=== PATIENT | female | born 1965 | race Caucasian/White ===

== ENCOUNTER → 2017-12-25 10:00 | Outpatient (CLI) | payer MEDICARE, MEDICAID, SELFPAY | PROVIDERS: PCP Nurse Practitioner Family; Visit Provider Urology | DX: N39.41 Urge incontinence (principal); N31.9 Neuromuscular dysfunction of bladder, unspecified | CPT/HCPCS: 99213 ==

== ENCOUNTER 2018-01-04 05:26 | Inpatient (IN) | payer MEDICARE, MEDICAID, SELFPAY ==
[2018-01-04] VITALS (146 sets, daily range): BP systolic 76–173; BP diastolic 44–130; PULSE 0–184; RESP 13–54; TEMP 36.8–41.4; O2SAT 84–100
[2018-01-04] MEDS: Lactated Ringers 1,000 ML 2000 ML IV (05:35)
--- NOTE | 2018-01-04 05:39 | ED.GENADUL_ITS ---
Disposition Clinical Impression: UTI (urinary tract infection), Sepsis, JOSEPH (acute kidney injury), Non-STEMI ( non-ST elevated myocardial infarction), Electrolyte abnormality Disposition: [facility] INPATIENT Condition: Critical Medical Decision Making - Lab Data Results reviewed for labs ordered during visit: Yes - EKG Data -: EKG Interpreted by Me - Radiology Data Radiology results: report reviewed, image reviewed - Medical Decision Making Patient found to be febrile and tachycardic with altered mental status. Baseline is tremor with difficulty swallowing and speaking but capable of same. Her legs are mottled. Will get 2 IVs established and give 2 L of LR. Will Place Mccall for urine output. Pursue septic workup including chest x-ray and urine as well as blood cultures. Abdomen appears to be soft and nontender. Patient's heart rate has remained around 100-110. Systolic pressure has been greater than 100. She is still slightly mottled. Mental status is unchanged. Laboratory miranda she is found to have a white count of 12. She has evidence of JOSEPH with a BUN of 36 and a creatinine of 2.2. Potassium is 5.2. Magnesium 3.2. Glucose was called as a critical value at 39. She was given an amp of D50. 2 L of LR has finished and she was switched over to D5 LR at 100 an hour. She does not have a history of diabetes and she is not on any insulin or oral hypoglycemics. Presumably hypoglycemia is related to sepsis. Lactic acid is 4.8. Troponin was also called as critical value at 3.72. EKG was attempted but because of her Parkinson's and her tremor there is a significant amount of artifact. It is sinus tach. At least in the precordial leads that does not appear to be any ST elevation suggesting STEMI. Her limb leads are almost impossible to read. Urinalysis is contaminated despite it being a Mccall catheter specimen. A repeat urine was obtained and continues to have squamous contamination but she has packed feels bacteria. We will go ahead and culture this. Suspect this is her source of infection. Her chest x-ray per my interpretation shows no airspace disease. Repeat blood glucose by fingerstick is 215. She still very tremulous. I am going to give her a small dose of Ativan 0.25 mg IV to see if this helps with her tremor so we can try to get a better EKG. I think her troponin is probably related to a non-STEMI due to sepsis. I have ordered 300 of aspirin rectally. I have also ordered a gram of ceftriaxone IV. Patient discussed with hospitalist, Dr. Fermin. Ativan did help with her tremor to enough degree that a reasonable EKG was obtained. It is sinus tachycardia at 111. There are no acute ST elevations noted. There may be mild ST depressions in the inferior lateral leads but these are inconsistent and may be related to artifact versus true ST depression. Her mental status has not really improved. Her heart rate and blood pressure have remained stable. Saturations are most likely low to mid 90s on oxygen but because of poor waveform is difficult to ascertain with certainty. She does not appear to be in respiratory distress. Her lungs continue to sound clear. Chest x-ray per my interpretation is clear. Hospitalist has agreed to keep the patient here in the ICU. Repeat urine continues to show some squamous epithelial contamination. However, she also continues to be packed with bacteria. Lab suggested just doing a culture but feel that the squamous contamination from a Mccall specimen is likely related to her just being so dehydrated. So presumably this is a uroseptic picture. Ceftriaxone is going in. She will be admitted to the ICU here to be stabilized. Diagnosis is sepsis from presumed UTI, acute kidney injury, non- STEMI, electrolyte abnormalities. History of Present Illness - General Stated complaint: CALEX Time Seen by Provider: 01/04/18 05:27 Source: EMS, old records reviewed Mode of arrival: EMS Limitations: altered mental status - History of Present Illness Initial comments: Patient sent over from [facility] for evaluation of fever, altered mental status, increased tremor and spasticity. Patient has a history of Parkinson's and has difficulty swallowing, tremor, spasticity at baseline. This morning noted to be mottled and altered. She typically is able to speak but is not currently doing so. Her tremor and spasticity seemed to be worse. She was sent here for evaluation. - Related Data Baclofen 10 mg PO HS prn #30 tab-cap 07/25/16 Amantadine [Symmetrel] 200 mg PO BID 08/15/16 Acetaminophen [Tylenol] 650 mg PO Q4H PRN PRN tab-cap 11/15/16 FLUoxetine [PROzac] 20 mg PO DAILY tab-cap 11/15/16 Polyethylene Glycol 3350 [Miralax] 17 gm PO DAILY PRN 08/15/17 Ropinirole HCl [Requip] 0.25 mg PO TID 7 Days #20 tablet 08/15/17 Carbidopa/Levodopa [Rytary Er 48.75 Mg-195 Mg Cap] 1 each PO TID 08/30/17 Naproxen Sodium [Aleve] 220 mg PO Q12H tab-cap 12/25/17 Omeprazole 20 mg PO DAILY tab-cap 12/25/17 Propranolol HCl 40 mg PO DAILY 12/25/17 Tolterodine [Detrol] 2 mg PO BID tab-cap 12/25/17 Bisacodyl [Dulcolax Suppository] 1 supp KS PRN PRN 01/04/18 Calcium Carb *Tums* [Tums] 1 tab PO Q6H PRN 01/04/18 Docusate Sodium 100 mg PO BID PRN 01/04/18 Melatonin 3 mg PO HS PRN 01/04/18 Milk of Magnesia [Milk Of Magnesia] 30 mg PO HS PRN 01/04/18 Na Phos,M-B/Na Phos,Di-Ba [Fleet Enema] 1 btl KS PRN PRN 01/04/18 Allergies Allergy/AdvReac Type Severity Reaction Status Date / Time environmental Allergy Uncoded 01/04/18 06:56 Review of Systems Limitations: ROS unobtainable due to patients medical condition Past Medical History - Past Medical History Medical history: arthritis, hyperlipidemia, hypertension Parkinson's disease Surgical history: hysterectomy - Social History Alcohol use: none Drug use: none Living Situation: lives in residential General Exam - General Limitations: altered mental status General appearance: other (Eyes are open but she is nonverbal and does not follow direction.) - Head Head exam: Present: atraumatic, normocephalic - Eye Eye exam: Present: normal apperance, PERRL - ENT ENT exam: Present: mucous membranes moist - Respiratory Respiratory exam: Present: normal lung sounds bilaterally (No wheezing or rhonchi appreciated anteriorly or laterally.). Absent: respiratory distress, accessory muscle use - Cardiovascular Cardiovascular Exam: Present: normal rhythm, tachycardia, normal heart sounds, other (Distal peripheral pulses intact) - GI/Abdominal GI/Abdominal exam: Present: soft. Absent: distended, tenderness - Extremities Exam Extremities exam: Present: other (Spasticity of extremities noted) - Neurological Exam Neurological exam: Present: altered, CN II-XII intact, other (Tremor present in upper extremities right greater than left. Spasticity noted in lower extremities. Nonverbal and altered but awake. No obvious cranial nerve deficit.) - Skin Skin exam: Present: warm, diaphoretic, mottled (Bilateral legs) Critical Care Time Critical Care Time: Yes Total Critical Care Time: 65
[2018-01-04 05:54] LABS: Abs Immature Grans 0.04 k/cumm (0.0-0.09); Absolute Basophil Count 0.01 k/cumm (0.0-0.2); Absolute Eosinophil Count 0.01 k/cumm (0.0-0.7); Absolute Lymphocyte Count 0.67 k/cumm (1.2-3.4); Absolute Monocyte Count 1.16 k/cumm (0.11-0.7); Basophils % 0.1; Eosinophils % 0.1; HCT 37.9 % (36.0-46.0); HGB 12.8 g/dL (12.0-15.5); Immature Grans % 0.3; Lymphocytes % 5.5; Mean Corp. HGB Concentration 33.8 g/dL (32.0-36.0); Mean Corpuscular Hemoglobin 30.5 pg (27.0-33.0); Mean Corpuscular Volume 90.5 fL (80-95); Mean Platelet Volume 9.9 fL (8.0-11.0); Monocytes % 9.5; Neutrophils % 84.5; Platelet Count 319 x1000/uL (130-400); RBC 4.19 m/cumm (4.00-5.20); RBC Distribution Width 13.2 % (11.7-14.6); White Blood Cell Count 12.19 k/cumm (4.4-10.8)
[2018-01-04 06:02] LABS: Bilirubin Negative (Negative); Blood Negative (Negative); Clarity Cloudy; Glucose Negative (Negative); Ketones 15 mg/dL (Negative); Leukocyte Esterase Trace (Negative); Nitrite Negative (Negative); Specific Gravity >= 1.030 (1.005-1.025); Urobilinogen 0.2 EU/dL (Up TO 0.2); pH 5.5 (5-8)
[2018-01-04] MEDS: Acetaminophen 650 MG SUPP PR ×3 (06:09→13:04)
[2018-01-04 06:15] LABS: Lactate-non-spesis 4.8 mmol/L (0.6-1.4)
[2018-01-04 06:17] LABS: Bacteria Packed HPF (Negative); C & S Indicated? No/Sq. Contamination; Casts Negative LPF (Negative); Crystals Moderate Amorphous HPF (Negative); Epithelial Cells Many HPF (Negative); Mucus Moderate (Negative); RBC Negative (0-2); WBC 0-2 HPF (0-5)
--- NOTE | 2018-01-04 06:20 | DI.REPORT_ITS ---
SYMPTOM/DIAGNOSIS: FEVER, ALTERED MENTAL STATUS PORTABLE AP CHEST: 01/04 Note is made of motion artifact. Heart is not enlarged. The lungs are grossly clear and well expanded. CONCLUSION: No evidence of acute disease.
[2018-01-04 06:24] LABS: ALT 39 U/L (12-78); AST 337 U/L (15-37); Albumin 4.8 g/dL (3.4-5.0); Alkaline Phosphatase 98 U/L (46-116); Anion Gap 16.1 mmol/L (3-11); BUN 36 mg/dL (7-18); Bilirubin, Total 1.6 mg/dL (0.2-1.0); CO2 26.9 mmol/L (21.0-32.0); Chloride 101 mmol/L (98-107); Estimated GFR 23.26 (mL/min/1.73m2); Magnesium 3.2 mg/dL (1.8-2.4); Potassium 5.2 mmol/L (3.5-5.1); Sodium 144 mmol/L (136-145); Total Protein 8.4 g/dL (6.4-8.2)
[2018-01-04 06:25] LABS: Glucose 39 mg/dL (70-100); Troponin I 3.72 ng/mL (0.00-0.06)
[2018-01-04] MEDS: Dextrose 50%-Water 25 GM/50 ML SYR IVP (06:27)
[2018-01-04] MEDS: Normal Saline Flush 10 ML SYR IVP ×5 (06:32→15:57)
[2018-01-04] MEDS: DEXTROSE 5%-LACTATED RINGERS 1,000 ML 100 ML IV (06:38)
[2018-01-04 06:42] LABS: Bilirubin Negative (Negative); Blood Negative (Negative); Clarity Cloudy; Glucose Negative (Negative); Ketones Trace mg/dL (Negative); Leukocyte Esterase Trace (Negative); Nitrite Negative (Negative); Specific Gravity >= 1.030 (1.005-1.025); Urobilinogen 0.2 EU/dL (Up TO 0.2); pH 5.5 (5-8)
[2018-01-04 06:56] LABS: Bacteria Packed HPF (Negative); C & S Indicated? No/Sq. Contamination; Crystals Moderate Amorphous HPF (Negative); Epithelial Cells Moderate HPF (Negative); Mucus Trace (Negative); RBC Negative (0-2); WBC 0-2 HPF (0-5)
[2018-01-04] MEDS: LORazepam 2 MG/ML VIAL 0.25 MG IVP (07:01)
[2018-01-04] MEDS: Aspirin 300 MG SUPP PR (07:01)
--- NOTE | 2018-01-04 07:16 | NUR.NOTE ---
Nursing Note: Pt has remained on continuous cardiac cath lab radiology technologist but due to tremors vital signs have not been accurate- only able to obtain manual BPs. MD arroyo
--- NOTE | 2018-01-04 08:51 | DI.VRAD_ITS ---
EXAM: XR Chest, 1 View EXAM DATE/TIME: 01/04/2018 5:43 AM CLINICAL HISTORY: 52 years old, female; Signs and symptoms; Fever and other: AMS; Patient HX: PT unable to stay still or follow breathing instructions, supine image TECHNIQUE: XR of the chest, 1 view. COMPARISON MORE: SC - PORTABLE AP CHEST, POST LINE 10/08/2017 1:24:23 PM COMPARISON: CR - CHEST 2 VIEWS PA,LAT 2017-08-15 18:01 FINDINGS: Tubes, lines and devices: Nasogastric and endotracheal tubes have been removed. Lungs: Unremarkable. No consolidation. Pleural space: Unremarkable. No pleural effusion. No pneumothorax. Heart/Mediastinum: The cardiomediastinal silhouette is stable in appearance allowing for differences in positioning. Bones/joints: A chronic right rib fracture is again present. IMPRESSION: No evidence for acute pulmonary disease. Dictated and Authenticated by: Brennon Cohen MD. Ordering:DARLEEN ALFRED MD
--- NOTE | 2018-01-04 09:19 | PDOC.CMIN ---
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 CURRENT FUNCTIONAL STATUS:: Jaylyn is unable to engage in CM interview; CM will continue to follow. ADVANCE DIRECTIVES:: COLST on file Has patient been provided with information about the portal?: No Did the patient sign up for the portal?: No CODE STATUS:: Full Code INSURANCE COVERAGE / FINANCIAL ISSUES:: Medicare, Medicaid CURRENT HOME/COMMUNITY SERVICES/EQUIPMENT:: Jaylyn is a resident at [facility], the facility manages all of her equipment and service needs. PRIMARY CARE PHYSICIAN:: Barbara Almaguer POTENTIAL DISCHARGE NEEDS:: Coordinated return to [facility]. PATIENT/FAMILY EDUCATION NEEDS:: Review of discharge instructions. ANTICIPATED BARRIERS TO DISCHARGE:: None identifed. TRANSPORTATION:: Via [employer]. [employer] [facility] W[employer]C Van PLAN:: Jaylyn will be treated for sepsis and monitored in the ICU, CM will continue to follow and coordinate her return to [facility] when appropriate.
[2018-01-04] MEDS: Heparin 5,000 UNITS/ML VIAL 5000 UNITS SC ×2 (09:28→21:58)
--- NOTE | 2018-01-04 09:37 | INITIAL_ITS ---
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 CURRENT FUNCTIONAL STATUS:: Jaylyn is unable to engage in CM interview; CM will continue to follow. ADVANCE DIRECTIVES:: COLST on file Has patient been provided with information about the portal?: No Did the patient sign up for the portal?: No CODE STATUS:: Full Code INSURANCE COVERAGE / FINANCIAL ISSUES:: Medicare, Medicaid CURRENT HOME/COMMUNITY SERVICES/EQUIPMENT:: Jaylyn is a resident at [facility], the facility manages all of her equipment and service needs. PRIMARY CARE PHYSICIAN:: Barbara Almaguer POTENTIAL DISCHARGE NEEDS:: Coordinated return to [facility]. PATIENT/FAMILY EDUCATION NEEDS:: Review of discharge instructions. ANTICIPATED BARRIERS TO DISCHARGE:: None identifed. TRANSPORTATION:: Via [employer]. [facility] Van PLAN:: Jaylyn will be treated for sepsis and monitored in the ICU, CM will continue to follow and coordinate her return to [facility] when appropriate.
--- NOTE | 2018-01-04 09:56 | NUR.NOTE ---
Nursing Note: Per H&R, unknown med on JUL is Frozen supplement. PC to ICU to report to TOM Reddy. JUL with name of supplement highlighted sent to ICU
[2018-01-04] MEDS: LORazepam 2 MG/ML VIAL 1 MG IVP ×4 (10:32→11:50)
[2018-01-04 11:49] LABS: Anion Gap 14.8 mmol/L (3-11); BUN 42 mg/dL (7-18); CO2 24.2 mmol/L (21.0-32.0); Calcium 9.3 mg/dL (8.5-10.1); Chloride 104 mmol/L (98-107); Estimated GFR 16.26 (mL/min/1.73m2); Glucose 134 mg/dL (70-100); Potassium 3.3 mmol/L (3.5-5.1); Sodium 143 mmol/L (136-145)
[2018-01-04 12:03] LABS: Troponin I 7.57 ng/mL (0.00-0.06)
[2018-01-04] MEDS: Carbidopa 25/Levodopa 100 TAB NG ×3 (12:29→21:58)
[2018-01-04] MEDS: Insulin Aspart 300 UNITS/3 ML PEN SC ×3 (12:46→22:51)
[2018-01-04] MEDS: POTASSIUM CHLORIDE/D5-0.45NACL 1,000 ML 125 MEQ IV (13:03)
[2018-01-04 13:44] LABS: Creatine Kinase 5697 U/L (26-192)
--- NOTE | 2018-01-04 14:48 | PDOC.HP ---
Date of Service: 01/04/18 Time of Service: 14:49 Assessment/Plan - Assessment/Plan (1) Sepsis syndrome Assessment: Etiology is unclear at this time. Urine does appear to be moderately infected. Does not appear to be a respiratory infection. CSF testing is pending. Empiric therapy with Zosyn 3.375 g IV every 6 hours. Urine culture and blood cultures are pending. Has not required pressor support as yet. (2) Secondary rhabdomyolysis Assessment: CPK level is over 5000. She had a prolonged tremulous episode/seizure that has caused significant muscle breakdown. Creatinine has bumped to 2.20. Will give IV fluids and monitor renal function. Follow CPK levels. (3) Non-ST elevation RI (NSTEMI) Assessment: Troponin bump in the absence of obvious chest pain or EKG changes suggestive of a type II acute coronary syndrome. Appears to be related to demand ischemia secondary to the severe tremulous episode, high fever. Will treat underlying cause. Monitor EKG. Echocardiogram in the a.m. Further workup for coronary disease as an outpatient or as warranted. (4) Parkinsons disease Assessment: Patient has a genetic form of Parkinson's disease not readily amenable to medical Rx. She saw Dr. Gifford 11/28/2017 at which time they were discussing a brain stimulator. She does not appear to have missed any significant Sinemet dosing. NG tube was placed and she will be on Sinemet 25/100 4 times daily. (5) Discharge planning issues Assessment: Patient is a full code per confirmation with family members. She is admitted to our ICU in acute care status. Will provide supportive care and stabilization in anticipation of possible transfer to a tertiary care center once stable. Total time arranging her inpatient admission 224 minutes. C C: Dr. Essence Flood, [facility] History of Present Illness - History of Present Illness Chief Complaint: Sepsis/febrile seizure/rhabdomyolysis/non-ST elevation RI History of Present Illness: This is a 52-year-old woman debilitated by severe Parkinson's disease that resides at [facility]. She apparently had a good day yesterday visited with family and was interactive. She did complain somewhat of a sore neck and felt warm. Family members did not notice any other systemic complaints such as cough or GI distress. Staff at [facility] noted she was alert and responsive through the evening but at 4:30 AM she was noted to be unresponsive and shaking. She was transferred to [facility]. In the emergency room she was extremely tremulous and unresponsive to commands. She had a fever of 41.4?C. She got 0.25 mg of IV lorazepam which suppressed some of the tremor. Initial urinalysis suggested infection and she was empirically started on ceftriaxone IV. Initial troponin was elevated at 3.72, lactate elevated at 4.8. She was transferred to the intensive care unit after discussion with family members. It was felt that she needed to be stabilized prior to transfer to tertiary care if that was indicated. Her initial course in the ICU remained unstable. She continued to have severe tremor and high fever. She was cooled with ice therapy, received per rectum acetaminophen, Lorazepam 1 mg IV was given in bolus form ?3. The tremulousness subsided but she remained unresponsive. Consultation with Dr. Gifford from neurology was obtained. There was initial concern that this could be neuroleptic malignant syndrome on the basis of Parkinson medication withdrawal. Cogentin 1 mg IV twice daily was ordered. EEG monitoring was applied. Keppra 2000 mg ?1. Seizure spikes were not seen on EEG testing. Nonetheless IV Keppra was recommended, 500 mg twice daily. An NG tube was placed and Sinemet 25/100 4 times daily was ordered. Her antibiotics were changed to Zosyn 3.375 g every 6 hours. A repeat EKG did not show significant ST to T changes. Her vital signs were reasonably stable and she did not need pressor support. She maintained her sats on room air. Given her earlier complaint of neck pain and LP is being obtained. Patient remains critical. A family meeting was held. We discussed transfer to a tertiary care center once stabilized. Review of Systems - Review of Systems Constitutional: Fever Respiratory: denies: Cough, Shortness of Breath Cardiovascular: denies: Chest Pain, Palpitations Gastrointestinal: denies: Nausea, Vomiting, Abdominal Pain Musculoskeletal: Neck Pain (Per family report) Other: As obtained from family members - Medications/Allergies Allergies/Adverse Reactions: Allergies Allergy/AdvReac Type Severity Reaction Status Date / Time environmental Allergy Uncoded 01/04/18 06:56 Medications: Current Medications Acetaminophen (Tylenol) 650 mg SC Q4H PRN PRN Last Admin: 01/04/18 13:04 Dose: 650 mg Albuterol Sulfate (Proventil Updraft) 2.5 mg UPD Q2H PRN PRN Carbidopa/Levodopa (Sinemet-25/100 Tablet) 1 tab NG QID [facility] Last Admin: 01/04/18 12:29 Dose: 1 tab Dextrose (Insta-Glucose) 0 gm PO DIRECTED PRN Dextrose/Water () 0 gm IVP DIRECTED PRN Dimethicone/Zinc Oxide (Charla Protect Cream) 0 gm TP PRN PRN Heparin Sodium (Porcine) () 5,000 units SC Q12H [facility] Last Admin: 01/04/18 09:28 Dose: 5,000 units Ceftriaxone Sodium/Dextrose (Rocephin) Confirm Administered Dose 1 gm in 50 mls @ as directed .ROUTE .DM PRN Piperacillin/Tazobactam/Dextrose (Zosyn) 3.375 gm in 50 mls @ 100 mls/hr IVPB Q6H [facility] Last Admin: 01/04/18 09:58 Dose: 100 mls/hr Potassium Chloride/Sodium Chloride (Kcl 20meq/D5-0.45% Nacl) 1,000 mls @ 150 mls/hr IV INFUSION [facility] Last Admin: 01/04/18 13:03 Dose: 125 mls/hr IV Miscellaneous Supplies () 1 each IV DIRECTED [facility] Insulin Aspart (Novolog Flexpen) 0 units SC 0800,1200,1700 [facility] PRN Reason: Protocol Last Admin: 01/04/18 12:46 Dose: 2 units Sodium Chloride (Saline Flush 10 Ml Syringe) 0 ml IVP PRN PRN Last Admin: 01/04/18 11:50 Dose: 40 ml Objective - Exam Vitals and I&O: Vital Signs Temp 38.5 C H 01/04/18 14:14 Pulse 84 01/04/18 13:07 Resp 22 01/04/18 13:40 BP 98/76 01/04/18 13:07 Pulse Ox 98 01/04/18 14:14 Intake & Output 01/03/18 01/04/18 01/04/18 23:59 11:59 23:59 Intake Total 1999 Output Total 100 Balance 1900 Weight 51.1 kg Intake: IV 1999 Output: Urine 100 Other: Urine Color Yellow Urine Appearance Sediment General: Other (Obtunded, unresponsive) HEENT: Other (Very mild bruise in the right adventism region, both pupils markedly dilated but responsive) Neck: Supple. denies: JVD Lungs: Clear to auscultation Cardiovascular: denies: Regular rate (Tachycardic), Murmurs Abdomen: Soft. denies: Tenderness, Hepatospenomegaly Extremities: Other (Mottled appearing but warm with good distal pulses) Skin: denies: Rashes Neurological: Other (Obtunded, during her tremulous episode she did crawl her hands inward and her toes pointed inward as in decorticate posturing, this subsided when the tremulous episode stopped.) - Procedures Procedures: LP pending Chest x-ray negative Serial EKGs show some subtle inferior lead ST depression that does not progress Troponins 3.72, 7.57 Results - Laboratory Data Result Diagrams: 01/04/18 05:40 01/04/18 11:35 Laboratory Results: Laboratory Tests 01/04/18 01/04/18 01/04/18 05:40 05:40 05:56 WBC 12.19 H RBC 4.19 Hgb 12.8 Hct 37.9 MCV 90.5 MCH 30.5 MCHC 33.8 RDW 13.2 Plt Count 319 MPV 9.9 Immature Gran % 0.3 Neutrophils % 84.5 Lymphocytes % 5.5 Monocytes % 9.5 Eosinophils % 0.1 Basophils % 0.1 Absolute Neutrophils 10.30 H Absolute Lymphocytes 0.67 L Absolute Monocytes 1.16 H Absolute Eosinophils 0.01 Absolute Basophils 0.01 Sodium 144 Potassium 5.2 H Chloride 101 Carbon Dioxide 26.9 Anion Gap 16.1 H BUN 36 H Creatinine 2.20 H Estimated GFR/1.73 m2 23.26 Glucose 39 L Lactate Calcium 10.0 Magnesium 3.2 H Total Bilirubin 1.6 H AST 337 H ALT 39 Alkaline Phosphatase 98 Troponin I 3.72 H Total Protein 8.4 H Albumin 4.8 Urine Color Yellow Urine Clarity Cloudy Urine pH 5.5 Ur Specific Ezel >= 1.030 H Urine Protein 30 H Urine Ketones 15 H Urine Blood Negative Urine Nitrite Negative Urine Bilirubin Negative Urine Urobilinogen 0.2 Ur Leukocyte Esterase Trace H Urine RBC Negative Urine WBC 0-2 Ur Epithelial Cells Many Urine Crystals Moderate amorphous Urine Bacteria Packed Urine Casts Negative Urine Mucus Moderate Ur Culture Indicated? No/sq. contamination Urine Glucose Negative 01/04/18 01/04/18 06:00 06:30 WBC RBC Hgb Hct MCV MCH MCHC RDW Plt Count MPV Immature Gran % Neutrophils % Lymphocytes % Monocytes % Eosinophils % Basophils % Absolute Neutrophils Absolute Lymphocytes Absolute Monocytes Absolute Eosinophils Absolute Basophils Sodium Potassium Chloride Carbon Dioxide Anion Gap BUN Creatinine Estimated GFR/1.73 m2 Glucose Lactate 4.8 H Calcium Magnesium Total Bilirubin AST ALT Alkaline Phosphatase Troponin I Total Protein Albumin Urine Color Yellow Urine Clarity Cloudy Urine pH 5.5 Ur Specific Ezel >= 1.030 H Urine Protein 30 H Urine Ketones Trace H Urine Blood Negative Urine Nitrite Negative Urine Bilirubin Negative Urine Urobilinogen 0.2 Ur Leukocyte Esterase Trace H Urine RBC Negative Urine WBC 0-2 Ur Epithelial Cells Moderate Urine Crystals Moderate amorphous Urine Bacteria Packed Urine Casts Urine Mucus Trace Ur Culture Indicated? No/sq. contamination Urine Glucose Negative - Imaging Studies Imaging Studies: Chest x-ray negative
--- NOTE | 2018-01-04 15:05 | PDOC.HP_ITS ---
Date of Service: 01/04/18 Time of Service: 14:49 Assessment/Plan - Assessment/Plan (1) Sepsis syndrome Assessment: Etiology is unclear at this time. Urine does appear to be moderately infected. Does not appear to be a respiratory infection. CSF testing is pending. Empiric therapy with Zosyn 3.375 g IV every 6 hours. Urine culture and blood cultures are pending. Has not required pressor support as yet. (2) Secondary rhabdomyolysis Assessment: CPK level is over 5000. She had a prolonged tremulous episode/seizure that has caused significant muscle breakdown. Creatinine has bumped to 2.20. Will give IV fluids and monitor renal function. Follow CPK levels. (3) Non-ST elevation DE (NSTEMI) Assessment: Troponin bump in the absence of obvious chest pain or EKG changes suggestive of a type II acute coronary syndrome. Appears to be related to demand ischemia secondary to the severe tremulous episode, high fever. Will treat underlying cause. Monitor EKG. Echocardiogram in the a.m. Further workup for coronary disease as an outpatient or as warranted. (4) Parkinsons disease Assessment: Patient has a genetic form of Parkinson's disease not readily amenable to medical Rx. She saw Dr. Gifford 11/28/2017 at which time they were discussing a brain stimulator. She does not appear to have missed any significant Sinemet dosing. NG tube was placed and she will be on Sinemet 25/ 100 4 times daily. (5) Discharge planning issues Assessment: Patient is a full code per confirmation with family members. She is admitted to our ICU in acute care status. Will provide supportive care and stabilization in anticipation of possible transfer to a tertiary care center once stable. Total time arranging her inpatient admission 224 minutes. C C: Dr. Essence Flood, [facility] History of Present Illness - History of Present Illness Chief Complaint: Sepsis/febrile seizure/rhabdomyolysis/non-ST elevation DE History of Present Illness: This is a 52-year-old woman debilitated by severe Parkinson's disease that resides at [facility] and [facility]. She apparently had a good day yesterday visited with family and was interactive. She did complain somewhat of a sore neck and felt warm. Family members did not notice any other systemic complaints such as cough or GI distress. Staff at [facility] noted she was alert and responsive through the evening but at 4:30 AM she was noted to be unresponsive and shaking. She was transferred to [facility]. In the emergency room she was extremely tremulous and unresponsive to commands. She had a fever of 41.4 C. She got 0.25 mg of IV lorazepam which suppressed some of the tremor. Initial urinalysis suggested infection and she was empirically started on ceftriaxone IV. Initial troponin was elevated at 3.72, lactate elevated at 4.8. She was transferred to the intensive care unit after discussion with family members. It was felt that she needed to be stabilized prior to transfer to tertiary care if that was indicated. Her initial course in the ICU remained unstable. She continued to have severe tremor and high fever. She was cooled with ice therapy, received per rectum acetaminophen, Lorazepam 1 mg IV was given in bolus form 3. The tremulousness subsided but she remained unresponsive. Consultation with Dr. Gifford from neurology was obtained. There was initial concern that this could be neuroleptic malignant syndrome on the basis of Parkinson medication withdrawal. Cogentin 1 mg IV twice daily was ordered. EEG monitoring was applied. Keppra 2000 mg 1. Seizure spikes were not seen on EEG testing. Nonetheless IV Keppra was recommended, 500 mg twice daily. An NG tube was placed and Sinemet 25/100 4 times daily was ordered. Her antibiotics were changed to Zosyn 3.375 g every 6 hours. A repeat EKG did not show significant ST to T changes. Her vital signs were reasonably stable and she did not need pressor support. She maintained her sats on room air. Given her earlier complaint of neck pain and LP is being obtained. Patient remains critical. A family meeting was held. We discussed transfer to a tertiary care center once stabilized. Review of Systems - Review of Systems Constitutional: Fever Respiratory: denies: Cough, Shortness of Breath Cardiovascular: denies: Chest Pain, Palpitations Gastrointestinal: denies: Nausea, Vomiting, Abdominal Pain Musculoskeletal: Neck Pain (Per family report) Other: As obtained from family members - Medications/Allergies Allergies/Adverse Reactions: Allergies Allergy/AdvReac Type Severity Reaction Status Date / Time environmental Allergy Uncoded 01/04/18 06:56 Medications: Current Medications Acetaminophen (Tylenol) 650 mg DE Q4H PRN PRN Last Admin: 01/04/18 13:04 Dose: 650 mg Albuterol Sulfate (Proventil Updraft) 2.5 mg UPD Q2H PRN PRN Carbidopa/Levodopa (Sinemet-25/100 Tablet) 1 tab NG QID [facility] Last Admin: 01/04/18 12:29 Dose: 1 tab Dextrose (Insta-Glucose) 0 gm PO DIRECTED PRN Dextrose/Water () 0 gm IVP DIRECTED PRN Dimethicone/Zinc Oxide (Charla Protect Cream) 0 gm TP PRN PRN Heparin Sodium (Porcine) () 5,000 units SC Q12H [facility] Last Admin: 01/04/18 09:28 Dose: 5,000 units Ceftriaxone Sodium/Dextrose (Rocephin) Confirm Administered Dose 1 gm in 50 mls @ as directed .ROUTE .DM PRN Piperacillin/Tazobactam/Dextrose (Zosyn) 3.375 gm in 50 mls @ 100 mls/hr IVPB Q6H [facility] Last Admin: 01/04/18 09:58 Dose: 100 mls/hr Potassium Chloride/Sodium Chloride (Kcl 20meq/D5-0.45% Nacl) 1,000 mls @ 150 mls/hr IV INFUSION [facility] Last Admin: 01/04/18 13:03 Dose: 125 mls/hr IV Miscellaneous Supplies () 1 each IV DIRECTED [facility] Insulin Aspart (Novolog Flexpen) 0 units SC 0800,1200,1700 [facility] PRN Reason: Protocol Last Admin: 01/04/18 12:46 Dose: 2 units Sodium Chloride (Saline Flush 10 Ml Syringe) 0 ml IVP PRN PRN Last Admin: 01/04/18 11:50 Dose: 40 ml Objective - Exam Vitals and I&O: Vital Signs Temp 38.5 C H 01/04/18 14:14 Pulse 84 01/04/18 13:07 Resp 22 01/04/18 13:40 BP 98/76 01/04/18 13:07 Pulse Ox 98 01/04/18 14:14 Intake & Output 01/03/18 01/04/18 01/04/18 23:59 11:59 23:59 Intake Total 1999 Output Total 100 Balance 1900 Weight 51.1 kg Intake: IV 1999 Output: Urine 100 Other: Urine Color Yellow Urine Appearance Sediment General: Other (Obtunded, unresponsive) HEENT: Other (Very mild bruise in the right muslim region, both pupils markedly dilated but responsive) Neck: Supple. denies: JVD Lungs: Clear to auscultation Cardiovascular: denies: Regular rate (Tachycardic), Murmurs Abdomen: Soft. denies: Tenderness, Hepatospenomegaly Extremities: Other (Mottled appearing but warm with good distal pulses) Skin: denies: Rashes Neurological: Other (Obtunded, during her tremulous episode she did crawl her hands inward and her toes pointed inward as in decorticate posturing, this subsided when the tremulous episode stopped.) - Procedures Procedures: LP pending Chest x-ray negative Serial EKGs show some subtle inferior lead ST depression that does not progress Troponins 3.72, 7.57 Results - Laboratory Data Result Diagrams: 01/04/18 05:40 01/04/18 11:35 Laboratory Results: Laboratory Tests 01/04/18 01/04/18 01/04/18 05:40 05:40 05:56 WBC 12.19 H RBC 4.19 Hgb 12.8 Hct 37.9 MCV 90.5 MCH 30.5 MCHC 33.8 RDW 13.2 Plt Count 319 MPV 9.9 Immature Gran % 0.3 Neutrophils % 84.5 Lymphocytes % 5.5 Monocytes % 9.5 Eosinophils % 0.1 Basophils % 0.1 Absolute Neutrophils 10.30 H Absolute Lymphocytes 0.67 L Absolute Monocytes 1.16 H Absolute Eosinophils 0.01 Absolute Basophils 0.01 Sodium 144 Potassium 5.2 H Chloride 101 Carbon Dioxide 26.9 Anion Gap 16.1 H BUN 36 H Creatinine 2.20 H Estimated GFR/1.73 m2 23.26 Glucose 39 L Lactate Calcium 10.0 Magnesium 3.2 H Total Bilirubin 1.6 H AST 337 H ALT 39 Alkaline Phosphatase 98 Troponin I 3.72 H Total Protein 8.4 H Albumin 4.8 Urine Color Yellow Urine Clarity Cloudy Urine pH 5.5 Ur Specific Crawford >= 1.030 H Urine Protein 30 H Urine Ketones 15 H Urine Blood Negative Urine Nitrite Negative Urine Bilirubin Negative Urine Urobilinogen 0.2 Ur Leukocyte Esterase Trace H Urine RBC Negative Urine WBC 0-2 Ur Epithelial Cells Many Urine Crystals Moderate amorphous Urine Bacteria Packed Urine Casts Negative Urine Mucus Moderate Ur Culture Indicated? No/sq. contamination Urine Glucose Negative 01/04/18 01/04/18 06:00 06:30 WBC RBC Hgb Hct MCV MCH MCHC RDW Plt Count MPV Immature Gran % Neutrophils % Lymphocytes % Monocytes % Eosinophils % Basophils % Absolute Neutrophils Absolute Lymphocytes Absolute Monocytes Absolute Eosinophils Absolute Basophils Sodium Potassium Chloride Carbon Dioxide Anion Gap BUN Creatinine Estimated GFR/1.73 m2 Glucose Lactate 4.8 H Calcium Magnesium Total Bilirubin AST ALT Alkaline Phosphatase Troponin I Total Protein Albumin Urine Color Yellow Urine Clarity Cloudy Urine pH 5.5 Ur Specific Crawford >= 1.030 H Urine Protein 30 H Urine Ketones Trace H Urine Blood Negative Urine Nitrite Negative Urine Bilirubin Negative Urine Urobilinogen 0.2 Ur Leukocyte Esterase Trace H Urine RBC Negative Urine WBC 0-2 Ur Epithelial Cells Moderate Urine Crystals Moderate amorphous Urine Bacteria Packed Urine Casts Urine Mucus Trace Ur Culture Indicated? No/sq. contamination Urine Glucose Negative - Imaging Studies Imaging Studies: Chest x-ray negative
--- NOTE | 2018-01-04 15:30 | PDOC.ANES ---
Anesthesia Note - Report Anesthesia Note: Requested by Dr. Powell to do diagnostic lumbar puncture on pt in ICU. Pt received dose heparin 5000 u SQ at 0930. Consent had been obtained from family by Dr. Powell. With nursing assist, placed pt on left side with knees bent. Skin prepped with chlorahexadine. Sterile technique, hat, mask, gloves. Lido 1% skin wheal at L4-5. Vibha 22 g spinal needle used for tap. Easy first pass for CSF. Openning pressures 13 cmH2O. csf from manometer specimen 1. Four specimen tubes collected. CSF clear to vision with no obvious blood. Specimens labeled and prepared to be sent to lab. Pt relatively non reactive for procedure. Slight moan with local infiltration.
[2018-01-04 16:24] LABS: Lactate-non-spesis 3.5 mmol/L (0.6-1.4)
--- NOTE | 2018-01-04 16:24 | PDOC.EEG ---
Date of Service: 01/04/18 EEG: [facility] INPATIENT EEG REPORT Date of Recordin01/04/18 Referring Physician: Dr. Vidya Mckoy Reason for study: Ms. So is a 52 year-old woman with Parkinsons disease admitted with sepsis with increased tremulousness concerning for seizure activity. Current Medications: See medication list. Keppra 500mg BID IV. METHODS: A 21 channel digitized electroencephalogram was performed in the [facility] ICU. The 10/20 international system of electrode placement was used and bipolar and referential electrode montages were recorded. In addition to EEG the patient was monitored for EKG and lateral/vertical eye movements. Activation procedures of photic stimulation and hyperventilation were performed if applicable. Video was used during activation procedures and during events where applicable. The duration of the recording was 3 hours 43 minutes and 59 seconds. DESCRIPTION OF EEG: The EEG was manifested by continuous, arrhythmic, moderate-amplitude activity of mixed voltage (alpha, theta, and delta). There was frequent muscle artifact but otherwise the EEG was unresponsive. The clinical state could not be determined. On video, the patient was unresponsive. There was no interictal epileptiform activity. At times, she was noted to have head, bilateral hand, and torso twitching and tremors (not at the same time), none of which was associated with any abnormal EEG activity. ACTIVATING PROCEDURES: Photic stimulation was not performed. Hyperventilation was not performed. EKG: EKG revealed normal sinus rhythm. INTERPRETATION: This EEG is abnormal due to generalized slowing and lack of reactivity. No focal or epileptiform abnormalities were seen. PRIOR EEG: none CLINICAL CORRELATION: The background slowing suggests a moderate to severe diffuse cerebral encephalopathy of broad differential including toxic-metabolic etiology. No focal regions of cerebral dysfunction or epileptiform activity was present. The plan is to continue EEG monitoring for the time being. Vidya Mckoy MD [facility] Neurology
[2018-01-04 16:25] LABS: Clarity Clear; RBC 1 /mm3 (0-5); Tube # 4; WBC 7 /mm3 (0-5); Xanthochromia Absent
--- NOTE | 2018-01-04 16:33 | PDOC.EEG_ITS ---
Date of Service: 01/04/18 EEG: [facility] INPATIENT EEG REPORT Date of Recordin01/04/18 Referring Physician: Dr. Vidya Mckoy Reason for study: Ms. So is a 52 year-old woman with Parkinsons disease admitted with sepsis with increased tremulousness concerning for seizure activity. Current Medications: See medication list. Keppra 500mg BID IV. METHODS: A 21 channel digitized electroencephalogram was performed in the [facility] ICU. The 10/20 international system of electrode placement was used and bipolar and referential electrode montages were recorded. In addition to EEG the patient was monitored for EKG and lateral/ vertical eye movements. Activation procedures of photic stimulation and hyperventilation were performed if applicable. Video was used during activation procedures and during events where applicable. The duration of the recording was 3 hours 43 minutes and 59 seconds. DESCRIPTION OF EEG: The EEG was manifested by continuous, arrhythmic, moderate-amplitude activity of mixed voltage (alpha, theta, and delta). There was frequent muscle artifact but otherwise the EEG was unresponsive. The clinical state could not be determined. On video, the patient was unresponsive. There was no interictal epileptiform activity. At times, she was noted to have head, bilateral hand, and torso twitching and tremors (not at the same time), none of which was associated with any abnormal EEG activity. ACTIVATING PROCEDURES: Photic stimulation was not performed. Hyperventilation was not performed. EKG: EKG revealed normal sinus rhythm. INTERPRETATION: This EEG is abnormal due to generalized slowing and lack of reactivity. No focal or epileptiform abnormalities were seen. PRIOR EEG: none CLINICAL CORRELATION: The background slowing suggests a moderate to severe diffuse cerebral encephalopathy of broad differential including toxic-metabolic etiology. No focal regions of cerebral dysfunction or epileptiform activity was present. The plan is to continue EEG monitoring for the time being. Vidya Mckoy MD [facility] Neurology
[2018-01-04 16:36] LABS: Lymphocytes CSF 64 % (63-99); Monocyte/Macrophage CSF 36 % (3-37); Neutrophils CSF 0 % (0-2)
[2018-01-04 16:37] LABS: Glucose (CSF) 90 mg/dL (40-70); Total Protein (CSF) 40 mg/dL (15-45)
[2018-01-04 16:47] LABS: Anion Gap 16.6 mmol/L (3-11); BUN 45 mg/dL (7-18); CO2 22.4 mmol/L (21.0-32.0); CREATININE 3.36 mg/dL (0.55-1.02); Calcium 9.1 mg/dL (8.5-10.1); Chloride 102 mmol/L (98-107); Estimated GFR 14.27 (mL/min/1.73m2); Glucose 142 mg/dL (70-100); Potassium 3.1 mmol/L (3.5-5.1); Sodium 141 mmol/L (136-145)
[2018-01-04 16:50] LABS: Troponin I 11.35 ng/mL (0.00-0.06)
[2018-01-04 16:56] LABS: Differential CSF: Performed
--- NOTE | 2018-01-04 18:30 | NCONE_ITS ---
DATE OF CONSULTATION: January 04, 2018 ASSESSMENT AND PLAN: Ms. So is a 52-year-old, right-handed woman with Parkinson's disease and dysphagia. She was admitted for sepsis with hyperthermia, hypoglycemia, NSTEMI, and acute renal failure, with questionable seizure activity manifested by tremors. The activity that was seen earlier has since resolved with the use of IV Ativan and Keppra. I recommend continuing Keppra 500 mg b.i.d. I also recommend continued EEG monitoring. I agree with LP for further evaluation to find source of sepsis especially considering neck rigidity, though this may be part of her Parkinson' s. She is at high risk of aspiration at baseline from her Parkinson's disease and thus I would consider intubation if she remains unresponsive. Continue Sinemet 25/100 q.i.d. to prevent dopamine withdrawal. Please call with any further questions or concerns. I will continue to follow along and be available for consultation. REFERRING PHYSICIAN: Brennon Fermin M.D. REASON FOR CONSULTATION: I was asked to see Ms. So in neurologic consultation by Dr. Fermin for Parkinson's. HISTORY OF PRESENT ILLNESS: Ms. 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 She lives at the [facility] and was reportedly normal at 1:00 a.m. on 01/04/18. However, on recheck at 5:00 a.m. she was noted to have altered mental status along with fever and increased tremor and spasticity for which she was brought urgently to the [facility] Emergency Room. In the Emergency Room, she was found to be septic with mottled lower extremities. She was tachycardic, hypotensive, and febrile with a T-max of 41.4. She was unresponsive to all modalities. Laboratory workup included acute renal injury, hypoglycemia with a glucose of 39, hyperkalemia of 5.2, lactic acidosis of 4.8, and elevated troponins consistent with likely NSTEMI. In the ER, she was noted to have tremors which seemed to resolve after low-dose lorazepam. After arriving in the ICU, she continued to have tremulous activity of the upper and lower extremities as well as some questionable face and mouth movements concerning for seizure activity. She was given intermittent IV Ativan and approximately 3 mg of IV Ativan was given in a 30-minute period just before the EEG was placed for apparent seizure activity, which seemed to resolve the symptoms. She still has some tremulousness now on continuous EEG monitoring, with no epileptiform activity seen. She otherwise remains unresponsive. She was loaded with 2 grams of Keppra and is on maintenance 500 mg b.i.d. IV. Her troponin continues to rise as well as her creatinine. Her CK was also elevated at >5000. She has not missed any of her Parkinson's medications. She now has an NG tube placed. I converted her Rytary dose which was 48/195 mg q.i.d. to 25/100 mg tablet of Sinemet q.i.d. The etiology of her sepsis is unclear at this point. She is currently on IV piperacillin/tazobactam. PAST MEDICAL HISTORY: 1. Parkinson's disease. 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 3. Dysphagia. 4. Hypertension. 5. Hyperlipidemia. 6. Osteoarthritis. 7. Urinary incontinence. 8. Carpal tunnel syndrome. 9. Depression. PAST SURGICAL HISTORY: 1. Tonsillectomy and adenoidectomy. 2. Hysterectomy. FAMILY HISTORY: No history of Parkinson's disease. Her youngest son has the chromosome 11 abnormality and was diagnosed with Thanh syndrome. Her older son has tremors. Her father had tremors and at age 79 with prostate and kidney cancer. Her mother had heart disease. Both of her sons have ADD/ADHD. SOCIAL HISTORY: She has two sons, ages 27 and 12. She currently resides at the [facility]. She does not smoke, drink alcohol, or use illicit drugs. She is on disability. REVIEW OF SYSTEMS: Unobtainable as the patient is unresponsive. PHYSICAL EXAM: VITAL SIGNS: T-max 41.4 degrees Celsius. Heart rate 85-102. Blood pressure 85 -155/47-92. Respiratory rate 20-30. Saturation 95-98% on room air. GENERAL: The patient is unresponsive. HEAD/FACE: No facial or cranial nerve abnormalities. NECK: Somewhat rigid and in an extended position. CARDIOVASCULAR: Regular rate and rhythm. RESPIRATORY: Clear to auscultation bilaterally. ABDOMEN: Soft, nontender, nondistended, positive bowel sounds. EXTREMITIES: Are in a decerebrate positioning with her wrists curled. No edema. No clubbing or cyanosis. No bony deformity. NEUROLOGIC EXAM: Language/Speech - patient is unresponsive. Mental status - unresponsive. GCS score is 3. Cranial nerves: She had no doll's eyes. Pupils were dilated at 6 mm, symmetric, and reactive. She had no blink reflex or gag reflex. Sensory and motor - no response to noxious stimuli in any of the extremities. She had intermittent upper extremity tremors and jerks rarely that appeared to be myoclonic in nature, and occasionally just tremors. I did not see any motor activity concerning for seizure. She had no spontaneous motor activity. Her arms and legs were in a mainly decerebrate posturing. Reflexes - hyporeflexic throughout. Toes were neutral bilaterally. Coordination - could not be tested. Gait - could not be tested.
[2018-01-04] MEDS: POTASSIUM CHLORIDE/D5-0.45NACL 1,000 ML 150 MEQ IV (18:42)
[2018-01-05] VITALS (34 sets, daily range): BP systolic 104–131; BP diastolic 49–65; PULSE 63–74; RESP 12–22; TEMP 34.9–36.8; O2SAT 98–100
[2018-01-05] MEDS: POTASSIUM CHLORIDE/D5-0.45NACL 1,000 ML 150 MEQ IV (00:48)
[2018-01-05] MEDS: Normal Saline 500 ML IV (02:24)
[2018-01-05] MEDS: VANCOMYCIN 750 MG in Normal Saline 250 ML 166.667 MG IVPB (02:24)
[2018-01-05] MEDS: Normal Saline Flush 10 ML SYR IVP (04:25)
[2018-01-05] MEDS: Insulin Aspart 300 UNITS/3 ML PEN SC (05:03)
[2018-01-05] MEDS: DEXTROSE 5%-0.45% SALINE 1,000 ML 150 ML IV ×2 (05:13→11:39)
[2018-01-05 06:57] LABS: Lactate-non-spesis 2.4 mmol/L (0.6-1.4)
[2018-01-05 07:13] LABS: Abs Immature Grans 0.09 k/cumm (0.0-0.09); Absolute Monocyte Count 0.41 k/cumm (0.11-0.7); Basophils % 0.1; Eosinophils % 0.1; HCT 33.6 % (36.0-46.0); Immature Grans % 0.5; Lymphocytes % 5.6; Mean Corp. HGB Concentration 32.7 g/dL (32.0-36.0); Mean Corpuscular Hemoglobin 30.3 pg (27.0-33.0); Mean Corpuscular Volume 92.6 fL (80-95); Mean Platelet Volume 10.5 fL (8.0-11.0); Monocytes % 2.4; Neutrophils % 91.3; Platelet Count 101 x1000/uL (130-400); RBC 3.63 m/cumm (4.00-5.20); RBC Distribution Width 14.3 % (11.7-14.6); White Blood Cell Count 17.09 k/cumm (4.4-10.8)
[2018-01-05 07:15] LABS: Absolute Basophil Count 0.02 k/cumm (0.0-0.2); Absolute Eosinophil Count 0.02 k/cumm (0.0-0.7); Absolute Lymphocyte Count 0.96 k/cumm (1.2-3.4)
[2018-01-05 07:24] LABS: PHOSPHORUS 2.6 mg/dL (2.6-4.7)
[2018-01-05 07:29] LABS: ALT 290 U/L (12-78); Alkaline Phosphatase 79 U/L (46-116); Anion Gap 12.1 mmol/L (3-11); BUN 50 mg/dL (7-18); Bilirubin, Total 1.4 mg/dL (0.2-1.0); CO2 22.9 mmol/L (21.0-32.0); Calcium 8.3 mg/dL (8.5-10.1); Chloride 103 mmol/L (98-107); Estimated GFR 12.16 (mL/min/1.73m2); Glucose 142 mg/dL (70-100); Potassium 4.2 mmol/L (3.5-5.1); Sodium 138 mmol/L (136-145); Total Protein 5.8 g/dL (6.4-8.2)
[2018-01-05 08:00] LABS: CREATININE 3.86 mg/dL (0.55-1.02)
[2018-01-05 08:01] LABS: AST 2536 U/L (15-37); Troponin I 11.03 ng/mL (0.00-0.06)
[2018-01-05 08:04] LABS: Creatine Kinase > 8000 U/L (26-192)
--- NOTE | 2018-01-05 08:21 | PDOC.EEG ---
Date of Service: 01/05/18 EEG: [facility] INPATIENT EEG REPORT Date of Recordin01/04/18 at 16:11:48 to 01/05/18 at 08:05:43 Referring Physician: Dr. Vidya Mckoy Reason for study: Ms. So is a 52 year-old woman with a history of Parkinsons disease admitted in sepsis with seizure-like activity. Current Medications: See medication list. Keppra 500mg BID. METHODS: A 21 channel digitized electroencephalogram was performed in the [facility] ICU. The 10/20 international system of electrode placement was used and bipolar and referential electrode montages were recorded. In addition to EEG the patient was monitored for EKG and lateral/vertical eye movements. Activation procedures of photic stimulation and hyperventilation were performed if applicable. Video was used throughout the recording. The duration of the recording was ~16 hours. DESCRIPTION OF EEG: There was no clear posterior dominant rhythm nor was there any clear sleep architecture. The EEG was predominated by low-moderate amplitude, polymorphic delta, theta, and alpha activity complicated by periods of muscle artifact. There was significant ICU artifact throughout. There was no obvious reactivity on the EEG. There was no epileptiform activity seen. No clinical events were reported by nursing staff. During times of high muscle artifact, the patient was noted to have posturing, grimacing, and some facial movements on video without any clear EEG correlation. ACTIVATING PROCEDURES: Photic stimulation and hyperventilation were not performed. EKG: EKG revealed normal sinus rhythm/bradycardia. INTERPRETATION: This EEG is abnormal due to lack of normal awake/asleep architecture, diffuse generalized slowing, and lack of reactivity. There were no clinical events captured and no epileptiform activity seen. PRIOR EEG: -01/04/18 (~4 hours): c/w moderate-severe generalized slowing. CLINICAL CORRELATION: The findings above are consistent with a moderate to severe diffuse cerebral encephalopathy of broad differential including toxic-metabolic etiology. No focal regions of cerebral dysfunction or epileptiform activity was present. The plan is to discontinue continuous monitoring. Vidya Mckoy MD [facility] Neurology
--- NOTE | 2018-01-05 08:29 | PDOC.EEG_ITS ---
Date of Service: 01/05/18 EEG: [facility] INPATIENT EEG REPORT Date of Recordin01/04/18 at 16:11:48 to 01/05/18 at 08:05:43 Referring Physician: Dr. Vidya Mckoy Reason for study: Ms. So is a 52 year-old woman with a history of Parkinsons disease admitted in sepsis with seizure-like activity. Current Medications: See medication list. Keppra 500mg BID. METHODS: A 21 channel digitized electroencephalogram was performed in the [facility] ICU. The 10/20 international system of electrode placement was used and bipolar and referential electrode montages were recorded. In addition to EEG the patient was monitored for EKG and lateral/ vertical eye movements. Activation procedures of photic stimulation and hyperventilation were performed if applicable. Video was used throughout the recording. The duration of the recording was ~16 hours. DESCRIPTION OF EEG: There was no clear posterior dominant rhythm nor was there any clear sleep architecture. The EEG was predominated by low-moderate amplitude, polymorphic delta, theta, and alpha activity complicated by periods of muscle artifact. There was significant ICU artifact throughout. There was no obvious reactivity on the EEG. There was no epileptiform activity seen. No clinical events were reported by nursing staff. During times of high muscle artifact, the patient was noted to have posturing, grimacing, and some facial movements on video without any clear EEG correlation. ACTIVATING PROCEDURES: Photic stimulation and hyperventilation were not performed. EKG: EKG revealed normal sinus rhythm/bradycardia. INTERPRETATION: This EEG is abnormal due to lack of normal awake/asleep architecture, diffuse generalized slowing, and lack of reactivity. There were no clinical events captured and no epileptiform activity seen. PRIOR EEG: -01/04/18 (~4 hours): c/w moderate-severe generalized slowing. CLINICAL CORRELATION: The findings above are consistent with a moderate to severe diffuse cerebral encephalopathy of broad differential including toxic-metabolic etiology. No focal regions of cerebral dysfunction or epileptiform activity was present. The plan is to discontinue continuous monitoring. Vdiya Mckoy MD [facility] Neurology
[2018-01-05] MEDS: Carbidopa 25/Levodopa 100 TAB NG ×2 (08:49→12:10)
--- NOTE | 2018-01-05 09:00 | MERGE_ITS ---
*[facility]* *[facility]* [address] [place] [address] Date of study: 01/05/2018 Transthoracic Echocardiography M-mode, complete 2D, complete spectral Doppler, and color Doppler *STUDY CONCLUSIONS* Summary: 1. Left ventricle: The cavity size was normal. There was mild focal basal hypertrophy of the septum. Systolic function was normal. The estimated ejection fraction was 55-60%. Possible mild hypokinesis of the anteroseptal myocardium. 2. Aortic valve: There was trivial regurgitation. 3. Mitral valve: Mild prolapse, involving the posterior leaflet. There was moderate regurgitation. 4. Right ventricle: The cavity size was normal. Wall thickness was normal. Systolic function was normal. 5. Tricuspid valve: Moderate prolapse, involving the anterior leaflet. There was moderate-severe regurgitation. 6. Pulmonary arteries: Pulmonary systolic pressure was mildly increased. PA peak pressure: 46mm Hg (S). *PATIENT PRESENTATION* Height: 162.6cm ((64in) ) S/D Pressure: 130 / 63 Weight: 53.1kg ((116.8lb) ) BSA: 1.56m^2 Test start time: 09:15 AM. Test stop time: 10:10 AM. Brennon Christopher Michael PERFORMING Unknown PERFORMING [facility] FILLING TECHNICIAN RT Sumeet HicksR)(PROMISE)ALEX *PROCEDURE DATA* Procedure information: The patient was identified by two identifiers. This study was interpreted by [facility]. Pertinent images and digital data are archived for permanent storage and are available for subsequent review. No prior study was available for comparison. Study status: Routine. Transthoracic echocardiography. M-mode, complete 2D, complete spectral Doppler, and color Doppler. A Transthoracic Echocardiogram was performed. Scanning was performed from the parasternal, apical, subcostal, and suprasternal notch acoustic windows. Images were obtained using an [id number] cardiac ultrasound machine. Image quality was suboptimal. The study was technically limited due to poor acoustic window availability, patient inability to follow directions, and restricted patient mobility. Study completion: The patient tolerated the procedure well. History: PMH: NSTEMI JOSEPH SEPSIS. *CARDIAC ANATOMY* Left ventricle: The cavity size was normal. There was mild focal basal hypertrophy of the septum. Systolic function was normal. The estimated ejection fraction was 55-60%. Regional wall motion abnormalities: Possible mild hypokinesis of the anteroseptal myocardium. Aortic valve: Probably trileaflet; mildly thickened leaflets. Mobility was not restricted. Doppler: Transvalvular velocity was within the normal range. There was no stenosis. There was trivial regurgitation. VTI ratio of LVOT to aortic valve: 0.62. Valve area (VTI): 2.2cm^2. Indexed valve area (VTI): 1.4cm^2/m^2. Peak velocity ratio of LVOT to aortic valve: 0.66. Valve area (Vmax): 2.3cm^2. Indexed valve area (Vmax): 1.5cm^2/m^2. Mean velocity ratio of LVOT to aortic valve: 0.58. Valve area (Vmean): 2cm^2. Indexed valve area (Vmean): 1.3cm^2/m^2. Mean gradient (S): 4.5mm Hg. Peak gradient (S): 8.6mm Hg. Aorta: Aortic root: The aortic root was normal in size. Ascending aorta: The ascending aorta was normal in size. Mitral valve: Mildly thickened leaflets. Mobility was not restricted. Mild prolapse, involving the posterior leaflet. Doppler: Transvalvular velocity was within the normal range. There was no evidence for stenosis. There was moderate regurgitation. Valve area by pressure half-time: 4.3cm^2. Indexed valve area by pressure half-time: 2.7cm^2/m^2. Left atrium: The atrium was normal in size. Right ventricle: The cavity size was normal. Wall thickness was normal. Systolic function was normal. Pulmonic valve: Poorly visualized. Tricuspid valve: Mildly thickened leaflets. Moderate prolapse, involving the anterior leaflet. Doppler: Transvalvular velocity was within the normal range. There was no evidence for stenosis. There was moderate-severe regurgitation. Pulmonary artery: Poorly visualized. Pulmonary systolic pressure was mildly increased. Right atrium: The atrium was normal in size. Pericardium: There was no pericardial effusion. Systemic veins: Inferior vena cava: The vessel was normal in size. The respirophasic diameter changes were in the normal range (greater than or equal to 50%), consistent with normal central venous pressure. Measurements Left ventricle Value Reference LV ID, ED, PLAX 5.3 cm 3.5 - 6.0 LV ID, ES, PLAX (H) 4.1 cm 2.1 - 4.0 LV PW thickness, ED, PLAX 0.8 cm LV end-diastolic volume, 1-p A2C 99 ml LV ejection fraction, 1-p A2C 58 % LV end-diastolic volume, 1-p A4C 109 ml LV ejection fraction, 1-p A4C 58 % LV e', lateral 0.122 m/sec LV E/e', lateral 5 LV e', medial 0.107 m/sec LV E/e', medial 6 LV e', average 0.114 m/sec LV E/e', average 6 Ventricular septum Value Reference IVS thickness, ED, PLAX 0.6 cm LVOT Value Reference LVOT ID, A-P 2.1 cm LVOT area 3.5 cm^2 LVOT peak velocity, S 0.97 m/sec LVOT mean velocity, S 0.59 m/sec LVOT VTI, S 19.8 cm LVOT peak gradient, S 3.8 mm Hg LVOT mean gradient, S 1.7 mm Hg Stroke volume (SV), LVOT DP 69 ml Stroke index (SV/bsa), LVOT DP 44 ml/m^2 Aortic valve Value Reference Aortic valve peak velocity, S 1.5 m/sec Aortic valve mean velocity, S 1.01 m/sec Aortic valve VTI, S 32.0 cm Aortic mean gradient, S 4.5 mm Hg Aortic peak gradient, S 8.6 mm Hg VTI ratio, LVOT/AV 0.62 Aortic valve area, VTI 2.2 cm^2 Velocity ratio, peak, LVOT/AV 0.66 Aortic valve area, peak velocity 2.3 cm^2 Velocity ratio, mean, LVOT/AV 0.58 Aortic valve area, mean velocity 2 cm^2 Aortic valve area/bsa, mean velocity 1.3 cm^2/m^2 Aorta Value Reference Aortic root ID, ED 2.8 cm Ascending aorta ID, A-P, S 3.0 cm Left atrium Value Reference LA ID, A-P, ES 2.8 cm LA ID/bsa, A-P 1.8 cm/m^2 <=2.2 LA area, ES, A4C 14.8 cm^2 8.8 - 23.4 LA area, ES, A2C 17 cm^2 LA volume, ES, 2-p 37 ml LA volume/bsa, ES, 2-p 24 ml/m^2 LA/aortic root ratio 1.01 Mitral valve Value Reference Mitral E-wave peak velocity 0.66 m/sec Mitral A-wave peak velocity 0.51 m/sec Mitral deceleration time 178 ms 150 - 230 Mitral pressure half-time 52 ms Mitral E/A ratio, peak 1.29 Mitral valve area, PHT, DP 4.3 cm^2 Pulmonary arteries Value Reference PA pressure, S, DP (H) 46 mm Hg <=30 Tricuspid valve Value Reference Tricuspid regurg peak velocity 3 m/sec Tricuspid peak RV-RA gradient 36.5 mm Hg Right atrium Value Reference RA area, ES, A4C 10.8 cm^2 8.3 - 19.5 Systemic veins Value Reference Estimated CVP 10 mm Hg Right ventricle Value Reference RV pressure, S, DP (H) 46 mm Hg <=30 Legend: (L) and (H) chris values outside specified reference range. I have personally reviewed the images and have reviewed and edited the reported findings. Electronically signed by Sydnie Fink 01/05/2018 11:04
--- NOTE | 2018-01-05 10:30 | DI.REPORT_ITS ---
SYMPTOM/DIAGNOSIS: OLIGURIC RENAL FAILURE RENAL ULTRASOUND: The right kidney measures 11.7 cm in length. The left kidney measures 10.4 cm in length. The renal echogenicity and parenchymal thickness appear normal. No hydronephrosis, calcifications or masses are seen. There are no perinephric collections. A catheter was present in the bladder. The bladder was not evaluated. IMPRESSION: Normal appearing kidneys
--- NOTE | 2018-01-05 11:22 | PDOC.CMPRO ---
Care Management Progress Note Per MD, Jaylyn will be transferred to [facility] when a bed becomes available. Jaylyn remains unconsious, is unable to communicate and has had very little output in the last twelve hours. She will transfer via EMS coordinated by Nursing [facility] [employer] [facility].
--- NOTE | 2018-01-05 12:38 | DISCHARGE ---
Discharge - Discharge Orders Referrals: Krystal Masters [ NON-[facility] STAFF PHYSICIAN] - - Discharge Plan Disposition: [facility] Condition: Critical Diet:: NPO Equipment/Supplies:: No Equipment Needed Activity:: bedrest - Instructions
--- NOTE | 2018-01-05 12:39 | PDOC.DISCH_ITS ---
Discharge - Discharge Orders Referrals: Krystal Masters [ NON-[facility] STAFF PHYSICIAN] - - Discharge Plan Disposition: [facility] Condition: Critical Diet:: NPO Equipment/Supplies:: No Equipment Needed Activity:: bedrest - Instructions
--- NOTE | 2018-01-05 12:42 | PDOC.DCSUM ---
Date of Service: 01/05/18 Time of Service: 12:42 This is a 52-year-old woman who resides at [facility] and rehab due to loss of ADLs secondary to advanced Parkinson's syndrome. 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 She was in her usual state of health on 01/03/2018. At 4:30 AM on 01/04/2018 nursing noted that she was unresponsive and shaking uncontrollably. She was transferred to the [facility] emergency room. On arrival in the emergency room her temp was elevated and later reached a max of 41.4?C. She continued to shake uncontrollably and was not conscious. She received serial doses of IV lorazepam which settled down her extreme shaking. There was concern this may be status epilepticus so she was loaded with Keppra 2000 mg IV ?1. Continuous EEG monitoring over the ensuing 24 hours did not show epileptiform activity. Her initial troponin was elevated at 3.7 and subsequently climbed to greater than 11. Serial EKG monitoring did not show significant ST to T changes and it was felt that this was a type II ACS. The patient remained encephalopathic and minimally responsive except to noxious stimuli. She was absent gag reflex but was not having any trouble with choking, she maintained O2 sats in the high 90s on room air. Her lung exam was clear. Her chest x-ray was negative. We had some thought of intubating her for protection but this never became necessary. Infectious disease: Her urine showed a few white cells but early urine culture shows mixed gram positive growth. She was initially given ceftriaxone in the emergency room and switched to Zosyn. Overnight 1 out of 2 blood cultures came back gram-positive cocci in clusters, vancomycin was added. An LP was performed that showed 7 white cells 64% lymphocytes. She was empirically started on acyclovir. Viral studies are pending. Her initial CPK was greater than 5000 and follow-up is greater than 8000. Her creatinine bumped from 2.2 to 3.86. Initially in the emergency room she produced about 200 cc of urine but overnight her urine output has dropped to 5 cc in the last 10 hours. Her lactate was 4.8 on admission and has come down to 2.4. A bedside echocardiogram showed a normal EF moderate to severe tricuspid regurg and moderate mitral regurgitation. There is a question of minimal hypokinesis of the anteroseptal wall. Images are transmitted to [facility]. Given the lack of urine output, worsening renal function, continued encephalopathy, and acute coronary syndrome she is being transferred to [facility] medicine service for further monitoring with or without inpatient hemodialysis. All Active Problems Encephalopathy acute (Acute) Pneumonia (Acute) Anemia (Acute) Acute kidney injury (Acute) Parkinsons disease (Acute) Sepsis syndrome (Acute) Secondary rhabdomyolysis (Acute) Non-ST elevation MS (NSTEMI) (Acute) Current Medications Acetaminophen (Tylenol) 650 mg MN Q4H PRN PRN Last Admin: 01/04/18 13:04 Dose: 650 mg Albuterol Sulfate (Proventil Updraft) 2.5 mg UPD Q2H PRN PRN Carbidopa/Levodopa (Sinemet-25/100 Tablet) 1 tab NG QID [facility] Last Admin: 01/05/18 12:10 Dose: 1 tab Dextrose (Insta-Glucose) 0 gm PO DIRECTED PRN Dextrose/Water () 0 gm IVP DIRECTED PRN Dimethicone/Zinc Oxide (Charla Protect Cream) 0 gm TP PRN PRN Last Admin: 01/04/18 16:17 Dose: 1 btl Heparin Sodium (Porcine) () 5,000 units SC Q12H [facility] Last Admin: 01/05/18 08:51 Dose: Not Given Acyclovir Sodium 500 mg/ (Sodium Chloride) 100 mls @ 100 mls/hr IVPB Q24H [facility] Last Admin: 01/04/18 18:41 Dose: 100 mls/hr Piperacillin/Tazobactam/Dextrose (Zosyn) 2.25 gm in 50 mls @ 100 mls/hr IV Q6H [facility] Last Admin: 01/05/18 11:39 Dose: 100 mls/hr Dextrose/Sodium Chloride (Dextrose 5%-0.45% Ns) 1,000 mls @ 150 mls/hr IV INFUSION [facility] Last Admin: 01/05/18 11:39 Dose: 150 mls/hr Vancomycin HCl 750 mg/ Sodium (Chloride) 250 mls @ 166.667 mls/hr IVPB Q36H [facility] IV Miscellaneous Supplies () 1 each IV DIRECTED [facility] Insulin Aspart (Novolog Flexpen) 0 units SC Q6H [facility] PRN Reason: Protocol Last Admin: 01/05/18 11:04 Dose: Not Given Sodium Chloride (Saline Flush 10 Ml Syringe) 0 ml IVP PRN PRN Last Admin: 01/05/18 04:25 Dose: 40 ml HOME MEDS Baclofen 10 mg PO HS prn #30 tab-cap 07/25/16 Amantadine [Symmetrel] 200 mg PO BID 08/15/16 Acetaminophen [Tylenol] 650 mg PO Q4H PRN PRN tab-cap 11/15/16 FLUoxetine [PROzac] 20 mg PO DAILY tab-cap 11/15/16 Polyethylene Glycol 3350 [Miralax] 17 gm PO DAILY PRN 08/15/17 Ropinirole HCl [Requip] 0.25 mg PO TID 7 Days #20 tablet 08/15/17 Carbidopa/Levodopa [Rytary Er 48.75 Mg-195 Mg Cap] 1 each PO TID 08/30/17 Naproxen Sodium [Aleve] 220 mg PO Q12H tab-cap 12/25/17 Omeprazole 20 mg PO DAILY tab-cap 12/25/17 Propranolol HCl 40 mg PO DAILY 12/25/17 Tolterodine [Detrol] 2 mg PO BID tab-cap 12/25/17 Bisacodyl [Dulcolax Suppository] 1 supp MN PRN PRN 01/04/18 Calcium Carb *Tums* [Tums] 1 tab PO Q6H PRN 01/04/18 Docusate Sodium 100 mg PO BID PRN 01/04/18 Melatonin 3 mg PO HS PRN 01/04/18 Milk of Magnesia [Milk Of Magnesia] 30 mg PO HS PRN 01/04/18 Na Phos,M-B/Na Phos,Di-Ba [Fleet Enema] 1 btl MN PRN PRN 01/04/18 Allergies Allergy/AdvReac Type Severity Reaction Status Date / Time environmental Allergy Uncoded 01/04/18 06:56 Laboratory Results WBC 17.09 k/cumm (4.4-10.8) H D 01/05/18 06:40 RBC 3.63 m/cumm (4.00-5.20) L 01/05/18 06:40 Hgb 11.0 g/dL (12.0-15.5) L 01/05/18 06:40 Hct 33.6 % (36.0-46.0) L 01/05/18 06:40 MCV 92.6 fL (80-95) 01/05/18 06:40 MCH 30.3 pg (27.0-33.0) 01/05/18 06:40 MCHC 32.7 g/dL (32.0-36.0) 01/05/18 06:40 RDW 14.3 % (11.7-14.6) 01/05/18 06:40 Plt Count 101 x1000/uL (130-400) L D 01/05/18 06:40 MPV 10.5 fL (8.0-11.0) 01/05/18 06:40 Immature Gran % 0.5 01/05/18 06:40 Neutrophils % 91.3 01/05/18 06:40 Lymphocytes % 5.6 01/05/18 06:40 Monocytes % 2.4 01/05/18 06:40 Eosinophils % 0.1 01/05/18 06:40 Basophils % 0.1 01/05/18 06:40 Absolute Neutrophils 15.60 k/cumm (1.2-6.7) H 01/05/18 06:40 Absolute Lymphocytes 0.96 k/cumm (1.2-3.4) L 01/05/18 06:40 Absolute Monocytes 0.41 k/cumm (0.11-0.7) 01/05/18 06:40 Absolute Eosinophils 0.02 k/cumm (0.0-0.7) 01/05/18 06:40 Absolute Basophils 0.02 k/cumm (0.0-0.2) 01/05/18 06:40 Xanthochromia Absent 01/04/18 15:45 Sodium 138 mmol/L (136-145) 01/05/18 06:40 Potassium 4.2 mmol/L (3.5-5.1) D 01/05/18 06:40 Chloride 103 mmol/L (98-107) 01/05/18 06:40 Carbon Dioxide 22.9 mmol/L (21.0-32.0) 01/05/18 06:40 Anion Gap 12.1 mmol/L (3-11) H 01/05/18 06:40 BUN 50 mg/dL (7-18) H 01/05/18 06:40 Creatinine 3.86 mg/dL (0.55-1.02) H* 01/05/18 06:40 Estimated GFR/1.73 m2 12.16 (mL/min/1.73m2) 01/05/18 06:40 Glucose 142 mg/dL (70-100) H 01/05/18 06:40 Lactate 2.4 mmol/L (0.6-1.4) H 01/05/18 06:40 Calcium 8.3 mg/dL (8.5-10.1) L 01/05/18 06:40 Phosphorus 2.6 mg/dL (2.6-4.7) 01/05/18 06:40 Magnesium 3.2 mg/dL (1.8-2.4) H 01/04/18 05:40 Total Bilirubin 1.4 mg/dL (0.2-1.0) H 01/05/18 06:40 AST 2536 U/L (15-37) H 01/05/18 06:40 ALT 290 U/L (12-78) H 01/05/18 06:40 Alkaline Phosphatase 79 U/L (46-116) 01/05/18 06:40 Creatine Kinase > 8000 U/L (26-192) H 01/05/18 06:40 Troponin I 11.03 ng/mL (0.00-0.06) H 01/05/18 06:40 Total Protein 5.8 g/dL (6.4-8.2) L 01/05/18 06:40 Albumin 3.0 g/dL (3.4-5.0) L 01/05/18 06:40 Urine Color Yellow (Yellow) 01/04/18 06:30 Urine Clarity Cloudy 01/04/18 06:30 Urine pH 5.5 (5-8) 01/04/18 06:30 Ur Specific [place] >= 1.030 (1.005-1.025) H 01/04/18 06:30 Urine Protein 30 mg/dL (Negative) H 01/04/18 06:30 Urine Ketones Trace mg/dL (Negative) H 01/04/18 06:30 Urine Blood Negative (Negative) 01/04/18 06:30 Urine Nitrite Negative (Negative) 01/04/18 06:30 Urine Bilirubin Negative (Negative) 01/04/18 06:30 Urine Urobilinogen 0.2 EU/dL (Up TO 0.2) 01/04/18 06:30 Ur Leukocyte Esterase Trace (Negative) H 01/04/18 06:30 Urine RBC Negative (0-2) 01/04/18 06:30 Urine WBC 0-2 HPF (0-5) 01/04/18 06:30 Ur Epithelial Cells Moderate HPF (Negative) 01/04/18 06:30 Urine Crystals Moderate amorphous HPF (Negative) 01/04/18 06:30 Urine Bacteria Packed HPF (Negative) 01/04/18 06:30 Urine Casts Negative LPF (Negative) 01/04/18 05:56 Urine Mucus Trace (Negative) 01/04/18 06:30 Ur Culture Indicated? No/sq. contamination 01/04/18 06:30 Urine Glucose Negative mg/dL (Negative) 01/04/18 06:30 CSF Tube Number 4 01/04/18 15:45 CSF Color Colorless 01/04/18 15:45 CSF Clarity Clear 01/04/18 15:45 CSF WBC 7 /mm3 (0-5) H 01/04/18 15:45 CSF RBC 1 /mm3 (0-5) 01/04/18 15:45 CSF Neutrophils 0 % (0-2) 01/04/18 15:45 CSF Lymphocytes 64 % (63-99) 01/04/18 15:45 CSF Monos/Macrophages 36 % (3-37) 01/04/18 15:45 CSF Other Cells % (0-0) 01/04/18 15:45 CSF Diff Comment Performed 01/04/18 15:45 CSF Glucose 90 mg/dL (40-70) H 01/04/18 15:45 CSF Total Protein 40 mg/dL (15-45) 01/04/18 15:45 CSF [place] RNA Cancelled 01/04/18 15:45 Adenovirus Source Cancelled 01/04/18 15:45 Adenovirus (PCR) Cancelled 01/04/18 15:45 [place] Virus Source Cancelled 01/04/18 15:45 Resp Virus Spec Desc (see note) 01/04/18 15:45 Resp Virus Reprt Status (see note) 01/04/18 15:45 Resp Viral Panel Intrp (see note) 01/04/18 15:45 Fungal Specimen Source Cancelled 01/04/18 15:45 Fungal Culture Status Cancelled 01/04/18 15:45 Fungal Culture Final Cancelled 01/04/18 15:45 Disposition: Transferred to [facility] emergency room. The medicine team is planning to reevaluate her in that setting to decide on the level of care. Total time arranging transfer 84 minutes. [facility] medicine
--- NOTE | 2018-01-05 12:55 | PDOC.DCSUM_ITS ---
Date of Service: 01/05/18 Time of Service: 12:42 This is a 52-year-old woman who resides at [facility] and rehab due to loss of ADLs secondary to advanced Parkinson's syndrome. 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 She was in her usual state of health on 01/03/2018. At 4:30 AM on 01/04/2018 nursing noted that she was unresponsive and shaking uncontrollably. She was transferred to the [facility] emergency room. On arrival in the emergency room her temp was elevated and later reached a max of 41.4 C. She continued to shake uncontrollably and was not conscious. She received serial doses of IV lorazepam which settled down her extreme shaking. There was concern this may be status epilepticus so she was loaded with Keppra 2000 mg IV 1. Continuous EEG monitoring over the ensuing 24 hours did not show epileptiform activity. Her initial troponin was elevated at 3.7 and subsequently climbed to greater than 11. Serial EKG monitoring did not show significant ST to T changes and it was felt that this was a type II ACS. The patient remained encephalopathic and minimally responsive except to noxious stimuli. She was absent gag reflex but was not having any trouble with choking , she maintained O2 sats in the high 90s on room air. Her lung exam was clear. Her chest x-ray was negative. We had some thought of intubating her for protection but this never became necessary. Infectious disease: Her urine showed a few white cells but early urine culture shows mixed gram positive growth. She was initially given ceftriaxone in the emergency room and switched to Zosyn. Overnight 1 out of 2 blood cultures came back gram-positive cocci in clusters, vancomycin was added. An LP was performed that showed 7 white cells 64% lymphocytes. She was empirically started on acyclovir. Viral studies are pending. Her initial CPK was greater than 5000 and follow-up is greater than 8000. Her creatinine bumped from 2.2 to 3.86. Initially in the emergency room she produced about 200 cc of urine but overnight her urine output has dropped to 5 cc in the last 10 hours. Her lactate was 4.8 on admission and has come down to 2.4. A bedside echocardiogram showed a normal EF moderate to severe tricuspid regurg and moderate mitral regurgitation. There is a question of minimal hypokinesis of the anteroseptal wall. Images are transmitted to [facility]. Given the lack of urine output, worsening renal function, continued encephalopathy, and acute coronary syndrome she is being transferred to [facility] medicine service for further monitoring with or without inpatient hemodialysis. All Active Problems Encephalopathy acute (Acute) Pneumonia (Acute) Anemia (Acute) Acute kidney injury (Acute) Parkinsons disease (Acute) Sepsis syndrome (Acute) Secondary rhabdomyolysis (Acute) Non-ST elevation ND (NSTEMI) (Acute) Current Medications Acetaminophen (Tylenol) 650 mg TN Q4H PRN PRN Last Admin: 01/04/18 13:04 Dose: 650 mg Albuterol Sulfate (Proventil Updraft) 2.5 mg UPD Q2H PRN PRN Carbidopa/Levodopa (Sinemet-25/100 Tablet) 1 tab NG QID [facility] Last Admin: 01/05/18 12:10 Dose: 1 tab Dextrose (Insta-Glucose) 0 gm PO DIRECTED PRN Dextrose/Water () 0 gm IVP DIRECTED PRN Dimethicone/Zinc Oxide (Charla Protect Cream) 0 gm TP PRN PRN Last Admin: 01/04/18 16:17 Dose: 1 btl Heparin Sodium (Porcine) () 5,000 units SC Q12H [facility] Last Admin: 01/05/18 08:51 Dose: Not Given Acyclovir Sodium 500 mg/ (Sodium Chloride) 100 mls @ 100 mls/hr IVPB Q24H [facility] Last Admin: 01/04/18 18:41 Dose: 100 mls/hr Piperacillin/Tazobactam/Dextrose (Zosyn) 2.25 gm in 50 mls @ 100 mls/hr IV Q6H [facility] Last Admin: 01/05/18 11:39 Dose: 100 mls/hr Dextrose/Sodium Chloride (Dextrose 5%-0.45% Ns) 1,000 mls @ 150 mls/hr IV INFUSION [facility] Last Admin: 01/05/18 11:39 Dose: 150 mls/hr Vancomycin HCl 750 mg/ Sodium (Chloride) 250 mls @ 166.667 mls/hr IVPB Q36H [facility] IV Miscellaneous Supplies () 1 each IV DIRECTED [facility] Insulin Aspart (Novolog Flexpen) 0 units SC Q6H TAE PRN Reason: Protocol Last Admin: 08/17/18 11:04 Dose: Not Given Sodium Chloride (Saline Flush 10 Ml Syringe) 0 ml IVP PRN PRN Last Admin: 01/05/18 04:25 Dose: 40 ml HOME MEDS Baclofen 10 mg PO HS prn #30 tab-cap 07/25/16 Amantadine [Symmetrel] 200 mg PO BID 08/15/16 Acetaminophen [Tylenol] 650 mg PO Q4H PRN PRN tab-cap 11/15/16 FLUoxetine [PROzac] 20 mg PO DAILY tab-cap 11/15/16 Polyethylene Glycol 3350 [Miralax] 17 gm PO DAILY PRN 08/15/17 Ropinirole HCl [Requip] 0.25 mg PO TID 7 Days #20 tablet 08/15/17 Carbidopa/Levodopa [Rytary Er 48.75 Mg-195 Mg Cap] 1 each PO TID 08/30/17 Naproxen Sodium [Aleve] 220 mg PO Q12H tab-cap 12/25/17 Omeprazole 20 mg PO DAILY tab-cap 12/25/17 Propranolol HCl 40 mg PO DAILY 12/25/17 Tolterodine [Detrol] 2 mg PO BID tab-cap 12/25/17 Bisacodyl [Dulcolax Suppository] 1 supp TN PRN PRN 01/04/18 Calcium Carb *Tums* [Tums] 1 tab PO Q6H PRN 01/04/18 Docusate Sodium 100 mg PO BID PRN 01/04/18 Melatonin 3 mg PO HS PRN 01/04/18 Milk of Magnesia [Milk Of Magnesia] 30 mg PO HS PRN 01/04/18 Na Phos,M-B/Na Phos,Di-Ba [Fleet Enema] 1 btl TN PRN PRN 01/04/18 Allergies Allergy/AdvReac Type Severity Reaction Status Date / Time environmental Allergy Uncoded 01/04/18 06:56 Laboratory Results WBC 17.09 k/cumm (4.4-10.8) H D 01/05/18 06:40 RBC 3.63 m/cumm (4.00-5.20) L 01/05/18 06:40 Hgb 11.0 g/dL (12.0-15.5) L 01/05/18 06:40 Hct 33.6 % (36.0-46.0) L 01/05/18 06:40 MCV 92.6 fL (80-95) 01/05/18 06:40 MCH 30.3 pg (27.0-33.0) 01/05/18 06:40 MCHC 32.7 g/dL (32.0-36.0) 01/05/18 06:40 RDW 14.3 % (11.7-14.6) 01/05/18 06:40 Plt Count 101 x1000/uL (130-400) L D 01/05/18 06:40 MPV 10.5 fL (8.0-11.0) 01/05/18 06:40 Immature Gran % 0.5 01/05/18 06:40 Neutrophils % 91.3 01/05/18 06:40 Lymphocytes % 5.6 01/05/18 06:40 Monocytes % 2.4 01/05/18 06:40 Eosinophils % 0.1 01/05/18 06:40 Basophils % 0.1 01/05/18 06:40 Absolute Neutrophils 15.60 k/cumm (1.2-6.7) H 01/05/18 06:40 Absolute Lymphocytes 0.96 k/cumm (1.2-3.4) L 01/05/18 06:40 Absolute Monocytes 0.41 k/cumm (0.11-0.7) 01/05/18 06:40 Absolute Eosinophils 0.02 k/cumm (0.0-0.7) 01/05/18 06:40 Absolute Basophils 0.02 k/cumm (0.0-0.2) 01/05/18 06:40 Xanthochromia Absent 01/04/18 15:45 Sodium 138 mmol/L (136-145) 01/05/18 06:40 Potassium 4.2 mmol/L (3.5-5.1) D 01/05/18 06:40 Chloride 103 mmol/L (98-107) 01/05/18 06:40 Carbon Dioxide 22.9 mmol/L (21.0-32.0) 01/05/18 06:40 Anion Gap 12.1 mmol/L (3-11) H 01/05/18 06:40 BUN 50 mg/dL (7-18) H 01/05/18 06:40 Creatinine 3.86 mg/dL (0.55-1.02) H* 01/05/18 06:40 Estimated GFR/1.73 m2 12.16 (mL/min/1.73m2) 01/05/18 06:40 Glucose 142 mg/dL (70-100) H 01/05/18 06:40 Lactate 2.4 mmol/L (0.6-1.4) H 01/05/18 06:40 Calcium 8.3 mg/dL (8.5-10.1) L 01/05/18 06:40 Phosphorus 2.6 mg/dL (2.6-4.7) 01/05/18 06:40 Magnesium 3.2 mg/dL (1.8-2.4) H 01/04/18 05:40 Total Bilirubin 1.4 mg/dL (0.2-1.0) H 01/05/18 06:40 AST 2536 U/L (15-37) H 01/05/18 06:40 ALT 290 U/L (12-78) H 01/05/18 06:40 Alkaline Phosphatase 79 U/L (46-116) 01/05/18 06:40 Creatine Kinase > 8000 U/L (26-192) H 01/05/18 06:40 Troponin I 11.03 ng/mL (0.00-0.06) H 01/05/18 06:40 Total Protein 5.8 g/dL (6.4-8.2) L 01/05/18 06:40 Albumin 3.0 g/dL (3.4-5.0) L 01/05/18 06:40 Urine Color Yellow (Yellow) 01/04/18 06:30 Urine Clarity Cloudy 01/04/18 06:30 Urine pH 5.5 (5-8) 01/04/18 06:30 Ur Specific [place] >= 1.030 (1.005-1.025) H 01/04/18 06:30 Urine Protein 30 mg/dL (Negative) H 01/04/18 06:30 Urine Ketones Trace mg/dL (Negative) H 01/04/18 06:30 Urine Blood Negative (Negative) 01/04/18 06:30 Urine Nitrite Negative (Negative) 01/04/18 06:30 Urine Bilirubin Negative (Negative) 01/04/18 06:30 Urine Urobilinogen 0.2 EU/dL (Up TO 0.2) 01/04/18 06:30 Ur Leukocyte Esterase Trace (Negative) H 01/04/18 06:30 Urine RBC Negative (0-2) 01/04/18 06:30 Urine WBC 0-2 HPF (0-5) 01/04/18 06:30 Ur Epithelial Cells Moderate HPF (Negative) 01/04/18 06:30 Urine Crystals Moderate amorphous HPF (Negative) 01/04/18 06:30 Urine Bacteria Packed HPF (Negative) 01/04/18 06:30 Urine Casts Negative LPF (Negative) 01/04/18 05:56 Urine Mucus Trace (Negative) 01/04/18 06:30 Ur Culture Indicated? No/sq. contamination 01/04/18 06:30 Urine Glucose Negative mg/dL (Negative) 01/04/18 06:30 CSF Tube Number 4 01/04/18 15:45 CSF Color Colorless 01/04/18 15:45 CSF Clarity Clear 01/04/18 15:45 CSF WBC 7 /mm3 (0-5) H 01/04/18 15:45 CSF RBC 1 /mm3 (0-5) 01/04/18 15:45 CSF Neutrophils 0 % (0-2) 01/04/18 15:45 CSF Lymphocytes 64 % (63-99) 01/04/18 15:45 CSF Monos/Macrophages 36 % (3-37) 01/04/18 15:45 CSF Other Cells % (0-0) 01/04/18 15:45 CSF Diff Comment Performed 01/04/18 15:45 CSF Glucose 90 mg/dL (40-70) H 01/04/18 15:45 CSF Total Protein 40 mg/dL (15-45) 01/04/18 15:45 CSF [place] RNA Cancelled 01/04/18 15:45 Adenovirus Source Cancelled 01/04/18 15:45 Adenovirus (PCR) Cancelled 01/04/18 15:45 [place] Nile Virus Source Cancelled 01/04/18 15:45 Resp Virus Spec Desc (see note) 01/04/18 15:45 Resp Virus Reprt Status (see note) 01/04/18 15:45 Resp Viral Panel Intrp (see note) 01/04/18 15:45 Fungal Specimen Source Cancelled 08/16/18 15:45 Fungal Culture Status Cancelled 01/04/18 15:45 Fungal Culture Final Cancelled 01/04/18 15:45 Disposition: Transferred to [facility] emergency room. The medicine team is planning to reevaluate her in that setting to decide on the level of care. Total time arranging transfer 84 minutes. C[facility]
--- NOTE | 2018-01-05 13:43 | CHAPLAIN ---
I brought a prayer pachecowl to [facility]. She was not awake or alert at the time and there were no family members in the room. I will try to visit with family before Jaylyn is transferred to [facility].
== END 2018-01-05 14:33 | disposition short-term general hospital (02) | DRG 951 ==
LOC: ER 06-20 14:20 → ICU 06-20 14:20
PROVIDERS: Internal Medicine; Admitting Provider Family Medicine; Emergency Provider Emergency Medicine; PCP Nurse Practitioner Family; Visit Provider Family Medicine
DX: I21.4 Non-ST elevation (NSTEMI) myocardial infarction (principal); A41.1 Sepsis due to other specified staphylococcus; R65.21 Severe sepsis with septic shock; G93.41 Metabolic encephalopathy; N17.9 Acute kidney failure, unspecified; M62.82 Rhabdomyolysis; E16.2 Hypoglycemia, unspecified; G40.901 Epilepsy, unspecified, not intractable, with status epilepticus; I08.1 Rheumatic disorders of both mitral and tricuspid valves; G20 Parkinson's disease; M54.2 Cervicalgia; Q99.8 Other specified chromosome abnormalities; R13.10 Dysphagia, unspecified; I10 Essential (primary) hypertension; R40.2433 Glasgow coma scale score 3-8, at hospital admission; R69 Illness, unspecified
CPT/HCPCS: 36415; 84100; 80048 ×2; 82550 ×2; 80053; 83605 ×3; 84484 ×4; 85025; 89050; 89051; 84157; 82945; 87081; 87070; 87205; 87529; 93306 ×2; 76770; 93010 ×4; 95819; 99223; 99239; J0133; J0515; J1644 ×2; J2060 ×4; J1953 ×3; 36416; 51702; 82962; 87040; 87077; 87102; 87798; 93005; 95813; 95951; 96361; 96365; 96366; 96375; 99291; 71045; 81003; 81015; 82565; 83735; 83874; 84300; 87086; J0696; J3490

== ENCOUNTER 2018-01-30 14:32 | Outpatient (REF) | payer MEDICARE, MEDICAID, SELFPAY ==
[2018-01-30 16:35] LABS: Total Iron Binding Capacity 319 ug/dL (250-450)
[2018-01-30 16:40] LABS: Abs Immature Grans 0.02 k/cumm (0.0-0.09); Absolute Basophil Count 0.07 k/cumm (0.0-0.2); Absolute Eosinophil Count 0.24 k/cumm (0.0-0.7); Absolute Lymphocyte Count 1.52 k/cumm (1.2-3.4); Absolute Monocyte Count 0.75 k/cumm (0.11-0.7); Absolute Neutrophil Count 2.71 k/cumm (1.2-6.7); Basophils % 1.3; Eosinophils % 4.5; HCT 35.6 % (36.0-46.0); Immature Grans % 0.4; Lymphocytes % 28.6; Mean Corp. HGB Concentration 30.9 g/dL (32.0-36.0); Mean Corpuscular Hemoglobin 31.1 pg (27.0-33.0); Mean Corpuscular Volume 100.6 fL (80-95); Mean Platelet Volume 10.7 fL (8.0-11.0); Monocytes % 14.1; Neutrophils % 51.1; Platelet Count 379 x1000/uL (130-400); RBC 3.54 m/cumm (4.00-5.20); RBC Distribution Width 16.3 % (11.7-14.6); White Blood Cell Count 5.31 k/cumm (4.4-10.8)
[2018-01-30 17:19] LABS: ALT 27 U/L (12-78); AST 38 U/L (15-37); Albumin 3.5 g/dL (3.4-5.0); Alkaline Phosphatase 154 U/L (46-116); Anion Gap 3.5 mmol/L (3-11); BUN 18 mg/dL (7-18); Bilirubin, Total 0.7 mg/dL (0.2-1.0); CO2 30.5 mmol/L (21.0-32.0); CREATININE 1.51 mg/dL (0.55-1.02); Calcium 9.1 mg/dL (8.5-10.1); Chloride 99 mmol/L (98-107); Estimated GFR 35.91 (mL/min/1.73m2); Ferritin 630 ng/mL (8-388); Glucose 93 mg/dL (70-100); Potassium 5.4 mmol/L (3.5-5.1); Sodium 133 mmol/L (136-145); Total Protein 7.5 g/dL (6.4-8.2)
== END 2018-01-30 14:52 ==
LOC: LBN 14:32
PROVIDERS: Family Medicine; PCP Nurse Practitioner Family; Visit Provider Internal Medicine
DX: N17.9 Acute kidney failure, unspecified (principal); I10 Essential (primary) hypertension; K72.90 Hepatic failure, unspecified without coma; D64.9 Anemia, unspecified
CPT/HCPCS: 80053; 82728; 83550; 85025

== ENCOUNTER 2018-02-01 08:50 | Outpatient (REF) | payer MEDICARE, MEDICAID, SELFPAY ==
[2018-02-01 09:05] LABS: Anion Gap 7.2 mmol/L (3-11); BUN 15 mg/dL (7-18); CO2 31.8 mmol/L (21.0-32.0); CREATININE 1.23 mg/dL (0.55-1.02); Calcium 9.1 mg/dL (8.5-10.1); Chloride 99 mmol/L (98-107); Glucose 92 mg/dL (70-100); Potassium 4.2 mmol/L (3.5-5.1); Sodium 138 mmol/L (136-145)
== END 2018-02-01 09:10 ==
LOC: LBN 08:50
PROVIDERS: PCP Nurse Practitioner Family; Visit Provider Internal Medicine Infectious Disease
DX: D64.9 Anemia, unspecified (principal); N17.9 Acute kidney failure, unspecified; E78.5 Hyperlipidemia, unspecified; F32.9 Major depressive disorder, single episode, unspecified; I10 Essential (primary) hypertension
CPT/HCPCS: 80048

== ENCOUNTER 2018-02-05 20:28 | Outpatient (REF) | payer MEDICARE, MEDICAID, SELFPAY ==
[2018-02-05 21:32] LABS: Abs Immature Grans 0.01 k/cumm (0.0-0.09); Absolute Basophil Count 0.08 k/cumm (0.0-0.2); Absolute Eosinophil Count 0.09 k/cumm (0.0-0.7); Absolute Lymphocyte Count 1.36 k/cumm (1.2-3.4); Absolute Monocyte Count 0.61 k/cumm (0.11-0.7); Absolute Neutrophil Count 3.62 k/cumm (1.2-6.7); Basophils % 1.4; Eosinophils % 1.6; HCT 33.3 % (36.0-46.0); HGB 10.2 g/dL (12.0-15.5); Immature Grans % 0.2; Lymphocytes % 23.6; Mean Corp. HGB Concentration 30.6 g/dL (32.0-36.0); Mean Corpuscular Hemoglobin 30.4 pg (27.0-33.0); Mean Corpuscular Volume 99.1 fL (80-95); Mean Platelet Volume 10.8 fL (8.0-11.0); Monocytes % 10.6; Neutrophils % 62.6; Platelet Count 297 x1000/uL (130-400); RBC 3.36 m/cumm (4.00-5.20); RBC Distribution Width 15.2 % (11.7-14.6); White Blood Cell Count 5.77 k/cumm (4.4-10.8)
[2018-02-05 21:41] LABS: Iron 53 ug/dL (50-175); Total Iron Binding Capacity 322 ug/dL (250-450); Transferrin Sat 16 % (15-50)
[2018-02-05 21:55] LABS: ALT 19 U/L (12-78); AST 21 U/L (15-37); Albumin 3.3 g/dL (3.4-5.0); Alkaline Phosphatase 114 U/L (46-116); BUN 13 mg/dL (7-18); Bilirubin, Total 0.5 mg/dL (0.2-1.0); CREATININE 1.13 mg/dL (0.55-1.02); Calcium 8.8 mg/dL (8.5-10.1); Chloride 102 mmol/L (98-107); Estimated GFR 50.18 (mL/min/1.73m2); Ferritin 701 ng/mL (8-388); Glucose 96 mg/dL (70-100); Sodium 139 mmol/L (136-145)
[2018-02-07 09:28] LABS: Prealbumin 13 mg/dL (20-40)
== END 2018-02-05 20:48 ==
LOC: LBN 20:28
PROVIDERS: PCP Nurse Practitioner Family; Visit Provider Family Medicine
DX: D64.9 Anemia, unspecified (principal); N17.9 Acute kidney failure, unspecified; E78.5 Hyperlipidemia, unspecified; F32.9 Major depressive disorder, single episode, unspecified; I10 Essential (primary) hypertension; K72.90 Hepatic failure, unspecified without coma; R13.10 Dysphagia, unspecified; G20 Parkinson's disease; R63.4 Abnormal weight loss
CPT/HCPCS: 80053; 99202; 99308; 82728; 83540; 83550; 84134; 85025

== ENCOUNTER 2018-02-06 11:48 | Inpatient (IN) | payer MEDICARE, MEDICAID, SELFPAY ==
[2018-02-06] VITALS (72 sets, daily range): BP systolic 124–157; BP diastolic 55–96; PULSE 78–118; RESP 9–24; TEMP 37.4–39.2; O2SAT 95–99
[2018-02-06 12:43] LABS: Absolute Basophil Count 0.02 k/cumm (0.0-0.2); Absolute Lymphocyte Count 0.56 k/cumm (1.2-3.4); Absolute Monocyte Count 0.09 k/cumm (0.11-0.7); Absolute Neutrophil Count 3.56 k/cumm (1.2-6.7); Basophils % 0.5; HCT 31.1 % (36.0-46.0); HGB 9.9 g/dL (12.0-15.5); Lymphocytes % 13.2; Mean Corp. HGB Concentration 31.8 g/dL (32.0-36.0); Mean Corpuscular Volume 97.5 fL (80-95); Mean Platelet Volume 10.1 fL (8.0-11.0); Monocytes % 2.1; Neutrophils % 84.2; Platelet Count 255 x1000/uL (130-400); RBC 3.19 m/cumm (4.00-5.20); RBC Distribution Width 15.5 % (11.7-14.6); White Blood Cell Count 4.23 k/cumm (4.4-10.8)
[2018-02-06 12:55] LABS: Magnesium 1.8 mg/dL (1.8-2.4)
[2018-02-06 13:09] LABS: ALT 12 U/L (12-78); AST 17 U/L (15-37); Albumin 3.4 g/dL (3.4-5.0); Alkaline Phosphatase 111 U/L (46-116); Anion Gap 10.8 mmol/L (3-11); BUN 15 mg/dL (7-18); Bilirubin, Total 0.7 mg/dL (0.2-1.0); CO2 28.2 mmol/L (21.0-32.0); CREATININE 1.03 mg/dL (0.55-1.02); Calcium 9.1 mg/dL (8.5-10.1); Chloride 103 mmol/L (98-107); Estimated GFR 55.84 (mL/min/1.73m2); Glucose 120 mg/dL (70-100); Potassium 3.7 mmol/L (3.5-5.1); Sodium 142 mmol/L (136-145); TSH 0.11 uIU/mL (0.358-3.74); Total Protein 7.2 g/dL (6.4-8.2)
--- NOTE | 2018-02-06 13:53 | DSU.FORM ---
1155: report from Brissa Patiño RN
--- NOTE | 2018-02-06 14:00 | NUR.NOTE ---
1155: report from Brissa Patiño, RN 1210: mouth care given with suction swab, lip balm applied. Dr. Banegas aware. 1215: Labs drawn 124o: All from ICU spoken to on phone, report given and pt. to go to rm 220. Vitals: 38.7, 102, 18, 157/70, 93%. Pt. report neck pain, states she thinks it is positional. Pt. turned on R side with pillows. Pt. reports being more comfortable. Mouth care given. Pt. checked for incontinence. 1255: Pt. taken via stretcher to room 220. ICU nurses, All and Martine helped transfer pt. to bed. Pt. belongings, IV solution and chart given to nursing staff. BrotherCarlos Alberto, cruz pt in now in room 220.
[2018-02-06] MEDS: MAGNESIUM SULFATE 8.12 MEQ, MULTIVITAMIN 10 ML, THIAMINE 100 MG, FOLIC ACID 1 MG in Nor... 50 MG IV (14:35)
[2018-02-06] MEDS: Normal Saline Flush 10 ML SYR IV (14:35)
[2018-02-06] MEDS: Enoxaparin 30 MG/0.3 ML SYR SC (14:35)
[2018-02-06] MEDS: ACETAMINOPHEN 1,000 MG/100 ML BTL 400 MG IVPB ×2 (14:56→21:43)
[2018-02-06 14:57] LABS: Bilirubin Negative (Negative); Blood Trace-intact (Negative); Clarity Cloudy; Glucose Negative (Negative); Ketones 15 mg/dL (Negative); Leukocyte Esterase Large (Negative); Nitrite Negative (Negative); Specific Gravity >= 1.030 (1.005-1.025); Urobilinogen 0.2 EU/dL (Up TO 0.2); pH 5.5 (5-8)
[2018-02-06 15:06] LABS: Bacteria Many HPF (Negative); C & S Indicated? Yes; Casts Negative LPF (Negative); Crystals Negative HPF (Negative); Epithelial Cells Few HPF (Negative); Mucus Negative (Negative); RBC 0-2 (0-2); WBC >50 HPF (0-5)
--- NOTE | 2018-02-06 15:13 | W.PM.HP.N ---
Date of service: 02/06/18 Time of Service: 12:30 Assessment and Plan (1) Fever, unknown origin: Start date: 02/06/18 Start time: 10:30 Current visit: Yes Status: Acute Patient will be admitted for workup of fever of unknown origin. Preliminary studies suggest a urinary tract infection. Review of her medications for agents that may cause neuroleptic malignant syndrome has been performed and the causative agents have been held as needed. Several of her her medications can cause a neuroleptic malignant like syndrome if suddenly withdrawn; therefore, these agents have been restarted include her Sinemet, roperigoel,and amantadine, she has been started on Cipro for suspected urinary tract infection while culture is pending. Chest x-ray is clear. Blood cultures are pending. If further fever curve is trending down by tomorrow, cultures show UTI. We will plan to reschedule PEG tube placement. Further recommendations will be pending clinical diagnostic findings. History of Present Illness Chief Complaint: Fever of unknown origin Narrative: 52-year-old woman presenting to day surgery for outpatient procedure. She was scheduled to have percutaneous endoscopic gastrostomy tube placed due to dysphasia. On presentation to day surgery she was found to have an elevated temperature to 102.4. She has had in the recent past an episode of hyperpyrexia for which she was treated at [facility]. The exact etiology of the hyperpyrexia at that time was uncertain, but there was concern that this may have been from neuroleptic malignant syndrome or serotonin syndrome. Her gastrostomy tube placement has been canceled and she will be admitted for workup of their fever of unknown origin. Review of Systems Constitutional Denies chills, Reports excessive sweating, Reports fever(s), Denies headache(s), Reports malaise, Reports weakness and Reports weight loss Eyes Patient Denies blurry vision, Denies diplopia, Reports itchy eyes and Denies loss of vision ENT Reports dysphagia, Denies vertigo, Denies dizziness, Reports dry mouth, Denies headache(s), Denies hearing loss, Denies hoarseness, Denies epistaxis, Denies tinnitus and Denies sore throat Cardiovascular Denies chest pain, Denies rapid heart rate, Denies edema, Denies lightheadedness, Denies radiating jaw, neck or arm pain and Denies dyspnea Respiratory Denies chest congestion, Denies cough, Denies dyspnea and Denies wheezing Gastrointestinal Denies abdominal pain, Reports dysphagia, Denies heartburn, Denies nausea and Denies vomiting Genitourinary Denies abnormal vaginal bleeding, Denies urinary frequency, Denies pelvic pain, Reports urinary incontinence, Denies urinary hesitancy and Denies urinary urgency Musculoskeletal Denies myalgias, Denies arthralgias, Denies joint swelling and Denies limited range of motion Neurologic Denies behavioral changes, Denies confusion, Denies vertigo, Denies dizziness, Denies headache(s), Denies loss of vision, Denies convulsions, Denies seizure-like activity, Reports tremor(s) and Reports weakness Psychiatric Denies abnormal sleep pattern, Reports anxiety, Denies behavioral changes, Denies confusion, Reports depression, Denies irritability and Denies mood swings Endocrine Reports excessive sweating and Denies flushing Hematologic/Lymphatic Denies easy bleeding, Denies easy bruising and Denies lymphadenopathy Allergic/Immunologic Reports urticaria, Reports itchy eyes and Denies wheezing PFSH Family History Mother AMI (acute myocardial infarction) Father AMI (acute myocardial infarction) Medical History Dysphagia (Acute) Essential hypertension (Chronic) Hyperlipidemia (Chronic) Obesity (Chronic) Osteoarthritis (Chronic) Parkinson's disease (Chronic) Social History lives independently: No number of children: 2 number of grandchildren: 1 Smoking/Tobacco Use Status: Never alcohol intake: never substance use type: does not use Surgical History History of vaginal hysterectomy (Resolved) Meds Home Medications Medication Instructions Recorded Confirmed Type baclofen 10 mg PO HS prn #30 tab-cap 07/25/16 02/06/18 History amantadine HCl 200 mg PO BID 08/15/16 02/06/18 History acetaminophen [Tylenol] 650 mg PO Q4H PRN PRN tab-cap 11/15/16 02/06/18 History fluoxetine 20 mg PO DAILY tab-cap 11/15/16 02/06/18 History polyethylene glycol 3350 17 gm PO DAILY PRN 08/15/17 01/04/18 History carbidopa-levodopa [Rytary Er 1 ea PO TID 08/30/17 02/06/18 History 48.75 Mg-195 Mg Cap] naproxen sodium [Aleve] 220 mg PO Q12H tab-cap 12/25/17 History omeprazole 20 mg PO DAILY tab-cap 12/25/17 02/06/18 History propranolol 40 mg PO DAILY 12/25/17 01/04/18 History tolterodine [Detrol] 2 mg PO BID tab-cap 12/25/17 01/04/18 History bisacodyl 1 supp [place] PRN PRN 01/04/18 01/04/18 History calcium carbonate 1 tab PO Q6H PRN 01/04/18 01/04/18 History docusate sodium 100 mg PO BID PRN 01/04/18 02/06/18 History magnesium hydroxide [Milk Of 30 mg PO HS PRN 01/04/18 01/04/18 History Magnesia] melatonin 3 mg PO HS PRN 01/04/18 02/06/18 History sodium phosphates [Fleet Enema] 1 btl [place] PRN PRN 01/04/18 01/04/18 History ondansetron HCl [Zofran] 4 mg PO Q6H PRN PRN 02/06/18 02/06/18 History Allergies Allergy/AdvReac Type Severity Reaction Status Date / Time environmental Allergy Uncoded 02/06/18 10:04 Exam Const General: cooperative, no acute distress and anxious Nutritional Appearance: cachectic, malnourished and thin Orientation: alert, awake and oriented x3 HENMT Head: normocephalic and atraumatic Ears: hearing grossly normal bilaterally Face and sinus: normal facial exam Mouth: oral mucosa abnormal (dry, hernandez) Eyes General: appearance normal, both eyes and all related structures Sclera: sclerae normal Cornea: corneas normal Pupils: PERRL Neck Neck: normal visual inspection, trachea midline and supple Chest Chest: normal inspection of the chest Resp Effort & Inspection: normal respiratory effort, no audible wheezes and not labored Cardio Jugular venous pressure: no JVD Rate: regular rate Rhythm: regular rhythm Pulses: normal peripheral pulses GI Inspection: normal to inspection and non-distended Palpation: soft, no guarding and nontender Skin General skin exam: no rashes or lesions noted and erythema Lesions: no lesions Rashes: no rashes Hair: normal Neuro General: alert, awake and oriented x3 Cranial Nerves: CN's II-XI intact bilaterally Cognition: normal cognition Motor: tremor Extrem General: normal capillary refill and no clubbing, cyanosis or edema Results Imaging Chest x-ray: image reviewed (My preliminary evaluation shows no acute process) EKG: report reviewed (Sinus Rhythm) Labs : 02/06/18 12:20 02/06/18 12:20 Laboratory Results - last 24 hr 02/06/18 02/06/18 02/06/18 12:20 12:20 12:20 WBC 4.23 L RBC 3.19 L Hgb 9.9 L Hct 31.1 L MCV 97.5 H MCH 31.0 MCHC 31.8 L RDW 15.5 H Plt Count 255 MPV 10.1 Immature Gran % 0.0 Neutrophils % 84.2 Lymphocytes % 13.2 Monocytes % 2.1 Eosinophils % 0.0 Basophils % 0.5 Absolute Neutrophils 3.56 Absolute Lymphocytes 0.56 L Absolute Monocytes 0.09 L Absolute Eosinophils 0.00 Absolute Basophils 0.02 Sodium 142 Potassium 3.7 Chloride 103 Carbon Dioxide 28.2 Anion Gap 10.8 BUN 15 Creatinine 1.03 H Estimated GFR/1.73 m2 55.84 Glucose 120 H Calcium 9.1 Magnesium 1.8 Total Bilirubin 0.7 AST 17 ALT 12 Alkaline Phosphatase 111 Total Protein 7.2 Albumin 3.4 TSH 0.11 L Urine Color Urine Clarity Urine pH Ur Specific [place] Urine Protein Urine Ketones Urine Blood Urine Nitrite Urine Bilirubin Urine Urobilinogen Ur Leukocyte Esterase Urine RBC Urine WBC Ur Epithelial Cells Urine Crystals Urine Bacteria Urine Casts Urine Mucus Ur Culture Indicated? Urine Glucose 02/06/18 13:15 WBC RBC Hgb Hct MCV MCH MCHC RDW Plt Count MPV Immature Gran % Neutrophils % Lymphocytes % Monocytes % Eosinophils % Basophils % Absolute Neutrophils Absolute Lymphocytes Absolute Monocytes Absolute Eosinophils Absolute Basophils Sodium Potassium Chloride Carbon Dioxide Anion Gap BUN Creatinine Estimated GFR/1.73 m2 Glucose Calcium Magnesium Total Bilirubin AST ALT Alkaline Phosphatase Total Protein Albumin TSH Urine Color Yellow Urine Clarity Cloudy Urine pH 5.5 Ur Specific [place] >= 1.030 H Urine Protein 30 H Urine Ketones 15 H Urine Blood Trace-intact H Urine Nitrite Negative Urine Bilirubin Negative Urine Urobilinogen 0.2 Ur Leukocyte Esterase Large H Urine RBC 0-2 Urine WBC >50 Ur Epithelial Cells Few Urine Crystals Negative Urine Bacteria Many Urine Casts Negative Urine Mucus Negative Ur Culture Indicated? Yes Urine Glucose Negative
--- NOTE | 2018-02-06 15:30 | DI.RAD_ITS ---
SYMPTOMS/DIAGNOSIS: FEVER SEMI-ERECT PORTAL AP CHEST: The lungs are free of infiltrate. There is no pleural effusion. The cardiovascular structures are intact. SUMMARY: No evidence of acute cardiopulmonary disease.
[2018-02-06 16:28] LABS: Creatine Kinase 26 U/L (26-192); FREE T4 1.28 ng/dL (0.76-1.46)
--- NOTE | 2018-02-06 17:34 | MCONE_ITS ---
Date of service: 02/06/18 Time of Service: 17:33 Assessment and Plan (1) UTI (urinary tract infection): Current visit: Yes Status: Acute Patient has no evidence for acute renal insufficiency nor any hepatic insufficiency nor any rhabdomyolysis. Furthermore she demonstrates no acute mental status change and no rigidity. She has her usual parkinsonian tremors. She does however have evidence for an acute UTI but without evidence for sepsis. Her quick sofa score is 0. Given that her previous urinary cultures obtained from [facility] demonstrated Enterobacter cloaca UTI and Proteus mirabilis both which were sensitive to ciprofloxacin I think it is appropriate that she continue on IV ciprofloxacin for now pending the results of her urine and blood cultures. I will be glad to follow the patient along with you however I think if her blood cultures come back no growth and she has a simple uncomplicated UTI and she responds well to the ciprofloxacin then she could complete her antibiotic treatment back at the nursing facility where she resides. Once her infections cleared up and she could proceed with her PEG tube placement. (2) Parkinsons disease: Current visit: No Status: Chronic I would continue on all of her home parkinsonian medications including amantadine, carbidopa levodopa and ropinirole. Apparently our pharmacy does not carry her strength of carbidopa/levodopa but the nursing staff in the intensive care unit have called over to [facility] and requested that her medications be delivered to the hospital. 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 She was treated with broad-spectrum antibiotics including Zosyn and vancomycin after urine and blood cultures and LP were performed. These were all done at [facility] before transfer to [facility]. While at [facility] antibiotics were discontinued as a felt that there was no evidence for infection. Her chest x- ray showed no infiltrates and blood cultures from [facility] grown 1 out of 4 bottles showing staph hominis felt to be a contaminant although she had bacteriuria is felt to be asymptomatic and ultimately her fevers were attributed to either neuroleptic malignant syndrome from possible abrupt withdrawal one of her parkinsonism medicines or possibly serotonin syndrome. Both syndromes are characterized by altered mental status fevers, muscle rigidity. Initially they thought the offending agents could be the baclofen or due to fluoxetine were due to interruption of her carbidopa/levodopa. In either case of her blood cultures at [facility] came back negative and her CSF fluid showed no signs of meningitis. Ultimately her urine culture came back positive for greater than 50,000 colonies of Enterobacter cloaca GI and 1,000-9, 000 colonies of Proteus mirabilis but they elected not to treat this as her fevers resolved despite her antibiotics be withdrawn. Patient now presents to same day surgery for elective PEG tube to treat her for her dysphagia from her parkinsonism. However her procedure was canceled because of a fever of 39.2. She was admitted to the intensive care unit for further evaluation of a possible FUO. As part of of her workup she has had a chest x-ray that showed no pulmonary infiltrates. Labs today shows a normal white cell count of 4200 and a moderate anemia with a hemoglobin 9.9 g hematocrit 31%. Normal platelet count 2 55,000. Chemistries are fairly unremarkable she has normal LFTs and her BUN and creatinine are normal at 15 and 1.0. Her urinalysis is remarkable for elevated specific gravity greater than 1.030 with 30 mg/dL protein, 15 mg/dL ketones, trace of blood and large leukocyte esterase with greater than 50 white cells per high-powered field and many bacteria. Mccall catheter was placed is draining cloudy yellow urine. Urine and blood cultures have been sent and the patient has been started on ciprofloxacin empirically for UTI with possible sepsis. She has been kept on her usual dose of carbidopa/levodopa as well as her fluoxetine but her baclofen is been withheld and her ondansetron is also been withheld out of concerns for possible neuroleptic malignant syndrome. Of note her Prozac and baclofen were restarted at [facility] with no recurrent fevers. Review of Systems Constitutional Reports as per HPI and Denies headache(s) Eyes Patient Reports as per HPI ENT Reports dysphagia, Reports dry mouth, Denies headache(s), Denies nasal congestion, Denies odynophagia and Denies sinus pain Cardiovascular Reports system reviewed and no additional complaints, except as docu and Denies dyspnea Respiratory Denies change in phlegm color, Denies chest congestion, Denies cough, Denies excessive phlegm production and Denies dyspnea Gastrointestinal Denies abdominal pain, Reports dysphagia, Reports nausea, Denies odynophagia and Denies vomiting Genitourinary Denies hematuria, Reports nocturia, Reports urinary incontinence, Reports urinary hesitancy and Reports urinary urgency Musculoskeletal Reports muscle weakness Neurologic Denies headache(s) and Reports tremor(s) Endocrine Reports system reviewed and no additional complaints, except as docu Hematologic/Lymphatic Reports system reviewed and no additional complaints, except as docu Allergic/Immunologic Reports system reviewed and no additional complaints, except as docu PFSH Family History Mother AMI (acute myocardial infarction) Father AMI (acute myocardial infarction) Medical History Dysphagia (Acute) Essential hypertension (Chronic) Hyperlipidemia (Chronic) Obesity (Chronic) Osteoarthritis (Chronic) Parkinson's disease (Chronic) Social History lives independently: No number of children: 2 number of grandchildren: 1 Smoking/Tobacco Use Status: Never alcohol intake: never substance use type: does not use Surgical History History of vaginal hysterectomy (Resolved) Exam Const General: cooperative, frail appearing and ill appearing chronically Nutritional Appearance: cachectic and thin Orientation: alert, awake and oriented x3 HENMT Head: normal to inspection Mouth: oral mucosa abnormal other (dry) Teeth and gingiva: edentulous Neck Neck: normal visual inspection, full ROM, no lymphadenopathy and no meningeal signs Thyroid: thyroid normal Lymphatic: no lymphadenopathy noted Resp Effort & Inspection: normal respiratory effort and able to speak in complete sentences Auscultation: clear to auscultation bilaterally Percussion: percussion normal Cardio Jugular venous pressure: no JVD Palpation: normal PMI Rate: regular rate Rhythm: regular rhythm Heart Sounds: S1 normal, S2 normal and normal, physiologic split S2 Bruits: no abdominal aortic bruits and no carotid bruits Pulses: radial pulses present bilaterally, posterior tibial pulses present bilaterally and dorsalis pedis pulses present bilaterally GI Inspection: scaphoid Palpation: soft and no hepatosplenomegaly Percussion: normal to percussion Skin General skin exam: no rashes or lesions noted Neuro General: alert, awake, oriented x3 and moves all extremities Cranial Nerves: PERRL, EOM intact bilaterally and no nystagmus Cognition: normal cognition Speech: other (Dysphonia) Motor: tremor and No asterixis Sensory Exam: no sensory deficits noted Extrem General: normal to inspection, full ROM and no clubbing, cyanosis or edema Psych Mental Status: mental status grossly normal Speech and Movement: restless and slowed movement Mood: congruent mood Affect: normal affect Attitude: cooperative Thought Process: normal Thought Content: normal Results Labs : 02/06/18 12:20 02/06/18 12:20 Laboratory Results - last 24 hr 02/06/18 02/06/18 02/06/18 12:20 12:20 12:20 WBC 4.23 L RBC 3.19 L Hgb 9.9 L Hct 31.1 L MCV 97.5 H MCH 31.0 MCHC 31.8 L RDW 15.5 H Plt Count 255 MPV 10.1 Immature Gran % 0.0 Neutrophils % 84.2 Lymphocytes % 13.2 Monocytes % 2.1 Eosinophils % 0.0 Basophils % 0.5 Absolute Neutrophils 3.56 Absolute Lymphocytes 0.56 L Absolute Monocytes 0.09 L Absolute Eosinophils 0.00 Absolute Basophils 0.02 Sodium 142 Potassium 3.7 Chloride 103 Carbon Dioxide 28.2 Anion Gap 10.8 BUN 15 Creatinine 1.03 H Estimated GFR/1.73 m2 55.84 Glucose 120 H Calcium 9.1 Magnesium 1.8 Total Bilirubin 0.7 AST 17 ALT 12 Alkaline Phosphatase 111 Creatine Kinase Total Protein 7.2 Albumin 3.4 TSH 0.11 L Free T4 Urine Color Urine Clarity Urine pH Ur Specific [place] Urine Protein Urine Ketones Urine Blood Urine Nitrite Urine Bilirubin Urine Urobilinogen Ur Leukocyte Esterase Urine RBC Urine WBC Ur Epithelial Cells Urine Crystals Urine Bacteria Urine Casts Urine Mucus Ur Culture Indicated? Urine Glucose 02/06/18 02/06/18 12:20 13:15 WBC RBC Hgb Hct MCV MCH MCHC RDW Plt Count MPV Immature Gran % Neutrophils % Lymphocytes % Monocytes % Eosinophils % Basophils % Absolute Neutrophils Absolute Lymphocytes Absolute Monocytes Absolute Eosinophils Absolute Basophils Sodium Potassium Chloride Carbon Dioxide Anion Gap BUN Creatinine Estimated GFR/1.73 m2 Glucose Calcium Magnesium Total Bilirubin AST ALT Alkaline Phosphatase Creatine Kinase 26 Total Protein Albumin TSH Free T4 1.28 Urine Color Yellow Urine Clarity Cloudy Urine pH 5.5 Ur Specific [place] >= 1.030 H Urine Protein 30 H Urine Ketones 15 H Urine Blood Trace-intact H Urine Nitrite Negative Urine Bilirubin Negative Urine Urobilinogen 0.2 Ur Leukocyte Esterase Large H Urine RBC 0-2 Urine WBC >50 Ur Epithelial Cells Few Urine Crystals Negative Urine Bacteria Many Urine Casts Negative Urine Mucus Negative Ur Culture Indicated? Yes Urine Glucose Negative Imaging Chest x-ray: report reviewed Imaging Studies: Patient Name: FREDDY NICHOLS SUnit #: [id number]: ICU Ordering Provider: Tony Banegas DOAccount #: [id number]: ADM IN Primary Care Provider: Barbara Almaguer NPDate of Exam: 02/06/18ex: F Admission Date: 02/06/18 : 1965 Age: 52 Exam(s) a RAD:XR portable chest AP SYMPTOMS/DIAGNOSIS: FEVER SEMI-ERECT PORTAL AP CHEST: The lungs are free of infiltrate. There is no pleural effusion. The cardiovascular structures are intact. SUMMARY: No evidence of acute cardiopulmonary disease. Ordered By: Tony Banegas DO CC: Dictated By: Sarah Small M.D. 02/06/18 1534 Transcribed By: Esa Pennington 02/06/18 [id number]
[2018-02-06] MEDS: CIPROFLOXACIN 400 MG/200 ML BAG 200 MG IVPB (19:35)
[2018-02-06] MEDS: rOPINIRole 0.5 MG TAB 0.25 MG PO (19:37)
[2018-02-06] MEDS: POTASSIUM CHLORIDE/D5-0.45NACL 1,000 ML 50 MEQ IV (21:40)
[2018-02-07] VITALS (21 sets, daily range): BP systolic 105–152; BP diastolic 68–95; PULSE 72–99; RESP 13–20; TEMP 37.2–38; O2SAT 96–99
[2018-02-07] MEDS: ACETAMINOPHEN 1,000 MG/100 ML BTL 400 MG IVPB ×3 (06:50→22:10)
[2018-02-07 07:11] LABS: Absolute Basophil Count 0.03 k/cumm (0.0-0.2); Absolute Lymphocyte Count 0.86 k/cumm (1.2-3.4); Absolute Monocyte Count 0.43 k/cumm (0.11-0.7); Absolute Neutrophil Count 5.23 k/cumm (1.2-6.7); Basophils % 0.5; HCT 28.1 % (36.0-46.0); HGB 8.9 g/dL (12.0-15.5); Lymphocytes % 13.1; Mean Corp. HGB Concentration 31.7 g/dL (32.0-36.0); Mean Corpuscular Hemoglobin 31.1 pg (27.0-33.0); Mean Corpuscular Volume 98.3 fL (80-95); Mean Platelet Volume 9.6 fL (8.0-11.0); Monocytes % 6.6; Neutrophils % 79.8; Platelet Count 229 x1000/uL (130-400); RBC 2.86 m/cumm (4.00-5.20); RBC Distribution Width 15.9 % (11.7-14.6); White Blood Cell Count 6.55 k/cumm (4.4-10.8)
[2018-02-07 07:29] LABS: Magnesium 1.9 mg/dL (1.8-2.4)
[2018-02-07 07:33] LABS: ALT 15 U/L (12-78); AST 17 U/L (15-37); Albumin 3.1 g/dL (3.4-5.0); Alkaline Phosphatase 94 U/L (46-116); Anion Gap 9.6 mmol/L (3-11); BUN 16 mg/dL (7-18); Bilirubin, Total 0.6 mg/dL (0.2-1.0); CO2 26.4 mmol/L (21.0-32.0); CREATININE 1.01 mg/dL (0.55-1.02); Calcium 8.2 mg/dL (8.5-10.1); Chloride 107 mmol/L (98-107); Estimated GFR 57.12 (mL/min/1.73m2); Glucose 124 mg/dL (70-100); Potassium 3.2 mmol/L (3.5-5.1); Sodium 143 mmol/L (136-145); Total Protein 6.5 g/dL (6.4-8.2)
[2018-02-07] MEDS: CIPROFLOXACIN 400 MG/200 ML BAG 200 MG IVPB ×2 (08:30→19:40)
[2018-02-07] MEDS: rOPINIRole 0.5 MG TAB 0.25 MG PO ×3 (08:33→19:41)
--- NOTE | 2018-02-07 09:06 | W.PM.PROGNOT ---
Date of service: 02/07/18 Time of Service: 09:07 Assessment and Plan (1) UTI (urinary tract infection): Start date: 02/06/18 Current visit: Yes Status: Acute Neurologic?continue carbidopa/levodopa, amantadine, Requip. Will restart fluoxetine once Cipro has completed. Cardiac?will discontinue telemetry monitoring and she has been stable for 24 hours Respiratory?no evidence for pulmonary infection seen on x-ray no breathing issues. Gastrointestinal?awaiting G-tube placement, has restarted bowel regimen, PEG tube placement tentative Monday, 02/09 Genitourinary?evidence of urinary tract infection started on Cipro Renal?creatinine normal no evidence of renal insufficiency or acute kidney injury Hematology?DVT prophylaxis started Nutrition/lines/tubes?we will start TPN today, while awaiting G-tube placement, midline placed if blood cultures negative, will change to PICC line Infectious disease?fever curve trending down, started on Cipro for urinary tract infection awaiting preliminary blood cultures Disposition?will transfer to [facility] status Subjective Patient reports: flatus and fever (Low grade 38 over all temperature curve trending down); denies bowel movement, nausea and vomiting Interval history since last seen: Ms. So was stable overnight, no nausea or vomiting. Complains of being thirsty she was n.p.o. overnight. Exam Const General: cooperative, no acute distress and anxious Nutritional Appearance: malnourished Orientation: alert, awake and oriented x3 Limitations: physical limitations Resp Effort & Inspection: normal respiratory effort and not labored Cardio Jugular venous pressure: no JVD Rate: regular rate Rhythm: regular rhythm GI Inspection: normal to inspection and non-distended Palpation: soft and tender suprapubicly; with no rebound tenderness Skin General skin exam: no rashes or lesions noted and turgor normal Extrem General: normal capillary refill and no clubbing, cyanosis or edema Psych Mental Status: mental status grossly normal Attitude: cooperative Thought Process: normal Thought Content: normal Judgment: judgment good Objective Objective Clinical Data: Vital Signs - 24 hr 02/06/18 10:23 02/06/18 13:16 02/06/18 13:17 Temperature 39.2 C H 38.4 C H Pulse 86 118 H Pulse [Monitor] 103 H Respiratory Rate 18 15 24 Blood Pressure 148/83 H 150/94 H Blood Pressure [Left Arm] 140/71 Pulse Oximetry 95 98 02/06/18 13:40 02/06/18 13:50 02/06/18 14:00 Temperature Pulse Pulse [Monitor] Respiratory Rate 19 21 21 Blood Pressure Blood Pressure [Left Arm] Pulse Oximetry 98 98 98 02/06/18 14:10 02/06/18 14:16 02/06/18 14:20 Temperature Pulse 79 Pulse [Monitor] Respiratory Rate 17 17 15 Blood Pressure 135/71 Blood Pressure [Left Arm] Pulse Oximetry 02/06/18 14:30 02/06/18 14:31 02/06/18 14:40 Temperature Pulse 89 Pulse [Monitor] Respiratory Rate 15 13 13 Blood Pressure 124/87 Blood Pressure [Left Arm] Pulse Oximetry 96 02/06/18 14:46 02/06/18 14:50 02/06/18 15:00 Temperature Pulse 83 Pulse [Monitor] Respiratory Rate 16 14 15 Blood Pressure 132/94 H Blood Pressure [Left Arm] Pulse Oximetry 99 98 97 02/06/18 15:01 02/06/18 15:10 02/06/18 15:16 Temperature Pulse 89 89 Pulse [Monitor] Respiratory Rate 14 12 22 Blood Pressure 152/75 H 125/96 H Blood Pressure [Left Arm] Pulse Oximetry 97 98 97 02/06/18 15:20 02/06/18 15:30 02/06/18 15:31 Temperature Pulse 80 Pulse [Monitor] Respiratory Rate 12 14 13 Blood Pressure 152/77 H Blood Pressure [Left Arm] Pulse Oximetry 97 98 98 02/06/18 15:40 02/06/18 15:46 02/06/18 15:50 Temperature Pulse 85 Pulse [Monitor] Respiratory Rate 18 13 16 Blood Pressure 144/73 H Blood Pressure [Left Arm] Pulse Oximetry 97 99 99 02/06/18 16:00 02/06/18 16:01 02/06/18 16:05 Temperature 37.8 C H Pulse Pulse [Monitor] 80 Respiratory Rate 14 24 14 Blood Pressure 157/88 H Blood Pressure [Left Arm] Pulse Oximetry 98 98 99 02/06/18 16:10 02/06/18 16:20 02/06/18 16:30 Temperature Pulse Pulse [Monitor] Respiratory Rate 20 20 18 Blood Pressure Blood Pressure [Left Arm] Pulse Oximetry 98 96 02/06/18 16:40 02/06/18 16:50 02/06/18 17:00 Temperature Pulse Pulse [Monitor] Respiratory Rate 15 16 13 Blood Pressure Blood Pressure [Left Arm] Pulse Oximetry 98 99 02/06/18 17:10 02/06/18 17:20 02/06/18 17:30 Temperature Pulse Pulse [Monitor] Respiratory Rate 16 17 15 Blood Pressure Blood Pressure [Left Arm] Pulse Oximetry 98 97 02/06/18 17:40 02/06/18 17:50 02/06/18 18:00 Temperature Pulse Pulse [Monitor] Respiratory Rate 15 19 9 L Blood Pressure Blood Pressure [Left Arm] Pulse Oximetry 99 97 98 02/06/18 18:01 02/06/18 18:10 02/06/18 18:20 Temperature Pulse 84 Pulse [Monitor] Respiratory Rate 18 11 L 21 Blood Pressure 144/75 H Blood Pressure [Left Arm] Pulse Oximetry 99 98 97 02/06/18 18:30 02/06/18 18:40 02/06/18 18:50 Temperature Pulse Pulse [Monitor] Respiratory Rate 18 18 22 Blood Pressure Blood Pressure [Left Arm] Pulse Oximetry 99 02/06/18 19:00 02/06/18 19:10 02/06/18 19:20 Temperature Pulse Pulse [Monitor] Respiratory Rate 20 15 12 Blood Pressure Blood Pressure [Left Arm] Pulse Oximetry 98 99 99 02/06/18 19:30 02/06/18 19:40 02/06/18 19:50 Temperature Pulse Pulse [Monitor] Respiratory Rate 17 14 19 Blood Pressure Blood Pressure [Left Arm] Pulse Oximetry 99 99 02/06/18 20:00 02/06/18 20:01 02/06/18 20:10 Temperature Pulse 86 Pulse [Monitor] Respiratory Rate 17 19 12 Blood Pressure 139/85 Blood Pressure [Left Arm] Pulse Oximetry 02/06/18 20:20 02/06/18 20:30 02/06/18 20:40 Temperature Pulse Pulse [Monitor] Respiratory Rate 14 19 13 Blood Pressure Blood Pressure [Left Arm] Pulse Oximetry 98 98 98 02/06/18 20:41 02/06/18 20:50 02/06/18 21:00 Temperature 37.4 C 37.8 C H Pulse Pulse [Monitor] Respiratory Rate 15 17 Blood Pressure Blood Pressure [Left Arm] Pulse Oximetry 98 95 02/06/18 21:10 02/06/18 21:20 02/06/18 21:30 Temperature Pulse Pulse [Monitor] Respiratory Rate 17 18 19 Blood Pressure Blood Pressure [Left Arm] Pulse Oximetry 99 98 02/06/18 21:40 02/06/18 21:50 02/06/18 22:00 Temperature Pulse 82 Pulse [Monitor] Respiratory Rate 17 19 18 Blood Pressure 138/55 L Blood Pressure [Left Arm] Pulse Oximetry 99 98 97 02/06/18 22:01 02/06/18 22:10 02/06/18 22:20 Temperature Pulse Pulse [Monitor] Respiratory Rate 17 15 21 Blood Pressure Blood Pressure [Left Arm] Pulse Oximetry 97 98 97 02/06/18 22:30 02/06/18 22:40 02/06/18 23:05 Temperature 38 C H Pulse Pulse [Monitor] 87 Respiratory Rate 19 20 20 Blood Pressure Blood Pressure [Left Arm] Pulse Oximetry 96 97 97 02/07/18 00:00 02/07/18 02:01 02/07/18 03:38 Temperature Pulse 91 H 88 86 Pulse [Monitor] Respiratory Rate 20 17 17 Blood Pressure 150/72 H 128/95 H 145/73 H Blood Pressure [Left Arm] Pulse Oximetry 99 02/07/18 03:50 02/07/18 04:01 02/07/18 07:10 Temperature 38.0 C H Pulse 83 99 H Pulse [Monitor] Respiratory Rate 14 16 Blood Pressure 149/78 H 152/94 H Blood Pressure [Left Arm] Pulse Oximetry 96 02/07/18 07:12 02/07/18 08:00 02/07/18 08:30 Temperature 37.8 C H 37.8 C H Pulse 83 Pulse [Monitor] Respiratory Rate 13 Blood Pressure 144/84 H Blood Pressure [Left Arm] Pulse Oximetry 97 02/07/18 08:57 02/07/18 08:58 Temperature 38.0 C H 38.0 C H Pulse Pulse [Monitor] Respiratory Rate Blood Pressure Blood Pressure [Left Arm] Pulse Oximetry Intake & Output 02/05/18 02/06/18 02/07/18 02/08/18 06:59 06:59 06:59 06:59 Intake Total 683.333 / 683.333 601.667 / 601.667 Output Total 485 / 485 Balance 198.333 / 198.333 601.667 / 601.667 Weight 46.5 kg Laboratory Results - last 24 hr 02/06/18 02/06/18 02/06/18 12:20 12:20 12:20 WBC 4.23 L RBC 3.19 L Hgb 9.9 L Hct 31.1 L MCV 97.5 H MCH 31.0 MCHC 31.8 L RDW 15.5 H Plt Count 255 MPV 10.1 Immature Gran % 0.0 Neutrophils % 84.2 Lymphocytes % 13.2 Monocytes % 2.1 Eosinophils % 0.0 Basophils % 0.5 Absolute Neutrophils 3.56 Absolute Lymphocytes 0.56 L Absolute Monocytes 0.09 L Absolute Eosinophils 0.00 Absolute Basophils 0.02 Sodium 142 Potassium 3.7 Chloride 103 Carbon Dioxide 28.2 Anion Gap 10.8 BUN 15 Creatinine 1.03 H Estimated GFR/1.73 m2 55.84 Glucose 120 H Calcium 9.1 Magnesium 1.8 Total Bilirubin 0.7 AST 17 ALT 12 Alkaline Phosphatase 111 Creatine Kinase Total Protein 7.2 Albumin 3.4 TSH 0.11 L Free T4 Urine Color Urine Clarity Urine pH Ur Specific [place] Urine Protein Urine Ketones Urine Blood Urine Nitrite Urine Bilirubin Urine Urobilinogen Ur Leukocyte Esterase Urine RBC Urine WBC Ur Epithelial Cells Urine Crystals Urine Bacteria Urine Casts Urine Mucus Ur Culture Indicated? Urine Glucose 02/06/18 02/06/18 02/07/18 12:20 13:15 07:00 WBC RBC Hgb Hct MCV MCH MCHC RDW Plt Count MPV Immature Gran % Neutrophils % Lymphocytes % Monocytes % Eosinophils % Basophils % Absolute Neutrophils Absolute Lymphocytes Absolute Monocytes Absolute Eosinophils Absolute Basophils Sodium Cancelled Potassium Cancelled Chloride Cancelled Carbon Dioxide Cancelled Anion Gap Cancelled BUN Cancelled Creatinine Cancelled Estimated GFR/1.73 m2 Cancelled Glucose Cancelled Calcium Cancelled Magnesium 1.9 Total Bilirubin AST ALT Alkaline Phosphatase Creatine Kinase 26 Total Protein Albumin TSH Free T4 1.28 Urine Color Yellow Urine Clarity Cloudy Urine pH 5.5 Ur Specific [place] >= 1.030 H Urine Protein 30 H Urine Ketones 15 H Urine Blood Trace-intact H Urine Nitrite Negative Urine Bilirubin Negative Urine Urobilinogen 0.2 Ur Leukocyte Esterase Large H Urine RBC 0-2 Urine WBC >50 Ur Epithelial Cells Few Urine Crystals Negative Urine Bacteria Many Urine Casts Negative Urine Mucus Negative Ur Culture Indicated? Yes Urine Glucose Negative 02/07/18 02/07/18 07:00 07:00 WBC 6.55 D RBC 2.86 L Hgb 8.9 L Hct 28.1 L MCV 98.3 H MCH 31.1 MCHC 31.7 L RDW 15.9 H Plt Count 229 MPV 9.6 Immature Gran % 0.0 Neutrophils % 79.8 Lymphocytes % 13.1 Monocytes % 6.6 Eosinophils % 0.0 Basophils % 0.5 Absolute Neutrophils 5.23 Absolute Lymphocytes 0.86 L Absolute Monocytes 0.43 Absolute Eosinophils 0.00 Absolute Basophils 0.03 Sodium 143 Potassium 3.2 L Chloride 107 Carbon Dioxide 26.4 Anion Gap 9.6 BUN 16 Creatinine 1.01 Estimated GFR/1.73 m2 57.12 Glucose 124 H Calcium 8.2 L Magnesium Total Bilirubin 0.6 AST 17 ALT 15 Alkaline Phosphatase 94 Creatine Kinase Total Protein 6.5 Albumin 3.1 L TSH Free T4 Urine Color Urine Clarity Urine pH Ur Specific [place] Urine Protein Urine Ketones Urine Blood Urine Nitrite Urine Bilirubin Urine Urobilinogen Ur Leukocyte Esterase Urine RBC Urine WBC Ur Epithelial Cells Urine Crystals Urine Bacteria Urine Casts Urine Mucus Ur Culture Indicated? Urine Glucose
--- NOTE | 2018-02-07 09:10 | SATEXT_ITS ---
Assessment: Nutrition consult for TPN recommendations and for tube feed recommendations. Ms. So is 63.5 and 46.5 kg. Her BMI is 17.9 kg/m2 consistent with underweight. She has been unable to take adequate PO intake for several weeks according [facility] Her estimated energy needs are approximately 1400 kcal-1600 kcal/day (30-35 kcal/kg /day). Her estimated protein needs are 60g-70g/day (1.3g-1.5g/kg/day). Her estimated fluid needs are 1600 ml/day based on 1 ml/kcal provided. She is currently ordered for clear liquids. Nutritional Diagnosis: Inability to take adequate oral foods and fluids related to dysphagia. Intervention: When Ms. So is able to have a PEG tube, as always, enteral feeds would be the preferred means of nutrition support. Tube feeding recommendations as follows: Goal of Jevity 1.2 tricia @ 55 ml/hr x 24 hr/day. Start feeding @ 30 ml/hr x 4 hr. If residuals are less than 100 ml, increase feeding by 15 ml q four hours as tolerated until goal rate is met. She may require an additional 600 ml of free water to maintain adequate hydration. TPN recommendations: 2.0 liters of amino acids 4.25% in 10% dextrose over 24 hours daily. Fat emulsion 20% 250 ml over 8 hours daily. MD to order additives. Monitoring and Evaluation: 1. Will monitor weight, PO intake, and feeding interventions. 2. Will evaluate nutrition care plan ongoing and adjust as needed. Thank you for the consult.
--- NOTE | 2018-02-07 10:50 | PHARADMIT ---
Addendum entered by Valente Tiradoone SANTANA 02/15/18 12:36: Pharmacy Note Subjective Scheduled for Cardiac stress tests today. Objective VS-OK Pain:510 Wgt-56.8 kg H&H- 7.5/25.6 Lytes,SCr, Plts,WBC-OK, Had small BM Assessment Med to go through PEG tube (crushed), Using [facility] supplied Sinemet, Prozac re-started Plan Watch H&H, discharge pending stress test results Original Note: Addendum entered by Valente Francy Lovett SANTANA 02/14/18 14:21: Pharmacy Note Subjective TPN DC'd, Tube feedings @ 514 mL, On bowel regimen, PASSING FLATUS Objective VS-OK Na-136 K+3.8 Mag-1.4 H&H-7.6/25.0 Plts-252 FSBS-92 BG-109 Assessment On Lovenox Plan MPI Stress test ordered for tomorrow, MAY GO HOME TOMORROW. Original Note: Addendum entered by Valente Lovett III 02/12/18 13:17: Pharmacy Note Subjective Patient has been successfully extubated off ventilator. PEG is placed and MD wants to continue TPN until she is receiving sufficient nutrition through PEG feedings. Objective VS-OK Na-141 K+3.9 Mag-1.9 SCr-0.62 H&H-7.5/25.6 WBC-6.56 No BMs Assessment Patient is using our Sinemet tabs (she only has one cap of her own, I called ICU nurse to let them know) Plan DC TPN when receiving all her nutritional needs via PEG. Original Note: Addendum entered by Kassie Ríos 02/11/18 12:33: Pharmacy Note Subjective peg tube placement today Objective Tmax-38.5 overnight HR-91, other VS okay Cl-108 mag-1.6 SCr-0.78 Assessment -pts own Rytary ER could no be given via tube, Dr. Banegas wanted her to have some carbidopa-levodopa so changed to IR. Dosing is not interchangable; but IR dosing was approximated based on at equivalent doses of levodopa the bioavailability of rytary was approximately 70% relative to IR carbidopa-levodopa. Dr iNcole agreed with the approximated dosing. currently on carbidopa-levodopa 25/100 TID and Rytary is on hold until pt. can take PO medication again -TPN bag 2 was held this morning due to pt heading to the OR and in need of IV line, so I re-timed the TPN to start at 1600 (after surgery) starting with Bag [address] Banegas wanted the TPN to continue. Lipids were discontinued this morning for the same reason, due to restart tomorrow morning -cipro continues (day 5), urine culture was positive and is sensitive to ciprofloxacin; blood cultures from today are pending (initial blood cultures were negative) Plan watch for discontinuation of TPN and lipids once pt is able to take more food via pegtube watch for change back to ryatry once pt able to take PO meds again watch for blood culture results Original Note: Addendum entered by Gogo Campo 02/09/18 11:39: Pharmacy Note Subjective admitted for dysphagia, day 4 cipro for UTI, started TPN, PEG tube to be placed today Objective BC no growth 48 hours, FS 127, no labs today Assessment per MD note:Continue IV ciprofloxacin for 5-7 days. If her blood cultures turned positive she will need a total of 14 days of treatment., carbidopa/levodopa, amantadine, Requip for parkisonsons. MD plans to hold her fluoxetine until ciprofloxacin done Plan follow for agents that may cause neuroleptic malignant syndrome (those include baclofen, fluoxetine, and ondansetron) are being held. Other such as carbidopa-levodopa, ropinirole and amantadine may cause a neuroleptic malignant like syndrome if stopped abruptly so these meds were restarted Original Note: Addendum entered by Gogo Campo 02/08/18 11:50: Pharmacy Note Subjective admitted for dysphagia, day 3 cipro for UTI, started TPN yesterday Objective FS 111, bp 142/88, BC no growth 24 hours, UC final sens to cipro Assessment per MD note:Continue IV ciprofloxacin for 5-7 days. If her blood cultures turned positive she will need a total of 14 days of treatment., carbidopa/levodopa, amantadine, Requip for parkisonsons. MD plans to hold her fluoxetine until ciprofloxacin done Plan follow for agents that may cause neuroleptic malignant syndrome (those include baclofen, fluoxetine, and ondansetron) are being held. Other such as carbidopa-levodopa, ropinirole and amantadine may cause a neuroleptic malignant like syndrome if stopped abruptly so these meds were restarted Original Note: Admission Pharmacy Clinical Review dysphagia Code Status Full Code Current Weight 46.5 kg Renally Cleared and Narrow Therapeutic Index Meds Crcl ~46.70 mL/min current med okay QTc Value / Action Taken BP Control, Fever BP 144/84 Tmax 38.0 Electrolytes reviewed K+ 3.2 DVT Prophylaxis enoxaparin Opiate Usage / Scheduled Bowel Regimen Ordered no/prn Plt/SCr for Heparin / Enoxaparin plt 229 SCr 1.01 INR for Warfarin n/a H/H stable, WBC/Bands h/h 8.9/28.1 wbc 6.55 Antibiotic appropriateness ciprofloxacin Cultures and Sensitivities blood cultures and MRSA pending urine culture grew gram negative rods Surgical ABX d/c within 24 hr n/a DM control / Insulin Dosing BG 124 sliding scale insulin Q6H Heart Failure (Check EF%) (MARJORIE's, B-Block, Diuretics) propranolol(home med) IV to PO Switch n/a Home Meds Reviewed -calcium carbonate and milk of magnesia may diminish the therapeutic effects of bisacodyl -fluoxetine may increase the antiplatelet effect of naproxen -fluoxetine may inhibit the metabolism of propranolol and tolterodine (may increase risk of adverse effects) Home Meds Not Ordered baclofen (on hold), calcium carbonate (PRN), fluoxetine (on hold), milk of magnesia (PRN), naproxen, omeprazole, ondansetron (PRN), miralax, propranolol, fleet enema Comments TPN to start today review of her home meds for agents that may cause neuroleptic malignant syndrome (those include baclofen, fluoxetine, and ondansetron) are being held. Other such as carbidopa-levodopa, ropinirole and amantadine may cause a neuroleptic malignant like syndrome if stopped abruptly so these meds were restarted
--- NOTE | 2018-02-07 11:00 | PDOC.CMIN ---
- If Service Date Differs Date of service: 02/07/18 Time of Service: 11:00 Care Management Initial Assess REASON FOR HOSPITALIZATION:: Fever of unknown origin PAST MEDICAL HISTORY/PAST SURGICAL HISTORY:: Dysphagia, Essential hypertension, Hyperlipidemia, Obesity, Osteoarthritis, Parkinson's disease, H/O vaginal hysterectomy PREVIOUS FUNCTIONAL STATUS/SOCIAL/FAMILY SUPPORTS:: Ailyn is a resident at [facility]. At [facility] Ailyn is alert and oriented at baseline. Per [facility] Ailyn has been bed bound since her return from [facility], prior to she was able to ambulate with a walker. CURRENT FUNCTIONAL STATUS:: ailyn is a patient in the ICU at this time. She has transitioned to a Med/Surg level of care today, though remains in the ICU at this time. ADVANCE DIRECTIVES:: COLST on file Has patient been provided with information about the portal?: Yes Did the patient sign up for the portal?: No CODE STATUS:: Full Code INSURANCE COVERAGE / FINANCIAL ISSUES:: Medicare, Medicaid CURRENT HOME/COMMUNITY SERVICES/EQUIPMENT:: Currently Ailyn receives all services and equipment needs through [facility]. PRIMARY CARE PHYSICIAN:: Barbara Almaguer POTENTIAL DISCHARGE NEEDS:: Return to [facility]. ? w/c van vs [employer] w/c van transportation PATIENT/FAMILY EDUCATION NEEDS:: Review DC instructions, any limitations, and ongoing DC planning discussion. Review Ask Me Three ANTICIPATED BARRIERS TO DISCHARGE:: None identified at this time. TRANSPORTATION:: Via [facility] w/c van or [facility] w/c van. PLAN:: Ailyn will return to [facility] once medically cleared. She will transport either via [facility] w/c van or [employer] w/c van depending on availability.
--- NOTE | 2018-02-07 11:15 | INITIAL_ITS ---
- If Service Date Differs Date of service: 02/07/18 Time of Service: 11:00 Care Management Initial Assess REASON FOR HOSPITALIZATION:: Fever of unknown origin PAST MEDICAL HISTORY/PAST SURGICAL HISTORY:: Dysphagia, Essential hypertension, Hyperlipidemia, Obesity, Osteoarthritis, Parkinson's disease, H/O vaginal hysterectomy PREVIOUS FUNCTIONAL STATUS/SOCIAL/FAMILY SUPPORTS:: Ailyn is a resident at [facility]. At [facility] Ailyn is alert and oriented at baseline. Per [facility] Ailyn has been bed bound since her return from [facility], prior to she was able to ambulate with a walker. CURRENT FUNCTIONAL STATUS:: ailyn is a patient in the ICU at this time. She has transitioned to a Med/Surg level of care today, though remains in the ICU at this time. ADVANCE DIRECTIVES:: COLST on file Has patient been provided with information about the portal?: Yes Did the patient sign up for the portal?: No CODE STATUS:: Full Code INSURANCE COVERAGE / FINANCIAL ISSUES:: Medicare, Medicaid CURRENT HOME/COMMUNITY SERVICES/EQUIPMENT:: Currently Ailyn receives all services and equipment needs through [facility]. PRIMARY CARE PHYSICIAN:: Barbara Almaguer POTENTIAL DISCHARGE NEEDS:: Return to [facility]. ? w/c van vs [employer] w/c van transportation PATIENT/FAMILY EDUCATION NEEDS:: Review DC instructions, any limitations, and ongoing DC planning discussion. Review Ask Me Three ANTICIPATED BARRIERS TO DISCHARGE:: None identified at this time. TRANSPORTATION:: Via [facility] w/c van or [facility] w/c van. PLAN:: Ailyn will return to [facility] once medically cleared. She will transport either via [facility] w/c van or [employer] w/c van depending on availability.
[2018-02-07] MEDS: Enoxaparin 30 MG/0.3 ML SYR SC (14:05)
--- NOTE | 2018-02-07 15:41 | W.PM.PROGNOT ---
Date of service: 02/07/18 Time of Service: 12:00 Assessment and Plan (1) UTI (urinary tract infection): Current visit: Yes Status: Acute Continue IV ciprofloxacin for 5-7 days. If her blood cultures turned positive she will need a total of 14 days of treatment. (2) Parkinsons disease: Current visit: No Status: Chronic Continue all of her home antiparkinson medicines including carbidopa/levodopa, amantadine, Requip. Continue to hold her fluoxetine until ciprofloxacin since been completed (3) Dysphagia: Current visit: No Status: Acute Begin TPN for nutritional support pending placement of her PEG tube Subjective Interval history since last seen: Patient is feeling markedly better today. She denies any fevers or chills or rigors. She has had no nausea or vomiting. However nursing did note that she had a temp up to 38.0 this morning. She remains on IV ciprofloxacin for gram-negative anatoliy urinary tract infection. Preliminary report on her blood cultures is that there is been no growth at [address] Banegas's plans is to continue IV ciprofloxacin for now pending results of her urine culture and sensitivity. Once she is cleared her infection is plan is to proceed with her PEG tube placement. In the interim he is treating her nutritionally with TPN. As far as her parkinsonism he is continuing on all of her parkinsonian medications including carbidopa/levodopa, amantadine, Requip. For now her fluoxetine is on hold until her ciprofloxacin is been completed. Exam Const General: cooperative, frail appearing and ill appearing chronically Nutritional Appearance: cachectic and thin Orientation: alert, awake and oriented x3 Neck Neck: normal visual inspection, full ROM, no lymphadenopathy and no meningeal signs Thyroid: thyroid normal Lymphatic: no lymphadenopathy noted Resp Effort & Inspection: normal respiratory effort and able to speak in complete sentences Auscultation: clear to auscultation bilaterally Percussion: percussion normal Cardio Jugular venous pressure: no JVD Palpation: normal PMI Rate: regular rate Rhythm: regular rhythm Heart Sounds: S1 normal, S2 normal and normal, physiologic split S2 Bruits: no abdominal aortic bruits and no carotid bruits Pulses: radial pulses present bilaterally, posterior tibial pulses present bilaterally and dorsalis pedis pulses present bilaterally GI Inspection: scaphoid Palpation: soft and no hepatosplenomegaly Percussion: normal to percussion Skin General skin exam: no rashes or lesions noted Neuro General: alert, awake, oriented x3 and moves all extremities Cranial Nerves: PERRL, EOM intact bilaterally and no nystagmus Cognition: normal cognition Speech: other (Dysphonia) Motor: tremor and No asterixis Sensory Exam: no sensory deficits noted Extrem General: normal to inspection, full ROM and no clubbing, cyanosis or edema Psych Mental Status: mental status grossly normal Speech and Movement: restless and slowed movement Mood: congruent mood Affect: normal affect Attitude: cooperative Thought Process: normal Thought Content: normal Objective Objective Clinical Data: Abnormal lab results 02/07/18 02/07/18 Range/Units 07:00 07:00 RBC 2.86 L (4.00-5.20) m/cumm Hgb 8.9 L (12.0-15.5) g/dL Hct 28.1 L (36.0-46.0) % MCV 98.3 H (80-95) fL MCHC 31.7 L (32.0-36.0) g/dL RDW 15.9 H (11.7-14.6) % Absolute Lymphocytes 0.86 L (1.2-3.4) k/cumm Potassium 3.2 L (3.5-5.1) mmol/L Glucose 124 H (70-100) mg/dL Calcium 8.2 L (8.5-10.1) mg/dL Albumin 3.1 L (3.4-5.0) g/dL Vital Signs Temp 37.3 C 02/07/18 12:05 Pulse 76 02/07/18 12:01 Resp 20 02/07/18 12:01 BP 135/76 02/07/18 12:01 Pulse Ox 98 02/07/18 11:51 Intake & Output 02/06/18 02/07/18 02/07/18 23:59 11:59 23:59 Intake Total 683.333 / 502.791 5214.367 / 2062.367 944.167 / 944.167 Output Total 235 / 235 250 / 250 300 / 300 Balance 448.333 / 564.786 3738.367 / 1812.367 644.167 / 644.167 Weight 45.8 kg 46.5 kg Intake: IV 683.333 / 706.116 9954.367 / 1582.367 404.167 / 404.167 Oral 480 / 480 540 / 540 Output: Urine 235 / 235 250 / 250 300 / 300 Other: Urine Color Light Jeannie Yellow Straw Urine Appearance Cloudy Clear Clear Comment History of neurogenic dysfunction of the urinary bladder, urgency incontinence, JOSEPH. Mccall in place, draiing clear yellow liquid. Mccall in place, draiing clear yellow liquid. Laboratory Results WBC 6.55 k/cumm (4.4-10.8) D 02/07/18 07:00 RBC 2.86 m/cumm (4.00-5.20) L 02/07/18 07:00 Hgb 8.9 g/dL (12.0-15.5) L 02/07/18 07:00 Hct 28.1 % (36.0-46.0) L 02/07/18 07:00 MCV 98.3 fL (80-95) H 02/07/18 07:00 MCH 31.1 pg (27.0-33.0) 02/07/18 07:00 MCHC 31.7 g/dL (32.0-36.0) L 02/07/18 07:00 RDW 15.9 % (11.7-14.6) H 02/07/18 07:00 Plt Count 229 x1000/uL (130-400) 02/07/18 07:00 MPV 9.6 fL (8.0-11.0) 02/07/18 07:00 Immature Gran % 0.0 02/07/18 07:00 Neutrophils % 79.8 02/07/18 07:00 Lymphocytes % 13.1 02/07/18 07:00 Monocytes % 6.6 02/07/18 07:00 Eosinophils % 0.0 02/07/18 07:00 Basophils % 0.5 02/07/18 07:00 Absolute Neutrophils 5.23 k/cumm (1.2-6.7) 02/07/18 07:00 Absolute Lymphocytes 0.86 k/cumm (1.2-3.4) L 02/07/18 07:00 Absolute Monocytes 0.43 k/cumm (0.11-0.7) 02/07/18 07:00 Absolute Eosinophils 0.00 k/cumm (0.0-0.7) 09/19/18 07:00 Absolute Basophils 0.03 k/cumm (0.0-0.2) 02/07/18 07:00 Sodium 143 mmol/L (136-145) 02/07/18 07:00 Potassium 3.2 mmol/L (3.5-5.1) L 02/07/18 07:00 Chloride 107 mmol/L (98-107) 02/07/18 07:00 Carbon Dioxide 26.4 mmol/L (21.0-32.0) 02/07/18 07:00 Anion Gap 9.6 mmol/L (3-11) 02/07/18 07:00 BUN 16 mg/dL (7-18) 02/07/18 07:00 Creatinine 1.01 mg/dL (0.55-1.02) 02/07/18 07:00 Estimated GFR/1.73 m2 57.12 (mL/min/1.73m2) 02/07/18 07:00 Glucose 124 mg/dL (70-100) H 02/07/18 07:00 Calcium 8.2 mg/dL (8.5-10.1) L 02/07/18 07:00 Magnesium 1.9 mg/dL (1.8-2.4) 02/07/18 07:00 Total Bilirubin 0.6 mg/dL (0.2-1.0) 02/07/18 07:00 AST 17 U/L (15-37) 02/07/18 07:00 ALT 15 U/L (12-78) 02/07/18 07:00 Alkaline Phosphatase 94 U/L (46-116) 02/07/18 07:00 Creatine Kinase 26 U/L (26-192) 02/06/18 12:20 Total Protein 6.5 g/dL (6.4-8.2) 02/07/18 07:00 Albumin 3.1 g/dL (3.4-5.0) L 02/07/18 07:00 TSH 0.11 uIU/mL (0.358-3.74) L 02/06/18 12:20 Free T4 1.28 ng/dL (0.76-1.46) 02/06/18 12:20 Urine Color Yellow (Yellow) 02/06/18 13:15 Urine Clarity Cloudy 02/06/18 13:15 Urine pH 5.5 (5-8) 02/06/18 13:15 Ur Specific [place] >= 1.030 (1.005-1.025) H 02/06/18 13:15 Urine Protein 30 mg/dL (Negative) H 02/06/18 13:15 Urine Ketones 15 mg/dL (Negative) H 02/06/18 13:15 Urine Blood Trace-intact (Negative) H 02/06/18 13:15 Urine Nitrite Negative (Negative) 02/06/18 13:15 Urine Bilirubin Negative (Negative) 02/06/18 13:15 Urine Urobilinogen 0.2 EU/dL (Up TO 0.2) 02/06/18 13:15 Ur Leukocyte Esterase Large (Negative) H 02/06/18 13:15 Urine RBC 0-2 (0-2) 02/06/18 13:15 Urine WBC >50 HPF (0-5) 02/06/18 13:15 Ur Epithelial Cells Few HPF (Negative) 02/06/18 13:15 Urine Crystals Negative HPF (Negative) 02/06/18 13:15 Urine Bacteria Many HPF (Negative) 02/06/18 13:15 Urine Casts Negative LPF (Negative) 02/06/18 13:15 Urine Mucus Negative (Negative) 02/06/18 13:15 Ur Culture Indicated? Yes 02/06/18 13:15 Urine Glucose Negative mg/dL (Negative) 02/06/18 13:15
[2018-02-07] MEDS: POTASSIUM CHLORIDE/D5-0.45NACL 1,000 ML 50 MEQ IV (17:51)
[2018-02-07] MEDS: Insulin Aspart 300 UNITS/3 ML PEN SC (18:31)
[2018-02-08] VITALS (59 sets, daily range): BP systolic 74–149; BP diastolic 38–130; PULSE 70–190; RESP 12–21; TEMP 36.5–37.4; O2SAT 96–100
[2018-02-08] MEDS: ACETAMINOPHEN 1,000 MG/100 ML BTL 400 MG IVPB ×3 (06:46→21:49)
[2018-02-08 07:27] LABS: Abs Immature Grans 0.01 k/cumm (0.0-0.09); Absolute Basophil Count 0.03 k/cumm (0.0-0.2); Absolute Eosinophil Count 0.05 k/cumm (0.0-0.7); Absolute Lymphocyte Count 1.33 k/cumm (1.2-3.4); Absolute Monocyte Count 0.61 k/cumm (0.11-0.7); Absolute Neutrophil Count 3.57 k/cumm (1.2-6.7); Basophils % 0.5; Eosinophils % 0.9; HGB 8.6 g/dL (12.0-15.5); Immature Grans % 0.2; Lymphocytes % 23.8; Mean Corp. HGB Concentration 30.7 g/dL (32.0-36.0); Mean Corpuscular Hemoglobin 30.3 pg (27.0-33.0); Mean Corpuscular Volume 98.6 fL (80-95); Mean Platelet Volume 10.2 fL (8.0-11.0); Monocytes % 10.9; Neutrophils % 63.7; Platelet Count 175 x1000/uL (130-400); RBC 2.84 m/cumm (4.00-5.20); RBC Distribution Width 15.2 % (11.7-14.6)
[2018-02-08 07:38] LABS: INR 1.2 (1.0-3.5); PTT Activated 29.2 sec (21.0-31.4); Prothrombin Time 11.4 sec (9.3-10.8)
[2018-02-08 07:44] LABS: ALT 10 U/L (12-78); AST 12 U/L (15-37); Albumin 2.7 g/dL (3.4-5.0); Alkaline Phosphatase 79 U/L (46-116); Anion Gap 5.9 mmol/L (3-11); BUN 18 mg/dL (7-18); Bilirubin, Total 0.5 mg/dL (0.2-1.0); CO2 27.1 mmol/L (21.0-32.0); CREATININE 0.86 mg/dL (0.55-1.02); Chloride 102 mmol/L (98-107); Glucose 119 mg/dL (70-100); Magnesium 1.7 mg/dL (1.8-2.4); PHOSPHORUS 1.8 mg/dL (2.6-4.7); Potassium 3.3 mmol/L (3.5-5.1); Sodium 135 mmol/L (136-145); Total Protein 5.7 g/dL (6.4-8.2)
[2018-02-08 07:53] LABS: Calcium 7.9 mg/dL (8.5-10.1)
[2018-02-08] MEDS: rOPINIRole 0.5 MG TAB 0.25 MG PO ×3 (09:00→20:13)
[2018-02-08] MEDS: Normal Saline Flush 10 ML SYR IV (09:01)
[2018-02-08] MEDS: CIPROFLOXACIN 400 MG/200 ML BAG 200 MG IVPB ×2 (09:01→20:14)
--- NOTE | 2018-02-08 13:09 | PGE_ITS ---
Date of service: 02/08/18 Time of Service: 13:08 Assessment and Plan (1) UTI (urinary tract infection): Current visit: Yes Status: Acute Continue IV ciprofloxacin for 5-7 days. If her blood cultures turned positive she will need a total of 14 days of treatment. (2) Parkinsons disease: Current visit: Yes Status: Chronic Despite the patient being on all of her home antiparkinsonian medications for tremors seem to be worse. I will request a neurology consult from Dr. Vidya Mckoy to see if there is anything further we can do this patient (3) Dysphagia: Current visit: Yes Status: Acute Patient has been started on TPN for her malnutrition to support her perioperatively into her PEG tube is placed in mature enough to use. Medically I think she is stable she has no ischemic symptoms and has no signs of heart failure in spite of her valvular heart disease. I think she can proceed with her PEG tube procedure. However ANABELLA is requesting cardiology consultation. I put in the order for cardiology consult tomorrow morning. Subjective Interval history since last seen: When he has no acute complaints. She is remained afebrile and is currently being treated for Enterobacter UTI. Blood cultures have been no growth for over 24 hours. The Enterobacter is resistant to Ancef, Fortaz, ceftriaxone, Zosyn but is sensitive to ciprofloxacin, Levaquin , imipenem, Bactrim, tobramycin. She is currently being treated with ciprofloxacin 400 mg IV every 12 hours. She has been afebrile since noontime yesterday. Her last fever was 38? at 8:58 AM on February 07. presently the patient is receiving TPN for nutrition. Plan is for her to have her PEG tube tomorrow. SOLAR ENERGY INSTALLATION MANAGER came around today and is to evaluate the patient preoperatively and requested a cardiology consultation to do preop risk stratification because of the patient's valvular heart disease. Patient had an echocardiogram performed January 05, 2018 demonstrated normal left ventricular systolic function with an ejection fraction of 55-60% with possible mild hypokinesis of the anteroseptal myocardium. There is mild focal basal hypertrophy of the septum. Trivial aortic insufficiency. Mild mitral valve prolapse involving the posterior leaflet with moderate mitral regurgitation. Right ventricular cavity size and systolic function was normal. Patient has moderate tricuspid valve prolapse with moderate to severe tricuspid regurgitation as well as mild pulmonary hypertension with an RVSP of 46 mm. Based upon this the nurse raw cheese worker would feel more comfortable if a milk pasteurizer would evaluate the patient preoperatively. I see no contraindications to her having her PEG tube. Patient has a lot more tremors from her Parkinson's then with the physical therapist remembers from the last time she treated the patient. Patient is on all of her antiparkinsonian medications that she been on at the long-term including amantadine 200 mg twice a day, carbidopa-levodopa 48.75 mg-195 mg capsule 3 times a day, ropinirole 0.25 mg p.o. 3 times daily. Exam Const General: cooperative, no acute distress, well groomed and frail appearing Nutritional Appearance: cachectic and malnourished Orientation: alert, awake and oriented x3 Neck Neck: normal visual inspection, no lymphadenopathy, trachea midline and no JVD Resp Effort & Inspection: normal respiratory effort and able to speak in complete sentences Auscultation: clear to auscultation bilaterally Cardio Jugular venous pressure: no JVD Palpation: normal PMI Rate: regular rate Rhythm: regular rhythm Heart Sounds: S1 normal, S2 normal, normal, physiologic split S2, no gallops, no murmurs and no rubs GI Inspection: normal to inspection Palpation: soft and no hepatosplenomegaly Percussion: normal to percussion Auscultation: normal bowel sounds Neuro General: alert, awake, oriented x3, moves all extremities and other (increased tremors in both hands) Cognition: normal cognition Speech: speech normal Motor: tremor (both hands) Psych Appearance: grossly normal and well kempt Objective Objective Clinical Data: Abnormal lab results 02/08/18 02/08/18 02/08/18 Range/Units 06:40 06:40 06:40 RBC 2.84 L (4.00-5.20) m/cumm Hgb 8.6 L (12.0-15.5) g/dL Hct 28.0 L (36.0-46.0) % MCV 98.6 H (80-95) fL MCHC 30.7 L (32.0-36.0) g/dL RDW 15.2 H (11.7-14.6) % PT 11.4 H (9.3-10.8) sec Sodium 135 L (136-145) mmol/L Potassium 3.3 L (3.5-5.1) mmol/L Glucose 119 H (70-100) mg/dL Calcium 7.9 L (8.5-10.1) mg/dL Phosphorus 1.8 L (2.6-4.7) mg/dL Magnesium 1.7 L (1.8-2.4) mg/dL AST 12 L (15-37) U/L ALT 10 L (12-78) U/L Total Protein 5.7 L (6.4-8.2) g/dL Albumin 2.7 L (3.4-5.0) g/dL Vital Signs Temp 37.2 C 02/08/18 12:29 Pulse 92 H 02/08/18 12:29 Resp 18 02/08/18 09:30 BP 128/88 02/08/18 12:29 Pulse Ox 97 02/08/18 12:29 Intake & Output 02/07/18 02/08/18 02/08/18 23:59 11:59 23:59 Intake Total 1807.500 / 9328.400 4124 / 1751 Output Total 950 / 950 625 / 625 Balance 857.500 / 695.728 6346 / 1126 Weight 48.9 kg Intake: IV 1067.500 / 0978.410 2493 / 1131 Oral 740 / 740 620 / 620 Output: Urine 950 / 950 625 / 625 Other: Urine Color Yellow Yellow Urine Appearance Clear Clear Comment Mccall intact-drainng clear yellow urine. Mccall intact. SG 1.025, pH 6.5, mod leuks. Laboratory Results WBC 5.60 k/cumm (4.4-10.8) 02/08/18 06:40 RBC 2.84 m/cumm (4.00-5.20) L 02/08/18 06:40 Hgb 8.6 g/dL (12.0-15.5) L 02/08/18 06:40 Hct 28.0 % (36.0-46.0) L 02/08/18 06:40 MCV 98.6 fL (80-95) H 02/08/18 06:40 MCH 30.3 pg (27.0-33.0) 02/08/18 06:40 MCHC 30.7 g/dL (32.0-36.0) L 02/08/18 06:40 RDW 15.2 % (11.7-14.6) H 02/08/18 06:40 Plt Count 175 x1000/uL (130-400) 02/08/18 06:40 MPV 10.2 fL (8.0-11.0) 02/08/18 06:40 Immature Gran % 0.2 02/08/18 06:40 Neutrophils % 63.7 02/08/18 06:40 Lymphocytes % 23.8 02/08/18 06:40 Monocytes % 10.9 02/08/18 06:40 Eosinophils % 0.9 02/08/18 06:40 Basophils % 0.5 02/08/18 06:40 Absolute Neutrophils 3.57 k/cumm (1.2-6.7) 02/08/18 06:40 Absolute Lymphocytes 1.33 k/cumm (1.2-3.4) 02/08/18 06:40 Absolute Monocytes 0.61 k/cumm (0.11-0.7) 02/08/18 06:40 Absolute Eosinophils 0.05 k/cumm (0.0-0.7) 02/08/18 06:40 Absolute Basophils 0.03 k/cumm (0.0-0.2) 02/08/18 06:40 PT 11.4 sec (9.3-10.8) H 02/08/18 06:40 INR 1.2 (1.0-3.5) 02/08/18 06:40 APTT 29.2 sec (21.0-31.4) 02/08/18 06:40 Sodium 135 mmol/L (136-145) L 02/08/18 06:40 Potassium 3.3 mmol/L (3.5-5.1) L 02/08/18 06:40 Chloride 102 mmol/L (98-107) 02/08/18 06:40 Carbon Dioxide 27.1 mmol/L (21.0-32.0) 02/08/18 06:40 Anion Gap 5.9 mmol/L (3-11) 02/08/18 06:40 BUN 18 mg/dL (7-18) 02/08/18 06:40 Creatinine 0.86 mg/dL (0.55-1.02) 02/08/18 06:40 Estimated GFR/1.73 m2 >= 60.00 (mL/min/1.73m2) 02/08/18 06:40 Glucose 119 mg/dL (70-100) H 02/08/18 06:40 Calcium 7.9 mg/dL (8.5-10.1) L 02/08/18 06:40 Phosphorus 1.8 mg/dL (2.6-4.7) L 02/08/18 06:40 Magnesium 1.7 mg/dL (1.8-2.4) L 02/08/18 06:40 Total Bilirubin 0.5 mg/dL (0.2-1.0) 02/08/18 06:40 AST 12 U/L (15-37) L 02/08/18 06:40 ALT 10 U/L (12-78) L 02/08/18 06:40 Alkaline Phosphatase 79 U/L (46-116) 02/08/18 06:40 Creatine Kinase 26 U/L (26-192) 02/06/18 12:20 Total Protein 5.7 g/dL (6.4-8.2) L 02/08/18 06:40 Albumin 2.7 g/dL (3.4-5.0) L 02/08/18 06:40 TSH 0.11 uIU/mL (0.358-3.74) L 02/06/18 12:20 Free T4 1.28 ng/dL (0.76-1.46) 02/06/18 12:20 Urine Color Yellow (Yellow) 02/06/18 13:15 Urine Clarity Cloudy 02/06/18 13:15 Urine pH 5.5 (5-8) 02/06/18 13:15 Ur Specific [place] >= 1.030 (1.005-1.025) H 02/06/18 13:15 Urine Protein 30 mg/dL (Negative) H 02/06/18 13:15 Urine Ketones 15 mg/dL (Negative) H 02/06/18 13:15 Urine Blood Trace-intact (Negative) H 02/06/18 13:15 Urine Nitrite Negative (Negative) 02/06/18 13:15 Urine Bilirubin Negative (Negative) 02/06/18 13:15 Urine Urobilinogen 0.2 EU/dL (Up TO 0.2) 02/06/18 13:15 Ur Leukocyte Esterase Large (Negative) H 02/06/18 13:15 Urine RBC 0-2 (0-2) 02/06/18 13:15 Urine WBC >50 HPF (0-5) 02/06/18 13:15 Ur Epithelial Cells Few HPF (Negative) 02/06/18 13:15 Urine Crystals Negative HPF (Negative) 02/06/18 13:15 Urine Bacteria Many HPF (Negative) 02/06/18 13:15 Urine Casts Negative LPF (Negative) 02/06/18 13:15 Urine Mucus Negative (Negative) 02/06/18 13:15 Ur Culture Indicated? Yes 02/06/18 13:15 Urine Glucose Negative mg/dL (Negative) 02/06/18 13:15
--- NOTE | 2018-02-08 13:19 | PDOC.CMPRO ---
Care Management Progress Note S/O-Met with Jaylyn in ICU today. She was alert and oriented. She will be having PEG tube placed tomorrow. No change to overall plan. A-52 yo woman admitted with dysphagia. P-return to [facility] when medically appropriate, either via w/c van from [facility] or RCT van.
--- NOTE | 2018-02-08 13:48 | PGE_ITS ---
Documented by User: HITESH Ponce 02/08/18 13:53 Assessment and Plan (1) UTI (urinary tract infection): Current visit: No Status: Resolved Tolerating IV ATB , no GI complaints. Day #2; Continue IV ciprofloxacin for 5-7 days. If her blood cultures turned positive she will need a total of 14 days of treatment. (2) Parkinsons disease: Current visit: No Status: Chronic Continue all of her home antiparkinson medicines including carbidopa/levodopa, amantadine, Requip. Continue to hold her fluoxetine until ciprofloxacin since been completed (3) Dysphagia: Current visit: No Status: Chronic TPN started last night, continue with TPN. No fevers since yesterday morning. Tentative PEG tube placement on Monday (02/09/18). Subjective Patient reports: no bowel movement and bowel movement; denies diarrhea, vomiting and fever Interval history since last seen: Patient reports feeling well today, states that she was nausea's last night however no nausea or vomiting today. Denies fevers or chills. She has not had a BM since 02/05/18. Denies abdominal pain Exam Const General: cooperative and comfortable Orientation: alert and awake Resp Effort & Inspection: normal respiratory effort and no cough Auscultation: clear to auscultation bilaterally Cardio Rate: regular rate Rhythm: regular rhythm Heart Sounds: S1 normal and S2 normal GI Inspection: non-distended Palpation: soft and nontender Objective Objective Clinical Data: Abnormal lab results 02/08/18 02/08/18 02/08/18 Range/Units 06:40 06:40 06:40 RBC 2.84 L (4.00-5.20) m/cumm Hgb 8.6 L (12.0-15.5) g/dL Hct 28.0 L (36.0-46.0) % MCV 98.6 H (80-95) fL MCHC 30.7 L (32.0-36.0) g/dL RDW 15.2 H (11.7-14.6) % PT 11.4 H (9.3-10.8) sec Sodium 135 L (136-145) mmol/L Potassium 3.3 L (3.5-5.1) mmol/L Glucose 119 H (70-100) mg/dL Calcium 7.9 L (8.5-10.1) mg/dL Phosphorus 1.8 L (2.6-4.7) mg/dL Magnesium 1.7 L (1.8-2.4) mg/dL AST 12 L (15-37) U/L ALT 10 L (12-78) U/L Total Protein 5.7 L (6.4-8.2) g/dL Albumin 2.7 L (3.4-5.0) g/dL Vital Signs Temp 37.2 C 02/08/18 12:29 Pulse 92 H 02/08/18 12:29 Resp 18 02/08/18 09:30 BP 128/88 02/08/18 12:29 Pulse Ox 97 02/08/18 12:29 Intake & Output 02/07/18 02/08/18 02/08/18 23:59 11:59 23:59 Intake Total 1807.500 / 8257.008 3154 / 1751 Output Total 950 / 950 625 / 625 Balance 857.500 / 854.369 1614 / 1126 Weight 48.9 kg Intake: IV 1067.500 / 3836.889 4067 / 1131 Oral 740 / 740 620 / 620 Output: Urine 950 / 950 625 / 625 Other: Urine Color Yellow Yellow Urine Appearance Clear Clear Comment Mccall intact-drainng clear yellow urine. Mccall intact. SG 1.025, pH 6.5, mod leuks. Laboratory Results WBC 5.60 k/cumm (4.4-10.8) 02/08/18 06:40 RBC 2.84 m/cumm (4.00-5.20) L 02/08/18 06:40 Hgb 8.6 g/dL (12.0-15.5) L 02/08/18 06:40 Hct 28.0 % (36.0-46.0) L 02/08/18 06:40 MCV 98.6 fL (80-95) H 02/08/18 06:40 MCH 30.3 pg (27.0-33.0) 02/08/18 06:40 MCHC 30.7 g/dL (32.0-36.0) L 02/08/18 06:40 RDW 15.2 % (11.7-14.6) H 02/08/18 06:40 Plt Count 175 x1000/uL (130-400) 02/08/18 06:40 MPV 10.2 fL (8.0-11.0) 02/08/18 06:40 Immature Gran % 0.2 02/08/18 06:40 Neutrophils % 63.7 02/08/18 06:40 Lymphocytes % 23.8 02/08/18 06:40 Monocytes % 10.9 02/08/18 06:40 Eosinophils % 0.9 02/08/18 06:40 Basophils % 0.5 02/08/18 06:40 Absolute Neutrophils 3.57 k/cumm (1.2-6.7) 02/08/18 06:40 Absolute Lymphocytes 1.33 k/cumm (1.2-3.4) 02/08/18 06:40 Absolute Monocytes 0.61 k/cumm (0.11-0.7) 02/08/18 06:40 Absolute Eosinophils 0.05 k/cumm (0.0-0.7) 02/08/18 06:40 Absolute Basophils 0.03 k/cumm (0.0-0.2) 02/08/18 06:40 PT 11.4 sec (9.3-10.8) H 02/08/18 06:40 INR 1.2 (1.0-3.5) 02/08/18 06:40 APTT 29.2 sec (21.0-31.4) 02/08/18 06:40 Sodium 135 mmol/L (136-145) L 02/08/18 06:40 Potassium 3.3 mmol/L (3.5-5.1) L 02/08/18 06:40 Chloride 102 mmol/L (98-107) 02/08/18 06:40 Carbon Dioxide 27.1 mmol/L (21.0-32.0) 02/08/18 06:40 Anion Gap 5.9 mmol/L (3-11) 02/08/18 06:40 BUN 18 mg/dL (7-18) 02/08/18 06:40 Creatinine 0.86 mg/dL (0.55-1.02) 02/08/18 06:40 Estimated GFR/1.73 m2 >= 60.00 (mL/min/1.73m2) 02/08/18 06:40 Glucose 119 mg/dL (70-100) H 02/08/18 06:40 Calcium 7.9 mg/dL (8.5-10.1) L 02/08/18 06:40 Phosphorus 1.8 mg/dL (2.6-4.7) L 02/08/18 06:40 Magnesium 1.7 mg/dL (1.8-2.4) L 02/08/18 06:40 Total Bilirubin 0.5 mg/dL (0.2-1.0) 02/08/18 06:40 AST 12 U/L (15-37) L 02/08/18 06:40 ALT 10 U/L (12-78) L 02/08/18 06:40 Alkaline Phosphatase 79 U/L (46-116) 02/08/18 06:40 Creatine Kinase 26 U/L (26-192) 02/06/18 12:20 Total Protein 5.7 g/dL (6.4-8.2) L 02/08/18 06:40 Albumin 2.7 g/dL (3.4-5.0) L 02/08/18 06:40 TSH 0.11 uIU/mL (0.358-3.74) L 02/06/18 12:20 Free T4 1.28 ng/dL (0.76-1.46) 02/06/18 12:20 Urine Color Yellow (Yellow) 02/06/18 13:15 Urine Clarity Cloudy 02/06/18 13:15 Urine pH 5.5 (5-8) 02/06/18 13:15 Ur Specific [place] >= 1.030 (1.005-1.025) H 02/06/18 13:15 Urine Protein 30 mg/dL (Negative) H 02/06/18 13:15 Urine Ketones 15 mg/dL (Negative) H 02/06/18 13:15 Urine Blood Trace-intact (Negative) H 02/06/18 13:15 Urine Nitrite Negative (Negative) 02/06/18 13:15 Urine Bilirubin Negative (Negative) 02/06/18 13:15 Urine Urobilinogen 0.2 EU/dL (Up TO 0.2) 02/06/18 13:15 Ur Leukocyte Esterase Large (Negative) H 02/06/18 13:15 Urine RBC 0-2 (0-2) 02/06/18 13:15 Urine WBC >50 HPF (0-5) 02/06/18 13:15 Ur Epithelial Cells Few HPF (Negative) 02/06/18 13:15 Urine Crystals Negative HPF (Negative) 02/06/18 13:15 Urine Bacteria Many HPF (Negative) 02/06/18 13:15 Urine Casts Negative LPF (Negative) 02/06/18 13:15 Urine Mucus Negative (Negative) 02/06/18 13:15 Ur Culture Indicated? Yes 02/06/18 13:15 Urine Glucose Negative mg/dL (Negative) 02/06/18 13:15 Documented by User: Una Poe MD 06/18/18 14:13
--- NOTE | 2018-02-08 14:04 | PT.INIE ---
Date of service: 02/08/18 Time of Service: 11:46 PT Notes Date: 02/08/18 Referring Doctor: Alex Kong PT Orders: PT Consult evaluate and treat for generalized deconditioning and weakness from Parkinsonism and malnutrition Precautions: Fall Precautions, aspiration precautions PATIENT PROFILE/ADMITTING DIAGNOSIS: Pt is a 52yr old female admitted with dysphagia PMHX: Parkinson's disease, dyskinesia, dysphagia, chromosome II abnormality, urinary incontinence. osteoarthritis, carpal tunnel syndrome, depression, hypertension, hyperlipidemia, insomnia, hysterectomy, tonsillectomy, adenoidectomy Social History/Home Situation: Resident of [facility], since recent stay at [facility] and return to rehab facility, pt reports she has been primarily bed bound, she reports the last time she walked with her 4WW was December. Pt is dependent with ADLS Equipment owned/DME: 4WW SUBJECTIVE: Pt lying in bed, agreeable to PT consult. Asking for her pink neck pillow and her sneakers, they are not in room, RN called to rehab facility to have them sent over. Pt reports she has not walked since December. OBJECTIVE: General Observation: IV bilateral UE's, marsk catheter Mental Status: A& O x 3 Pain: no c/o pain ROM: RUE AROM shoulder flexion 60, elbow -5 extension and wrist WNL, resting position pt flexing elbows and wrists LUE AROM shoulder flexion 80, elbow - 5 extension and wrist WNL, resting position pt flexing elbows and wrists RLE AROM hip flexion 90, knee WNL, ankle PROM WNL. pt maintaining bilateral plantar flexion with flexed toes in resting position, supination left ankle. Able to get to neutral DF and resting alignment with stretching. Tight achilles tendons bilaterally LLE AROM hip flexion 90, knee WNL, ankle PROM WNL. pt maintaining bilateral plantar flexion with flexed toes in resting position. Able to get to neutral DF and resting alignment with stretching. Tight achilles tendons bilaterally STRENGTH: RUE shoulder flexion 1/5, bicep 3/5, motors and controls tester 5/5 LUE shoulder flexion 1/5, bicep 3/5, motors and controls tester 5/5 RLE hip flexion 2/5, quad 2/5, ankle DF/PF 2/5 LLE hip flexion 2/5, quad 2/5, ankle DF/PF 2/5 BED MOBILITY/TRANSFERS: Supine-sit: HOB 40 degrees maxA for hips to edge of bed Sit-stand: maxAx1 with STEDY lift, max A for positioning legs and feet in lift, assist for reaching to STEDY bar to get to standing Bed-chair: maxA with STEDY Stand-sit: maxA GAIT: maxA with STEDY lift standing at bedside for 2min. Pt with external rotation and supination left foot, unable to weight bear on left foot in neutral position, flexed hips, knees and trunk in standing, pt unable to stand erect due to weakness and tightness. Pt transferred via STEDY for chair for lunch. BALANCE: Static sitting normal Dynamic Sitting good Static Standing poor Dynamic Standing poor SPECIAL TESTS: Mobility Limitations Standardized Measure [facility] -PAC ?6 clicks? Basic Mobility Inpatient Short Form: raw score: 7 standardized score: 26.42 CMS score: 92.36% CMS modifier: CM INFORMED CONSENT/EDUCATION: Pt instructed in purpose of PT Consult and plan of care ASSESSMENT: Pt is a 52yr old female admitted with dysphagia in setting of Parkinson's disease, dyskinesia, dysphagia, chromosome II abnormality, urinary incontinence. osteoarthritis, carpal tunnel syndrome. Patient presents with clinical signs and symptoms consistent with Parkinson's disease as demonstrated by the following impairment level findings: upper and lower body tremors, decreased ROM all joints due to tightness and immobility, weakness in upper and lower extremities, decreased strength and mobility with bed transfers and standing transfers requiring maxA and STEDY lift to mobilize, decreased static and dynamic standing balance putting her at high risk for falls. At this time patient is non-ambulatory and has difficulty with standing duration of only 2minutes. Pt demonstrates significant decline in ROM, strength and functional mobility since last admission in Sep, 2017, at that time she was transferring and walking with 4ww, currently she is dependent for transfers, is unable to perform gait. Pt will benefit from skilled therapy intervention to improve her ROM, flexibility, strength, transfer mobility, standing tolerance and duration. Anticipate return to [facility] when medically cleared for continued therapy. Impairments are contributing to the following functional limitations: AMPAC score CMS score: 92.36% Patient is assessed as a * high [id number] complexity based on the following: History: respiratory failure after aspirating on food and acute kidney injury in setting of Parkinson's disease, dyskinesia, dysphagia, chromosome II abnormality, urinary incontinence. osteoarthritis, carpal tunnel syndrome Examination: dynamic standing balance putting her at risk for falls, Parkinson's gait pattern with narrow base of support, flexed joints and posture, decreased balance with turning and positioning. Presentation: evolving Decision Making: AMPAC score CMS score: 92.36% GOALS Goals x1 week 1. Supine-sit: minAx1 2. Sit-Supine minAx1 3. Sit-Stand: maxAx1 with FWW 4. Stand-sit minAx1 5. Bed-chair maxAx1 with FWW 6. Chair-bed maxax1 with FWW 7. Gait: MaxAx1 with FWW 10ftx2 PLAN OF CARE/TREATMENT PLAN: 1-2x/day, 7 days/ week x 1 week Plan of care has been reviewed with the [employer] H[employer]IES TEACHER providing the service under Physical therapy direction. Initiate physical therapy intervention for strengthening, bed mobility, transfers, gait, stairs, balance training, use of assistive device. DISCHARGE RECOMMENDATIONS Return to [facility] TREATMENT TIME/MINUTES/CODES 30min IE 11:45 G Codes in the area mobility of walking and moving around: current status [id number] CM projected status GP [id number]__[id number] Discharge status (if discharging) GP [id number]__[id number] _based on AMPAC score CMS score: 92.36% Blanca Akhtar PT
--- NOTE | 2018-02-08 14:26 | IN_ITS ---
Date of service: 02/08/18 Time of Service: 11:46 PT Notes Date: 02/08/18 Referring Doctor: Alex Kong PT Orders: PT Consult evaluate and treat for generalized deconditioning and weakness from Parkinsonism and malnutrition Precautions: Fall Precautions, aspiration precautions PATIENT PROFILE/ADMITTING DIAGNOSIS: Pt is a 52yr old female admitted with dysphagia PMHX: Parkinson's disease, dyskinesia, dysphagia, chromosome II abnormality, urinary incontinence. osteoarthritis, carpal tunnel syndrome, depression, hypertension, hyperlipidemia, insomnia, hysterectomy, tonsillectomy, adenoidectomy Social History/Home Situation: Resident of [facility], [place] [facility] facility, pt reports she has been primarily bed bound, she reports the last time she walked with her 4WW was December. Pt is dependent with ADLS Equipment owned/DME: 4WW SUBJECTIVE: Pt lying in bed, agreeable to PT consult. Asking for her pink neck pillow and her sneakers, they are not in room, RN called to rehab facility to have them sent over. Pt reports she has not walked since December. OBJECTIVE: General Observation: IV bilateral UE's, marks catheter Mental Status: A& O x 3 Pain: no c/o pain ROM: RUE AROM shoulder flexion 60, elbow -5 extension and wrist WNL, resting position pt flexing elbows and wrists LUE AROM shoulder flexion 80, elbow - 5 extension and wrist WNL, resting position pt flexing elbows and wrists RLE AROM hip flexion 90, knee WNL, ankle PROM WNL. pt maintaining bilateral plantar flexion with flexed toes in resting position, supination left ankle. Able to get to neutral DF and resting alignment with stretching. Tight achilles tendons bilaterally LLE AROM hip flexion 90, knee WNL, ankle PROM WNL. pt maintaining bilateral plantar flexion with flexed toes in resting position. Able to get to neutral DF and resting alignment with stretching. Tight achilles tendons bilaterally STRENGTH: RUE shoulder flexion 1/5, bicep 3/5, access manager 5/5 LUE shoulder flexion 1/5, bicep 3/5, access manager 5/5 RLE hip flexion 2/5, quad 2/5, ankle DF/PF 2/5 LLE hip flexion 2/5, quad 2/5, ankle DF/PF 2/5 BED MOBILITY/TRANSFERS: Supine-sit: HOB 40 degrees maxA for hips to edge of bed Sit-stand: maxAx1 with STEDY lift, max A for positioning legs and feet in lift , assist for reaching to STEDY bar to get to standing Bed-chair: maxA with STEDY Stand-sit: maxA GAIT: maxA with STEDY lift standing at bedside for 2min. Pt with external rotation and supination left foot, unable to weight bear on left foot in neutral position, flexed hips, knees and trunk in standing, pt unable to stand erect due to weakness and tightness. Pt transferred via STEDY for chair for lunch. BALANCE: Static sitting normal Dynamic Sitting good Static Standing poor Dynamic Standing poor SPECIAL TESTS: Mobility Limitations Standardized Measure [facility] -PAC ?6 clicks? Basic Mobility Inpatient Short Form: raw score: 7 standardized score: 26.42 CMS score: 92.36% CMS modifier: CM INFORMED CONSENT/EDUCATION: Pt instructed in purpose of PT Consult and plan of care ASSESSMENT: Pt is a 52yr old female admitted with dysphagia in setting of Parkinson's disease, dyskinesia, dysphagia, chromosome II abnormality, urinary incontinence. osteoarthritis, carpal tunnel syndrome. Patient presents with clinical signs and symptoms consistent with Parkinson's disease as demonstrated by the following impairment level findings: upper and lower body tremors, decreased ROM all joints due to tightness and immobility, weakness in upper and lower extremities, decreased strength and mobility with bed transfers and standing transfers requiring maxA and STEDY lift to mobilize, decreased static and dynamic standing balance putting her at high risk for falls. At this time patient is non-ambulatory and has difficulty with standing duration of only 2minutes. Pt demonstrates significant decline in ROM, strength and functional mobility since last admission in Sep, 2017, at that time she was transferring and walking with 4ww, currently she is dependent for transfers, is unable to perform gait. Pt will benefit from skilled therapy intervention to improve her ROM, flexibility, strength, transfer mobility, standing tolerance and duration. Anticipate return to [facility] when medically cleared for continued therapy. Impairments are contributing to the following functional limitations: AMPAC score CMS score: 92.36% Patient is assessed as a * high [id number] complexity based on the following: History: respiratory failure after aspirating on food and acute kidney injury in setting of Parkinson's disease, dyskinesia, dysphagia, chromosome II abnormality, urinary incontinence. osteoarthritis, carpal tunnel syndrome Examination: dynamic standing balance putting her at risk for falls, Parkinson' s gait pattern with narrow base of support, flexed joints and posture, decreased balance with turning and positioning. Presentation: evolving Decision Making: AMPAC score CMS score: 92.36% GOALS Goals x1 week 1. Supine-sit: minAx1 2. Sit-Supine minAx1 3. Sit-Stand: maxAx1 with FWW 4. Stand-sit minAx1 5. Bed-chair maxAx1 with FWW 6. Chair-bed maxax1 with FWW 7. Gait: MaxAx1 with FWW 10ftx2 PLAN OF CARE/TREATMENT PLAN: 1-2x/day, 7 days/ week x 1 week Plan of care has been reviewed with the MANAGER [employer]IVACY providing the service under Physical therapy direction. Initiate physical therapy intervention for strengthening, bed mobility, transfers, gait, stairs, balance training, use of assistive device. DISCHARGE RECOMMENDATIONS Return to [facility] TREATMENT TIME/MINUTES/CODES 30min IE 11:45 G Codes in the area mobility of walking and moving around: current status [id number] CM projected status GP [id number]__[id number]_. Discharge status (if discharging) GP [id number]__[id number] _based on AMPAC score CMS score: 92.36% Blanca Akhtar PT
--- NOTE | 2018-02-08 14:36 | PTTR_ITS ---
Date of service: 02/08/18 Time of Service: 13:00 PT Notes Inpatient Physical Therapy Treatment Note Date: 02/08/18 PRECAUTIONS: Fall precautions, Aspiration precautions SUBJECTIVE: Pt up in chair through lunch visiting with her brother, asking to get back to bed. OBJECTIVE: General observation: IV bilateral UE's, marks catheter PAIN: no c/o pain BED MOBILITY/TRANSFERS: Sit-stand: maxAx1 with STEDY lift, max A for positioning legs and feet in lift , assist for reaching to STEDY bar to get to standing Chair-bed: maxA with STEDY Stand-sit: maxA Sit-supine: HOB flat, maxA for trunk and LE's into bed GAIT: maxA with STEDY lift standing 1min focusing on left ankle position and extending bilateral hips and knees. Pt returned to bed. BALANCE: Static sitting normal Dynamic Sitting good Static Standing poor Dynamic Standing poor THEREX: Stretching performed to bilateral ankles/achilles tendons, hip abductors, shoulder flexors, elbow extensors to decreased tightness 30 second holds bilateral UE and LE's for each stretch Bilateral feet positioned in dorsiflexion with 2 pillows at bottom of bed, to maintain neutral foot position and decrease plantar flexion contracture. RN notified to position patient with foot pillows in bed. Pt would benefit from resting PRAFO devices to prevent plantar flexion contractures in supine. ASSESSMENT: Pt wtith severe weakness, tightness and decreased mobility due to Parkinsonism and recent immobility since December. Pt is a high risk for skin breakdown, flexion contractures, progressive weakness. Will begin therapy intervention to progress sitting duration, standing strength and flexibliity to allow for standing and progress to gait mobility. Anticipate patient will have a slow recovery and will require extensive therapy to return to prior level of function. PLAN: Progress strengthening Progress transfers Progress standing duration in STEDY TREATMENT CODE/TIME: 23min TAx2 1300 Blanca Fishman PT
[2018-02-08] MEDS: Enoxaparin 30 MG/0.3 ML SYR SC (15:04)
[2018-02-08] MEDS: POTASSIUM CHLORIDE/D5-0.45NACL 1,000 ML 50 MEQ IV (17:03)
[2018-02-09] VITALS (55 sets, daily range): BP systolic 80–152; BP diastolic 32–111; PULSE 72–215; RESP 10–26; TEMP 36–37.2; O2SAT 92–100
[2018-02-09] MEDS: ACETAMINOPHEN 1,000 MG/100 ML BTL 400 MG IVPB ×2 (06:14→21:38)
--- NOTE | 2018-02-09 08:54 | PT.INNT ---
Date of service: 02/09/18 Time of Service: 08:54 PT Notes PHYSICAL THERAPY NOTE 02/09/18 HOLD PT session this am, pt to receive PEG tube placement. Resume after PEG in place. Blanca Akhtar PT
[2018-02-09] MEDS: rOPINIRole 0.5 MG TAB 0.25 MG PO (09:21)
[2018-02-09] MEDS: CIPROFLOXACIN 400 MG/200 ML BAG 200 MG IVPB ×2 (09:24→20:33)
--- NOTE | 2018-02-09 10:42 | W.PM.PROGNOT ---
Date of service: 02/09/18 Time of Service: 10:43 Assessment and Plan (1) UTI (urinary tract infection): Current visit: Yes Status: Acute Continue ciprofloxacin for a total 7 days. For now she will remain on parenteral ciprofloxacin until her PEG tube has been placed and is mature enough to use. (2) Parkinsons disease: Current visit: Yes Status: Chronic Patient is been kept on all of her home antiparkinsonian medications. I did not have a chance to place a call out to Dr. Vidya Mckoy yesterday to discuss the patient's case. I did put an order for request for neurology consultation unfortunately the patient did not get seen yesterday. I think the patient can have follow-up with her neurologist as an outpatient after her PEG tube has been placed in her antiparkinsonian medications can be adjusted as an outpatient. (3) Dysphagia: Current visit: Yes Status: Acute Patient continues on TPN while she awaits her PEG tube placement later today Subjective Interval history since last seen: Patient states she feels better. She denies any shortness of breath or chest pain and no abdominal pain or nausea or vomiting. She has been tolerating clear liquids. She is receiving TPN. She has been receiving ciprofloxacin intravenously for UTI. Her blood cultures show no growth. Urine culture grew Enterobacter cloacae complex growing 100,000 colonies. I think once she gets her PEG tube placed and its functional she could complete her antibiotic treatment with enteral form of ciprofloxacin and return to the assisted. Exam Narrative Exam Narrative: Patient sitting up in her chair conversing with her . She is in no distress. She does have increased tremulousness from her parkinsonism but this is unchanged since her admission. She is alert oriented person place time circumstance. She is able to carry on complete conversations and express her wants and needs. Lungs are clear to auscultation without wheezes rales or rhonchi. Heart is regular without murmur rub or gallop Abdomen is soft and nontender with normoactive bowel sounds with no palpable masses no organomegaly. Lower extremities without peripheral cyanosis or edema Neurologically she has no focal motor or sensory deficits other than her tremors. Objective Objective Clinical Data: Vital Signs Temp 37.1 C 02/08/18 23:05 Pulse 215 H 02/09/18 00:32 Resp 18 02/08/18 23:05 BP 138/76 02/09/18 00:32 Pulse Ox 97 02/09/18 07:30 Intake & Output 02/08/18 02/08/18 02/09/18 11:59 23:59 11:59 Intake Total 1751 / 1751 3836.868 / 3836.868 619.167 / 619.167 Output Total 625 / 625 3550 / 3550 Balance 1126 / 1126 286.868 / 286.868 619.167 / 619.167 Weight 48.9 kg Intake: IV 1131 / 1131 3476.868 / 3476.868 619.167 / 619.167 Oral 620 / 620 360 / 360 Output: Urine 625 / 625 3550 / 3550 Other: Urine Color Yellow Pale Yellow Urine Appearance Clear Clear Urine Odor None Comment Marks intact. SG 1.025, pH 6.5, mod leuks. marks intact Stool Size Small Small Stool Characteristics Mucoid Voiding Methods Indwelling Catheter Laboratory Results WBC 5.60 k/cumm (4.4-10.8) 02/08/18 06:40 RBC 2.84 m/cumm (4.00-5.20) L 02/08/18 06:40 Hgb 8.6 g/dL (12.0-15.5) L 02/08/18 06:40 Hct 28.0 % (36.0-46.0) L 02/08/18 06:40 MCV 98.6 fL (80-95) H 02/08/18 06:40 MCH 30.3 pg (27.0-33.0) 02/08/18 06:40 MCHC 30.7 g/dL (32.0-36.0) L 02/08/18 06:40 RDW 15.2 % (11.7-14.6) H 02/08/18 06:40 Plt Count 175 x1000/uL (130-400) 02/08/18 06:40 MPV 10.2 fL (8.0-11.0) 02/08/18 06:40 Immature Gran % 0.2 02/08/18 06:40 Neutrophils % 63.7 02/08/18 06:40 Lymphocytes % 23.8 02/08/18 06:40 Monocytes % 10.9 02/08/18 06:40 Eosinophils % 0.9 02/08/18 06:40 Basophils % 0.5 02/08/18 06:40 Absolute Neutrophils 3.57 k/cumm (1.2-6.7) 02/08/18 06:40 Absolute Lymphocytes 1.33 k/cumm (1.2-3.4) 02/08/18 06:40 Absolute Monocytes 0.61 k/cumm (0.11-0.7) 02/08/18 06:40 Absolute Eosinophils 0.05 k/cumm (0.0-0.7) 02/08/18 06:40 Absolute Basophils 0.03 k/cumm (0.0-0.2) 02/08/18 06:40 PT 11.4 sec (9.3-10.8) H 02/08/18 06:40 INR 1.2 (1.0-3.5) 02/08/18 06:40 APTT 29.2 sec (21.0-31.4) 02/08/18 06:40 Sodium 135 mmol/L (136-145) L 02/08/18 06:40 Potassium 3.3 mmol/L (3.5-5.1) L 02/08/18 06:40 Chloride 102 mmol/L (98-107) 02/08/18 06:40 Carbon Dioxide 27.1 mmol/L (21.0-32.0) 02/08/18 06:40 Anion Gap 5.9 mmol/L (3-11) 02/08/18 06:40 BUN 18 mg/dL (7-18) 02/08/18 06:40 Creatinine 0.86 mg/dL (0.55-1.02) 02/08/18 06:40 Estimated GFR/1.73 m2 >= 60.00 (mL/min/1.73m2) 02/08/18 06:40 Glucose 119 mg/dL (70-100) H 02/08/18 06:40 Calcium 7.9 mg/dL (8.5-10.1) L 02/08/18 06:40 Phosphorus 1.8 mg/dL (2.6-4.7) L 02/08/18 06:40 Magnesium 1.7 mg/dL (1.8-2.4) L 02/08/18 06:40 Total Bilirubin 0.5 mg/dL (0.2-1.0) 02/08/18 06:40 AST 12 U/L (15-37) L 02/08/18 06:40 ALT 10 U/L (12-78) L 02/08/18 06:40 Alkaline Phosphatase 79 U/L (46-116) 02/08/18 06:40 Creatine Kinase 26 U/L (26-192) 02/06/18 12:20 Total Protein 5.7 g/dL (6.4-8.2) L 02/08/18 06:40 Albumin 2.7 g/dL (3.4-5.0) L 02/08/18 06:40 TSH 0.11 uIU/mL (0.358-3.74) L 02/06/18 12:20 Free T4 1.28 ng/dL (0.76-1.46) 02/06/18 12:20 Urine Color Yellow (Yellow) 02/06/18 13:15 Urine Clarity Cloudy 02/06/18 13:15 Urine pH 5.5 (5-8) 02/06/18 13:15 Ur Specific [place] >= 1.030 (1.005-1.025) H 02/06/18 13:15 Urine Protein 30 mg/dL (Negative) H 02/06/18 13:15 Urine Ketones 15 mg/dL (Negative) H 02/06/18 13:15 Urine Blood Trace-intact (Negative) H 02/06/18 13:15 Urine Nitrite Negative (Negative) 02/06/18 13:15 Urine Bilirubin Negative (Negative) 02/06/18 13:15 Urine Urobilinogen 0.2 EU/dL (Up TO 0.2) 02/06/18 13:15 Ur Leukocyte Esterase Large (Negative) H 02/06/18 13:15 Urine RBC 0-2 (0-2) 02/06/18 13:15 Urine WBC >50 HPF (0-5) 02/06/18 13:15 Ur Epithelial Cells Few HPF (Negative) 02/06/18 13:15 Urine Crystals Negative HPF (Negative) 02/06/18 13:15 Urine Bacteria Many HPF (Negative) 02/06/18 13:15 Urine Casts Negative LPF (Negative) 02/06/18 13:15 Urine Mucus Negative (Negative) 02/06/18 13:15 Ur Culture Indicated? Yes 02/06/18 13:15 Urine Glucose Negative mg/dL (Negative) 02/06/18 13:15
--- NOTE | 2018-02-09 13:43 | PT.INDS ---
Date of service: 02/09/18 Time of Service: 13:43 PT Notes Inpatient Physical Therapy Discharge Summary Date: 02/09/18 Dates of Service: 02/08/18 Pt went to receive PEG placement today and coded during procedure, now intubated. Due to change and decline in medical status, will discharge PT services until patient is medically stable and able to participate. Will need new MD order for PT Consult to resume. G Codes in the area mobility of walking and moving around: current status [id number] CM; projected status GP [id number] CM Discharge status (if discharging) GP [id number] Blanca Akhtar PT.
--- NOTE | 2018-02-09 13:47 | INDS_ITS ---
Date of service: 02/09/18 Time of Service: 13:43 PT Notes Inpatient Physical Therapy Discharge Summary Date: 02/09/18 Dates of Service: 02/08/18 Pt went to receive PEG placement today and coded during procedure, now intubated. Due to change and decline in medical status, will discharge PT services until patient is medically stable and able to participate. Will need new MD order for PT Consult to resume. G Codes in the area mobility of walking and moving around: current status [id number] CM; projected status GP [id number] CM Discharge status (if discharging) GP [id number] Blanca Akhtar PT.
[2018-02-09 14:11] LABS: Lactate-non-spesis 0.9 mmol/L (0.6-1.4)
--- NOTE | 2018-02-09 14:29 | PDOC.CMPRO ---
- If Service Date Differs Date of service: 02/09/18 Time of Service: 14:29 Care Management Progress Note S/O- Jaylyn went to the OR today for Peg tube placement. She will remain in the ICU for close monitoring. no change in plan. A-52 yo woman admitted with dysphagia. P-return to [facility] when medically appropriate, either via w/c van from [facility] or RCT van.
--- NOTE | 2018-02-09 14:30 | DI.RAD_ITS ---
SYMPTOMS/DIAGNOSIS: CHECK TUBE PLACEMENT CHEST X-RAY, PORTABLE AP VIEW: The patient has an endotracheal tube. The tip of the tube is seen in the right mainstem bronchus and should be retracted 4 cm. The heart size and pulmonary vasculature are within normal limits. The lungs are clear. No effusions or pneumothoraces are identified. IMPRESSION: Endotracheal tube with its tip in the right mainstem bronchus. It should be retracted approximately 4 cm. The ICU was contacted with these results.
[2018-02-09 14:32] LABS: Anion Gap 5.3 mmol/L (3-11); BUN 26 mg/dL (7-18); CO2 25.7 mmol/L (21.0-32.0); CREATININE 0.67 mg/dL (0.55-1.02); Chloride 102 mmol/L (98-107); Glucose 96 mg/dL (70-100); Magnesium 1.6 mg/dL (1.8-2.4); PHOSPHORUS 2.1 mg/dL (2.6-4.7); Potassium 3.7 mmol/L (3.5-5.1); Sodium 133 mmol/L (136-145); Troponin I 0.02 ng/mL (0.00-0.06)
--- NOTE | 2018-02-09 14:45 | DI.RAD_ITS ---
SYMPTOMS/DIAGNOSIS: ET TUBE MOVED OUT 2 CM, 21 CM AT THE LIP CHEST X-RAY, PORTABLE AP VIEW: Comparison with examination from earlier in the day. The endotracheal tube has been retracted. The tip of the tube is seen 2.5 cm above the benjamin. The heart size and pulmonary vasculature are within normal limits. The lungs remain clear. IMPRESSION: Endotracheal tube in good position 2.5 cm above the benjamin.
[2018-02-09 14:52] LABS: D-Dimer 1038 ng/mlFEU (<500)
[2018-02-09] MEDS: Enoxaparin 30 MG/0.3 ML SYR SC (15:01)
[2018-02-09] MEDS: PROPOFOL 1,000 MG/100 ML BTL 36.675 MG IVPB (15:04)
[2018-02-09] MEDS: PROPOFOL 1,000 MG/100 ML BTL 29.34 MG IVPB ×2 (16:26→19:45)
--- NOTE | 2018-02-09 17:03 | DI.CT_ITS ---
SYMPTOM/DIAGNOSIS: ACUTE RESPIRATORY ARREST, NONRESPONSIVE PE CHEST CT: CT angiography was performed with multi slice acquisition and multi planar and 3D reconstruction. CT scan of the chest was performed according to the pulmonary embolus protocol. Comparison is made with prior chest xrays from 02/09 through 02/11/18. There is no evidence of a pulmonary embolus. The thoracic aorta appears intact. No evidence of aneurysm or dissection is seen. Due to cardiac motion, portions of the ascending thoracic aorta are obscured. Follow up as clinically appropriate. Heart size is within normal limits. No significant pericardial effusion is seen. No findings to suggest right ventricular dysfunction are noted. No significant mediastinal or hilar adenopathy is present. No pleural effusion or pneumothorax is identified. There are bilateral basilar infiltrates which may represent atelectasis or pneumonia. Incidental note is made of a calcified granuloma in the right lower lobe. The patient has a nasogastric tube. The tip of the tube is seen in the stomach. The patient has an endotracheal tube. The tip of the tube is seen in the proximal right main stem bronchus. It extends approximately 5 mm. into the bronchus. Degenerative changes are seen in the spine. IMPRESSION: 1. No evidence of pulmonary embolus, thoracic aortic dissection or aneurysm. 2. Bilateral lower lobe infiltrates. This may represent atelectasis or pneumonia. 3. Endotracheal tube present with the tip projecting approximately 5 mm. into the right main stem bronchus. This is a change compared to the chest xray from 02/09/18 at 3:00 pm.
[2018-02-09] MEDS: Omnipaque 350 MG/ML 100 ML BTL IJ (18:06)
--- NOTE | 2018-02-09 18:41 | DI.VRAD_ITS ---
EXAM: CT Angiography Chest With Intravenous Contrast CLINICAL HISTORY: 52 years old, female; Signs and symptoms; Other: Respiratory distress TECHNIQUE: Axial computed tomographic angiography images of the chest with intravenous contrast using pulmonary embolism protocol. MIP reconstructed images were created and reviewed. Coronal and sagittal reformatted images were created and reviewed. COMPARISON: CT CHEST WITHOUT CONTRAST 10/08/2017 1:48 PM FINDINGS: Pulmonary arteries: Unremarkable. No pulmonary embolism. Aorta: Cardiac motion induced artifact limits evaluation of the proximal thoracic aorta. No mediastinal hematoma, definite aortic dissection or rupture identified. Consider gated CT angiogram of the chest as needed. Lungs: Calcified granuloma within the right lower lobe. Bilateral lower lobe mild atelectasis. No mass. Pleural space: Unremarkable. No significant effusion. No pneumothorax. Heart: No significant pericardial effusion. No evidence of RV dysfunction. Bones/joints: No acute fracture. No dislocation. Soft tissues: Unremarkable. Lymph nodes: Unremarkable. No enlarged lymph nodes. Tubes, lines and devices: Nasogastric tube present with tip in the gastric cavity. Endotracheal tube present with its tip projecting approximately 5 mm into the right mainstem bronchus. IMPRESSION: 1. No pulmonary arterial embolism. 2. Endotracheal tube present with tip projecting approximately 5 mm and the right mainstem bronchus. This represents a change when compared to the prior portable chest radiograph performed at 13:00 hrs. on 02/09/2018. 3. Bilateral lower lobe mild atelectasis. Dictated and Authenticated by: Jesus Villanueva MD. Ordering:[facility] HERVE RINALDI MD
[2018-02-09 19:31] LABS: Troponin I 0.03 ng/mL (0.00-0.06)
--- NOTE | 2018-02-09 20:23 | DI.RAD_ITS ---
SYMPTOM/DIAGNOSIS: RECHECK ETT PLACEMENT PORTABLE AP CHEST at 905 pm: Heart size and pulmonary vasculature are within normal limits. The endotracheal tube is seen with its tip approximately 3.5 cm. above the benjamin. There is a nasogastric tube which passes into the stomach. The lungs appear clear with minimal scarring or atelectasis in the left lung base medially. No effusions or pneumothoraces are identified. IMPRESSION: 1. Endotracheal tube 3.5 cm. above the benjamin. Nasogastric tube passing into the stomach. 2. Left basilar atelectasis or scarring.
[2018-02-09] MEDS: Normal Saline Flush 10 ML SYR IV (20:32)
--- NOTE | 2018-02-09 21:15 | W.PM.PROGNOT ---
Date of service: 02/09/18 Time of Service: 17:00 Assessment and Plan (1) Respiratory distress, acute: Start date: 02/09/18 Start time: 14:30 Current visit: Yes Status: Acute Neurologic: Patient currently sedated on propofol, doing well, hemodynamically stable, parkinsonian meds held tonight will give through G-tube in morning or after patient is extubated tomorrow. Cardiac: Cardiac workup so far negative troponins negative, EKG sinus rhythm, he was hemodynamically stable with maps in the 70s Respiratory: We will keep Ms. So intubated overnight on SIMV. I set her rate at 8 to prevent her from tiring out pressure support is 10 she is a PEEP of 5, FiO2 is 35% plan for extubation in the a.m. after sedation holiday. Gastrointestinal: Unable to place PEG tube today will complete cardiac workup and anticipates possible PEG tube placement Tuesday 02/13, will start GI prophylaxis with ranitidine Renal: Kidney function adequate Nutrition//Fluids/electrolytes: I have restarted her TPN will replace electrolytes as needed she seemed to be getting an adequate level of fluids Hematology/Oncology: Continue DVT prophylaxis Musculoskeletal: We will start physical therapy, and wound dressings for sacral wound prevention. Pyschiatric: No issue Infectious Disease: Urinary tract infection was told Lines/Tubes/Dressings: We will confirm midline had been upgraded to PICC line, Mepilex drip dressing to sacrum for decubitus prevention. Disposition: Continue ICU care Subjective Patient reports: shortness of breath and other (Acute respiratory failure) Interval history since last seen: 52-year-old woman with severe parkinsonian tremor, and dysphasia, with severe weight loss. She had been a resident at nearby health [facility] re[facility] facility. She was transferred for percutaneous gastrostomy tube placement. At presentation she was found to be febrile. She had had a history of neuroleptic malignant like syndrome, and given this history she was admitted to the hospital for further workup of fever of unknown origin. She was subsequently found to have a urinary tract infection susceptible to ciprofloxacin. She was scheduled for percutaneous endoscopic gastrostomy tube placement today. Prior to being able to perform the procedure in the OR, she had rapid onset acute respiratory distress with transient cardiac arrest. This did not last longer than 1-2 minutes, and she quickly rebounded with no significant interventions. The cause of her transient respiratory distress is uncertain as she was being actively ventilated at the time of onset there is nothing to suggest mucous plugging, obstruction of the tube, drug reaction. Workup for etiology has only found right mainstem intubation as a probable cause. Exam Const General: no acute distress Nutritional Appearance: malnourished and underweight Orientation: other (Intubated and sedated) Eyes Sclera: sclerae normal Pupils: PERRL EOM: EOM intact bilaterally Neck Neck: normal visual inspection, trachea midline, supple and anterior neck swelling Chest Chest: normal palpation of entire chest wall and crepitus Resp Auscultation: clear to auscultation bilaterally, no crackles and no wheezes Cardio Jugular venous pressure: JVD present Rate: abnormal rate Rhythm: regular rhythm GI Palpation: soft, not firm and not rigid Percussion: abnormal to percussion Auscultation: bowels sounds not normal Skin General skin exam: no rashes or lesions noted and excoriation(s) (sacral) Rashes: no rashes Hair: general thinning Objective Objective Clinical Data: Vital Signs Temp 36.4 C L 02/09/18 19:53 Pulse 85 02/09/18 21:00 Resp 13 02/09/18 21:00 BP 143/63 H 02/09/18 21:00 Pulse Ox 94 L 02/09/18 20:43 Intake & Output 02/09/18 02/09/18 02/10/18 06:59 18:59 06:59 Intake Total 1263.347 / 7942.403 4191.432 / 7048.626 0115.653 / 1357.653 Output Total 1400 / 1400 1700 / 1700 Balance -136.653 / -136.653 -100.568 / -660.125 7441.653 / 1357.653 Weight 48.9 kg Intake: IV 1263.347 / 2471.968 5093.432 / 5742.781 7426.653 / 1357.653 Output: Urine 1400 / 1400 1700 / 1700 Other: Urine Color Pale Yellow Yellow Urine Appearance Clear Sediment Comment Mccall in place, draining adequate amounts of cloudy yellow urine Mccall in place, draining adequate amounts of cloudy yellow urine Gastric Occult Blood Left Nare Negative Laboratory Results - last 24 hr 02/09/18 02/09/18 02/09/18 14:00 14:00 14:00 D-Dimer 1038 H Sodium 133 L Potassium 3.7 Chloride 102 Carbon Dioxide 25.7 Anion Gap 5.3 BUN 26 H Creatinine 0.67 Estimated GFR/1.73 m2 >= 60.00 Glucose 96 Lactate 0.9 Calcium 8.0 L Phosphorus 2.1 L Magnesium 1.6 L Troponin I 0.02 02/09/18 19:03 D-Dimer Sodium Potassium Chloride Carbon Dioxide Anion Gap BUN Creatinine Estimated GFR/1.73 m2 Glucose Lactate Calcium Phosphorus Magnesium Troponin I 0.03 XR Chest, 1 View CLINICAL HISTORY: 52 years old, female; Device placement; Ett placement (vent status) TECHNIQUE: Frontal view of the chest. COMPARISON: CR XR PORTABLE CHEST AP 02/09/2018 3:00 PM IMPRESSION: 1. Endotracheal tube tip 3.5 cm above the benjamin. 2. Nasogastric tube tip in the stomach. Dictated and Authenticated by: Jesus Villanueva MD. CT Angiography Chest With Intravenous Contrast CLINICAL HISTORY: 52 years old, female; Signs and symptoms; Other: Respiratory distress IMPRESSION: 1. No pulmonary arterial embolism. 2. Endotracheal tube present with tip projecting approximately 5 mm and the right mainstem bronchus. This represents a change when compared to the prior portable chest radiograph performed at 13:00 hrs. on 02/09/2018. 3. Bilateral lower lobe mild atelectasis.
--- NOTE | 2018-02-09 21:25 | DI.VRAD_ITS ---
EXAM: XR Chest, 1 View CLINICAL HISTORY: 52 years old, female; Device placement; Ett placement (vent status) TECHNIQUE: Frontal view of the chest. COMPARISON: CR XR PORTABLE CHEST AP 02/09/2018 3:00 PM FINDINGS: Lungs: Minimal linear atelectasis and/or scar in the left medial lung base. Clear right lung. Pleural space: Unremarkable. No pneumothorax or pleural effusion. Heart: Unremarkable. No cardiomegaly. Mediastinum: Unremarkable. The mediastinal contour is unremarkable. Bones/joints: Unremarkable. No acute osseous abnormality identified. Tubes, lines and devices: Endotracheal tube tip located 3.5 cm above the benjamin. Nasogastric tube extending into stomach. IMPRESSION: 1. Endotracheal tube tip 3.5 cm above the benjamin. 2. Nasogastric tube tip in the stomach. Dictated and Authenticated by: Jesus Villanueva MD. Ordering:[facility] HERVE RINALDI MD
[2018-02-09] MEDS: POTASSIUM CHLORIDE/D5-0.45NACL 1,000 ML 50 MEQ IV (23:27)
[2018-02-09] MEDS: PROPOFOL 1,000 MG/100 ML BTL 24.939 MG IVPB (23:41)
[2018-02-10] VITALS (72 sets, daily range): BP systolic 101–138; BP diastolic 42–110; PULSE 77–162; RESP 11–24; TEMP 36.4–38.4; O2SAT 92–100
[2018-02-10] MEDS: PROPOFOL 1,000 MG/100 ML BTL 24.939 MG IVPB (02:51)
[2018-02-10] MEDS: ACETAMINOPHEN 1,000 MG/100 ML BTL 400 MG IVPB ×3 (06:47→21:32)
[2018-02-10] MEDS: PROPOFOL 1,000 MG/100 ML BTL 24.9 MG IVPB ×3 (06:56→21:20)
[2018-02-10 07:18] LABS: Abs Immature Grans 0.01 k/cumm (0.0-0.09); Absolute Basophil Count 0.02 k/cumm (0.0-0.2); Absolute Eosinophil Count 0.19 k/cumm (0.0-0.7); Absolute Lymphocyte Count 0.56 k/cumm (1.2-3.4); Absolute Monocyte Count 0.42 k/cumm (0.11-0.7); Absolute Neutrophil Count 4.69 k/cumm (1.2-6.7); Basophils % 0.3; Eosinophils % 3.2; HCT 24.8 % (36.0-46.0); Immature Grans % 0.2; Lymphocytes % 9.5; Mean Corp. HGB Concentration 32.3 g/dL (32.0-36.0); Mean Corpuscular Hemoglobin 32.5 pg (27.0-33.0); Mean Corpuscular Volume 100.8 fL (80-95); Mean Platelet Volume 11.2 fL (8.0-11.0); Monocytes % 7.1; Neutrophils % 79.7; Platelet Count 162 x1000/uL (130-400); RBC 2.46 m/cumm (4.00-5.20); RBC Distribution Width 15.4 % (11.7-14.6); White Blood Cell Count 5.89 k/cumm (4.4-10.8)
[2018-02-10 07:40] LABS: Anion Gap 4.2 mmol/L (3-11); BUN 24 mg/dL (7-18); CO2 22.8 mmol/L (21.0-32.0); CREATININE 0.74 mg/dL (0.55-1.02); Calcium 6.6 mg/dL (8.5-10.1); Chloride 99 mmol/L (98-107); Potassium 5.2 mmol/L (3.5-5.1); Sodium 126 mmol/L (136-145)
[2018-02-10 08:01] LABS: Glucose 516 mg/dL (70-100)
[2018-02-10] MEDS: rOPINIRole 0.5 MG TAB 0.25 MG PO ×3 (08:02→19:48)
[2018-02-10] MEDS: CIPROFLOXACIN 400 MG/200 ML BAG 200 MG IVPB ×2 (08:05→19:50)
[2018-02-10] MEDS: Normal Saline Flush 10 ML SYR IV ×4 (08:05→22:08)
[2018-02-10 09:20] LABS: Anion Gap 4.7 mmol/L (3-11); BUN 27 mg/dL (7-18); CO2 27.3 mmol/L (21.0-32.0); CREATININE 0.83 mg/dL (0.55-1.02); Chloride 106 mmol/L (98-107); Glucose 142 mg/dL (70-100); Potassium 3.6 mmol/L (3.5-5.1); Sodium 138 mmol/L (136-145)
[2018-02-10 09:21] LABS: Calcium 8.4 mg/dL (8.5-10.1)
--- NOTE | 2018-02-10 11:07 | W.PM.PROGNOT ---
Date of service: 02/10/18 Time of Service: 11:08 Assessment and Plan (1) Respiratory distress, acute: Current visit: No Status: Acute Likely precipitated by inadvertant intubation of the right mainstem bronchus prior to planned PEG tube placement. Currently resolved. Discussed with surgery regarding possibility for continuing intubation and mechanical ventilation, with reattempt at PEG tube placement while patient is still intubated. However, anesthesia currently prefers waiting and having patient undergo a stress test first. Mrs. So has a recent history of elevated Troponins in the setting of sepsis, potential seizure activity with Neuroleptic Malignant Syndrome like symptoms, JOSEPH, and rhabdomyolysis - deemed likely secondary to ischemia in setting of demand. Current troponins trended negative. Acute respiratory distress appears resolved. (2) UTI (urinary tract infection): Current visit: Yes Status: Acute Continue day #4 of ciprofloxacin. Urine Culture with Enterobacter Cloacae, sensitive to Fluoroquinolone therapy. (3) Parkinsons disease: Current visit: Yes Status: Chronic Continue home antiparkinsonian medications. (4) Dysphagia: Current visit: Yes Status: Chronic Patient continues on TPN while she awaits her PEG tube placement, date to be determined. (5) Anemia: Current visit: Yes Status: Chronic Check anemia labs, stool for occult blood. Current Hgb low but may be somewhat dilutional. Monitor closely. Will also initiate PPI therapy. (6) DVT prophylaxis: Current visit: No Status: Chronic SC Lovenox. Subjective Patient reports: shortness of breath and other (Acute respiratory failure) Interval history since last seen: 52-year-old woman with a PMHx significant for severe PD with concurrent dysphasia, weight loss, and malnutrition, admitted to [facility] on 02/06/2018 for a planned elective PEG tube placement. Ms. So is a resident at nearby [facility] facility. She has significant dysphagia, and was admitted in September of this year following a significant aspiration event. She was admitted for percutaneous gastrostomy tube placement, but found to be febrile and with a UTI, and remains on antibiotic therapy without any further evidence of active infection. She was scheduled for PEG-tube placement on 02/09, but prior to the procedure in the OR, she had rapid onset acute respiratory distress with transient cardiac arrest. This did not last longer than 1-2 minutes, and she quickly rebounded with no significant interventions. The cause of her transient respiratory distress appears to have been inadvertant intubation of the right mainstem bronchus. Patient appears to be awake and alert, still intubated this morning. She remains afebrile, and blood pressures have been reasonable. No overnight events reported. Exam Narrative Exam Narrative: GEN: Awake, Alert, Intubated. Noted significant tremors from baseline PD, appear unchanged from baseline. Neck: Supple Pulm: Clear to auscultation without wheezes, crackles, or rhonchi. CV: regular without murmur rub or gallop, borderline tachycardic Abdomen: +BS, soft and nontender. Vasc: Lower extremities without peripheral cyanosis or edema Objective Objective Clinical Data: Abnormal lab results 02/09/18 02/09/18 02/10/18 Range/Units 14:00 14:00 06:46 RBC (4.00-5.20) m/cumm Hgb (12.0-15.5) g/dL Hct (36.0-46.0) % MCV (80-95) fL RDW (11.7-14.6) % MPV (8.0-11.0) fL Absolute Lymphocytes (1.2-3.4) k/cumm D-Dimer 1038 H (<500) ng/mlFEU Sodium 133 L 126 L (136-145) mmol/L Potassium 5.2 H D (3.5-5.1) mmol/L BUN 26 H 24 H (7-18) mg/dL Glucose 516 H* D (70-100) mg/dL Calcium 8.0 L 6.6 L (8.5-10.1) mg/dL Phosphorus 2.1 L (2.6-4.7) mg/dL Magnesium 1.6 L (1.8-2.4) mg/dL 02/10/18 02/10/18 Range/Units 06:46 08:53 RBC 2.46 L (4.00-5.20) m/cumm Hgb 8.0 L (12.0-15.5) g/dL Hct 24.8 L (36.0-46.0) % MCV 100.8 H (80-95) fL RDW 15.4 H (11.7-14.6) % MPV 11.2 H (8.0-11.0) fL Absolute Lymphocytes 0.56 L (1.2-3.4) k/cumm D-Dimer (<500) ng/mlFEU Sodium (136-145) mmol/L Potassium (3.5-5.1) mmol/L BUN 27 H (7-18) mg/dL Glucose 142 H D (70-100) mg/dL Calcium 8.4 L (8.5-10.1) mg/dL Phosphorus (2.6-4.7) mg/dL Magnesium (1.8-2.4) mg/dL Vital Signs Temp 36.8 C 02/10/18 08:12 Pulse 92 H 02/10/18 09:49 Resp 15 02/10/18 09:49 BP 104/70 02/10/18 09:49 Pulse Ox 99 02/10/18 09:49 Intake & Output 02/09/18 02/09/18 02/10/18 11:59 23:59 11:59 Intake Total 619.167 / 816.123 0391.798 / 2868.798 1572.032 / 1572.032 Output Total 700 / 700 2350 / 2350 860 / 860 Balance -80.833 / -80.833 518.798 / 518.798 712.032 / 712.032 Weight 48.9 kg 52.9 kg Intake: IV 619.167 / 894.287 9283.798 / 2868.798 1572.032 / 1572.032 Output: Gastric Drainage 300 / 300 100 / 100 Left Nare 300 / 300 100 / 100 Urine 700 / 700 2049 / 2049 760 / 760 Other: Urine Color Yellow Yellow Urine Appearance Clear Clear Comment Per previous RN Floyd Randall she emtied 700 from marks at 1130 this am. Not documented by previous shift thus documented retroactively by this RN based on report Marks in place, draining adequate amounts of clear yellow urine Marks catheter in place and draining yellow urine. Gastric Occult Blood Left Nare Negative Negative Laboratory Results WBC 5.89 k/cumm (4.4-10.8) 02/10/18 06:46 RBC 2.46 m/cumm (4.00-5.20) L 02/10/18 06:46 Hgb 8.0 g/dL (12.0-15.5) L 02/10/18 06:46 Hct 24.8 % (36.0-46.0) L 02/10/18 06:46 MCV 100.8 fL (80-95) H 02/10/18 06:46 MCH 32.5 pg (27.0-33.0) 02/10/18 06:46 MCHC 32.3 g/dL (32.0-36.0) 02/10/18 06:46 RDW 15.4 % (11.7-14.6) H 02/10/18 06:46 Plt Count 162 x1000/uL (130-400) 02/10/18 06:46 MPV 11.2 fL (8.0-11.0) H 02/10/18 06:46 Immature Gran % 0.2 02/10/18 06:46 Neutrophils % 79.7 02/10/18 06:46 Lymphocytes % 9.5 02/10/18 06:46 Monocytes % 7.1 02/10/18 06:46 Eosinophils % 3.2 02/10/18 06:46 Basophils % 0.3 02/10/18 06:46 Absolute Neutrophils 4.69 k/cumm (1.2-6.7) 02/10/18 06:46 Absolute Lymphocytes 0.56 k/cumm (1.2-3.4) L 02/10/18 06:46 Absolute Monocytes 0.42 k/cumm (0.11-0.7) 02/10/18 06:46 Absolute Eosinophils 0.19 k/cumm (0.0-0.7) 02/10/18 06:46 Absolute Basophils 0.02 k/cumm (0.0-0.2) 02/10/18 06:46 PT 11.4 sec (9.3-10.8) H 02/08/18 06:40 INR 1.2 (1.0-3.5) 02/08/18 06:40 APTT 29.2 sec (21.0-31.4) 02/08/18 06:40 D-Dimer 1038 ng/mlFEU (<500) H 02/09/18 14:00 Sodium 138 mmol/L (136-145) D 02/10/18 08:53 Potassium 3.6 mmol/L (3.5-5.1) D 02/10/18 08:53 Chloride 106 mmol/L (98-107) 02/10/18 08:53 Carbon Dioxide 27.3 mmol/L (21.0-32.0) 02/10/18 08:53 Anion Gap 4.7 mmol/L (3-11) 02/10/18 08:53 BUN 27 mg/dL (7-18) H 02/10/18 08:53 Creatinine 0.83 mg/dL (0.55-1.02) 02/10/18 08:53 Estimated GFR/1.73 m2 >= 60.00 (mL/min/1.73m2) 02/10/18 08:53 Glucose 142 mg/dL (70-100) H D 02/10/18 08:53 Lactate 0.9 mmol/L (0.6-1.4) 02/09/18 14:00 Calcium 8.4 mg/dL (8.5-10.1) L 02/10/18 08:53 Phosphorus 2.1 mg/dL (2.6-4.7) L 02/09/18 14:00 Magnesium 1.6 mg/dL (1.8-2.4) L 02/09/18 14:00 Total Bilirubin 0.5 mg/dL (0.2-1.0) 02/08/18 06:40 AST 12 U/L (15-37) L 02/08/18 06:40 ALT 10 U/L (12-78) L 02/08/18 06:40 Alkaline Phosphatase 79 U/L (46-116) 02/08/18 06:40 Creatine Kinase 26 U/L (26-192) 02/06/18 12:20 Troponin I 0.03 ng/mL (0.00-0.06) 02/09/18 19:03 Total Protein 5.7 g/dL (6.4-8.2) L 02/08/18 06:40 Albumin 2.7 g/dL (3.4-5.0) L 02/08/18 06:40 TSH 0.11 uIU/mL (0.358-3.74) L 02/06/18 12:20 Free T4 1.28 ng/dL (0.76-1.46) 02/06/18 12:20 Urine Color Yellow (Yellow) 02/06/18 13:15 Urine Clarity Cloudy 02/06/18 13:15 Urine pH 5.5 (5-8) 02/06/18 13:15 Ur Specific [place] >= 1.030 (1.005-1.025) H 02/06/18 13:15 Urine Protein 30 mg/dL (Negative) H 02/06/18 13:15 Urine Ketones 15 mg/dL (Negative) H 02/06/18 13:15 Urine Blood Trace-intact (Negative) H 02/06/18 13:15 Urine Nitrite Negative (Negative) 02/06/18 13:15 Urine Bilirubin Negative (Negative) 02/06/18 13:15 Urine Urobilinogen 0.2 EU/dL (Up TO 0.2) 02/06/18 13:15 Ur Leukocyte Esterase Large (Negative) H 02/06/18 13:15 Urine RBC 0-2 (0-2) 02/06/18 13:15 Urine WBC >50 HPF (0-5) 02/06/18 13:15 Ur Epithelial Cells Few HPF (Negative) 02/06/18 13:15 Urine Crystals Negative HPF (Negative) 02/06/18 13:15 Urine Bacteria Many HPF (Negative) 02/06/18 13:15 Urine Casts Negative LPF (Negative) 02/06/18 13:15 Urine Mucus Negative (Negative) 02/06/18 13:15 Ur Culture Indicated? Yes 02/06/18 13:15 Urine Glucose Negative mg/dL (Negative) 02/06/18 13:15
--- NOTE | 2018-02-10 11:16 | PGE_ITS ---
Date of service: 02/10/18 Time of Service: 11:08 Assessment and Plan (1) Respiratory distress, acute: Current visit: No Status: Acute Likely precipitated by inadvertant intubation of the right mainstem bronchus prior to planned PEG tube placement. Currently resolved. Discussed with surgery regarding possibility for continuing intubation and mechanical ventilation, with reattempt at PEG tube placement while patient is still intubated. However, anesthesia currently prefers waiting and having patient undergo a stress test first. Mrs. So has a recent history of elevated Troponins in the setting of sepsis , potential seizure activity with Neuroleptic Malignant Syndrome like symptoms, JOSEPH, and rhabdomyolysis - deemed likely secondary to ischemia in setting of demand. Current troponins trended negative. Acute respiratory distress appears resolved. (2) UTI (urinary tract infection): Current visit: Yes Status: Acute Continue day #4 of ciprofloxacin. Urine Culture with Enterobacter Cloacae , sensitive to Fluoroquinolone therapy. (3) Parkinsons disease: Current visit: Yes Status: Chronic Continue home antiparkinsonian medications. (4) Dysphagia: Current visit: Yes Status: Chronic Patient continues on TPN while she awaits her PEG tube placement, date to be determined. (5) Anemia: Current visit: Yes Status: Chronic Check anemia labs, stool for occult blood. Current Hgb low but may be somewhat dilutional. Monitor closely. Will also initiate PPI therapy. (6) DVT prophylaxis: Current visit: No Status: Chronic SC Lovenox. Subjective Patient reports: shortness of breath and other (Acute respiratory failure) Interval history since last seen: 52-year-old woman with a PMHx significant for severe PD with concurrent dysphasia, weight loss, and malnutrition, admitted to [facility] on 02/06/2018 for a planned elective PEG tube placement. Ms. So is a resident at nearby [facility] re[facility] facility. She has significant dysphagia, and was admitted in September of this year following a significant aspiration event. She was admitted for percutaneous gastrostomy tube placement, but found to be febrile and with a UTI, and remains on antibiotic therapy without any further evidence of active infection. She was scheduled for PEG-tube placement on 02/09, but prior to the procedure in the OR, she had rapid onset acute respiratory distress with transient cardiac arrest. This did not last longer than 1-2 minutes, and she quickly rebounded with no significant interventions. The cause of her transient respiratory distress appears to have been inadvertant intubation of the right mainstem bronchus. Patient appears to be awake and alert, still intubated this morning. She remains afebrile, and blood pressures have been reasonable. No overnight events reported. Exam Narrative Exam Narrative: GEN: Awake, Alert, Intubated. Noted significant tremors from baseline PD, appear unchanged from baseline. Neck: Supple Pulm: Clear to auscultation without wheezes, crackles, or rhonchi. CV: regular without murmur rub or gallop, borderline tachycardic Abdomen: +BS, soft and nontender. Vasc: Lower extremities without peripheral cyanosis or edema Objective Objective Clinical Data: Abnormal lab results 02/09/18 02/09/18 02/10/18 Range/Units 14:00 14:00 06:46 RBC (4.00-5.20) m/cumm Hgb (12.0-15.5) g/dL Hct (36.0-46.0) % MCV (80-95) fL RDW (11.7-14.6) % MPV (8.0-11.0) fL Absolute Lymphocytes (1.2-3.4) k/cumm D-Dimer 1038 H (<500) ng/mlFEU Sodium 133 L 126 L (136-145) mmol/L Potassium 5.2 H D (3.5-5.1) mmol/L BUN 26 H 24 H (7-18) mg/dL Glucose 516 H* D (70-100) mg/dL Calcium 8.0 L 6.6 L (8.5-10.1) mg/dL Phosphorus 2.1 L (2.6-4.7) mg/dL Magnesium 1.6 L (1.8-2.4) mg/dL 02/10/18 02/10/18 Range/Units 06:46 08:53 RBC 2.46 L (4.00-5.20) m/cumm Hgb 8.0 L (12.0-15.5) g/dL Hct 24.8 L (36.0-46.0) % MCV 100.8 H (80-95) fL RDW 15.4 H (11.7-14.6) % MPV 11.2 H (8.0-11.0) fL Absolute Lymphocytes 0.56 L (1.2-3.4) k/cumm D-Dimer (<500) ng/mlFEU Sodium (136-145) mmol/L Potassium (3.5-5.1) mmol/L BUN 27 H (7-18) mg/dL Glucose 142 H D (70-100) mg/dL Calcium 8.4 L (8.5-10.1) mg/dL Phosphorus (2.6-4.7) mg/dL Magnesium (1.8-2.4) mg/dL Vital Signs Temp 36.8 C 02/10/18 08:12 Pulse 92 H 02/10/18 09:49 Resp 15 02/10/18 09:49 BP 104/70 02/10/18 09:49 Pulse Ox 99 02/10/18 09:49 Intake & Output 02/09/18 02/09/18 02/10/18 11:59 23:59 11:59 Intake Total 619.167 / 249.943 0719.798 / 2868.798 1572.032 / 1572.032 Output Total 700 / 700 2350 / 2350 860 / 860 Balance -80.833 / -80.833 518.798 / 518.798 712.032 / 712.032 Weight 48.9 kg 52.9 kg Intake: IV 619.167 / 798.372 2432.798 / 2868.798 1572.032 / 1572.032 Output: Gastric Drainage 300 / 300 100 / 100 Left Nare 300 / 300 100 / 100 Urine 700 / 700 2049 / 2049 760 / 760 Other: Urine Color Yellow Yellow Urine Appearance Clear Clear Comment Per previous RN Floyd Randall she emtied 700 from marks at 1130 this am. Not documented by previous shift thus documented retroactively by this RN based on report Marks in place, draining adequate amounts of clear yellow urine Marks catheter in place and draining yellow urine. Gastric Occult Blood Left Nare Negative Negative Laboratory Results WBC 5.89 k/cumm (4.4-10.8) 02/10/18 06:46 RBC 2.46 m/cumm (4.00-5.20) L 02/10/18 06:46 Hgb 8.0 g/dL (12.0-15.5) L 02/10/18 06:46 Hct 24.8 % (36.0-46.0) L 02/10/18 06:46 MCV 100.8 fL (80-95) H 02/10/18 06:46 MCH 32.5 pg (27.0-33.0) 02/10/18 06:46 MCHC 32.3 g/dL (32.0-36.0) 02/10/18 06:46 RDW 15.4 % (11.7-14.6) H 02/10/18 06:46 Plt Count 162 x1000/uL (130-400) 02/10/18 06:46 MPV 11.2 fL (8.0-11.0) H 02/10/18 06:46 Immature Gran % 0.2 02/10/18 06:46 Neutrophils % 79.7 02/10/18 06:46 Lymphocytes % 9.5 02/10/18 06:46 Monocytes % 7.1 02/10/18 06:46 Eosinophils % 3.2 02/10/18 06:46 Basophils % 0.3 02/10/18 06:46 Absolute Neutrophils 4.69 k/cumm (1.2-6.7) 02/10/18 06:46 Absolute Lymphocytes 0.56 k/cumm (1.2-3.4) L 02/10/18 06:46 Absolute Monocytes 0.42 k/cumm (0.11-0.7) 02/10/18 06:46 Absolute Eosinophils 0.19 k/cumm (0.0-0.7) 02/10/18 06:46 Absolute Basophils 0.02 k/cumm (0.0-0.2) 02/10/18 06:46 PT 11.4 sec (9.3-10.8) H 02/08/18 06:40 INR 1.2 (1.0-3.5) 02/08/18 06:40 APTT 29.2 sec (21.0-31.4) 02/08/18 06:40 D-Dimer 1038 ng/mlFEU (<500) H 02/09/18 14:00 Sodium 138 mmol/L (136-145) D 02/10/18 08:53 Potassium 3.6 mmol/L (3.5-5.1) D 02/10/18 08:53 Chloride 106 mmol/L (98-107) 02/10/18 08:53 Carbon Dioxide 27.3 mmol/L (21.0-32.0) 02/10/18 08:53 Anion Gap 4.7 mmol/L (3-11) 02/10/18 08:53 BUN 27 mg/dL (7-18) H 02/10/18 08:53 Creatinine 0.83 mg/dL (0.55-1.02) 02/10/18 08:53 Estimated GFR/1.73 m2 >= 60.00 (mL/min/1.73m2) 02/10/18 08:53 Glucose 142 mg/dL (70-100) H D 02/10/18 08:53 Lactate 0.9 mmol/L (0.6-1.4) 02/09/18 14:00 Calcium 8.4 mg/dL (8.5-10.1) L 02/10/18 08:53 Phosphorus 2.1 mg/dL (2.6-4.7) L 02/09/18 14:00 Magnesium 1.6 mg/dL (1.8-2.4) L 02/09/18 14:00 Total Bilirubin 0.5 mg/dL (0.2-1.0) 02/08/18 06:40 AST 12 U/L (15-37) L 02/08/18 06:40 ALT 10 U/L (12-78) L 02/08/18 06:40 Alkaline Phosphatase 79 U/L (46-116) 02/08/18 06:40 Creatine Kinase 26 U/L (26-192) 02/06/18 12:20 Troponin I 0.03 ng/mL (0.00-0.06) 02/09/18 19:03 Total Protein 5.7 g/dL (6.4-8.2) L 02/08/18 06:40 Albumin 2.7 g/dL (3.4-5.0) L 02/08/18 06:40 TSH 0.11 uIU/mL (0.358-3.74) L 02/06/18 12:20 Free T4 1.28 ng/dL (0.76-1.46) 02/06/18 12:20 Urine Color Yellow (Yellow) 02/06/18 13:15 Urine Clarity Cloudy 02/06/18 13:15 Urine pH 5.5 (5-8) 02/06/18 13:15 Ur Specific [place] >= 1.030 (1.005-1.025) H 02/06/18 13:15 Urine Protein 30 mg/dL (Negative) H 02/06/18 13:15 Urine Ketones 15 mg/dL (Negative) H 02/06/18 13:15 Urine Blood Trace-intact (Negative) H 02/06/18 13:15 Urine Nitrite Negative (Negative) 02/06/18 13:15 Urine Bilirubin Negative (Negative) 02/06/18 13:15 Urine Urobilinogen 0.2 EU/dL (Up TO 0.2) 02/06/18 13:15 Ur Leukocyte Esterase Large (Negative) H 02/06/18 13:15 Urine RBC 0-2 (0-2) 02/06/18 13:15 Urine WBC >50 HPF (0-5) 02/06/18 13:15 Ur Epithelial Cells Few HPF (Negative) 02/06/18 13:15 Urine Crystals Negative HPF (Negative) 02/06/18 13:15 Urine Bacteria Many HPF (Negative) 02/06/18 13:15 Urine Casts Negative LPF (Negative) 02/06/18 13:15 Urine Mucus Negative (Negative) 02/06/18 13:15 Ur Culture Indicated? Yes 02/06/18 13:15 Urine Glucose Negative mg/dL (Negative) 02/06/18 13:15
[2018-02-10] MEDS: Pantoprazole 40 MG VIAL IVP (12:57)
[2018-02-10] MEDS: Water,Injection,Bacteriostatic 30 ML VIAL IJ (12:57)
[2018-02-10] MEDS: Enoxaparin 40 MG/0.4 ML SYR SC (14:00)
[2018-02-10] MEDS: PROPOFOL 1,000 MG/100 ML BTL 23.5 MG IVPB (14:26)
[2018-02-10] MEDS: Carbidopa 25/Levodopa 100 TAB PO ×2 (14:37→19:49)
--- NOTE | 2018-02-10 14:49 | PDOC.CMPRO ---
- If Service Date Differs Date of service: 02/10/18 Time of Service: 14:49 Care Management Progress Note S/O: Jaylyn remains intubated this morning. She was unable to have the PEG tube placed yesterday, therefore this has been rescheduled for early this coming week. No change in plan at this time. A: 52 y/o female admitted 02/06/18 for dysphagia. P: Jaylyn will return to [facility] once medically cleared. Transportation via [facility] or [facility] van depending on presentation at time of DC.
[2018-02-10 16:40] LABS: Ferritin 464 ng/mL (8-388)
--- NOTE | 2018-02-10 16:46 | W.PM.PROGNOT ---
Date of service: 02/10/18 Time of Service: 16:46 Assessment and Plan (1) Dysphagia: Current visit: Yes Status: Chronic Neurologic: Patient remains sedated on propofol with a minimum dose to keep her comfortable while intubated sedation holiday this a.m. she was breathing on her own. Cardiac: Hemodynamically Respiratory: Respiratory distress resolved, stable on the vent. Trial of pressure support 10 and 5 went well this morning satting 98% on room air. Gastrointestinal: Planning for PEG tube placement tomorrow Renal: Creatinine normal good urine output Nutrition//Fluids/electrolytes: Continuing TPN until able to start tube feeds, will correct electrolyte imbalances and TPN and add as needed Hematology/Oncology: Patient on prophylactic Lovenox for DVT, anemia workup in progress. Suspect this is anemia of chronic disease along with anemia of the ICU Musculoskeletal: She is receiving her Requip and amantadine through her NG tube. I have changed her Sinemet to quick release formula dosing is close to what her extended release is as possible Pyschiatric: Currently sedated, she is often anxious. Infectious Disease: UTI resolved we will stop ciprofloxacin Lines/Tubes/Dressings: PICC line in place no signs of infection NG, tube in good position Disposition: Continue ICU care appreciate medicine's assistance with care of patient. Subjective Patient reports: no new complaints and other (Intubated, sedated. Hemodynamically stable) Interval history since last seen: 52-year-old woman with severe parkinsonian syndrome admitted for fevers of unknown origin. She was originally to have a PEG tube placed but at presentation was noted to have a fever. She was admitted for workup this which subsequently showed a urinary tract infection. She was treated for this and started on TPN. Subsequently she was scheduled to have her PEG tube placed, but at time of placement prior to the procedure she had a respiratory arrest. She recovered from this which was believed to be due to intubation of the right mainstem bronchus. She remained sedated and planning for PEG tube placement tomorrow Exam Const General: no acute distress and patient mechanically ventilated Nutritional Appearance: malnourished and underweight Resp Auscultation: clear to auscultation bilaterally, no crackles and no wheezes Cardio Jugular venous pressure: no JVD Rate: regular rate Rhythm: regular rhythm Pulses: normal peripheral pulses GI Inspection: normal to inspection Palpation: soft, not firm and nontender Auscultation: normal bowel sounds Rectal Exam - female: deferred Objective Objective Clinical Data: Abnormal lab results 02/10/18 02/10/18 02/10/18 Range/Units 06:46 06:46 08:53 RBC 2.46 L (4.00-5.20) m/cumm Hgb 8.0 L (12.0-15.5) g/dL Hct 24.8 L (36.0-46.0) % MCV 100.8 H (80-95) fL RDW 15.4 H (11.7-14.6) % MPV 11.2 H (8.0-11.0) fL Absolute Lymphocytes 0.56 L (1.2-3.4) k/cumm Sodium 126 L (136-145) mmol/L Potassium 5.2 H D (3.5-5.1) mmol/L BUN 24 H 27 H (7-18) mg/dL Glucose 516 H* D 142 H D (70-100) mg/dL Calcium 6.6 L 8.4 L (8.5-10.1) mg/dL Vital Signs Temperature 36.8 C 02/10/18 15:51 Temperature Source Tympanic 02/10/18 15:51 Pulse 98 H 02/10/18 15:51 Pulse Rhythm Irregular 02/06/18 10:23 Pulse 96 H 02/10/18 15:40 Respiratory Rate 17 02/10/18 16:27 Respiratory Effort 02/10/18 12:00 Respiratory Depth Normal 02/10/18 15:51 Respiratory Pattern Normal 02/10/18 15:51 Blood Pressure 128/64 02/10/18 15:51 Blood Pressure Mean 85 02/10/18 15:51 Blood Pressure Position Left Lateral 02/10/18 15:51 Pulse Oximetry 98 02/10/18 16:27 Respiratory End-tidal CO2 34 02/10/18 16:27 Oxygen Delivery Method Mechanical Ventilator 02/10/18 15:51 Oxygen Flow Rate 0 02/10/18 15:51 Fraction of Inspired Oxygen (FIO2) 25 02/10/18 16:27 Pain Level 0 02/09/18 23:48 Comment 02/08/18 23:05 Intake & Output 02/09/18 02/10/18 02/10/18 18:59 06:59 18:59 Intake Total 1599.432 / 1413.157 4813.675 / 8250.470 9791.752 / 2480.752 Output Total 1700 / 1700 2210 / 2210 1425 / 1425 Balance -100.568 / -100.568 -233.325 / -682.398 1057.752 / 1055.752 Weight 48.9 kg 52.9 kg Intake: IV 1599.432 / 0002.029 9049 2480.752 / 2480.752 Oral 0 / 0 Output: Gastric Drainage 400 / 400 250 / 250 Left Nare 400 / 400 250 / 250 Urine 1700 / 1700 1810 / 1810 1175 / 1175 Other: Urine Color Yellow Yellow Yellow Urine Appearance Sediment Clear Clear Comment Mccall in place, draining adequate amounts of cloudy yellow urine Mccall catheter in place and draining yellow urine. small amt of leukocytes, trace protein, pH of 5, SG 1.005, Emptied for 700 cc Mccall patent and clear light yellow urine in bag. Gastric Occult Blood Left Nare Negative Negative Laboratory Results WBC 5.89 k/cumm (4.4-10.8) 02/10/18 06:46 RBC 2.46 m/cumm (4.00-5.20) L 02/10/18 06:46 Hgb 8.0 g/dL (12.0-15.5) L 02/10/18 06:46 Hct 24.8 % (36.0-46.0) L 02/10/18 06:46 MCV 100.8 fL (80-95) H 02/10/18 06:46 MCH 32.5 pg (27.0-33.0) 02/10/18 06:46 MCHC 32.3 g/dL (32.0-36.0) 02/10/18 06:46 RDW 15.4 % (11.7-14.6) H 02/10/18 06:46 Plt Count 162 x1000/uL (130-400) 02/10/18 06:46 MPV 11.2 fL (8.0-11.0) H 02/10/18 06:46 Immature Gran % 0.2 02/10/18 06:46 Neutrophils % 79.7 02/10/18 06:46 Lymphocytes % 9.5 02/10/18 06:46 Monocytes % 7.1 02/10/18 06:46 Eosinophils % 3.2 02/10/18 06:46 Basophils % 0.3 02/10/18 06:46 Absolute Neutrophils 4.69 k/cumm (1.2-6.7) 02/10/18 06:46 Absolute Lymphocytes 0.56 k/cumm (1.2-3.4) L 02/10/18 06:46 Absolute Monocytes 0.42 k/cumm (0.11-0.7) 02/10/18 06:46 Absolute Eosinophils 0.19 k/cumm (0.0-0.7) 02/10/18 06:46 Absolute Basophils 0.02 k/cumm (0.0-0.2) 02/10/18 06:46 PT 11.4 sec (9.3-10.8) H 02/08/18 06:40 INR 1.2 (1.0-3.5) 02/08/18 06:40 APTT 29.2 sec (21.0-31.4) 02/08/18 06:40 D-Dimer 1038 ng/mlFEU (<500) H 02/09/18 14:00 Sodium 138 mmol/L (136-145) D 02/10/18 08:53 Potassium 3.6 mmol/L (3.5-5.1) D 02/10/18 08:53 Chloride 106 mmol/L (98-107) 02/10/18 08:53 Carbon Dioxide 27.3 mmol/L (21.0-32.0) 02/10/18 08:53 Anion Gap 4.7 mmol/L (3-11) 02/10/18 08:53 BUN 27 mg/dL (7-18) H 02/10/18 08:53 Creatinine 0.83 mg/dL (0.55-1.02) 02/10/18 08:53 Estimated GFR/1.73 m2 >= 60.00 (mL/min/1.73m2) 02/10/18 08:53 Glucose 142 mg/dL (70-100) H D 02/10/18 08:53 Lactate 0.9 mmol/L (0.6-1.4) 02/09/18 14:00 Calcium 8.4 mg/dL (8.5-10.1) L 02/10/18 08:53 Phosphorus 2.1 mg/dL (2.6-4.7) L 02/09/18 14:00 Magnesium 1.6 mg/dL (1.8-2.4) L 02/09/18 14:00 Total Bilirubin 0.5 mg/dL (0.2-1.0) 02/08/18 06:40 AST 12 U/L (15-37) L 02/08/18 06:40 ALT 10 U/L (12-78) L 02/08/18 06:40 Alkaline Phosphatase 79 U/L (46-116) 02/08/18 06:40 Creatine Kinase 26 U/L (26-192) 02/06/18 12:20 Troponin I 0.03 ng/mL (0.00-0.06) 02/09/18 19:03 Total Protein 5.7 g/dL (6.4-8.2) L 02/08/18 06:40 Albumin 2.7 g/dL (3.4-5.0) L 02/08/18 06:40 TSH 0.11 uIU/mL (0.358-3.74) L 02/06/18 12:20 Free T4 1.28 ng/dL (0.76-1.46) 02/06/18 12:20 Urine Color Yellow (Yellow) 02/06/18 13:15 Urine Clarity Cloudy 02/06/18 13:15 Urine pH 5.5 (5-8) 02/06/18 13:15 Ur Specific [place] >= 1.030 (1.005-1.025) H 02/06/18 13:15 Urine Protein 30 mg/dL (Negative) H 02/06/18 13:15 Urine Ketones 15 mg/dL (Negative) H 02/06/18 13:15 Urine Blood Trace-intact (Negative) H 02/06/18 13:15 Urine Nitrite Negative (Negative) 02/06/18 13:15 Urine Bilirubin Negative (Negative) 02/06/18 13:15 Urine Urobilinogen 0.2 EU/dL (Up TO 0.2) 02/06/18 13:15 Ur Leukocyte Esterase Large (Negative) H 02/06/18 13:15 Urine RBC 0-2 (0-2) 02/06/18 13:15 Urine WBC >50 HPF (0-5) 02/06/18 13:15 Ur Epithelial Cells Few HPF (Negative) 02/06/18 13:15 Urine Crystals Negative HPF (Negative) 02/06/18 13:15 Urine Bacteria Many HPF (Negative) 02/06/18 13:15 Urine Casts Negative LPF (Negative) 02/06/18 13:15 Urine Mucus Negative (Negative) 02/06/18 13:15 Ur Culture Indicated? Yes 02/06/18 13:15 Urine Glucose Negative mg/dL (Negative) 02/06/18 13:15
[2018-02-10 16:53] LABS: Folate 11.6 ng/mL (8.6-20.0); Vitamin B12 973 pg/mL (193-986)
--- NOTE | 2018-02-10 17:41 | W.CARDCONSUL ---
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 She also has a history of hypertension and hyperlipidemia. Was admitted for elective PEG tube placement, found to have fever of unclear etiology, turned out to be related to a UTI, which is not treated with antibiotics. Preop evaluation was requested. She reports no active cardiac conditions. While her exercise capacity is mildly limited by her Parkinson's disease she denies shortness of breath at rest and with ADLs and also denies any other cardiac symptoms. Her EKG is completely normal. 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 Her LV and RV function is preserved. From a risk stratification standpoint PEG tube implantation is considered low risk surgery and the revised cardiac risk index yields a less than 1% perioperative risk for major cardiac events, this is probably slightly higher due to her overall reduced functional status, anemia and suboptimal nutritional status. However, there is no indication for further cardiac evaluation prior to surgery. In view of her tricuspid regurgitation, perioperative hypovolemia should be avoided. 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 Admitted for PEG tube implant. A preoperative cardiology evaluation was requested by Dr. Kong. She was initially admitted on 02/06/2018 for the elective PEG q. implant procedure, however, was found to have a fever of unclear etiology and the procedure was canceled. The initial suspicion was for a medication reaction, she was then found to have a bacterial UTI, now treated with antibiotics. She is on the OR schedule for PEG tube implant today. On evaluation today, she reports no acute cardiac issues or symptoms. Her activity is mainly limited by her severe Parkinson's disease with significant dyskinesia and tremors, difficult to assess for exertional dyspnea. She denies chest pain, shortness of breath at rest and with ADLs, palpitations, dizziness, syncope, orthopnea, PND, edema, bleeding, myalgia, arthralgia. Data review: EKG 02/09/2018: Sinus rhythm, 74/min, DE 132 ms, QRS 96 ms, QT 400 ms, QTC 444 ms. Normal EKG. Echocardiogram 02/06/2018: Normal LV size, mild basal septal hypertrophy, normal systolic function, LVEF 55-60%, possible mild anteroseptal hypokinesis, trivial AR, moderate MR, moderate to severe TR, normal RV, mildly elevated PA pressure, 46 mmHg. Chest x-ray 02/06/2018: No acute process. Consults Consult date: 02/09/18 Requesting physician: Alex Kong Review of Systems Review of Systems 10-system ROS was performed All systems reviewed & are unremarkable except as noted in HPI and below PFSH Family History Mother AMI (acute myocardial infarction) Father AMI (acute myocardial infarction) Medical History Dysphagia (Acute) Essential hypertension (Chronic) Hyperlipidemia (Chronic) Obesity (Chronic) Osteoarthritis (Chronic) Parkinson's disease (Chronic) Social History lives independently: No number of children: 2 number of grandchildren: 1 Smoking/Tobacco Use Status: Never alcohol intake: never substance use type: does not use Surgical History History of vaginal hysterectomy (Resolved) Exam Const General: cooperative, frail appearing and ill appearing Nutritional Appearance: thin Orientation: alert, awake and oriented x3 HENMT Head: normal to inspection and atraumatic Mouth: moist mucous membranes Eyes Conjunctivae: conjunctivae normal Sclera: sclerae normal Neck Neck: supple Carotids: normal carotid upstroke and no bruits Resp Effort & Inspection: normal respiratory effort Auscultation: clear to auscultation bilaterally Cardio Rate: regular rate Rhythm: regular rhythm Heart Sounds: S1 normal, no gallops, no murmurs and no rubs Bruits: no abdominal aortic bruits and no carotid bruits Pulses: radial pulses present and posterior tibial pulses present GI Inspection: non-distended Palpation: soft and nontender Auscultation: normal bowel sounds Skin General skin exam: dry skin Neuro General: alert, awake, oriented x3 and unable to assess gait Cognition: normal cognition Speech: abnormal speech Motor: tremor and muscle tone abnormal Extrem General: no clubbing, cyanosis or edema Results Labs : 02/10/18 06:46 02/10/18 08:53 Laboratory Results - last 24 hr 02/09/18 02/10/18 02/10/18 19:03 06:46 06:46 WBC 5.89 RBC 2.46 L Hgb 8.0 L Hct 24.8 L MCV 100.8 H MCH 32.5 MCHC 32.3 RDW 15.4 H Plt Count 162 MPV 11.2 H Immature Gran % 0.2 Neutrophils % 79.7 Lymphocytes % 9.5 Monocytes % 7.1 Eosinophils % 3.2 Basophils % 0.3 Absolute Neutrophils 4.69 Absolute Lymphocytes 0.56 L Absolute Monocytes 0.42 Absolute Eosinophils 0.19 Absolute Basophils 0.02 Sodium 126 L Potassium 5.2 H D Chloride 99 Carbon Dioxide 22.8 Anion Gap 4.2 BUN 24 H Creatinine 0.74 Estimated GFR/1.73 m2 >= 60.00 Glucose 516 H* D Calcium 6.6 L Troponin I 0.03 02/10/18 08:53 WBC RBC Hgb Hct MCV MCH MCHC RDW Plt Count MPV Immature Gran % Neutrophils % Lymphocytes % Monocytes % Eosinophils % Basophils % Absolute Neutrophils Absolute Lymphocytes Absolute Monocytes Absolute Eosinophils Absolute Basophils Sodium 138 D Potassium 3.6 D Chloride 106 Carbon Dioxide 27.3 Anion Gap 4.7 BUN 27 H Creatinine 0.83 Estimated GFR/1.73 m2 >= 60.00 Glucose 142 H D Calcium 8.4 L Troponin I Visit Medication and Allergies Active Medications Generic Name Dose Route Start Last Admin Trade Name Freq PRN Reason Stop Dose Admin Albuterol Sulfate 2.5 mg 02/06/18 11:48 Proventil Updraft UPD Q2H PRN PRN Albuterol/Ipratropium 3 ml 02/09/18 14:20 Duoneb Updraft UPD Q6H PRN PRN Amantadine HCl 200 mg 02/06/18 20:00 02/10/18 19:49 Symmetrel PO 200 mg BID TAE Administration Bacteriostatic Water 0 ml 02/06/18 06:00 02/10/18 12:57 IJ 03/07/18 23:59 10 ml DIRECTED PRN Administration Bisacodyl 10 mg 02/06/18 11:45 Dulcolax Suppository DE DAILY PRN PRN Carbidopa/Levodopa 1 tab 02/10/18 14:00 02/10/18 19:49 Sinemet-25/100 Tablet PO 1 tab TID TAE Administration Dimethicone/Zinc Oxide 0 gm 02/06/18 11:48 02/07/18 19:40 Charla Protect Cream TP 1 applic PRN PRN Administration Diphenhydramine HCl 25 mg 02/06/18 12:11 Benadryl Injection IVP Q6H PRN PRN Itching Docusate Sodium 100 mg 02/06/18 11:45 Colace PO BID PRN PRN Enoxaparin Sodium 40 mg 02/10/18 14:00 02/10/18 14:00 Lovenox SC 40 mg Q24H TAE Administration Potassium Chloride/Sodium Chloride 1,000 mls @ 50 mls/hr 02/06/18 12:00 02/10/18 16:20 Kcl 20meq/D5-0.45% Nacl IV 0 mls/hr INFUSION TAE Infusion Acetaminophen 1,000 mg in 100 mls @ 400 mls/hr 02/06/18 14:00 02/10/18 15:19 Ofirmev IVPB Infused Q8H TAE Infusion Ciprofloxacin 400 mg in 200 mls @ 200 mls/hr 02/07/18 08:00 02/10/18 19:50 Cipro I.V. IVPB 200 mls/hr Q12H TAE Administration Fat Emulsion 50 gm in 250 mls @ 31.25 mls/hr 02/07/18 08:30 02/10/18 17:55 Intralipid 20% IVPB Infused DAILY TAE Infusion Propofol 1,000 mg in 100 mls @ 36.675 mls/hr 02/09/18 14:30 02/10/18 18:09 Diprivan IVPB 84.86 mcg/kg/min INFUSION TAE 24.9 mls/hr Administration Protocol 125 MCG/KG/MIN Sodium Chloride 500 mls @ 0 mls/hr 02/09/18 20:31 Saline 500ml Bag IV PRN PRN As Directed Sodium/Potass/Mag/Kamlesh/Chlor/ 1,031 mls @ 85.917 mls/hr 02/09/18 22:00 02/10/18 09:58 Acetate 20 ml/ Multivitamins IV Infused 10 ml/ Chromium/Copper/ .BY DURATION TAE Infusion Manganese/Zinc 1 ml/ Amino Acids/Dextrose Sodium/Potass/Mag/Kamlesh/Chlor/ 1,020 mls @ 85 mls/hr 02/09/18 22:00 02/10/18 15:23 Acetate 20 ml/ Amino Acids/ IV 85 mls/hr Dextrose .BY DURATION TAE Infusion IV Miscellaneous Supplies 1 each 02/06/18 06:00 IV 03/07/18 23:59 DIRECTED TAE Insulin Aspart 0 units 02/07/18 12:00 02/10/18 18:12 Novolog Flexpen SC Not Given Q6H [facility] Protocol Melatonin 3 mg 02/06/18 11:45 PO HS PRN PRN Pantoprazole Sodium 40 mg 02/10/18 12:00 02/10/18 12:57 Protonix Injection IVP 40 mg Q24H TAE Administration Pt's Own Carbidopa- 1 each 02/06/18 20:00 02/10/18 10:51 Levodopa [Rytary Er] PO Not Given 48.75 Mg/195 Mg Cap TID TAE Ropinirole HCl 0.25 mg 02/06/18 20:00 02/10/18 19:48 Requip PO 0.25 mg TID TAE Administration Sodium Chloride 0 ml 02/06/18 06:00 02/10/18 19:50 Saline Flush 10 Ml Syringe IV 03/07/18 23:59 20 ml PRN PRN Administration Sodium Chloride 0 ml 02/06/18 06:00 Saline 10 Ml Vial IJ 03/07/18 23:59 DIRECTED PRN Sodium Chloride 500 ml 02/06/18 23:27 02/09/18 20:32 Saline 500ml Bag IV 500 ml DIRECTED PRN Administration Tolterodine Tartrate 2 mg 02/06/18 20:00 02/10/18 19:49 Detrol PO 2 mg BID TAE Administration Trimethobenzamide HCl 200 mg 02/06/18 16:47 Tigan IM QID PRN PRN Allergies environmental Allergy (Uncoded 02/06/18 10:04)
[2018-02-10 19:03] LABS: Iron 24 ug/dL (50-175); Total Iron Binding Capacity 218 ug/dL (250-450); Transferrin Sat 11 % (15-50)
[2018-02-11] VITALS (64 sets, daily range): BP systolic 79–128; BP diastolic 38–68; PULSE 77–195; RESP 12–23; TEMP 36.8–38.5; O2SAT 93–100
--- NOTE | 2018-02-11 01:44 | NUR.NOTE ---
no heart rates above 100 this shift. monitor recorded 110's and 190's from tremors and they can not be deleted from the charting Nursing Note:
[2018-02-11] MEDS: PROPOFOL 1,000 MG/100 ML BTL 11.7 MG IVPB (02:25)
[2018-02-11] MEDS: ACETAMINOPHEN 1,000 MG/100 ML BTL 400 MG IVPB ×3 (06:26→23:54)
[2018-02-11 07:19] LABS: Abs Immature Grans 0.02 k/cumm (0.0-0.09); Absolute Basophil Count 0.02 k/cumm (0.0-0.2); Absolute Eosinophil Count 0.22 k/cumm (0.0-0.7); Absolute Lymphocyte Count 0.83 k/cumm (1.2-3.4); Absolute Monocyte Count 0.55 k/cumm (0.11-0.7); Basophils % 0.2; Eosinophils % 2.6; HCT 27.3 % (36.0-46.0); HGB 8.3 g/dL (12.0-15.5); Immature Grans % 0.2; Lymphocytes % 9.9; Mean Corp. HGB Concentration 30.4 g/dL (32.0-36.0); Mean Corpuscular Hemoglobin 30.5 pg (27.0-33.0); Mean Corpuscular Volume 100.4 fL (80-95); Monocytes % 6.5; Neutrophils % 80.6; Platelet Count 176 x1000/uL (130-400); RBC 2.72 m/cumm (4.00-5.20); RBC Distribution Width 15.9 % (11.7-14.6); White Blood Cell Count 8.42 k/cumm (4.4-10.8)
[2018-02-11 07:21] LABS: Absolute Neutrophil Count 6.79 k/cumm (1.2-6.7)
[2018-02-11 07:30] LABS: Anion Gap 8.3 mmol/L (3-11); BUN 29 mg/dL (7-18); CO2 25.7 mmol/L (21.0-32.0); CREATININE 0.78 mg/dL (0.55-1.02); Calcium 8.2 mg/dL (8.5-10.1); Chloride 108 mmol/L (98-107); Glucose 127 mg/dL (70-100); Magnesium 1.6 mg/dL (1.8-2.4); Potassium 3.7 mmol/L (3.5-5.1); Sodium 142 mmol/L (136-145)
[2018-02-11] MEDS: CIPROFLOXACIN 400 MG/200 ML BAG 200 MG IVPB (07:50)
[2018-02-11] MEDS: Carbidopa 25/Levodopa 100 TAB PO ×3 (07:56→20:59)
[2018-02-11] MEDS: rOPINIRole 0.5 MG TAB 0.25 MG PO ×3 (08:09→20:59)
[2018-02-11] MEDS: Normal Saline Flush 10 ML SYR IV (08:41)
[2018-02-11 08:47] LABS: TSH 0.21 uIU/mL (0.358-3.74)
[2018-02-11] MEDS: PROPOFOL 1,000 MG/100 ML BTL 20.5 MG IVPB ×4 (08:58→23:57)
--- NOTE | 2018-02-11 09:15 | DI.RAD_ITS ---
SYMPTOM/DIAGNOSIS: FEVER PORTABLE AP CHEST: Comparison is made with 02/09/18. Heart size and pulmonary vasculature are within normal limits. The lungs are clear. No effusions or pneumothoraces are identified. There is an endotracheal tube, the tip is seen 4.5 cm. above the benjamin. The nasogastric tube passes into the stomach. IMPRESSION: No acute pulmonary process.
[2018-02-11] MEDS: MAGNESIUM SULFATE 2 GM/50 ML BAG IVPB (09:16)
--- NOTE | 2018-02-11 09:32 | DI.VRAD_ITS ---
EXAM: XR Chest, 1 View EXAM DATE/TIME: 02/11/2018 8:18 AM CLINICAL HISTORY: 52 years old, female; Fever. TECHNIQUE: XR of the chest, 1 view. COMPARISON: XR CHEST 02/09/2018 FINDINGS: Tubes, catheters and devices: There is an endotracheal tube present with tip approximately 4.5 cm above the benjamin. There is a nasogastric tube present, extending down into the stomach and off of the image. Lungs: No acute lung consolidation or pulmonary edema. Pleural space: No pleural effusion or pneumothorax. Heart/Mediastinum: The heart is not enlarged. The mediastinal contours are normal. Bones/joints: No acute osseous abnormality. IMPRESSION: No acute abnormality. Dictated and Authenticated by: Rito Moreno MD. Ordering:JUANPABLO NASH MD
[2018-02-11 10:34] LABS: Troponin I 0.02 ng/mL (0.00-0.06)
[2018-02-11] MEDS: DEXTROSE 5%-0.45% SALINE 1,000 ML 75 ML IV (10:53)
--- NOTE | 2018-02-11 12:15 | PDOC.CMPRO ---
- If Service Date Differs Date of service: 02/11/18 Time of Service: 12:15 Care Management Progress Note S/O: Jaylyn went to the OR this morning for PEG tube placement. She has been on TPN until the PEG tube can be used. Plan remains the same at this time. A: 52 y/o female admitted 02/06/18 for dysphagia. P: Jaylyn will return to [facility] once medically cleared. Transportation via [facility] or w/c van depending on presentation at time of DC.
--- NOTE | 2018-02-11 12:21 | CMPROGNOTE_ITS ---
- If Service Date Differs Date of service: 02/11/18 Time of Service: 12:15 Care Management Progress Note S/O: Jaylyn went to the OR this morning for PEG tube placement. She has been on TPN until the PEG tube can be used. Plan remains the same at this time. A: 52 y/o female admitted 02/06/18 for dysphagia. P: Jaylyn will return to [facility] once medically cleared. Transportation via [facility] or w/c van depending on presentation at time of DC.
[2018-02-11] MEDS: Pantoprazole 40 MG VIAL IVP (12:36)
[2018-02-11] MEDS: Water,Injection,Bacteriostatic 30 ML VIAL IJ (12:36)
--- NOTE | 2018-02-11 12:43 | PGE_ITS ---
Date of service: 02/11/18 Time of Service: 12:40 Assessment and Plan (1) Fever: Current visit: Yes Status: Acute Unknown source or etiology, patient has been afebrile since approximately midnight last night. Chest XRay without infiltrate. Urine Culture with Enterobacter Cloacae sensitive to current antibiotic regimen. Blood Cultures repeated and pending. Monitor vital signs and temps, with further work-up if repeat fever. (2) Abnormal EKG: Current visit: Yes Status: Acute EKG at 9:30 am performed by Anesthesia with NSR, diffuse ST Segment abnormalities that indicated potential acute infarct in the anteroseptal, inferior regions. Patient was immediately started on a heparin gtt, BB, ASA, and high potency statin therapy, with repeat troponins ordered. However, repeat EKG performed at 10:24 am was completely normal and without any changes from baseline or any signs of ischemia. Initial troponin was negative. All of the above medications were discontinued. Troponin will be cycled and patient will be monitored. 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 Will cycle troponins and monitor closely. (3) Respiratory distress, acute: Current visit: No Status: Acute Likely precipitated by inadvertant intubation of the right mainstem bronchus prior to planned PEG tube placement. Currently resolved. Patient will remain intubated and on mechanical ventilation, with reattempt at PEG tube placement this afternoon while patient is still intubated. Acute respiratory distress appears resolved. (4) UTI (urinary tract infection): Current visit: Yes Status: Acute Continue day #5 of ciprofloxacin. Urine Culture with Enterobacter Cloacae , sensitive to Fluoroquinolone therapy. (5) Parkinsons disease: Current visit: Yes Status: Chronic Continue home antiparkinsonian medications. (6) Dysphagia: Current visit: Yes Status: Chronic Patient continues on TPN while she awaits her PEG tube placement, tentatively scheduled for later this afternoon. (7) Anemia: Current visit: Yes Status: Chronic Appears to be anemia of chronic disease, with low iron/TIBC and elevated Ferritin. B12 and FA normal. TSH mildly low but checked during acute illness - FT4 ordered and pending, as is stool for occult blood. Current Hgb low but stable. Monitor closely. Also initiated PPI therapy. (8) DVT prophylaxis: Current visit: No Status: Chronic SC Lovenox. Subjective Patient reports: shortness of breath and other (Acute respiratory failure) Interval history since last seen: 52-year-old woman with a PMHx significant for severe PD with concurrent dysphasia and prior aspiration of food, weight loss, and malnutrition, admitted to [facility] on 02/06/2018 for a planned elective PEG tube placement. Ms. So is a resident at nearby health and rehab facility. She has significant dysphagia, and was admitted in September of this year following a significant aspiration event. She was admitted for percutaneous gastrostomy tube placement, but found to be febrile and with a UTI, and remains on antibiotic therapy. She was scheduled for PEG-tube placement on 02/09, but prior to the procedure in the OR, she had rapid onset acute hypoxic respiratory failure with transient cardiac arrest. This did not last longer than 1-2 minutes, and she quickly rebounded with no significant interventions. The cause of her transient respiratory distress appears to have been inadvertant intubation of the right mainstem bronchus. Overnight the patient was febrile. Blood Cultures were obtained, and a bed side CXR was obtained and negative for any acute abnormalities. This morning anesthesia noted potential changes on telemetry and ordered and EKG, which showed fairly diffuse ST segment changes. A stat repeat troponin was checked and normal, and a repeat EKG was performed approximately 20-30 minutes later which was also completely normal and back to baseline. Patient remains intubated this morning. She remains afebrile, and blood pressures have been reasonable. She is potentially undergoing PEG Tube placement later today. No other overnight events reported. Exam Const General: no acute distress, frail appearing and ill appearing chronically Nutritional Appearance: malnourished and thin Resp Auscultation: clear to auscultation bilaterally Cardio Rate: regular rate Heart Sounds: S1 normal, S2 normal, no gallops, no murmurs and no rubs GI Inspection: normal to inspection Palpation: soft Auscultation: normal bowel sounds Extrem General: no clubbing, cyanosis or edema Objective Objective Clinical Data: Abnormal lab results 02/10/18 02/10/18 02/11/18 Range/Units 16:00 16:00 06:35 RBC (4.00-5.20) m/cumm Hgb (12.0-15.5) g/dL Hct (36.0-46.0) % MCV (80-95) fL MCHC (32.0-36.0) g/dL RDW (11.7-14.6) % Absolute Neutrophils (1.2-6.7) k/cumm Absolute Lymphocytes (1.2-3.4) k/cumm Chloride 108 H (98-107) mmol/L BUN 29 H (7-18) mg/dL Glucose 127 H (70-100) mg/dL Calcium 8.2 L (8.5-10.1) mg/dL Magnesium 1.6 L (1.8-2.4) mg/dL Iron 24 L (50-175) ug/dL TIBC 218 L (250-450) ug/dL Transferrin % Sat 11 L (15-50) % Ferritin 464 H (8-388) ng/mL TSH (0.358-3.74) uIU/mL 02/11/18 02/11/18 Range/Units 06:35 06:35 RBC 2.72 L (4.00-5.20) m/cumm Hgb 8.3 L (12.0-15.5) g/dL Hct 27.3 L (36.0-46.0) % MCV 100.4 H (80-95) fL MCHC 30.4 L (32.0-36.0) g/dL RDW 15.9 H (11.7-14.6) % Absolute Neutrophils 6.79 H (1.2-6.7) k/cumm Absolute Lymphocytes 0.83 L (1.2-3.4) k/cumm Chloride (98-107) mmol/L BUN (7-18) mg/dL Glucose (70-100) mg/dL Calcium (8.5-10.1) mg/dL Magnesium (1.8-2.4) mg/dL Iron (50-175) ug/dL TIBC (250-450) ug/dL Transferrin % Sat (15-50) % Ferritin (8-388) ng/mL TSH 0.21 L (0.358-3.74) uIU/mL Vital Signs Temperature 37 C 02/11/18 04:00 Temperature Source Temporal Artery Scan 02/11/18 04:00 Pulse 91 H 02/11/18 06:00 Pulse Rhythm Irregular 02/06/18 10:23 Pulse 91 H 02/11/18 06:01 Respiratory Rate 12 02/11/18 10:27 Respiratory Effort 02/11/18 04:00 Respiratory Depth Normal 02/11/18 04:00 Respiratory Pattern Normal 02/11/18 00:15 Blood Pressure 120/59 L 02/11/18 06:00 Blood Pressure Mean 73 02/11/18 06:00 Blood Pressure Position Left Lateral 02/11/18 04:00 Pulse Oximetry 97 02/11/18 10:27 Respiratory End-tidal CO2 34 02/11/18 10:27 Oxygen Delivery Method Mechanical Ventilator 02/11/18 04:00 Oxygen Flow Rate 0 02/11/18 04:00 Fraction of Inspired Oxygen (FIO2) 25 02/11/18 10:27 Pain Level 0 02/11/18 00:15 Comment 02/10/18 23:32 Intake & Output 02/10/18 02/11/18 02/11/18 23:59 11:59 23:59 Intake Total 3016.386 / 3016.386 1313.068 / 1313.068 Output Total 2925 / 2925 600 / 600 Balance 91.386 / 91.386 713.068 / 713.068 Weight 53.9 kg Intake: IV 3016.386 / 3016.386 1313.068 / 1313.068 Output: Gastric Drainage 450 / 450 50 / 50 Left Nare 450 / 450 50 / 50 Urine 2475 / 2475 550 / 550 Other: Urine Color Pale Yellow Yellow Urine Appearance Clear Cloudy Comment Mccall intact and patent Mccall intact and patent draining dark yellow urine. Emptied for 300 cc. Moderate leukocytes, trace protein, pH of 5 and SG of 1.015 Gastric Occult Blood Left Nare Negative Negative Laboratory Results WBC 8.42 k/cumm (4.4-10.8) D 02/11/18 06:35 RBC 2.72 m/cumm (4.00-5.20) L 02/11/18 06:35 Hgb 8.3 g/dL (12.0-15.5) L 02/11/18 06:35 Hct 27.3 % (36.0-46.0) L 02/11/18 06:35 MCV 100.4 fL (80-95) H 02/11/18 06:35 MCH 30.5 pg (27.0-33.0) 02/11/18 06:35 MCHC 30.4 g/dL (32.0-36.0) L 02/11/18 06:35 RDW 15.9 % (11.7-14.6) H 02/11/18 06:35 Plt Count 176 x1000/uL (130-400) 02/11/18 06:35 MPV 11.0 fL (8.0-11.0) 02/11/18 06:35 Immature Gran % 0.2 02/11/18 06:35 Neutrophils % 80.6 02/11/18 06:35 Lymphocytes % 9.9 02/11/18 06:35 Monocytes % 6.5 02/11/18 06:35 Eosinophils % 2.6 02/11/18 06:35 Basophils % 0.2 02/11/18 06:35 Absolute Neutrophils 6.79 k/cumm (1.2-6.7) H 02/11/18 06:35 Absolute Lymphocytes 0.83 k/cumm (1.2-3.4) L 02/11/18 06:35 Absolute Monocytes 0.55 k/cumm (0.11-0.7) 02/11/18 06:35 Absolute Eosinophils 0.22 k/cumm (0.0-0.7) 02/11/18 06:35 Absolute Basophils 0.02 k/cumm (0.0-0.2) 02/11/18 06:35 PT 11.4 sec (9.3-10.8) H 02/08/18 06:40 INR 1.2 (1.0-3.5) 02/08/18 06:40 APTT 29.2 sec (21.0-31.4) 02/08/18 06:40 D-Dimer 1038 ng/mlFEU (<500) H 02/09/18 14:00 Sodium 142 mmol/L (136-145) 02/11/18 06:35 Potassium 3.7 mmol/L (3.5-5.1) 02/11/18 06:35 Chloride 108 mmol/L (98-107) H 02/11/18 06:35 Carbon Dioxide 25.7 mmol/L (21.0-32.0) 02/11/18 06:35 Anion Gap 8.3 mmol/L (3-11) 02/11/18 06:35 BUN 29 mg/dL (7-18) H 02/11/18 06:35 Creatinine 0.78 mg/dL (0.55-1.02) 02/11/18 06:35 Estimated GFR/1.73 m2 >= 60.00 (mL/min/1.73m2) 02/11/18 06:35 Glucose 127 mg/dL (70-100) H 02/11/18 06:35 Lactate 0.9 mmol/L (0.6-1.4) 02/09/18 14:00 Calcium 8.2 mg/dL (8.5-10.1) L 02/11/18 06:35 Phosphorus 2.1 mg/dL (2.6-4.7) L 02/09/18 14:00 Magnesium 1.6 mg/dL (1.8-2.4) L 02/11/18 06:35 Iron 24 ug/dL (50-175) L 02/10/18 16:00 TIBC 218 ug/dL (250-450) L 02/10/18 16:00 Transferrin % Sat 11 % (15-50) L 02/10/18 16:00 Ferritin 464 ng/mL (8-388) H 02/10/18 16:00 Total Bilirubin 0.5 mg/dL (0.2-1.0) 02/08/18 06:40 AST 12 U/L (15-37) L 02/08/18 06:40 ALT 10 U/L (12-78) L 02/08/18 06:40 Alkaline Phosphatase 79 U/L (46-116) 02/08/18 06:40 Creatine Kinase 26 U/L (26-192) 02/06/18 12:20 Troponin I 0.02 ng/mL (0.00-0.06) 02/11/18 10:10 Total Protein 5.7 g/dL (6.4-8.2) L 02/08/18 06:40 Albumin 2.7 g/dL (3.4-5.0) L 02/08/18 06:40 Vitamin B12 973 pg/mL (193-986) 02/10/18 16:00 Folate 11.6 ng/mL (8.6-20.0) 02/10/18 16:00 TSH 0.21 uIU/mL (0.358-3.74) L 02/11/18 06:35 Free T4 1.28 ng/dL (0.76-1.46) 02/06/18 12:20 Urine Color Yellow (Yellow) 02/06/18 13:15 Urine Clarity Cloudy 02/06/18 13:15 Urine pH 5.5 (5-8) 02/06/18 13:15 Ur Specific [place] >= 1.030 (1.005-1.025) H 02/06/18 13:15 Urine Protein 30 mg/dL (Negative) H 02/06/18 13:15 Urine Ketones 15 mg/dL (Negative) H 02/06/18 13:15 Urine Blood Trace-intact (Negative) H 02/06/18 13:15 Urine Nitrite Negative (Negative) 02/06/18 13:15 Urine Bilirubin Negative (Negative) 02/06/18 13:15 Urine Urobilinogen 0.2 EU/dL (Up TO 0.2) 02/06/18 13:15 Ur Leukocyte Esterase Large (Negative) H 02/06/18 13:15 Urine RBC 0-2 (0-2) 02/06/18 13:15 Urine WBC >50 HPF (0-5) 02/06/18 13:15 Ur Epithelial Cells Few HPF (Negative) 02/06/18 13:15 Urine Crystals Negative HPF (Negative) 02/06/18 13:15 Urine Bacteria Many HPF (Negative) 02/06/18 13:15 Urine Casts Negative LPF (Negative) 02/06/18 13:15 Urine Mucus Negative (Negative) 02/06/18 13:15 Ur Culture Indicated? Yes 02/06/18 13:15 Urine Glucose Negative mg/dL (Negative) 02/06/18 13:15 Objective Narrative Objective Narrative: CLINICAL HISTORY: 52 years old, female; Fever. TECHNIQUE: XR of the chest, 1 view. COMPARISON: XR CHEST 02/09/2018 FINDINGS: Tubes, catheters and devices: There is an endotracheal tube present with tip approximately 4.5 cm above the benjamin. There is a nasogastric tube present, extending down into the stomach and off of the image. Lungs: No acute lung consolidation or pulmonary edema. Pleural space: No pleural effusion or pneumothorax. Heart/Mediastinum: The heart is not enlarged. The mediastinal contours are normal. Bones/joints: No acute osseous abnormality. IMPRESSION: No acute abnormality.
--- NOTE | 2018-02-11 13:12 | W.PM.PROGNOT ---
Date of service: 02/11/18 Time of Service: 13:12 Subjective Patient reports: other (Intubated, stable over night) Exam Const General: comfortable and no acute distress Nutritional Appearance: malnourished and underweight Resp Auscultation: clear to auscultation bilaterally Cardio Jugular venous pressure: no JVD Palpation: normal PMI Rate: regular rate GI Inspection: non-distended Palpation: soft and nontender Auscultation: normal bowel sounds Objective Objective Clinical Data: Vital Signs Temperature 37 C 02/11/18 04:00 Temperature Source Temporal Artery Scan 02/11/18 04:00 Pulse 91 H 02/11/18 06:00 Pulse Rhythm Irregular 02/06/18 10:23 Pulse 91 H 02/11/18 06:01 Respiratory Rate 12 02/11/18 12:55 Respiratory Effort 02/11/18 04:00 Respiratory Depth Normal 02/11/18 04:00 Respiratory Pattern Normal 02/11/18 00:15 Blood Pressure 120/59 L 02/11/18 06:00 Blood Pressure Mean 73 02/11/18 06:00 Blood Pressure Position Left Lateral 02/11/18 04:00 Pulse Oximetry 96 02/11/18 12:55 Respiratory End-tidal CO2 34 02/11/18 12:55 Oxygen Delivery Method Mechanical Ventilator 02/11/18 04:00 Oxygen Flow Rate 0 02/11/18 04:00 Fraction of Inspired Oxygen (FIO2) 25 02/11/18 12:55 Pain Level 0 02/11/18 00:15 Comment 02/10/18 23:32 Intake & Output 02/10/18 02/11/18 02/11/18 18:59 06:59 18:59 Intake Total 2766.857 / 2766.857 1807.718 / 6543.696 3162.328 / 1222.328 Output Total 1425 / 1425 2100 / 2100 Balance 1341.857 / 1341.857 -292.282 / -106.345 6339.328 / 1222.328 Weight 53.9 kg Intake: IV 2766.857 / 2766.857 1807.718 / 2488.307 6990.328 / 1222.328 Oral 0 / 0 Output: Gastric Drainage 250 / 250 250 / 250 Left Nare 250 / 250 250 / 250 Urine 1175 / 1175 1850 / 1850 Other: Urine Color Yellow Yellow Urine Appearance Clear Cloudy Comment Mccall patent and clear light yellow urine in bag. Mccall intact and patent draining dark yellow urine. Emptied for 300 cc. Moderate leukocytes, trace protein, pH of 5 and SG of 1.015 Gastric Occult Blood Left Nare Negative Laboratory Results - last 24 hr 02/10/18 02/10/18 02/10/18 16:00 16:00 16:00 WBC RBC Hgb Hct MCV MCH MCHC RDW Plt Count MPV Immature Gran % Neutrophils % Lymphocytes % Monocytes % Eosinophils % Basophils % Absolute Neutrophils Absolute Lymphocytes Absolute Monocytes Absolute Eosinophils Absolute Basophils Sodium Potassium Chloride Carbon Dioxide Anion Gap BUN Creatinine Estimated GFR/1.73 m2 Glucose Calcium Magnesium Iron 24 L TIBC 218 L Transferrin % Sat 11 L Ferritin 464 H Troponin I Vitamin B12 973 Folate 11.6 TSH 02/11/18 02/11/18 02/11/18 06:35 06:35 06:35 WBC 8.42 D RBC 2.72 L Hgb 8.3 L Hct 27.3 L MCV 100.4 H MCH 30.5 MCHC 30.4 L RDW 15.9 H Plt Count 176 MPV 11.0 Immature Gran % 0.2 Neutrophils % 80.6 Lymphocytes % 9.9 Monocytes % 6.5 Eosinophils % 2.6 Basophils % 0.2 Absolute Neutrophils 6.79 H Absolute Lymphocytes 0.83 L Absolute Monocytes 0.55 Absolute Eosinophils 0.22 Absolute Basophils 0.02 Sodium 142 Potassium 3.7 Chloride 108 H Carbon Dioxide 25.7 Anion Gap 8.3 BUN 29 H Creatinine 0.78 Estimated GFR/1.73 m2 >= 60.00 Glucose 127 H Calcium 8.2 L Magnesium 1.6 L Iron TIBC Transferrin % Sat Ferritin Troponin I Vitamin B12 Folate TSH 0.21 L 02/11/18 10:10 WBC RBC Hgb Hct MCV MCH MCHC RDW Plt Count MPV Immature Gran % Neutrophils % Lymphocytes % Monocytes % Eosinophils % Basophils % Absolute Neutrophils Absolute Lymphocytes Absolute Monocytes Absolute Eosinophils Absolute Basophils Sodium Potassium Chloride Carbon Dioxide Anion Gap BUN Creatinine Estimated GFR/1.73 m2 Glucose Calcium Magnesium Iron TIBC Transferrin % Sat Ferritin Troponin I 0.02 Vitamin B12 Folate TSH
--- NOTE | 2018-02-11 13:27 | W.PM.PROGNOT ---
Date of service: 02/11/18 Time of Service: 13:28 Assessment and Plan (1) Abnormal EKG: Start date: 02/11/18 Start time: 13:33 Current visit: Yes Status: Acute Neurologic: Sedation will continue until G-tube placed Cardiac: Abnormal EKG seen this morning workup showed normal troponins, repeat of EKG at 30 minutes, showed a normal EKG Respiratory: Stable on current vent settings satting 98%, will attempt to wean after procedure Gastrointestinal: Ranitidine ordered for GI prophylaxis, will plan to place G-tube today Renal: Stable Nutrition//Fluids/electrolytes: Continue TPN with no changes, will start tube feeds later to Hematology/Oncology: Hemoglobin 8.2, appears to be anemia of chronic disease. Musculoskeletal: Patient receiving immediate release Sinemet for her Parkinson's Pyschiatric: Currently sedated Infectious Disease: Temperature overnight to 38 5, resolved without interventions, currently 37. Chest x-ray demonstrated no acute process, blood cultures obtained, white count normal, will recheck urine Lines/Tubes/Dressings: Plan for PEG tube placement today Disposition: Continue current care Subjective Patient reports: other (Intubated, stable overnight) Exam Const General: no acute distress Nutritional Appearance: malnourished and underweight Orientation: other (intubated) Resp Auscultation: clear to auscultation bilaterally Cardio Jugular venous pressure: no JVD Palpation: normal PMI Rate: regular rate GI Inspection: non-distended Palpation: soft and nontender Objective Objective Clinical Data: Vital Signs Temperature 37 C 02/11/18 04:00 Temperature Source Temporal Artery Scan 02/11/18 04:00 Pulse 91 H 02/11/18 06:00 Pulse Rhythm Irregular 02/06/18 10:23 Pulse 91 H 02/11/18 06:01 Respiratory Rate 12 02/11/18 12:55 Respiratory Effort 02/11/18 04:00 Respiratory Depth Normal 02/11/18 04:00 Respiratory Pattern Normal 02/11/18 00:15 Blood Pressure 120/59 L 02/11/18 06:00 Blood Pressure Mean 73 02/11/18 06:00 Blood Pressure Position Left Lateral 02/11/18 04:00 Pulse Oximetry 96 02/11/18 12:55 Respiratory End-tidal CO2 34 02/11/18 12:55 Oxygen Delivery Method Mechanical Ventilator 02/11/18 04:00 Oxygen Flow Rate 0 02/11/18 04:00 Fraction of Inspired Oxygen (FIO2) 25 02/11/18 12:55 Pain Level 0 02/11/18 00:15 Comment 02/10/18 23:32 Intake & Output 02/10/18 02/11/18 02/11/18 18:59 06:59 18:59 Intake Total 2766.857 / 2766.857 1807.718 / 3642.333 5887.328 / 1222.328 Output Total 1425 / 1425 2100 / 2100 Balance 1341.857 / 1341.857 -292.282 / -503.972 2695.328 / 1222.328 Weight 53.9 kg Intake: IV 2766.857 / 2766.857 1807.718 / 5424.813 2408.328 / 1222.328 Oral 0 / 0 Output: Gastric Drainage 250 / 250 250 / 250 Left Nare 250 / 250 250 / 250 Urine 1175 / 1175 1850 / 1850 Other: Urine Color Yellow Yellow Urine Appearance Clear Cloudy Comment Mccall patent and clear light yellow urine in bag. Mccall intact and patent draining dark yellow urine. Emptied for 300 cc. Moderate leukocytes, trace protein, pH of 5 and SG of 1.015 Gastric Occult Blood Left Nare Negative Laboratory Results - last 24 hr 02/10/18 02/10/18 02/10/18 16:00 16:00 16:00 WBC RBC Hgb Hct MCV MCH MCHC RDW Plt Count MPV Immature Gran % Neutrophils % Lymphocytes % Monocytes % Eosinophils % Basophils % Absolute Neutrophils Absolute Lymphocytes Absolute Monocytes Absolute Eosinophils Absolute Basophils Sodium Potassium Chloride Carbon Dioxide Anion Gap BUN Creatinine Estimated GFR/1.73 m2 Glucose Calcium Magnesium Iron 24 L TIBC 218 L Transferrin % Sat 11 L Ferritin 464 H Troponin I Vitamin B12 973 Folate 11.6 TSH 02/11/18 02/11/18 02/11/18 06:35 06:35 06:35 WBC 8.42 D RBC 2.72 L Hgb 8.3 L Hct 27.3 L MCV 100.4 H MCH 30.5 MCHC 30.4 L RDW 15.9 H Plt Count 176 MPV 11.0 Immature Gran % 0.2 Neutrophils % 80.6 Lymphocytes % 9.9 Monocytes % 6.5 Eosinophils % 2.6 Basophils % 0.2 Absolute Neutrophils 6.79 H Absolute Lymphocytes 0.83 L Absolute Monocytes 0.55 Absolute Eosinophils 0.22 Absolute Basophils 0.02 Sodium 142 Potassium 3.7 Chloride 108 H Carbon Dioxide 25.7 Anion Gap 8.3 BUN 29 H Creatinine 0.78 Estimated GFR/1.73 m2 >= 60.00 Glucose 127 H Calcium 8.2 L Magnesium 1.6 L Iron TIBC Transferrin % Sat Ferritin Troponin I Vitamin B12 Folate TSH 0.21 L 02/11/18 10:10 WBC RBC Hgb Hct MCV MCH MCHC RDW Plt Count MPV Immature Gran % Neutrophils % Lymphocytes % Monocytes % Eosinophils % Basophils % Absolute Neutrophils Absolute Lymphocytes Absolute Monocytes Absolute Eosinophils Absolute Basophils Sodium Potassium Chloride Carbon Dioxide Anion Gap BUN Creatinine Estimated GFR/1.73 m2 Glucose Calcium Magnesium Iron TIBC Transferrin % Sat Ferritin Troponin I 0.02 Vitamin B12 Folate TSH
[2018-02-11] MEDS: Enoxaparin 40 MG/0.4 ML SYR SC (13:36)
--- NOTE | 2018-02-11 13:39 | PGE_ITS ---
Date of service: 02/11/18 Time of Service: 13:28 Assessment and Plan (1) Abnormal EKG: Start date: 02/11/18 Start time: 13:33 Current visit: Yes Status: Acute Neurologic: Sedation will continue until G-tube placed Cardiac: Abnormal EKG seen this morning workup showed normal troponins, repeat of EKG at 30 minutes, showed a normal EKG Respiratory: Stable on current vent settings satting 98%, will attempt to wean after procedure Gastrointestinal: Ranitidine ordered for GI prophylaxis, will plan to place G- tube today Renal: Stable Nutrition//Fluids/electrolytes: Continue TPN with no changes, will start tube feeds later to Hematology/Oncology: Hemoglobin 8.2, appears to be anemia of chronic disease. Musculoskeletal: Patient receiving immediate release Sinemet for her Parkinson's Pyschiatric: Currently sedated Infectious Disease: Temperature overnight to 38 5, resolved without interventions, currently 37. Chest x-ray demonstrated no acute process, blood cultures obtained, white count normal, will recheck urine Lines/Tubes/Dressings: Plan for PEG tube placement today Disposition: Continue current care Subjective Patient reports: other (Intubated, stable overnight) Exam Const General: no acute distress Nutritional Appearance: malnourished and underweight Orientation: other (intubated) Resp Auscultation: clear to auscultation bilaterally Cardio Jugular venous pressure: no JVD Palpation: normal PMI Rate: regular rate GI Inspection: non-distended Palpation: soft and nontender Objective Objective Clinical Data: Vital Signs Temperature 37 C 02/11/18 04:00 Temperature Source Temporal Artery Scan 02/11/18 04:00 Pulse 91 H 02/11/18 06:00 Pulse Rhythm Irregular 02/06/18 10:23 Pulse 91 H 02/11/18 06:01 Respiratory Rate 12 02/11/18 12:55 Respiratory Effort 02/11/18 04:00 Respiratory Depth Normal 02/11/18 04:00 Respiratory Pattern Normal 02/11/18 00:15 Blood Pressure 120/59 L 02/11/18 06:00 Blood Pressure Mean 73 02/11/18 06:00 Blood Pressure Position Left Lateral 02/11/18 04:00 Pulse Oximetry 96 02/11/18 12:55 Respiratory End-tidal CO2 34 02/11/18 12:55 Oxygen Delivery Method Mechanical Ventilator 02/11/18 04:00 Oxygen Flow Rate 0 02/11/18 04:00 Fraction of Inspired Oxygen (FIO2) 25 02/11/18 12:55 Pain Level 0 02/11/18 00:15 Comment 02/10/18 23:32 Intake & Output 02/10/18 02/11/18 02/11/18 18:59 06:59 18:59 Intake Total 2766.857 / 2766.857 1807.718 / 6293.154 1505.328 / 1222.328 Output Total 1425 / 1425 2100 / 2100 Balance 1341.857 / 1341.857 -292.282 / -142.961 1290.328 / 1222.328 Weight 53.9 kg Intake: IV 2766.857 / 2766.857 1807.718 / 7925.517 5021.328 / 1222.328 Oral 0 / 0 Output: Gastric Drainage 250 / 250 250 / 250 Left Nare 250 / 250 250 / 250 Urine 1175 / 1175 1850 / 1850 Other: Urine Color Yellow Yellow Urine Appearance Clear Cloudy Comment Mccall patent and clear light yellow urine in bag. Mccall intact and patent draining dark yellow urine. Emptied for 300 cc. Moderate leukocytes, trace protein, pH of 5 and SG of 1.015 Gastric Occult Blood Left Nare Negative Laboratory Results - last 24 hr 02/10/18 02/10/18 02/10/18 16:00 16:00 16:00 WBC RBC Hgb Hct MCV MCH MCHC RDW Plt Count MPV Immature Gran % Neutrophils % Lymphocytes % Monocytes % Eosinophils % Basophils % Absolute Neutrophils Absolute Lymphocytes Absolute Monocytes Absolute Eosinophils Absolute Basophils Sodium Potassium Chloride Carbon Dioxide Anion Gap BUN Creatinine Estimated GFR/1.73 m2 Glucose Calcium Magnesium Iron 24 L TIBC 218 L Transferrin % Sat 11 L Ferritin 464 H Troponin I Vitamin B12 973 Folate 11.6 TSH 02/11/18 02/11/18 02/11/18 06:35 06:35 06:35 WBC 8.42 D RBC 2.72 L Hgb 8.3 L Hct 27.3 L MCV 100.4 H MCH 30.5 MCHC 30.4 L RDW 15.9 H Plt Count 176 MPV 11.0 Immature Gran % 0.2 Neutrophils % 80.6 Lymphocytes % 9.9 Monocytes % 6.5 Eosinophils % 2.6 Basophils % 0.2 Absolute Neutrophils 6.79 H Absolute Lymphocytes 0.83 L Absolute Monocytes 0.55 Absolute Eosinophils 0.22 Absolute Basophils 0.02 Sodium 142 Potassium 3.7 Chloride 108 H Carbon Dioxide 25.7 Anion Gap 8.3 BUN 29 H Creatinine 0.78 Estimated GFR/1.73 m2 >= 60.00 Glucose 127 H Calcium 8.2 L Magnesium 1.6 L Iron TIBC Transferrin % Sat Ferritin Troponin I Vitamin B12 Folate TSH 0.21 L 02/11/18 10:10 WBC RBC Hgb Hct MCV MCH MCHC RDW Plt Count MPV Immature Gran % Neutrophils % Lymphocytes % Monocytes % Eosinophils % Basophils % Absolute Neutrophils Absolute Lymphocytes Absolute Monocytes Absolute Eosinophils Absolute Basophils Sodium Potassium Chloride Carbon Dioxide Anion Gap BUN Creatinine Estimated GFR/1.73 m2 Glucose Calcium Magnesium Iron TIBC Transferrin % Sat Ferritin Troponin I 0.02 Vitamin B12 Folate TSH
[2018-02-11 14:03] LABS: Troponin I < 0.02 ng/mL (0.00-0.06)
[2018-02-11] MEDS: Bupivacaine LIPOSOME/PF 133 MG/10 ML VIAL IJ (15:35)
--- NOTE | 2018-02-11 16:09 | ROE_ITS ---
Date of service: 02/11/18 Time of Service: 15:48 Operative Note DATE OF PROCEDURE: 02/11/18 PRE-OP DIAGNOSIS: Dysphagia POST-OP DIAGNOSIS: same PROCEDURE: EGD with percutaneous gastrostomy tube placement SURGEON: Tony Banegas PRINTED CIRCUIT BOARD DESIGNER: Janiya Lee ANESTHESIA: GETA (Susan Powell CRNA; ASA 3e Mallampati 3) and local (1% lidocaine , 1.3% exparel) ESTIMATED BLOOD LOSS: 1 PATHOLOGY: none sent Patient was transported to: ICU Patient's condition: stable Indications: 52-year-old woman with Parkinson's disease. She has a severe tremor and some dementia. She is lost over 100 pounds in the last year, and has been unable to keep anything down for several weeks. She has become severely malnourished and her BMI is 17. She was transferred over from [facility] for PEG tube placement. On her original presentation she was found to be febrile to 39?C. Workup for this demonstrated a urinary tract infection for which she has been treated. She was to have the PEG tube placed late in the week, but had a respiratory arrest prior to the procedure believed to be due to right mainstem intubation. She is now hemodynamically stable no sequelae from her respiratory arrest, and afebrile she presents ready for G-tube placement. Findings: In examining the epigastric intestinal tract from the oropharynx to the third portion of duodenum no abnormalities were noted and the G-tube was subsequently placed under endoscopic guidance Procedure Description: The patient was brought from the ICU to the operating room. Her identification was reviewed, consents have been obtained from her brother. She was transferred from her bed to the operating table all bony prominences were padded. Appropriate monitoring was applied, and sedation continued. An appropriate timeout was taken reviewing the patient's identification allergies medications procedure fire risk. I then advanced the Olympus real stiffness endoscope from the oropharynx to the third portion of the duodenum without difficulty. The scope was then withdrawn in circumferential manner from the duodenum back into the stomach and duodenum appear grossly normal as did the stomach viewing the gastric antrum and on retroflexion reviewing the lesser, and greater curvatures, anterior, and posterior surfaces of the stomach, and fundus of the stomach. The patient's abdomen was prepped with ChloraPrep and block draped in standard sterile fashion. I used the endoscope to illuminate the anterior wall of the stomach, this transilluminated onto the skin. Pressure was applied to the point of illumination on the skin to confirm positioning just over the stomach. Local was then infiltrated in a wheel at the point of maximum illumination. A stab incision was made, and and a insertion needle with introducer was advanced through the stab incision into the stomach where I can visualize it directly piercing the stomach. While this was taking place I advanced a snare into the stomach. Once the introducer sheath was in the abdomen the introducer needle was removed I placed the snare over the introducer. A looped wire is passed through the introducer to the point where I could snare this. I then withdrew the snared wire and endoscope from the upper gastrointestinal tract. I then took the looped wire and wrapped this around the passer end of the percutaneous gastrostomy tubing. The gastrostomy tube was then pulled down through the esophagus through the stomach through the anterior abdominal wall. I follow the passage of the gastrostomy tube using the endoscope until the gastrostomy tube and fully transverse the stomach and abdominal wall to the point where the gastrostomy tube button was up against the gastric wall. The passing portion of the tubing with attached wire was divided sharply. The circular Platten was passed over the tubing down to the skin of the anterior abdominal wall inspected the PEG tube button could easily spin, I rechecked the flatten to make sure there is no laxity. Once I satisfied with this I removed the endoscope. The plan was sewn into place with 3-0 Prolene suture with simple sutures for fixation. The plan was then cinched in place around the gastrostomy tube the remainder of the gastric tube garments were placed and the tube was connected to drainage gravity drainage. There are no complications during the procedure. The patient tolerated very well. She was returned to the ICU in good condition.
[2018-02-11 18:40] LABS: Troponin I < 0.02 ng/mL (0.00-0.06)
[2018-02-12] VITALS (41 sets, daily range): BP systolic 94–123; BP diastolic 34–59; PULSE 81–98; RESP 11–24; TEMP 36.6–37; O2SAT 97–100
[2018-02-12] MEDS: PROPOFOL 1,000 MG/100 ML BTL 11.698 MG IVPB (06:20)
[2018-02-12] MEDS: ACETAMINOPHEN 1,000 MG/100 ML BTL 400 MG IVPB ×3 (06:42→23:11)
[2018-02-12 07:28] LABS: Abs Immature Grans 0.02 k/cumm (0.0-0.09); Absolute Basophil Count 0.01 k/cumm (0.0-0.2); Absolute Eosinophil Count 0.16 k/cumm (0.0-0.7); Absolute Lymphocyte Count 0.58 k/cumm (1.2-3.4); Absolute Monocyte Count 0.48 k/cumm (0.11-0.7); Absolute Neutrophil Count 5.31 k/cumm (1.2-6.7); Basophils % 0.2; Eosinophils % 2.4; HCT 25.6 % (36.0-46.0); HGB 7.5 g/dL (12.0-15.5); Immature Grans % 0.3; Lymphocytes % 8.8; Mean Corp. HGB Concentration 29.3 g/dL (32.0-36.0); Mean Corpuscular Hemoglobin 29.5 pg (27.0-33.0); Mean Corpuscular Volume 100.8 fL (80-95); Mean Platelet Volume 10.9 fL (8.0-11.0); Monocytes % 7.3; Platelet Count 188 x1000/uL (130-400); RBC 2.54 m/cumm (4.00-5.20); RBC Distribution Width 16.4 % (11.7-14.6); White Blood Cell Count 6.56 k/cumm (4.4-10.8)
--- NOTE | 2018-02-12 07:31 | MERGE_ITS ---
*[facility]* *[facility]* [address] [place] [address] Date of study: 02/12/2018 Transthoracic Echocardiography M-mode, complete 2D, complete spectral Doppler, and color Doppler *STUDY CONCLUSIONS* Summary: 1. Left ventricle: Systolic function was normal. The estimated ejection fraction was 60-65%. Moderate hypokinesis of the septal myocardium. There was no evidence of elevated ventricular filling pressure by Doppler parameters. 2. Right ventricle: The cavity size was normal. Wall thickness was normal. Systolic function was normal. 3. Pulmonary arteries: Systolic pressure could not be accurately estimated. *PATIENT PRESENTATION* Height: 160cm ((63in) ) S/D Pressure: 108 / 45 Weight: 53.5kg ((117.8lb) ) BSA: 1.54m^2 Test start time: 07:35 AM. Test stop time: 08:25 AM. PERFORMING Unknown ORDERING Dick Nicole REFERRING Dick Nicole PERFORMING [facility] RECRUITING COORDINATOR Leslee Bishop *PROCEDURE DATA* Procedure information: This study was interpreted by [facility]. Pertinent images and digital data are archived for permanent storage and are available for subsequent review. Comparison was made to the study of 01/05/2018. Study status: Routine. Transthoracic echocardiography. M-mode, complete 2D, complete spectral Doppler, and color Doppler. A Transthoracic Echocardiogram was performed. Scanning was performed from the parasternal, apical, subcostal, and suprasternal notch acoustic windows. Images were obtained using an [employer] SC 2000 cardiac ultrasound machine. Image quality was adequate. Study completion: The patient tolerated the procedure well. History: PMH: EKG Changes. *CARDIAC ANATOMY* Left ventricle: Systolic function was normal. The estimated ejection fraction was 60-65%. Regional wall motion abnormalities: Moderate hypokinesis of the septal myocardium. The study is not technically sufficient to allow evaluation of LV diastolic function. There was no evidence of elevated ventricular filling pressure by Doppler parameters. Aortic valve: Doppler: There was no stenosis. There was no regurgitation. VTI ratio of LVOT to aortic valve: 0.78. Peak velocity ratio of LVOT to aortic valve: 0.75. Mean velocity ratio of LVOT to aortic valve: 0.69. Mean gradient (S): 4.2mm Hg. Peak gradient (S): 7.6mm Hg. Aorta: Aortic root: The aortic root was normal in size. Mitral valve: Doppler: There was no evidence for stenosis. There was no significant regurgitation. Valve area by pressure half-time: 2.5cm^2. Indexed valve area by pressure half-time: 1.6cm^2/m^2. Peak gradient (D): 2.1mm Hg. Left atrium: Poorly visualized. Atrial septum: Poorly visualized. Right ventricle: The cavity size was normal. Wall thickness was normal. Systolic function was normal. Pulmonic valve: Doppler: There was no evidence for stenosis. There was no significant regurgitation. Peak gradient (S): 2.4mm Hg. Tricuspid valve: Doppler: There was mild regurgitation. Pulmonary artery: Poorly visualized. Systolic pressure could not be accurately estimated. Right atrium: Poorly visualized. Pericardium: There was no significant pericardial effusion. Systemic veins: Inferior vena cava: Poorly visualized. Measurements Left ventricle Value 01/05/2018 Reference LV ID, ED, PLAX 4.1 cm 5.3 3.5 - 6.0 LV ID, ES, PLAX 2.5 cm 4.1 2.1 - 4.0 LV PW thickness, ED, PLAX 0.9 cm 0.8 --------- LV end-diastolic volume, 1-p 100 ml 99 --------- A2C LV ejection fraction, 1-p A2C 58 % 58 --------- LV end-diastolic volume, 1-p 93 ml 109 --------- A4C LV ejection fraction, 1-p A4C 50 % 58 --------- LV e', lateral 0.112 m/sec 0.122 --------- LV E/e', lateral 6 5 --------- LV e', medial 0.129 m/sec 0.107 --------- LV E/e', medial 6 6 --------- LV e', average 0.121 m/sec 0.114 --------- LV E/e', average 6 6 --------- Ventricular septum Value 01/05/2018 Reference IVS thickness, ED, PLAX 0.9 cm 0.6 --------- LVOT Value 01/05/2018 Reference LVOT peak velocity, S 1.03 m/sec 0.97 --------- LVOT mean velocity, S 0.66 m/sec 0.59 --------- LVOT VTI, S 18.0 cm 19.8 --------- LVOT peak gradient, S 4.2 mm Hg 3.8 --------- LVOT mean gradient, S 2.1 mm Hg 1.7 --------- Aortic valve Value 01/05/2018 Reference Aortic valve peak velocity, S 1.4 m/sec 1.5 --------- Aortic valve mean velocity, S 0.96 m/sec 1.01 --------- Aortic valve VTI, S 22.9 cm 32.0 --------- Aortic mean gradient, S 4.2 mm Hg 4.5 --------- Aortic peak gradient, S 7.6 mm Hg 8.6 --------- VTI ratio, LVOT/AV 0.78 0.62 --------- Velocity ratio, peak, LVOT/AV 0.75 0.66 --------- Velocity ratio, mean, LVOT/AV 0.69 0.58 --------- Aorta Value 01/05/2018 Reference Aortic root ID, ED 2.7 cm 2.8 --------- Left atrium Value 01/05/2018 Reference LA ID, A-P, ES 3.0 cm 2.8 --------- LA ID/bsa, A-P 1.9 cm/m^2 1.8 <=2.2 LA/aortic root ratio 1.1 1.01 --------- Mitral valve Value 01/05/2018 Reference Mitral E-wave peak velocity 0.73 m/sec 0.66 --------- Mitral A-wave peak velocity 0.57 m/sec 0.51 --------- Mitral deceleration time (H) 301 ms 178 150 - 230 Mitral pressure half-time 87 ms 52 --------- Mitral peak gradient, D 2.1 mm Hg --------- Mitral E/A ratio, peak 1.28 1.29 --------- Mitral valve area, PHT, DP 2.5 cm^2 4.3 --------- Pulmonic valve Value 01/05/2018 Reference Pulmonic peak gradient, S 2.4 mm Hg --------- Legend: (L) and (H) chris values outside specified reference range. I have personally reviewed the images and have reviewed and edited the reported findings. Electronically signed by Brennon Murphy MD 02/12/2018 11:55
[2018-02-12 07:43] LABS: Anion Gap 8.5 mmol/L (3-11); BUN 24 mg/dL (7-18); CO2 25.5 mmol/L (21.0-32.0); CREATININE 0.62 mg/dL (0.55-1.02); Calcium 8.1 mg/dL (8.5-10.1); Chloride 107 mmol/L (98-107); FREE T4 1.27 ng/dL (0.76-1.46); Glucose 135 mg/dL (70-100); Magnesium 1.9 mg/dL (1.8-2.4); Potassium 3.9 mmol/L (3.5-5.1); Sodium 141 mmol/L (136-145)
[2018-02-12] MEDS: rOPINIRole 0.5 MG TAB 0.25 MG PO ×3 (07:49→19:28)
[2018-02-12] MEDS: Carbidopa 25/Levodopa 100 TAB PO ×3 (07:49→19:28)
--- NOTE | 2018-02-12 08:53 | CMPROGNOTE_ITS ---
- If Service Date Differs Date of service: 02/12/18 Time of Service: 08:52 Care Management Progress Note S/O: Jaylyn remains intubated in the ICU at this time. CM met with Dr. Banegas this morning whom states that weaning trial is being done at this time with hopes of extubation today. Dr. Banegas states that Jaylyn will most likely need A few more days in the hospital as the PEG tube is being used at this time though slowly. A: 52 y/o female admitted 02/06/18 for dysphagia. P: Jaylyn will return to [facility] once medically cleared. Transportation via [facility] or w/c van depending on presentation at time of DC.
--- NOTE | 2018-02-12 09:54 | PGE_ITS ---
Date of service: 02/12/18 Time of Service: 09:36 Assessment and Plan (1) Dysphagia: Current visit: Yes Status: Chronic Neurologic: Sedated on propofol overnight, weaning propofol this morning with plan for extubation. Will continue Tylenol for pain may add small dose of narcotic or NSAID if necessary. Cardiac: Hemodynamically stable, remains on telemetry will DC once extubated. Respiratory: Extubation plan today Gastrointestinal: PEG tube placed, tube feeds started slow progression to goal due to high residuals. Cut Renal: Creatinine 0.62, good urine output will repeat urine culture Nutrition//Fluids/electrolytes: We will continue TPN until tube feeds at goal. Tube feed progression slow due to high residuals, will start baseline at 15 mL/ hour and increase by 10 every 4 hours, so long as the residuals of greater than 100 mL. Hematology/Oncology: Hemoglobin 7.5, we will continue to watch though this could be due to frequent phlebotomy and delusional effect. Plan for transfusion , if drops below 7 hemoglobin. Musculoskeletal: Continue PT and frequent turning per protocol. Parkinsonian medications all restarted Pyschiatric: Stable, though, patient is anxious at baseline. Infectious Disease: Afebrile, white count normal. Lines/Tubes/Dressings: PEG tube in place, midline functioning well question trading out for PICC line. Disposition: Continue current care, plan for extubation today Subjective Interval history since last seen: PEG tube placed over weekend, tube feeds started, remained intubated, Hemodynamically stable. Respiratory stable. Exam Const General: no acute distress Nutritional Appearance: malnourished and underweight Orientation: obtunded (sedated on propafol) Neck Neck: supple Chest Chest: normal inspection of the chest Resp Auscultation: clear to auscultation bilaterally (ventilatro sounds), no crackles , no rales, rhonchi and no wheezes Cardio Jugular venous pressure: no JVD Rate: regular rate Rhythm: regular rhythm GI Inspection: non-distended and incision (g-tube in place ) Palpation: soft Auscultation: normal bowel sounds Rectal Exam - female: deferred Objective Objective Clinical Data: Vital Signs Temperature 36.6 C 02/12/18 07:50 Temperature Source Temporal Artery Scan 02/12/18 07:50 Pulse 85 02/12/18 08:36 Pulse Rhythm Irregular 02/06/18 10:23 Pulse 85 02/12/18 08:01 Respiratory Rate 20 02/12/18 08:36 Respiratory Effort 02/12/18 07:50 Respiratory Depth Normal 02/12/18 07:50 Respiratory Pattern Normal 02/12/18 07:50 Blood Pressure 99/44 L 02/12/18 08:36 Blood Pressure Mean 55 02/12/18 08:01 Blood Pressure Position Left Lateral 02/12/18 07:50 Pulse Oximetry 100 02/12/18 08:36 Respiratory End-tidal CO2 35 02/12/18 08:36 Oxygen Delivery Method Mechanical Ventilator 02/12/18 07:50 Oxygen Flow Rate 0 02/12/18 07:50 Fraction of Inspired Oxygen (FIO2) 25 02/12/18 08:36 Pain Level 0 02/11/18 23:45 Comment 02/10/18 23:32 Intake & Output 02/11/18 02/12/18 02/12/18 18:59 06:59 18:59 Intake Total 2260.645 / 2260.645 1973.923 / 1973.923 168.459 / 168.459 Output Total 775 / 775 2190 / 2190 120 / 120 Balance 1485.645 / 1485.645 -216.077 / -216.077 48.459 / 48.459 Weight 56.8 kg Intake: IV 2260.645 / 2260.645 1688.923 / 1688.923 48.459 / 48.459 Intake, Tube Feeding Amount 285 / 285 120 / 120 Output: Gastric Drainage 100 / 100 Left Nare 100 / 100 Urine 675 / 675 1800 / 1800 Output, Residual 390 / 390 120 / 120 Other: Urine Color Pale Yellow Yellow Urine Appearance Cloudy Clear Comment marks patent Marks intact and patent. SG 1.015, pH 5. Marks intact and patent. Gastric Occult Blood Left Nare Negative Laboratory Results - last 24 hr 02/11/18 02/11/18 02/11/18 10:10 13:40 18:15 WBC RBC Hgb Hct MCV MCH MCHC RDW Plt Count MPV Immature Gran % Neutrophils % Lymphocytes % Monocytes % Eosinophils % Basophils % Absolute Neutrophils Absolute Lymphocytes Absolute Monocytes Absolute Eosinophils Absolute Basophils Sodium Potassium Chloride Carbon Dioxide Anion Gap BUN Creatinine Estimated GFR/1.73 m2 Glucose Calcium Magnesium Troponin I 0.02 < 0.02 < 0.02 Free T4 02/12/18 02/12/18 02/12/18 06:15 06:15 06:15 WBC 6.56 RBC 2.54 L Hgb 7.5 L Hct 25.6 L MCV 100.8 H MCH 29.5 MCHC 29.3 L RDW 16.4 H Plt Count 188 MPV 10.9 Immature Gran % 0.3 Neutrophils % 81.0 Lymphocytes % 8.8 Monocytes % 7.3 Eosinophils % 2.4 Basophils % 0.2 Absolute Neutrophils 5.31 Absolute Lymphocytes 0.58 L Absolute Monocytes 0.48 Absolute Eosinophils 0.16 Absolute Basophils 0.01 Sodium 141 Potassium 3.9 Chloride 107 Carbon Dioxide 25.5 Anion Gap 8.5 BUN 24 H Creatinine 0.62 Estimated GFR/1.73 m2 >= 60.00 Glucose 135 H Calcium 8.1 L Magnesium 1.9 Troponin I Free T4 1.27
[2018-02-12] MEDS: Normal Saline Flush 10 ML SYR IV ×3 (10:57→23:12)
--- NOTE | 2018-02-12 12:03 | W.PM.PROGNOT ---
Date of service: 02/12/18 Time of Service: 12:04 Assessment and Plan (1) Fever: Current visit: Yes Status: Acute Unknown source or etiology, patient has been afebrile since approximately midnight 2 nights ago. Chest XRay without infiltrate. Urine Culture with Enterobacter Cloacae sensitive to current antibiotic regimen. Blood Cultures repeated and with no growth X24 hours. Monitor vital signs and temps, with further work-up if repeat fever. (2) Abnormal EKG: Current visit: Yes Status: Resolved EKG at 9:30 am on 02/11 performed by Anesthesia with NSR, diffuse ST Segment abnormalities that indicated potential acute infarct in the anteroseptal, inferior regions. Patient was immediately started on a heparin gtt, BB, ASA, and high potency statin therapy, with repeat troponins ordered. However, repeat EKG performed at 10:24 am was completely normal and without any changes from baseline or any signs of ischemia. Initial and follow-up troponins were negative. All of the above medications were discontinued. 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 Asked cardiology for input as well. (3) Respiratory distress, acute: Current visit: No Status: Acute Resolved. Likely precipitated by inadvertant intubation of the right mainstem bronchus prior to planned PEG tube placement. Currently resolved. Patient was maintained on mechanical ventilation, with PEG tube placed on 02/11. Now successfully extubated. (4) UTI (urinary tract infection): Current visit: Yes Status: Acute Continue day #6 of ciprofloxacin. Urine Culture with Enterobacter Cloacae, sensitive to Fluoroquinolone therapy. (5) Parkinsons disease: Current visit: Yes Status: Chronic Continue home antiparkinsonian medications. (6) Dysphagia: Current visit: Yes Status: Chronic Underwent successful PEG tube placement 02/11. TF's as per surgery. (7) Anemia: Current visit: Yes Status: Chronic Appears to be anemia of chronic disease, with low iron/TIBC and elevated Ferritin. B12 and FA normal. TSH mildly low but checked during acute illness - FT4 checked and normal. Stool for occult blood ordered Current Hgb low with drop post PEG tube. Monitor closely. Also initiated PPI therapy. (8) DVT prophylaxis: Current visit: No Status: Chronic SC Lovenox. Subjective Patient reports: shortness of breath and other (Acute respiratory failure) Interval history since last seen: 52-year-old woman with a PMHx significant for severe PD with concurrent dysphasia and prior aspiration of food, weight loss, and malnutrition, admitted to [facility] on 02/06/2018 for a planned elective PEG tube placement. Ms. So is a resident at nearby health and rehab facility. She has significant dysphagia, and was admitted in September of this year following a significant aspiration event. She was admitted for percutaneous gastrostomy tube placement, but found to be febrile and with a UTI, and remains on antibiotic therapy. She was scheduled for PEG-tube placement on 02/09, but prior to the procedure in the OR, she had rapid onset acute hypoxic respiratory failure with transient cardiac arrest. This did not last longer than 1-2 minutes, and she quickly rebounded with no significant interventions. The cause of her transient respiratory distress appears to have been inadvertant intubation of the right mainstem bronchus. The patient also had fevers 2 nights ago. Blood Cultures were obtained, and a bed side CXR was obtained and negative for any acute abnormalities. She has since been afebrile. Yesterday morning anesthesia noted potential changes on telemetry and ordered and EKG, which showed fairly diffuse ST segment changes. A stat repeat troponin was checked and normal, and the patient subsequently ruled out with serial cardiac biomarkers. A repeat EKG was performed approximately 30-40 minutes later which was also completely normal and back to baseline. She was taken to the OR for a successful PEG tube placement, and has since been initiated on TFs. She remained intubated this morning, and underwent a successful weaning trial. She has been extubated. She remains afebrile, and blood pressures have been reasonable. No other overnight events reported. Exam Narrative Exam Narrative: GEN: Awake, Alert, Now extubated. Noted significant tremors from baseline PD, appear unchanged from baseline. Neck: Supple Pulm: Clear to auscultation without wheezes. Minimal bibasilar crackles on limited exam. CV: regular without murmur rub or gallop, borderline tachycardic Abdomen: +BS, soft and nontender. Vasc: Lower extremities without peripheral cyanosis or edema Objective Objective Clinical Data: Abnormal lab results 02/12/18 02/12/18 Range/Units 06:15 06:15 RBC 2.54 L (4.00-5.20) m/cumm Hgb 7.5 L (12.0-15.5) g/dL Hct 25.6 L (36.0-46.0) % MCV 100.8 H (80-95) fL MCHC 29.3 L (32.0-36.0) g/dL RDW 16.4 H (11.7-14.6) % Absolute Lymphocytes 0.58 L (1.2-3.4) k/cumm BUN 24 H (7-18) mg/dL Glucose 135 H (70-100) mg/dL Calcium 8.1 L (8.5-10.1) mg/dL Vital Signs Temperature 36.8 C 02/12/18 11:26 Temperature Source Temporal Artery Scan 02/12/18 11:26 Pulse 86 02/12/18 11:26 Pulse Rhythm Irregular 02/06/18 10:23 Pulse 89 02/12/18 11:00 Respiratory Rate 20 02/12/18 11:26 Respiratory Effort 02/12/18 11:26 Respiratory Depth Shallow 02/12/18 11:26 Respiratory Pattern Normal 02/12/18 11:26 Blood Pressure 117/54 L 02/12/18 11:00 Blood Pressure Mean 69 02/12/18 11:00 Blood Pressure Position Supine 02/12/18 11:26 Pulse Oximetry 100 02/12/18 11:26 Respiratory End-tidal CO2 33 02/12/18 10:56 Oxygen Delivery Method Mechanical Ventilator 02/12/18 07:50 Oxygen Flow Rate 0 02/12/18 07:50 Fraction of Inspired Oxygen (FIO2) 60 02/12/18 11:26 Pain Level 0 02/11/18 23:45 Comment 02/10/18 23:32 Intake & Output 02/11/18 02/12/18 02/12/18 23:59 11:59 23:59 Intake Total 1269.474 / 9863.611 1969.921 / 1962.921 Output Total 1450 / 1450 1460 / 1460 Balance -180.526 / -180.526 502.921 / 502.921 Weight 56.8 kg Intake: IV 1149.474 / 6484.809 4752.921 / 1677.921 Intake, Tube Feeding Amount 120 / 120 285 / 285 Output: Gastric Drainage 100 / 100 Left Nare 100 / 100 Urine 1200 / 1200 1100 / 1100 Output, Residual 150 / 150 360 / 360 Other: Urine Color Pale Yellow Yellow Urine Appearance Cloudy Clear Comment marks patent Marks intact and patent. Laboratory Results WBC 6.56 k/cumm (4.4-10.8) 02/12/18 06:15 RBC 2.54 m/cumm (4.00-5.20) L 02/12/18 06:15 Hgb 7.5 g/dL (12.0-15.5) L 02/12/18 06:15 Hct 25.6 % (36.0-46.0) L 02/12/18 06:15 MCV 100.8 fL (80-95) H 02/12/18 06:15 MCH 29.5 pg (27.0-33.0) 02/12/18 06:15 MCHC 29.3 g/dL (32.0-36.0) L 02/12/18 06:15 RDW 16.4 % (11.7-14.6) H 02/12/18 06:15 Plt Count 188 x1000/uL (130-400) 02/12/18 06:15 MPV 10.9 fL (8.0-11.0) 02/12/18 06:15 Immature Gran % 0.3 02/12/18 06:15 Neutrophils % 81.0 02/12/18 06:15 Lymphocytes % 8.8 02/12/18 06:15 Monocytes % 7.3 02/12/18 06:15 Eosinophils % 2.4 02/12/18 06:15 Basophils % 0.2 02/12/18 06:15 Absolute Neutrophils 5.31 k/cumm (1.2-6.7) 02/12/18 06:15 Absolute Lymphocytes 0.58 k/cumm (1.2-3.4) L 02/12/18 06:15 Absolute Monocytes 0.48 k/cumm (0.11-0.7) 02/12/18 06:15 Absolute Eosinophils 0.16 k/cumm (0.0-0.7) 02/12/18 06:15 Absolute Basophils 0.01 k/cumm (0.0-0.2) 02/12/18 06:15 PT 11.4 sec (9.3-10.8) H 02/08/18 06:40 INR 1.2 (1.0-3.5) 02/08/18 06:40 APTT 29.2 sec (21.0-31.4) 02/08/18 06:40 D-Dimer 1038 ng/mlFEU (<500) H 02/09/18 14:00 Sodium 141 mmol/L (136-145) 02/12/18 06:15 Potassium 3.9 mmol/L (3.5-5.1) 02/12/18 06:15 Chloride 107 mmol/L (98-107) 02/12/18 06:15 Carbon Dioxide 25.5 mmol/L (21.0-32.0) 02/12/18 06:15 Anion Gap 8.5 mmol/L (3-11) 02/12/18 06:15 BUN 24 mg/dL (7-18) H 02/12/18 06:15 Creatinine 0.62 mg/dL (0.55-1.02) 02/12/18 06:15 Estimated GFR/1.73 m2 >= 60.00 (mL/min/1.73m2) 02/12/18 06:15 Glucose 135 mg/dL (70-100) H 02/12/18 06:15 Lactate 0.9 mmol/L (0.6-1.4) 02/09/18 14:00 Calcium 8.1 mg/dL (8.5-10.1) L 02/12/18 06:15 Phosphorus 2.1 mg/dL (2.6-4.7) L 02/09/18 14:00 Magnesium 1.9 mg/dL (1.8-2.4) 02/12/18 06:15 Iron 24 ug/dL (50-175) L 02/10/18 16:00 TIBC 218 ug/dL (250-450) L 02/10/18 16:00 Transferrin % Sat 11 % (15-50) L 02/10/18 16:00 Ferritin 464 ng/mL (8-388) H 02/10/18 16:00 Total Bilirubin 0.5 mg/dL (0.2-1.0) 02/08/18 06:40 AST 12 U/L (15-37) L 02/08/18 06:40 ALT 10 U/L (12-78) L 02/08/18 06:40 Alkaline Phosphatase 79 U/L (46-116) 02/08/18 06:40 Creatine Kinase 26 U/L (26-192) 02/06/18 12:20 Troponin I < 0.02 ng/mL (0.00-0.06) 02/11/18 18:15 Total Protein 5.7 g/dL (6.4-8.2) L 02/08/18 06:40 Albumin 2.7 g/dL (3.4-5.0) L 02/08/18 06:40 Vitamin B12 973 pg/mL (193-986) 02/10/18 16:00 Folate 11.6 ng/mL (8.6-20.0) 02/10/18 16:00 TSH 0.21 uIU/mL (0.358-3.74) L 02/11/18 06:35 Free T4 1.27 ng/dL (0.76-1.46) 02/12/18 06:15 Urine Color Yellow (Yellow) 02/06/18 13:15 Urine Clarity Cloudy 02/06/18 13:15 Urine pH 5.5 (5-8) 02/06/18 13:15 Ur Specific Wilber >= 1.030 (1.005-1.025) H 02/06/18 13:15 Urine Protein 30 mg/dL (Negative) H 02/06/18 13:15 Urine Ketones 15 mg/dL (Negative) H 02/06/18 13:15 Urine Blood Trace-intact (Negative) H 02/06/18 13:15 Urine Nitrite Negative (Negative) 02/06/18 13:15 Urine Bilirubin Negative (Negative) 02/06/18 13:15 Urine Urobilinogen 0.2 EU/dL (Up TO 0.2) 02/06/18 13:15 Ur Leukocyte Esterase Large (Negative) H 02/06/18 13:15 Urine RBC 0-2 (0-2) 02/06/18 13:15 Urine WBC >50 HPF (0-5) 02/06/18 13:15 Ur Epithelial Cells Few HPF (Negative) 02/06/18 13:15 Urine Crystals Negative HPF (Negative) 02/06/18 13:15 Urine Bacteria Many HPF (Negative) 02/06/18 13:15 Urine Casts Negative LPF (Negative) 02/06/18 13:15 Urine Mucus Negative (Negative) 02/06/18 13:15 Ur Culture Indicated? Yes 02/06/18 13:15 Urine Glucose Negative mg/dL (Negative) 02/06/18 13:15
[2018-02-12] MEDS: Insulin Aspart 300 UNITS/3 ML PEN SC (12:24)
[2018-02-12] MEDS: Pantoprazole 40 MG VIAL IVP (13:39)
[2018-02-12] MEDS: Enoxaparin 40 MG/0.4 ML SYR SC (13:40)
[2018-02-12] MEDS: Bisacodyl 10 MG SUPP PR (13:40)
--- NOTE | 2018-02-12 15:58 | DI.RAD_ITS ---
SYMPTOM/DIAGNOSIS: CONSTIPATION ACUTE ABDOMINAL SERIES: Comparison is made with 02/11/18. AP chest xray shows heart and pulmonary vasculature are within normal limits. The lungs appear clear. No effusions or pneumothoraces are identified. IMPRESSION: No acute pulmonary process. FLAT AND DECUBITUS ABDOMEN: The patient is rotated. There is a gastrostomy tube which appears to lie to the right of the midline. There is stool seen throughout the colon, particularly in the right colon suggesting constipation. No bowel obstruction or organomegaly is seen. No pneumoperitoneum is present. IMPRESSION: Constipation.
--- NOTE | 2018-02-12 16:52 | DI.VRAD_ITS ---
EXAM: XR Abdomen 2 Views with XR Chest 1 View EXAM DATE/TIME: 02/12/2018 3:59 PM CLINICAL HISTORY: 52 years old, female; Signs and symptoms; Other: Constipation TECHNIQUE: XR of the abdomen (2 views) with XR chest (1 view). COMPARISON: SC XR PORTABLE CHEST AP 02/11/2018 9:15 AM FINDINGS: Limitations: Patient is rotated to the right. Tubes, catheters and devices: Gastrostomy tube terminates in the right abdomen Lungs: Normal. No consolidation. Pleural space: Normal. No pneumothorax. Heart/Mediastinum: Normal. No cardiomegaly. Gastrointestinal tract: Findings consistent with constipation Intraperitoneal space: Normal. No free air. Bones/joints: Degenerative changes in the thoracolumbar spine Degenerative changes in the glenohumeral joints Soft tissues: Normal. IMPRESSION: No acute process Dictated and Authenticated by: Kim Cueva MD. Ordering:LINDA PRATHER MD
[2018-02-12] MEDS: Milk of Magnesia 30 ML CUP PO (17:39)
[2018-02-13] VITALS (37 sets, daily range): BP systolic 101–139; BP diastolic 43–68; PULSE 75–98; RESP 11–24; TEMP 36.5–37.2; O2SAT 98–100
[2018-02-13] MEDS: ACETAMINOPHEN 1,000 MG/100 ML BTL 400 MG IVPB ×2 (06:20→14:51)
[2018-02-13 07:30] LABS: Abs Immature Grans 0.01 k/cumm (0.0-0.09); Absolute Basophil Count 0.01 k/cumm (0.0-0.2); Absolute Lymphocyte Count 0.63 k/cumm (1.2-3.4); Absolute Monocyte Count 0.47 k/cumm (0.11-0.7); Absolute Neutrophil Count 6.16 k/cumm (1.2-6.7); Basophils % 0.1; Eosinophils % 2.7; HCT 25.5 % (36.0-46.0); HGB 7.7 g/dL (12.0-15.5); Immature Grans % 0.1; Lymphocytes % 8.4; Mean Corp. HGB Concentration 30.2 g/dL (32.0-36.0); Mean Corpuscular Hemoglobin 30.7 pg (27.0-33.0); Mean Corpuscular Volume 101.6 fL (80-95); Mean Platelet Volume 10.3 fL (8.0-11.0); Monocytes % 6.3; Neutrophils % 82.4; Platelet Count 246 x1000/uL (130-400); RBC 2.51 m/cumm (4.00-5.20); RBC Distribution Width 16.7 % (11.7-14.6); White Blood Cell Count 7.48 k/cumm (4.4-10.8)
[2018-02-13 07:43] LABS: Anion Gap 5.3 mmol/L (3-11); BUN 24 mg/dL (7-18); CO2 28.7 mmol/L (21.0-32.0); Calcium 8.1 mg/dL (8.5-10.1); Chloride 107 mmol/L (98-107); Glucose 124 mg/dL (70-100); Magnesium 1.7 mg/dL (1.8-2.4); Potassium 3.9 mmol/L (3.5-5.1); Sodium 141 mmol/L (136-145)
--- NOTE | 2018-02-13 08:53 | PDOC.CMPRO ---
Care Management Progress Note S/O: Jaylyn was successfully extubated 02/12/18 and remains in the ICU at this time. Jaylyn also had PEG tube placed over the weekend and tube feeds have begun with slow progression to goal due to high residuals. Per MD, Jayyln will continue on TPN until tube feeds are at goal. Her hemoglobin continues to be monitored as well, and per MD if it drops below 7, the plan will be to transfuse her. Per MD; her hemoglobin remained stable overnight. If Jaylyn continues to stabilize she will likely transition to MED/SURG floor and level of care. Jaylyn was lying on her side in bed when MEAGHAN met with her, MEAGHAN provided mail that Brennon had delivered for Jaylyn-from the rehab. When asked how she was, Jaylyn reported she would be doing better if she could get out of bed. MEAGHAN faxed updated clinicals to Brennon at [facility], completed forms and placed on chart. A: 52 y/o female admitted 02/06/18 for dysphagia P: Jaylyn will return to [facility] once medically cleared. Transportation: EMS [employer] van TBD central to level of functioning and safety per MD.
--- NOTE | 2018-02-13 10:30 | CMPROGNOTE_ITS ---
Care Management Progress Note S/O: Jaylyn was successfully extubated 02/12/18 and remains in the ICU at this time. Jaylyn also had PEG tube placed over the weekend and tube feeds have begun with slow progression to goal due to high residuals. Per MD, Jaylyn will continue on TPN until tube feeds are at goal. Her hemoglobin continues to be monitored as well, and per MD if it drops below 7, the plan will be to transfuse her. Per MD; her hemoglobin remained stable overnight. If Jaylyn continues to stabilize she will likely transition to MED/SURG floor and level of care. Jaylyn was lying on her side in bed when MEAGHAN met with her, MEAGHAN provided mail that Brennon had delivered for Jaylyn-from the rehab. When asked how she was, Jaylyn reported she would be doing better if she could get out of bed. MEAGHAN faxed updated clinicals to Brennon at [facility], completed forms and placed on chart. A: 52 y/o female admitted 02/06/18 for dysphagia P: Jaylyn will return to [facility] once medically cleared. Transportation: EMS [facility] van TBD central to level of functioning and safety per MD.
[2018-02-13] MEDS: Carbidopa 25/Levodopa 100 TAB PO ×3 (11:00→20:57)
[2018-02-13] MEDS: Potassium Chloride 10 MEQ TABCR PO (11:50)
[2018-02-13] MEDS: Magnesium Oxide 400 MG TAB PO (11:50)
[2018-02-13] MEDS: rOPINIRole 0.5 MG TAB 0.25 MG PO ×3 (11:51→20:57)
--- NOTE | 2018-02-13 12:23 | SATEXT_ITS ---
Assessment: High residuals with Jevity 1.2 tricia. Also significant unexpected weight gain. Weight is 56.7kg which is a 15% weight gain in one week. Nutritional Diagnosis: Altered gastrointestinal status related to tube feeding intolerance as evidenced by high residuals per PEG. Intervention: Would recommend a trial of Osmolite 1.2 tricia at the same rate and the same regimen. Osmolite 1.2 tricia is the same feeding as Jevity 1.2 tricia but without the fiber. Perhaps she is not tolerating the feeding well. Significant weight gain noted. Likely not related to her caloric intake given the time frame. Most likely a fluid gain. Monitoring and Evaluation: 1. Will continue to monitor her progress. Would consider tube feeding changes as above. 2. Evaluation of nutrition care plan ongoing.
[2018-02-13] MEDS: Pantoprazole 40 MG VIAL IVP (13:00)
[2018-02-13] MEDS: Enoxaparin 40 MG/0.4 ML SYR SC (14:53)
[2018-02-13] MEDS: traMADol 50 MG TAB PO (14:54)
--- NOTE | 2018-02-13 15:03 | PGE_ITS ---
Date of service: 02/13/18 Time of Service: 14:57 Assessment and Plan (1) Fever: Current visit: Yes Status: Acute Unknown source or etiology, patient has been afebrile since approximately midnight 3 nights ago. Chest XRay without infiltrate. Urine Culture with Enterobacter Cloacae sensitive to prior antibiotic regimen. Blood Cultures repeated and with no growth X48 hours. Monitor vital signs and temps, with further work-up if repeat fever. (2) Abnormal EKG: Current visit: Yes Status: Resolved EKG at 9:30 am on 02/11 performed by Anesthesia with NSR, diffuse ST Segment abnormalities that indicated potential acute infarct in the anteroseptal , inferior regions. Patient was immediately started on a heparin gtt, BB, ASA, and high potency statin therapy, with repeat troponins ordered. However, repeat EKG performed at 10:24 am was completely normal and without any changes from baseline or any signs of ischemia. Initial and follow-up troponins were negative. All of the above medications were discontinued. 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 Asked cardiology for input as well. (3) Respiratory distress, acute: Current visit: No Status: Acute Resolved. Likely precipitated by inadvertant intubation of the right mainstem bronchus prior to planned PEG tube placement. Currently resolved. Patient was maintained on mechanical ventilation, with PEG tube placed on 02/11. Now successfully extubated. (4) UTI (urinary tract infection): Current visit: Yes Status: Acute Treated with Ciprofloxacin X5 days. Urine Culture with Enterobacter Cloacae, sensitive to Fluoroquinolone therapy. (5) Parkinsons disease: Current visit: Yes Status: Chronic Continue home antiparkinsonian medications. (6) Dysphagia: Current visit: Yes Status: Chronic Underwent successful PEG tube placement 02/11. TF's as per surgery. (7) Anemia: Current visit: Yes Status: Chronic Appears to be anemia of chronic disease, with low iron/TIBC and elevated Ferritin. B12 and FA normal. TSH mildly low but checked during acute illness - FT4 checked and normal. Stool for occult blood ordered Current Hgb low with drop post PEG tube. Monitor closely. Also initiated PPI therapy. (8) DVT prophylaxis: Current visit: No Status: Chronic SC Lovenox. Subjective Patient reports: shortness of breath and other (Acute respiratory failure) Interval history since last seen: 52-year-old woman with a PMHx significant for severe PD with concurrent dysphasia and prior aspiration of food, weight loss, and malnutrition, admitted to [facility] on 02/06/2018 for a planned elective PEG tube placement. Ms. So is a resident at nearby health and rehab facility. She has significant dysphagia, and was admitted in September of this year following a significant aspiration event. She was admitted for percutaneous gastrostomy tube placement, but found to be febrile and with a UTI, and remains on antibiotic therapy. She was scheduled for PEG-tube placement on 02/09, but prior to the procedure in the OR, she had rapid onset acute hypoxic respiratory failure with transient cardiac arrest. This did not last longer than 1-2 minutes, and she quickly rebounded with no significant interventions. The cause of her transient respiratory distress appears to have been inadvertant intubation of the right mainstem bronchus. The patient also had fevers 3 nights ago. Blood Cultures were obtained, and a bed side CXR was obtained and negative for any acute abnormalities. She has since been afebrile. Prior to her PEG tube placement anesthesia noted potential changes on telemetry and ordered and EKG, which showed fairly diffuse ST segment changes. A stat repeat troponin was checked and normal, and the patient subsequently ruled out with serial cardiac biomarkers. A repeat EKG was performed approximately 30-40 minutes later which was also completely normal and back to baseline. She was taken to the OR for a successful PEG tube placement, and has since been initiated on TF's, albeit not yet at goal due to high residuals. She was successfully extubated, and appears to be at her baseline mental status. She remains afebrile, and blood pressures have been reasonable. No other overnight events reported. Exam Narrative Exam Narrative: GEN: Awake, Alert, Now extubated. Oriented X3. Noted tremors from baseline PD, appear unchanged from baseline. Neck: Supple Pulm: Clear to auscultation without wheezes. Minimal bibasilar crackles on limited exam. CV: regular without murmur rub or gallop, borderline tachycardic Abdomen: +BS, soft and nontender. Vasc: Lower extremities without peripheral cyanosis or edema Objective Objective Clinical Data: Abnormal lab results 02/13/18 02/13/18 Range/Units 06:25 06:25 RBC 2.51 L (4.00-5.20) m/cumm Hgb 7.7 L (12.0-15.5) g/dL Hct 25.5 L (36.0-46.0) % MCV 101.6 H (80-95) fL MCHC 30.2 L (32.0-36.0) g/dL RDW 16.7 H (11.7-14.6) % Absolute Lymphocytes 0.63 L (1.2-3.4) k/cumm BUN 24 H (7-18) mg/dL Creatinine 0.50 L (0.55-1.02) mg/dL Glucose 124 H (70-100) mg/dL Calcium 8.1 L (8.5-10.1) mg/dL Magnesium 1.7 L (1.8-2.4) mg/dL Vital Signs Temperature 37.2 C 02/13/18 12:30 Temperature Source Tympanic 02/13/18 12:30 Pulse 93 H 02/13/18 13:22 Pulse Rhythm Irregular 02/06/18 10:23 Pulse 95 H 02/13/18 13:22 Respiratory Rate 16 02/13/18 13:22 Respiratory Effort 02/13/18 12:30 Respiratory Depth Normal 02/13/18 12:30 Respiratory Pattern Normal 02/13/18 12:30 Blood Pressure 121/51 L 02/13/18 13:22 Blood Pressure Mean 64 02/13/18 13:22 Blood Pressure Position Supine 02/13/18 12:30 Pulse Oximetry 99 02/13/18 13:22 Respiratory End-tidal CO2 33 02/12/18 10:56 Oxygen Delivery Method Room Air 02/13/18 09:30 Oxygen Flow Rate 0 02/13/18 09:30 Fraction of Inspired Oxygen (FIO2) 60 02/12/18 11:26 Pain Level 0 02/13/18 13:00 Comment 02/13/18 02:38 Intake & Output 02/12/18 02/13/18 02/13/18 23:59 11:59 23:59 Intake Total 1531.000 / 2623.178 3905 / 1270 Output Total 2130 / 2130 805 / 805 1000 / 1000 Balance -599.000 / -599.000 465 / 465 -1000 / -1000 Weight 56.7 kg Intake: IV 1531.000 / 4743.591 5122 / 1120 Intake, Tube Feeding Amount 150 / 150 Output: Urine 1700 / 1700 800 / 800 1000 / 1000 Output, Residual 430 / 430 5 / 5 Other: Urine Color Pale Yellow Yellow Yellow Urine Appearance Clear Clear Clear Comment Mccall in place draining, pale, clear yellow urine in adequate amounts. Mccall in place draining, pale, clear yellow urine. Mccall in place draining, pale, clear yellow urine. Stool Size Small Stool Characteristics Soft Brown Laboratory Results WBC 7.48 k/cumm (4.4-10.8) 02/13/18 06:25 RBC 2.51 m/cumm (4.00-5.20) L 02/13/18 06:25 Hgb 7.7 g/dL (12.0-15.5) L 02/13/18 06:25 Hct 25.5 % (36.0-46.0) L 02/13/18 06:25 MCV 101.6 fL (80-95) H 02/13/18 06:25 MCH 30.7 pg (27.0-33.0) 02/13/18 06:25 MCHC 30.2 g/dL (32.0-36.0) L 02/13/18 06:25 RDW 16.7 % (11.7-14.6) H 02/13/18 06:25 Plt Count 246 x1000/uL (130-400) 02/13/18 06:25 MPV 10.3 fL (8.0-11.0) 02/13/18 06:25 Immature Gran % 0.1 02/13/18 06:25 Neutrophils % 82.4 02/13/18 06:25 Lymphocytes % 8.4 02/13/18 06:25 Monocytes % 6.3 02/13/18 06:25 Eosinophils % 2.7 02/13/18 06:25 Basophils % 0.1 02/13/18 06:25 Absolute Neutrophils 6.16 k/cumm (1.2-6.7) 02/13/18 06:25 Absolute Lymphocytes 0.63 k/cumm (1.2-3.4) L 02/13/18 06:25 Absolute Monocytes 0.47 k/cumm (0.11-0.7) 02/13/18 06:25 Absolute Eosinophils 0.20 k/cumm (0.0-0.7) 02/13/18 06:25 Absolute Basophils 0.01 k/cumm (0.0-0.2) 02/13/18 06:25 PT 11.4 sec (9.3-10.8) H 02/08/18 06:40 INR 1.2 (1.0-3.5) 02/08/18 06:40 APTT 29.2 sec (21.0-31.4) 02/08/18 06:40 D-Dimer 1038 ng/mlFEU (<500) H 02/09/18 14:00 Sodium 141 mmol/L (136-145) 02/13/18 06:25 Potassium 3.9 mmol/L (3.5-5.1) 02/13/18 06:25 Chloride 107 mmol/L (98-107) 02/13/18 06:25 Carbon Dioxide 28.7 mmol/L (21.0-32.0) 02/13/18 06:25 Anion Gap 5.3 mmol/L (3-11) 02/13/18 06:25 BUN 24 mg/dL (7-18) H 02/13/18 06:25 Creatinine 0.50 mg/dL (0.55-1.02) L 02/13/18 06:25 Estimated GFR/1.73 m2 >= 60.00 (mL/min/1.73m2) 02/13/18 06:25 Glucose 124 mg/dL (70-100) H 02/13/18 06:25 Lactate 0.9 mmol/L (0.6-1.4) 02/09/18 14:00 Calcium 8.1 mg/dL (8.5-10.1) L 02/13/18 06:25 Phosphorus 2.1 mg/dL (2.6-4.7) L 02/09/18 14:00 Magnesium 1.7 mg/dL (1.8-2.4) L 02/13/18 06:25 Iron 24 ug/dL (50-175) L 02/10/18 16:00 TIBC 218 ug/dL (250-450) L 02/10/18 16:00 Transferrin % Sat 11 % (15-50) L 02/10/18 16:00 Ferritin 464 ng/mL (8-388) H 02/10/18 16:00 Total Bilirubin 0.5 mg/dL (0.2-1.0) 02/08/18 06:40 AST 12 U/L (15-37) L 02/08/18 06:40 ALT 10 U/L (12-78) L 02/08/18 06:40 Alkaline Phosphatase 79 U/L (46-116) 02/08/18 06:40 Creatine Kinase 26 U/L (26-192) 02/06/18 12:20 Troponin I < 0.02 ng/mL (0.00-0.06) 02/11/18 18:15 Total Protein 5.7 g/dL (6.4-8.2) L 02/08/18 06:40 Albumin 2.7 g/dL (3.4-5.0) L 02/08/18 06:40 Vitamin B12 973 pg/mL (193-986) 02/10/18 16:00 Folate 11.6 ng/mL (8.6-20.0) 02/10/18 16:00 TSH 0.21 uIU/mL (0.358-3.74) L 02/11/18 06:35 Free T4 1.27 ng/dL (0.76-1.46) 02/12/18 06:15 Urine Color Yellow (Yellow) 02/06/18 13:15 Urine Clarity Cloudy 02/06/18 13:15 Urine pH 5.5 (5-8) 02/06/18 13:15 Ur Specific [place] >= 1.030 (1.005-1.025) H 02/06/18 13:15 Urine Protein 30 mg/dL (Negative) H 02/06/18 13:15 Urine Ketones 15 mg/dL (Negative) H 02/06/18 13:15 Urine Blood Trace-intact (Negative) H 02/06/18 13:15 Urine Nitrite Negative (Negative) 02/06/18 13:15 Urine Bilirubin Negative (Negative) 02/06/18 13:15 Urine Urobilinogen 0.2 EU/dL (Up TO 0.2) 02/06/18 13:15 Ur Leukocyte Esterase Large (Negative) H 02/06/18 13:15 Urine RBC 0-2 (0-2) 02/06/18 13:15 Urine WBC >50 HPF (0-5) 02/06/18 13:15 Ur Epithelial Cells Few HPF (Negative) 02/06/18 13:15 Urine Crystals Negative HPF (Negative) 02/06/18 13:15 Urine Bacteria Many HPF (Negative) 02/06/18 13:15 Urine Casts Negative LPF (Negative) 02/06/18 13:15 Urine Mucus Negative (Negative) 02/06/18 13:15 Ur Culture Indicated? Yes 02/06/18 13:15 Urine Glucose Negative mg/dL (Negative) 02/06/18 13:15
[2018-02-13] MEDS: Normal Saline Flush 10 ML SYR IV ×2 (15:09→21:13)
--- NOTE | 2018-02-13 19:29 | W.PM.PROGNOT ---
Date of service: 02/13/18 Time of Service: 19:29 Assessment and Plan (1) Dysphagia: Current visit: Yes Status: Acute Neurologic: Receiving fast release carbidopa?levodopa, amantadine, Requip. Fluoxetine and baclofen are currently on hold Cardiac: Stable no issues Respiratory: Continue pulmonary toilet and DVT prophylaxis Gastrointestinal: Bowel function improving will start on bowel regimen Renal: Creatinine normal plan to remove Mccall prior to discharge Nutrition//Fluids/electrolytes: Tube feeds progressing to goal, TPN discontinued along with lipids. Free water added in to tube feeding regimen. Will continue use Jevity 1.2 as she is tolerating tube feeds now, and we will hold off switching to Osmolite Hematology/Oncology: Anemia stable, will restart iron supplements Musculoskeletal: Parkinsonian meds Pyschiatric: Anxious, will restart fluoxetine Infectious Disease: Afebrile normal white count Lines/Tubes/Dressings: Midline in place, once tube feeds at goal and not needing other IV medications will remove mid Disposition: Continue current care plan for return to health and rehab before end of week. Subjective Patient reports: tolerating liquids well (Tube feeds now with zero residuals), bowel movement and afebrile Interval history since last seen: G tube feeds tolerated after enemas, now with minimal residuals, progressing to goal, d Exam Const General: cooperative and no acute distress Nutritional Appearance: malnourished and thin Orientation: alert, awake and oriented x3 Resp Effort & Inspection: no audible wheezes and not labored Cardio Jugular venous pressure: no JVD Rate: regular rate Rhythm: regular rhythm GI Inspection: no abdominal wall ecchymosis, non-distended and incision (tube site clean, w/o infection) Palpation: soft and tender (over g-tube site as appropriate) Rectal Exam - female: deferred Skin General skin exam: no rashes or lesions noted and turgor normal Extrem General: normal capillary refill, clubbing, no cyanosis and pedal edema Objective Objective Clinical Data: Vital Signs - 24 hr 02/12/18 20:00 02/12/18 21:01 02/12/18 22:01 Temperature Pulse 88 84 88 Respiratory Rate 19 18 19 Blood Pressure 109/40 L 119/51 L 121/51 L Pulse Oximetry 100 100 02/12/18 23:01 02/13/18 00:01 09/25/18 00:10 Temperature 36.7 C Pulse 88 88 Respiratory Rate 21 20 Blood Pressure 123/59 L 128/58 L Pulse Oximetry 100 100 02/13/18 01:00 02/13/18 02:00 02/13/18 03:00 Temperature Pulse 83 81 86 Respiratory Rate 17 16 17 Blood Pressure 126/63 107/51 L 122/53 L Pulse Oximetry 100 100 100 02/13/18 04:00 02/13/18 05:00 02/13/18 06:01 Temperature 37.2 C Pulse 86 90 89 Respiratory Rate 17 17 21 Blood Pressure 116/49 L 113/65 119/54 L Pulse Oximetry 100 100 100 02/13/18 07:00 02/13/18 07:01 02/13/18 08:00 Temperature Pulse 89 95 H Respiratory Rate 20 24 Blood Pressure 119/54 L 116/66 Pulse Oximetry 99 99 98 02/13/18 08:15 02/13/18 09:00 02/13/18 09:30 Temperature 36.5 C Pulse 88 Respiratory Rate 17 Blood Pressure 123/53 L Pulse Oximetry 99 98 02/13/18 10:00 02/13/18 10:01 02/13/18 10:18 Temperature Pulse 92 H 86 Respiratory Rate 17 14 17 Blood Pressure 115/65 121/68 Pulse Oximetry 100 99 99 02/13/18 11:00 02/13/18 11:46 02/13/18 12:01 Temperature Pulse 90 93 H 96 H Respiratory Rate 19 16 18 Blood Pressure 123/64 127/63 135/64 Pulse Oximetry 99 98 99 02/13/18 12:30 02/13/18 12:33 02/13/18 13:22 Temperature 37.2 C Pulse 96 H 93 H Respiratory Rate 19 21 16 Blood Pressure 139/63 121/51 L Pulse Oximetry 100 99 02/13/18 14:01 02/13/18 15:27 02/13/18 16:00 Temperature 37.0 C Pulse 90 87 Respiratory Rate 14 15 Blood Pressure 113/46 L 123/49 L Pulse Oximetry 100 100 02/13/18 16:01 02/13/18 17:00 02/13/18 18:00 Temperature Pulse 85 87 84 Respiratory Rate 15 18 14 Blood Pressure 122/59 L 116/51 L 102/43 L Pulse Oximetry 99 99 100 02/13/18 19:00 Temperature Pulse 85 Respiratory Rate 17 Blood Pressure 101/49 L Pulse Oximetry 99 Intake & Output 02/13/18 02/13/18 02/14/18 06:59 18:59 06:59 Intake Total 1220 / 1220 1311 / 1311 Output Total 1815 / 1815 1000 / 1000 825 / 825 Balance -595 / -595 311 / 311 -825 / -825 Weight 56.7 kg Intake: IV 1220 / 1220 1161 / 1161 Intake, Tube Feeding Amount 150 / 150 Output: Urine 1650 / 1650 1000 / 1000 825 / 825 Output, Residual 165 / 165 0 / 0 Other: Urine Color Yellow Yellow Yellow Urine Appearance Clear Clear Clear Comment Mccall in place draining, pale, clear yellow urine. Mccall in place draining, pale, clear yellow urine. Stool Size Small Stool Characteristics Soft Brown Laboratory Results - last 24 hr 02/13/18 02/13/18 06:25 06:25 WBC 7.48 RBC 2.51 L Hgb 7.7 L Hct 25.5 L MCV 101.6 H MCH 30.7 MCHC 30.2 L RDW 16.7 H Plt Count 246 MPV 10.3 Immature Gran % 0.1 Neutrophils % 82.4 Lymphocytes % 8.4 Monocytes % 6.3 Eosinophils % 2.7 Basophils % 0.1 Absolute Neutrophils 6.16 Absolute Lymphocytes 0.63 L Absolute Monocytes 0.47 Absolute Eosinophils 0.20 Absolute Basophils 0.01 Sodium 141 Potassium 3.9 Chloride 107 Carbon Dioxide 28.7 Anion Gap 5.3 BUN 24 H Creatinine 0.50 L Estimated GFR/1.73 m2 >= 60.00 Glucose 124 H Calcium 8.1 L Magnesium 1.7 L
[2018-02-13] MEDS: Docusate Sodium 100 MG CAP PO (20:57)
[2018-02-13] MEDS: ACETAMINOPHEN 1,000 MG/100 ML BTL 100 MG IVPB (21:07)
[2018-02-14] VITALS (33 sets, daily range): BP systolic 93–134; BP diastolic 46–69; PULSE 72–88; RESP 12–18; TEMP 36–37; O2SAT 98–100
[2018-02-14] MEDS: ACETAMINOPHEN 1,000 MG/100 ML BTL 100 MG IVPB ×2 (05:13→14:43)
[2018-02-14 07:11] LABS: Abs Immature Grans 0.01 k/cumm (0.0-0.09); Absolute Basophil Count 0.01 k/cumm (0.0-0.2); Absolute Eosinophil Count 0.25 k/cumm (0.0-0.7); Absolute Lymphocyte Count 1.06 k/cumm (1.2-3.4); Absolute Monocyte Count 0.52 k/cumm (0.11-0.7); Absolute Neutrophil Count 3.24 k/cumm (1.2-6.7); Basophils % 0.2; Eosinophils % 4.9; HGB 7.6 g/dL (12.0-15.5); Immature Grans % 0.2; Lymphocytes % 20.8; Mean Corp. HGB Concentration 30.4 g/dL (32.0-36.0); Mean Corpuscular Hemoglobin 30.6 pg (27.0-33.0); Mean Corpuscular Volume 100.8 fL (80-95); Mean Platelet Volume 9.9 fL (8.0-11.0); Monocytes % 10.2; Neutrophils % 63.7; Platelet Count 252 x1000/uL (130-400); RBC 2.48 m/cumm (4.00-5.20); RBC Distribution Width 16.4 % (11.7-14.6); White Blood Cell Count 5.09 k/cumm (4.4-10.8)
[2018-02-14 07:22] LABS: Anion Gap 5.8 mmol/L (3-11); BUN 19 mg/dL (7-18); CO2 27.2 mmol/L (21.0-32.0); CREATININE 0.58 mg/dL (0.55-1.02); Calcium 7.9 mg/dL (8.5-10.1); Chloride 103 mmol/L (98-107); Glucose 109 mg/dL (70-100); Magnesium 1.4 mg/dL (1.8-2.4); Potassium 3.8 mmol/L (3.5-5.1); Sodium 136 mmol/L (136-145)
[2018-02-14] MEDS: MAGNESIUM SULFATE 4 GM/100 ML BAG IVPB (09:31)
[2018-02-14] MEDS: Carbidopa 25/Levodopa 100 TAB PO ×3 (09:37→20:28)
[2018-02-14] MEDS: rOPINIRole 0.5 MG TAB 0.25 MG PO ×3 (09:37→20:29)
[2018-02-14] MEDS: Polyethylene Glycol 3350 17 GM PACKET PO (09:38)
--- NOTE | 2018-02-14 11:27 | PT.INIE ---
Date of service: 02/14/18 Time of Service: 11:27 PT Notes Date: 02/14/18 Referring Doctor: Dick Nicole PT Orders: PT Consult severe Parkinson's Precautions: Fall Precautions, aspiration precautions PATIENT PROFILE/ADMITTING DIAGNOSIS: Pt is a 52yr old female admitted with dysphagia, s/p PEG tube placement 02/11/18 with subsequent intubation during procedure with extubation 02/12/18 PMHX: Parkinson's disease, dyskinesia, dysphagia, chromosome II abnormality, urinary incontinence. osteoarthritis, carpal tunnel syndrome, depression, hypertension, hyperlipidemia, insomnia, hysterectomy, tonsillectomy, adenoidectomy Social History/Home Situation: Resident of [facility], [place] [facility] [place] facility, pt reports she has been primarily bed bound, she reports the last time she walked with her 4WW was December. Pt is dependent with ADLS Equipment owned/DME: 4WW SUBJECTIVE: Pt lying in bed, agreeable to PT consult. Has her sneakers here in room from rehab facility. OBJECTIVE: General Observation: IV L UE, marks catheter, PEG tube/feeding tube Mental Status: A& O x 3 Pain: no c/o pain ROM: RUE AROM shoulder flexion 60, elbow -5 extension and wrist WNL, resting position pt flexing elbows and wrists LUE AROM shoulder flexion 80, elbow - 5 extension and wrist WNL, resting position pt flexing elbows and wrists RLE AROM hip flexion 90, knee WNL, ankle PROM WNL. pt maintaining bilateral plantar flexion with flexed toes in resting position, supination left ankle. Able to get to neutral DF and resting alignment with stretching. Tight achilles tendons bilaterally LLE AROM hip flexion 90, knee WNL, ankle PROM WNL. pt maintaining bilateral plantar flexion with flexed toes in resting position. Able to get to neutral DF and resting alignment with stretching. Tight achilles tendons bilaterally STRENGTH: RUE: shoulder flexion 1/5, bicep 3/5, communications field technician 5/5 LUE: shoulder flexion 1/5, bicep 3/5, communications field technician 5/5 RLE: hip flexion 2/5, quad 2/5, ankle DF/PF 2/5 LLE: hip flexion 2/5, quad 2/5, ankle DF/PF 2/5 BED MOBILITY/TRANSFERS: Supine-sit: HOB 40 degrees maxA for hips to edge of bed Sit-stand: maxAx1 with STEDY lift, max A for positioning legs and feet in lift, assist for reaching to STEDY bar to get to standing Bed-chair: maxA with STEDY Stand-sit: maxA GAIT: maxA with STEDY lift standing at chair side for 30 seconds, transferred to chair with STEDY lift. Positioned up in chair. BALANCE: Static sitting normal Dynamic Sitting normal Static Standing poor Dynamic Standing poor SPECIAL TESTS: Mobility Limitations Standardized Measure [facility] AM -PAC ?6 clicks? Basic Mobility Inpatient Short Form: raw score: 10 standardized score: 32.29 CMS score: 76.75% CMS modifier: CL INFORMED CONSENT/EDUCATION: Pt instructed in purpose of PT Consult and plan of care ASSESSMENT: Pt is a 52yr old female admitted with dysphagia, s/p PEG tube placement 02/11/18 with subsequent intubation during procedure with extubation 02/12/18, in setting of Parkinson's disease, dyskinesia, dysphagia, chromosome II abnormality, urinary incontinence. osteoarthritis, carpal tunnel syndrome. Patient presents with clinical signs and symptoms consistent with Parkinson's disease as demonstrated by the following impairment level findings: upper and lower body tremors, decreased ROM all joints due to tightness and immobility, weakness in upper and lower extremities, decreased strength and mobility with bed transfers and standing transfers requiring maxA and STEDY lift to mobilize, decreased static and dynamic standing balance putting her at high risk for falls. At this time patient is non-ambulatory and has difficulty with standing duration of only 30 seconds Pt will benefit from skilled therapy intervention to improve her ROM, flexibility, strength, transfer mobility, standing tolerance and duration. Anticipate return to [facility] when medically cleared for continued therapy. Impairments are contributing to the following functional limitations: AMPAC score CMS score: 76.75% Patient is assessed as a * high [id number] complexity based on the following: History: respiratory failure after aspirating on food and acute kidney injury in setting of Parkinson's disease, dyskinesia, dysphagia, chromosome II abnormality, urinary incontinence. osteoarthritis, carpal tunnel syndrome Examination: dynamic standing balance putting her at risk for falls, Parkinson's gait pattern with narrow base of support, flexed joints and posture, decreased balance with turning and positioning. Presentation: evolving Decision Making: AMPAC score CMS score: 76.75% GOALS Goals x1 week 1. Supine-sit: minAx1 2. Sit-Supine minAx1 3. Sit-Stand: maxAx1 with FWW 4. Stand-sit minAx1 5. Bed-chair maxAx1 with FWW 6. Chair-bed maxax1 with FWW 7. Gait: MaxAx1 with FWW 10ftx2 PLAN OF CARE/TREATMENT PLAN: 1-2x/day, 7 days/ week x 1 week Plan of care has been reviewed with the EMPLOYEE RELATIONS MANAGER providing the service under Physical therapy direction. Initiate physical therapy intervention for strengthening, bed mobility, transfers, gait, stairs, balance training, use of assistive device. DISCHARGE RECOMMENDATIONS Return to [facility] TREATMENT TIME/MINUTES/CODES 30min IE 11:25 G Codes in the area mobility of walking and moving around: current status [id number] CL projected status GP [id number]__[id number] Discharge status (if discharging) GP [id number] [facility] score CMS score: 76.75% Blanca Akhtar PT
[2018-02-14] MEDS: Pantoprazole 40 MG VIAL IVP (12:35)
[2018-02-14] MEDS: Normal Saline Flush 10 ML SYR IV ×2 (12:36→14:45)
--- NOTE | 2018-02-14 12:41 | PDOC.CMPRO ---
- If Service Date Differs Date of service: 02/14/18 Time of Service: 12:41 Care Management Progress Note S/O: Jaylyn's TPN has been discontinued at this time. She continues to have a midline in place and the Peg tube is being utilized. MEAGHAN spoke with [facility] today in regards to peg tube feeds, Brennon states that [facility] only has Jevity available to them at this time, and he will ask if they can get osmolite in stock as Jaylyn may need to transition to Osmolite. Brennon to speak with [facility] in regards to the above. A: 52 y/o female admitted 02/06/18 for dysphagia P: Jaylyn will [facility] once medically cleared. Transportation: [facility] [place] TBD central to level of functioning and safety per MD.
--- NOTE | 2018-02-14 12:49 | CMPROGNOTE_ITS ---
- If Service Date Differs Date of service: 02/14/18 Time of Service: 12:41 Care Management Progress Note S/O: Jaylyn's TPN has been discontinued at this time. She continues to have a midline in place and the Peg tube is being utilized. MEAGHAN spoke with [facility] today in regards to peg tube feeds, Brennon states that [facility] only has Jevity available to them at this time, and he will ask if they can get osmolite in stock as Jaylyn may need to transition to Osmolite. Brennon to speak with [facility] in regards to the above. A: 52 y/o female admitted 02/06/18 for dysphagia P: Jaylyn will return to [facility] once medically cleared. Transportation: [facility] [place] TBD central to level of functioning and safety per MD.
--- NOTE | 2018-02-14 13:49 | PT.INTREAT ---
Date of service: 02/14/18 Time of Service: 13:49 PT Notes Inpatient Physical Therapy Treatment Note Date: 02/14/18 PRECAUTIONS: Fall SUBJECTIVE: Jaylyn states that she would like to transfer back to bed from the chair. OBJECTIVE: PAIN: Patient c/o R elbow pain with elbow and shoulder flexion BED MOBILITY/TRANSFERS Sit-supine: Max A x2 with HOB flat Sit-stand: Max A with STEDY Stand-sit: Mod A x2 with STEDY Chair-bed: STEDY GAIT: Unable THEREX: Patient completed a LE strengthening program, as per flow sheet. Patient also tolerated static standing in STEDY x2 mintues, and short-sitting at EOB x5 minutes, unsupported. ASSESSMENT: Patient was able to tolerate a LE strengthening program, as well as a progression in her standing duration in the STEDY lift. Patient was also able to tolerate short-sitting, unsupported, at EOB. PLAN: Continue with PT's POC TREATMENT CODE/TIME: 30 minutes; TA/TP
[2018-02-14] MEDS: Enoxaparin 40 MG/0.4 ML SYR SC (14:44)
[2018-02-14] MEDS: Docusate Sodium 100 MG/10 ML CUP PO ×2 (14:49→20:28)
--- NOTE | 2018-02-14 14:58 | PGE_ITS ---
Date of service: 02/14/18 Time of Service: 14:56 Assessment and Plan (1) Fever: Current visit: Yes Status: Acute Unknown source or etiology, patient has been afebrile since approximately midnight 4 nights ago. Chest XRay without infiltrate. Urine Culture with Enterobacter Cloacae sensitive to prior antibiotic regimen. Blood Cultures repeated and with no growth X72 hours. Monitor vital signs and temps, with further work-up if repeat fever. (2) Abnormal EKG: Current visit: Yes Status: Resolved EKG at 9:30 am on 02/11 performed by Anesthesia with NSR, diffuse ST Segment abnormalities that indicated potential acute infarct in the anteroseptal , inferior regions. Patient was immediately started on a heparin gtt, BB, ASA, and high potency statin therapy, with repeat troponins ordered. However, repeat EKG performed at 10:24 am was completely normal and without any changes from baseline or any signs of ischemia. Initial and follow-up troponins were negative. All of the above medications were discontinued. 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 Asked cardiology for input as well, with recommendations for a nuclear stress test - ordered. (3) Respiratory distress, acute: Current visit: No Status: Acute Resolved. Likely precipitated by inadvertant intubation of the right mainstem bronchus prior to planned PEG tube placement. Currently resolved. Patient was maintained on mechanical ventilation, with PEG tube placed on 02/11. Now successfully extubated. (4) UTI (urinary tract infection): Current visit: Yes Status: Acute Treated with Ciprofloxacin X5 days. Urine Culture with Enterobacter Cloacae, sensitive to Fluoroquinolone therapy. (5) Parkinsons disease: Current visit: Yes Status: Chronic Continue home antiparkinsonian medications. (6) Dysphagia: Current visit: Yes Status: Acute Underwent successful PEG tube placement 02/11. TF's as per surgery. (7) Anemia: Current visit: Yes Status: Chronic Appears to be anemia of chronic disease, with low iron/TIBC and elevated Ferritin. B12 and FA normal. TSH mildly low but checked during acute illness - FT4 checked and normal. Stool for occult blood ordered. Current Hgb low with drop post PEG tube, but remains stable. Monitor closely. Also initiated PPI therapy. (8) DVT prophylaxis: Current visit: No Status: Chronic SC Lovenox. Subjective Patient reports: shortness of breath and other (Acute respiratory failure) Interval history since last seen: 52-year-old woman with a PMHx significant for severe PD with concurrent dysphasia and prior aspiration of food, weight loss, and malnutrition, admitted to [facility] on 02/06/2018 for a planned elective PEG tube placement. Ms. So is a resident at nearby health and rehab facility. She has significant dysphagia, and was admitted in September of this year following a significant aspiration event. She was admitted for percutaneous gastrostomy tube placement, but found to be febrile and with a UTI, and remains on antibiotic therapy. She was scheduled for PEG-tube placement on 02/09, but prior to the procedure in the OR, she had rapid onset acute hypoxic respiratory failure with transient cardiac arrest. This did not last longer than 1-2 minutes, and she quickly rebounded with no significant interventions. The cause of her transient respiratory distress appears to have been inadvertant intubation of the right mainstem bronchus. The patient also had fevers a few nights ago. Blood Cultures were obtained, and a bed side CXR was obtained and negative for any acute abnormalities. She has since been afebrile. Prior to her PEG tube placement anesthesia noted potential changes on telemetry and ordered and EKG, which showed fairly diffuse ST segment changes. A stat repeat troponin was checked and normal, and the patient subsequently ruled out with serial cardiac biomarkers. A repeat EKG was performed approximately 30-40 minutes later which was also completely normal and back to baseline. She was taken to the OR for a successful PEG tube placement, and has since been initiated on TF's, now at goal and without further high residuals. She was successfully extubated, and appears to be at her baseline mental status. She remains afebrile, and blood pressures have been reasonable. No other overnight events reported. Exam Narrative Exam Narrative: GEN: Awake, Alert, Oriented X3. Noted tremors from PD, appear unchanged from baseline. Neck: Supple Pulm: Clear to auscultation without wheezes. Minimal bibasilar crackles on limited exam. CV: regular without murmur rub or gallop, borderline tachycardic Abdomen: +BS, soft and nontender. Vasc: Lower extremities without peripheral cyanosis or edema Objective Objective Clinical Data: Abnormal lab results 09/26/18 09/26/18 Range/Units 06:30 06:30 RBC 2.48 L (4.00-5.20) m/cumm Hgb 7.6 L (12.0-15.5) g/dL Hct 25.0 L (36.0-46.0) % MCV 100.8 H (80-95) fL MCHC 30.4 L (32.0-36.0) g/dL RDW 16.4 H (11.7-14.6) % Absolute Lymphocytes 1.06 L (1.2-3.4) k/cumm BUN 19 H (7-18) mg/dL Glucose 109 H (70-100) mg/dL Calcium 7.9 L (8.5-10.1) mg/dL Magnesium 1.4 L (1.8-2.4) mg/dL Vital Signs Temperature 36.8 C 02/14/18 13:15 Temperature Source Temporal Artery Scan 02/14/18 13:15 Pulse 79 02/14/18 10:00 Pulse Rhythm Irregular 02/06/18 10:23 Pulse 82 02/14/18 11:00 Respiratory Rate 16 02/14/18 11:00 Respiratory Effort 02/14/18 13:15 Respiratory Depth Normal 02/14/18 13:15 Respiratory Pattern Normal 02/14/18 13:15 Blood Pressure 106/53 L 02/14/18 10:00 Blood Pressure Mean 65 02/14/18 10:00 Blood Pressure Position Right Lateral 02/14/18 13:15 Pulse Oximetry 100 02/14/18 10:01 Respiratory End-tidal CO2 33 02/12/18 10:56 Oxygen Delivery Method Room Air 02/14/18 13:15 Oxygen Flow Rate 0 02/14/18 13:15 Fraction of Inspired Oxygen (FIO2) 60 02/12/18 11:26 Pain Level 0 02/14/18 13:15 Comment 02/13/18 02:38 Intake & Output 02/13/18 02/14/18 02/14/18 23:59 11:59 23:59 Intake Total 1735.162 / 1735.162 385 / 385 229 / 229 Output Total 2290 / 2290 1160 / 1160 55 / 55 Balance -554.838 / -554.838 -775 / -775 174 / 174 Weight 56 kg Intake: IV 1320.162 / 1320.162 100 / 100 Intake, Tube Feeding Amount 415 / 415 285 / 285 229 / 229 Output: Urine 2275 / 2275 1150 / 1150 Output, Residual 15 55 / 55 Other: Urine Color Yellow Yellow Urine Appearance Clear Clear Urine Odor None Comment Mccall intact and draining clear yellow urine, QS. folwy draining clear yellow urine Large void at this time. Voiding Methods Incontinent Laboratory Results WBC 5.09 k/cumm (4.4-10.8) D 02/14/18 06:30 RBC 2.48 m/cumm (4.00-5.20) L 02/14/18 06:30 Hgb 7.6 g/dL (12.0-15.5) L 02/14/18 06:30 Hct 25.0 % (36.0-46.0) L 02/14/18 06:30 MCV 100.8 fL (80-95) H 02/14/18 06:30 MCH 30.6 pg (27.0-33.0) 02/14/18 06:30 MCHC 30.4 g/dL (32.0-36.0) L 02/14/18 06:30 RDW 16.4 % (11.7-14.6) H 02/14/18 06:30 Plt Count 252 x1000/uL (130-400) 02/14/18 06:30 MPV 9.9 fL (8.0-11.0) 02/14/18 06:30 Immature Gran % 0.2 02/14/18 06:30 Neutrophils % 63.7 02/14/18 06:30 Lymphocytes % 20.8 02/14/18 06:30 Monocytes % 10.2 02/14/18 06:30 Eosinophils % 4.9 02/14/18 06:30 Basophils % 0.2 02/14/18 06:30 Absolute Neutrophils 3.24 k/cumm (1.2-6.7) 02/14/18 06:30 Absolute Lymphocytes 1.06 k/cumm (1.2-3.4) L 02/14/18 06:30 Absolute Monocytes 0.52 k/cumm (0.11-0.7) 09/26/18 06:30 Absolute Eosinophils 0.25 k/cumm (0.0-0.7) 02/14/18 06:30 Absolute Basophils 0.01 k/cumm (0.0-0.2) 02/14/18 06:30 PT 11.4 sec (9.3-10.8) H 02/08/18 06:40 INR 1.2 (1.0-3.5) 02/08/18 06:40 APTT 29.2 sec (21.0-31.4) 02/08/18 06:40 D-Dimer 1038 ng/mlFEU (<500) H 02/09/18 14:00 Sodium 136 mmol/L (136-145) 02/14/18 06:30 Potassium 3.8 mmol/L (3.5-5.1) 02/14/18 06:30 Chloride 103 mmol/L (98-107) 02/14/18 06:30 Carbon Dioxide 27.2 mmol/L (21.0-32.0) 02/14/18 06:30 Anion Gap 5.8 mmol/L (3-11) 02/14/18 06:30 BUN 19 mg/dL (7-18) H 02/14/18 06:30 Creatinine 0.58 mg/dL (0.55-1.02) 02/14/18 06:30 Estimated GFR/1.73 m2 >= 60.00 (mL/min/1.73m2) 02/14/18 06:30 Glucose 109 mg/dL (70-100) H 02/14/18 06:30 Lactate 0.9 mmol/L (0.6-1.4) 02/09/18 14:00 Calcium 7.9 mg/dL (8.5-10.1) L 02/14/18 06:30 Phosphorus 2.1 mg/dL (2.6-4.7) L 02/09/18 14:00 Magnesium 1.4 mg/dL (1.8-2.4) L 02/14/18 06:30 Iron 24 ug/dL (50-175) L 02/10/18 16:00 TIBC 218 ug/dL (250-450) L 02/10/18 16:00 Transferrin % Sat 11 % (15-50) L 02/10/18 16:00 Ferritin 464 ng/mL (8-388) H 02/10/18 16:00 Total Bilirubin 0.5 mg/dL (0.2-1.0) 02/08/18 06:40 AST 12 U/L (15-37) L 02/08/18 06:40 ALT 10 U/L (12-78) L 02/08/18 06:40 Alkaline Phosphatase 79 U/L (46-116) 02/08/18 06:40 Creatine Kinase 26 U/L (26-192) 02/06/18 12:20 Troponin I < 0.02 ng/mL (0.00-0.06) 02/11/18 18:15 Total Protein 5.7 g/dL (6.4-8.2) L 02/08/18 06:40 Albumin 2.7 g/dL (3.4-5.0) L 02/08/18 06:40 Vitamin B12 973 pg/mL (193-986) 02/10/18 16:00 Folate 11.6 ng/mL (8.6-20.0) 02/10/18 16:00 TSH 0.21 uIU/mL (0.358-3.74) L 02/11/18 06:35 Free T4 1.27 ng/dL (0.76-1.46) 02/12/18 06:15 Urine Color Yellow (Yellow) 02/06/18 13:15 Urine Clarity Cloudy 02/06/18 13:15 Urine pH 5.5 (5-8) 02/06/18 13:15 Ur Specific Warren >= 1.030 (1.005-1.025) H 02/06/18 13:15 Urine Protein 30 mg/dL (Negative) H 02/06/18 13:15 Urine Ketones 15 mg/dL (Negative) H 02/06/18 13:15 Urine Blood Trace-intact (Negative) H 02/06/18 13:15 Urine Nitrite Negative (Negative) 02/06/18 13:15 Urine Bilirubin Negative (Negative) 02/06/18 13:15 Urine Urobilinogen 0.2 EU/dL (Up TO 0.2) 02/06/18 13:15 Ur Leukocyte Esterase Large (Negative) H 02/06/18 13:15 Urine RBC 0-2 (0-2) 02/06/18 13:15 Urine WBC >50 HPF (0-5) 02/06/18 13:15 Ur Epithelial Cells Few HPF (Negative) 02/06/18 13:15 Urine Crystals Negative HPF (Negative) 02/06/18 13:15 Urine Bacteria Many HPF (Negative) 02/06/18 13:15 Urine Casts Negative LPF (Negative) 02/06/18 13:15 Urine Mucus Negative (Negative) 02/06/18 13:15 Ur Culture Indicated? Yes 02/06/18 13:15 Urine Glucose Negative mg/dL (Negative) 02/06/18 13:15
--- NOTE | 2018-02-14 15:33 | W.SPEECHEVAL ---
Date of service: 02/14/18 Time of Service: 13:33 Speech Therapy Evaluation Note: Jaylyn Sahu was evaluated in the intensive care unit at [facility] for disorders of swallowing. This 52-year-old female was admitted from [facility] for placement of a feeding tube to supplement her oral feedings due to recent weight loss. This pathologist is familiar with the patient from previous visits where she was seen for dysphagia. While at [facility] she was on a pur?ed diet with pudding thick liquids which she vehemently protested to this pathologist. The patient is alert and responsive and despite a very soft voice her speech is easy to understand. Her medical diagnosis is Parkinson's. This pathologist obtained a satisfactory review of the patient's past several years and increasing swallowing difficulty she is currently working with speech pathologist Kristen Bernstein. The major question offered by the patient and her family was whether or not she would ever be able to take oral intake again this apparently was not discussed prior to the surgery. The SAFE swallowing evaluation was presented and the patient was successful with pur?e with pudding thick liquids and with honey thick liquids. This pathologist also presented a popsicle which Jaylyn requested and she was able to take this satisfactorily after 10-15 lytics. Her oxygen saturation levels remained in the high 90s-100 without any supplemental oxygen. She presented no coughing or choking she displayed no signs of aspiration and did not struggle with any of the textures presented. At present the patient appears to be safe to begin oral feeding in conjunction with tube feeding. This pathologist is recommending the followin. A pur?ed diet to be administered by the staff. 2. Honey thick liquids presented either by cup or by spoon. 3. The patient may have small amounts of popsicle but in the event that the patient shows any sign of penetration into the laryngeal vestibule this item is to be removed from her diet. #4 this pathologist will contact the ICU staff tomorrow to ensure that the current diet order is safe and both the patient and the staff feel that these recommendations continue to be adequate. Thank you for referring this delightful patient to my attention. James Lozano., C. C. C. Speech pathologist
--- NOTE | 2018-02-14 15:44 | EVALE_ITS ---
Date of service: 02/14/18 Time of Service: 13:33 Speech Therapy Evaluation Note: Jaylyn Sahu was evaluated in the intensive care unit at [facility] for disorders of swallowing. This 52-year-old female was admitted from [facility] for placement of a feeding tube to supplement her oral feedings due to recent weight loss. This pathologist is familiar with the patient from previous visits where she was seen for dysphagia. While at [facility] she was on a pur?ed diet with pudding thick liquids which she vehemently protested to this pathologist. The patient is alert and responsive and despite a very soft voice her speech is easy to understand. Her medical diagnosis is Parkinson's. This pathologist obtained a satisfactory review of the patient's past several years and increasing swallowing difficulty she is currently working with speech pathologist Kristen Bernstein. The major question offered by the patient and her family was whether or not she would ever be able to take oral intake again this apparently was not discussed prior to the surgery. The SAFE swallowing evaluation was presented and the patient was successful with pur?e with pudding thick liquids and with honey thick liquids. This pathologist also presented a popsicle which Jaylyn requested and she was able to take this satisfactorily after 10-15 lytics. Her oxygen saturation levels remained in the high 90s-100 without any supplemental oxygen. She presented no coughing or choking she displayed no signs of aspiration and did not struggle with any of the textures presented. At present the patient appears to be safe to begin oral feeding in conjunction with tube feeding. This pathologist is recommending the followin. A pur?ed diet to be administered by the staff. 2. Honey thick liquids presented either by cup or by spoon. 3. The patient may have small amounts of popsicle but in the event that the patient shows any sign of penetration into the laryngeal vestibule this item is to be removed from her diet. #4 this pathologist will contact the ICU staff tomorrow to ensure that the current diet order is safe and both the patient and the staff feel that these recommendations continue to be adequate. Thank you for referring this delightful patient to my attention. James Lozano., C. C. C. Speech pathologist
--- NOTE | 2018-02-14 19:13 | W.PM.PROGNOT ---
Date of service: 02/14/18 Time of Service: 08:00 Assessment and Plan (1) Dysphagia: Current visit: Yes Status: Acute Neurologic: Parkinsonian medications restarted Cardiac: Stable Respiratory: No issues continue pulmonary toilet Gastrointestinal: G-tube in place, bowel regimen implement Renal: Creatinine normal, UTI resolved with course of ciprofloxacin, will remove Mccall today Nutrition//Fluids/electrolytes: Tube feeds progressing to goal, free water started, replace electrolytes as needed Hematology/Oncology: Hemoglobin stable at 7.6, anemia of chronic disease, iron supplementation need Musculoskeletal: Physical therapy working with patient strengthening mobility Pyschiatric: Patient anxious will restart fluoxetine at return to health and rehab Infectious Disease: Afebrile normal white count, antibiotics completed Lines/Tubes/Dressings: We will remove midline at time of discharge, G-tube in place without signs of Disposition: Anticipate discharge back to rehab Subjective Patient reports: tolerating a regular diet (tolerating tube feeds), bowel movement and afebrile; denies shortness of breath Exam Const General: comfortable and frail appearing Nutritional Appearance: malnourished, thin and underweight Orientation: alert, awake and oriented x3 Resp Effort & Inspection: normal respiratory effort, no audible wheezes and not labored Cardio Jugular venous pressure: no JVD Rate: regular rate Rhythm: regular rhythm GI Inspection: non-distended and incision (Wound clean, without infection) Palpation: soft and tender (TTP at g-tube site as expected) Objective Objective Clinical Data: Vital Signs Temperature 36.8 C 02/14/18 15:50 Temperature Source Temporal Artery Scan 02/14/18 15:50 Pulse 85 02/14/18 15:50 Pulse Rhythm Regular 02/14/18 15:50 Pulse 83 02/14/18 15:01 Respiratory Rate 16 02/14/18 15:50 Respiratory Effort 02/14/18 15:50 Respiratory Depth Normal 02/14/18 15:50 Respiratory Pattern Normal 02/14/18 15:50 Blood Pressure 113/58 L 02/14/18 15:01 Blood Pressure Mean 73 02/14/18 15:01 Blood Pressure Position Right Lateral 02/14/18 13:15 Pulse Oximetry 98 02/14/18 15:50 Respiratory End-tidal CO2 33 02/12/18 10:56 Oxygen Delivery Method Room Air 02/14/18 15:50 Oxygen Flow Rate 0 02/14/18 15:50 Fraction of Inspired Oxygen (FIO2) 60 02/12/18 11:26 Pain Level 0 02/14/18 15:50 Comment 02/13/18 02:38 Intake & Output 02/14/18 02/14/18 02/15/18 06:59 18:59 06:59 Intake Total 959.162 / 959.162 630 / 630 Output Total 2200 / 2200 260 / 260 Balance -1240.838 / -1240.838 370 / 370 Weight 56 kg Intake: IV 259.162 / 259.162 200 / 200 Oral 50 / 50 Intake, Tube Feeding Amount 700 / 700 380 / 380 Output: Urine 2175 / 2175 250 / 250 Output, Residual 25 / 25 10 / 10 Other: Urine Color Yellow Yellow Urine Appearance Clear Clear Urine Odor None Comment Mccall intact and draining clear yellow urine, QS. Void at this time. Voiding Methods Diaper Laboratory Results - last 24 hr 02/14/18 02/14/18 06:30 06:30 WBC 5.09 D RBC 2.48 L Hgb 7.6 L Hct 25.0 L MCV 100.8 H MCH 30.6 MCHC 30.4 L RDW 16.4 H Plt Count 252 MPV 9.9 Immature Gran % 0.2 Neutrophils % 63.7 Lymphocytes % 20.8 Monocytes % 10.2 Eosinophils % 4.9 Basophils % 0.2 Absolute Neutrophils 3.24 Absolute Lymphocytes 1.06 L Absolute Monocytes 0.52 Absolute Eosinophils 0.25 Absolute Basophils 0.01 Sodium 136 Potassium 3.8 Chloride 103 Carbon Dioxide 27.2 Anion Gap 5.8 BUN 19 H Creatinine 0.58 Estimated GFR/1.73 m2 >= 60.00 Glucose 109 H Calcium 7.9 L Magnesium 1.4 L
[2018-02-14] MEDS: ACETAMINOPHEN 1,000 MG/100 ML BTL 400 MG IVPB (21:53)
[2018-02-15] VITALS (21 sets, daily range): BP systolic 100–148; BP diastolic 28–85; PULSE 73–91; RESP 9–17; TEMP 36.5–36.6; O2SAT 98–100
[2018-02-15] MEDS: Normal Saline Flush 10 ML SYR IV ×3 (01:29→11:34)
[2018-02-15] MEDS: ACETAMINOPHEN 1,000 MG/100 ML BTL 400 MG IVPB ×3 (05:40→22:30)
[2018-02-15 07:15] LABS: Abs Immature Grans 0.03 k/cumm (0.0-0.09); Absolute Basophil Count 0.03 k/cumm (0.0-0.2); Absolute Eosinophil Count 0.26 k/cumm (0.0-0.7); Absolute Lymphocyte Count 1.03 k/cumm (1.2-3.4); Absolute Monocyte Count 0.41 k/cumm (0.11-0.7); Absolute Neutrophil Count 1.78 k/cumm (1.2-6.7); Basophils % 0.8; Eosinophils % 7.3; HCT 27.1 % (36.0-46.0); HGB 8.2 g/dL (12.0-15.5); Immature Grans % 0.8; Lymphocytes % 29.1; Mean Corp. HGB Concentration 30.3 g/dL (32.0-36.0); Mean Corpuscular Hemoglobin 29.8 pg (27.0-33.0); Mean Corpuscular Volume 98.5 fL (80-95); Mean Platelet Volume 10.2 fL (8.0-11.0); Monocytes % 11.6; Neutrophils % 50.4; Platelet Count 310 x1000/uL (130-400); RBC 2.75 m/cumm (4.00-5.20); White Blood Cell Count 3.54 k/cumm (4.4-10.8)
[2018-02-15 07:20] LABS: Anion Gap 5.1 mmol/L (3-11); BUN 16 mg/dL (7-18); CO2 30.9 mmol/L (21.0-32.0); CREATININE 0.62 mg/dL (0.55-1.02); Calcium 8.1 mg/dL (8.5-10.1); Chloride 102 mmol/L (98-107); Glucose 111 mg/dL (70-100); Magnesium 1.8 mg/dL (1.8-2.4); Potassium 4.6 mmol/L (3.5-5.1); Sodium 138 mmol/L (136-145)
--- NOTE | 2018-02-15 08:10 | W.PM.PROGNOT ---
Date of service: 02/15/18 Time of Service: 08:10 Assessment and Plan (1) Dysphagia: Current visit: Yes Status: Acute Neurologic: Continue Parkinsonian medications crushed and administered through peg tube. Cardiac: Stable, Scheduled for cardiac ultrasound and stress test later today. Respiratory: No issues continue pulmonary toilet Gastrointestinal: G-tube in place, bowel regimen implement Renal: Creatinine normal, UTI resolved with course of ciprofloxacin, Mccall removed. Nutrition//Fluids/electrolytes: Tube feeds at goal, free water started, replace electrolytes as needed Hematology/Oncology: Hemoglobin stable at 8.2, anemia of chronic disease, iron supplementation need Musculoskeletal: Physical therapy working with patient strengthening mobility Pyschiatric: Patient anxious will restart fluoxetine at return to health and rehab Infectious Disease: Afebrile normal white count, antibiotics completed Lines/Tubes/Dressings: We will remove midline at time of discharge, G-tube in place without signs of infection Disposition: Anticipate discharge back to rehab Discussed with Dr. Poe the above assessment and plan, whom agrees with the above. Subjective Patient reports: feels better Interval history since last seen: Jaylyn reports that she is feeling good today, with no complaints of pain or discomfort. She reports some itching around her peg tube side last night that has since resolved. She denies any nausea, vomiting or abdominal pain. Exam Const General: cooperative, comfortable and no acute distress Resp Effort & Inspection: normal respiratory effort Skin Other: Peg tube site- No erythema, edema, discharge or warmth noted in the area. Objective Objective Clinical Data: Abnormal lab results 02/15/18 02/15/18 Range/Units 06:15 06:15 WBC 3.54 L D (4.4-10.8) k/cumm RBC 2.75 L (4.00-5.20) m/cumm Hgb 8.2 L (12.0-15.5) g/dL Hct 27.1 L (36.0-46.0) % MCV 98.5 H (80-95) fL MCHC 30.3 L (32.0-36.0) g/dL RDW 16.0 H (11.7-14.6) % Absolute Lymphocytes 1.03 L (1.2-3.4) k/cumm Glucose 111 H (70-100) mg/dL Calcium 8.1 L (8.5-10.1) mg/dL Vital Signs Temperature 36.6 C 02/15/18 05:40 Temperature Source Temporal Artery Scan 02/15/18 04:00 Pulse 79 02/15/18 06:01 Pulse Rhythm Regular 02/14/18 15:50 Pulse 80 02/15/18 06:01 Respiratory Rate 11 L 02/15/18 06:01 Respiratory Effort 02/15/18 04:00 Respiratory Depth Normal 02/15/18 04:00 Respiratory Pattern Normal 02/15/18 04:00 Blood Pressure 104/51 L 02/15/18 06:01 Blood Pressure Mean 62 02/15/18 06:01 Blood Pressure Position Right Lateral 02/15/18 04:00 Pulse Oximetry 100 02/15/18 06:01 Respiratory End-tidal CO2 33 02/12/18 10:56 Oxygen Delivery Method Room Air 02/15/18 04:00 Oxygen Flow Rate 0 02/15/18 04:00 Fraction of Inspired Oxygen (FIO2) 60 02/12/18 11:26 Pain Level 0 02/15/18 05:40 Comment 02/13/18 02:38 Intake & Output 02/14/18 02/14/18 02/15/18 11:59 23:59 11:59 Intake Total 485 / 485 850 / 850 712 / 712 Output Total 1160 / 1160 Balance -675 / -675 835 / 835 702 / 702 Weight 56 kg 51.3 kg Intake: IV 200 / 200 300 / 300 250 / 250 Oral 50 / 50 Intake, Tube Feeding Amount 285 / 285 500 / 500 462 / 462 Output: Urine 1150 / 1150 Output, Residual Other: Urine Color Yellow Yellow Urine Appearance Clear Clear Clear Urine Odor None Normal Comment folwy draining clear yellow urine Incont of urine at this time. Skin care done, justin applied with attends in place. Incont of a large amount of urine at this time. Skin care done, justin applied with attends in place. Voiding Methods Diaper Diaper Incontinent Laboratory Results WBC 3.54 k/cumm (4.4-10.8) L D 02/15/18 06:15 RBC 2.75 m/cumm (4.00-5.20) L 02/15/18 06:15 Hgb 8.2 g/dL (12.0-15.5) L 02/15/18 06:15 Hct 27.1 % (36.0-46.0) L 02/15/18 06:15 MCV 98.5 fL (80-95) H 02/15/18 06:15 MCH 29.8 pg (27.0-33.0) 02/15/18 06:15 MCHC 30.3 g/dL (32.0-36.0) L 02/15/18 06:15 RDW 16.0 % (11.7-14.6) H 02/15/18 06:15 Plt Count 310 x1000/uL (130-400) 02/15/18 06:15 MPV 10.2 fL (8.0-11.0) 02/15/18 06:15 Immature Gran % 0.8 02/15/18 06:15 Neutrophils % 50.4 02/15/18 06:15 Lymphocytes % 29.1 02/15/18 06:15 Monocytes % 11.6 02/15/18 06:15 Eosinophils % 7.3 02/15/18 06:15 Basophils % 0.8 02/15/18 06:15 Absolute Neutrophils 1.78 k/cumm (1.2-6.7) 02/15/18 06:15 Absolute Lymphocytes 1.03 k/cumm (1.2-3.4) L 02/15/18 06:15 Absolute Monocytes 0.41 k/cumm (0.11-0.7) 02/15/18 06:15 Absolute Eosinophils 0.26 k/cumm (0.0-0.7) 02/15/18 06:15 Absolute Basophils 0.03 k/cumm (0.0-0.2) 02/15/18 06:15 PT 11.4 sec (9.3-10.8) H 02/08/18 06:40 INR 1.2 (1.0-3.5) 02/08/18 06:40 APTT 29.2 sec (21.0-31.4) 02/08/18 06:40 D-Dimer 1038 ng/mlFEU (<500) H 02/09/18 14:00 Sodium 138 mmol/L (136-145) 02/15/18 06:15 Potassium 4.6 mmol/L (3.5-5.1) D 02/15/18 06:15 Chloride 102 mmol/L (98-107) 02/15/18 06:15 Carbon Dioxide 30.9 mmol/L (21.0-32.0) 02/15/18 06:15 Anion Gap 5.1 mmol/L (3-11) 02/15/18 06:15 BUN 16 mg/dL (7-18) 02/15/18 06:15 Creatinine 0.62 mg/dL (0.55-1.02) 02/15/18 06:15 Estimated GFR/1.73 m2 >= 60.00 (mL/min/1.73m2) 02/15/18 06:15 Glucose 111 mg/dL (70-100) H 02/15/18 06:15 Lactate 0.9 mmol/L (0.6-1.4) 02/09/18 14:00 Calcium 8.1 mg/dL (8.5-10.1) L 02/15/18 06:15 Phosphorus 2.1 mg/dL (2.6-4.7) L 02/09/18 14:00 Magnesium 1.8 mg/dL (1.8-2.4) 02/15/18 06:15 Iron 24 ug/dL (50-175) L 02/10/18 16:00 TIBC 218 ug/dL (250-450) L 02/10/18 16:00 Transferrin % Sat 11 % (15-50) L 02/10/18 16:00 Ferritin 464 ng/mL (8-388) H 02/10/18 16:00 Total Bilirubin 0.5 mg/dL (0.2-1.0) 02/08/18 06:40 AST 12 U/L (15-37) L 02/08/18 06:40 ALT 10 U/L (12-78) L 02/08/18 06:40 Alkaline Phosphatase 79 U/L (46-116) 02/08/18 06:40 Creatine Kinase 26 U/L (26-192) 02/06/18 12:20 Troponin I < 0.02 ng/mL (0.00-0.06) 02/11/18 18:15 Total Protein 5.7 g/dL (6.4-8.2) L 02/08/18 06:40 Albumin 2.7 g/dL (3.4-5.0) L 02/08/18 06:40 Vitamin B12 973 pg/mL (193-986) 02/10/18 16:00 Folate 11.6 ng/mL (8.6-20.0) 02/10/18 16:00 TSH 0.21 uIU/mL (0.358-3.74) L 02/11/18 06:35 Free T4 1.27 ng/dL (0.76-1.46) 02/12/18 06:15 Urine Color Yellow (Yellow) 02/06/18 13:15 Urine Clarity Cloudy 02/06/18 13:15 Urine pH 5.5 (5-8) 02/06/18 13:15 Ur Specific [place] >= 1.030 (1.005-1.025) H 02/06/18 13:15 Urine Protein 30 mg/dL (Negative) H 02/06/18 13:15 Urine Ketones 15 mg/dL (Negative) H 02/06/18 13:15 Urine Blood Trace-intact (Negative) H 02/06/18 13:15 Urine Nitrite Negative (Negative) 02/06/18 13:15 Urine Bilirubin Negative (Negative) 02/06/18 13:15 Urine Urobilinogen 0.2 EU/dL (Up TO 0.2) 02/06/18 13:15 Ur Leukocyte Esterase Large (Negative) H 02/06/18 13:15 Urine RBC 0-2 (0-2) 02/06/18 13:15 Urine WBC >50 HPF (0-5) 02/06/18 13:15 Ur Epithelial Cells Few HPF (Negative) 02/06/18 13:15 Urine Crystals Negative HPF (Negative) 02/06/18 13:15 Urine Bacteria Many HPF (Negative) 02/06/18 13:15 Urine Casts Negative LPF (Negative) 02/06/18 13:15 Urine Mucus Negative (Negative) 02/06/18 13:15 Ur Culture Indicated? Yes 02/06/18 13:15 Urine Glucose Negative mg/dL (Negative) 02/06/18 13:15
[2018-02-15] MEDS: Polyethylene Glycol 3350 17 GM PACKET PO (08:16)
[2018-02-15] MEDS: Docusate Sodium 100 MG/10 ML CUP PO ×2 (08:16→20:07)
[2018-02-15] MEDS: FLUoxetine 20 MG CAP PO (08:17)
[2018-02-15] MEDS: Carbidopa 25/Levodopa 100 TAB PO ×3 (08:17→20:07)
[2018-02-15] MEDS: rOPINIRole 0.5 MG TAB 0.25 MG PO ×3 (08:17→20:07)
[2018-02-15] MEDS: Magnesium Oxide 400 MG TAB PO ×3 (08:38→09:20)
--- NOTE | 2018-02-15 11:01 | PT.INTREAT ---
Date of service: 02/15/18 Time of Service: 11:01 PT Notes Inpatient Physical Therapy Treatment Note Date: 02/15/18 PRECAUTIONS:Fall precautions SUBJECTIVE: Pt lying in bed, agreeable to PT session. OBJECTIVE: General observation: PEG tube (RN disconnected for session and reconnected after session), telemetry, ) 02/BP monitors PAIN: no c/o pain BED MOBILITY/TRANSFERS: Supine-sit: HOB 40 degrees maxA for hips to edge of bed and trunk to sitting Sit-stand: maxAx1 with STEDY lift, max A for positioning legs and feet in lift, assist for reaching to STEDY bar to get to standing Bed-chair: maxA with STEDY Stand-sit: maxA GAIT: * max A to don socks/shoes for gait/standing activities maxA with STEDY lift standing at chair side 2x for 1min, transferred to chair with STEDY lift. Positioned up in chair with pillows behind head and under UE's BALANCE: Static sitting normal Dynamic Sitting normal Static Standing poor Dynamic Standing poor THEREX: Performed stretching to bilateral shoulder flexors, elbow extensors, hip abductors, gastroc/achilles tendons 30 sec holds. Pt able to attain DF neutral in sitting position in chair after stretch. ASSESSMENT: Pt with increased UE tremors today. Improved hip and knee extension for standing in STEDY lift, able to stand for 2- 1min durations to activate LE musculature. Trunk balance decreased today, leaning to left more than yesterday, not yet ready to progress to transfers with FWW, would like to see increased postural control and LE strength in standing postions in STEDY first. PLAN: Progress strengthening Progress standing duration to 3min TREATMENT CODE/TIME: 25min Tax1 TPx1 11:00 Blanca Akhtar PT
--- NOTE | 2018-02-15 11:04 | PTTR_ITS ---
Date of service: 02/15/18 Time of Service: 11:01 PT Notes Inpatient Physical Therapy Treatment Note Date: 02/15/18 PRECAUTIONS:Fall precautions SUBJECTIVE: Pt lying in bed, agreeable to PT session. OBJECTIVE: General observation: PEG tube (RN disconnected for session and reconnected after session), telemetry, ) 02/BP monitors PAIN: no c/o pain BED MOBILITY/TRANSFERS: Supine-sit: HOB 40 degrees maxA for hips to edge of bed and trunk to sitting Sit-stand: maxAx1 with STEDY lift, max A for positioning legs and feet in lift , assist for reaching to STEDY bar to get to standing Bed-chair: maxA with STEDY Stand-sit: maxA GAIT: * max A to don socks/shoes for gait/standing activities maxA with STEDY lift standing at chair side 2x for 1min, transferred to chair with STEDY lift. Positioned up in chair with pillows behind head and under UE's BALANCE: Static sitting normal Dynamic Sitting normal Static Standing poor Dynamic Standing poor THEREX: Performed stretching to bilateral shoulder flexors, elbow extensors, hip abductors, gastroc/achilles tendons 30 sec holds. Pt able to attain DF neutral in sitting position in chair after stretch. ASSESSMENT: Pt with increased UE tremors today. Improved hip and knee extension for standing in STEDY lift, able to stand for 2- 1min durations to activate LE musculature. Trunk balance decreased today, leaning to left more than yesterday , not yet ready to progress to transfers with FWW, would like to see increased postural control and LE strength in standing postions in STEDY first. PLAN: Progress strengthening Progress standing duration to 3min TREATMENT CODE/TIME: 25min Tax1 TPx1 11:00 Blanca Akhtar PT
--- NOTE | 2018-02-15 11:05 | MERGEMPI_ITS ---
*[facility]* *[facility]* [address] [place] [address] Myocardial Perfusion Imaging - SPECT Regadenoson Date of study: 02/15/2018 *PATIENT PRESENTATION* Height: 160cm (63in) Blood Pressure: Weight: 51.4kg (113lb) BSA: 1.51m^2 Ordering physician: Dick Nicole Impressions: Normal study after pharmacologic stress. Summary: 1. Myocardial perfusion imaging: No myocardial perfusion defects noted. 2. The calculated left ventricular ejection fraction after stress: 49%. LV global systolic function is low normal. There is hypokinesis involving the inferior wall(s) of the left ventricle. Recommendations: Correlate EF with echo. Indication: R94.31. History: Patient's presenting symptoms: asymptomatic. REASON FOR VISIT: PATIENT ADMITTED 02/06/18 FOR EVALUATION OF FEVER, DISCOVERED JUST PRIOR TO SCHEDULED PERCUTANEOUS GASTROSTOMY TUBE PLACEMENT. PRIOR TO RESCHEDULED PEG TUBE PLACEMENT ON 02/09/18 SHE HAD RAPID ONSET ACUTE HYPOXIC RESPIRATORY FAILURE WITH TRANSIENT CARDIACT ARREST, LIKELY CAUSED BY INTUBATION OF THE RIGHT MAINSTEM BRONCHUS. EKG PRIOR TO PROCEDURE SHOWED DIFFUSE ST SEGMENT CHANGES. REPEAT EKG 40 MINUTES LATER WAS NORMAL AND BACK TO BASELINE, WITH TROPONINS NEGATIVE X 3. ECHOCARDIOGRAM 02/12/18: ESTIMATED EJECTION FRACTION 60-65%. MODERATE HYPOKINESIS OF THE SEPTAL MYOCARDIUM. PAST MEDICAL HISTORY: PARKINSON'S DISEASE. ANEMIA. DYSPHAGIA. ESSENTIAL HYPERTENSION. HISTORY OF DIC SYNDROME. HYPERLIPIDEMIA. OSTEOARTHRITIS. TOXIC METABOLIC ENCEPHALOPATHY. ACUTE KIDNEY INJURY. NON-ST ELEVATION CO. NEUROGENIC DYSFUNCTION OF THE URINARY BLADDER. FAMILY HISTORY: MOTHER AND FATHER - ACUTE MYOCARDIAL INFARCTION. SMOKING STATUS: NEVER SMOKER. EXERCISE ROUTINE: NONE. Risk factors: Family history of coronary artery disease. Hypertension. Dyslipidemia. Cholesterol: 203mg/dl. HDL: 60mg/dl. LDL: 113mg/dl. Triglycerides: 172mg/dl. ALLERGIES: ENVIRONMENTAL. MEDICATIONS: ACETAMINOPHEN 650MG, PRN. AMANTADINE HCL 200MG, BID. BACLOFEN 10MG, HS PRN. CALCIUM CARBONATE, PRN. CARBIDOPA-LEVODOPA, TID. FLUOXETINE 20MG, DAILY. MELATONIN 3MG, HS PRN. NAPROXEN SODIUM 220MG, Q12H. OMEPRAZOLE 20MG, DAILY. ONDANSETRON HCL 4MG, PRN. PROPRANOLOL 40MG, DAILY. ROPINIROLE 0.25MG, TID. TOLTERODINE 2MG, BID. Imaging Technique: Protocol: Regadenoson. Acquisition: Gated SPECT; 1 day - rest/stress. The patient was imaged in the supine position. Attenuation correction used. Isotope administration: - Rest. Tc[99m]-sestamibi. Dose: 10.1mCi. Injection time: 11:00 AM. Injection to stress time: 00:45. - Stress. Tc[99m]-sestamibi. Dose: 31.5mCi. Injection time: 01:00 PM. 1-2 min before end of exercise Baseline ECG: SINUS RHYTHM, INVERTED T WAVE LEAD V1. HEART RATE 83 BPM. Stress protocol: +--------+---+ + + !Stage !HR !BP (mmHg) !Comments ! +--------+---+ + + !Baseline!83 !108/64 (79)! ! +--------+---+ + + !1 min !102!108/62 (77)!Inject Regadenoson.! +--------+---+ + + !3 min !102!122/62 (82)! ! +--------+---+ + + !6 min !98 !124/68 (87)! ! +--------+---+ + + * Stress results: The rate-pressure product for the peak heart rate and blood pressure was 80979xd Hg/min. Stress ECG: STRESS TEST ENDED IN 6MIN 4 SEC AFTER ALL EFFECTS OF REGADENOSON ADMINISTRATION HAD WORN OFF. APPROPRIATE HEART RATE AND BLOOD PRESSURE RESPONSE TO REGADENOSON INJECTION. NO ECTOPY NOTED. NO ANGINA REPORTED. NO SIGNIFICANT ST SEGMENT CHANGES. Myocardial perfusion: Imaging information: gated. Left ventricular size is normal. No myocardial perfusion defects noted. Ventricular Function (Wall Motion): The calculated left ventricular ejection fraction after stress: 49%. LV global systolic function is low normal. There is hypokinesis involving the inferior wall(s) of the left ventricle. Study data: Luis Alberto Aguilar MD supervised and was readily available during the procedure. This study was interpreted by [facility]. Study status: Routine. Consent: The risks, benefits, and alternatives to the procedure were explained to the patient and informed consent was obtained. Procedure: Initial setup. A baseline ECG was recorded. Surface ECG leads and manual cuff blood pressure measurements were monitored. Heart sounds: Normal. Lung sounds: Normal. Regadenoson stress test. Stress testing was performed, with regadenoson by intravenous bolus, for a total dose of 0.4mgover 10.00sec, followed by a 5ml saline flush. The infusion was terminated due to per protocol. The patient was unable to exercise due to other circumstances. The patient was unable to exercise due to PARKINSON'S DISEASE. Study completion: All catheters inserted during the procedure were removed. The patient tolerated the procedure well and was discharged from the lab. Discharge: The patient left the laboratory in stable condition. Birthdate: Patient birthdate: 1965. Sex: Gender: female. Study date: Study date: 02/15/2018. Study time: 11:05 AM. Signature Documentation: - The imaging portion of this study was interpreted by [employer] Luis Alberto Aguilar MD. - The imaging portion of this study was interpreted by Nuclear [employer] Sarah Small MD. - The Stress ECG portion of this study was interpreted by Luis Alberto Aguilar MD. Electronically signed by Luis Alberto Aguilar 02/15/2018 15:18
[2018-02-15] MEDS: Pantoprazole 40 MG VIAL IVP (11:34)
--- NOTE | 2018-02-15 12:34 | W.PM.PROGNOT ---
Assessment and Plan (1) Abnormal EKG: Current visit: Yes Status: Resolved EKG at 9:30 am on 02/11 performed by Anesthesia with NSR, diffuse ST Segment abnormalities that indicated potential acute infarct in the anteroseptal, inferior regions. Patient was immediately started on a heparin gtt, BB, ASA, and high potency statin therapy, with repeat troponins ordered. However, repeat EKG performed at 10:24 am was completely normal and without any changes from baseline or any signs of ischemia. Initial and follow-up troponins were negative. All of the above medications were discontinued. 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 Asked cardiology for input as well, with recommendations for a nuclear stress test - ordered and pending for later today. (2) Respiratory distress, acute: Current visit: No Status: Acute Resolved. Likely precipitated by inadvertant intubation of the right mainstem bronchus prior to planned PEG tube placement. Currently resolved. Patient was maintained on mechanical ventilation, with PEG tube placed on 02/11. Now successfully extubated. (3) UTI (urinary tract infection): Current visit: Yes Status: Acute Treated with Ciprofloxacin X5 days. Urine Culture with Enterobacter Cloacae, sensitive to Fluoroquinolone therapy. (4) Parkinsons disease: Current visit: Yes Status: Chronic Continue home antiparkinsonian medications. (5) Dysphagia: Current visit: Yes Status: Acute Underwent successful PEG tube placement 02/11. TF's as per surgery. Also on diet of Pureed Honey Thick Liquid consistency as per speech recommendations. (6) Anemia: Current visit: Yes Status: Chronic Appears to be anemia of chronic disease, with low iron/TIBC and elevated Ferritin. B12 and FA normal. TSH mildly low but checked during acute illness - FT4 checked and normal. Stool for occult blood ordered but still pending. Current Hgb low with drop post PEG tube, but remains stable. Monitor closely. Also initiated PPI therapy. (7) DVT prophylaxis: Current visit: No Status: Chronic SC Lovenox. Subjective Patient reports: shortness of breath and other (Acute respiratory failure) Interval history since last seen: 52-year-old woman with a PMHx significant for severe PD with concurrent dysphasia and prior aspiration of food, weight loss, and malnutrition, admitted to [facility] on 02/06/2018 for a planned elective PEG tube placement. Ms. So is a resident at nearby health and rehab facility. She has significant dysphagia, and was admitted in September of this year following a significant aspiration event. She was admitted for percutaneous gastrostomy tube placement, but found to be febrile and with a UTI, and remains on antibiotic therapy. She was scheduled for PEG-tube placement on 02/09, but prior to the procedure in the OR, she had rapid onset acute hypoxic respiratory failure with transient cardiac arrest. This did not last longer than 1-2 minutes, and she quickly rebounded with no significant interventions. The cause of her transient respiratory distress appears to have been inadvertant intubation of the right mainstem bronchus. The patient also had fevers a few nights ago. Blood Cultures were obtained, and a bed side CXR was obtained and negative for any acute abnormalities. She has been afebrile since that time. Prior to her PEG tube placement anesthesia noted potential changes on telemetry and ordered and EKG, which showed fairly diffuse ST segment changes. A stat repeat troponin was checked and normal, and the patient subsequently ruled out with serial cardiac biomarkers. A repeat EKG was performed approximately 30-40 minutes later which was also completely normal and back to baseline. She is scheduled for a nuclear stress today as per cardiology recommendations. Ms. So was taken to the OR for a successful PEG tube placement, and has since been initiated on TF's, now at goal and without further high residuals. She was successfully extubated, and appears to be at her baseline mental status. Speech Therapy evaluated her as well, with recommendations for a pureed diet. She remains afebrile, and blood pressures have been reasonable. No other overnight events reported. Exam Narrative Exam Narrative: GEN: Awake, Alert, Oriented X3. Noted tremors from PD, appear unchanged from baseline. Neck: Supple Pulm: Clear to auscultation without wheezes. Minimal bibasilar crackles on limited exam. CV: regular without murmur rub or gallop, regular rate Abdomen: +BS, soft and nontender. Vasc: Lower extremities without peripheral cyanosis or edema Objective Objective Clinical Data: Abnormal lab results 02/15/18 02/15/18 Range/Units 06:15 06:15 WBC 3.54 L D (4.4-10.8) k/cumm RBC 2.75 L (4.00-5.20) m/cumm Hgb 8.2 L (12.0-15.5) g/dL Hct 27.1 L (36.0-46.0) % MCV 98.5 H (80-95) fL MCHC 30.3 L (32.0-36.0) g/dL RDW 16.0 H (11.7-14.6) % Absolute Lymphocytes 1.03 L (1.2-3.4) k/cumm Glucose 111 H (70-100) mg/dL Calcium 8.1 L (8.5-10.1) mg/dL Vital Signs Temperature 36.5 C 02/15/18 08:30 Temperature Source Tympanic 02/15/18 08:30 Pulse 89 02/15/18 11:18 Pulse Rhythm Regular 02/14/18 15:50 Pulse 89 02/15/18 11:18 Respiratory Rate 9 L 02/15/18 11:18 Respiratory Effort 02/15/18 08:30 Respiratory Depth Shallow 02/15/18 08:30 Respiratory Pattern Normal 02/15/18 08:30 Blood Pressure 110/71 02/15/18 11:18 Blood Pressure Mean 78 02/15/18 11:18 Blood Pressure Position Right Lateral 02/15/18 08:30 Pulse Oximetry 100 02/15/18 11:00 Respiratory End-tidal CO2 33 02/12/18 10:56 Oxygen Delivery Method Room Air 02/15/18 08:30 Oxygen Flow Rate 0 02/15/18 08:30 Fraction of Inspired Oxygen (FIO2) 60 02/12/18 11:26 Pain Level 0 02/15/18 08:30 Comment 02/13/18 02:38 Intake & Output 02/14/18 02/15/18 02/15/18 23:59 11:59 23:59 Intake Total 850 / 850 824 / 824 Output Total Balance 835 / 835 809 / 809 Weight 51.3 kg Intake: IV 300 / 300 250 / 250 Oral 50 / 50 Intake, Tube Feeding Amount 500 / 500 574 / 574 Output: Output, Residual Other: Urine Color Yellow Urine Appearance Clear Clear Urine Odor None Normal Comment Incont of urine at this time. Skin care done, justin applied with attends in place. Incont of a large amount of urine at this time. Skin care done, justin applied with attends in place. Voiding Methods Diaper Diaper Incontinent Laboratory Results WBC 3.54 k/cumm (4.4-10.8) L D 02/15/18 06:15 RBC 2.75 m/cumm (4.00-5.20) L 02/15/18 06:15 Hgb 8.2 g/dL (12.0-15.5) L 02/15/18 06:15 Hct 27.1 % (36.0-46.0) L 02/15/18 06:15 MCV 98.5 fL (80-95) H 02/15/18 06:15 MCH 29.8 pg (27.0-33.0) 02/15/18 06:15 MCHC 30.3 g/dL (32.0-36.0) L 02/15/18 06:15 RDW 16.0 % (11.7-14.6) H 02/15/18 06:15 Plt Count 310 x1000/uL (130-400) 02/15/18 06:15 MPV 10.2 fL (8.0-11.0) 02/15/18 06:15 Immature Gran % 0.8 02/15/18 06:15 Neutrophils % 50.4 02/15/18 06:15 Lymphocytes % 29.1 02/15/18 06:15 Monocytes % 11.6 02/15/18 06:15 Eosinophils % 7.3 02/15/18 06:15 Basophils % 0.8 02/15/18 06:15 Absolute Neutrophils 1.78 k/cumm (1.2-6.7) 02/15/18 06:15 Absolute Lymphocytes 1.03 k/cumm (1.2-3.4) L 02/15/18 06:15 Absolute Monocytes 0.41 k/cumm (0.11-0.7) 02/15/18 06:15 Absolute Eosinophils 0.26 k/cumm (0.0-0.7) 02/15/18 06:15 Absolute Basophils 0.03 k/cumm (0.0-0.2) 02/15/18 06:15 PT 11.4 sec (9.3-10.8) H 02/08/18 06:40 INR 1.2 (1.0-3.5) 02/08/18 06:40 APTT 29.2 sec (21.0-31.4) 02/08/18 06:40 D-Dimer 1038 ng/mlFEU (<500) H 02/09/18 14:00 Sodium 138 mmol/L (136-145) 02/15/18 06:15 Potassium 4.6 mmol/L (3.5-5.1) D 02/15/18 06:15 Chloride 102 mmol/L (98-107) 02/15/18 06:15 Carbon Dioxide 30.9 mmol/L (21.0-32.0) 02/15/18 06:15 Anion Gap 5.1 mmol/L (3-11) 02/15/18 06:15 BUN 16 mg/dL (7-18) 02/15/18 06:15 Creatinine 0.62 mg/dL (0.55-1.02) 02/15/18 06:15 Estimated GFR/1.73 m2 >= 60.00 (mL/min/1.73m2) 02/15/18 06:15 Glucose 111 mg/dL (70-100) H 02/15/18 06:15 Lactate 0.9 mmol/L (0.6-1.4) 02/09/18 14:00 Calcium 8.1 mg/dL (8.5-10.1) L 02/15/18 06:15 Phosphorus 2.1 mg/dL (2.6-4.7) L 02/09/18 14:00 Magnesium 1.8 mg/dL (1.8-2.4) 02/15/18 06:15 Iron 24 ug/dL (50-175) L 02/10/18 16:00 TIBC 218 ug/dL (250-450) L 02/10/18 16:00 Transferrin % Sat 11 % (15-50) L 02/10/18 16:00 Ferritin 464 ng/mL (8-388) H 02/10/18 16:00 Total Bilirubin 0.5 mg/dL (0.2-1.0) 02/08/18 06:40 AST 12 U/L (15-37) L 02/08/18 06:40 ALT 10 U/L (12-78) L 02/08/18 06:40 Alkaline Phosphatase 79 U/L (46-116) 02/08/18 06:40 Creatine Kinase 26 U/L (26-192) 02/06/18 12:20 Troponin I < 0.02 ng/mL (0.00-0.06) 02/11/18 18:15 Total Protein 5.7 g/dL (6.4-8.2) L 02/08/18 06:40 Albumin 2.7 g/dL (3.4-5.0) L 02/08/18 06:40 Vitamin B12 973 pg/mL (193-986) 02/10/18 16:00 Folate 11.6 ng/mL (8.6-20.0) 02/10/18 16:00 TSH 0.21 uIU/mL (0.358-3.74) L 02/11/18 06:35 Free T4 1.27 ng/dL (0.76-1.46) 02/12/18 06:15 Urine Color Yellow (Yellow) 02/06/18 13:15 Urine Clarity Cloudy 02/06/18 13:15 Urine pH 5.5 (5-8) 02/06/18 13:15 Ur Specific [place] >= 1.030 (1.005-1.025) H 02/06/18 13:15 Urine Protein 30 mg/dL (Negative) H 02/06/18 13:15 Urine Ketones 15 mg/dL (Negative) H 02/06/18 13:15 Urine Blood Trace-intact (Negative) H 02/06/18 13:15 Urine Nitrite Negative (Negative) 02/06/18 13:15 Urine Bilirubin Negative (Negative) 02/06/18 13:15 Urine Urobilinogen 0.2 EU/dL (Up TO 0.2) 02/06/18 13:15 Ur Leukocyte Esterase Large (Negative) H 02/06/18 13:15 Urine RBC 0-2 (0-2) 02/06/18 13:15 Urine WBC >50 HPF (0-5) 02/06/18 13:15 Ur Epithelial Cells Few HPF (Negative) 02/06/18 13:15 Urine Crystals Negative HPF (Negative) 02/06/18 13:15 Urine Bacteria Many HPF (Negative) 02/06/18 13:15 Urine Casts Negative LPF (Negative) 02/06/18 13:15 Urine Mucus Negative (Negative) 02/06/18 13:15 Ur Culture Indicated? Yes 02/06/18 13:15 Urine Glucose Negative mg/dL (Negative) 02/06/18 13:15
[2018-02-15] MEDS: Regadenoson 0.4 MG/5 ML SYR IVP (12:54)
--- NOTE | 2018-02-15 12:59 | WOUNDCARE ---
Wound Care Report Pt seen in ICU, currently in bed. She greets me with a smile, is A&Ox3, and agreeable to a wound consult. Medical Hx reviewed, see H&P by MD for complete details. No obvious barriers to Tx based on Dx @ this time. Upon assessment Mepilex was removed. Pt's buttox, sacral area and groin were noted to have what appears to be scattered Incontinence Associated Dermatitis (IAD) with probable adverse microclimate contributing to her skin problem. Red, slightly raised rash noted in groin folds and inner thighs, appears to be heat rash. Scattered superficial skin loss was noted on sacral area, feel free to refer to photograph in Pt's chart for better visual. Tana test was preformed on entire area, all was blanchable except noted stage 1 area measuring 1x0.8, located just superior to coccyx. Treatment recommendation for IAD is application of moisture barrier cream to affected area with each diaper change and PRN. Turn Q2H to prevent stage 1 pressure ulcer from advancing further. Turning will also assist in maintaining appropriate microclimate. Thank you for the consult.
--- NOTE | 2018-02-15 13:28 | CMPROGNOTE_ITS ---
- If Service Date Differs Date of service: 02/15/18 Time of Service: 13:25 Care Management Progress Note S/O: CM spoke with HITESH Denson, this morning whom states that Jaylyn is scheduled for a stress test today and will potentially be ready for return to [facility] tomorrow. CM notified Brennon [facility], that Jaylyn will most likely be ready for DC tomorrow and will transport via [facility]. A: 52 y/o female admitted 02/06/18 for dysphagia P: Jaylyn will return to [facility] once medically cleared. Transportation: EMS [facility] van TBD central to level of functioning and safety per MD.
[2018-02-15] MEDS: Enoxaparin 40 MG/0.4 ML SYR SC (13:48)
--- NOTE | 2018-02-15 14:21 | PT.INNT ---
Date of service: 02/15/18 Time of Service: 13:01 PT Notes PHYSICAL THERAPY NOTE 02/15/18 Pt at stress test this afternoon, resume PT in am Blanca Akhtar PT
--- NOTE | 2018-02-15 16:07 | W.SPEECHPG ---
Date of service: 02/15/18 Time of Service: 13:08 Speech Therpy Note Note: This is a progress note for Jaylyn Sahu. The patient has had very little oral intake this day but she reports that she safely took a pudding without difficulty she has also according to the nursing staff had honey thick liquids. The patient is in a supine position but was elevated so that her head was at approximately 100 degrees. She requested a popsicle and was able to finish the frozen treat without coughing or choking and actually took several bites of the popsicle and swallowed them. This pathologist will attempt to assess the patient on a level 2 diet and nectar thick liquids over the next 48 hours if the patient remains at [facility]. She continues to be alert and cooperative and her speech continues to be intelligible. She offers no complaints of pain from the surgical site and did note that she felt full for the first time in quite some time. James Lozano., C. C. C. Speech pathologist
[2018-02-15] MEDS: traMADol 50 MG TAB PO (22:31)
[2018-02-15] MEDS: Baclofen 10 MG TAB PO (22:32)
[2018-02-16] VITALS (9 sets, daily range): BP systolic 100–115; BP diastolic 47–68; PULSE 71–77; RESP 11–17; TEMP 36.1–36.6; O2SAT 100
[2018-02-16] MEDS: ACETAMINOPHEN 1,000 MG/100 ML BTL 400 MG IVPB (05:26)
[2018-02-16] MEDS: Normal Saline 500 ML 30 ML IV (05:30)
[2018-02-16 07:13] LABS: Abs Immature Grans 0.02 k/cumm (0.0-0.09); Absolute Basophil Count 0.03 k/cumm (0.0-0.2); Absolute Eosinophil Count 0.21 k/cumm (0.0-0.7); Absolute Lymphocyte Count 1.13 k/cumm (1.2-3.4); Absolute Monocyte Count 0.46 k/cumm (0.11-0.7); Absolute Neutrophil Count 1.47 k/cumm (1.2-6.7); Basophils % 0.9; Eosinophils % 6.3; HCT 26.7 % (36.0-46.0); HGB 8.2 g/dL (12.0-15.5); Immature Grans % 0.6; Mean Corp. HGB Concentration 30.7 g/dL (32.0-36.0); Mean Corpuscular Hemoglobin 30.4 pg (27.0-33.0); Mean Corpuscular Volume 98.9 fL (80-95); Mean Platelet Volume 10.1 fL (8.0-11.0); Monocytes % 13.9; Neutrophils % 44.3; Platelet Count 313 x1000/uL (130-400); RBC Distribution Width 15.6 % (11.7-14.6); White Blood Cell Count 3.32 k/cumm (4.4-10.8)
[2018-02-16 07:32] LABS: BUN 16 mg/dL (7-18); CREATININE 0.54 mg/dL (0.55-1.02); Calcium 8.6 mg/dL (8.5-10.1); Chloride 101 mmol/L (98-107); Glucose 102 mg/dL (70-100); Magnesium 1.7 mg/dL (1.8-2.4); Potassium 4.9 mmol/L (3.5-5.1); Sodium 136 mmol/L (136-145)
[2018-02-16 08:27] LABS: Diff Comment Agrees w/ Instrument
[2018-02-16 08:28] LABS: RBC Morphology Normal
[2018-02-16] MEDS: Docusate Sodium 100 MG/10 ML CUP PO (08:45)
[2018-02-16] MEDS: rOPINIRole 0.5 MG TAB 0.25 MG PO (08:45)
[2018-02-16] MEDS: Polyethylene Glycol 3350 17 GM PACKET PO (08:45)
[2018-02-16] MEDS: Magnesium Oxide 400 MG TAB 800 MG PO (08:52)
[2018-02-16] MEDS: Carbidopa 25/Levodopa 100 TAB PO (08:52)
[2018-02-16] MEDS: FLUoxetine 20 MG CAP PO (08:52)
--- NOTE | 2018-02-16 08:59 | W.PM.DS.N ---
Date of service: 02/16/18 Time of Service: 09:00 DS: Diagnosis Discharge Diagnosis (1) Abnormal EKG: Status: Resolved (2) Respiratory distress, acute: Status: Acute (3) UTI (urinary tract infection): Status: Acute (4) Parkinsons disease: Status: Chronic (5) Dysphagia: Status: Acute (6) Anemia: Status: Chronic (7) DVT prophylaxis: Status: Chronic Discharge Plan Disposition Patient Disposition: SNF (LEVEL [facility]) [facility] Condition: Improving Discharge Details Reason For Visit: DYSPHAGIA Admit Date/Time: 02/06/18 11:48 Admit Provider: oTny Lee Attending Provider: Tony Lee Primary Care Provider: Barbara Almaguer Hospital Course Hospital Course: Mrs. So was admitted on 02/06/18 to [facility] for a PEG tube placement. She was noted to have a fever and was admitted for workup of the fever. She was diagnosed with a UTI and treated with Cipro IV. On Monday the she was brought down to the OR for a PEG tube placement. She had been without fevers for over 24 hours at that time. Prior to the start of the procedure the patient Coded and was resuscitated successfully and admitted to the ICU intubated. She had a Cardiac workup that showed no abnormalities. Tropinins were normal. One EKG was abnormal but follow up EKG was normal. On Sunday 02/11 patient had been stable and a PEG tube was successfully placed. She was extubated the next day. Tub Feedings were started. She had high residuals the first day and an abdominal Xray was done which showed constipation. Enemas were prescribed and the patient was able to clear her bowels and then was tolerating her Tube feedings. They were advanced to goal of 55 cc/hr. Patient was started on OT/PT in the hospital. Cardiology consult was obtained. Please see their notes for more information. Stress test was done per Cardiology request on 02/15/18. PLease see stress test results for more information. On Monday02/16/18 patient was medically stable to go back to rehab. Nutrition consults and speech consults were also obtained. Speech recommended a pureed diet and honey thick liquids. Tube feedings are Jevity 1.2 tricia/ml at 55 cc/hr. Home Meds and New Rx's Prescriptions: Continue baclofen 10 MG tablet 10 mg PO HS prn Qty: 30 RF: 0 acetaminophen [Tylenol] 325 MG tablet 650 mg PO Q4H PRN PRNRF: 0 fluoxetine 20 MG capsule 20 mg PO DAILY RF: 0 carbidopa-levodopa [Rytary] 1 EACH capsule, extended release 1 ea PO TID RF: 0 propranolol 40 MG tablet 40 mg PO DAILY RF: 0 tolterodine [Detrol] 2 MG tablet 2 mg PO BID RF: 0 omeprazole 10 MG capsule,delayed release(DR/EC) 20 mg PO DAILY RF: 0 naproxen sodium [Aleve] 220 MG tablet 220 mg PO Q12H RF: 0 amantadine HCl 100 MG tablet 200 mg PO BID RF: 0 polyethylene glycol 3350 17 GM powder in packet 17 gm PO DAILY PRNRF: 0 ropinirole [Requip] 0.25 MG tablet 0.25 mg PO TID 7 Days Qty: 20 RF: 0 melatonin 3 MG tablet 3 mg PO HS PRNRF: 0 magnesium hydroxide [Milk of Magnesia] 30 ML suspension 30 mg PO HS PRNRF: 0 bisacodyl 10 MG suppository 1 supp MT PRN PRNRF: 0 calcium carbonate 500 MG tablet,chewable 1 tab PO Q6H PRNRF: 0 sodium phosphates [Fleet Enema] 118 ML enema 1 btl MT PRN PRNRF: 0 docusate sodium 100 MG capsule 100 mg PO BID PRNRF: 0 ondansetron HCl [Zofran] 4 mg Tablet 4 mg PO Q6H PRN PRNRF: 0 Discharge Instructions Instructions: How to Use and Care for Your PEG Tube (GEN) Additional Instructions: Diet: Jevity 1.2 tricia/ ml- 55 ml an hour Free water 200 cc QID Pureed honey thick diet po as tolerated Referrals: Tony Lee DO [ [facility] STAFF PHYSICIAN] - (Please have patient follow up in 2-[address] lee) Activity:: Activity as Tolerated Equipment/Supplies:: No Equipment Needed Diet:: Other Exam Resp Auscultation: clear to auscultation bilaterally Cardio Rate: regular rate Rhythm: regular rhythm Heart Sounds: no murmurs GI Inspection: other (Peg tube site without erythema or discharge) Auscultation: normal bowel sounds DS: Data Vitals/I&O Vitals and I&O: Vital Signs Temperature 97.0 F L 02/16/18 08:01 Temperature Source Tympanic 02/16/18 08:01 Pulse 76 02/16/18 08:01 Pulse Rhythm Regular 02/14/18 15:50 Pulse 74 02/16/18 08:00 Respiratory Rate 17 02/16/18 08:00 Respiratory Effort 02/16/18 08:01 Respiratory Depth Normal 02/16/18 08:01 Respiratory Pattern Normal 02/16/18 08:01 Blood Pressure 108/68 02/16/18 08:00 Blood Pressure Mean 79 02/16/18 08:00 Blood Pressure Position Left Lateral 02/16/18 00:05 Pulse Oximetry 100 02/16/18 00:05 Respiratory End-tidal CO2 33 02/12/18 10:56 Oxygen Delivery Method Room Air 02/16/18 08:01 Oxygen Flow Rate 0 02/16/18 08:01 Fraction of Inspired Oxygen (FIO2) 60 02/12/18 11:26 Pain Level 0 02/16/18 08:01 Comment 02/13/18 02:38 Intake & Output 02/15/18 02/15/18 02/16/18 11:59 23:59 11:59 Intake Total 824 / 824 1134 / 1134 372 / 372 Output Total 260 / 260 5 / 5 Balance 809 / 809 874 / 874 367 / 367 Weight 113 lb 1.554 oz 113 lb 15.664 oz Intake: IV 250 / 250 200 / 200 122 / 122 Oral 360 / 360 30 / 30 Intake, Tube Feeding Amount 574 / 574 574 / 574 220 / 220 Output: Urine 250 / 250 Output, Residual 10 / 10 5 / 5 Other: Urine Color Yellow Urine Appearance Clear Urine Odor Normal Comment Large urinary incontinence. Incontinent care given. Large urinary incontinence. Incontinent care given, charla to sacrum.. Large urinary incontinence. Incontinent care given, Charla applied. Voiding Methods Incontinent Incontinent Incontinent Pending studies at discharge: Bed Mobility Treatment using Assistive, Adaptive, Supportive or Protective Equipment (10/08/17) Drainage of Spinal Canal, Percutaneous Approach, Diagnostic (01/04/18) Drainage of Stomach with Drainage Device, Via Natural or Artificial Opening (01/04/18) Gait Training/Functional Ambulation Treatment using Assistive, Adaptive, Supportive or Protective Equipment (10/08/17) Introduction of Other Therapeutic Substance into Respiratory Tract, Via Natural or Artificial Opening (01/04/18) Monitoring of Cardiac Electrical Activity, External Approach (01/04/18) Monitoring of Central Nervous Electrical Activity, External Approach (01/04/18) Range of Motion and Joint Mobility Treatment of Musculoskeletal System - Whole Body (10/08/17) Removal of Intraluminal Device from Trachea, External Approach (10/08/17) Respiratory Ventilation, Less than 24 Consecutive Hours (10/08/17) Swallowing Dysfunction Treatment (10/08/17) Therapeutic Exercise Treatment of Musculoskeletal System - Whole Body (10/08/17) Transfer Training Treatment using Assistive, Adaptive, Supportive or Protective Equipment (10/08/17) Ultrasonography of Heart with Aorta (01/04/18) WBC 3.32 k/cumm (4.4-10.8) L 02/16/18 06:30 RBC 2.70 m/cumm (4.00-5.20) L 02/16/18 06:30 Hgb 8.2 g/dL (12.0-15.5) L 02/16/18 06:30 Hct 26.7 % (36.0-46.0) L 02/16/18 06:30 MCV 98.9 fL (80-95) H 02/16/18 06:30 MCH 30.4 pg (27.0-33.0) 02/16/18 06:30 MCHC 30.7 g/dL (32.0-36.0) L 02/16/18 06:30 RDW 15.6 % (11.7-14.6) H 02/16/18 06:30 Plt Count 313 x1000/uL (130-400) 02/16/18 06:30 MPV 10.1 fL (8.0-11.0) 02/16/18 06:30 Immature Gran % 0.6 02/16/18 06:30 Neutrophils % 44.3 02/16/18 06:30 Lymphocytes % 34.0 02/16/18 06:30 Monocytes % 13.9 02/16/18 06:30 Eosinophils % 6.3 02/16/18 06:30 Basophils % 0.9 02/16/18 06:30 Absolute Neutrophils 1.47 k/cumm (1.2-6.7) 02/16/18 06:30 Absolute Lymphocytes 1.13 k/cumm (1.2-3.4) L 02/16/18 06:30 Absolute Monocytes 0.46 k/cumm (0.11-0.7) 02/16/18 06:30 Absolute Eosinophils 0.21 k/cumm (0.0-0.7) 02/16/18 06:30 Absolute Basophils 0.03 k/cumm (0.0-0.2) 02/16/18 06:30 Differential Comment Agrees w/ instrument 02/16/18 06:30 RBC Morphology Normal 02/16/18 06:30 PT 11.4 sec (9.3-10.8) H 02/08/18 06:40 INR 1.2 (1.0-3.5) 02/08/18 06:40 APTT 29.2 sec (21.0-31.4) 02/08/18 06:40 D-Dimer 1038 ng/mlFEU (<500) H 02/09/18 14:00 Sodium 136 mmol/L (136-145) 02/16/18 06:30 Potassium 4.9 mmol/L (3.5-5.1) 02/16/18 06:30 Chloride 101 mmol/L (98-107) 02/16/18 06:30 Carbon Dioxide 30.0 mmol/L (21.0-32.0) 02/16/18 06:30 Anion Gap 5.0 mmol/L (3-11) 02/16/18 06:30 BUN 16 mg/dL (7-18) 02/16/18 06:30 Creatinine 0.54 mg/dL (0.55-1.02) L 02/16/18 06:30 Estimated GFR/1.73 m2 >= 60.00 (mL/min/1.73m2) 02/16/18 06:30 Glucose 102 mg/dL (70-100) H 02/16/18 06:30 Lactate 0.9 mmol/L (0.6-1.4) 02/09/18 14:00 Calcium 8.6 mg/dL (8.5-10.1) 02/16/18 06:30 Phosphorus 2.1 mg/dL (2.6-4.7) L 02/09/18 14:00 Magnesium 1.7 mg/dL (1.8-2.4) L 02/16/18 06:30 Iron 24 ug/dL (50-175) L 02/10/18 16:00 TIBC 218 ug/dL (250-450) L 02/10/18 16:00 Transferrin % Sat 11 % (15-50) L 02/10/18 16:00 Ferritin 464 ng/mL (8-388) H 02/10/18 16:00 Total Bilirubin 0.5 mg/dL (0.2-1.0) 02/08/18 06:40 AST 12 U/L (15-37) L 02/08/18 06:40 ALT 10 U/L (12-78) L 02/08/18 06:40 Alkaline Phosphatase 79 U/L (46-116) 02/08/18 06:40 Creatine Kinase 26 U/L (26-192) 02/06/18 12:20 Troponin I < 0.02 ng/mL (0.00-0.06) 02/11/18 18:15 Total Protein 5.7 g/dL (6.4-8.2) L 02/08/18 06:40 Albumin 2.7 g/dL (3.4-5.0) L 02/08/18 06:40 Vitamin B12 973 pg/mL (193-986) 02/10/18 16:00 Folate 11.6 ng/mL (8.6-20.0) 02/10/18 16:00 TSH 0.21 uIU/mL (0.358-3.74) L 02/11/18 06:35 Free T4 1.27 ng/dL (0.76-1.46) 02/12/18 06:15 Urine Color Yellow (Yellow) 02/06/18 13:15 Urine Clarity Cloudy 02/06/18 13:15 Urine pH 5.5 (5-8) 02/06/18 13:15 Ur Specific [place] >= 1.030 (1.005-1.025) H 02/06/18 13:15 Urine Protein 30 mg/dL (Negative) H 02/06/18 13:15 Urine Ketones 15 mg/dL (Negative) H 02/06/18 13:15 Urine Blood Trace-intact (Negative) H 02/06/18 13:15 Urine Nitrite Negative (Negative) 02/06/18 13:15 Urine Bilirubin Negative (Negative) 02/06/18 13:15 Urine Urobilinogen 0.2 EU/dL (Up TO 0.2) 02/06/18 13:15 Ur Leukocyte Esterase Large (Negative) H 02/06/18 13:15 Urine RBC 0-2 (0-2) 02/06/18 13:15 Urine WBC >50 HPF (0-5) 02/06/18 13:15 Ur Epithelial Cells Few HPF (Negative) 02/06/18 13:15 Urine Crystals Negative HPF (Negative) 02/06/18 13:15 Urine Bacteria Many HPF (Negative) 02/06/18 13:15 Urine Casts Negative LPF (Negative) 02/06/18 13:15 Urine Mucus Negative (Negative) 02/06/18 13:15 Ur Culture Indicated? Yes 02/06/18 13:15 Urine Glucose Negative mg/dL (Negative) 02/06/18 13:15 Labs on day of discharge: Labs from last 24 hours 02/16/18 02/16/18 06:30 06:30 WBC 3.32 L RBC 2.70 L Hgb 8.2 L Hct 26.7 L MCV 98.9 H MCH 30.4 MCHC 30.7 L RDW 15.6 H Plt Count 313 MPV 10.1 Immature Gran % 0.6 Neutrophils % 44.3 Lymphocytes % 34.0 Monocytes % 13.9 Eosinophils % 6.3 Basophils % 0.9 Absolute Neutrophils 1.47 Absolute Lymphocytes 1.13 L Absolute Monocytes 0.46 Absolute Eosinophils 0.21 Absolute Basophils 0.03 Differential Comment Agrees w/ instrument RBC Morphology Normal Sodium 136 Potassium 4.9 Chloride 101 Carbon Dioxide 30.0 Anion Gap 5.0 BUN 16 Creatinine 0.54 L Estimated GFR/1.73 m2 >= 60.00 Glucose 102 H Calcium 8.6 Magnesium 1.7 L Preliminary micro results at discharge 02/11/18 08:58 Blood Culture - Preliminary Blood NO GROWTH 96 HOURS 02/11/18 08:49 Blood Culture - Preliminary Blood NO GROWTH 96 HOURS
--- NOTE | 2018-02-16 09:07 | PT.INDS ---
Date of service: 02/16/18 Time of Service: 09:07 PT Notes Inpatient Physical Therapy Discharge Summary Date: 02/16/18 Dates of Service: 02/14/18-02/15/18 SUBJECTIVE: NT OBJECTIVE: 02/14/18-02/15/18 BED MOBILITY/TRANSFERS: Supine-sit: maxA x1 Sit-stand: maxAx1 with STEDY lift Bed-chair: maxA with STEDY Stand-sit: maxA GAIT: maxA with STEDY standing duration 30 seconds -2min BALANCE: Static sitting normal Dynamic Sitting normal Static Standing poor Dynamic Standing poor ASSESSMENT: Pt is a 52yr old female admitted with dysphagia, s/p PEG tube placement 02/11/18 with subsequent intubation during procedure with extubation 02/12/18, in setting of Parkinson's disease, dyskinesia, dysphagia, chromosome II abnormality, urinary incontinence. osteoarthritis, carpal tunnel syndrome. Patient was seen for 3 PT visits. Progressed standing duration from 30 seconds to 2min in STEDY lift, still requiring maxA transfers due to weakness, Parkinson's. Pt is being transferred back to rehab facility for continued therapy. GOALS Goals x1 week 1. Supine-sit: minAx1 2. Sit-Supine minAx1 3. Sit-Stand: maxAx1 with FWW 4. Stand-sit minAx1 5. Bed-chair maxAx1 with FWW 6. Chair-bed maxax1 with FWW 7. Gait: MaxAx1 with FWW 10ftx2 Pt did not meet therapy goals due to weakness, continue PT at rehab DISCHARGE RECOMMENDATIONS Return to [facility] G Codes in the area mobility of walking and moving around: projected status GP [id number]_. Discharge status (if discharging) GP [id number] Blanca Akhtar PT
--- NOTE | 2018-02-16 09:11 | INDS_ITS ---
Date of service: 02/16/18 Time of Service: 09:07 PT Notes Inpatient Physical Therapy Discharge Summary Date: 02/16/18 Dates of Service: 02/14/18-02/15/18 SUBJECTIVE: NT OBJECTIVE: 02/14/18-02/15/18 BED MOBILITY/TRANSFERS: Supine-sit: maxA x1 Sit-stand: maxAx1 with STEDY lift Bed-chair: maxA with STEDY Stand-sit: maxA GAIT: maxA with STEDY standing duration 30 seconds -2min BALANCE: Static sitting normal Dynamic Sitting normal Static Standing poor Dynamic Standing poor ASSESSMENT: Pt is a 52yr old female admitted with dysphagia, s/p PEG tube placement 02/11/18 with subsequent intubation during procedure with extubation , in setting of Parkinson's disease, dyskinesia, dysphagia, chromosome II abnormality, urinary incontinence. osteoarthritis, carpal tunnel syndrome. Patient was seen for 3 PT visits. Progressed standing duration from 30 seconds to 2min in STEDY lift, still requiring maxA transfers due to weakness, Parkinson 's. Pt is being transferred back to rehab facility for continued therapy. GOALS Goals x1 week 1. Supine-sit: minAx1 2. Sit-Supine minAx1 3. Sit-Stand: maxAx1 with FWW 4. Stand-sit minAx1 5. Bed-chair maxAx1 with FWW 6. Chair-bed maxax1 with FWW 7. Gait: MaxAx1 with FWW 10ftx2 Pt did not meet therapy goals due to weakness, continue PT at rehab DISCHARGE RECOMMENDATIONS Return to [facility] G Codes in the area mobility of walking and moving around: projected status GP [id number]_. Discharge status (if discharging) GP [id number] Blanca Akhtar PT
--- NOTE | 2018-02-16 09:13 | W.SPEECHPG ---
Date of service: 02/16/18 Time of Service: 07:51 Speech Therpy Note Note: Jaylyn Sahu will be discharged to the [facility] later this morning she has been successful with oral feedings of pur?e and liquid nourishment of honey thick liquids presented by either's balloon or cup This pathologist presented the patient with honey thick liquids for her medication as well as with pur?e. She did well with both textures to swallow her medication without difficulty. It is recommended that she be reevaluated at [facility] and rehab for possible level 2 (altered mechanical soft) diet with pur?e as needed. She is discharged from dysphagia therapy at [facility]. Thank you for referring this most delightful patient to my attention. James Lozano., C. C. C. Speech pathology
--- NOTE | 2018-02-16 09:19 | PNE_ITS ---
Date of service: 02/16/18 Time of Service: 07:51 Speech Therpy Note Note: Jaylyn Sahu will be discharged to the [facility] [place] later this morning she has been successful with oral feedings of pur?e and liquid nourishment of honey thick liquids presented by either's balloon or cup This pathologist presented the patient with honey thick liquids for her medication as well as with pur?e. She did well with both textures to swallow her medication without difficulty. It is recommended that she be reevaluated at [facility] rehab for possible level 2 (altered mechanical soft) diet with pur?e as needed. She is discharged from dysphagia therapy at [facility]. Thank you for referring this most delightful patient to my attention. James Lozano., C. C. C. Speech pathology
--- NOTE | 2018-02-16 10:38 | PDOC.CMDIS ---
- If Service Date Differs Date of service: 02/16/18 Time of Service: 10:38 LACE Index Scoring Tool - Questions: Length of Stay (in days): 7 - 13 Acuity (Admit via E.D.?): No E.D. Visits: 4 - Answers: Total Score: 9 Risk of Readmission: Low Risk Care Management Discharge Reason for Hospitalization: Fever of unknown origin Discharge Plan: Jaylyn will return [facility] today via w/c van at 1100. [facility] to provide w/c for transport. Dr. Nobles has requested a Provider to Provider report, Dr. Nicole to call Dr. Nobles and discuss Jaylyn's stay at [facility].Jaylyn is on continuous tube feeds of Jevity at this time, which CM notified Tiffanie Willett, of this morning. SNF forms have been completed and placed on the front of the chart. Patient/Family Education Needs: Review DC instructions, any limitations, and discuss Ask Me Three Services Needed at Discharge: Detention Facility ([facility])
--- NOTE | 2018-02-16 14:29 | PGE_ITS ---
Assessment and Plan (1) Abnormal EKG: Current visit: Yes Status: Resolved EKG at 9:30 am on 02/11 performed by Anesthesia with NSR, diffuse ST Segment abnormalities that indicated potential acute infarct in the anteroseptal , inferior regions. Patient was immediately started on a heparin gtt, BB, ASA, and high potency statin therapy, with repeat troponins ordered. However, repeat EKG performed at 10:24 am was completely normal and without any changes from baseline or any signs of ischemia. Initial and follow-up troponins were negative. All of the above medications were discontinued. 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 Asked cardiology for input as well, with recommendations for a nuclear stress test - ordered and interpreted as negative on 02/15. EKG changes could potentially represent vasospasm, although patient was not tachycardic, hypotensive, or febrile, and her UTI was treated. She was also sedated and intubated without any hypoxia at the time. Unsure of exact etiology. (2) Respiratory distress, acute: Current visit: No Status: Acute Resolved. Likely precipitated by inadvertant intubation of the right mainstem bronchus prior to planned PEG tube placement. Currently resolved. Patient was maintained on mechanical ventilation, with PEG tube placed on 02/11. Now successfully extubated. (3) UTI (urinary tract infection): Current visit: Yes Status: Acute Treated with Ciprofloxacin X5 days. Urine Culture with Enterobacter Cloacae, sensitive to Fluoroquinolone therapy. (4) Parkinsons disease: Current visit: Yes Status: Chronic Continue home antiparkinsonian medications. (5) Dysphagia: Current visit: Yes Status: Acute Underwent successful PEG tube placement 02/11. TF's as per surgery. Also on diet of Pureed Honey Thick Liquid consistency as per speech recommendations. (6) Anemia: Current visit: Yes Status: Chronic Appears to be anemia of chronic disease, with low iron/TIBC and elevated Ferritin. B12 and FA normal. TSH mildly low but checked during acute illness - FT4 checked and normal. Stool for occult blood ordered but still pending. Current Hgb low with drop post PEG tube, but remains stable. Monitor closely. Also initiated PPI therapy. (7) DVT prophylaxis: Current visit: No Status: Chronic Patient was maintained on SC Lovenox. (8) Discharge planning issues: Current visit: Yes Status: Acute Full code status was confirmed. Patient being discharged back to [facility] today in stable and improved condition. Subjective Patient reports: shortness of breath and other (Acute respiratory failure) Interval history since last seen: 52-year-old woman with a PMHx significant for severe PD with concurrent dysphasia and prior aspiration of food, weight loss, and malnutrition, admitted to [facility] on 02/06/2018 for a planned elective PEG tube placement. Ms. So is a resident at nearby [facility] facility. She has significant dysphagia, and was admitted in September of this year following a significant aspiration event. She was admitted for percutaneous gastrostomy tube placement, but found to be febrile and with a UTI, and remains on antibiotic therapy. She was scheduled for PEG-tube placement on 02/09, but prior to the procedure in the OR, she had rapid onset acute hypoxic respiratory failure with transient cardiac arrest. This did not last longer than 1-2 minutes, and she quickly rebounded with no significant interventions. The cause of her transient respiratory distress appears to have been inadvertant intubation of the right mainstem bronchus. The patient also had fevers a few nights ago. Blood Cultures were obtained, and a bed side CXR was obtained and negative for any acute abnormalities. She has been afebrile since that time. Prior to her PEG tube placement anesthesia noted potential changes on telemetry and ordered and EKG, which showed fairly diffuse ST segment changes. A stat repeat troponin was checked and normal, and the patient subsequently ruled out with serial cardiac biomarkers. A repeat EKG was performed approximately 30-40 minutes later which was also completely normal and back to baseline. She underwent a nuclear stress yesterday as per cardiology recommendations, officially interpreted as normal (noted hypokinesis involving the inferior wall - not mentioned on prior ECHO). Ms. So was taken to the OR for a successful PEG tube placement, and has since been initiated on TF's, now at goal and without further high residuals. She was successfully extubated, and appears to be at her baseline mental status. Speech Therapy evaluated her as well, with recommendations for a pureed diet. She remains afebrile, and blood pressures have been reasonable. No other overnight events reported. She is scheduled to return to [facility] which is her permanent residence today. Exam Narrative Exam Narrative: GEN: Awake, Alert, Oriented X3. Noted tremors from PD, appear unchanged from baseline. Neck: Supple Pulm: Clear to auscultation without wheezes. Minimal bibasilar crackles on limited exam. CV: regular without murmur rub or gallop, regular rate Abdomen: +BS, soft and nontender. Vasc: Lower extremities without peripheral cyanosis or edema Const General: cooperative, no acute distress, well groomed, frail appearing and ill appearing chronically Nutritional Appearance: cachectic, malnourished and thin Orientation: alert, awake and oriented x3 HENMT Head: normal to inspection Mouth: oral mucosa abnormal other (dry) Teeth and gingiva: edentulous Neck Neck: normal visual inspection, full ROM, no lymphadenopathy, no meningeal signs , trachea midline and no JVD Thyroid: thyroid normal Lymphatic: no lymphadenopathy noted Resp Effort & Inspection: normal respiratory effort and able to speak in complete sentences Auscultation: clear to auscultation bilaterally Percussion: percussion normal Cardio Jugular venous pressure: no JVD Palpation: normal PMI Rate: regular rate Rhythm: regular rhythm Heart Sounds: S1 normal, S2 normal, normal, physiologic split S2, no gallops, no murmurs and no rubs Bruits: no abdominal aortic bruits and no carotid bruits Pulses: radial pulses present bilaterally, posterior tibial pulses present bilaterally and dorsalis pedis pulses present bilaterally GI Inspection: normal to inspection and scaphoid Palpation: soft and no hepatosplenomegaly Percussion: normal to percussion Auscultation: normal bowel sounds Skin General skin exam: no rashes or lesions noted Neuro General: alert, awake, oriented x3, moves all extremities and other (increased tremors in both hands) Cranial Nerves: PERRL, EOM intact bilaterally and no nystagmus Cognition: normal cognition Speech: speech normal and other (Dysphonia) Motor: tremor (both hands) and No asterixis Sensory Exam: no sensory deficits noted Extrem General: normal to inspection, full ROM and no clubbing, cyanosis or edema Psych Appearance: grossly normal and well kempt Mental Status: mental status grossly normal Speech and Movement: restless and slowed movement Mood: congruent mood Affect: normal affect Attitude: cooperative Thought Process: normal Thought Content: normal Objective Objective Clinical Data: Abnormal lab results 02/16/18 02/16/18 Range/Units 06:30 06:30 WBC 3.32 L (4.4-10.8) k/cumm RBC 2.70 L (4.00-5.20) m/cumm Hgb 8.2 L (12.0-15.5) g/dL Hct 26.7 L (36.0-46.0) % MCV 98.9 H (80-95) fL MCHC 30.7 L (32.0-36.0) g/dL RDW 15.6 H (11.7-14.6) % Absolute Lymphocytes 1.13 L (1.2-3.4) k/cumm Creatinine 0.54 L (0.55-1.02) mg/dL Glucose 102 H (70-100) mg/dL Magnesium 1.7 L (1.8-2.4) mg/dL Vital Signs Temperature 36.1 C L 02/16/18 08:01 Temperature Source Tympanic 02/16/18 08:01 Pulse 76 02/16/18 08:01 Pulse Rhythm Regular 02/14/18 15:50 Pulse 74 02/16/18 08:00 Respiratory Rate 17 02/16/18 08:00 Respiratory Effort 02/16/18 08:01 Respiratory Depth Normal 02/16/18 08:01 Respiratory Pattern Normal 02/16/18 08:01 Blood Pressure 108/68 02/16/18 08:00 Blood Pressure Mean 79 02/16/18 08:00 Blood Pressure Position Left Lateral 02/16/18 00:05 Pulse Oximetry 100 02/16/18 06:55 Respiratory End-tidal CO2 33 02/12/18 10:56 Oxygen Delivery Method Room Air 02/16/18 08:01 Oxygen Flow Rate 0 02/16/18 08:01 Fraction of Inspired Oxygen (FIO2) 60 02/12/18 11:26 Pain Level 0 02/16/18 13:01 Comment 02/13/18 02:38 Intake & Output 02/15/18 02/16/18 02/16/18 23:59 11:59 23:59 Intake Total 1134 / 1134 372 / 372 Output Total 260 / 260 5 / 5 Balance 874 / 874 367 / 367 Weight 51.7 kg Intake: IV 200 / 200 122 / 122 Oral 360 / 360 30 / 30 Intake, Tube Feeding Amount 574 / 574 220 / 220 Output: Urine 250 / 250 Output, Residual 10 / 10 5 / 5 Other: Comment Large urinary incontinence. Incontinent care given, charla to sacrum.. Large urinary incontinence. Incontinent care given, Charla applied. Voiding Methods Incontinent Incontinent Laboratory Results WBC 3.32 k/cumm (4.4-10.8) L 02/16/18 06:30 RBC 2.70 m/cumm (4.00-5.20) L 02/16/18 06:30 Hgb 8.2 g/dL (12.0-15.5) L 02/16/18 06:30 Hct 26.7 % (36.0-46.0) L 02/16/18 06:30 MCV 98.9 fL (80-95) H 02/16/18 06:30 MCH 30.4 pg (27.0-33.0) 02/16/18 06:30 MCHC 30.7 g/dL (32.0-36.0) L 02/16/18 06:30 RDW 15.6 % (11.7-14.6) H 02/16/18 06:30 Plt Count 313 x1000/uL (130-400) 02/16/18 06:30 MPV 10.1 fL (8.0-11.0) 02/16/18 06:30 Immature Gran % 0.6 02/16/18 06:30 Neutrophils % 44.3 02/16/18 06:30 Lymphocytes % 34.0 02/16/18 06:30 Monocytes % 13.9 02/16/18 06:30 Eosinophils % 6.3 02/16/18 06:30 Basophils % 0.9 02/16/18 06:30 Absolute Neutrophils 1.47 k/cumm (1.2-6.7) 02/16/18 06:30 Absolute Lymphocytes 1.13 k/cumm (1.2-3.4) L 02/16/18 06:30 Absolute Monocytes 0.46 k/cumm (0.11-0.7) 02/16/18 06:30 Absolute Eosinophils 0.21 k/cumm (0.0-0.7) 02/16/18 06:30 Absolute Basophils 0.03 k/cumm (0.0-0.2) 02/16/18 06:30 Differential Comment Agrees w/ instrument 02/16/18 06:30 RBC Morphology Normal 02/16/18 06:30 PT 11.4 sec (9.3-10.8) H 02/08/18 06:40 INR 1.2 (1.0-3.5) 02/08/18 06:40 APTT 29.2 sec (21.0-31.4) 02/08/18 06:40 D-Dimer 1038 ng/mlFEU (<500) H 02/09/18 14:00 Sodium 136 mmol/L (136-145) 02/16/18 06:30 Potassium 4.9 mmol/L (3.5-5.1) 02/16/18 06:30 Chloride 101 mmol/L (98-107) 02/16/18 06:30 Carbon Dioxide 30.0 mmol/L (21.0-32.0) 02/16/18 06:30 Anion Gap 5.0 mmol/L (3-11) 02/16/18 06:30 BUN 16 mg/dL (7-18) 02/16/18 06:30 Creatinine 0.54 mg/dL (0.55-1.02) L 02/16/18 06:30 Estimated GFR/1.73 m2 >= 60.00 (mL/min/1.73m2) 02/16/18 06:30 Glucose 102 mg/dL (70-100) H 02/16/18 06:30 Lactate 0.9 mmol/L (0.6-1.4) 02/09/18 14:00 Calcium 8.6 mg/dL (8.5-10.1) 02/16/18 06:30 Phosphorus 2.1 mg/dL (2.6-4.7) L 02/09/18 14:00 Magnesium 1.7 mg/dL (1.8-2.4) L 02/16/18 06:30 Iron 24 ug/dL (50-175) L 02/10/18 16:00 TIBC 218 ug/dL (250-450) L 02/10/18 16:00 Transferrin % Sat 11 % (15-50) L 02/10/18 16:00 Ferritin 464 ng/mL (8-388) H 02/10/18 16:00 Total Bilirubin 0.5 mg/dL (0.2-1.0) 02/08/18 06:40 AST 12 U/L (15-37) L 02/08/18 06:40 ALT 10 U/L (12-78) L 02/08/18 06:40 Alkaline Phosphatase 79 U/L (46-116) 02/08/18 06:40 Creatine Kinase 26 U/L (26-192) 02/06/18 12:20 Troponin I < 0.02 ng/mL (0.00-0.06) 02/11/18 18:15 Total Protein 5.7 g/dL (6.4-8.2) L 02/08/18 06:40 Albumin 2.7 g/dL (3.4-5.0) L 02/08/18 06:40 Vitamin B12 973 pg/mL (193-986) 02/10/18 16:00 Folate 11.6 ng/mL (8.6-20.0) 02/10/18 16:00 TSH 0.21 uIU/mL (0.358-3.74) L 02/11/18 06:35 Free T4 1.27 ng/dL (0.76-1.46) 02/12/18 06:15 Urine Color Yellow (Yellow) 02/06/18 13:15 Urine Clarity Cloudy 02/06/18 13:15 Urine pH 5.5 (5-8) 02/06/18 13:15 Ur Specific [place] >= 1.030 (1.005-1.025) H 02/06/18 13:15 Urine Protein 30 mg/dL (Negative) H 02/06/18 13:15 Urine Ketones 15 mg/dL (Negative) H 02/06/18 13:15 Urine Blood Trace-intact (Negative) H 02/06/18 13:15 Urine Nitrite Negative (Negative) 02/06/18 13:15 Urine Bilirubin Negative (Negative) 02/06/18 13:15 Urine Urobilinogen 0.2 EU/dL (Up TO 0.2) 02/06/18 13:15 Ur Leukocyte Esterase Large (Negative) H 02/06/18 13:15 Urine RBC 0-2 (0-2) 02/06/18 13:15 Urine WBC >50 HPF (0-5) 02/06/18 13:15 Ur Epithelial Cells Few HPF (Negative) 02/06/18 13:15 Urine Crystals Negative HPF (Negative) 02/06/18 13:15 Urine Bacteria Many HPF (Negative) 02/06/18 13:15 Urine Casts Negative LPF (Negative) 02/06/18 13:15 Urine Mucus Negative (Negative) 02/06/18 13:15 Ur Culture Indicated? Yes 02/06/18 13:15 Urine Glucose Negative mg/dL (Negative) 02/06/18 13:15
== END 2018-02-16 13:00 | disposition skilled nursing facility (03) | DRG 864 ==
LOC: ICU 13:24
PROVIDERS: Internal Medicine; Admitting Provider Surgery; PCP Nurse Practitioner Family; Visit Provider Surgery
PROC: 0DH63UZ Insertion of Feeding Device into Stomach, Percutaneous Approach (ICD-10-PCS; CPT 43246; principal; 2018-02-09 11:30)
DX: R50.9 Fever, unspecified (principal); N39.0 Urinary tract infection, site not specified; E46 Unspecified protein-calorie malnutrition; Z68.1 Body mass index [BMI] 19.9 or less, adult; T88.4XXA Failed or difficult intubation, initial encounter; B95.2 Enterococcus as the cause of diseases classified elsewhere; G20 Parkinson's disease; R13.19 Other dysphagia; I10 Essential (primary) hypertension; E78.5 Hyperlipidemia, unspecified; I27.20 Pulmonary hypertension, unspecified; Z16.23 Resistance to quinolones and fluoroquinolones; Z16.39 Resistance to other specified antimicrobial drug; D63.8 Anemia in other chronic diseases classified elsewhere; Y83.8 Other surgical procedures as the cause of abnormal reaction of the patient, or of later complication, without mention of misadventure at the time of the procedure; Y70.8 Miscellaneous anesthesiology devices associated with adverse incidents, not elsewhere classified; Y92.234 Operating room of hospital as the place of occurrence of the external cause; I08.1 Rheumatic disorders of both mitral and tricuspid valves; I25.2 Old myocardial infarction; L24.89 Irritant contact dermatitis due to other agents; L89.151 Pressure ulcer of sacral region, stage 1; R06.03 Acute respiratory distress; R94.31 Abnormal electrocardiogram [ECG] [EKG]
CPT/HCPCS: 43246; 36410; 36415; 71045; 71275; 77001; 78452; 80048; 80053; 82550; 87040; 87077; 87081; 92526; 92610; 93016; 93018; 93306; 97110; 97163; 97530; 99222; 99223; 99231; 99232; 99233; 99238; 99239; 99252; 99253; 99291; J1650; NC; 74022; 81003; 81015; 82272; 82607; 82728; 82746; 83540; 83550; 83605; 83735; 84100; 84439; 84443; 84484; 85025; 85379; 85610; 85730; 87086; 87186; 93005; 93010; 93017; 94002; 94003; 99221; J0131; J0744; J2250; J2785; J3475; J3490

== ENCOUNTER → 2018-02-09 08:27 | Outpatient (BNVA) | payer MEDICARE, MEDICAID, SELFPAY | PROVIDERS: PCP Nurse Practitioner Family; Visit Provider Internal Medicine Cardiovascular Disease | DX: R69 Illness, unspecified (principal) ==

== ENCOUNTER 2018-02-22 11:26 | Inpatient (IN) | payer MEDICARE, MEDICAID, SELFPAY ==
[2018-02-22] VITALS (32 sets, daily range): BP systolic 101–221; BP diastolic 49–156; PULSE 59–184; RESP 10–53; TEMP 36.2–36.9; O2SAT 9–100
[2018-02-22 11:50] LABS: Lactate-non-spesis 0.7 mmol/L (0.6-1.4)
[2018-02-22 11:53] LABS: Abs Immature Grans 0.03 k/cumm (0.0-0.09); Absolute Basophil Count 0.07 k/cumm (0.0-0.2); Absolute Eosinophil Count 0.13 k/cumm (0.0-0.7); Absolute Lymphocyte Count 1.94 k/cumm (1.2-3.4); Absolute Monocyte Count 0.74 k/cumm (0.11-0.7); Absolute Neutrophil Count 5.43 k/cumm (1.2-6.7); Basophils % 0.8; Eosinophils % 1.6; HCT 31.7 % (36.0-46.0); HGB 9.9 g/dL (12.0-15.5); Immature Grans % 0.4; Lymphocytes % 23.3; Mean Corp. HGB Concentration 31.2 g/dL (32.0-36.0); Mean Corpuscular Volume 99.4 fL (80-95); Monocytes % 8.9; Platelet Count 453 x1000/uL (130-400); RBC 3.19 m/cumm (4.00-5.20); RBC Distribution Width 16.3 % (11.7-14.6); White Blood Cell Count 8.34 k/cumm (4.4-10.8)
--- NOTE | 2018-02-22 11:55 | W.ED.GENAD ---
Discharge Plan Disposition Patient Disposition: [facility] INPATIENT Condition: Stable Discharge Details Chief Complaint: SOB Clinical Impression: Aspiration into airway Primary Care Provider: Barbara Almaguer ED Provider: Rosalino Kelsey Home Meds and New Rx's Prescriptions: No Action baclofen 10 MG tablet 10 mg PO HS prn Qty: 30 RF: 0 acetaminophen [Tylenol] 325 MG tablet 650 mg PO Q4H PRN PRNRF: 0 fluoxetine 20 MG capsule 20 mg PO DAILY RF: 0 carbidopa-levodopa [Rytary] 1 EACH capsule, extended release 1 ea PO TID RF: 0 propranolol 40 MG tablet 40 mg PO DAILY RF: 0 omeprazole 10 MG capsule,delayed release(DR/EC) 20 mg PO DAILY RF: 0 naproxen sodium [Aleve] 220 MG tablet 220 mg PO Q12H RF: 0 amantadine HCl 100 MG tablet 200 mg PO BID RF: 0 polyethylene glycol 3350 17 GM powder in packet 17 gm PO DAILY PRNRF: 0 ropinirole [Requip] 0.25 MG tablet 0.25 mg PO TID 7 Days Qty: 20 RF: 0 melatonin 3 MG tablet 3 mg PO HS PRNRF: 0 magnesium hydroxide [Milk of Magnesia] 30 ML suspension 30 mg PO HS PRNRF: 0 bisacodyl 10 MG suppository 1 supp MA PRN PRNRF: 0 calcium carbonate 500 MG tablet,chewable 1 tab PO .Q6H, PRN PRNRF: 0 sodium phosphates [Fleet Enema] 118 ML enema 1 btl MA PRN PRNRF: 0 docusate sodium 100 MG capsule 100 mg PO BID PRNRF: 0 ondansetron HCl [Zofran] 4 mg Tablet 4 mg PO Q6H PRN PRNRF: 0 Medical Decision Making This is a 52-year-old female with a history of Parkinson's, recurrent aspiration pneumonia who presents today for respiratory distress. She was eating breakfast this morning when she suddenly began experiencing difficulty breathing and coughing. Lung sounds are diminished. Crackles throughout. Concern for aspiration pneumonia. We will get a chest x-ray, started her on positive pressure ventilation, and assess for any significant laboratory abnormalities. We will start the patient on Unasyn for suspected aspiration pneumonia. The patient is a full code. Unfortunately she actually was supposed to go home today from rehab. EKG 11: 48 Rate is 70, QTc 397, QRS 94, severe artifact is noted secondary to the patient's diaphoresis and severe tremulousness compounded by her chronic Parkinson's disease. However based on the EKG there does not appear to be any focal ST elevations or depressions. We will attempt to get a repeat EKG later once the patient's tremulousness improves. 1:07 PM Patient's laboratory workup has returned, no significant leukocytosis, lactate is 0.7, the remainder of her labs are relatively benign. PH is 7.36 with some retention of CO2 at 55. On BiPAP the patient has improved from her initial 79% now saturating well in the mid 90s. She appears to be tolerating this well. Chest x-ray does not show any signs of severe pneumonitis at this time. However because of the patient's very clear history, crackles on exam, and initial notable acute hypoxemia I feel that aspiration pneumonitis is certainly the main component of her symptomatology. We have started her on 3 g of Unasyn. I contacted Dr. Canseco and discussed the case with him. Patient will be admitted to the floor. He states he will be putting in admitting orders. I have extensively reviewed the treatment plan with the patient. I have addressed all patient concerns at this time. I have also discussed the plan with the admitting physician and they agree with the current assessment and plan and have agreed to assume responsibility for the patient. All parties demonstrate verbal understanding and agreement with our assessment and plan at this time. HPI General Date/Time Provider Initiated Documentation: 02/22/18 11:33. HPI Narrative: This is a 52-year-old female with a past medical history of severe Parkinson's, intubation in the past, multiple episodes of respiratory distress and aspiration pneumonia, PEG tube, previous N STEMI, hypertension, high cholesterol, who presents today for evaluation of respiratory distress. She comes from her care facility for respiratory distress. They state that normally she does not utilize oxygen or have any oxygen needs, however this morning after breakfast which was pur?ed food she developed notable respiratory distress, cough, and decreasing O2 saturations. 79% was the lowest it got at the facility she required notable supplemental oxygen. Upon EMS arrival they started her on 15 L via nonrebreather, and she had some improvement into the mid to high 80s. The patient does complain of some cough, but has no other complaints at this time. She is able to respond to questions and commands. Patient has no additional complaints currently, no other modifying factors. Of note the patient had been on antibiotics previously for aspiration pneumonia but is currently not on any at this time as she made a complete recovery. Related Data Home Medications Medication Instructions Recorded Confirmed baclofen 10 mg PO HS prn #30 tab-cap 07/25/16 02/22/18 amantadine HCl 200 mg PO BID 08/15/16 02/22/18 acetaminophen [Tylenol] 650 mg PO Q4H PRN PRN tab-cap 11/15/16 02/22/18 fluoxetine 20 mg PO DAILY tab-cap 11/15/16 02/22/18 polyethylene glycol 3350 17 gm PO DAILY PRN 08/15/17 02/22/18 ropinirole [Requip] 0.25 mg PO TID 7 Days #20 tablet 08/15/17 02/22/18 carbidopa-levodopa [Rytary] 1 ea PO TID 08/30/17 02/22/18 naproxen sodium [Aleve] 220 mg PO Q12H tab-cap 12/25/17 02/22/18 omeprazole 20 mg PO DAILY tab-cap 12/25/17 02/22/18 propranolol 40 mg PO DAILY 12/25/17 02/22/18 bisacodyl 1 supp MA PRN PRN 01/04/18 02/22/18 calcium carbonate 1 tab PO .Q6H, PRN PRN 01/04/18 02/22/18 docusate sodium 100 mg PO BID PRN 01/04/18 02/22/18 magnesium hydroxide [Milk of 30 mg PO HS PRN 01/04/18 02/22/18 Magnesia] melatonin 3 mg PO HS PRN 01/04/18 02/22/18 sodium phosphates [Fleet Enema] 1 btl MA PRN PRN 01/04/18 02/22/18 ondansetron HCl [Zofran] 4 mg PO Q6H PRN PRN 02/06/18 02/22/18 Previous Rx's Medication Instructions Recorded ropinirole [Requip] 0.25 mg PO TID 7 Days #20 tablet 08/15/17 Allergies Allergy/AdvReac Type Severity Reaction Status Date / Time environmental Allergy Uncoded 02/06/18 10:04 General Stated Complaint: SOB SHAWN: 2 Review of Systems Review of Systems All systems reviewed & are unremarkable except as noted in HPI and below Exam Narrative Exam Narrative: 1.Const: Thin cachectic, in tachypnea, moderate respiratory distress, pale and diaphoretic. 2.Eyes: PERRL, no conjunctival injection, and symmetrical lids. 3.ENT: Atraumatic external nose and ears. dry MM. Neck: Symmetric, trachea midline, No thyromegaly. 4.CVS: +S1/S2, No murmurs or gallops. Peripheral pulses 2+ and equal in all extremities. Brisk capillary refill in all extremities. 5.RESP: Decreased breath sounds throughout, crackles, mild inspiratory effort. 6.GI: Soft, Nontender/Nondistended, No hepatosplenomegaly. No guarding or rebound. Patient does have a PEG tube on the left that is in place and demonstrates no abnormalities peer 7.MSK: Normocephalic/Atraumatic, Extremities w/o deformity or ttp No cyanosis or clubbing, patient's movements are at baseline and she demonstrates significant tremulousness and shaking. Some of this is common with her Parkinson's. She does demonstrate movement of all extremities however this is limited. 8.Skin: Warm, Dry. No rashes or lesions. 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 Sensation grossly intact, no focal neurologic deficits. Patient had her Parkinson's baseline. 10.Psych: (AAO) x3. Appropriate mood and affect. She is able to answer questions and respond appropriately Course Vital Signs Temperature 36.9 C 02/22/18 11:32 Pulse 67 02/22/18 11:32 Respiratory Rate 22 02/22/18 11:32 Blood Pressure 139/91 H 02/22/18 11:32 Pulse Oximetry 89 L 02/22/18 11:32 Temperature 36.9 C 02/22/18 11:32 Pulse 67 02/22/18 11:32 Respiratory Rate 22 02/22/18 11:32 Respiratory Effort 02/22/18 11:45 Blood Pressure 139/91 H 02/22/18 11:32 Pulse Oximetry 89 L 02/22/18 11:32 Oxygen Delivery Method Non-Rebreather 02/22/18 11:32 Oxygen Flow Rate 15 02/22/18 11:32 Lab/Test Results Lab/Test Results: 02/22/18 11:43 Blood Blood Culture - Pending 02/22/18 11:34 Blood Blood Culture - Pending Laboratory Tests Range/Units 02/22/18 11:43 Lactate (0.6-1.4) mmol/L 0.7
--- NOTE | 2018-02-22 11:58 | ED.GENADUL_ITS ---
Discharge Plan Disposition Patient Disposition: [facility] INPATIENT Condition: Stable Discharge Details Chief Complaint: SOB Clinical Impression: Aspiration into airway Primary Care Provider: Barbara Almaguer ED Provider: Rosalino Kelsey Home Meds and New Rx's Prescriptions: No Action baclofen 10 MG tablet 10 mg PO HS prn Qty: 30 RF: 0 acetaminophen [Tylenol] 325 MG tablet 650 mg PO Q4H PRN PRNRF: 0 fluoxetine 20 MG capsule 20 mg PO DAILY RF: 0 carbidopa-levodopa [Rytary] 1 EACH capsule, extended release 1 ea PO TID RF: 0 propranolol 40 MG tablet 40 mg PO DAILY RF: 0 omeprazole 10 MG capsule,delayed release(DR/EC) 20 mg PO DAILY RF: 0 naproxen sodium [Aleve] 220 MG tablet 220 mg PO Q12H RF: 0 amantadine HCl 100 MG tablet 200 mg PO BID RF: 0 polyethylene glycol 3350 17 GM powder in packet 17 gm PO DAILY PRNRF: 0 ropinirole [Requip] 0.25 MG tablet 0.25 mg PO TID 7 Days Qty: 20 RF: 0 melatonin 3 MG tablet 3 mg PO HS PRNRF: 0 magnesium hydroxide [Milk of Magnesia] 30 ML suspension 30 mg PO HS PRNRF: 0 bisacodyl 10 MG suppository 1 supp HI PRN PRNRF: 0 calcium carbonate 500 MG tablet,chewable 1 tab PO .Q6H, PRN PRNRF: 0 sodium phosphates [Fleet Enema] 118 ML enema 1 btl HI PRN PRNRF: 0 docusate sodium 100 MG capsule 100 mg PO BID PRNRF: 0 ondansetron HCl [Zofran] 4 mg Tablet 4 mg PO Q6H PRN PRNRF: 0 Medical Decision Making This is a 52-year-old female with a history of Parkinson's, recurrent aspiration pneumonia who presents today for respiratory distress. She was eating breakfast this morning when she suddenly began experiencing difficulty breathing and coughing. Lung sounds are diminished. Crackles throughout. Concern for aspiration pneumonia. We will get a chest x-ray, started her on positive pressure ventilation, and assess for any significant laboratory abnormalities. We will start the patient on Unasyn for suspected aspiration pneumonia. The patient is a full code. Unfortunately she actually was supposed to go home today from rehab. EKG 11: 48 Rate is 70, QTc 397, QRS 94, severe artifact is noted secondary to the patient' s diaphoresis and severe tremulousness compounded by her chronic Parkinson's disease. However based on the EKG there does not appear to be any focal ST elevations or depressions. We will attempt to get a repeat EKG later once the patient's tremulousness improves. 1:07 PM Patient's laboratory workup has returned, no significant leukocytosis, lactate is 0.7, the remainder of her labs are relatively benign. PH is 7.36 with some retention of CO2 at 55. On BiPAP the patient has improved from her initial 79% now saturating well in the mid 90s. She appears to be tolerating this well. Chest x-ray does not show any signs of severe pneumonitis at this time. However because of the patient's very clear history, crackles on exam, and initial notable acute hypoxemia I feel that aspiration pneumonitis is certainly the main component of her symptomatology. We have started her on 3 g of Unasyn. I contacted Dr. Canseco and discussed the case with him. Patient will be admitted to the floor. He states he will be putting in admitting orders. I have extensively reviewed the treatment plan with the patient. I have addressed all patient concerns at this time. I have also discussed the plan with the admitting physician and they agree with the current assessment and plan and have agreed to assume responsibility for the patient. All parties demonstrate verbal understanding and agreement with our assessment and plan at this time. HPI General Date/Time Provider Initiated Documentation: 02/22/18 11:33 . HPI Narrative: This is a 52-year-old female with a past medical history of severe Parkinson's, intubation in the past, multiple episodes of respiratory distress and aspiration pneumonia, PEG tube, previous N STEMI, hypertension, high cholesterol, who presents today for evaluation of respiratory distress. She comes from her care facility for respiratory distress. They state that normally she does not utilize oxygen or have any oxygen needs, however this morning after breakfast which was pur?ed food she developed notable respiratory distress, cough, and decreasing O2 saturations. 79% was the lowest it got at the facility she required notable supplemental oxygen. Upon EMS arrival they started her on 15 L via nonrebreather, and she had some improvement into the mid to high 80s. The patient does complain of some cough, but has no other complaints at this time. She is able to respond to questions and commands. Patient has no additional complaints currently, no other modifying factors. Of note the patient had been on antibiotics previously for aspiration pneumonia but is currently not on any at this time as she made a complete recovery. Related Data Home Medications Medication Instructions Recorded Confirmed baclofen 10 mg PO HS prn #30 tab-cap 07/25/16 02/22/18 amantadine HCl 200 mg PO BID 08/15/16 02/22/18 acetaminophen [Tylenol] 650 mg PO Q4H PRN PRN tab-cap 11/15/16 02/22/18 fluoxetine 20 mg PO DAILY tab-cap 11/15/16 02/22/18 polyethylene glycol 3350 17 gm PO DAILY PRN 08/15/17 02/22/18 ropinirole [Requip] 0.25 mg PO TID 7 Days #20 tablet 08/15/17 02/22/18 carbidopa-levodopa [Rytary] 1 ea PO TID 08/30/17 02/22/18 naproxen sodium [Aleve] 220 mg PO Q12H tab-cap 12/25/17 02/22/18 omeprazole 20 mg PO DAILY tab-cap 12/25/17 02/22/18 propranolol 40 mg PO DAILY 12/25/17 02/22/18 bisacodyl 1 supp HI PRN PRN 01/04/18 02/22/18 calcium carbonate 1 tab PO .Q6H, PRN PRN 01/04/18 02/22/18 docusate sodium 100 mg PO BID PRN 01/04/18 02/22/18 magnesium hydroxide [Milk of 30 mg PO HS PRN 01/04/18 02/22/18 Magnesia] melatonin 3 mg PO HS PRN 01/04/18 02/22/18 sodium phosphates [Fleet Enema] 1 btl HI PRN PRN 01/04/18 02/22/18 ondansetron HCl [Zofran] 4 mg PO Q6H PRN PRN 02/06/18 02/22/18 Previous Rx's Medication Instructions Recorded ropinirole [Requip] 0.25 mg PO TID 7 Days #20 tablet 08/15/17 Allergies Allergy/AdvReac Type Severity Reaction Status Date / Time environmental Allergy Uncoded 02/06/18 10:04 General Stated Complaint: SOB SHAWN: 2 Review of Systems Review of Systems All systems reviewed & are unremarkable except as noted in HPI and below Exam Narrative Exam Narrative: 1.Const: Thin cachectic, in tachypnea, moderate respiratory distress, pale and diaphoretic. 2.Eyes: PERRL, no conjunctival injection, and symmetrical lids. 3.ENT: Atraumatic external nose and ears. dry MM. Neck: Symmetric, trachea midline, No thyromegaly. 4.CVS: +S1/S2, No murmurs or gallops. Peripheral pulses 2+ and equal in all extremities. Brisk capillary refill in all extremities. 5.RESP: Decreased breath sounds throughout, crackles, mild inspiratory effort. 6.GI: Soft, Nontender/Nondistended, No hepatosplenomegaly. No guarding or rebound. Patient does have a PEG tube on the left that is in place and demonstrates no abnormalities peer 7.MSK: Normocephalic/Atraumatic, Extremities w/o deformity or ttp No cyanosis or clubbing, patient's movements are at baseline and she demonstrates significant tremulousness and shaking. Some of this is common with her Parkinson's. She does demonstrate movement of all extremities however this is limited. 8.Skin: Warm, Dry. No rashes or lesions. 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 Sensation grossly intact, no focal neurologic deficits. Patient had her Parkinson's baseline. 10.Psych: (AAO) x3. Appropriate mood and affect. She is able to answer questions and respond appropriately Course Vital Signs Temperature 36.9 C 02/22/18 11:32 Pulse 67 02/22/18 11:32 Respiratory Rate 22 02/22/18 11:32 Blood Pressure 139/91 H 02/22/18 11:32 Pulse Oximetry 89 L 02/22/18 11:32 Temperature 36.9 C 02/22/18 11:32 Pulse 67 02/22/18 11:32 Respiratory Rate 22 02/22/18 11:32 Respiratory Effort 02/22/18 11:45 Blood Pressure 139/91 H 02/22/18 11:32 Pulse Oximetry 89 L 02/22/18 11:32 Oxygen Delivery Method Non-Rebreather 02/22/18 11:32 Oxygen Flow Rate 15 02/22/18 11:32 Lab/Test Results Lab/Test Results: 02/22/18 11:43 Blood Blood Culture - Pending 02/22/18 11:34 Blood Blood Culture - Pending Laboratory Tests Range/Units 02/22/18 11:43 Lactate (0.6-1.4) mmol/L 0.7
[2018-02-22 12:05] LABS: ALT 15 U/L (12-78); AST 17 U/L (15-37); Albumin 3.5 g/dL (3.4-5.0); Alkaline Phosphatase 151 U/L (46-116); Anion Gap 6.5 mmol/L (3-11); BUN 21 mg/dL (7-18); Bilirubin, Total 0.4 mg/dL (0.2-1.0); CO2 30.5 mmol/L (21.0-32.0); CREATININE 0.67 mg/dL (0.55-1.02); Calcium 9.3 mg/dL (8.5-10.1); Chloride 102 mmol/L (98-107); Glucose 90 mg/dL (70-100); Potassium 4.7 mmol/L (3.5-5.1); Sodium 139 mmol/L (136-145); Total Protein 7.7 g/dL (6.4-8.2)
[2018-02-22 12:10] LABS: Bilirubin Negative (Negative); Blood Negative (Negative); Clarity Clear; Glucose Negative (Negative); Ketones Negative (Negative); Leukocyte Esterase Negative (Negative); Nitrite Negative (Negative); Specific Gravity 1.015 (1.005-1.025); pH 8.5 (5-8)
[2018-02-22 12:26] LABS: Troponin I < 0.02 ng/mL (0.00-0.06)
[2018-02-22 12:31] LABS: BE (Venous) 5.2 mmol/L (-3-3); HCO3 (Venous) 31 mmol/L (22-28); O2 Sat (Venous) 49 % (70-80); TCO2 (Venous) 29 mmol/L (22-29); pCO2 (Venous) 55 mm/Hg (34-47); pH (Venous) 7.36 (7.32-7.43); pO2 (Venous) 29 mm/Hg (28-44)
--- NOTE | 2018-02-22 12:34 | DI.RAD_ITS ---
SYMPTOMS/DIAGNOSIS: HYPOXIC COUGH PORTABLE AP CHEST: Comparison is 02/11/18. The heart size and pulmonary vasculature are within normal limits. The lungs are clear. No effusions or pneumothoraces are identified. Degenerative changes are seen in the spine. IMPRESSION: No acute pulmonary process.
[2018-02-22] MEDS: AMPICILLIN/SULBACTAM 3 GM in Normal Saline 100 ML IVPB (12:44)
--- NOTE | 2018-02-22 15:49 | HPE_ITS ---
Date of service: 02/22/18 Time of Service: 15:49 Assessment and Plan (1) Aspiration into airway: Start date: 02/22/18 Current visit: Yes Status: Acute Patient is being made NPO until evaluation by speech therapy. We will empirically cover her with Zosyn for aspiration pneumonia. The patient should have an x-ray repeated within the next 24-48 hours. (2) Acute respiratory failure with hypoxia: Start date: 02/22/18 Current visit: Yes Status: Acute Due to above. Patient is already improving. Continue to wean oxygen as tolerated. Swallowing evaluation is indicated. N.p.o. (3) Dysphagia: Current visit: Yes Status: Chronic Patient is status post PEG tube. We will continue tube feeding, but I will hold her p.o. diet until evaluation by speech therapy. (4) Dehydration: Current visit: Yes Status: Acute Patient will be intravenously hydrated with D5 normal saline at 100 cc/ hr. Ultimately, her free water via PEG tube will need to be increased. Will discuss with ammonia box tender. (5) Failure to thrive: Current visit: Yes Status: Chronic Continue PEG tube feeding as above. (6) Parkinsons disease: Current visit: Yes Status: Chronic Continue outpatient medications at this time, having converted all of them to per tube. (7) Abnormal EKG: Current visit: No Status: Resolved Repeating EKG. Clinical suspicion for myocardial ischemia is low. (8) Urinary incontinence: Current visit: Yes Status: Chronic Discontinue Mccall catheter placed in the ER. Patient will undergo a formal voiding trial over the next 24 hours to ensure that she does not retain urine. (9) Ambulatory dysfunction: Current visit: Yes Status: Chronic Physical and occupational therapy consulted for evaluation and treatment. History of Present Illness Chief Complaint: Witnessed aspiration event at a rehab facility Narrative: Ms So is a 52-year-old female with past medical history of Parkinson's disease, dysphagia and failure to thrive with PEG tube placement on previous recent admission, and reported prior aspiration events, who was discharged from [facility] to [facility] and rehab about a week ago after complicated admission, which included a stay in the ICU on a ventilator, who was sent back to [facility] ED today after a witnessed aspiration event which was followed by difficulty breathing/respiratory distress. On arrival of EMS, the patient was noted to be hypoxic to 79% on room air (she does not normally use oxygen); she was placed on 15 L of oxygen via nonrebreather. In the emergency room, she was placed on CPAP with significant improvement of her respiratory symptoms. She was treated empirically with Unasyn for a likely aspiration pneumonia. The patient herself denies any shortness of breath, dizziness, chest pain, nausea. She endorses coughing a lot after eating beans and roast beef earlier today at the care home. She has a hard time recalling the remainder of the events. She reports pain in her left foot. Of note, the patient is now on 2 L of oxygen by nasal cannula, comfortable in bed. Review of Systems Review of Systems All systems reviewed & are unremarkable except as noted in HPI and below ( Additionally, the patient feels cold.) Meds Home Medications Medication Instructions Recorded Confirmed Type baclofen 10 mg PO HS prn #30 tab-cap 07/25/16 02/22/18 History amantadine HCl 200 mg PO BID 08/15/16 02/22/18 History acetaminophen [Tylenol] 650 mg PO Q4H PRN PRN tab-cap 11/15/16 02/22/18 History fluoxetine 20 mg PO DAILY tab-cap 11/15/16 02/22/18 History polyethylene glycol 3350 17 gm PO DAILY PRN 08/15/17 02/22/18 History ropinirole [Requip] 0.25 mg PO TID 7 Days #20 tablet 08/15/17 02/22/18 Rx carbidopa-levodopa [Rytary] 1 ea PO TID 08/30/17 02/22/18 History naproxen sodium [Aleve] 220 mg PO Q12H tab-cap 12/25/17 02/22/18 History propranolol 40 mg PO DAILY 12/25/17 02/22/18 History bisacodyl 1 supp NC PRN PRN 01/04/18 02/22/18 History calcium carbonate 1 tab PO .Q6H, PRN PRN 01/04/18 02/22/18 History docusate sodium 100 mg PO BID PRN 01/04/18 02/22/18 History magnesium hydroxide [Milk of 30 mg PO HS PRN 01/04/18 02/22/18 History Magnesia] melatonin 3 mg PO HS PRN 01/04/18 02/22/18 History sodium phosphates [Fleet Enema] 1 btl NC PRN PRN 01/04/18 02/22/18 History ondansetron HCl [Zofran] 4 mg PO Q6H PRN PRN 02/06/18 02/22/18 History omeprazole 20 mg PO DAILY 02/22/18 02/22/18 History Allergies Allergy/AdvReac Type Severity Reaction Status Date / Time environmental Allergy Uncoded 02/06/18 10:04 Exam Narrative Exam Narrative: 02/22/18 14:40 Temperature 36.3 C L Pulse 65 Pulse [BIPAP] Respiratory Rate 20 Respiratory Rate [BIPAP] Blood Pressure 128/78 Pulse Oximetry 100 Pulse Oximetry [BIPAP] General: Tremulous frail female, speaking very softly, occasionally difficult to interpret, forgetful, diaphoretic, pale Neurological: Alert and X3, tremulous with pill rolling tremor in bilateral upper extremities, bilateral foot drop, soft-spoken, masked faces Psychiatric: Flat affect Skin: Dry, intact, pale HEENT: Atraumatic, normocephalic, extraocular movements are intact, pupils are equal and dilated bilaterally, dry mucous membranes, clear oropharynx, no submandibular or cervical lymphadenopathy, no goiter or JVD Cardiovascular: regularly regular rhythm Lungs: Clear to auscultation bilaterally without any evidence of respiratory Gastrointestinal: Abdomen soft, tenderness around PEG tube in left upper quadrant Extremities: Bilateral foot drop noted, no edema, clubbing, cyanosis; 2+ pedal pulses bilaterally Results Imaging Chest x-ray: report reviewed and image reviewed Additional studies: EKG: Difficult to interpret due to tremor. HR around 75, SR with PACs vs Afib, nonspecific ST-T changes, no acute ischemia (Being repeated) Imaging Studies: CXR: IMPRESSION: No acute pulmonary process. Labs : 02/22/18 11:43 02/22/18 11:43 Laboratory Results - last 24 hr 02/22/18 02/22/18 02/22/18 11:43 11:43 11:43 WBC 8.34 RBC 3.19 L Hgb 9.9 L Hct 31.7 L MCV 99.4 H MCH 31.0 MCHC 31.2 L RDW 16.3 H Plt Count 453 H MPV 10.0 Immature Gran % 0.4 Neutrophils % 65.0 Lymphocytes % 23.3 Monocytes % 8.9 Eosinophils % 1.6 Basophils % 0.8 Absolute Neutrophils 5.43 Absolute Lymphocytes 1.94 Absolute Monocytes 0.74 H Absolute Eosinophils 0.13 Absolute Basophils 0.07 PT 10.0 INR 1.0 VBG pH VBG pCO2 VBG pO2 VBG HCO3 VBG Total CO2 VBG O2 Saturation VBG Base Excess Sodium 139 Potassium 4.7 Chloride 102 Carbon Dioxide 30.5 Anion Gap 6.5 BUN 21 H Creatinine 0.67 Estimated GFR/1.73 m2 >= 60.00 Glucose 90 Lactate Calcium 9.3 Total Bilirubin 0.4 AST 17 ALT 15 Alkaline Phosphatase 151 H Troponin I Total Protein 7.7 Albumin 3.5 Urine Color Urine Clarity Urine pH Ur Specific Brandon Urine Protein Urine Ketones Urine Blood Urine Nitrite Urine Bilirubin Urine Urobilinogen Ur Leukocyte Esterase Urine Glucose 02/22/18 02/22/18 02/22/18 11:43 11:55 12:00 WBC RBC Hgb Hct MCV MCH MCHC RDW Plt Count MPV Immature Gran % Neutrophils % Lymphocytes % Monocytes % Eosinophils % Basophils % Absolute Neutrophils Absolute Lymphocytes Absolute Monocytes Absolute Eosinophils Absolute Basophils PT INR VBG pH VBG pCO2 VBG pO2 VBG HCO3 VBG Total CO2 VBG O2 Saturation VBG Base Excess Sodium Potassium Chloride Carbon Dioxide Anion Gap BUN Creatinine Estimated GFR/1.73 m2 Glucose Lactate 0.7 Calcium Total Bilirubin AST ALT Alkaline Phosphatase Troponin I < 0.02 Total Protein Albumin Urine Color Yellow Urine Clarity Clear Urine pH 8.5 H Ur Specific Brandon 1.015 Urine Protein Negative Urine Ketones Negative Urine Blood Negative Urine Nitrite Negative Urine Bilirubin Negative Urine Urobilinogen 1.0 H Ur Leukocyte Esterase Negative Urine Glucose Negative 02/22/18 12:24 WBC RBC Hgb Hct MCV MCH MCHC RDW Plt Count MPV Immature Gran % Neutrophils % Lymphocytes % Monocytes % Eosinophils % Basophils % Absolute Neutrophils Absolute Lymphocytes Absolute Monocytes Absolute Eosinophils Absolute Basophils PT INR VBG pH 7.36 VBG pCO2 55 H VBG pO2 29 VBG HCO3 31 H VBG Total CO2 29 VBG O2 Saturation 49 L VBG Base Excess 5.2 H Sodium Potassium Chloride Carbon Dioxide Anion Gap BUN Creatinine Estimated GFR/1.73 m2 Glucose Lactate Calcium Total Bilirubin AST ALT Alkaline Phosphatase Troponin I Total Protein Albumin Urine Color Urine Clarity Urine pH Ur Specific Brandon Urine Protein Urine Ketones Urine Blood Urine Nitrite Urine Bilirubin Urine Urobilinogen Ur Leukocyte Esterase Urine Glucose
[2018-02-22] MEDS: Enoxaparin 40 MG/0.4 ML SYR SC (18:41)
[2018-02-22] MEDS: Acetaminophen 325 MG TAB 650 MG NG (18:42)
[2018-02-22] MEDS: PIPERACILLIN/TAZO 3.375 GM in Normal Saline 50 ML IVPB ×2 (19:00→23:42)
[2018-02-22] MEDS: DEXTROSE 5%-0.9% SALINE 1,000 ML 100 ML IV (19:01)
[2018-02-22] MEDS: rOPINIRole 0.5 MG TAB 0.25 MG NG (21:21)
[2018-02-22] MEDS: Baclofen 10 MG TAB NG (21:24)
[2018-02-22] MEDS: Melatonin 3 MG TAB PO (21:51)
[2018-02-22] MEDS: Normal Saline Flush 10 ML SYR (23:43)
[2018-02-23] VITALS (9 sets, daily range): BP systolic 102–143; BP diastolic 46–74; PULSE 55–82; RESP 18–24; TEMP 36.5–38.1; O2SAT 89–98
[2018-02-23] MEDS: Baclofen 10 MG TAB NG (02:32)
[2018-02-23] MEDS: DEXTROSE 5%-0.9% SALINE 1,000 ML 100 ML IV (04:53)
[2018-02-23] MEDS: PIPERACILLIN/TAZO 3.375 GM in Normal Saline 50 ML IVPB ×4 (05:45→23:56)
[2018-02-23 07:05] LABS: Abs Immature Grans 0.02 k/cumm (0.0-0.09); Absolute Basophil Count 0.12 k/cumm (0.0-0.2); Absolute Eosinophil Count 0.06 k/cumm (0.0-0.7); Absolute Lymphocyte Count 1.24 k/cumm (1.2-3.4); Absolute Neutrophil Count 4.54 k/cumm (1.2-6.7); Basophils % 1.8; Eosinophils % 0.9; HCT 29.7 % (36.0-46.0); Immature Grans % 0.3; Lymphocytes % 18.8; Mean Corp. HGB Concentration 30.3 g/dL (32.0-36.0); Mean Corpuscular Hemoglobin 30.2 pg (27.0-33.0); Mean Corpuscular Volume 99.7 fL (80-95); Mean Platelet Volume 10.4 fL (8.0-11.0); Monocytes % 9.1; Neutrophils % 69.1; Platelet Count 398 x1000/uL (130-400); RBC 2.98 m/cumm (4.00-5.20); RBC Distribution Width 16.3 % (11.7-14.6); White Blood Cell Count 6.58 k/cumm (4.4-10.8)
[2018-02-23 07:19] LABS: Anion Gap 8.9 mmol/L (3-11); BUN 23 mg/dL (7-18); CO2 28.1 mmol/L (21.0-32.0); CREATININE 0.79 mg/dL (0.55-1.02); Chloride 110 mmol/L (98-107); Glucose 127 mg/dL (70-100); Potassium 4.7 mmol/L (3.5-5.1); Sodium 147 mmol/L (136-145)
--- NOTE | 2018-02-23 08:29 | W.SPEECHEVAL ---
Date of service: 02/23/18 Time of Service: 07:00 Speech Therapy Evaluation Note: Referring Provider: Dr. New BACKGROUND: This is a 52-year-old right-handed female who has been a resident at [facility] for the past few years. Yesterday at this facility there was a witnessed aspiration event after which the patient was transferred to the ED. It is reported that the patient had a choking event when she was eating green beans and roast beef. A chest x-ray showed no acute findings. The patient was subsequently admitted to the [facility] floor for further care. She was made NPO and a swallow consult was requested. This patient is known to me since I had originally seen her as a home health client 3 years ago. Additionally she was seen in September of this year during an admission to the ICU. At that time it was recommended that she be changed to a Pur?e diet, Honey-thick liquids, free water, and fine-crushed pills in pur?e. 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 OBJECTIVE: Nursing reports the following: Lung sounds CTA bilaterally in the presence of an antibiotic, tepm 37.8, O2 sat 93% on room air. The patient is reclined in bed and awake. She is unresponsive to my verbal greeting. She does not make direct eye contact unless requested during today's visit. She shows significant upper extremity and mandibular tremor. Her speech is much less intelligible than what was noted last time I saw her a few months ago, but it is evident that she makes multiple off-topic utterances. Oral Sensorimotor Exam The patient is totally edentulous. Intraoral areas appear dry. The patient has significant difficulty in following directions today which makes it difficult for her to participate in much of this part of the exam. However the following is noted. She shows no lingual deviation on moderately decreased excursion. Her lingual excursion is quite brief despite cueing for holding out of her tongue for a longer time. She is unable to produce a volitional cough. Volitional throat-clear is moderately to severely decreased. Estimated speech intelligibility to this mildly familiar listener in a setting of mild background noise is 25%. Vocal quality is within normal limits. Vocal intensity is mildly to moderately decreased. Regarding swallowing the following is noted: Liquids: - [place]-thick: Adequate bolus control and posterior oral transit. Delayed genie s/s aspiration/penetration. Oral clearance 100%. No oral escape. - Honey-thick: Adequate bolus control and mildly delayed posterior oral transit. No genie s/s aspiration/penetration. Oral clearance 100%. No oral escape. Foods - Puree: Adequate bolus control with brief linguopalatal bolus compression. Posterior oral transit mildly delayed. No genie s/s A/P. Oral clearance 100%. No oral escape. - Mechanically Altered: Did not test secondary to high risk of choking/aspiration/penetration. Pills: Not assessed. Patient showed no physical response to cueing for use of an effortful swallow strategy. She is also unable to use chin-tuck and head-turn strategies due to severely diminished head/neck ROM. INTERPRETATION: The patient shows a moderate to severe oropharyngeal dysphagia in a setting of severe Parkinson's disease and total edentulousness. The patient is unsafe to be on any p.o. food consistency besides pur?e. RECOMMENDATIONS: 1. Change from NPO to PO with: - Puree deit - Honey-thick liquid - Fine-crushed pills in puree 2. Nutrition/hydration/medication via PEG tube prn. 3. Aided feeding. 4. No ST indicated at this time. Thank you for referring this patient. James Hanson., CCC-MULTI CRAFT MAINTENANCE TECHNICIAN
--- NOTE | 2018-02-23 08:52 | IN_ITS ---
Date of service: 02/23/18 Time of Service: 08:20 PT Notes Inpatient Physical Therapy Evaluation Date: 02/23/18 Referring Doctor: Lauren Klein PT Orders: PT Consult: Patient from SNF; h/o Parkinson's Precautions: Fall Precautions, aspiration precautions PATIENT PROFILE/ADMITTING DIAGNOSIS: Pt is a 52yr old female admitted due to aspiration at [facility] and rehab. She is admitted on observation status. She had a recent previous admission due to dysphagia, s/p PEG tube placement with subsequent intubation during procedure with extubation 02/12/18. PMHX: Parkinson's disease, dyskinesia, dysphagia, chromosome II abnormality, urinary incontinence. osteoarthritis, carpal tunnel syndrome, depression, hypertension, hyperlipidemia, insomnia, hysterectomy, tonsillectomy, adenoidectomy Social History/Home Situation: Resident of [facility], since recent stay at [facility] and return to rehab facility, pt reports she has been primarily bed bound, the last time she walked with her 4WW was reportedly in December. Pt is dependent with ADLS Equipment owned/DME: 4WW SUBJECTIVE: Pt lying in bed. Patient has difficulty communicating, and per nursing has not received her Sinemet this morning. OBJECTIVE: General Observation: IV L UE, PEG tube/feeding tube. On room air. Patient has a marked tremor of the upper extremities, trunk and neck. She is resting with significant flexor tone of the upper extremities. Patient is diaphoretic at rest. Nursing present at initiation of session. Mental Status: Unable to determine, based on communication difficulties. Pain: Denies pain ROM: RUE AROM shoulder flexion 60, elbow -60 extension and wrist WNL, resting position pt flexing elbows and wrists LUE AROM shoulder flexion 80, with significant deviation into abduction; elbow - 60 extension and wrist WNL, resting position pt flexing elbows and wrists. RLE AROM hip flexion 90, knee WNL, ankle PROM WNL. pt maintaining bilateral plantar flexion with flexed toes in resting position, supination left ankle. Able to get to neutral DF and resting alignment with stretching. Tight achilles tendons bilaterally LLE AROM hip flexion 90, knee WNL, ankle PROM WNL. pt maintaining bilateral plantar flexion with flexed toes in resting position. Able to get to neutral DF and resting alignment with stretching. Tight achilles tendons bilaterally STRENGTH: RUE: shoulder flexion 3-/5, bicep 3/5, land degradation analyst 5/5 LUE: shoulder flexion 3-/5, bicep 3/5, land degradation analyst 5/5 RLE: hip flexion 2/5, quad 3-/5, ankle DF/PF 2/5 LLE: hip flexion 2/5, quad 3-/5, ankle DF/PF 2/5 BED MOBILITY/TRANSFERS: Supine-sit: HOB 45 degrees maxAx2 to edge of bed sit->supine: max A x 2 Sit-stand: unable Bed-chair: unable GAIT: unable BALANCE: Static sitting: Poor, with max A Dynamic Sitting: unable Static Standing unable Dynamic Standing unable SPECIAL TESTS: Mobility Limitations Standardized Measure [facility] AM -PAC ?6 clicks? Basic Mobility Inpatient Short Form: raw score: 7 standardized score: 26.42 CMS score: 92% CMS modifier: CM INFORMED CONSENT/EDUCATION: Pt instructed in purpose of PT Consult and plan of care ASSESSMENT: Pt is a 52yr old female admitted due to aspiration at [facility]. She had a recent admission approximately 2 weeks ago, due to dysphagia, s/p PEG tube placement 02/11/18 with subsequent intubation during procedure with extubation 02/12/18. Past medical history is significant for Parkinson's disease, dyskinesia, dysphagia, chromosome II abnormality, urinary incontinence. osteoarthritis, carpal tunnel syndrome. Patient presents with dramatic limitations in mobility, and related to Parkinson's disease, and unfortunately has not had her dose of Sinemet at time of PT consult. Given her dramatic reduction in mobility versus 2 weeks ago, I am hopeful that she will see significant improvements once her medication dosage is back on schedule. We will attempt PT intervention 1 hour post Sinemet dose later today, and further assess mobility at that time. She currently demonstrates the following impairment level findings: 1. UE, trunk and neck tremors 2. UE rigidity 3. weakness in upper and lower extremities 4. Decreased balance Impairments are contributing to the following functional limitations: 1. Dependent for bed mobility 2. Dependent for static sitting 3. Unable to transfer 4. Unable to ambulate 5. Fully dependent for all ADLs Pt will benefit from skilled therapy intervention to improve her ROM, flexibility, strength, transfer mobility, standing tolerance and duration. Anticipate return to [facility] when medically cleared for continued therapy. Impairments are contributing to the following functional limitations: AMPAC score CMS score: 92 % Patient is assessed as a * high [id number] complexity based on the following: History: 52-year-old female with severe limitations in mobility, related to recent aspiration with history of acute kidney injury in setting of Parkinson's disease, dyskinesia, dysphagia, chromosome II abnormality, urinary incontinence. osteoarthritis, carpal tunnel syndrome Examination: Functional limitations as above Presentation: Unstable Decision Making: AMPAC score CMS score: 92 % GOALS Goals x1 week 1. Supine-sit: mod Ax1 2. Sit-Supine modAx1 3. Sit-Stand: maxAx1 with Steady 4. Stand-sit maxAx1 5. Bed-chair maxAx1 with Steady 6. Chair-bed maxax1 with Steady PLAN OF CARE/TREATMENT PLAN: 1-2x/day, 7 days/ week x 1 week Plan of care has been reviewed with the [employer] providing the service under Physical therapy direction. Initiate physical therapy intervention for strengthening, bed mobility, transfers, gait, stairs, balance training, use of assistive device. Treatment will consist of transfer training, and upper and lower extremity strengthening, as patient is able to tolerate. Will attempt to coordinate treatment sessions with Sinemet dosing. DISCHARGE RECOMMENDATIONS Return to [facility] TREATMENT TIME/MINUTES/CODES 25min IE(high complexity), 8:20 G Codes in the area mobility of walking and moving around: current status [id number] CM projected status GP [id number] AMPAC score CMS score: 92%
--- NOTE | 2018-02-23 08:52 | EVALE_ITS ---
Date of service: 02/23/18 Time of Service: 07:00 Speech Therapy Evaluation Note: Referring Provider: Dr. New BACKGROUND: This is a 52-year-old right-handed female who has been a resident at [facility] for the past few years. Yesterday at this facility there was a witnessed aspiration event after which the patient was transferred to the ED. It is reported that the patient had a choking event when she was eating green beans and roast beef. A chest x-ray showed no acute findings. The patient was subsequently admitted to the [facility] floor for further care. She was made NPO and a swallow consult was requested. This patient is known to me since I had originally seen her as a home health client 3 years ago. Additionally she was seen in September of this year during an admission to the ICU. At that time it was recommended that she be changed to a Pur?e diet, Honey-thick liquids, free water, and fine-crushed pills in pur?e. 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 OBJECTIVE: Nursing reports the following: Lung sounds CTA bilaterally in the presence of an antibiotic, tepm 37.8, O2 sat 93% on room air. The patient is reclined in bed and awake. She is unresponsive to my verbal greeting. She does not make direct eye contact unless requested during today's visit. She shows significant upper extremity and mandibular tremor. Her speech is much less intelligible than what was noted last time I saw her a few months ago, but it is evident that she makes multiple off-topic utterances. Oral Sensorimotor Exam The patient is totally edentulous. Intraoral areas appear dry. The patient has significant difficulty in following directions today which makes it difficult for her to participate in much of this part of the exam. However the following is noted. She shows no lingual deviation on moderately decreased excursion. Her lingual excursion is quite brief despite cueing for holding out of her tongue for a longer time. She is unable to produce a volitional cough. Volitional throat-clear is moderately to severely decreased. Estimated speech intelligibility to this mildly familiar listener in a setting of mild background noise is 25%. Vocal quality is within normal limits. Vocal intensity is mildly to moderately decreased. Regarding swallowing the following is noted: Liquids: - [place]-thick: Adequate bolus control and posterior oral transit. Delayed genie s/s aspiration/penetration. Oral clearance 100%. No oral escape. - Honey-thick: Adequate bolus control and mildly delayed posterior oral transit. No genie s/s aspiration/penetration. Oral clearance 100%. No oral escape. Foods - Puree: Adequate bolus control with brief linguopalatal bolus compression. Posterior oral transit mildly delayed. No genie s/s A/P. Oral clearance 100%. No oral escape. - Mechanically Altered: Did not test secondary to high risk of choking/ aspiration/penetration. Pills: Not assessed. Patient showed no physical response to cueing for use of an effortful swallow strategy. She is also unable to use chin-tuck and head-turn strategies due to severely diminished head/neck ROM. INTERPRETATION: The patient shows a moderate to severe oropharyngeal dysphagia in a setting of severe Parkinson's disease and total edentulousness. The patient is unsafe to be on any p.o. food consistency besides pur?e. RECOMMENDATIONS: 1. Change from NPO to PO with: - Puree deit - Honey-thick liquid - Fine-crushed pills in puree 2. Nutrition/hydration/medication via PEG tube prn. 3. Aided feeding. 4. No ST indicated at this time. Thank you for referring this patient. James Hanson., CCC-BLEACHER [employer]P
[2018-02-23] MEDS: Propranolol 20 MG TAB 40 MG NG (09:37)
[2018-02-23] MEDS: rOPINIRole 0.5 MG TAB 0.25 MG NG ×3 (09:39→20:27)
[2018-02-23] MEDS: FLUoxetine 20 MG CAP NG (09:42)
--- NOTE | 2018-02-23 10:49 | PHARADMIT ---
Addendum entered by Valente Lovett III 02/25/18 14:49: Pharmacy Note Subjective MD noted that patient is doing well, in morning meeting. Objective VS-OK K+3.5 H&H-8.1/26.1 Plts-249 Assessment MD wants Zosyn to continue.... Plan No new Hospitalist note yet, but patient is awaiting placement at [facility] ([facility]) Original Note: Addendum entered by Valente Lovett III 02/24/18 14:05: Pharmacy Note Subjective If afebrile patient is ready for discharge back to [facility] Objective VS-OK sat-95% on room air, Lytes,SCr-OK H&H-7.7/25.7 Plts-275 INR-1.8 Assessment Zosyn continues for now. Plan MD considering discharge later today or tomorrow, pending [facility] re-acceptance Original Note: Admission Pharmacy Clinical Review ASPIRATION ( has PEG Tube) Code Status Full Code Current Weight Wgt- 51.7 kg Renally Cleared and Narrow Therapeutic Index Meds CrCl~ 65.61 mL/min Meds-OK QTc Value / Action Taken NA BP Control, Fever BP- 134/72 Tmax- 37.8C Electrolytes reviewed Na- 147 K+4.7 Mag-2.0 DVT Prophylaxis Lovenox 40mg Opiate Usage / Scheduled Bowel Regimen Ordered No Yes Plt/SCr for Heparin / Enoxaparin Plts-398 SCr-0.79 INR for Warfarin inr-1.0 H/H stable, WBC/Bands H&H- 9.0/29.7 WBC-6.58 Antibiotic appropriateness Zosyn Cultures and Sensitivities MRSA-pending, Blood-Pending Surgical ABX d/c within 24 hr NA DM control / Insulin Dosing BG- 127 Heart Failure (Check EF%) (MARJORIE's, B-Block, Diuretics) Inderal, IV to PO Switch No Home Meds Reviewed Yes Home Meds Not Ordered Ordered Comments Meds thru PEG Tube, PatOWN Rytary caps can be opened Awaiting Speech consult
--- NOTE | 2018-02-23 11:09 | PDOC.CMIN ---
- If Service Date Differs Date of service: 02/23/18 Time of Service: 11:09 Care Management Initial Assess REASON FOR HOSPITALIZATION:: Aspiration PAST MEDICAL HISTORY/PAST SURGICAL HISTORY:: Ambulatory dysfunction, Urinary incontinence, Recurrent aspiration events, Failure to thrive, PEG, Hyperlipidemia Type III, Essential hypertension, Anemia, Dysphagia, Parkinsons disease PREVIOUS FUNCTIONAL STATUS/SOCIAL/FAMILY SUPPORTS:: Jaylyn is a resident at [facility]. At [facility] Jaylyn is alert and oriented at baseline. Per [facility] Jaylyn is a breanne lift, and w/c bound at this time. CURRENT FUNCTIONAL STATUS:: Lying in bed this morning, Jaylyn is a patient on the Medical/Surgical floor at this time. ADVANCE DIRECTIVES:: COLST on file Has patient been provided with information about the portal?: No Did the patient sign up for the portal?: No CODE STATUS:: Full Code INSURANCE COVERAGE / FINANCIAL ISSUES:: Medicare, medicaid CURRENT HOME/COMMUNITY SERVICES/EQUIPMENT:: Currently Jaylyn receivs all services and equipment needs through [facility] PRIMARY CARE PHYSICIAN:: Barbara Almaguer POTENTIAL DISCHARGE NEEDS:: return to [facility] ? via w/c van PATIENT/FAMILY EDUCATION NEEDS:: Review DC instructions, any limitations, and ongoing DC planning discussion. review Ask Me Three ANTICIPATED BARRIERS TO DISCHARGE:: None identified at this time TRANSPORTATION:: return to [facility] ? via w/c van PLAN:: Jaylyn to return to [facility] once medically cleared She will transport via [facility] w/c van. Readmission - Within the Past 30 Days Yes or No: Y - Date of First Admission Date of 1st Admission: 02/06/18 - Date of this Admission Date of Admission: 02/22/18 This admission was: Through ED - Office Visit Since 1st Admission Have you seen your PCP in the office since discharge?: No - Speicalist Appointments Have you seen any other specialist since your 1st Admission?: No - I. Interview patient and/or Family Difficulty reaching your doctor or getting an office appt?: No Have you had trouble purchasing/ or taking medication?: No How do you take your medications and set up your pills?: Set up at [facility] and given to her by nurse Have you had trouble with getting meals at home?: No Did you feel ready for discharge when you left the last time: Yes Were services received that you thought were set up on disch: Yes What services were received?: [facility]& - If the patient had a VNA ordered Did the patient have a VNA order?: No - If the patient came from Ext. Facility Call the Facility to discuss the patient's admission: MEAGHAN spoke with Magaly [facility], whom states that Jaylyn did not choke on food this admission as she is on a pureed diet. Magaly states that Jaylyn is a breanne lift/ w/c bound at [facility] - ED visits How many ED visits in the past 12 months: 5 - Assessment for Readmission Summary of readmission circumstances, based upon interviews: Jaylyn is readmitted due to aspiration. Upon speaking with [facility] she did not choke on her meal as she is on a pureed diet. Jaylyn is a [facility] resident at [facility] was also NOT scheduled to be discharged to a home setting yesterday.
--- NOTE | 2018-02-23 11:18 | INITIAL_ITS ---
- If Service Date Differs Date of service: 02/23/18 Time of Service: 11:09 Care Management Initial Assess REASON FOR HOSPITALIZATION:: Aspiration PAST MEDICAL HISTORY/PAST SURGICAL HISTORY:: Ambulatory dysfunction, Urinary incontinence, Recurrent aspiration events, Failure to thrive, PEG, Hyperlipidemia Type III, Essential hypertension, Anemia, Dysphagia, Parkinsons disease PREVIOUS FUNCTIONAL STATUS/SOCIAL/FAMILY SUPPORTS:: Jaylyn is a resident at [facility]. At [facility] Jaylyn is alert and oriented at baseline. Per [facility] Jaylyn is a breanne lift, and w/c bound at this time. CURRENT FUNCTIONAL STATUS:: Lying in bed this morning, Jaylyn is a patient on the Medical/Surgical floor at this time. ADVANCE DIRECTIVES:: COLST on file Has patient been provided with information about the portal?: No Did the patient sign up for the portal?: No CODE STATUS:: Full Code INSURANCE COVERAGE / FINANCIAL ISSUES:: Medicare, medicaid CURRENT HOME/COMMUNITY SERVICES/EQUIPMENT:: Currently Jaylyn receivs all services and equipment needs through [facility] PRIMARY CARE PHYSICIAN:: Barbara Almaguer POTENTIAL DISCHARGE NEEDS:: return to [facility] ? via w/c van PATIENT/FAMILY EDUCATION NEEDS:: Review DC instructions, any limitations, and ongoing DC planning discussion. review Ask Me Three ANTICIPATED BARRIERS TO DISCHARGE:: None identified at this time TRANSPORTATION:: return to [facility] ? via w/c van PLAN:: Jaylyn to return to [facility] once medically cleared She will transport via [facility] w/c van. Readmission - Within the Past 30 Days Yes or No: Y - Date of First Admission Date of 1st Admission: 02/06/18 - Date of this Admission Date of Admission: 02/22/18 This admission was: Through ED - Office Visit Since 1st Admission Have you seen your PCP in the office since discharge?: No - Speicalist Appointments Have you seen any other specialist since your 1st Admission?: No - I. Interview patient and/or Family Difficulty reaching your doctor or getting an office appt?: No Have you had trouble purchasing/ or taking medication?: No How do you take your medications and set up your pills?: Set up at [facility] and given to her by nurse Have you had trouble with getting meals at home?: No Did you feel ready for discharge when you left the last time: Yes Were services received that you thought were set up on disch: Yes What services were received?: [facility]& - If the patient had a VNA ordered Did the patient have a VNA order?: No - If the patient came from Ext. Facility Call the Facility to discuss the patient's admission: MEAGHAN spoke with Magaly [facility], whom states that Jaylyn did not choke on food this admission as she is on a pureed diet. Magaly states that Jaylyn is a breanne lift/ w/c bound at [facility] - ED visits How many ED visits in the past 12 months: 5 - Assessment for Readmission Summary of readmission circumstances, based upon interviews: Jaylyn is readmitted due to aspiration. Upon speaking with [facility] she did not choke on her meal as she is on a pureed diet. Jaylyn is a [facility] resident at [facility] was also NOT scheduled to be discharged to a home setting yesterday.
--- NOTE | 2018-02-23 13:03 | DI.RAD_ITS ---
SYMPTOM/DIAGNOSIS: F/U ASPIRATION EVENT PORTABLE AP CHEST: Comparison is made with 02/22/18. Heart size and pulmonary vasculature are within normal limits. The lungs remain clear. No effusions or pneumothoraces are identified. The bones appear intact. IMPRESSION: No acute pulmonary process.
--- NOTE | 2018-02-23 13:08 | PGE_ITS ---
Assessment and Plan (1) Aspiration into airway: Current visit: Yes Status: Acute With fever noted this morning, aspiration pneumonia or pneumonitis is now likely. Repeating chest x-ray today. Continue empiric zosyn. Await blood culture results. Continue n.p.o. status. I have reached out to speech therapy with [facility] to discuss whether or not the patient would benefit from video fluoroscopy. Continue tube feeding. (2) Acute respiratory failure with hypoxia: Current visit: Yes Status: Resolved Tolerating room air. Continue treating likely underlying aspiration pneumonia. Continue to monitor oxygen saturations. (3) Dysphagia: Current visit: Yes Status: Chronic I have reviewed the speech therapist recommendations. Reaching out to her to discuss family's feelings about patient having a p.o. diet and the possibility of videofluoroscopy. (4) Dehydration: Current visit: Yes Status: Acute Continue IV fluids (changing to half-normal saline). Will discuss with char conveyor tender as to TF/free water recommendations. (5) Failure to thrive: Current visit: Yes Status: Chronic Continue PEG tube feeding (6) Parkinsons disease: Current visit: Yes Status: Chronic Continue outpatient therapy (7) Abnormal EKG: Current visit: No Status: Resolved Repeat EKG reviewed. NSR w/ PAC's more likely. No further w/u or monitoring indicated. (8) Urinary incontinence: Current visit: Yes Status: Chronic Voiding trial x 24 hours (9) Ambulatory dysfunction: Current visit: Yes Status: Chronic Continue PT/OT. Subjective Interval history since last seen: Ms So has been more confused today than she had been previously. This morning, she had a temperature of 37.8 registered. The patient does not clearly answer all of my questions, but I am able to interpret that she does not have any pain at this time, and that she does not feel short of breath. She no longer supplemental requires oxygen. Mccall catheter was pulled this morning. She was evaluated by speech therapy, and it was felt that she could resume her outpatient diet. However, her family expresses concerns about this, stating that this is the third time that the patient aspirates on this diet. They think that she should never have anything by mouth again. Exam Narrative Exam Narrative: 02/22/18 14:40 Temperature 36.3 C L Pulse 65 Pulse [BIPAP] Respiratory Rate 20 Respiratory Rate [BIPAP] Blood Pressure 128/78 Pulse Oximetry 100 Pulse Oximetry [BIPAP] General: Tremulous frail female, speaking very softly, occasionally difficult to interpret, forgetful, diaphoretic, pale Neurological: Alert and X3, tremulous with pill rolling tremor in bilateral upper extremities, bilateral foot drop, soft-spoken, masked faces Psychiatric: Flat affect Skin: Dry, intact, pale HEENT: Atraumatic, normocephalic, extraocular movements are intact, pupils are equal and dilated bilaterally, dry mucous membranes, clear oropharynx, no submandibular or cervical lymphadenopathy, no goiter or JVD Cardiovascular: regularly regular rhythm Lungs: Clear to auscultation bilaterally without any evidence of respiratory Gastrointestinal: Abdomen soft, tenderness around PEG tube in left upper quadrant Extremities: Bilateral foot drop noted, no edema, clubbing, cyanosis; 2+ pedal pulses bilaterally Const Other: In bed, diaphoretic, pale. Tremulous, more confused, mumbling -I am able to understand very few words from what Ms So is trying to communicate. HENMT Other: Dry mucous membranes. Eyes EOM: EOM intact bilaterally Neck Neck: normal visual inspection Thyroid: thyroid normal Other: No JVD Resp Effort & Inspection: normal respiratory effort Auscultation: clear to auscultation bilaterally Cardio Rhythm: regular rhythm Heart Sounds: S1 normal, S2 normal and other (Soft systolic murmur) GI Other: Abdomen soft, nontender, nondistended; PEG tube in place. Neuro Other: Tremulous, rigid, confused. It is difficult to interpret her orientation as she is mumbling and speaking very softly. Extrem Other: No edema, clubbing, cyanosis of bilateral lower extremities. Bilateral foot drop. 2+ pedal pulses bilaterally Psych Other: Anxious Objective Objective Clinical Data: Abnormal lab results 02/22/18 02/22/18 02/23/18 Range/Units 11:43 11:43 06:45 RBC 3.19 L (4.00-5.20) m/cumm Hgb 9.9 L (12.0-15.5) g/dL Hct 31.7 L (36.0-46.0) % MCV 99.4 H (80-95) fL MCHC 31.2 L (32.0-36.0) g/dL RDW 16.3 H (11.7-14.6) % Plt Count 453 H (130-400) x1000/uL Absolute Monocytes 0.74 H (0.11-0.7) k/cumm Sodium 147 H (136-145) mmol/L Chloride 110 H (98-107) mmol/L BUN 21 H 23 H (7-18) mg/dL Glucose 127 H (70-100) mg/dL Alkaline Phosphatase 151 H (46-116) U/L 02/23/18 Range/Units 06:45 RBC 2.98 L (4.00-5.20) m/cumm Hgb 9.0 L (12.0-15.5) g/dL Hct 29.7 L (36.0-46.0) % MCV 99.7 H (80-95) fL MCHC 30.3 L (32.0-36.0) g/dL RDW 16.3 H (11.7-14.6) % Plt Count (130-400) x1000/uL Absolute Monocytes (0.11-0.7) k/cumm Sodium (136-145) mmol/L Chloride (98-107) mmol/L BUN (7-18) mg/dL Glucose (70-100) mg/dL Alkaline Phosphatase (46-116) U/L Vital Signs Temperature 37.8 C H 02/23/18 07:30 Temperature Source Tympanic 02/23/18 07:30 Pulse 73 02/23/18 07:30 Pulse Rhythm Regular 02/23/18 08:25 Pulse 70 02/22/18 13:40 Respiratory Rate 24 02/23/18 07:30 Respiratory Effort Non-Labored 02/23/18 08:25 Respiratory Depth Normal 02/23/18 08:25 Respiratory Pattern Normal 02/23/18 08:25 Blood Pressure 134/72 02/23/18 07:30 Blood Pressure Mean 101 02/22/18 13:31 Pulse Oximetry 91 L 02/23/18 09:02 Oxygen Delivery Method Room Air 02/23/18 09:02 Oxygen Flow Rate 0 02/23/18 09:02 Fraction of Inspired Oxygen (FIO2) 35 02/22/18 12:14 Comment 02/22/18 19:16 Intake & Output 02/22/18 02/23/18 02/23/18 23:59 11:59 23:59 Intake Total 150 / 150 1036.667 / 1036.667 Output Total 300 / 300 600 / 600 Balance -150 / -150 436.667 / 436.667 Weight 60.6 kg 51.7 kg Intake: IV 150 / 150 1036.667 / 1036.667 Output: Urine 300 / 300 600 / 600 Other: Urine Color Straw Dark Jeannie Urine Appearance Clear Clear Laboratory Results WBC 6.58 k/cumm (4.4-10.8) 02/23/18 06:45 RBC 2.98 m/cumm (4.00-5.20) L 02/23/18 06:45 Hgb 9.0 g/dL (12.0-15.5) L 02/23/18 06:45 Hct 29.7 % (36.0-46.0) L 02/23/18 06:45 MCV 99.7 fL (80-95) H 02/23/18 06:45 MCH 30.2 pg (27.0-33.0) 02/23/18 06:45 MCHC 30.3 g/dL (32.0-36.0) L 02/23/18 06:45 RDW 16.3 % (11.7-14.6) H 02/23/18 06:45 Plt Count 398 x1000/uL (130-400) 02/23/18 06:45 MPV 10.4 fL (8.0-11.0) 02/23/18 06:45 Immature Gran % 0.3 02/23/18 06:45 Neutrophils % 69.1 02/23/18 06:45 Lymphocytes % 18.8 02/23/18 06:45 Monocytes % 9.1 02/23/18 06:45 Eosinophils % 0.9 02/23/18 06:45 Basophils % 1.8 02/23/18 06:45 Absolute Neutrophils 4.54 k/cumm (1.2-6.7) 02/23/18 06:45 Absolute Lymphocytes 1.24 k/cumm (1.2-3.4) 02/23/18 06:45 Absolute Monocytes 0.60 k/cumm (0.11-0.7) 02/23/18 06:45 Absolute Eosinophils 0.06 k/cumm (0.0-0.7) 02/23/18 06:45 Absolute Basophils 0.12 k/cumm (0.0-0.2) 02/23/18 06:45 PT 10.0 sec (9.3-10.8) 02/22/18 11:43 INR 1.0 (1.0-3.5) 02/22/18 11:43 VBG pH 7.36 (7.32-7.43) 02/22/18 12:24 VBG pCO2 55 mm/Hg (34-47) H 02/22/18 12:24 VBG pO2 29 mm/Hg (28-44) 02/22/18 12:24 VBG HCO3 31 mmol/L (22-28) H 02/22/18 12:24 VBG Total CO2 29 mmol/L (22-29) 02/22/18 12:24 VBG O2 Saturation 49 % (70-80) L 02/22/18 12:24 VBG Base Excess 5.2 mmol/L (-3-3) H 02/22/18 12:24 Sodium 147 mmol/L (136-145) H 02/23/18 06:45 Potassium 4.7 mmol/L (3.5-5.1) 02/23/18 06:45 Chloride 110 mmol/L (98-107) H 02/23/18 06:45 Carbon Dioxide 28.1 mmol/L (21.0-32.0) 02/23/18 06:45 Anion Gap 8.9 mmol/L (3-11) 02/23/18 06:45 BUN 23 mg/dL (7-18) H 02/23/18 06:45 Creatinine 0.79 mg/dL (0.55-1.02) 02/23/18 06:45 Estimated GFR/1.73 m2 >= 60.00 (mL/min/1.73m2) 02/23/18 06:45 Glucose 127 mg/dL (70-100) H 02/23/18 06:45 Lactate 0.7 mmol/L (0.6-1.4) 02/22/18 11:43 Calcium 9.0 mg/dL (8.5-10.1) 02/23/18 06:45 Magnesium 2.0 mg/dL (1.8-2.4) 02/23/18 06:45 Total Bilirubin 0.4 mg/dL (0.2-1.0) 02/22/18 11:43 AST 17 U/L (15-37) 02/22/18 11:43 ALT 15 U/L (12-78) 02/22/18 11:43 Alkaline Phosphatase 151 U/L (46-116) H 02/22/18 11:43 Troponin I < 0.02 ng/mL (0.00-0.06) 02/22/18 12:00 Total Protein 7.7 g/dL (6.4-8.2) 02/22/18 11:43 Albumin 3.5 g/dL (3.4-5.0) 02/22/18 11:43 Urine Color Yellow (Yellow) 02/22/18 11:55 Urine Clarity Clear 02/22/18 11:55 Urine pH 8.5 (5-8) H 02/22/18 11:55 Ur Specific [place] 1.015 (1.005-1.025) 02/22/18 11:55 Urine Protein Negative mg/dL (Negative) 02/22/18 11:55 Urine Ketones Negative mg/dL (Negative) 02/22/18 11:55 Urine Blood Negative (Negative) 02/22/18 11:55 Urine Nitrite Negative (Negative) 02/22/18 11:55 Urine Bilirubin Negative (Negative) 02/22/18 11:55 Urine Urobilinogen 1.0 EU/dL (Up TO 0.2) H 02/22/18 11:55 Ur Leukocyte Esterase Negative (Negative) 02/22/18 11:55 Urine Glucose Negative mg/dL (Negative) 02/22/18 11:55 Repeat chest x-ray pending
[2018-02-23 13:43] LABS: Creatine Kinase 30 U/L (26-192)
--- NOTE | 2018-02-23 14:03 | SATEXT_ITS ---
Assessment: Ms. So has been NPO and continues on PEG tube feedings of Jevity 1.2 tricia @ 55 ml/hr x 24 daily with 200 ml of free water every 4 hours. Her weight has been stable. Her BMI is 19 kg/m2 which is WNL. Her feeding provides 30 kcal/kg which meets 100% of her caloric needs. The feeding provides approximately 1050 ml of free water plus the additional 1200 ml/day of free water that she gets is likely meeting her hydration needs. Speech consult suggests that Ms. So is safe to take puree foods with honey thick liquids by mouth. Family reports they would like to keep her NPO. Nutritional Diagnosis: Inadequate intake (inability) of oral foods and fluids related to dysphagia. Intervention: Current tube feeding regimen is adequate at this time to provide 100% of her nutritional needs. Would continue to provide 100% of nutritional needs via PEG and if she and/or family decide to take food by mouth it will simply be supplemental. Monitoring and Evaluation: 1. Will continue to monitor her progress and decisions on feeding. 2. Will evaluate nutrition care plan on going and adjust as needed. Thank you for the consult.
[2018-02-23] MEDS: Normal Saline Flush 10 ML SYR IVP ×2 (14:04→23:59)
[2018-02-23] MEDS: Pantoprazole 40 MG VIAL IVP (14:04)
--- NOTE | 2018-02-23 14:07 | OT.INNT ---
Date of service: 02/23/18 Time of Service: 14:07 Occupational Therapy Notes 02/23/18 OT went to perform OT consult, RN states that pt was just getting Sinemet at this time and to check back later. Sarah Oliveira OTR/L
[2018-02-23] MEDS: SODIUM CHLORIDE 0.45% 1,000 ML 100 ML IV (14:13)
[2018-02-23] MEDS: Acetaminophen 325 MG TAB 650 MG NG (14:15)
--- NOTE | 2018-02-23 14:31 | OT.INNT ---
Date of service: 02/23/18 Time of Service: 14:31 Occupational Therapy Notes 02/23/18 OT checked in with Jaylyn regarding OT consult. RN was administering medication to pt. Pt was difficult to understand verbally but when OT asked about consult she shut her eyes and verbalized no. OT will check in with pt Monday.
--- NOTE | 2018-02-23 14:57 | NS.NUTBLAN_ITS ---
Reviewed tube feeding recommendations with Dr. Klein. Given that it is likely the tube feeding will be the sole source of nutrition and that Ms. So is on the low end of the normal range for BMI and she needs more volume, tube feeding is being increased to 65 ml/hr x 24 hr/day. She is 51.7 kg. Goal: Jevity 1.2 tricia @ 65 ml/hr per day to provide 1872 kcal (36 kca/kg/day), 86 grams of protein (1.6g/kg/day) and 28 grams of fiber per day which is within the recommended guidelines. The tube feeding provides 1240 ml of free water plus she will get 1200 ml of free water for a total of 2440 ml of free water which is 47 ml/kg/day. The feeding regimen above theoretically is anabolic and should also keep her well hydrated. Will monitor weight and tolerance to increase in rate. Will evaluate nutrition care plan ongoing and adjust as needed. Thank you for the consult.
--- NOTE | 2018-02-23 14:57 | NT_ITS ---
Date of service: 02/23/18 Time of Service: 14:55 PT Notes 02/23/18 Held afternoon PT session, as patient continues to demonstrate marked tremors. Patient was able to express that her mouth was very dry and that she was unwilling to participate in PT this afternoon. Will attempt to resume PT services tomorrow morning, if appropriate. Brit Jennings, INVENTORY ASSOCIATE AND DRIVER
[2018-02-23] MEDS: Enoxaparin 40 MG/0.4 ML SYR SC (16:32)
[2018-02-23] MEDS: Melatonin 3 MG TAB PO (21:05)
[2018-02-24] MEDS: SODIUM CHLORIDE 0.45% 1,000 ML 100 ML IV (00:48)
[2018-02-24 03:37] VITALS: BP 121/59; PULSE 58; RESP 20; TEMP 36.8; O2SAT 95
[2018-02-24] MEDS: PIPERACILLIN/TAZO 3.375 GM in Normal Saline 50 ML IVPB ×3 (05:27→18:41)
[2018-02-24 07:20] VITALS: O2SAT 98
[2018-02-24 07:33] VITALS: BP 117/58; PULSE 60; RESP 20; TEMP 37.1; O2SAT 98
[2018-02-24 07:53] LABS: Abs Immature Grans 0.01 k/cumm (0.0-0.09); Absolute Basophil Count 0.03 k/cumm (0.0-0.2); Absolute Eosinophil Count 0.01 k/cumm (0.0-0.7); Absolute Lymphocyte Count 0.68 k/cumm (1.2-3.4); Absolute Monocyte Count 0.44 k/cumm (0.11-0.7); Absolute Neutrophil Count 4.56 k/cumm (1.2-6.7); Basophils % 0.5; Eosinophils % 0.2; HCT 25.7 % (36.0-46.0); HGB 7.7 g/dL (12.0-15.5); Immature Grans % 0.2; Lymphocytes % 11.9; Mean Corpuscular Hemoglobin 30.2 pg (27.0-33.0); Mean Corpuscular Volume 100.8 fL (80-95); Mean Platelet Volume 10.2 fL (8.0-11.0); Monocytes % 7.7; Neutrophils % 79.5; Platelet Count 275 x1000/uL (130-400); RBC 2.55 m/cumm (4.00-5.20); RBC Distribution Width 16.3 % (11.7-14.6); White Blood Cell Count 5.73 k/cumm (4.4-10.8)
[2018-02-24 08:04] LABS: Anion Gap 7.2 mmol/L (3-11); BUN 26 mg/dL (7-18); CO2 27.8 mmol/L (21.0-32.0); CREATININE 0.74 mg/dL (0.55-1.02); Calcium 8.3 mg/dL (8.5-10.1); Chloride 106 mmol/L (98-107); Glucose 141 mg/dL (70-100); Magnesium 1.8 mg/dL (1.8-2.4); Potassium 4.1 mmol/L (3.5-5.1); Sodium 141 mmol/L (136-145)
[2018-02-24] MEDS: Pantoprazole 40 MG VIAL IVP (09:00)
[2018-02-24] MEDS: Normal Saline Flush 10 ML SYR IVP (09:01)
[2018-02-24] MEDS: rOPINIRole 0.5 MG TAB 0.25 MG NG ×3 (09:02→20:13)
[2018-02-24] MEDS: Propranolol 20 MG TAB 40 MG NG (09:05)
[2018-02-24] MEDS: FLUoxetine 20 MG CAP NG (09:06)
--- NOTE | 2018-02-24 11:18 | PT.INTREAT ---
Date of service: 02/24/18 Time of Service: 11:18 PT Notes PT Inpatient Treatment Note Date: 02/24/18 OBJECTIVE: Therapeutic procedures ([id number][]). [X] See flow sheet: Pt completed supine to sit with max assist x2, sit to stand with jory lift with static standing x2 for approx 2 min, and UE and LE ther ex as per flow sheet. P did receive some gentle stretching to her UE on the R. Total Treatment Time: 9:30- 10:05 (35) JUAN RAMON LAGUERRE
--- NOTE | 2018-02-24 11:24 | PTTR_ITS ---
Date of service: 02/24/18 Time of Service: 11:18 PT Notes PT Inpatient Treatment Note Date: 02/24/18 OBJECTIVE: Therapeutic procedures ([id number][]). [X] See flow sheet: Pt completed supine to sit with max assist x2, sit to stand with jory lift with static standing x2 for approx 2 min, and UE and LE ther ex as per flow sheet. P did receive some gentle stretching to her UE on the R. Total Treatment Time: 9:30- 10:05 (35) JUAN RAMON LAGUERRE
[2018-02-24 12:41] VITALS: BP 125/54; PULSE 60; RESP 20; TEMP 37.1; O2SAT 92
--- NOTE | 2018-02-24 15:47 | PDOC.CMPRO ---
Care Management Progress Note S/O Jaylyn is now NPO and asked for a mouth swab as I entered the room. Tolerating her Tube feedings. Difficult to understand her speech but her facial expressions were friendly. A 52 y.o. female L[facility] resident re-admitted to acute status for aspiration. She has also been in the Emergency Department 5 times this year. P: Jaylyn will return to the [facility] once she has been medically cleared for the change in level of care. [facility] transport by wheel chair van. Facility cannot accept her back until Monday at the earliest due to staffing challenges.
[2018-02-24 15:58] VITALS: BP 126/57; PULSE 91; RESP 20; TEMP 37.7; O2SAT 94
--- NOTE | 2018-02-24 15:58 | CMPROGNOTE_ITS ---
Care Management Progress Note S/O Jaylyn is now NPO and asked for a mouth swab as I entered the room. Tolerating her Tube feedings. Difficult to understand her speech but her facial expressions were friendly. A 52 y.o. female LTC resident re-admitted to acute status for aspiration. She has also been in the Emergency Department 5 times this year. P: Jaylyn will return to the [facility] once she has been medically cleared for the change in level of care. [facility] transport by wheel chair van. Facility cannot accept her back until Monday at the earliest due to staffing challenges.
[2018-02-24] MEDS: Enoxaparin 40 MG/0.4 ML SYR SC (16:35)
--- NOTE | 2018-02-24 18:09 | W.PM.PROGNOT ---
Assessment and Plan (1) Aspiration into airway: Current visit: Yes Status: Acute Clinically significantly improved. Continue Zosyn. N.p.o. with tube feeding. (2) Acute respiratory failure with hypoxia: Current visit: Yes Status: Resolved Resolved (3) Dysphagia: Current visit: Yes Status: Chronic Video fluoroscopy cannot be performed at our facility. The patient is being made n.p.o. with tube feeding only. As an outpatient, the family can talk to the speech therapist at the nursing facility in regards to possibly doing a modified barium swallow at a facility where there is a swallowing chair. (4) Dehydration: Current visit: Yes Status: Acute Discontinue IV fluid. (5) Failure to thrive: Current visit: Yes Status: Chronic Continue PEG tube feeding (6) Parkinsons disease: Current visit: Yes Status: Chronic Continue outpatient therapy (7) Abnormal EKG: Current visit: No Status: Resolved Repeat EKG reviewed. NSR w/ PAC's more likely. No further w/u or monitoring indicated. (8) Urinary incontinence: Current visit: Yes Status: Chronic Chronic. Monitor for skin breakdown. (9) Ambulatory dysfunction: Current visit: Yes Status: Chronic Continue PT/OT. (10) Anemia: Current visit: Yes Status: Chronic Ensure that the patient does not have a GI bleeding component. Checking Hemoccult. Subjective Interval history since last seen: Per nursing, the patient is doing much better today. She states she feels better. She denies any dizziness, chest pain, shortness of breath, nausea, vomiting, pain of any kind. She is thirsty. Exam Narrative Exam Narrative: General: Much less tremulous frail female, looks improved Neurological: Alert and X3, less tremulous with pill rolling tremor in bilateral upper extremities, bilateral foot drop, soft-spoken, masked faces Psychiatric: Affect is somewhat brighter Skin: Dry, intact, pale HEENT: Atraumatic, normocephalic, extraocular movements are intact, pupils are equal and dilated bilaterally, dry mucous membranes, clear oropharynx, no submandibular or cervical lymphadenopathy, no goiter or JVD Cardiovascular: regularly regular rhythm Lungs: Clear to auscultation bilaterally Gastrointestinal: Abdomen soft, tenderness around PEG tube in left upper quadrant Extremities: Bilateral foot drop, no edema, clubbing, cyanosis; 2+ pedal pulses bilaterally Eyes EOM: EOM intact bilaterally Neck Neck: normal visual inspection Thyroid: thyroid normal Resp Effort & Inspection: normal respiratory effort Auscultation: clear to auscultation bilaterally Cardio Rhythm: regular rhythm Heart Sounds: S1 normal, S2 normal and other (Soft systolic murmur) Objective Objective Clinical Data: Abnormal lab results 02/24/18 02/24/18 Range/Units 07:25 07:25 RBC 2.55 L (4.00-5.20) m/cumm Hgb 7.7 L (12.0-15.5) g/dL Hct 25.7 L (36.0-46.0) % MCV 100.8 H (80-95) fL MCHC 30.0 L (32.0-36.0) g/dL RDW 16.3 H (11.7-14.6) % Absolute Lymphocytes 0.68 L (1.2-3.4) k/cumm BUN 26 H (7-18) mg/dL Glucose 141 H (70-100) mg/dL Calcium 8.3 L (8.5-10.1) mg/dL Vital Signs Temperature 37.7 C H 02/24/18 15:58 Temperature Source Tympanic 02/24/18 15:58 Pulse 91 H 02/24/18 15:58 Pulse Rhythm Regular 02/24/18 07:30 Pulse 70 02/22/18 13:40 Respiratory Rate 20 02/24/18 15:58 Respiratory Effort Non-Labored 02/24/18 07:30 Respiratory Depth Normal 02/24/18 07:30 Respiratory Pattern Normal 02/24/18 07:30 Blood Pressure 126/57 L 02/24/18 15:58 Blood Pressure Mean 101 02/22/18 13:31 Pulse Oximetry 94 L 02/24/18 15:58 Oxygen Delivery Method Room Air 02/24/18 15:58 Oxygen Flow Rate 0 02/24/18 15:58 Fraction of Inspired Oxygen (FIO2) 35 02/22/18 12:14 Pain Level 0 02/24/18 15:58 Comment 02/24/18 03:37 Intake & Output 02/23/18 02/24/18 02/24/18 23:59 11:59 23:59 Intake Total 1198 / 1198 1100 / 1100 975 / 975 Output Total 125 / 125 30 / 30 Balance 1073 / 1073 1100 / 1100 945 / 945 Weight 51.7 kg Intake: IV 130 / 130 1100 / 1100 Intake, Tube Feeding Amount 1068 / 1068 975 / 975 Output: Output, Residual 125 / 125 30 / 30 Other: Urine Color Yellow Urine Appearance Clear Urine Odor Normal Comment Inc x 1 large amount pt voided in bedpan and was incontinent in brief Stool Occult Blood Negative Stool Size Large Stool Characteristics Soft Brown Voiding Methods Diaper Diaper Bedpan Incontinent Incontinent Diaper Incontinent Laboratory Results WBC 5.73 k/cumm (4.4-10.8) 02/24/18 07:25 RBC 2.55 m/cumm (4.00-5.20) L 02/24/18 07:25 Hgb 7.7 g/dL (12.0-15.5) L 02/24/18 07:25 Hct 25.7 % (36.0-46.0) L 02/24/18 07:25 MCV 100.8 fL (80-95) H 02/24/18 07:25 MCH 30.2 pg (27.0-33.0) 02/24/18 07:25 MCHC 30.0 g/dL (32.0-36.0) L 02/24/18 07:25 RDW 16.3 % (11.7-14.6) H 02/24/18 07:25 Plt Count 275 x1000/uL (130-400) D 02/24/18 07:25 MPV 10.2 fL (8.0-11.0) 02/24/18 07:25 Immature Gran % 0.2 02/24/18 07:25 Neutrophils % 79.5 02/24/18 07:25 Lymphocytes % 11.9 02/24/18 07:25 Monocytes % 7.7 02/24/18 07:25 Eosinophils % 0.2 02/24/18 07:25 Basophils % 0.5 02/24/18 07:25 Absolute Neutrophils 4.56 k/cumm (1.2-6.7) 02/24/18 07:25 Absolute Lymphocytes 0.68 k/cumm (1.2-3.4) L 02/24/18 07:25 Absolute Monocytes 0.44 k/cumm (0.11-0.7) 02/24/18 07:25 Absolute Eosinophils 0.01 k/cumm (0.0-0.7) 02/24/18 07:25 Absolute Basophils 0.03 k/cumm (0.0-0.2) 02/24/18 07:25 PT 10.0 sec (9.3-10.8) 02/22/18 11:43 INR 1.0 (1.0-3.5) 02/22/18 11:43 VBG pH 7.36 (7.32-7.43) 02/22/18 12:24 VBG pCO2 55 mm/Hg (34-47) H 02/22/18 12:24 VBG pO2 29 mm/Hg (28-44) 02/22/18 12:24 VBG HCO3 31 mmol/L (22-28) H 02/22/18 12:24 VBG Total CO2 29 mmol/L (22-29) 02/22/18 12:24 VBG O2 Saturation 49 % (70-80) L 02/22/18 12:24 VBG Base Excess 5.2 mmol/L (-3-3) H 02/22/18 12:24 Sodium 141 mmol/L (136-145) 02/24/18 07:25 Potassium 4.1 mmol/L (3.5-5.1) 02/24/18 07:25 Chloride 106 mmol/L (98-107) 02/24/18 07:25 Carbon Dioxide 27.8 mmol/L (21.0-32.0) 02/24/18 07:25 Anion Gap 7.2 mmol/L (3-11) 02/24/18 07:25 BUN 26 mg/dL (7-18) H 02/24/18 07:25 Creatinine 0.74 mg/dL (0.55-1.02) 02/24/18 07:25 Estimated GFR/1.73 m2 >= 60.00 (mL/min/1.73m2) 02/24/18 07:25 Glucose 141 mg/dL (70-100) H 02/24/18 07:25 Lactate 0.7 mmol/L (0.6-1.4) 02/22/18 11:43 Calcium 8.3 mg/dL (8.5-10.1) L 02/24/18 07:25 Magnesium 1.8 mg/dL (1.8-2.4) 02/24/18 07:25 Total Bilirubin 0.4 mg/dL (0.2-1.0) 02/22/18 11:43 AST 17 U/L (15-37) 02/22/18 11:43 ALT 15 U/L (12-78) 02/22/18 11:43 Alkaline Phosphatase 151 U/L (46-116) H 02/22/18 11:43 Creatine Kinase 30 U/L (26-192) 02/23/18 06:25 Troponin I < 0.02 ng/mL (0.00-0.06) 02/22/18 12:00 Total Protein 7.7 g/dL (6.4-8.2) 02/22/18 11:43 Albumin 3.5 g/dL (3.4-5.0) 02/22/18 11:43 Urine Color Yellow (Yellow) 02/22/18 11:55 Urine Clarity Clear 02/22/18 11:55 Urine pH 8.5 (5-8) H 02/22/18 11:55 Ur Specific [place] 1.015 (1.005-1.025) 02/22/18 11:55 Urine Protein Negative mg/dL (Negative) 02/22/18 11:55 Urine Ketones Negative mg/dL (Negative) 02/22/18 11:55 Urine Blood Negative (Negative) 02/22/18 11:55 Urine Nitrite Negative (Negative) 02/22/18 11:55 Urine Bilirubin Negative (Negative) 02/22/18 11:55 Urine Urobilinogen 1.0 EU/dL (Up TO 0.2) H 02/22/18 11:55 Ur Leukocyte Esterase Negative (Negative) 02/22/18 11:55 Urine Glucose Negative mg/dL (Negative) 02/22/18 11:55
[2018-02-24] MEDS: Melatonin 3 MG TAB PO (20:13)
[2018-02-24 20:30] VITALS: BP 120/56; PULSE 61; RESP 18; TEMP 36.5; O2SAT 96
[2018-02-25] VITALS (8 sets, daily range): BP systolic 111–147; BP diastolic 58–80; PULSE 60–76; RESP 16–20; TEMP 36.1–37; O2SAT 95–99
[2018-02-25] MEDS: PIPERACILLIN/TAZO 3.375 GM in Normal Saline 50 ML IVPB ×5 (00:29→23:30)
[2018-02-25] MEDS: Normal Saline Flush 10 ML SYR IVP ×3 (01:13→09:33)
[2018-02-25 07:40] LABS: Abs Immature Grans 0.01 k/cumm (0.0-0.09); Absolute Basophil Count 0.04 k/cumm (0.0-0.2); Absolute Eosinophil Count 0.07 k/cumm (0.0-0.7); Absolute Lymphocyte Count 1.51 k/cumm (1.2-3.4); Absolute Monocyte Count 0.43 k/cumm (0.11-0.7); Absolute Neutrophil Count 3.18 k/cumm (1.2-6.7); Basophils % 0.8; Eosinophils % 1.3; HCT 26.1 % (36.0-46.0); HGB 8.1 g/dL (12.0-15.5); Immature Grans % 0.2; Lymphocytes % 28.8; Mean Corpuscular Hemoglobin 30.8 pg (27.0-33.0); Mean Corpuscular Volume 99.2 fL (80-95); Mean Platelet Volume 10.7 fL (8.0-11.0); Monocytes % 8.2; Neutrophils % 60.7; Platelet Count 249 x1000/uL (130-400); RBC 2.63 m/cumm (4.00-5.20); RBC Distribution Width 15.5 % (11.7-14.6); White Blood Cell Count 5.24 k/cumm (4.4-10.8)
[2018-02-25 07:52] LABS: Anion Gap 5.3 mmol/L (3-11); BUN 21 mg/dL (7-18); CO2 28.7 mmol/L (21.0-32.0); CREATININE 0.64 mg/dL (0.55-1.02); Calcium 8.2 mg/dL (8.5-10.1); Chloride 102 mmol/L (98-107); Glucose 113 mg/dL (70-100); Potassium 3.5 mmol/L (3.5-5.1); Sodium 136 mmol/L (136-145)
[2018-02-25] MEDS: Pantoprazole 40 MG VIAL IVP (09:33)
[2018-02-25] MEDS: Propranolol 20 MG TAB 40 MG NG (09:34)
[2018-02-25] MEDS: rOPINIRole 0.5 MG TAB 0.25 MG NG ×3 (09:35→19:36)
[2018-02-25] MEDS: FLUoxetine 20 MG CAP NG (09:36)
--- NOTE | 2018-02-25 12:17 | PT.INTREAT ---
Date of service: 02/25/18 Time of Service: 12:17 PT Notes Inpatient Physical Therapy Treatment Note Date: 02/25/18 PRECAUTIONS:[] SUBJECTIVE: [] OBJECTIVE: [] PAIN: [] BED MOBILITY/TRANSFERS Rolling L/R: [] Supine-sit: modx2 Sit-supine: modx2 Sit-stand: Whitney lift Stand-sit: Whitney lift GAIT Assistive Device: Whitney lift Weight bearing: Full Assist: Whitney lift Distance: Static stand for approx 4 min THEREX: Pt completed UE and LE strengthening as per flow sheet with some assist with the UE to allow more ROM throughout her ex. ASSESSMENT: Pt tolerated today's session fairly well. She is motivated to complete PT but still requires a fairl amount of assist during her session. PLAN: Cont as per PT POC. TREATMENT CODE/TIME: -11:10 (10) 11:40-11:55 (15) Total 35 TA TP
--- NOTE | 2018-02-25 15:36 | PDOC.CMPRO ---
Care Management Progress Note S/O Lying in bed watching TV. Alert and very talkative today. It is a bit difficult to understand her speech but she is very capable of carrying on a conversation. Hopes she will be returning to [facility] and that things will settle down. A: 52 y.o. female admitted for aspiration P: Jaylyn will return to [facility] tomorrow. Transport by Wheelchair van.
[2018-02-25] MEDS: Enoxaparin 40 MG/0.4 ML SYR SC (15:46)
--- NOTE | 2018-02-25 18:12 | PGE_ITS ---
Assessment and Plan (1) Aspiration into airway: Current visit: Yes Status: Acute Resolving - finish antibiotics tomorrow. N.p.o. with tube feeding. (2) Acute respiratory failure with hypoxia: Current visit: Yes Status: Resolved Resolved (3) Dysphagia: Current visit: Yes Status: Chronic Video fluoroscopy as outpatient at a facility where there is a swallowing chair. Meanwhile NPO with Tube feeding via PEG. (4) Dehydration: Current visit: Yes Status: Resolved Resolved (5) Failure to thrive: Current visit: Yes Status: Chronic Continue PEG tube feeding (6) Parkinsons disease: Current visit: Yes Status: Chronic Continue outpatient therapy (7) Abnormal EKG: Current visit: No Status: Resolved Repeat EKG reviewed. NSR w/ PAC's more likely. No further w/u or monitoring indicated. (8) Urinary incontinence: Current visit: Yes Status: Chronic Chronic. Monitor for skin breakdown. (9) Ambulatory dysfunction: Current visit: Yes Status: Chronic Continue PT/OT. (10) Anemia: Current visit: Yes Status: Chronic H/H actually improved. No evidence of GI bleeding. Subjective Interval history since last seen: The patient's last fever (37.7) was yesterday at 4 pm. She states she feels a lot better. Denies any dizziness, chest pain, shortness of breath, complains of feeling thirsty. She denies any nausea/ vomiting. Exam Narrative Exam Narrative: General: Barely tremulous today frail female, looks improved, in good spirits Neurological: Alert and X3, less tremulous with pill rolling tremor in bilateral upper extremities, bilateral foot drop, soft-spoken Psychiatric: Affect brighter Skin: Dry, intact, pale HEENT: Atraumatic, normocephalic, extraocular movements are intact, pupils are equal and dilated bilaterally, moist mucous membranes, clear oropharynx, no submandibular or cervical lymphadenopathy, no goiter or JVD Cardiovascular: regularly regular rhythm Lungs: Clear to auscultation bilaterally Gastrointestinal: Abdomen soft, tenderness around PEG tube in left upper quadrant Extremities: Bilateral foot drop, no edema, clubbing, cyanosis; 2+ pedal pulses bilaterally Objective Objective Clinical Data: Abnormal lab results 02/25/18 02/25/18 Range/Units 07:15 07:15 RBC 2.63 L (4.00-5.20) m/cumm Hgb 8.1 L (12.0-15.5) g/dL Hct 26.1 L (36.0-46.0) % MCV 99.2 H (80-95) fL MCHC 31.0 L (32.0-36.0) g/dL RDW 15.5 H (11.7-14.6) % BUN 21 H (7-18) mg/dL Glucose 113 H (70-100) mg/dL Calcium 8.2 L (8.5-10.1) mg/dL Vital Signs Temperature 37 C 02/25/18 16:01 Temperature Source Tympanic 02/25/18 16:01 Pulse 60 02/25/18 16:01 Pulse Rhythm Regular 02/24/18 20:30 Pulse 70 02/22/18 13:40 Respiratory Rate 20 02/25/18 16:01 Respiratory Effort Non-Labored 02/24/18 20:30 Respiratory Depth Normal 02/24/18 20:30 Respiratory Pattern Normal 02/24/18 20:30 Blood Pressure 132/58 L 02/25/18 16:01 Blood Pressure Mean 101 02/22/18 13:31 Pulse Oximetry 99 02/25/18 16:01 Oxygen Delivery Method Room Air 02/25/18 16:01 Oxygen Flow Rate 0 02/25/18 16:01 Fraction of Inspired Oxygen (FIO2) 35 02/22/18 12:14 Pain Level 0 02/25/18 16:01 Comment 02/24/18 03:37 Intake & Output 02/24/18 02/25/18 02/25/18 23:59 11:59 23:59 Intake Total 2074 160 / 160 Output Total 105 / 105 Balance 1969 / 1969 160 / 160 Weight 52.7 kg Intake: IV 1100 / 1100 160 / 160 Intake, Tube Feeding Amount 975 / 975 Output: Output, Residual 105 / 105 Other: Urine Color Yellow Urine Appearance Clear Urine Odor Normal Comment pt voided in bedpan and was incontinent in brief pt dry at this time. Stool Occult Blood Negative Stool Size Large Moderate Stool Characteristics Soft Soft Brown Brown Voiding Methods Bedpan Incontinent Diaper Incontinent Laboratory Results WBC 5.24 k/cumm (4.4-10.8) 02/25/18 07:15 RBC 2.63 m/cumm (4.00-5.20) L 02/25/18 07:15 Hgb 8.1 g/dL (12.0-15.5) L 02/25/18 07:15 Hct 26.1 % (36.0-46.0) L 02/25/18 07:15 MCV 99.2 fL (80-95) H 02/25/18 07:15 MCH 30.8 pg (27.0-33.0) 02/25/18 07:15 MCHC 31.0 g/dL (32.0-36.0) L 02/25/18 07:15 RDW 15.5 % (11.7-14.6) H 02/25/18 07:15 Plt Count 249 x1000/uL (130-400) 02/25/18 07:15 MPV 10.7 fL (8.0-11.0) 02/25/18 07:15 Immature Gran % 0.2 02/25/18 07:15 Neutrophils % 60.7 02/25/18 07:15 Lymphocytes % 28.8 02/25/18 07:15 Monocytes % 8.2 02/25/18 07:15 Eosinophils % 1.3 02/25/18 07:15 Basophils % 0.8 02/25/18 07:15 Absolute Neutrophils 3.18 k/cumm (1.2-6.7) 02/25/18 07:15 Absolute Lymphocytes 1.51 k/cumm (1.2-3.4) 02/25/18 07:15 Absolute Monocytes 0.43 k/cumm (0.11-0.7) 02/25/18 07:15 Absolute Eosinophils 0.07 k/cumm (0.0-0.7) 02/25/18 07:15 Absolute Basophils 0.04 k/cumm (0.0-0.2) 02/25/18 07:15 PT 10.0 sec (9.3-10.8) 02/22/18 11:43 INR 1.0 (1.0-3.5) 02/22/18 11:43 VBG pH 7.36 (7.32-7.43) 02/22/18 12:24 VBG pCO2 55 mm/Hg (34-47) H 02/22/18 12:24 VBG pO2 29 mm/Hg (28-44) 02/22/18 12:24 VBG HCO3 31 mmol/L (22-28) H 02/22/18 12:24 VBG Total CO2 29 mmol/L (22-29) 02/22/18 12:24 VBG O2 Saturation 49 % (70-80) L 02/22/18 12:24 VBG Base Excess 5.2 mmol/L (-3-3) H 02/22/18 12:24 Sodium 136 mmol/L (136-145) 02/25/18 07:15 Potassium 3.5 mmol/L (3.5-5.1) 02/25/18 07:15 Chloride 102 mmol/L (98-107) 02/25/18 07:15 Carbon Dioxide 28.7 mmol/L (21.0-32.0) 02/25/18 07:15 Anion Gap 5.3 mmol/L (3-11) 02/25/18 07:15 BUN 21 mg/dL (7-18) H 02/25/18 07:15 Creatinine 0.64 mg/dL (0.55-1.02) 02/25/18 07:15 Estimated GFR/1.73 m2 >= 60.00 (mL/min/1.73m2) 02/25/18 07:15 Glucose 113 mg/dL (70-100) H 02/25/18 07:15 Lactate 0.7 mmol/L (0.6-1.4) 02/22/18 11:43 Calcium 8.2 mg/dL (8.5-10.1) L 02/25/18 07:15 Magnesium 1.8 mg/dL (1.8-2.4) 02/24/18 07:25 Total Bilirubin 0.4 mg/dL (0.2-1.0) 02/22/18 11:43 AST 17 U/L (15-37) 02/22/18 11:43 ALT 15 U/L (12-78) 02/22/18 11:43 Alkaline Phosphatase 151 U/L (46-116) H 02/22/18 11:43 Creatine Kinase 30 U/L (26-192) 02/23/18 06:25 Troponin I < 0.02 ng/mL (0.00-0.06) 02/22/18 12:00 Total Protein 7.7 g/dL (6.4-8.2) 02/22/18 11:43 Albumin 3.5 g/dL (3.4-5.0) 02/22/18 11:43 Urine Color Yellow (Yellow) 02/22/18 11:55 Urine Clarity Clear 02/22/18 11:55 Urine pH 8.5 (5-8) H 02/22/18 11:55 Ur Specific [place] 1.015 (1.005-1.025) 02/22/18 11:55 Urine Protein Negative mg/dL (Negative) 02/22/18 11:55 Urine Ketones Negative mg/dL (Negative) 02/22/18 11:55 Urine Blood Negative (Negative) 02/22/18 11:55 Urine Nitrite Negative (Negative) 02/22/18 11:55 Urine Bilirubin Negative (Negative) 02/22/18 11:55 Urine Urobilinogen 1.0 EU/dL (Up TO 0.2) H 02/22/18 11:55 Ur Leukocyte Esterase Negative (Negative) 02/22/18 11:55 Urine Glucose Negative mg/dL (Negative) 02/22/18 11:55
[2018-02-25] MEDS: Melatonin 3 MG TAB PO (22:23)
[2018-02-26 04:38] VITALS: BP 122/75; PULSE 76; RESP 16; TEMP 37.2; O2SAT 93
[2018-02-26] MEDS: PIPERACILLIN/TAZO 3.375 GM in Normal Saline 50 ML IVPB (05:51)
[2018-02-26 07:20] VITALS: BP 126/72; PULSE 70; RESP 18; TEMP 36.4; O2SAT 93
[2018-02-26] MEDS: Pantoprazole 40 MG VIAL IVP (07:44)
[2018-02-26] MEDS: Normal Saline Flush 10 ML SYR IVP (07:44)
[2018-02-26] MEDS: rOPINIRole 0.5 MG TAB 0.25 MG NG (07:45)
[2018-02-26] MEDS: Propranolol 20 MG TAB 40 MG NG (07:46)
[2018-02-26] MEDS: FLUoxetine 20 MG CAP NG (07:47)
--- NOTE | 2018-02-26 08:47 | OT.INNT ---
Date of service: 02/26/18 Time of Service: 08:47 Occupational Therapy Notes 02/26/18 OT consult received, pt to be discharged to [facility] to [facility]. Recommend OT services at [facility]. Sarah Oliveira OTR/L
--- NOTE | 2018-02-26 08:57 | PT.DS ---
Date of service: 02/26/18 Time of Service: 08:57 PT Notes Inpatient Physical Therapy Discharge Summary Date: 02/26/18 Dates of Service: 02/23/18-02/24/18 SUBJECTIVE: NT OBJECTIVE: 02/23/18-02/24/18 BED MOBILITY/TRANSFERS: Supine-sit: maxAx2 Sit-supine: maxAx2 Sit-stand: max A bibi lift Stand-sit: maxA GAIT: unable BALANCE: Static sitting: max A Dynamic Sitting: unable Static Standing unable Dynamic Standing unable ASSESSMENT: Pt is a 52yr old female admitted due to aspiration at nursing home facility. Pt was seen for 2 PT Visits, pt at [facility] during admission due to Parkinson's and medication management. Pt is being [facility], recommend continued PT/OT GOALS Goals x1 week 1. Supine-sit: mod Ax1 2. Sit-Supine modAx1 3. Sit-Stand: maxAx1 with Steady 4. Stand-sit maxAx1 5. Bed-chair maxAx1 with Steady 6. Chair-bed maxax1 with Steady Pt did not meet therapy goals, recommend continued PT DISCHARGE RECOMMENDATIONS Return to [facility] G Codes in the area mobility of walking and moving around: projected status GP [id number]_, discharge status GP [id number] Blanca Akhtar PT
--- NOTE | 2018-02-26 09:03 | PTDS_ITS ---
Date of service: 02/26/18 Time of Service: 08:57 PT Notes Inpatient Physical Therapy Discharge Summary Date: 02/26/18 Dates of Service: 02/23/18-02/24/18 SUBJECTIVE: NT OBJECTIVE: 02/23/18-02/24/18 BED MOBILITY/TRANSFERS: Supine-sit: maxAx2 Sit-supine: maxAx2 Sit-stand: max A bibi lift Stand-sit: maxA GAIT: unable BALANCE: Static sitting: max A Dynamic Sitting: unable Static Standing unable Dynamic Standing unable ASSESSMENT: Pt is a 52yr old female admitted due to aspiration at care home facility. Pt was seen for 2 PT Visits, pt at [facility] during admission due to Parkinson's and medication management. [facility], recommend continued PT/OT GOALS Goals x1 week 1. Supine-sit: mod Ax1 2. Sit-Supine modAx1 3. Sit-Stand: maxAx1 with Steady 4. Stand-sit maxAx1 5. Bed-chair maxAx1 with Steady 6. Chair-bed maxax1 with Steady Pt did not meet therapy goals, recommend continued PT DISCHARGE RECOMMENDATIONS [facility] to [facility] G Codes in the area mobility of walking and moving around: projected status GP [id number]_, discharge status GP [id number] Blanca Akhtar PT
--- NOTE | 2018-02-26 09:56 | W.PM.DS.N ---
Date of service: 02/26/18 Time of Service: 09:57 DS: Diagnosis Discharge Diagnosis (1) Aspiration into airway: Status: Acute (2) Acute respiratory failure with hypoxia: Status: Resolved (3) Dysphagia: Status: Chronic (4) Dehydration: Status: Resolved (5) Failure to thrive: Status: Chronic (6) Parkinsons disease: Status: Chronic (7) Abnormal EKG: Status: Resolved (8) Urinary incontinence: Status: Chronic (9) Ambulatory dysfunction: Status: Chronic (10) Anemia: Status: Chronic Discharge Plan Disposition Patient Disposition: SNF (LEVEL 1) [facility] Condition: Stable Discharge Details Reason For Visit: ASPIRATION Admit Date/Time: 02/22/18 15:32 Admit Provider: Yonis Canseco Attending Provider: Yonis Canseco Primary Care Provider: Barbara Almaguer [facility] Course Hospital Course: Jaylyn is a pleasant 52-year-old woman with advanced Parkinson's, dysphasia, failure to thrive with recent PEG tube placement and initiation of tube feeds who presented to the emergency department at [facility] on 02/22/2018 from [facility] due to a witnessed episode of aspiration resulting in dyspnea. During her last hospitalization she did require ventilation for a similar episode. On arrival EMS noted that patient was hypoxic with an SPO2 of 79% on room air. She was placed on a nonrebreather and transported to the emergency department where she was placed on CPAP. She had significant and immediate improvement of her respiratory status. Was treated empirically with Unasyn for aspiration pneumonia, however was transitioned to Zosyn upon admission. She has remained n.p.o. and had no further breathing difficulties. Speech therapy did consult and recommended continuing tube feeding. There was discussion regarding a modified barium swallow, however this cannot be performed here at [facility]. The plan is to continue with tube feeding as her primary source of nutrition and to keep her n.p.o. Home Meds and New Rx's Prescriptions: Continue baclofen 10 MG tablet 10 mg PO HS prn Qty: 30 RF: 0 acetaminophen [Tylenol] 325 MG tablet 650 mg PO Q4H PRN PRNRF: 0 fluoxetine 20 MG capsule 20 mg PO DAILY RF: 0 carbidopa-levodopa [Rytary] 1 EACH capsule, extended release 1 ea PO TID RF: 0 propranolol 40 MG tablet 40 mg PO DAILY RF: 0 naproxen sodium [Aleve] 220 MG tablet 220 mg PO Q12H RF: 0 amantadine HCl 100 MG tablet 200 mg PO BID RF: 0 polyethylene glycol 3350 17 GM powder in packet 17 gm PO DAILY PRNRF: 0 ropinirole [Requip] 0.25 MG tablet 0.25 mg PO TID 7 Days Qty: 20 RF: 0 melatonin 3 MG tablet 3 mg PO HS PRNRF: 0 magnesium hydroxide [Milk of Magnesia] 30 ML suspension 30 mg PO HS PRNRF: 0 bisacodyl 10 MG suppository 1 supp MS PRN PRNRF: 0 calcium carbonate 500 MG tablet,chewable 1 tab PO .Q6H, PRN PRNRF: 0 sodium phosphates [Fleet Enema] 118 ML enema 1 btl MS PRN PRNRF: 0 docusate sodium 100 MG capsule 100 mg PO BID PRNRF: 0 ondansetron HCl [Zofran] 4 mg Tablet 4 mg PO Q6H PRN PRNRF: 0 omeprazole 20 mg Capsule,Delayed Release(Dr/Ec) 20 mg PO DAILY RF: 0 Discharge Instructions Instructions: Aspiration Pneumonia (DC) Activity:: Activity as Tolerated Equipment/Supplies:: No Equipment Needed Diet:: Nothing by Mouth Discharge Orders Discharge Orders: Discharge Order (Routine); Ordered 02/26/18 Ordered By: Delia Spears Exam Narrative Exam Narrative: General: 52yo female, frail. Well developed and well nourished. No acute distress. A/Ox3. Pleasant and cooperative. HEENT: Normocephalic, Atraumatic. Conjunctiva clear, sclera non-icteric. PERRL. EOMI. Moist mucous membranes, oropharynx clear. Neck supple, no JVD, thyromegaly or lymphadenopathy. Cardiovascular: Regular rate and rhythm, S1S2, no S3 or S4. No murmur, rub, gallop. Respiratory: Chest expansion symmetrical, respirations unlabored. Lungs clear to auscultation, no adventitious breath sounds. GI: Abdomen round, soft, non-tender to palpation. Normoactive bowel sounds in all 4 quadrants. No hepatosplenomegaly or prominent masses. PEG tube left upper quadrant : deferred Extremities: Lower extremities without deformity or edema Neurological: non-focal. Tremulous, bilateral foot drop Psychiatric: pleasant and cooperative. Speech clear and articulate. Mood and affect normal. Eyes EOM: EOM intact bilaterally Neck Neck: normal visual inspection Thyroid: thyroid normal Resp Effort & Inspection: normal respiratory effort Auscultation: clear to auscultation bilaterally Cardio Rhythm: regular rhythm Heart Sounds: S1 normal, S2 normal and other (Soft systolic murmur) DS: Data Vitals/I&O Vitals and I&O: Vital Signs Temperature 36.4 C L 02/26/18 07:20 Temperature Source Tympanic 02/26/18 07:20 Pulse 70 02/26/18 07:20 Pulse Rhythm Regular 02/26/18 07:45 Pulse 70 02/22/18 13:40 Respiratory Rate 18 02/26/18 07:20 Respiratory Effort Non-Labored 02/26/18 07:45 Respiratory Depth Normal 02/26/18 07:45 Respiratory Pattern Normal 02/26/18 07:45 Blood Pressure 126/72 02/26/18 07:20 Blood Pressure Mean 101 02/22/18 13:31 Pulse Oximetry 93 L 02/26/18 07:20 Oxygen Delivery Method Room Air 02/26/18 07:20 Oxygen Flow Rate 0 02/26/18 07:20 Fraction of Inspired Oxygen (FIO2) 35 02/22/18 12:14 Pain Level 0 02/25/18 16:01 Comment 02/24/18 03:37 Intake & Output 02/25/18 02/25/18 02/26/18 11:59 23:59 11:59 Intake Total 1260 / 1260 160 / 160 130 / 130 Output Total Balance 1245 / 1245 145 / 145 130 / 130 Weight 52.7 kg 53.7 kg Intake: IV 160 / 160 160 / 160 130 / 130 Intake, Tube Feeding Amount 1100 / 1100 Output: Output, Residual Other: Urine Color Yellow Urine Appearance Clear Urine Odor Normal Comment pt dry at this time. pt incontinent of large amounts of urine. Stool Occult Blood Negative Stool Size Moderate Large Stool Characteristics Soft Soft Brown Voiding Methods Incontinent Diaper Diaper Incontinent Labs on day of discharge: Preliminary micro results at discharge 02/22/18 12:00 Blood Culture - Preliminary Blood NO GROWTH 72 HOURS 02/22/18 11:43 Blood Culture - Preliminary Blood NO GROWTH 72 HOURS
--- NOTE | 2018-02-26 10:00 | DSE_ITS ---
Date of service: 02/26/18 Time of Service: 09:57 DS: Diagnosis Discharge Diagnosis (1) Aspiration into airway: Status: Acute (2) Acute respiratory failure with hypoxia: Status: Resolved (3) Dysphagia: Status: Chronic (4) Dehydration: Status: Resolved (5) Failure to thrive: Status: Chronic (6) Parkinsons disease: Status: Chronic (7) Abnormal EKG: Status: Resolved (8) Urinary incontinence: Status: Chronic (9) Ambulatory dysfunction: Status: Chronic (10) Anemia: Status: Chronic Discharge Plan Disposition Patient Disposition: SNF (LEVEL 1) [facility] Condition: Stable Discharge Details Reason For Visit: ASPIRATION Admit Date/Time: 02/22/18 15:32 Admit Provider: Yonis Canseco Attending Provider: Yonis Canseco Primary Care Provider: Barbara Almaguer [facility] Course Hospital Course: Jaylyn is a pleasant 52-year-old woman with advanced Parkinson's, dysphasia, failure to thrive with recent PEG tube placement and initiation of tube feeds who presented to the emergency department at [facility] on 02/22/2018 from [facility] due to a witnessed episode of aspiration resulting in dyspnea. During her last hospitalization she did require ventilation for a similar episode. On arrival EMS noted that patient was hypoxic with an SPO2 of 79% on room air. She was placed on a nonrebreather and transported to the emergency department where she was placed on CPAP. She had significant and immediate improvement of her respiratory status. Was treated empirically with Unasyn for aspiration pneumonia, however was transitioned to Zosyn upon admission. She has remained n.p.o. and had no further breathing difficulties. Speech therapy did consult and recommended continuing tube feeding. There was discussion regarding a modified barium swallow, however this cannot be performed here at [facility]. The plan is to continue with tube feeding as her primary source of nutrition and to keep her n.p.o. Home Meds and New Rx's Prescriptions: Continue baclofen 10 MG tablet 10 mg PO HS prn Qty: 30 RF: 0 acetaminophen [Tylenol] 325 MG tablet 650 mg PO Q4H PRN PRNRF: 0 fluoxetine 20 MG capsule 20 mg PO DAILY RF: 0 carbidopa-levodopa [Rytary] 1 EACH capsule, extended release 1 ea PO TID RF: 0 propranolol 40 MG tablet 40 mg PO DAILY RF: 0 naproxen sodium [Aleve] 220 MG tablet 220 mg PO Q12H RF: 0 amantadine HCl 100 MG tablet 200 mg PO BID RF: 0 polyethylene glycol 3350 17 GM powder in packet 17 gm PO DAILY PRNRF: 0 ropinirole [Requip] 0.25 MG tablet 0.25 mg PO TID 7 Days Qty: 20 RF: 0 melatonin 3 MG tablet 3 mg PO HS PRNRF: 0 magnesium hydroxide [Milk of Magnesia] 30 ML suspension 30 mg PO HS PRNRF: 0 bisacodyl 10 MG suppository 1 supp HI PRN PRNRF: 0 calcium carbonate 500 MG tablet,chewable 1 tab PO .Q6H, PRN PRNRF: 0 sodium phosphates [Fleet Enema] 118 ML enema 1 btl HI PRN PRNRF: 0 docusate sodium 100 MG capsule 100 mg PO BID PRNRF: 0 ondansetron HCl [Zofran] 4 mg Tablet 4 mg PO Q6H PRN PRNRF: 0 omeprazole 20 mg Capsule,Delayed Release(Dr/Ec) 20 mg PO DAILY RF: 0 Discharge Instructions Instructions: Aspiration Pneumonia (DC) Activity:: Activity as Tolerated Equipment/Supplies:: No Equipment Needed Diet:: Nothing by Mouth Discharge Orders Discharge Orders: Discharge Order (Routine); Ordered 02/26/18 Ordered By: Delia Spears Exam Narrative Exam Narrative: General: 52yo female, frail. Well developed and well nourished. No acute distress. A/Ox3. Pleasant and cooperative. HEENT: Normocephalic, Atraumatic. Conjunctiva clear, sclera non-icteric. PERRL. EOMI. Moist mucous membranes, oropharynx clear. Neck supple, no JVD, thyromegaly or lymphadenopathy. Cardiovascular: Regular rate and rhythm, S1S2, no S3 or S4. No murmur, rub, gallop. Respiratory: Chest expansion symmetrical, respirations unlabored. Lungs clear to auscultation, no adventitious breath sounds. GI: Abdomen round, soft, non-tender to palpation. Normoactive bowel sounds in all 4 quadrants. No hepatosplenomegaly or prominent masses. PEG tube left upper quadrant : deferred Extremities: Lower extremities without deformity or edema Neurological: non-focal. Tremulous, bilateral foot drop Psychiatric: pleasant and cooperative. Speech clear and articulate. Mood and affect normal. Eyes EOM: EOM intact bilaterally Neck Neck: normal visual inspection Thyroid: thyroid normal Resp Effort & Inspection: normal respiratory effort Auscultation: clear to auscultation bilaterally Cardio Rhythm: regular rhythm Heart Sounds: S1 normal, S2 normal and other (Soft systolic murmur) DS: Data Vitals/I&O Vitals and I&O: Vital Signs Temperature 36.4 C L 02/26/18 07:20 Temperature Source Tympanic 02/26/18 07:20 Pulse 70 02/26/18 07:20 Pulse Rhythm Regular 02/26/18 07:45 Pulse 70 02/22/18 13:40 Respiratory Rate 18 02/26/18 07:20 Respiratory Effort Non-Labored 02/26/18 07:45 Respiratory Depth Normal 02/26/18 07:45 Respiratory Pattern Normal 02/26/18 07:45 Blood Pressure 126/72 02/26/18 07:20 Blood Pressure Mean 101 02/22/18 13:31 Pulse Oximetry 93 L 02/26/18 07:20 Oxygen Delivery Method Room Air 02/26/18 07:20 Oxygen Flow Rate 0 02/26/18 07:20 Fraction of Inspired Oxygen (FIO2) 35 02/22/18 12:14 Pain Level 0 02/25/18 16:01 Comment 02/24/18 03:37 Intake & Output 02/25/18 02/25/18 02/26/18 11:59 23:59 11:59 Intake Total 1260 / 1260 160 / 160 130 / 130 Output Total Balance 1245 / 1245 145 / 145 130 / 130 Weight 52.7 kg 53.7 kg Intake: IV 160 / 160 160 / 160 130 / 130 Intake, Tube Feeding Amount 1100 / 1100 Output: Output, Residual Other: Urine Color Yellow Urine Appearance Clear Urine Odor Normal Comment pt dry at this time. pt incontinent of large amounts of urine. Stool Occult Blood Negative Stool Size Moderate Large Stool Characteristics Soft Soft Brown Voiding Methods Incontinent Diaper Diaper Incontinent Labs on day of discharge: Preliminary micro results at discharge 02/22/18 12:00 Blood Culture - Preliminary Blood NO GROWTH 72 HOURS 02/22/18 11:43 Blood Culture - Preliminary Blood NO GROWTH 72 HOURS
--- NOTE | 2018-02-26 10:25 | PDOC.CMDIS ---
- If Service Date Differs Date of service: 02/26/18 Time of Service: 10:25 LACE Index Scoring Tool - Questions: Length of Stay (in days): 4 - 6 Acuity (Admit via E.D.?): Yes E.D. Visits: 5 - Answers: Total Score: 11 Risk of Readmission: High Risk Care Management Discharge Reason for Hospitalization: Aspiration Discharge Plan: Jaylyn will return to [facility] today via w/c van at 1100. MEAGHAN spoke with [facility], whom is aware of the above and they will provide w/c for transport.. Jaylyn remains NPO at this time due to aspiration risk, she will return to [facility] NPO. Patient/Family Education Needs: Review DC instructions, any limitations, and discuss Ask me Three Services Needed at Discharge: Long-Term Facility ([facility]), Transportation ([facility] W/C van.)
--- NOTE | 2018-02-26 10:38 | CMDISCH_ITS ---
- If Service Date Differs Date of service: 02/26/18 Time of Service: 10:25 LACE Index Scoring Tool - Questions: Length of Stay (in days): 4 - 6 Acuity (Admit via E.D.?): Yes E.D. Visits: 5 - Answers: Total Score: 11 Risk of Readmission: High Risk Care Management Discharge Reason for Hospitalization: Aspiration Discharge Plan: Jaylyn will return to [facility] today via w/c van at 1100. MEAGHAN spoke with [facility], whom is aware of the above and they will provide w/ c for transport.. Jaylyn remains NPO at this time due to aspiration risk, she will return to [facility] NPO. Patient/Family Education Needs: Review DC instructions, any limitations, and discuss Ask me Three Services Needed at Discharge: Nursing Home Facility ([facility]), Transportation ([facility] W/C van.)
== END 2018-02-26 11:27 | disposition skilled nursing facility (03) | DRG 205 ==
LOC: ER 13:26 → MS 15:17
PROVIDERS: Admitting Provider Internal Medicine; Emergency Provider Student in an Organized Health Care Education/Training Program; PCP Nurse Practitioner Family; Visit Provider Internal Medicine
DX: T17.990A Other foreign object in respiratory tract, part unspecified in causing asphyxiation, initial encounter (principal); J96.01 Acute respiratory failure with hypoxia; J69.0 Pneumonitis due to inhalation of food and vomit; E86.0 Dehydration; Z93.1 Gastrostomy status; R62.7 Adult failure to thrive; G20 Parkinson's disease; R26.2 Difficulty in walking, not elsewhere classified; R94.31 Abnormal electrocardiogram [ECG] [EKG]; R32 Unspecified urinary incontinence; D53.9 Nutritional anemia, unspecified; R13.12 Dysphagia, oropharyngeal phase
CPT/HCPCS: 36415; 80048; 80053; 82550; 82805; 85027; 87040; 87081; 92610; 93005; 96365; 97110; 97163; 97530; 99223; 99232; 99239; 99285; G8996; J1650; 71045; 81003; 82272; 83605; 83735; 84484; 85025; 85610; 93010; 94660; 99231; G0378; G8978; J0295; J2543; J7042

== ENCOUNTER 2018-02-22 12:40 | Outpatient (REF) | payer MEDICARE, MEDICAID, SELFPAY ==
[2018-02-22 14:04] LABS: Magnesium 1.9 mg/dL (1.8-2.4); PHOSPHORUS 4.6 mg/dL (2.6-4.7)
[2018-02-23 10:56] LABS: Prealbumin 28 mg/dL (20-40)
== END 2018-02-22 13:00 ==
LOC: LBN 12:40
PROVIDERS: Family Medicine; PCP Nurse Practitioner Family; Visit Provider Internal Medicine
DX: K72.90 Hepatic failure, unspecified without coma (principal); N17.9 Acute kidney failure, unspecified; D64.9 Anemia, unspecified; I10 Essential (primary) hypertension; E78.5 Hyperlipidemia, unspecified; E80.4 Gilbert syndrome
CPT/HCPCS: 83735; 84100; 84134

== ENCOUNTER 2018-03-07 10:31 | Emergency (ER) | payer MEDICARE, MEDICAID, SELFPAY ==
[2018-03-07] VITALS (37 sets, daily range): BP systolic 113–268; BP diastolic 51–214; PULSE 63–133; RESP 18–25; TEMP 36.6–37.1; O2SAT 85–100
--- NOTE | 2018-03-07 10:39 | W.ED.GENAD ---
Discharge Plan Disposition Patient Disposition: HOME Condition: Stable Discharge Details Chief Complaint: RespSymp Clinical Impression: Shortness of breath Primary Care Provider: Barbara Almaguer ED Provider: Jessica Brooks Home Meds and New Rx's Prescriptions: Continue baclofen 10 MG tablet 10 mg Feeding Tube HS prn Qty: 30 RF: 0 acetaminophen [Tylenol] 325 MG tablet 650 mg Feeding Tube Q4H PRN PRNRF: 0 fluoxetine 20 MG capsule 20 mg PO DAILY RF: 0 carbidopa-levodopa [Rytary] 1 EACH capsule, extended release 1 ea TID RF: 0 propranolol 40 MG tablet 40 mg Feeding Tube DAILY RF: 0 amantadine HCl 100 MG tablet 200 mg Feeding Tube BID RF: 0 polyethylene glycol 3350 17 GM powder in packet 17 gm Feeding Tube DAILY PRNRF: 0 melatonin 3 MG tablet 3 mg Feeding Tube HS PRNRF: 0 magnesium hydroxide [Milk of Magnesia] 30 ML suspension 30 mg PO HS PRNRF: 0 bisacodyl 10 MG suppository 1 supp [place] PRN PRNRF: 0 calcium carbonate 500 MG tablet,chewable 1 tab Feeding Tube .Q6H, PRN PRNRF: 0 sodium phosphates [Fleet Enema] 118 ML enema 1 btl [place] PRN PRNRF: 0 docusate sodium 100 MG capsule 100 mg BID PRNRF: 0 ondansetron HCl [Zofran] 4 mg Tablet 4 mg Feeding Tube Q6H PRN PRNRF: 0 omeprazole 20 mg Capsule,Delayed Release(Dr/Ec) 20 mg Feeding Tube DAILY RF: 0 ropinirole [Requip] 0.25 MG tablet 0.25 mg Feeding Tube TID RF: 0 No Action acetaminophen 650 mg Suppository 650 mg W[place] Q4H PRN PRNRF: 0 lorazepam 0.5 mg Tablet 0.25 mg Feeding Tube ONCE RF: 0 bisacodyl [Dulcolax (bisacodyl)] 10 mg Suppository 1 supp [place] PRN PRNRF: 0 naproxen sodium 220 mg Tablet 440 mg Feeding Tube BID RF: 0 lactose-reduced food with fibr [Jevity 1.2 Kamlesh] 0.06 gram-1.2 kcal/mL Liquid 1 Feeding Tube TID RF: 0 Discharge Instructions Instructions: Atrial Fibrillation (ED), Dyspnea (ED) Additional Instructions: Please return immediately to the emergency department if you develop any new or worsening symptoms or if you become otherwise concerned. It is extremely important that you are seen by your primary care doctor within the week in follow-up this visit. Referrals: Barbara Almaguer NP [Primary Care Provider] - Discharge Data Discharge Date/Time-TO BE ENTERED AT DEPARTURE: 03/07/18 15:31 Medical Decision Making Jaylyn So is a 52 y/o woman with history of Parkinson's, recurrent aspiration events, NSTEMI, multiple secondary medical problems and here from [facility] re[facility] by Dr. Nobles for evaluation of possible hypoxia. Upon arrival, patient was satting well in the high 90s on 10 L by nonrebreather. She was placed on high flow nasal cannula, and then weaned to 3 L nasal cannula with sats remaining in the high 90s. There was no respiratory distress. On exam patient is chronically ill-appearing, but with good color, lungs clear to auscultation. Generalized tremor at baseline per Dr. Nobles. Neuro exam is nonfocal. Concern for possible pneumonia, aspiration event versus other, however we did have difficulty obtaining a reliable pulse oximetry until an ear probe was placed. Finger probe yielded poor waveform with sats in the 70s, consistent with what was seen at [facility]. Suspect that low sats in [facility] may have been artifact. Exam/history not consistent with sepsis, acute aortic etiology. Plan for EKG, chest x-ray, screening labs, ABG, telemetry. Will monitor and reassess. EKG is extremely difficult to interpret given artifact from baseline tremor. Unclear rhythm, possible atrial fibrillation. I had a lengthy discusion with Dr. Nobles at [facility] regarding abnormal EKG and elevated d-dimer. At this time, given patient's tremor, patient would not be able to undergo CT scan without sedation and possible intubation. Patient's exam and history make PE doubtful at this time. Risk to patient of sedation versus CT scan greater than possible benefit at this time. Dr. Nobles is in agreement, and will continue to evaluate patient at [facility] regarding A. fib and possible further treatment. Given unclear rhythm and patient significant comorbidities will hold anticoagulation at this time. In exam room, patient's pulse is between 80 and 100 on multiple examinations. On monitor, patient does appear to be in sinus rhythm with frequent PVCs when she is calm and tremor lessens, however tremor is significant enough to make rhythm strip on monitor unreliable. Repeat troponin negative, repeat EKG unchanged from prior, uninterpretable. Patient satting 95% on room air. She has no complaint. Lengthy discussion with patient regarding return to emergency department precautions and importance of outpatient follow-up. She will be discharged to [facility]. Medical Records Medical records reviewed: Yes I reviewed the patient's medical records. Imaging Data Radiologic Study: Attestation: I personally reviewed and interpreted this imaging study as follows: Radiologist's impression: PORTABLE SEMI ERECT AP CHEST: Allowing for the rotation of the patient, the lungs are clear. There is no evidence of a pleural effusion. The heart is not enlarged. SUMMARY: No evidence of acute cardiopulmonary disease. Lab Data Lab results reviewed: Yes I reviewed the patient's lab results. ECG Data Attestation: I personally reviewed and interpreted this ECG (s) as follows: Interpretation: EKG difficult to interpret secondary to severe artifact from baseline patient tremor. Unclear rhythm. No apparent STEMI. EKG #2 again difficult to interpret secondary to severe artifact from baseline patient tremor. Unclear rhythm. No apparent STEMI. HPI General Mode of arrival: EMS. Date/Time Provider Initiated Documentation: 03/07/18 10:37. Limitations to Documentation: physical limitation. Information obtained by: patient, RN notes reviewed and old records reviewed. HPI Narrative: Jaylyn oS is a 52 y/o woman with history of Parkinson's disease, hypertension, hyperlipidemia, status post PEG tube placement, recurrent aspiration events presenting to the emergency department with hypoxia. I was called by Dr. Nobles at [facility] regarding this patient, who reported to me that patient became agitated this morning after choking on a sip of water and seemingly short of breath. Given her base line severe chronic disease, her examination is difficult. They were not able to obtain a good waveform incision is very health and rehab on pulse oximetry, and there was concern for possible hypoxia and patient was transferred to emergency department. It was reported to me the patient takes nothing by mouth other than small sips of water. It was also reported to me the patient has a significant chronic tremor, and also significant difficulty with speech secondary to her chronic disease, both of which are at baseline. Prior to the event this morning patient was in her usual state of health. Patient is alert and following commands upon her arrival to the emergency department and seemingly nods that she feels short of breath. She is very difficult to understand and thus obtain history from, but is speaking in attempt to communicate without apparent shortness of breath. She shakes her head no when asked that she has any pain or other symptoms, and her review of systems was obtained in this manner. Related Data Home Medications Medication Instructions Recorded Confirmed baclofen 10 mg FEEDING TUBE HS prn #30 07/25/16 03/08/18 tab-cap amantadine HCl 200 mg FEEDING TUBE BID 08/15/16 03/08/18 acetaminophen [Tylenol] 650 mg FEEDING TUBE Q4H PRN PRN 11/15/16 03/08/18 tab-cap fluoxetine 20 mg PO DAILY tab-cap 11/15/16 03/08/18 polyethylene glycol 3350 17 gm FEEDING TUBE DAILY PRN 08/15/17 03/08/18 carbidopa-levodopa [Rytary] 1 ea TID 08/30/17 03/08/18 propranolol 40 mg FEEDING TUBE DAILY 12/25/17 03/08/18 bisacodyl 1 supp WY PRN PRN 01/04/18 03/08/18 calcium carbonate 1 tab FEEDING TUBE .Q6H, PRN PRN 01/04/18 03/08/18 docusate sodium 100 mg BID PRN 01/04/18 03/08/18 magnesium hydroxide [Milk of 30 mg PO HS PRN 01/04/18 03/08/18 Magnesia] melatonin 3 mg FEEDING TUBE HS PRN 01/04/18 03/08/18 sodium phosphates [Fleet Enema] 1 btl WY PRN PRN 01/04/18 03/08/18 ondansetron HCl [Zofran] 4 mg FEEDING TUBE Q6H PRN PRN 02/06/18 03/08/18 omeprazole 20 mg FEEDING TUBE DAILY 02/22/18 03/08/18 ropinirole [Requip] 0.25 mg FEEDING TUBE TID 03/07/18 03/08/18 acetaminophen 650 mg WY Q4H PRN PRN 03/08/18 03/08/18 bisacodyl [Dulcolax (bisacodyl)] 1 supp WY PRN PRN 03/08/18 03/08/18 lactose-reduced food with fibr 1 FEEDING TUBE TID 03/08/18 [Jevity 1.2 Kamlesh] lorazepam 0.25 mg FEEDING TUBE ONCE 03/08/18 03/08/18 naproxen sodium 440 mg FEEDING TUBE BID 03/08/18 03/08/18 Allergies Allergy/AdvReac Type Severity Reaction Status Date / Time environmental Allergy Uncoded 02/06/18 10:04 General Stated Complaint: RespSymp SHAWN: 2 Review of Systems Review of Systems Constitutional: denies fevers Eyes: denies eye pain ENT: denies facial pain, dental pain, sore throat Cardiovascular: denies chest pain Respiratory: denies cough, reports SOB GI: denies abdominal pain, vomiting, diarrhea : denies flank pain MSK: denies back pain, neck pain, arthralgias, myalgias Skin: denies rash Neuro: denies headaches Exam Narrative Exam Narrative: Constitutional: chronically ill-appearing, speaking profusely but with garbled speech HENT: head atraumatic, normocephalic normal inspection, mucous membranes moist Eyes: conjunctiva normal, sclera normal, pupils 3mm b/l Neck: no stridor, normal ROM, trachea midline Chest: normal inspection Resp: tachypneic, LCTAB Cardio: normal rate, normal rhythm, no murmur appreciated GI: abdomen soft, non-tender, non-distended, PEG tube in placement Back: normal inspection, no rash Skin: warm, dry, normal color, no rash Neuro: alert, not altered, grossly non-focal, increased tone throughout, generalized tremor Ext: no edema Psych: normal mood, normal affect Course Vital Signs Temperature 36.6 C 03/07/18 10:35 Pulse 82 03/07/18 10:35 Respiratory Rate 25 H 03/07/18 10:35 Blood Pressure 167/122 H 03/07/18 10:35 Pulse Oximetry 98 03/07/18 10:35 Temperature 36.6 C 03/07/18 10:35 Temperature Source Skin 03/07/18 10:35 Pulse 82 03/07/18 10:35 Respiratory Rate 25 H 03/07/18 10:35 Blood Pressure 167/122 H 03/07/18 10:35 Pulse Oximetry 98 03/07/18 10:35 Oxygen Delivery Method Non-Rebreather 03/07/18 10:35 Comment 03/07/18 10:35
[2018-03-07 11:02] LABS: BE 5.1 mmol/L (-3-3); HCO3 29 mmol/L (22-28); pCO2 42 mmHg (34-47); pH 7.45 (7.35-7.45); pO2 137 mmHg (83-108)
[2018-03-07 11:06] LABS: FIO2L 3 L; Site Right Radial
[2018-03-07 11:17] LABS: tCO2 32 mmol/L (22-29)
[2018-03-07 11:18] LABS: sO2 99 % (94-98)
[2018-03-07 11:28] LABS: Abs Immature Grans 0.02 k/cumm (0.0-0.09); Absolute Basophil Count 0.07 k/cumm (0.0-0.2); Absolute Eosinophil Count 0.15 k/cumm (0.0-0.7); Absolute Lymphocyte Count 1.77 k/cumm (1.2-3.4); Absolute Monocyte Count 1.02 k/cumm (0.11-0.7); Absolute Neutrophil Count 3.87 k/cumm (1.2-6.7); Eosinophils % 2.2; HCT 32.9 % (36.0-46.0); HGB 10.6 g/dL (12.0-15.5); Immature Grans % 0.3; Lymphocytes % 25.7; Mean Corp. HGB Concentration 32.2 g/dL (32.0-36.0); Mean Corpuscular Hemoglobin 31.1 pg (27.0-33.0); Mean Corpuscular Volume 96.5 fL (80-95); Mean Platelet Volume 10.5 fL (8.0-11.0); Monocytes % 14.8; Platelet Count 310 x1000/uL (130-400); RBC 3.41 m/cumm (4.00-5.20); RBC Distribution Width 14.9 % (11.7-14.6)
--- NOTE | 2018-03-07 11:42 | DI.RAD_ITS ---
SYMPTOM/DIAGNOSIS: SOB PORTABLE SEMI ERECT AP CHEST: Allowing for the rotation of the patient, the lungs are clear. There is no evidence of a pleural effusion. The heart is not enlarged. SUMMARY: No evidence of acute cardiopulmonary disease.
[2018-03-07 11:45] LABS: ALT 24 U/L (12-78); AST 4 U/L (15-37); Albumin 3.6 g/dL (3.4-5.0); Alkaline Phosphatase 132 U/L (46-116); Anion Gap 5.4 mmol/L (3-11); BUN 31 mg/dL (7-18); Bilirubin, Total 0.5 mg/dL (0.2-1.0); CO2 32.6 mmol/L (21.0-32.0); CREATININE 0.72 mg/dL (0.55-1.02); Calcium 9.2 mg/dL (8.5-10.1); Chloride 103 mmol/L (98-107); Glucose 89 mg/dL (70-100); Potassium 4.4 mmol/L (3.5-5.1); Sodium 141 mmol/L (136-145); Total Protein 7.6 g/dL (6.4-8.2)
[2018-03-07 11:46] LABS: Troponin I < 0.02 ng/mL (0.00-0.06)
[2018-03-07 11:57] LABS: NT-proBNP 728 pg/mL
[2018-03-07 12:01] LABS: D-Dimer 730 ng/mlFEU (<500)
[2018-03-07 14:26] LABS: Troponin I < 0.02 ng/mL (0.00-0.06)
--- NOTE | 2018-03-07 14:33 | ED.GENADUL_ITS ---
Discharge Plan Disposition Patient Disposition: HOME Condition: Stable Discharge Details Chief Complaint: RespSymp Clinical Impression: Shortness of breath Primary Care Provider: Barbara Almaguer ED Provider: Jessica Brooks Home Meds and New Rx's Prescriptions: Continue baclofen 10 MG tablet 10 mg Feeding Tube HS prn Qty: 30 RF: 0 acetaminophen [Tylenol] 325 MG tablet 650 mg Feeding Tube Q4H PRN PRNRF: 0 fluoxetine 20 MG capsule 20 mg PO DAILY RF: 0 carbidopa-levodopa [Rytary] 1 EACH capsule, extended release 1 ea TID RF: 0 propranolol 40 MG tablet 40 mg Feeding Tube DAILY RF: 0 amantadine HCl 100 MG tablet 200 mg Feeding Tube BID RF: 0 polyethylene glycol 3350 17 GM powder in packet 17 gm Feeding Tube DAILY PRNRF: 0 melatonin 3 MG tablet 3 mg Feeding Tube HS PRNRF: 0 magnesium hydroxide [Milk of Magnesia] 30 ML suspension 30 mg PO HS PRNRF: 0 bisacodyl 10 MG suppository 1 supp IL PRN PRNRF: 0 calcium carbonate 500 MG tablet,chewable 1 tab Feeding Tube .Q6H, PRN PRNRF: 0 sodium phosphates [Fleet Enema] 118 ML enema 1 btl IL PRN PRNRF: 0 docusate sodium 100 MG capsule 100 mg BID PRNRF: 0 ondansetron HCl [Zofran] 4 mg Tablet 4 mg Feeding Tube Q6H PRN PRNRF: 0 omeprazole 20 mg Capsule,Delayed Release(Dr/Ec) 20 mg Feeding Tube DAILY RF: 0 ropinirole [Requip] 0.25 MG tablet 0.25 mg Feeding Tube TID RF: 0 No Action acetaminophen 650 mg Suppository 650 mg IL Q4H PRN PRNRF: 0 lorazepam 0.5 mg Tablet 0.25 mg Feeding Tube ONCE RF: 0 bisacodyl [Dulcolax (bisacodyl)] 10 mg Suppository 1 supp IL PRN PRNRF: 0 naproxen sodium 220 mg Tablet 440 mg Feeding Tube BID RF: 0 lactose-reduced food with fibr [Jevity 1.2 Kamlesh] 0.06 gram-1.2 kcal/mL Liquid 1 Feeding Tube TID RF: 0 Discharge Instructions Instructions: Atrial Fibrillation (ED), Dyspnea (ED) Additional Instructions: Please return immediately to the emergency department if you develop any new or worsening symptoms or if you become otherwise concerned. It is extremely important that you are seen by your primary care doctor within the week in follow-up this visit. Referrals: Barbara Almaguer NP [Primary Care Provider] - Discharge Data Discharge Date/Time-TO BE ENTERED AT DEPARTURE: 03/07/18 15:31 Medical Decision Making Jaylyn So is a 52 y/o woman with history of Parkinson's, recurrent aspiration events, NSTEMI, multiple secondary medical problems and here from [facility] re[facility] by Dr. Nobles for evaluation of possible hypoxia. Upon arrival, patient was satting well in the high 90s on 10 L by nonrebreather. She was placed on high flow nasal cannula, and then weaned to 3 L nasal cannula with sats remaining in the high 90s. There was no respiratory distress. On exam patient is chronically ill-appearing, but with good color, lungs clear to auscultation. Generalized tremor at baseline per Dr. Nobles. Neuro exam is nonfocal. Concern for possible pneumonia, aspiration event versus other , however we did have difficulty obtaining a reliable pulse oximetry until an ear probe was placed. Finger probe yielded poor waveform with sats in the 70s, consistent with what was seen at [facility]. Suspect that low sats in [facility] may have been artifact. Exam/history not consistent with sepsis, acute aortic etiology. Plan for EKG, chest x-ray, screening labs, ABG, telemetry. Will monitor and reassess. EKG is extremely difficult to interpret given artifact from baseline tremor. Unclear rhythm, possible atrial fibrillation. I had a lengthy discusion with Dr. Nobles at [facility] regarding abnormal EKG and elevated d-dimer. At this time, given patient's tremor, patient would not be able to undergo CT scan without sedation and possible intubation. Patient's exam and history make PE doubtful at this time. Risk to patient of sedation versus CT scan greater than possible benefit at this time. Dr. Nobles is in agreement, and will continue to evaluate patient at [facility] regarding A. fib and possible further treatment. Given unclear rhythm and patient significant comorbidities will hold anticoagulation at this time. In exam room, patient's pulse is between 80 and 100 on multiple examinations. On monitor, patient does appear to be in sinus rhythm with frequent PVCs when she is calm and tremor lessens, however tremor is significant enough to make rhythm strip on monitor unreliable. Repeat troponin negative, repeat EKG unchanged from prior, uninterpretable. Patient satting 95% on room air. She has no complaint. Lengthy discussion with patient regarding return to emergency department precautions and importance of outpatient follow-up. She will be [facility]. Medical Records Medical records reviewed: Yes I reviewed the patient's medical records. Imaging Data Radiologic Study: Attestation: I personally reviewed and interpreted this imaging study as follows: Radiologist's impression: PORTABLE SEMI ERECT AP CHEST: Allowing for the rotation of the patient, the lungs are clear. There is no evidence of a pleural effusion. The heart is not enlarged. SUMMARY: No evidence of acute cardiopulmonary disease. Lab Data Lab results reviewed: Yes I reviewed the patient's lab results. ECG Data Attestation: I personally reviewed and interpreted this ECG (s) as follows: Interpretation: EKG difficult to interpret secondary to severe artifact from baseline patient tremor. Unclear rhythm. No apparent STEMI. EKG #2 again difficult to interpret secondary to severe artifact from baseline patient tremor. Unclear rhythm. No apparent STEMI. HPI General Mode of arrival: EMS . Date/Time Provider Initiated Documentation: 03/07/18 10:37 . Limitations to Documentation: physical limitation . Information obtained by: patient, RN notes reviewed and old records reviewed . HPI Narrative: Jaylyn So is a 52 y/o woman with history of Parkinson's disease, hypertension, hyperlipidemia, status post PEG tube placement, recurrent aspiration events presenting to the emergency department with hypoxia. I was called by Dr. Nobles at [facility] regarding this patient, who reported to me that patient became agitated this morning after choking on a sip of water and seemingly short of breath. Given her base line severe chronic disease, her examination is difficult. They were not able to obtain a good waveform incision is very [facility] on pulse oximetry, and there was concern for possible hypoxia and patient was transferred to emergency department. It was reported to me the patient takes nothing by mouth other than small sips of water. It was also reported to me the patient has a significant chronic tremor, and also significant difficulty with speech secondary to her chronic disease, both of which are at baseline. Prior to the event this morning patient was in her usual state of health. Patient is alert and following commands upon her arrival to the emergency department and seemingly nods that she feels short of breath. She is very difficult to understand and thus obtain history from, but is speaking in attempt to communicate without apparent shortness of breath. She shakes her head no when asked that she has any pain or other symptoms, and her review of systems was obtained in this manner. Related Data Home Medications Medication Instructions Recorded Confirmed baclofen 10 mg FEEDING TUBE HS prn #30 07/25/16 03/08/18 tab-cap amantadine HCl 200 mg FEEDING TUBE BID 08/15/16 03/08/18 acetaminophen [Tylenol] 650 mg FEEDING TUBE Q4H PRN PRN 11/15/16 03/08/18 tab-cap fluoxetine 20 mg PO DAILY tab-cap 11/15/16 03/08/18 polyethylene glycol 3350 17 gm FEEDING TUBE DAILY PRN 08/15/17 03/08/18 carbidopa-levodopa [Rytary] 1 ea TID 08/30/17 03/08/18 propranolol 40 mg FEEDING TUBE DAILY 12/25/17 03/08/18 bisacodyl 1 supp IL PRN PRN 01/04/18 03/08/18 calcium carbonate 1 tab FEEDING TUBE .Q6H, PRN PRN 01/04/18 03/08/18 docusate sodium 100 mg BID PRN 01/04/18 03/08/18 magnesium hydroxide [Milk of 30 mg PO HS PRN 01/04/18 03/08/18 Magnesia] melatonin 3 mg FEEDING TUBE HS PRN 01/04/18 03/08/18 sodium phosphates [Fleet Enema] 1 btl IL PRN PRN 01/04/18 03/08/18 ondansetron HCl [Zofran] 4 mg FEEDING TUBE Q6H PRN PRN 02/06/18 03/08/18 omeprazole 20 mg FEEDING TUBE DAILY 02/22/18 03/08/18 ropinirole [Requip] 0.25 mg FEEDING TUBE TID 03/07/18 03/08/18 acetaminophen 650 mg IL Q4H PRN PRN 03/08/18 03/08/18 bisacodyl [Dulcolax (bisacodyl)] 1 supp IL PRN PRN 03/08/18 03/08/18 lactose-reduced food with fibr 1 FEEDING TUBE TID 03/08/18 [Jevity 1.2 Kamlesh] lorazepam 0.25 mg FEEDING TUBE ONCE 03/08/18 03/08/18 naproxen sodium 440 mg FEEDING TUBE BID 03/08/18 03/08/18 Allergies Allergy/AdvReac Type Severity Reaction Status Date / Time environmental Allergy Uncoded 02/06/18 10:04 General Stated Complaint: RespSymp SHAWN: 2 Review of Systems Review of Systems Constitutional: denies fevers Eyes: denies eye pain ENT: denies facial pain, dental pain, sore throat Cardiovascular: denies chest pain Respiratory: denies cough, reports SOB GI: denies abdominal pain, vomiting, diarrhea : denies flank pain MSK: denies back pain, neck pain, arthralgias, myalgias Skin: denies rash Neuro: denies headaches Exam Narrative Exam Narrative: Constitutional: chronically ill-appearing, speaking profusely but with garbled speech HENT: head atraumatic, normocephalic normal inspection, mucous membranes moist Eyes: conjunctiva normal, sclera normal, pupils 3mm b/l Neck: no stridor, normal ROM, trachea midline Chest: normal inspection Resp: tachypneic, LCTAB Cardio: normal rate, normal rhythm, no murmur appreciated GI: abdomen soft, non-tender, non-distended, PEG tube in placement Back: normal inspection, no rash Skin: warm, dry, normal color, no rash Neuro: alert, not altered, grossly non-focal, increased tone throughout, generalized tremor Ext: no edema Psych: normal mood, normal affect Course Vital Signs Temperature 36.6 C 03/07/18 10:35 Pulse 82 03/07/18 10:35 Respiratory Rate 25 H 03/07/18 10:35 Blood Pressure 167/122 H 03/07/18 10:35 Pulse Oximetry 98 03/07/18 10:35 Temperature 36.6 C 03/07/18 10:35 Temperature Source Skin 03/07/18 10:35 Pulse 82 03/07/18 10:35 Respiratory Rate 25 H 03/07/18 10:35 Blood Pressure 167/122 H 03/07/18 10:35 Pulse Oximetry 98 03/07/18 10:35 Oxygen Delivery Method Non-Rebreather 03/07/18 10:35 Comment 03/07/18 10:35
== END 2018-03-07 15:31 | disposition home or self-care (01) ==
PROVIDERS: Emergency Provider Student in an Organized Health Care Education/Training Program; PCP Nurse Practitioner Family
DX: R06.02 Shortness of breath (principal); I10 Essential (primary) hypertension; G20 Parkinson's disease
CPT/HCPCS: 36415; 80053; 82805; 93005; 99285; 36600; 71045; 83880; 84484; 85025; 85379; 93010

== ENCOUNTER 2018-03-08 09:48 | Inpatient (IN) | payer MEDICARE, MEDICAID, SELFPAY ==
[2018-03-08] VITALS (56 sets, daily range): BP systolic 106–262; BP diastolic 53–217; PULSE 82–194; RESP 16–29; TEMP 37.5–39.6; O2SAT 90–98
--- NOTE | 2018-03-08 09:50 | DI.RAD_ITS ---
SYMPTOM/DIAGNOSIS: FEVER AP AND LATERAL CHEST: The heart is normal in size. The lungs are clear. The mediastinal structures and pleura appear intact. CONCLUSION: Normal chest.
[2018-03-08 10:07] LABS: Lactate-non-spesis 1.3 mmol/L (0.6-1.4)
[2018-03-08 10:09] LABS: Abs Immature Grans 0.02 k/cumm (0.0-0.09); Absolute Basophil Count 0.03 k/cumm (0.0-0.2); Absolute Lymphocyte Count 0.52 k/cumm (1.2-3.4); Absolute Monocyte Count 0.19 k/cumm (0.11-0.7); Absolute Neutrophil Count 7.62 k/cumm (1.2-6.7); Basophils % 0.4; HCT 32.2 % (36.0-46.0); HGB 10.4 g/dL (12.0-15.5); Immature Grans % 0.2; Lymphocytes % 6.2; Mean Corp. HGB Concentration 32.3 g/dL (32.0-36.0); Mean Corpuscular Hemoglobin 31.5 pg (27.0-33.0); Mean Corpuscular Volume 97.6 fL (80-95); Mean Platelet Volume 11.1 fL (8.0-11.0); Monocytes % 2.3; Neutrophils % 90.9; Platelet Count 307 x1000/uL (130-400); RBC Distribution Width 15.5 % (11.7-14.6); White Blood Cell Count 8.38 k/cumm (4.4-10.8)
--- NOTE | 2018-03-08 10:12 | W.ED.GENAD ---
Discharge Plan Disposition Patient Disposition: [facility] INPATIENT Condition: Critical Discharge Details Chief Complaint: Fever Clinical Impression: SIRS (systemic inflammatory response syndrome) Reason For Visit: UTI Admit Date/Time: 03/08/18 11:52 Admit Provider: Dick Nicole Attending Provider: Dick Nicole Primary Care Provider: Barbara Almaguer ED Provider: Hemant Brooks Medical Decision Making 10:25 --52-year-old female with Parkinson's, recurrent aspiration events, status post PEG tube placement, here with altered mental status and fever. Patient is febrile, altered and tachycardic meeting Sirs criteria. Suspect sepsis. Consider pneumonia as source versus UTI. Will initiate IVF. Spoke with provider at nursing facility who notes worsening condition overnight. Will check blood cultures and lactate, UA and cxr. 11:12 -- cxr interpreted by radiology: normal. Initial labs reviewed: no leukocytosis 11:30 -- Still awaiting UA. Nursing notes only small amount of purulent urine in catheter tubing. Patient reassessed. She has received 500 mL bolus of crystalloid. Heart rate has improved but still tachycardic. Will give additional 500 mL bolus to hopefully improve urine output. Given purulence of urine and workup at this point, I think it is prudent to start antibiotic coverage. I will treat with ceftriaxone 2 g. Meningitis still remains on differential and should be considered if urinalysis unrevealing. LP would be difficult at this point given tremor and inability to follow command. Remains febrile. Will give acetaminophen IV. 11:45 -- Spoke with Dr. Nicole- we discussed presentation, ED course, and critical condition. He will admit patient to ICU. Care transitioned to Dr. Nicole. -- CT head to assess for hemorrhage given fever, altered mentation and hypertention - interpreted by radiology, negative. HPI General Mode of arrival: EMS. Date/Time Provider Initiated Documentation: 03/08/18 09:50. Limitations to Documentation: altered mental status (patient unable to provide history). Information obtained by: RN/MD and old records reviewed. HPI Narrative: 52-year-old female with multiple medical problems including Parkinson's disease, recurrent aspiration, now status post PEG tube placement, here after being sent over from nursing rehab facility with altered mental status and fever. History is limited as patient is nonverbal at this time. Patient was seen here in the emergency department yesterday for possible hypoxia. There was concern for possible pneumonia but chest x-ray was unremarkable. Patient was saturating well here in the emergency department and without complaint. She was discharged back to nursing facility after significant nondiagnostic workup. [facility] physician called noting that patient condition has worsened overnight and that she now seems much more confused and has fever. She is concerned about potential for an aspiration pneumonia. Related Data Home Medications Medication Instructions Recorded Confirmed baclofen 10 mg FEEDING TUBE HS prn #30 07/25/16 03/08/18 tab-cap amantadine HCl 200 mg FEEDING TUBE BID 08/15/16 03/08/18 acetaminophen [Tylenol] 650 mg FEEDING TUBE Q4H PRN PRN 11/15/16 03/08/18 tab-cap fluoxetine 20 mg PO DAILY tab-cap 11/15/16 03/08/18 polyethylene glycol 3350 17 gm FEEDING TUBE DAILY PRN 08/15/17 03/08/18 carbidopa-levodopa [Rytary] 1 ea TID 08/30/17 03/08/18 propranolol 40 mg FEEDING TUBE DAILY 12/25/17 03/08/18 bisacodyl 1 supp [place] PRN PRN 01/04/18 03/08/18 calcium carbonate 1 tab FEEDING TUBE .Q6H, PRN PRN 01/04/18 03/08/18 docusate sodium 100 mg BID PRN 01/04/18 03/08/18 magnesium hydroxide [Milk of 30 mg PO HS PRN 01/04/18 03/08/18 Magnesia] melatonin 3 mg FEEDING TUBE HS PRN 01/04/18 03/08/18 sodium phosphates [Fleet Enema] 1 btl VA PRN PRN 01/04/18 03/08/18 ondansetron HCl [Zofran] 4 mg FEEDING TUBE Q6H PRN PRN 02/06/18 03/08/18 omeprazole 20 mg FEEDING TUBE DAILY 02/22/18 03/08/18 ropinirole [Requip] 0.25 mg FEEDING TUBE TID 03/07/18 03/08/18 acetaminophen 650 mg VA Q4H PRN PRN 03/08/18 03/08/18 bisacodyl [Dulcolax (bisacodyl)] 1 supp VA PRN PRN 03/08/18 03/08/18 lactose-reduced food with fibr 1 FEEDING TUBE TID 03/08/18 [Jevity 1.2 Kamlesh] lorazepam 0.25 mg FEEDING TUBE ONCE 03/08/18 03/08/18 naproxen sodium 440 mg FEEDING TUBE BID 03/08/18 03/08/18 Allergies Allergy/AdvReac Type Severity Reaction Status Date / Time environmental Allergy Uncoded 02/06/18 10:04 General Stated Complaint: Fever SHAWN: 2 Review of Systems Review of Systems Unobtainable due to mental condition [facility] Family History Mother AMI (acute myocardial infarction) Father AMI (acute myocardial infarction) Medical History 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) Ambulatory dysfunction (Chronic) Recurrent aspiration events (Chronic) Failure to thrive (Chronic) PEG (percutaneous endoscopic gastrostomy) adjustment/replacement/removal (Chronic) Seizure (Resolved) NMS (neuroleptic malignant syndrome) (Resolved) Abnormal EKG (Resolved) Hyperlipidemia type III (Chronic) Anemia (Chronic) History of DIC syndrome (Resolved) Toxic metabolic encephalopathy (Resolved) UTI (urinary tract infection) (Resolved) Dysphagia (Chronic) Encephalopathy acute (Resolved) Fall (Chronic) Acute respiratory failure with hypoxia (Resolved) Pneumonia (Resolved) Anemia (Chronic) Acute kidney injury (Resolved) Parkinsons disease (Chronic) Secondary rhabdomyolysis (Resolved) Non-ST elevation NE (NSTEMI) (Resolved) Essential hypertension (Chronic) Hyperlipidemia (Chronic) Obesity (Chronic) Osteoarthritis (Chronic) Parkinson's disease (Chronic) Social History lives independently: No number of children: 2 number of grandchildren: 1 Smoking/Tobacco Use Status: Never alcohol intake: never substance use type: does not use Surgical History History of vaginal hysterectomy (Resolved) Exam Const General: ill appearing Orientation: alert and confused HENWA Head: normocephalic and atraumatic Mouth: moist mucous membranes Eyes Conjunctivae: normal conjunctivae Sclera: normal sclerae Neck Neck: trachea midline and supple Resp Auscultation: clear to auscultation bilaterally, no rales, no rhonchi and no wheezes Cardio Jugular venous pressure: no JVD Rate: regular rate and not tachycardic Rhythm: regular rhythm GI Palpation: soft, not firm, no guarding, no masses, not rigid and nontender Skin General skin exam: no rashes or lesions noted Neuro General: obtunded Cranial Nerves: PERRL Cognition: abnormal cognition Other: patient unresponsive to verbal stimuli Extrem General: no edema Psych Speech and Movement: other (unresponsive, not following commands) Course Vital Signs Temperature 38.4 C H 03/08/18 09:44 Pulse 123 H 03/08/18 09:44 Respiratory Rate 18 03/08/18 09:44 Blood Pressure 154/112 H 03/08/18 09:44 Pulse Oximetry 95 03/08/18 09:44 Temperature 38.4 C H 03/08/18 09:44 Temperature Source Temporal Artery Scan 03/08/18 09:44 Pulse 123 H 03/08/18 09:44 Respiratory Rate 18 03/08/18 09:44 Blood Pressure 154/112 H 03/08/18 09:44 Blood Pressure Position Supine 03/08/18 09:44 Pulse Oximetry 95 03/08/18 09:44 Oxygen Delivery Method Room Air 03/08/18 09:44 Oxygen Flow Rate 0 03/08/18 09:44 Lab/Test Results Lab/Test Results: 03/08/18 09:50 Blood Blood Culture - Pending 03/08/18 09:50 Blood Blood Culture - Pending Laboratory Tests Range/Units 03/08/18 09:50 Lactate (0.6-1.4) mmol/L 1.3
[2018-03-08 10:28] LABS: ALT 28 U/L (12-78); AST 20 U/L (15-37); Albumin 3.6 g/dL (3.4-5.0); Alkaline Phosphatase 114 U/L (46-116); Anion Gap 11.2 mmol/L (3-11); BUN 40 mg/dL (7-18); Bilirubin, Total 0.5 mg/dL (0.2-1.0); CO2 28.8 mmol/L (21.0-32.0); CREATININE 0.87 mg/dL (0.55-1.02); Calcium 9.8 mg/dL (8.5-10.1); Chloride 107 mmol/L (98-107); Glucose 175 mg/dL (70-100); Magnesium 1.9 mg/dL (1.8-2.4); Potassium 4.2 mmol/L (3.5-5.1); Sodium 147 mmol/L (136-145); Total Protein 7.8 g/dL (6.4-8.2); Troponin I < 0.02 ng/mL (0.00-0.06)
--- NOTE | 2018-03-08 10:28 | ED.GENADUL_ITS ---
Discharge Plan Disposition Patient Disposition: [facility] INPATIENT Condition: Critical Discharge Details Chief Complaint: Fever Clinical Impression: SIRS (systemic inflammatory response syndrome) Reason For Visit: UTI Admit Date/Time: 03/08/18 11:52 Admit Provider: Dick Nicole Attending Provider: Dick Nicole Primary Care Provider: Barbara Almaguer ED Provider: Hemant Brooks Medical Decision Making 10:25 --52-year-old female with Parkinson's, recurrent aspiration events, status post PEG tube placement, here with altered mental status and fever. Patient is febrile, altered and tachycardic meeting Sirs criteria. Suspect sepsis. Consider pneumonia as source versus UTI. Will initiate IVF. Spoke with provider at nursing facility who notes worsening condition overnight. Will check blood cultures and lactate, UA and cxr. 11:12 -- cxr interpreted by radiology: normal. Initial labs reviewed: no leukocytosis 11:30 -- Still awaiting UA. Nursing notes only small amount of purulent urine in catheter tubing. Patient reassessed. She has received 500 mL bolus of crystalloid. Heart rate has improved but still tachycardic. Will give additional 500 mL bolus to hopefully improve urine output. Given purulence of urine and workup at this point, I think it is prudent to start antibiotic coverage. I will treat with ceftriaxone 2 g. Meningitis still remains on differential and should be considered if urinalysis unrevealing. LP would be difficult at this point given tremor and inability to follow command. Remains febrile. Will give acetaminophen IV. 11:45 -- Spoke with Dr. Nicole- we discussed presentation, ED course, and critical condition. He will admit patient to ICU. Care transitioned to Dr. Nicole. -- CT head to assess for hemorrhage given fever, altered mentation and hypertention - interpreted by radiology, negative. HPI General Mode of arrival: EMS . Date/Time Provider Initiated Documentation: 03/08/18 09:50 . Limitations to Documentation: altered mental status (patient unable to provide history) . Information obtained by: RN/MD and old records reviewed . HPI Narrative: 52-year-old female with multiple medical problems including Parkinson's disease, recurrent aspiration, now status post PEG tube placement, here after being sent over from nursing rehab facility with altered mental status and fever. History is limited as patient is nonverbal at this time. Patient was seen here in the emergency department yesterday for possible hypoxia. There was concern for possible pneumonia but chest x-ray was unremarkable. Patient was saturating well here in the emergency department and without complaint. She was discharged back to nursing facility after significant nondiagnostic workup. skilled nursing physician called noting that patient condition has worsened overnight and that she now seems much more confused and has fever. She is concerned about potential for an aspiration pneumonia. Related Data Home Medications Medication Instructions Recorded Confirmed baclofen 10 mg FEEDING TUBE HS prn #30 07/25/16 03/08/18 tab-cap amantadine HCl 200 mg FEEDING TUBE BID 08/15/16 03/08/18 acetaminophen [Tylenol] 650 mg FEEDING TUBE Q4H PRN PRN 11/15/16 03/08/18 tab-cap fluoxetine 20 mg PO DAILY tab-cap 11/15/16 03/08/18 polyethylene glycol 3350 17 gm FEEDING TUBE DAILY PRN 08/15/17 03/08/18 carbidopa-levodopa [Rytary] 1 ea TID 08/30/17 03/08/18 propranolol 40 mg FEEDING TUBE DAILY 12/25/17 03/08/18 bisacodyl 1 supp UT PRN PRN 01/04/18 03/08/18 calcium carbonate 1 tab FEEDING TUBE .Q6H, PRN PRN 01/04/18 03/08/18 docusate sodium 100 mg BID PRN 01/04/18 03/08/18 magnesium hydroxide [Milk of 30 mg PO HS PRN 01/04/18 03/08/18 Magnesia] melatonin 3 mg FEEDING TUBE HS PRN 01/04/18 03/08/18 sodium phosphates [Fleet Enema] 1 btl UT PRN PRN 01/04/18 03/08/18 ondansetron HCl [Zofran] 4 mg FEEDING TUBE Q6H PRN PRN 02/06/18 03/08/18 omeprazole 20 mg FEEDING TUBE DAILY 02/22/18 03/08/18 ropinirole [Requip] 0.25 mg FEEDING TUBE TID 03/07/18 03/08/18 acetaminophen 650 mg UT Q4H PRN PRN 03/08/18 03/08/18 bisacodyl [Dulcolax (bisacodyl)] 1 supp UT PRN PRN 03/08/18 03/08/18 lactose-reduced food with fibr 1 FEEDING TUBE TID 03/08/18 [Jevity 1.2 Kamlesh] lorazepam 0.25 mg FEEDING TUBE ONCE 03/08/18 03/08/18 naproxen sodium 440 mg FEEDING TUBE BID 03/08/18 03/08/18 Allergies Allergy/AdvReac Type Severity Reaction Status Date / Time environmental Allergy Uncoded 02/06/18 10:04 General Stated Complaint: Fever SHAWN: 2 Review of Systems Review of Systems Unobtainable due to mental condition [facility] Family History Mother AMI (acute myocardial infarction) Father AMI (acute myocardial infarction) Medical History 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) Ambulatory dysfunction (Chronic) Recurrent aspiration events (Chronic) Failure to thrive (Chronic) PEG (percutaneous endoscopic gastrostomy) adjustment/replacement/removal ( Chronic) Seizure (Resolved) NMS (neuroleptic malignant syndrome) (Resolved) Abnormal EKG (Resolved) Hyperlipidemia type III (Chronic) Anemia (Chronic) History of DIC syndrome (Resolved) Toxic metabolic encephalopathy (Resolved) UTI (urinary tract infection) (Resolved) Dysphagia (Chronic) Encephalopathy acute (Resolved) Fall (Chronic) Acute respiratory failure with hypoxia (Resolved) Pneumonia (Resolved) Anemia (Chronic) Acute kidney injury (Resolved) Parkinsons disease (Chronic) Secondary rhabdomyolysis (Resolved) Non-ST elevation NE (NSTEMI) (Resolved) Essential hypertension (Chronic) Hyperlipidemia (Chronic) Obesity (Chronic) Osteoarthritis (Chronic) Parkinson's disease (Chronic) Social History lives independently: No number of children: 2 number of grandchildren: 1 Smoking/Tobacco Use Status: Never alcohol intake: never substance use type: does not use Surgical History History of vaginal hysterectomy (Resolved) Exam Const General: ill appearing Orientation: alert and confused HENLA Head: normocephalic and atraumatic Mouth: moist mucous membranes Eyes Conjunctivae: normal conjunctivae Sclera: normal sclerae Neck Neck: trachea midline and supple Resp Auscultation: clear to auscultation bilaterally, no rales, no rhonchi and no wheezes Cardio Jugular venous pressure: no JVD Rate: regular rate and not tachycardic Rhythm: regular rhythm GI Palpation: soft, not firm, no guarding, no masses, not rigid and nontender Skin General skin exam: no rashes or lesions noted Neuro General: obtunded Cranial Nerves: PERRL Cognition: abnormal cognition Other: patient unresponsive to verbal stimuli Extrem General: no edema Psych Speech and Movement: other (unresponsive, not following commands) Course Vital Signs Temperature 38.4 C H 03/08/18 09:44 Pulse 123 H 03/08/18 09:44 Respiratory Rate 18 03/08/18 09:44 Blood Pressure 154/112 H 03/08/18 09:44 Pulse Oximetry 95 03/08/18 09:44 Temperature 38.4 C H 03/08/18 09:44 Temperature Source Temporal Artery Scan 03/08/18 09:44 Pulse 123 H 03/08/18 09:44 Respiratory Rate 18 03/08/18 09:44 Blood Pressure 154/112 H 03/08/18 09:44 Blood Pressure Position Supine 03/08/18 09:44 Pulse Oximetry 95 03/08/18 09:44 Oxygen Delivery Method Room Air 03/08/18 09:44 Oxygen Flow Rate 0 03/08/18 09:44 Lab/Test Results Lab/Test Results: 03/08/18 09:50 Blood Blood Culture - Pending 03/08/18 09:50 Blood Blood Culture - Pending Laboratory Tests Range/Units 03/08/18 09:50 Lactate (0.6-1.4) mmol/L 1.3
[2018-03-08] MEDS: Lactated Ringers 500 ML IV (11:10)
[2018-03-08] MEDS: Lactated Ringers 500 ML 1000 ML IV (11:43)
[2018-03-08] MEDS: ACETAMINOPHEN 1,000 MG/100 ML BTL 400 MG IVPB (11:54)
--- NOTE | 2018-03-08 12:25 | DI.CT_ITS ---
SYMPTOMS/DIAGNOSIS: ALTERED, FEVER, HTN CRANIAL CT: Image degradation by patient motion is noted. There is moderate cortical atrophy. There is no evidence of a hemorrhage or mass. Ventricular dilatation is unchanged when compared with prior images. 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 There is no skull fracture. No evidence of sinusitis or a mastoid effusion. SUMMARY: No interval change. No acute abnormality. No evidence of an acute intracranial abnormality.
[2018-03-08] MEDS: Enoxaparin 40 MG/0.4 ML SYR SC (13:59)
[2018-03-08] MEDS: rOPINIRole 0.5 MG TAB 0.25 MG NG ×2 (13:59→21:26)
[2018-03-08 14:10] LABS: Bilirubin Negative (Negative); Blood Negative (Negative); Clarity Clear; Glucose Negative (Negative); Ketones Negative (Negative); Leukocyte Esterase Negative (Negative); Nitrite Negative (Negative); Urobilinogen 0.2 EU/dL (Up TO 0.2); pH 6.5 (5-8)
[2018-03-08 14:23] LABS: Bacteria Few HPF (Negative); C & S Indicated? Yes; Casts Negative LPF (Negative); Crystals Rare Calcium Oxalate HPF (Negative); Epithelial Cells Few HPF (Negative); Mucus Negative (Negative); Other Cells Moderate Yeast (Negative); RBC 0-2 (0-2); WBC 20-50 HPF (0-5)
--- NOTE | 2018-03-08 14:39 | SATEXT_ITS ---
Assessment: [facility] Per RN there, she was getting Jevity 1.2 tricia @ 78 ml per hour x 20 hours per day. She was getting her free water by mouth. She is 63.5 and 52.9 kg. She was 49 kg on discharge here two weeks ago. She has has a 7.8% weight gain which is significant. Her feeding provides 1872 kcal/day which is 35 kcal/kg which is anabolic. It provides 86 grams of protein which is 1.6g/kg. It also provides 1150 ml of free water. She likely requires an additional 800-1000 ml of free water daily. This feeding provides 100% of her estimated micronutrient needs. Nutritional Diagnosis: Inability to take oral foods and fluids. Planned significant weight gain related to anabolic load of calories and protein per PEG tube. Intervention: Would continue with tube feeding regimen as she had been getting at [facility] as follows: Jevity 1.2 tricia @ 78 ml/hr x 20 hours per day or an equivalent volume. She is currently ordered for NPO so her free water will have to go per her PEG. Monitoring and Evaluation: 1. Will monitor weight, feeding regimen 2. Will evaluate nutrition care plan on going and adjust accordingly.
--- NOTE | 2018-03-08 15:20 | W.PM.HP.N ---
Date of service: 03/08/18 Time of Service: 15:48 Assessment and Plan (1) Sepsis syndrome: Current visit: No Status: Acute Diagnosis of Sepsis based on elevated temperature, tachypnea, tachycardia, and altered mental status. Potential urinary source, but although urinalysis shows evidence of pyuria, Leukocyte Esterase and Nitrites are negative. CXR negative today as well as yesterday, and no obvious signs of skin infection. Urine, Sputum, and Blood Cultures from prior hospitalizations reviewed. Monitor Blood and Urine Cultures. Patient started on broad spectrum antibiotics for potential urinary source with critical illness - currently on Vancomycin and Meropenem. Continue aggressive IVF resuscitation as well. Monitor closely - will benefit from ICU level care. (2) Parkinsons disease: Current visit: No Status: Chronic Continue home antiparkinsonian medications. (3) Failure to thrive: Current visit: No Status: Chronic S/p PEG Tube placement in January of this year. Maintained on Tube Feeds. (4) Dysphagia: Current visit: No Status: Chronic Underwent successful PEG tube placement 01/2018. Continue TF's. Patient was initially cleared for oral intake by speech, but due to repeated aspiration events is now maintained on NPO status. (5) Anemia: Current visit: No Status: Chronic Anemia of chronic disease, with low iron/TIBC and elevated Ferritin. B12 and FA normal as previously checked. TSH mildly low but checked during acute illness previously - FT4 checked and normal. Current Hgb higher than last checked but in setting of dehydration. Monitor. (6) DVT prophylaxis: Current visit: No Status: Acute SC Lovenox. (7) Discharge planning issues: Current visit: No Status: Acute Full Code. 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 Ms. So has had multiple recent admissions. She was admitted in September after an aspiration event that needed intubation. In December she was admitted here and then transferred to a [facility] for sepsis and bacteremia, DIC, JOSEPH, Rhabdomyolysis, Neuroleptic Malignant Syndrome with concurrent seizure activity, and NSTEMI in the setting of demand. In January she was admitted for an elective PEG Tube placement due to failure to thrive, and underwent a rather lengthy hospital course with an acute hypoxic respiratory failure and brief cardiac arrest secondary to an inadvertant intubation of the right maintstem bronchus, UTI, abnormal ECG requiring nuclear stress testing which was ultimately interpreted as negative for ischemia, and eventual successful initiation of Tube Feeds. She was also cleared for a modified diet by Speech therapy at that time. However, earlier this month she had another witnessed episode of aspiration that required hospitalization, and treatment for likely pneumonia. The patient was discharged back to [facility] following her last hospitalization, but presented to the ED last night with reported hypoxia. However, work-up in the emergency department without any significant abnormality, and sats were actually appropriate when checked by ear probe - patient with significant tremor from underlying PD with finger probe showing poor yield. Work-up was fairly benign, including labs and CXR, and the patient's hypoxia was thought likely secondary to erroneous read. She was transitioned back to the nursing facility. However, she presents back to the ED today with reported change in mental status and fever. Patient was noted to be febrile in the emergency department, with rigors and a change in mental status. Work-up in the emergency room included an unremarkable CXR, lack of leukocytosis, and normal lactate and renal function. She appears dehydrated clinically and by labs. Note was made by the ED attending of pyuria with attempted marks cath, and urinalysis shows 20-50 WBCs per HPF, but with negative Leukocyte Esterase and Nitrite. Blood and Urine Cultures are sent and pending. Given Patient's elevated temperature, RR, HR, and altered mental status she was admitted for further evaluation with a presumptive diagnosis of Sepsis. Review of Systems Review of Systems General: Patient appears ucomfortable, acutely ill. Skin: No obvious lesions, erythema, or cellulitic changes on UE's, LE's, abdomen, chest, and on limited back exam. Neck: Unable to assess due to chronic rigidity from underlying PD CV: Regular, tachycardic, S1S2, No overt rubs, murmurs, or gallops. Pulmonary: Clear to auscultation bilaterally, no crackles, wheezing, or rhonchi on limited anterior and lateral exam Abdomen: + Bowel Sounds, soft, nontender, nondistended Vascular: No lower extremity edema : Marks in place. Neurologic: Severe tremors noted. Psych: Unable to assess. 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) Ambulatory dysfunction (Chronic) Recurrent aspiration events (Chronic) Failure to thrive (Chronic) PEG (percutaneous endoscopic gastrostomy) adjustment/replacement/removal (Chronic) Seizure (Resolved) NMS (neuroleptic malignant syndrome) (Resolved) Abnormal EKG (Resolved) Hyperlipidemia type III (Chronic) Anemia (Chronic) History of DIC syndrome (Resolved) Toxic metabolic encephalopathy (Resolved) UTI (urinary tract infection) (Resolved) Dysphagia (Chronic) Encephalopathy acute (Resolved) Fall (Chronic) Acute respiratory failure with hypoxia (Resolved) Pneumonia (Resolved) Anemia (Chronic) Acute kidney injury (Resolved) Parkinsons disease (Chronic) Secondary rhabdomyolysis (Resolved) Non-ST elevation NE (NSTEMI) (Resolved) Essential hypertension (Chronic) Hyperlipidemia (Chronic) Obesity (Chronic) Osteoarthritis (Chronic) Parkinson's disease (Chronic) Social History lives independently: No number of children: 2 number of grandchildren: 1 Smoking/Tobacco Use Status: Never alcohol intake: never substance use type: does not use Surgical History History of vaginal hysterectomy (Resolved) Meds Home Medications Medication Instructions Recorded Confirmed Type baclofen 10 mg FEEDING TUBE HS prn #30 07/25/16 03/08/18 History tab-cap amantadine HCl 200 mg FEEDING TUBE BID 08/15/16 03/08/18 History acetaminophen [Tylenol] 650 mg FEEDING TUBE Q4H PRN PRN 11/15/16 03/08/18 History tab-cap fluoxetine 20 mg PO DAILY tab-cap 11/15/16 03/08/18 History polyethylene glycol 3350 17 gm FEEDING TUBE DAILY PRN 08/15/17 03/08/18 History carbidopa-levodopa [Rytary] 1 ea TID 08/30/17 03/08/18 History propranolol 40 mg FEEDING TUBE DAILY 12/25/17 03/08/18 History bisacodyl 1 supp SD PRN PRN 01/04/18 03/08/18 History calcium carbonate 1 tab FEEDING TUBE .Q6H, PRN PRN 01/04/18 03/08/18 History docusate sodium 100 mg BID PRN 01/04/18 03/08/18 History magnesium hydroxide [Milk of 30 mg PO HS PRN 01/04/18 03/08/18 History Magnesia] melatonin 3 mg FEEDING TUBE HS PRN 01/04/18 03/08/18 History sodium phosphates [Fleet Enema] 1 btl SD PRN PRN 01/04/18 03/08/18 History ondansetron HCl [Zofran] 4 mg FEEDING TUBE Q6H PRN PRN 02/06/18 03/08/18 History omeprazole 20 mg FEEDING TUBE DAILY 02/22/18 03/08/18 History ropinirole [Requip] 0.25 mg FEEDING TUBE TID 03/07/18 03/08/18 History acetaminophen 650 mg SD Q4H PRN PRN 03/08/18 03/08/18 History bisacodyl [Dulcolax (bisacodyl)] 1 supp SD PRN PRN 03/08/18 03/08/18 History lactose-reduced food with fibr 1 FEEDING TUBE TID 03/08/18 History [Jevity 1.2 Kamlesh] lorazepam 0.25 mg FEEDING TUBE ONCE 03/08/18 03/08/18 History naproxen sodium 440 mg FEEDING TUBE BID 03/08/18 03/08/18 History Allergies Allergy/AdvReac Type Severity Reaction Status Date / Time environmental Allergy Uncoded 02/06/18 10:04 Results Imaging Chest x-ray: report reviewed and image reviewed Additional studies: Exam(s) a RAD:XR chest 2V PA & lateral SYMPTOM/DIAGNOSIS: FEVER AP AND LATERAL CHEST: The heart is normal in size. The lungs are clear. The mediastinal structures and pleura appear intact. CONCLUSION: Normal chest. Exam(s) a CT:CT head wo SYMPTOMS/DIAGNOSIS: ALTERED, FEVER, HTN CRANIAL CT: Image degradation by patient motion is noted. There is moderate cortical atrophy. There is no evidence of a hemorrhage or mass. Ventricular dilatation is unchanged when compared with prior images. 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 There is no skull fracture. No evidence of sinusitis or a mastoid effusion. SUMMARY: No interval change. No acute abnormality. No evidence of an acute intracranial abnormality. Labs : 03/08/18 09:50 03/08/18 09:50 Laboratory Results - last 24 hr 03/08/18 03/08/18 03/08/18 09:50 09:50 09:50 WBC 8.38 RBC 3.30 L Hgb 10.4 L Hct 32.2 L MCV 97.6 H MCH 31.5 MCHC 32.3 RDW 15.5 H Plt Count 307 MPV 11.1 H Abs Immat Gran (auto) Immature Gran % 0.2 Neutrophils % 90.9 Lymphocytes % 6.2 Monocytes % 2.3 Eosinophils % 0.0 Basophils % 0.4 Absolute Neutrophils 7.62 H Band Neutrophils Absolute Lymphocytes 0.52 L Absolute Monocytes 0.19 Absolute Eosinophils 0.00 Absolute Basophils 0.03 Metamyelocytes Myelocytes Promyelocytes Nucleated RBCs Differential Comment Atypical Lymphocytes Other Cell Type RBC Morphology Polychromasia Hypochromasia Poikilocytosis Basophilic Stippling Anisocytosis Microcytosis Macrocytosis Spherocytes Target Cells Tear Drop Cells Ovalocytes Stomatocytes [place] Bodies Maurice Cells Acanthocytes (Spur) Schistocytes Sodium 147 H Potassium 4.2 Chloride 107 Carbon Dioxide 28.8 Anion Gap 11.2 H BUN 40 H D Creatinine 0.87 Estimated GFR/1.73 m2 >= 60.00 Glucose 175 H D Lactate 1.3 Calcium 9.8 Magnesium 1.9 Total Bilirubin 0.5 Conjugated Bilirubin 0.20 AST 20 ALT 28 Alkaline Phosphatase 114 Troponin I < 0.02 NT-Pro-B Natriuret Pep Total Protein 7.8 Albumin 3.6 Urine Color Urine Clarity Urine pH Ur Specific [place] Urine Protein Urine Ketones Urine Blood Urine Nitrite Urine Bilirubin Urine Urobilinogen Ur Leukocyte Esterase Urine RBC Urine WBC Ur Epithelial Cells Urine Crystals Urine Bacteria Urine Casts Urine Mucus Urine Other Ur Culture Indicated? Urine Glucose Patient ABO/Rh 03/08/18 03/08/18 03/08/18 12:31 12:31 12:34 WBC RBC Hgb Hct MCV MCH MCHC RDW Plt Count MPV Abs Immat Gran (auto) Immature Gran % Neutrophils % Lymphocytes % Monocytes % Eosinophils % Basophils % Absolute Neutrophils Band Neutrophils Absolute Lymphocytes Absolute Monocytes Absolute Eosinophils Absolute Basophils Metamyelocytes Myelocytes Promyelocytes Nucleated RBCs Differential Comment Atypical Lymphocytes Other Cell Type RBC Morphology Polychromasia Hypochromasia Poikilocytosis Basophilic Stippling Anisocytosis Microcytosis Macrocytosis Spherocytes Target Cells Tear Drop Cells Ovalocytes Stomatocytes [place] Bodies [place] Cells Acanthocytes (Spur) Schistocytes Sodium Cancelled Potassium Cancelled Chloride Cancelled Carbon Dioxide Cancelled Anion Gap Cancelled BUN Cancelled Creatinine Cancelled Estimated GFR/1.73 m2 Cancelled Glucose Cancelled Lactate Calcium Cancelled Magnesium Total Bilirubin Cancelled Conjugated Bilirubin AST Cancelled ALT Cancelled Alkaline Phosphatase Cancelled Troponin I Cancelled NT-Pro-B Natriuret Pep Cancelled Total Protein Cancelled Albumin Cancelled Urine Color Urine Clarity Urine pH Ur Specific [place] Urine Protein Urine Ketones Urine Blood Urine Nitrite Urine Bilirubin Urine Urobilinogen Ur Leukocyte Esterase Urine RBC Urine WBC Ur Epithelial Cells Urine Crystals Urine Bacteria Urine Casts Urine Mucus Urine Other Ur Culture Indicated? Urine Glucose Patient ABO/Rh Cancelled 03/08/18 03/08/18 12:34 13:30 WBC Cancelled RBC Cancelled Hgb Cancelled Hct Cancelled MCV Cancelled MCH Cancelled MCHC Cancelled RDW Cancelled Plt Count Cancelled MPV Cancelled Abs Immat Gran (auto) Cancelled Immature Gran % Cancelled Neutrophils % Cancelled Lymphocytes % Cancelled Monocytes % Cancelled Eosinophils % Cancelled Basophils % Cancelled Absolute Neutrophils Cancelled Band Neutrophils Cancelled Absolute Lymphocytes Cancelled Absolute Monocytes Cancelled Absolute Eosinophils Cancelled Absolute Basophils Cancelled Metamyelocytes Cancelled Myelocytes Cancelled Promyelocytes Cancelled Nucleated RBCs Cancelled Differential Comment Cancelled Atypical Lymphocytes Cancelled Other Cell Type Cancelled RBC Morphology Cancelled Polychromasia Cancelled Hypochromasia Cancelled Poikilocytosis Cancelled Basophilic Stippling Cancelled Anisocytosis Cancelled Microcytosis Cancelled Macrocytosis Cancelled Spherocytes Cancelled Target Cells Cancelled Tear Drop Cells Cancelled Ovalocytes Cancelled Stomatocytes Cancelled [place] Bodies Cancelled Raegan Cells Cancelled Acanthocytes (Spur) Cancelled Schistocytes Cancelled Sodium Potassium Chloride Carbon Dioxide Anion Gap BUN Creatinine Estimated GFR/1.73 m2 Glucose Lactate Calcium Magnesium Total Bilirubin Conjugated Bilirubin AST ALT Alkaline Phosphatase Troponin I NT-Pro-B Natriuret Pep Total Protein Albumin Urine Color Yellow Urine Clarity Clear Urine pH 6.5 Ur Specific [place] 1.020 Urine Protein 30 H Urine Ketones Negative Urine Blood Negative Urine Nitrite Negative Urine Bilirubin Negative Urine Urobilinogen 0.2 Ur Leukocyte Esterase Negative Urine RBC 0-2 Urine WBC 20-50 Ur Epithelial Cells Few Urine Crystals Rare calcium oxalate Urine Bacteria Few Urine Casts Negative Urine Mucus Negative Urine Other Moderate yeast Ur Culture Indicated? Yes Urine Glucose Negative Patient ABO/Rh Last Vital Signs Temp 38.1 C H 03/08/18 14:17 Pulse 106 H 03/08/18 14:17 Resp 21 03/08/18 14:17 BP 106/74 03/08/18 14:17 Pulse Ox 90 L 03/08/18 14:17
--- NOTE | 2018-03-08 16:33 | CHAPLAIN ---
Jaylyn was in bed, shaking some, when I visited. Her brother Carlos Alberto was with her and very attentive. He believes that Jaylyn knows his voice so he continued to speak with her. He shared some personal history about Jaylyn and their family. There are two older brothers, one is driving up today, according to Carlos Alberto. Jaylyn has two children, an 30 eyear old, who has been incarcerated, and a 13 year old who is in state custody, according to Carlos Alberto. I gave Jaylyn a prayer shawl and offered support.
[2018-03-08] MEDS: VANCOMYCIN 1,250 MG in Normal Saline 250 ML 166.667 MG IVPB (16:57)
[2018-03-08] MEDS: MEROPENEM 1 GM in Normal Saline 100 ML IVPB ×2 (17:26→23:55)
[2018-03-08 17:42] LABS: Creatine Kinase 25 U/L (26-192)
[2018-03-08] MEDS: Normal Saline 1,000 ML 250 ML IV (20:00)
[2018-03-08] MEDS: ACETAMINOPHEN 1,000 MG/100 ML BTL 400 MG (21:06)
[2018-03-08] MEDS: CARBIDOPA LEVODOPA 1 EACH PEG (21:26)
[2018-03-09] VITALS (118 sets, daily range): BP systolic 104–185; BP diastolic 64–127; PULSE 61–159; RESP 13–50; TEMP 36.4–38.4; O2SAT 87–99
[2018-03-09] MEDS: VANCOMYCIN 750 MG in Normal Saline 250 ML 166.667 MG IVPB (00:29)
[2018-03-09] MEDS: Normal Saline 1,000 ML 250 ML IV (00:30)
[2018-03-09] MEDS: Normal Saline Flush 10 ML SYR IVP (03:00)
[2018-03-09 07:21] LABS: HCT 28.4 % (36.0-46.0); HGB 8.5 g/dL (12.0-15.5); Mean Corp. HGB Concentration 29.9 g/dL (32.0-36.0); Mean Corpuscular Hemoglobin 30.1 pg (27.0-33.0); Mean Corpuscular Volume 100.7 fL (80-95); Mean Platelet Volume 11.4 fL (8.0-11.0); Platelet Count 213 x1000/uL (130-400); RBC 2.82 m/cumm (4.00-5.20); RBC Distribution Width 15.3 % (11.7-14.6); White Blood Cell Count 7.06 k/cumm (4.4-10.8)
[2018-03-09 07:26] LABS: Anion Gap 9.1 mmol/L (3-11); BUN 28 mg/dL (7-18); CO2 27.9 mmol/L (21.0-32.0); CREATININE 0.75 mg/dL (0.55-1.02); Calcium 8.8 mg/dL (8.5-10.1); Chloride 115 mmol/L (98-107); Glucose 117 mg/dL (70-100); Potassium 3.8 mmol/L (3.5-5.1); Sodium 152 mmol/L (136-145)
[2018-03-09] MEDS: SODIUM CHLORIDE 0.45% 1,000 ML 150 ML IV ×2 (08:28→19:03)
[2018-03-09] MEDS: MEROPENEM 1 GM in Normal Saline 100 ML IVPB ×2 (09:31→16:29)
[2018-03-09] MEDS: Propranolol 40 MG TAB NG (09:32)
[2018-03-09] MEDS: FLUoxetine 20 MG CAP PO (09:32)
[2018-03-09] MEDS: rOPINIRole 0.5 MG TAB 0.25 MG NG ×3 (09:32→20:39)
[2018-03-09] MEDS: Omeprazole 20 MG CAPCR NG (09:32)
[2018-03-09] MEDS: VANCOMYCIN 750 MG in Normal Saline 250 ML 167 MG IVPB (10:12)
[2018-03-09] MEDS: CARBIDOPA LEVODOPA 1 EACH PEG ×2 (13:49→20:40)
[2018-03-09] MEDS: Enoxaparin 40 MG/0.4 ML SYR SC (13:52)
--- NOTE | 2018-03-09 14:12 | PDOC.CMIN ---
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 Ambulatory dysfunction (Chronic). Recurrent aspiration events (Chronic). Failure to thrive (Chronic). PEG (percutaneous endoscopic gastrostomy) adjustment/replacement/removal (Chronic). Seizure (Resolved). NMS (neuroleptic malignant syndrome) (Resolved). Abnormal EKG (Resolved). Hyperlipidemia type III (Chronic). Anemia (Chronic). History of DIC syndrome (Resolved). Toxic metabolic encephalopathy (Resolved). UTI (urinary tract infection) (Resolved). Dysphagia (Chronic). Encephalopathy acute (Resolved). Fall (Chronic). Acute respiratory failure with hypoxia (Resolved). Pneumonia (Resolved). Anemia (Chronic). Acute kidney injury (Resolved). Parkinsons disease (Chronic). Secondary rhabdomyolysis (Resolved). Non-ST elevation [place] (NSTEMI) (Resolved). Essential hypertension (Chronic). Hyperlipidemia (Chronic). Obesity (Chronic). Osteoarthritis (Chronic). Parkinson's disease (Chronic). History of vaginal hysterectomy (Resolved) PREVIOUS FUNCTIONAL STATUS/SOCIAL/FAMILY SUPPORTS:: Jaylyn is a resident at [facility]. She is alert and oriented at baseline. She has been w/c bound and a breanne lift at [facility]. CURRENT FUNCTIONAL STATUS:: Lying in bed this morning. ADVANCE DIRECTIVES:: COLST on file Has patient been provided with information about the portal?: No Did the patient sign up for the portal?: No CODE STATUS:: Full Code INSURANCE COVERAGE / FINANCIAL ISSUES:: Medicare, Medicaid CURRENT HOME/COMMUNITY SERVICES/EQUIPMENT:: Currently Jaylyn receives all services and equipment needs through [facility] PRIMARY CARE PHYSICIAN:: Barbara Almaguer POTENTIAL DISCHARGE NEEDS:: Return to [facility] via w/c van vs. ambulance PATIENT/FAMILY EDUCATION NEEDS:: Review DC instructions, any limitations, and ongoing DC planning discussion. DIscuss Ask Me Three ANTICIPATED BARRIERS TO DISCHARGE:: None identified at this time. TRANSPORTATION:: Via [facility] w/c van vs. ambulance PLAN:: Will return to [facility] once medically cleared. She will transport via w/c van vs. EMS Readmission - Within the Past 30 Days Yes or No: Y - Date of First Admission Date of 1st Admission: 02/22/18 - Date of this Admission Date of Admission: 03/08/18 This admission was: Through ED - Assessment for Readmission Summary of readmission circumstances, based upon interviews: This is Jaylyn's second readmission this month. She was readmitted due to UTI this admission. Jaylyn continues as NPO at [facility] at this time as she is not safe to have food by mouth due to aspiration risk. Jaylyn is a penitentiary resident at [facility].
--- NOTE | 2018-03-09 14:24 | INITIAL_ITS ---
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 Ambulatory dysfunction (Chronic). Recurrent aspiration events (Chronic). Failure to thrive (Chronic). PEG (percutaneous endoscopic gastrostomy) adjustment/replacement/removal (Chronic). Seizure (Resolved). NMS ( neuroleptic malignant syndrome) (Resolved). Abnormal EKG (Resolved). Hyperlipidemia type III (Chronic). Anemia (Chronic). History of DIC syndrome ( Resolved). Toxic metabolic encephalopathy (Resolved). UTI (urinary tract infection) (Resolved). Dysphagia (Chronic). Encephalopathy acute (Resolved). Fall (Chronic). Acute respiratory failure with hypoxia (Resolved). Pneumonia ( Resolved). Anemia (Chronic). Acute kidney injury (Resolved). Parkinsons disease (Chronic). Secondary rhabdomyolysis (Resolved). Non-ST elevation [place] ( NSTEMI) (Resolved). Essential hypertension (Chronic). Hyperlipidemia (Chronic) . Obesity (Chronic). Osteoarthritis (Chronic). Parkinson's disease (Chronic) . History of vaginal hysterectomy (Resolved) PREVIOUS FUNCTIONAL STATUS/SOCIAL/FAMILY SUPPORTS:: Jaylyn is a resident at [facility]. She is alert and oriented at baseline. She has been w/c bound and a breanne lift at [facility]. CURRENT FUNCTIONAL STATUS:: Lying in bed this morning. ADVANCE DIRECTIVES:: COLST on file Has patient been provided with information about the portal?: No Did the patient sign up for the portal?: No CODE STATUS:: Full Code INSURANCE COVERAGE / FINANCIAL ISSUES:: Medicare, Medicaid CURRENT HOME/COMMUNITY SERVICES/EQUIPMENT:: Currently Jaylyn receives all services and equipment needs through [facility] PRIMARY CARE PHYSICIAN:: Barbara Almaguer POTENTIAL DISCHARGE NEEDS:: Return to [facility] via w/c van vs. ambulance PATIENT/FAMILY EDUCATION NEEDS:: Review DC instructions, any limitations, and ongoing DC planning discussion. DIscuss Ask Me Three ANTICIPATED BARRIERS TO DISCHARGE:: None identified at this time. TRANSPORTATION:: Via [facility] w/c van vs. ambulance PLAN:: Will return to [facility] once medically cleared. She will transport via w/ c van vs. EMS Readmission - Within the Past 30 Days Yes or No: Y - Date of First Admission Date of 1st Admission: 02/22/18 - Date of this Admission Date of Admission: 03/08/18 This admission was: Through ED - Assessment for Readmission Summary of readmission circumstances, based upon interviews: This is Jaylyn's second readmission this month. She was readmitted due to UTI this admission. Jaylyn continues as NPO at [facility] at this time as she is not safe to have food by mouth due to aspiration risk. Jaylyn is a half-way resident at [facility].
--- NOTE | 2018-03-09 14:29 | PGE_ITS ---
Assessment and Plan (1) Sepsis syndrome: Current visit: No Status: Acute Diagnosis of Sepsis based on elevated temperature, tachypnea, tachycardia , and altered mental status. Initially thought to have a potential urinary source, but urinalysis while showing evidence of pyuria, was without Leukocyte Esterase and negative for Nitrites - Urine Culture also with only 10-50,000 mixed growth of gram positive valeriano. Blood Cultures negative X24H. CXR negative on day of admission as well as the day prior to that, patient is not hypoxic, and no obvious signs of skin infection. Urine, Sputum, and Blood Cultures from prior hospitalizations reviewed. Continue to monitor Blood and Urine Cultures. Patient started on broad spectrum antibiotics for potential urinary source with critical illness - currently on Vancomycin and Meropenem day #2. Continue IVF's for now as patient was dehydrated by labs and clinically. Monitor closely - will continue to benefit from ICU level care. (2) Parkinsons disease: Current visit: No Status: Chronic Continue home antiparkinsonian medications. (3) Failure to thrive: Current visit: No Status: Chronic S/p PEG Tube placement in January of this year. Maintained on Tube Feeds. Currently with a superficial contact wound adjacent to the PEG Tube from the device itself. Will consult wound and apply topical local care. (4) Dysphagia: Current visit: No Status: Chronic Underwent successful PEG tube placement 01/2018. Continue TF's. Patient was initially cleared for oral intake by speech, but due to repeated aspiration events is now maintained on NPO status. (5) Anemia: Current visit: No Status: Chronic Anemia of chronic disease, with low iron/TIBC and elevated Ferritin. B12 and FA normal as previously checked. TSH mildly low but checked during acute illness previously - FT4 checked and normal. Current Hgb higher than last checked but in setting of dehydration. Monitor. (6) DVT prophylaxis: Current visit: No Status: Acute SC Lovenox. (7) Discharge planning issues: Current visit: No Status: Acute Full Code. 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 Ms. So has had multiple recent admissions. She was admitted in September after an aspiration event that needed intubation. In December she was admitted here and then transferred to a [facility] for sepsis and bacteremia, DIC, JOSEPH, Rhabdomyolysis, Neuroleptic Malignant Syndrome with concurrent seizure activity , and NSTEMI in the setting of demand. In January she was admitted for an elective PEG Tube placement due to failure to thrive, and underwent a rather lengthy hospital course with an acute hypoxic respiratory failure and brief cardiac arrest secondary to an inadvertant intubation of the right maintstem bronchus, UTI, abnormal ECG requiring nuclear stress testing which was ultimately interpreted as negative for ischemia, and eventual successful initiation of Tube Feeds. She was also cleared for a modified diet by Speech therapy at that time. However, earlier this month she had another witnessed episode of aspiration that required hospitalization, and treatment for likely pneumonia. The patient was discharged back to [facility] following her last hospitalization, but presented to the ED on the night prior to her admission with reported hypoxia. However, work-up in the emergency department was without any significant abnormality, and sats were actually appropriate when checked by ear probe - patient with significant tremor from underlying PD with finger probe showing poor yield. Work-up was fairly benign, including labs and CXR, and the patient's hypoxia was thought likely secondary to an erroneous read. She was transitioned back to the nursing facility. However, she presents back to the ED yesterday with reported change in mental status and fever. Patient was noted to be febrile in the emergency department, with rigors and a change in mental status. Work-up in the emergency room included an unremarkable CXR, lack of leukocytosis, and normal lactate and renal function. She appeared dehydrated clinically and by labs. Note was made by the ED attending of pyuria with attempted marks cath, and urinalysis shows 20-50 WBCs per HPF, but with negative Leukocyte Esterase and Nitrite. Blood and Urine Cultures are thus far unrevealing. Given Patient's elevated temperature, RR, HR, and altered mental status she is under treatment for presumptive diagnosis of Sepsis. This morning Ms. So appears vastly improved. While her tremors are still significant her fever curve is trending down nicely, and she is verbal reporting feeling 'much better'. She was noted to be hypernatremic by labs this morning. No other events reported. Exam Narrative Exam Narrative: General: Patient appears uncomfortable but not toxic, with significant tremors, but improved. Awake, appears oriented and appropriate with questions. Skin: No obvious source of infection. Mild petechial rash on back, present and unchanged at time of admission. Small round area of skin breakdown and wound formation at PEG tube site from contact and pressure from the device. Not infected, without any erythema, warmth, drainage, or underlying induration or fluctuance. CV: Regular, nontachycardic, S1S2, No rubs, murmurs, or gallops. Pulmonary: Clear to auscultation bilaterally, no crackles, wheezing, or rhonchi on limited anterior and lateral exam. Abdomen: + Bowel Sounds, soft, nontender, nondistended Vascular: No lower extremity edema Neurologic: Significant tremors, worse than baseline. Objective Objective Clinical Data: Abnormal lab results 03/08/18 03/09/18 03/09/18 Range/Units 09:50 06:30 06:30 RBC 2.82 L (4.00-5.20) m/cumm Hgb 8.5 L (12.0-15.5) g/dL Hct 28.4 L (36.0-46.0) % MCV 100.7 H D (80-95) fL MCHC 29.9 L (32.0-36.0) g/dL RDW 15.3 H (11.7-14.6) % MPV 11.4 H (8.0-11.0) fL Sodium 152 H (136-145) mmol/L Chloride 115 H (98-107) mmol/L BUN 28 H D (7-18) mg/dL Glucose 117 H (70-100) mg/dL Creatine Kinase 25 L (26-192) U/L Vital Signs Temperature 37.6 C H 03/09/18 03:10 Temperature Source Temporal Artery Scan 03/09/18 03:10 Pulse 129 H 03/09/18 05:01 Pulse 102 H 03/09/18 05:01 Respiratory Rate 22 03/09/18 05:01 Respiratory Effort 03/09/18 03:10 Respiratory Depth Normal 03/09/18 03:10 Respiratory Pattern Tachypnea 03/08/18 16:00 Blood Pressure 140/81 03/09/18 05:01 Blood Pressure Mean 96 03/09/18 05:01 Blood Pressure Position Supine 03/08/18 20:00 Pulse Oximetry 95 03/09/18 05:01 Oxygen Delivery Method Room Air 03/09/18 03:10 Oxygen Flow Rate 0 03/09/18 03:10 Intake & Output 03/08/18 03/09/18 03/09/18 23:59 11:59 23:59 Intake Total 1500 / 1500 2480.000 / 2480.000 812.5 / 812.5 Output Total 550 / 550 750 / 750 Balance 950 / 950 1730.000 / 1730.000 812.5 / 812.5 Weight 52.9 kg 49.7 kg Intake: IV 1500 / 1500 2480.000 / 2480.000 812.5 / 812.5 Output: Urine 550 / 550 750 / 750 Other: Urine Color Yellow Yellow Urine Appearance Clear Clear Comment Marks in place. Marks in place. Laboratory Results WBC 7.06 k/cumm (4.4-10.8) 03/09/18 06:30 RBC 2.82 m/cumm (4.00-5.20) L 03/09/18 06:30 Hgb 8.5 g/dL (12.0-15.5) L 03/09/18 06:30 Hct 28.4 % (36.0-46.0) L 03/09/18 06:30 MCV 100.7 fL (80-95) H D 03/09/18 06:30 MCH 30.1 pg (27.0-33.0) 03/09/18 06:30 MCHC 29.9 g/dL (32.0-36.0) L 03/09/18 06:30 RDW 15.3 % (11.7-14.6) H 03/09/18 06:30 Plt Count 213 x1000/uL (130-400) 03/09/18 06:30 MPV 11.4 fL (8.0-11.0) H 03/09/18 06:30 Abs Immat Gran (auto) Cancelled 03/08/18 12:34 Immature Gran % 0.2 03/08/18 09:50 Neutrophils % 90.9 03/08/18 09:50 Lymphocytes % 6.2 03/08/18 09:50 Monocytes % 2.3 03/08/18 09:50 Eosinophils % 0.0 03/08/18 09:50 Basophils % 0.4 03/08/18 09:50 Absolute Neutrophils 7.62 k/cumm (1.2-6.7) H 03/08/18 09:50 Band Neutrophils Cancelled 03/08/18 12:34 Absolute Lymphocytes 0.52 k/cumm (1.2-3.4) L 03/08/18 09:50 Absolute Monocytes 0.19 k/cumm (0.11-0.7) 03/08/18 09:50 Absolute Eosinophils 0.00 k/cumm (0.0-0.7) 03/08/18 09:50 Absolute Basophils 0.03 k/cumm (0.0-0.2) 03/08/18 09:50 Metamyelocytes Cancelled 03/08/18 12:34 Myelocytes Cancelled 03/08/18 12:34 Promyelocytes Cancelled 03/08/18 12:34 Nucleated RBCs Cancelled 03/08/18 12:34 Differential Comment Cancelled 03/08/18 12:34 Atypical Lymphocytes Cancelled 03/08/18 12:34 Other Cell Type Cancelled 03/08/18 12:34 RBC Morphology Cancelled 03/08/18 12:34 Polychromasia Cancelled 03/08/18 12:34 Hypochromasia Cancelled 03/08/18 12:34 Poikilocytosis Cancelled 03/08/18 12:34 Basophilic Stippling Cancelled 03/08/18 12:34 Anisocytosis Cancelled 03/08/18 12:34 Microcytosis Cancelled 03/08/18 12:34 Macrocytosis Cancelled 03/08/18 12:34 Spherocytes Cancelled 03/08/18 12:34 Target Cells Cancelled 03/08/18 12:34 Tear Drop Cells Cancelled 03/08/18 12:34 Ovalocytes Cancelled 03/08/18 12:34 Stomatocytes Cancelled 03/08/18 12:34 Lopez-Kopperston Bodies Cancelled 03/08/18 12:34 Raegan Cells Cancelled 03/08/18 12:34 Acanthocytes (Spur) Cancelled 03/08/18 12:34 Schistocytes Cancelled 03/08/18 12:34 Sodium 152 mmol/L (136-145) H 03/09/18 06:30 Potassium 3.8 mmol/L (3.5-5.1) 03/09/18 06:30 Chloride 115 mmol/L (98-107) H 03/09/18 06:30 Carbon Dioxide 27.9 mmol/L (21.0-32.0) 03/09/18 06:30 Anion Gap 9.1 mmol/L (3-11) 03/09/18 06:30 BUN 28 mg/dL (7-18) H D 03/09/18 06:30 Creatinine 0.75 mg/dL (0.55-1.02) 03/09/18 06:30 Estimated GFR/1.73 m2 >= 60.00 (mL/min/1.73m2) 03/09/18 06:30 Glucose 117 mg/dL (70-100) H 03/09/18 06:30 Lactate 1.3 mmol/L (0.6-1.4) 03/08/18 09:50 Calcium 8.8 mg/dL (8.5-10.1) 03/09/18 06:30 Magnesium 1.9 mg/dL (1.8-2.4) 03/08/18 09:50 Total Bilirubin 0.5 mg/dL (0.2-1.0) 03/08/18 09:50 Conjugated Bilirubin 0.20 mg/dL (0.00-0.20) 03/08/18 09:50 AST 20 U/L (15-37) 03/08/18 09:50 ALT 28 U/L (12-78) 03/08/18 09:50 Alkaline Phosphatase 114 U/L (46-116) 03/08/18 09:50 Creatine Kinase 25 U/L (26-192) L 03/08/18 09:50 Troponin I < 0.02 ng/mL (0.00-0.06) 03/08/18 09:50 NT-Pro-B Natriuret Pep Cancelled 03/08/18 12:31 Total Protein 7.8 g/dL (6.4-8.2) 03/08/18 09:50 Albumin 3.6 g/dL (3.4-5.0) 03/08/18 09:50 Urine Color Yellow (Yellow) 03/08/18 13:30 Urine Clarity Clear 03/08/18 13:30 Urine pH 6.5 (5-8) 03/08/18 13:30 Ur Specific [place] 1.020 (1.005-1.025) 03/08/18 13:30 Urine Protein 30 mg/dL (Negative) H 03/08/18 13:30 Urine Ketones Negative mg/dL (Negative) 03/08/18 13:30 Urine Blood Negative (Negative) 03/08/18 13:30 Urine Nitrite Negative (Negative) 03/08/18 13:30 Urine Bilirubin Negative (Negative) 03/08/18 13:30 Urine Urobilinogen 0.2 EU/dL (Up TO 0.2) 03/08/18 13:30 Ur Leukocyte Esterase Negative (Negative) 03/08/18 13:30 Urine RBC 0-2 (0-2) 03/08/18 13:30 Urine WBC 20-50 HPF (0-5) 03/08/18 13:30 Ur Epithelial Cells Few HPF (Negative) 03/08/18 13:30 Urine Crystals Rare calcium oxalate HPF (Negative) 03/08/18 13:30 Urine Bacteria Few HPF (Negative) 03/08/18 13:30 Urine Casts Negative LPF (Negative) 03/08/18 13:30 Urine Mucus Negative (Negative) 03/08/18 13:30 Urine Other Moderate yeast (Negative) 03/08/18 13:30 Ur Culture Indicated? Yes 03/08/18 13:30 Urine Glucose Negative mg/dL (Negative) 03/08/18 13:30 Patient ABO/Rh Cancelled 03/08/18 12:31
[2018-03-09 15:21] LABS: Sodium 149 mmol/L (136-145)
[2018-03-09 15:28] LABS: Vancomycin, Trough 19.5 ug/mL (10.0-20.0)
--- NOTE | 2018-03-09 16:17 | PHARADMIT ---
Addendum entered by Kassie Ríos 03/13/18 15:29: Pharmacy Note Subjective pt still having diarrhea per morning report- discussion of changing free water or tube feeds to see if would help Objective VS-okay no labs Assessment zosyn was discontinued last night loperamide scheduled PRN Plan continue to watch VS, labs and for med changes return to [facility] when ready Original Note: Addendum entered by Kassie Ríos 03/11/18 12:32: Pharmacy Note Subjective looking better per morning report Objective VS-okay Na-146(same) K+3.1(down) Cl-108(down) mag-1.7 h/h-improved Assessment vanco and meropenem changed to zosyn yesterday mag and K+ replacement ordered Plan may got back to [facility] tomorrow if ready Original Note: Addendum entered by Kassie Ríos 03/10/18 13:21: Pharmacy Note Subjective looks much better per morning report, pt. thirsty (looking at amount of free water the pt is supposed to be getting). Objective BP-144/75 Na-146(down) Cl-115(down) SCr-0.52(down) h/h-8.6/26.8 Assessment no med changes, vanco and meropenem continue vanco trough scheduled for 1500 today current meds okay to be given via peg tube (even rytary- per micromedex and other resources) Plan adjust vanco dose if needed based on trough and renal function Original Note: Admission Pharmacy Clinical Review UTI ALL MEDS VIA PEG-TUBE, from [facility] Code Status Full Code Current Weight 49.7 kg Renally Cleared and Narrow Therapeutic Index Meds CrCl~63ml/min QTc Value / Action Taken BP Control, Fever BP 140/72 Tachy HR>100 Temp 38.4 Electrolytes reviewed Na++ high but down w/second draw today: 149 (IVF'S changed to 1/2 NS) K+ 3.8 Mag 1.8 DVT Prophylaxis Lovenox 40mg Opiate Usage / Scheduled Bowel Regimen Ordered Plt/SCr for Heparin / Enoxaparin Plt 213 SCr 0.75 INR for Warfarin H/H stable, WBC/Bands H/H down 8.5/28.4-chronic WBC 7.06 Antibiotic appropriateness Meropenem, Vanco....treating urosepsis or hx of aspiration events Vanco trough 19.5 today, but dose was given 2 hours late so trough would've been lower, ok to continue same dose of 750mg Q8h, will be due Sat 03/10 for repeat trough Cultures and Sensitivities Urine mixed: 10-50k blood: no growth MRSA nare: negative Surgical ABX d/c within 24 hr DM control / Insulin Dosing BG 117 Heart Failure (Check EF%) (MARJORIE's, B-Block, Diuretics) Propranolol IV to PO Switch Home Meds Reviewed Pt's own Rytary capsules.... Spoke w/RN @ [facility] and confirmed that they open all the capsules, attempt to dissolve and administer via PEG tube then flush, tablets are crushed that are able to Home Meds Not Ordered Comments Chest xray negative wound consult for irritated site under PEG tube, NPO status
--- NOTE | 2018-03-09 16:35 | CHAPLAIN ---
Jaylyn's eyes are open today and she is interacting more than yesterday. Her brother Carlos Alberto and his Jie visited today and are attentive to Jaylyn. Her other two brothers will be in to visit this weekend. They are nearly 20 years older than Jaylyn, but Carlos Alberto is closer in age to Jaylyn and seems to be very devoted to her.
--- NOTE | 2018-03-09 16:57 | NUR.NOTE ---
03/09/18 1445- in unit and at this time MD asked if he wanted the wound consult that he had spoken about previously this a.m. Told at this time that the wound has some thick, yellowish drainage noted . MD also questioned regarding the amount of time that the stitiches on the PEG disc should be in. MD stated he would be having a surgical consult to view the PEG tube site.Nursing Note:
[2018-03-09] MEDS: VANCOMYCIN 750 MG in Normal Saline 250 ML 166.66 MG IVPB (17:22)
[2018-03-09] MEDS: Bacitracin 1 PACKET TP (20:40)
[2018-03-10] VITALS (35 sets, daily range): BP systolic 102–170; BP diastolic 58–97; PULSE 67–185; RESP 12–32; TEMP 35.8–37; O2SAT 96–99
[2018-03-10] MEDS: MEROPENEM 1 GM in Normal Saline 100 ML IVPB ×2 (00:11→08:18)
[2018-03-10] MEDS: Normal Saline Flush 10 ML SYR IVP (00:18)
[2018-03-10] MEDS: VANCOMYCIN 750 MG in Normal Saline 250 ML 167 MG IVPB ×2 (00:38→08:24)
[2018-03-10] MEDS: SODIUM CHLORIDE 0.45% 1,000 ML 150 ML IV ×3 (04:16→19:25)
[2018-03-10] MEDS: rOPINIRole 0.5 MG TAB 0.25 MG NG ×3 (08:17→19:28)
[2018-03-10] MEDS: Bacitracin 1 PACKET TP ×2 (08:17→14:41)
[2018-03-10] MEDS: Omeprazole 20 MG CAPCR NG (08:17)
[2018-03-10] MEDS: Propranolol 40 MG TAB NG (08:17)
[2018-03-10] MEDS: FLUoxetine 20 MG CAP PO (08:18)
[2018-03-10 08:33] LABS: HCT 26.8 % (36.0-46.0); HGB 8.6 g/dL (12.0-15.5); Mean Corp. HGB Concentration 32.1 g/dL (32.0-36.0); Mean Corpuscular Hemoglobin 31.5 pg (27.0-33.0); Mean Corpuscular Volume 98.2 fL (80-95); Mean Platelet Volume 11.3 fL (8.0-11.0); Platelet Count 133 x1000/uL (130-400); RBC 2.73 m/cumm (4.00-5.20); RBC Distribution Width 14.8 % (11.7-14.6); White Blood Cell Count 6.73 k/cumm (4.4-10.8)
[2018-03-10 08:35] LABS: Anion Gap 10.2 mmol/L (3-11); BUN 28 mg/dL (7-18); CO2 24.8 mmol/L (21.0-32.0); CREATININE 0.52 mg/dL (0.55-1.02); Calcium 8.2 mg/dL (8.5-10.1); Chloride 111 mmol/L (98-107); Glucose 116 mg/dL (70-100); Potassium 3.7 mmol/L (3.5-5.1); Sodium 146 mmol/L (136-145)
[2018-03-10] MEDS: CARBIDOPA LEVODOPA 1 EACH PEG ×3 (08:40→19:29)
[2018-03-10] MEDS: Enoxaparin 40 MG/0.4 ML SYR SC (11:22)
--- NOTE | 2018-03-10 13:03 | PDOC.CMPRO ---
- If Service Date Differs Date of service: 03/10/18 Time of Service: 13:04 Care Management Progress Note S/O: Jaylyn is lying in bed in the ICU when CM visits this afternoon. She is engaged in conversation, makes good eye contact, and is quite talkative. Jaylyn denies pain and reports that has no concerns or questions regarding her plan of care. She continues to receive IV fluids and antibiotics and has a tube feed at 78 ml/hr with free water at 200ml/hr [id number]. A: 52 year old female admitted with Urinary Tract Infection. P: Jaylyn will return to [facility] when medically ready per MD. Anticipate patient will follow up with MD at [facility]. Jaylyn will transport via w/c van. CM will continue to offer support to patient and care team regarding discharge planning and disposition.
--- NOTE | 2018-03-10 13:35 | W.PM.PROGNOT ---
Assessment and Plan (1) Sepsis syndrome: Current visit: No Status: Acute Sepsis (elevated temperature, tachypnea, tachycardia, and altered mental status on presentation) resolved. Aspiration event is still the most likely etiology, though imaging for this remains negative. On vancomycin/meropenem day 3. Blood Cultures remain negative to date, urine with yeast and contaminated with Gram positive valeriano. -Will downgrade antibiotics to zosyn and monitor fever curve -patient may be moved out of the ICU - downgrading to medical surgical status (2) Parkinsons disease: Current visit: No Status: Chronic At baseline - Continue home antiparkinsonian medications through PEG. (3) Failure to thrive: Current visit: No Status: Chronic S/p PEG Tube placement in January of this year. Continue Jevity - increase free water. May have ice chips by mouth. (4) Dysphagia: Current visit: No Status: Chronic With repeated episodes of aspiration, now getting all PO via PEG (placed 01/2018). Ok to have ice chips, but otherwise NPO. (5) Anemia: Current visit: No Status: Chronic Anemia of chronic disease, with low iron/TIBC and elevated Ferritin. Continue to monitor H/H. (6) DVT prophylaxis: Current visit: No Status: Acute Continue SC Lovenox. (7) Discharge planning issues: Current visit: No Status: Acute Full Code. Will be returning to SNF upon discharge. She likely will not need IV antibiotics on discharge. Subjective Interval history since last seen: Ms So states she feels better today. She is a little dizzy if she tries to sit up. She was reporting being thirsty to nursing. She denies any chest pain or any pain, period. Denies any shortness of breath, nausea, vomiting. She has been afebrile. Exam Narrative Exam Narrative: General: Tremulous middle-aged female, laying comfortably in bed, speech interpretable Neurological: at her neurologic baseline - slightly tremulous, B foot drop Psychiatric: mildly anxious HEENT: EOMI, dry MM, no goiter or JVD Cardiovascular: RRR, no murmurs, rubs, or gallops Lungs: Clear/diminished breath sounds B Gastrointestinal: soft, nontender, nondistended; PEG tube in place Extremities: no edema, clubbing, or cyanosis of BLE's Objective Objective Clinical Data: Abnormal lab results 1003/09/18 03/10/18 Range/Units 13:30 15:08 06:35 RBC (4.00-5.20) m/cumm Hgb (12.0-15.5) g/dL Hct (36.0-46.0) % MCV (80-95) fL RDW (11.7-14.6) % MPV (8.0-11.0) fL Sodium 149 H 146 H (136-145) mmol/L Chloride 111 H (98-107) mmol/L BUN 28 H (7-18) mg/dL Creatinine 0.52 L (0.55-1.02) mg/dL Glucose 116 H (70-100) mg/dL Calcium 8.2 L (8.5-10.1) mg/dL Urine Protein 30 H (Negative) mg/dL 03/10/18 Range/Units 08:20 RBC 2.73 L (4.00-5.20) m/cumm Hgb 8.6 L (12.0-15.5) g/dL Hct 26.8 L (36.0-46.0) % MCV 98.2 H (80-95) fL RDW 14.8 H (11.7-14.6) % MPV 11.3 H (8.0-11.0) fL Sodium (136-145) mmol/L Chloride (98-107) mmol/L BUN (7-18) mg/dL Creatinine (0.55-1.02) mg/dL Glucose (70-100) mg/dL Calcium (8.5-10.1) mg/dL Urine Protein (Negative) mg/dL Vital Signs Temperature 36.1 C L 03/10/18 07:30 Temperature Source Tympanic 03/10/18 07:30 Pulse 70 03/10/18 12:11 Pulse 67 03/10/18 09:00 Respiratory Rate 14 03/10/18 09:00 Respiratory Effort Non-Labored 03/10/18 07:30 Respiratory Depth Normal 03/10/18 07:30 Respiratory Pattern Normal 03/10/18 07:30 Blood Pressure 144/75 H 03/10/18 12:11 Blood Pressure Mean 91 03/10/18 12:11 Blood Pressure Position Supine 03/10/18 07:30 Pulse Oximetry 98 03/10/18 09:00 Oxygen Delivery Method Room Air 03/10/18 07:30 Oxygen Flow Rate 0 03/10/18 07:30 Pain Level 0 03/10/18 07:30 Comment 03/09/18 13:00 Intake & Output 03/09/18 03/10/18 03/10/18 23:59 11:59 23:59 Intake Total 3047.0 / 3047.0 3145.5 / 3145.5 395 / 395 Output Total 1250 / 1250 745 / 745 Balance 1797.0 / 1797.0 2400.5 / 2400.5 395 / 395 Weight 51.3 kg Intake: IV 2150.0 / 2150.0 1632.5 / 1632.5 395 / 395 Intake, Tube Feeding Amount 897 / 897 1513 / 1513 Output: Urine 1250 / 1250 600 / 600 Output, Residual 0 / 0 145 / 145 Other: Urine Color Yellow Yellow Urine Appearance Clear Clear Comment Mccall in place and draining Mccall in place and draining Stool Size Small Stool Characteristics Soft Brown Laboratory Results WBC 6.73 k/cumm (4.4-10.8) 03/10/18 08:20 RBC 2.73 m/cumm (4.00-5.20) L 03/10/18 08:20 Hgb 8.6 g/dL (12.0-15.5) L 03/10/18 08:20 Hct 26.8 % (36.0-46.0) L 03/10/18 08:20 MCV 98.2 fL (80-95) H 03/10/18 08:20 MCH 31.5 pg (27.0-33.0) 03/10/18 08:20 MCHC 32.1 g/dL (32.0-36.0) 03/10/18 08:20 RDW 14.8 % (11.7-14.6) H 03/10/18 08:20 Plt Count 133 x1000/uL (130-400) 03/10/18 08:20 MPV 11.3 fL (8.0-11.0) H 03/10/18 08:20 Abs Immat Gran (auto) Cancelled 03/08/18 12:34 Immature Gran % 0.2 03/08/18 09:50 Neutrophils % 90.9 03/08/18 09:50 Lymphocytes % 6.2 03/08/18 09:50 Monocytes % 2.3 03/08/18 09:50 Eosinophils % 0.0 03/08/18 09:50 Basophils % 0.4 03/08/18 09:50 Absolute Neutrophils 7.62 k/cumm (1.2-6.7) H 03/08/18 09:50 Band Neutrophils Cancelled 03/08/18 12:34 Absolute Lymphocytes 0.52 k/cumm (1.2-3.4) L 03/08/18 09:50 Absolute Monocytes 0.19 k/cumm (0.11-0.7) 03/08/18 09:50 Absolute Eosinophils 0.00 k/cumm (0.0-0.7) 03/08/18 09:50 Absolute Basophils 0.03 k/cumm (0.0-0.2) 03/08/18 09:50 Metamyelocytes Cancelled 03/08/18 12:34 Myelocytes Cancelled 03/08/18 12:34 Promyelocytes Cancelled 03/08/18 12:34 Nucleated RBCs Cancelled 03/08/18 12:34 Differential Comment Cancelled 03/08/18 12:34 Atypical Lymphocytes Cancelled 03/08/18 12:34 Other Cell Type Cancelled 03/08/18 12:34 RBC Morphology Cancelled 03/08/18 12:34 Polychromasia Cancelled 03/08/18 12:34 Hypochromasia Cancelled 03/08/18 12:34 Poikilocytosis Cancelled 03/08/18 12:34 Basophilic Stippling Cancelled 03/08/18 12:34 Anisocytosis Cancelled 03/08/18 12:34 Microcytosis Cancelled 03/08/18 12:34 Macrocytosis Cancelled 03/08/18 12:34 Spherocytes Cancelled 03/08/18 12:34 Target Cells Cancelled 03/08/18 12:34 Tear Drop Cells Cancelled 03/08/18 12:34 Ovalocytes Cancelled 03/08/18 12:34 Stomatocytes Cancelled 03/08/18 12:34 [place] Bodies Cancelled 03/08/18 12:34 Raegan Cells Cancelled 03/08/18 12:34 Acanthocytes (Spur) Cancelled 03/08/18 12:34 Schistocytes Cancelled 03/08/18 12:34 Sodium 146 mmol/L (136-145) H 03/10/18 06:35 Potassium 3.7 mmol/L (3.5-5.1) 03/10/18 06:35 Chloride 111 mmol/L (98-107) H 03/10/18 06:35 Carbon Dioxide 24.8 mmol/L (21.0-32.0) 03/10/18 06:35 Anion Gap 10.2 mmol/L (3-11) 03/10/18 06:35 BUN 28 mg/dL (7-18) H 03/10/18 06:35 Creatinine 0.52 mg/dL (0.55-1.02) L 03/10/18 06:35 Estimated GFR/1.73 m2 >= 60.00 (mL/min/1.73m2) 03/10/18 06:35 Glucose 116 mg/dL (70-100) H 03/10/18 06:35 Lactate 1.3 mmol/L (0.6-1.4) 03/08/18 09:50 Calcium 8.2 mg/dL (8.5-10.1) L 03/10/18 06:35 Magnesium 1.9 mg/dL (1.8-2.4) 03/08/18 09:50 Total Bilirubin 0.5 mg/dL (0.2-1.0) 03/08/18 09:50 Conjugated Bilirubin 0.20 mg/dL (0.00-0.20) 03/08/18 09:50 AST 20 U/L (15-37) 03/08/18 09:50 ALT 28 U/L (12-78) 03/08/18 09:50 Alkaline Phosphatase 114 U/L (46-116) 03/08/18 09:50 Creatine Kinase 25 U/L (26-192) L 03/08/18 09:50 Troponin I < 0.02 ng/mL (0.00-0.06) 03/08/18 09:50 NT-Pro-B Natriuret Pep Cancelled 03/08/18 12:31 Total Protein 7.8 g/dL (6.4-8.2) 03/08/18 09:50 Albumin 3.6 g/dL (3.4-5.0) 03/08/18 09:50 Urine Color Yellow (Yellow) 03/08/18 13:30 Urine Clarity Clear 03/08/18 13:30 Urine pH 6.5 (5-8) 03/08/18 13:30 Ur Specific [place] 1.020 (1.005-1.025) 03/08/18 13:30 Urine Protein 30 mg/dL (Negative) H 03/08/18 13:30 Urine Ketones Negative mg/dL (Negative) 03/08/18 13:30 Urine Blood Negative (Negative) 03/08/18 13:30 Urine Nitrite Negative (Negative) 03/08/18 13:30 Urine Bilirubin Negative (Negative) 03/08/18 13:30 Urine Urobilinogen 0.2 EU/dL (Up TO 0.2) 03/08/18 13:30 Ur Leukocyte Esterase Negative (Negative) 03/08/18 13:30 Urine RBC 0-2 (0-2) 03/08/18 13:30 Urine WBC 20-50 HPF (0-5) 03/08/18 13:30 Ur Epithelial Cells Few HPF (Negative) 03/08/18 13:30 Urine Crystals Rare calcium oxalate HPF (Negative) 03/08/18 13:30 Urine Bacteria Few HPF (Negative) 03/08/18 13:30 Urine Casts Negative LPF (Negative) 03/08/18 13:30 Urine Mucus Negative (Negative) 03/08/18 13:30 Urine Other Moderate yeast (Negative) 03/08/18 13:30 Ur Culture Indicated? Yes 03/08/18 13:30 Urine Glucose Negative mg/dL (Negative) 03/08/18 13:30 Vancomycin Trough 19.5 ug/mL (10.0-20.0) 03/09/18 15:08 Patient ABO/Rh Cancelled 03/08/18 12:31
[2018-03-10] MEDS: PIPERACILLIN/TAZO 3.375 GM in Normal Saline 50 ML IVPB ×2 (14:34→19:30)
--- NOTE | 2018-03-10 19:20 | WOUNDCARE ---
Wound Care Report: This nurse was consulted to recommend care for a pressure injury proximal to patient's PEG tube. Patient was admitted to the ICU on 03/08/18 for sepsis syndrome. Pertinent history includes parkinson's syndrome, dysphagia, and anemia. Patient's history and physical, labs, medications, and vital signs were reviewed. Please see chart for further review. Patient is alert and oriented x 3 and is able to answer questions appropriately. She was not able to sign for consent for wound photography. She is on bedrest and being turned and repositioned q2h with staff assistance. She had the PEG tube placed in January and is currently receiving continuous tube feedings and free water through this, as well as medications. Diet order is NPO. Sutures from PEG tube were removed last night by Dr. Banegas. To patient's PEG tube, proximal to patient's skin is noted to be a flower shaped securement device. This nurse discussed care for wound with Dr. Banegas, who stated that it was acceptable to rotate PEG tube Q2H to provide pressure relief. Current treatment of wound ordered is bacitracin ointment TID. Proximal and inferior to patient's PEG tube is noted to be a stage 2 pressure injury measuring 0.3 x 1 x 0.3 cm. Wound bed is 100% red nongranulating tissue. Minimal serous drainage noted. Wound edges are unattached and unrolled. Periwound skin is reddened, but not swollen or hot to the touch. Wound is not tender to touch, and patient tolerated wound cleansing, assessment, and treatment very well. This nurse recommends the following: Cleansing wound with anasept wound cleanser and gauze to prevent infection. D/c use of anasept wound cleanser after 2 weeks of use. Applying skin prep to intact skin around PEG tube to prevent any further breakdown. Massaging hydrogel into a small piece of gauze and applying to wound bed to provide moist wound healing. Cutting bordered foam dressing to fit around PEG tube and applying to wound and skin around PEG tube to provide moist wound healing and to protect skin from further breakdown. Rotating PEG tube gently Q2H to provide pressure relief. D/c bacitracin as there are no s/s of wound infection.
[2018-03-11 00:22] VITALS: BP 132/76; PULSE 76; RESP 19; TEMP 36.2; O2SAT 98
[2018-03-11] MEDS: SODIUM CHLORIDE 0.45% 1,000 ML 150 ML IV (02:46)
[2018-03-11] MEDS: PIPERACILLIN/TAZO 3.375 GM in Normal Saline 50 ML IVPB ×4 (02:51→20:38)
[2018-03-11 07:20] VITALS: BP 130/73; PULSE 65; RESP 19; TEMP 36.7; O2SAT 92
--- NOTE | 2018-03-11 07:39 | CMPROGNOTE_ITS ---
- If Service Date Differs Date of service: 03/11/18 Time of Service: 07:37 Care Management Progress Note S/O: Jaylyn has been moved from the ICU and is now a patient on the [facility] floor. She is engaged in conversation, makes good eye contact, and is quite talkative. When CM visits, Jaylyn is in the process of having her blood drawn. She appears in no distress and reports that she feeling ok. She continues to receive IV fluids and antibiotics and has a tube feed at 78 ml/hr with free water at 200ml /hr [id number]. A: 52 year old female admitted with Urinary Tract Infection. P: Jaylyn will return to [facility] when medically ready per MD. Anticipate patient will follow up with MD at [facility]. Jaylyn will transport via w/c van. CM will continue to offer support to patient and care team regarding discharge planning and disposition.
[2018-03-11] MEDS: Bacitracin 1 PACKET TP (07:59)
[2018-03-11] MEDS: rOPINIRole 0.5 MG TAB 0.25 MG NG ×3 (07:59→20:41)
[2018-03-11] MEDS: Omeprazole 20 MG CAPCR NG (07:59)
[2018-03-11] MEDS: FLUoxetine 20 MG CAP PO (07:59)
[2018-03-11] MEDS: Propranolol 40 MG TAB NG (07:59)
[2018-03-11] MEDS: CARBIDOPA LEVODOPA 1 EACH PEG ×3 (08:01→20:41)
[2018-03-11 08:03] LABS: Abs Immature Grans 0.01 k/cumm (0.0-0.09); Absolute Basophil Count 0.03 k/cumm (0.0-0.2); Absolute Eosinophil Count 0.22 k/cumm (0.0-0.7); Absolute Lymphocyte Count 1.04 k/cumm (1.2-3.4); Absolute Monocyte Count 0.43 k/cumm (0.11-0.7); Absolute Neutrophil Count 3.13 k/cumm (1.2-6.7); Basophils % 0.6; Eosinophils % 4.5; HCT 30.6 % (36.0-46.0); HGB 9.5 g/dL (12.0-15.5); Immature Grans % 0.2; Lymphocytes % 21.4; Mean Corpuscular Hemoglobin 30.6 pg (27.0-33.0); Mean Corpuscular Volume 98.7 fL (80-95); Mean Platelet Volume 10.8 fL (8.0-11.0); Monocytes % 8.8; Neutrophils % 64.5; Platelet Count 147 x1000/uL (130-400); RBC Distribution Width 14.5 % (11.7-14.6); White Blood Cell Count 4.86 k/cumm (4.4-10.8)
[2018-03-11 08:12] LABS: Anion Gap 9.5 mmol/L (3-11); BUN 19 mg/dL (7-18); CO2 28.5 mmol/L (21.0-32.0); CREATININE 0.55 mg/dL (0.55-1.02); Calcium 8.3 mg/dL (8.5-10.1); Chloride 108 mmol/L (98-107); Glucose 125 mg/dL (70-100); Magnesium 1.7 mg/dL (1.8-2.4); Potassium 3.1 mmol/L (3.5-5.1); Sodium 146 mmol/L (136-145)
[2018-03-11] MEDS: MAGNESIUM SULFATE 2 GM/50 ML BAG IVPB (10:56)
[2018-03-11] MEDS: Enoxaparin 40 MG/0.4 ML SYR SC (14:25)
[2018-03-11] MEDS: Normal Saline Flush 10 ML SYR IVP (14:25)
[2018-03-11 17:30] VITALS: BP 119/63; PULSE 68; RESP 22; TEMP 36.7; O2SAT 99
--- NOTE | 2018-03-11 17:58 | PGE_ITS ---
Assessment and Plan (1) Sepsis syndrome: Current visit: No Status: Acute Sepsis (elevated temperature, tachypnea, tachycardia, and altered mental status on presentation) resolved. Aspiration event is still the most likely etiology, though imaging for this remains negative. Urine C&S is not consistent with UTI. S/p vancomycin/meropenem (3 days). On zosyn day 2. Clinically doing better. If diarrhea continues, will send for C.Diff PCR. (2) Parkinsons disease: Current visit: No Status: Chronic At baseline - Continue home antiparkinsonian medications through PEG. (3) Failure to thrive: Current visit: No Status: Chronic S/p PEG Tube placement in January of this year. Continue Jevity with current free water parameters. IVF d/c'ed. Monitor lytes. (4) Dysphagia: Current visit: No Status: Chronic With repeated episodes of aspiration, now getting all PO via PEG (placed ). Continue ice chips - otherwise, NPO. (5) Anemia: Current visit: No Status: Chronic Anemia of chronic disease, with low iron/TIBC and elevated Ferritin. Continue to monitor H/H. (6) DVT prophylaxis: Current visit: No Status: Acute Continue SC Lovenox. (7) Discharge planning issues: Current visit: No Status: Acute Full Code. Will be returning to SNF upon discharge. She likely will not need IV antibiotics on discharge. Subjective Interval history since last seen: Jaylyn states she feels better. Nursing reports that she has been having diarrhea. Initial screen is C. diff negative. The patiend denies any dizziness, chest pain, shortness of breath, nausea, any pain. Exam Narrative Exam Narrative: General: Less tremulous today middle-aged female, laying comfortably in bed, speach more clear Neurological: at her neurologic baseline - slightly tremulous, B foot drop Psychiatric: mildly anxious HEENT: EOMI, dry MM, no goiter or JVD Cardiovascular: RRR, no murmurs, rubs, or gallops Lungs: Clear/diminished breath sounds B Gastrointestinal: soft, nontender, nondistended; PEG tube in place Extremities: no edema, clubbing, or cyanosis of BLE's Objective Objective Clinical Data: Abnormal lab results 03/11/18 03/11/18 Range/Units 07:40 07:40 RBC 3.10 L (4.00-5.20) m/cumm Hgb 9.5 L (12.0-15.5) g/dL Hct 30.6 L (36.0-46.0) % MCV 98.7 H (80-95) fL MCHC 31.0 L (32.0-36.0) g/dL Absolute Lymphocytes 1.04 L (1.2-3.4) k/cumm Sodium 146 H (136-145) mmol/L Potassium 3.1 L (3.5-5.1) mmol/L Chloride 108 H (98-107) mmol/L BUN 19 H D (7-18) mg/dL Glucose 125 H (70-100) mg/dL Calcium 8.3 L (8.5-10.1) mg/dL Magnesium 1.7 L (1.8-2.4) mg/dL Vital Signs Temperature 36.7 C 03/11/18 17:30 Temperature Source Tympanic 03/11/18 17:30 Pulse 68 03/11/18 17:30 Pulse Rhythm Regular 03/11/18 11:23 Pulse 67 03/10/18 09:00 Respiratory Rate 22 03/11/18 17:30 Respiratory Effort Non-Labored 03/11/18 11:23 Respiratory Depth Normal 03/11/18 11:23 Respiratory Pattern Normal 03/11/18 11:23 Blood Pressure 119/63 03/11/18 17:30 Blood Pressure Mean 89 03/10/18 15:41 Blood Pressure Position Supine 03/10/18 07:30 Pulse Oximetry 99 03/11/18 17:30 Oxygen Delivery Method Room Air 03/11/18 17:30 Oxygen Flow Rate 0 03/11/18 17:30 Pain Level 0 03/11/18 17:30 Comment 03/09/18 13:00 Intake & Output 03/10/18 03/11/18 03/11/18 23:59 11:59 23:59 Intake Total 1962 / 1962 2448 / 2448 1050 / 1050 Output Total 1400 / 1400 1491 / 1491 Balance 563 / 563 957 / 957 1050 / 1050 Weight 53.9 kg Intake: IV 1495 / 1495 1100 / 1100 1050 / 1050 Oral 0 / 0 Intake, Tube Feeding Amount 468 / 468 1348 / 1348 Output: Urine 1400 / 1400 1475 / 1475 Output, Residual 16 / 16 Other: Urine Color Pale Yellow Yellow Urine Appearance Clear Clear Stool Size Moderate Large Large Stool Characteristics Brown Liquid Liquid Brown Brown Laboratory Results WBC 4.86 k/cumm (4.4-10.8) 03/11/18 07:40 RBC 3.10 m/cumm (4.00-5.20) L 03/11/18 07:40 Hgb 9.5 g/dL (12.0-15.5) L 03/11/18 07:40 Hct 30.6 % (36.0-46.0) L 03/11/18 07:40 MCV 98.7 fL (80-95) H 03/11/18 07:40 MCH 30.6 pg (27.0-33.0) 03/11/18 07:40 MCHC 31.0 g/dL (32.0-36.0) L 03/11/18 07:40 RDW 14.5 % (11.7-14.6) 03/11/18 07:40 Plt Count 147 x1000/uL (130-400) 03/11/18 07:40 MPV 10.8 fL (8.0-11.0) 03/11/18 07:40 Abs Immat Gran (auto) Cancelled 03/08/18 12:34 Immature Gran % 0.2 03/11/18 07:40 Neutrophils % 64.5 03/11/18 07:40 Lymphocytes % 21.4 03/11/18 07:40 Monocytes % 8.8 03/11/18 07:40 Eosinophils % 4.5 03/11/18 07:40 Basophils % 0.6 03/11/18 07:40 Absolute Neutrophils 3.13 k/cumm (1.2-6.7) 03/11/18 07:40 Band Neutrophils Cancelled 03/08/18 12:34 Absolute Lymphocytes 1.04 k/cumm (1.2-3.4) L 03/11/18 07:40 Absolute Monocytes 0.43 k/cumm (0.11-0.7) 03/11/18 07:40 Absolute Eosinophils 0.22 k/cumm (0.0-0.7) 03/11/18 07:40 Absolute Basophils 0.03 k/cumm (0.0-0.2) 03/11/18 07:40 Metamyelocytes Cancelled 03/08/18 12:34 Myelocytes Cancelled 03/08/18 12:34 Promyelocytes Cancelled 03/08/18 12:34 Nucleated RBCs Cancelled 03/08/18 12:34 Differential Comment Cancelled 03/08/18 12:34 Atypical Lymphocytes Cancelled 03/08/18 12:34 Other Cell Type Cancelled 03/08/18 12:34 RBC Morphology Cancelled 03/08/18 12:34 Polychromasia Cancelled 03/08/18 12:34 Hypochromasia Cancelled 03/08/18 12:34 Poikilocytosis Cancelled 03/08/18 12:34 Basophilic Stippling Cancelled 03/08/18 12:34 Anisocytosis Cancelled 03/08/18 12:34 Microcytosis Cancelled 03/08/18 12:34 Macrocytosis Cancelled 03/08/18 12:34 Spherocytes Cancelled 03/08/18 12:34 Target Cells Cancelled 03/08/18 12:34 Tear Drop Cells Cancelled 03/08/18 12:34 Ovalocytes Cancelled 03/08/18 12:34 Stomatocytes Cancelled 03/08/18 12:34 [place] Bodies Cancelled 03/08/18 12:34 Raegan Cells Cancelled 03/08/18 12:34 Acanthocytes (Spur) Cancelled 03/08/18 12:34 Schistocytes Cancelled 03/08/18 12:34 Sodium 146 mmol/L (136-145) H 03/11/18 07:40 Potassium 3.1 mmol/L (3.5-5.1) L 03/11/18 07:40 Chloride 108 mmol/L (98-107) H 03/11/18 07:40 Carbon Dioxide 28.5 mmol/L (21.0-32.0) 03/11/18 07:40 Anion Gap 9.5 mmol/L (3-11) 03/11/18 07:40 BUN 19 mg/dL (7-18) H D 03/11/18 07:40 Creatinine 0.55 mg/dL (0.55-1.02) 03/11/18 07:40 Estimated GFR/1.73 m2 >= 60.00 (mL/min/1.73m2) 03/11/18 07:40 Glucose 125 mg/dL (70-100) H 03/11/18 07:40 Lactate 1.3 mmol/L (0.6-1.4) 03/08/18 09:50 Calcium 8.3 mg/dL (8.5-10.1) L 03/11/18 07:40 Magnesium 1.7 mg/dL (1.8-2.4) L 03/11/18 07:40 Total Bilirubin 0.5 mg/dL (0.2-1.0) 03/08/18 09:50 Conjugated Bilirubin 0.20 mg/dL (0.00-0.20) 03/08/18 09:50 AST 20 U/L (15-37) 03/08/18 09:50 ALT 28 U/L (12-78) 03/08/18 09:50 Alkaline Phosphatase 114 U/L (46-116) 03/08/18 09:50 Creatine Kinase 25 U/L (26-192) L 03/08/18 09:50 Troponin I < 0.02 ng/mL (0.00-0.06) 03/08/18 09:50 NT-Pro-B Natriuret Pep Cancelled 03/08/18 12:31 Total Protein 7.8 g/dL (6.4-8.2) 03/08/18 09:50 Albumin 3.6 g/dL (3.4-5.0) 03/08/18 09:50 Urine Color Yellow (Yellow) 03/08/18 13:30 Urine Clarity Clear 03/08/18 13:30 Urine pH 6.5 (5-8) 03/08/18 13:30 Ur Specific [place] 1.020 (1.005-1.025) 03/08/18 13:30 Urine Protein 30 mg/dL (Negative) H 03/08/18 13:30 Urine Ketones Negative mg/dL (Negative) 03/08/18 13:30 Urine Blood Negative (Negative) 03/08/18 13:30 Urine Nitrite Negative (Negative) 03/08/18 13:30 Urine Bilirubin Negative (Negative) 03/08/18 13:30 Urine Urobilinogen 0.2 EU/dL (Up TO 0.2) 03/08/18 13:30 Ur Leukocyte Esterase Negative (Negative) 03/08/18 13:30 Urine RBC 0-2 (0-2) 03/08/18 13:30 Urine WBC 20-50 HPF (0-5) 03/08/18 13:30 Ur Epithelial Cells Few HPF (Negative) 03/08/18 13:30 Urine Crystals Rare calcium oxalate HPF (Negative) 03/08/18 13:30 Urine Bacteria Few HPF (Negative) 03/08/18 13:30 Urine Casts Negative LPF (Negative) 03/08/18 13:30 Urine Mucus Negative (Negative) 03/08/18 13:30 Urine Other Moderate yeast (Negative) 03/08/18 13:30 Ur Culture Indicated? Yes 03/08/18 13:30 Urine Glucose Negative mg/dL (Negative) 03/08/18 13:30 Vancomycin Trough 19.5 ug/mL (10.0-20.0) 03/09/18 15:08 Patient ABO/Rh Cancelled 03/08/18 12:31
[2018-03-11 23:43] VITALS: BP 120/84; PULSE 61; RESP 18; TEMP 36; O2SAT 97
[2018-03-12] MEDS: PIPERACILLIN/TAZO 3.375 GM in Normal Saline 50 ML IVPB ×4 (01:28→20:55)
[2018-03-12 07:16] LABS: Abs Immature Grans 0.01 k/cumm (0.0-0.09); Absolute Basophil Count 0.03 k/cumm (0.0-0.2); Absolute Eosinophil Count 0.25 k/cumm (0.0-0.7); Absolute Lymphocyte Count 0.98 k/cumm (1.2-3.4); Absolute Monocyte Count 0.49 k/cumm (0.11-0.7); Absolute Neutrophil Count 2.73 k/cumm (1.2-6.7); Basophils % 0.7; Eosinophils % 5.6; HGB 9.7 g/dL (12.0-15.5); Immature Grans % 0.2; Lymphocytes % 21.8; Mean Corp. HGB Concentration 30.3 g/dL (32.0-36.0); Mean Corpuscular Volume 99.1 fL (80-95); Mean Platelet Volume 10.9 fL (8.0-11.0); Monocytes % 10.9; Neutrophils % 60.8; Platelet Count 162 x1000/uL (130-400); RBC 3.23 m/cumm (4.00-5.20); RBC Distribution Width 14.7 % (11.7-14.6); White Blood Cell Count 4.49 k/cumm (4.4-10.8)
[2018-03-12 07:27] LABS: Anion Gap 7.1 mmol/L (3-11); BUN 20 mg/dL (7-18); CO2 29.9 mmol/L (21.0-32.0); CREATININE 0.65 mg/dL (0.55-1.02); Calcium 8.8 mg/dL (8.5-10.1); Chloride 108 mmol/L (98-107); Glucose 129 mg/dL (70-100); Magnesium 2.3 mg/dL (1.8-2.4); Potassium 4.5 mmol/L (3.5-5.1); Sodium 145 mmol/L (136-145)
[2018-03-12 07:30] VITALS: BP 112/76; PULSE 73; RESP 17; TEMP 36; O2SAT 93
[2018-03-12] MEDS: Normal Saline Flush 10 ML SYR IVP ×3 (08:53→20:53)
[2018-03-12] MEDS: FLUoxetine 20 MG CAP PO (08:54)
[2018-03-12] MEDS: rOPINIRole 0.5 MG TAB 0.25 MG NG ×3 (08:55→20:53)
[2018-03-12] MEDS: Omeprazole 20 MG CAPCR NG (08:55)
[2018-03-12] MEDS: Propranolol 40 MG TAB NG (08:55)
[2018-03-12] MEDS: CARBIDOPA LEVODOPA 1 EACH PEG ×3 (09:02→21:01)
--- NOTE | 2018-03-12 10:56 | W.PM.PROGNOT ---
Assessment and Plan (1) Parkinsons disease: Current visit: No Status: Chronic stable, continue carbidopa-levodopa as currently scheduled. (2) PEG (percutaneous endoscopic gastrostomy) adjustment/replacement/removal: Current visit: No Status: Chronic concern for ongoing aspiration. will add nutrition consult to trial bolus feedings versus continuous. recommendations placed for bolus feeds 4 times daily (3) DVT prophylaxis: Current visit: No Status: Acute continue daily enoxaparin (4) Discharge planning issues: Current visit: No Status: Acute will return to [facility] when medically stable. (5) Anemia: Current visit: No Status: Chronic H&H is stable, no new orders (6) Recurrent aspiration events: Current visit: No Status: Chronic will trial bolus feedings. her respiratory status is stable, (7) Diarrhea: Current visit: Yes Status: Acute cdiff was negative. had not had loose stools overnight but started again today. will continue to monitor. Can have Imodium as needed. Will send additional stool samples and PCR for C. difficile. (8) Sepsis syndrome: Current visit: No Status: Acute Sepsis syndrome is resolved. She has completed 5 days of broad-spectrum antibiotics which are due to discontinued today. Subjective Patient reports: no new complaints, no bowel movement (Has not had any loose stools overnight or today) and afebrile; denies shortness of breath Exam Const General: no acute distress, frail appearing and ill appearing chronically Nutritional Appearance: cachectic Orientation: alert, awake and oriented x3 HENMT Head: normal to inspection, normocephalic and atraumatic Mouth: moist mucous membranes abnormal (Severe dryness) Resp Effort & Inspection: normal respiratory effort, able to speak in complete sentences and no respiratory distress Auscultation: clear to auscultation bilaterally and diminished lung sounds bilaterally Cardio Rate: regular rate Rhythm: regular rhythm GI Palpation: soft Auscultation: normal bowel sounds Other: Gtube intact and infusing well. small open area packed with gauze to lower right side of feeding tube. no drainage or erythema surrounding area. General: other (marks to gravity, clear yellow urine) Skin Lesions: lesion noted (below gtube insertion site, packed with gauze, no redness or evidence of infection) and other (stage 2 pressure area to coccyx, see nursing notes for full details/description) Extrem General: normal to inspection and no pedal edema Psych Appearance: grossly normal Speech and Movement: speech and movement normal Attitude: cooperative Objective Objective Clinical Data: Abnormal lab results 03/12/18 03/12/18 Range/Units 06:50 06:50 RBC 3.23 L (4.00-5.20) m/cumm Hgb 9.7 L (12.0-15.5) g/dL Hct 32.0 L (36.0-46.0) % MCV 99.1 H (80-95) fL MCHC 30.3 L (32.0-36.0) g/dL RDW 14.7 H (11.7-14.6) % Absolute Lymphocytes 0.98 L (1.2-3.4) k/cumm Chloride 108 H (98-107) mmol/L BUN 20 H (7-18) mg/dL Glucose 129 H (70-100) mg/dL Vital Signs Temperature 36 C L 03/12/18 07:30 Temperature Source Tympanic 03/12/18 07:30 Pulse 73 03/12/18 07:30 Pulse Rhythm Regular 03/12/18 08:55 Pulse 67 03/10/18 09:00 Respiratory Rate 17 03/12/18 07:30 Respiratory Effort Non-Labored 03/12/18 08:55 Respiratory Depth Normal 03/12/18 08:55 Respiratory Pattern Normal 03/12/18 08:55 Blood Pressure 112/76 03/12/18 07:30 Blood Pressure Mean 89 03/10/18 15:41 Blood Pressure Position Supine 03/10/18 07:30 Pulse Oximetry 93 L 03/12/18 07:30 Oxygen Delivery Method Room Air 03/12/18 07:30 Oxygen Flow Rate 0 03/12/18 07:30 Pain Level 0 03/12/18 07:30 Comment 03/09/18 13:00 Intake & Output 03/11/18 03/11/18 03/12/18 11:59 23:59 11:59 Intake Total 2448 / 2448 1100 / 1100 588 / 588 Output Total 1491 / 1491 600 / 600 1500 / 1500 Balance 957 / 957 500 / 500 -912 / -912 Weight 53.9 kg 50.1 kg Intake: IV 1100 / 1100 1100 / 1100 110 / 110 Oral 0 / 0 Intake, Tube Feeding Amount 1348 / 1348 478 / 478 Output: Urine 1475 / 1475 600 / 600 1500 / 1500 Output, Residual 16 / 0 / 0 0 / 0 Other: Urine Color Yellow Yellow Yellow Urine Appearance Clear Clear Clear Stool Size Large Small Stool Characteristics Liquid Liquid Brown Brown Laboratory Results WBC 4.49 k/cumm (4.4-10.8) 03/12/18 06:50 RBC 3.23 m/cumm (4.00-5.20) L 03/12/18 06:50 Hgb 9.7 g/dL (12.0-15.5) L 03/12/18 06:50 Hct 32.0 % (36.0-46.0) L 03/12/18 06:50 MCV 99.1 fL (80-95) H 03/12/18 06:50 MCH 30.0 pg (27.0-33.0) 03/12/18 06:50 MCHC 30.3 g/dL (32.0-36.0) L 03/12/18 06:50 RDW 14.7 % (11.7-14.6) H 03/12/18 06:50 Plt Count 162 x1000/uL (130-400) 03/12/18 06:50 MPV 10.9 fL (8.0-11.0) 03/12/18 06:50 Abs Immat Gran (auto) Cancelled 03/08/18 12:34 Immature Gran % 0.2 03/12/18 06:50 Neutrophils % 60.8 03/12/18 06:50 Lymphocytes % 21.8 03/12/18 06:50 Monocytes % 10.9 03/12/18 06:50 Eosinophils % 5.6 03/12/18 06:50 Basophils % 0.7 03/12/18 06:50 Absolute Neutrophils 2.73 k/cumm (1.2-6.7) 03/12/18 06:50 Band Neutrophils Cancelled 03/08/18 12:34 Absolute Lymphocytes 0.98 k/cumm (1.2-3.4) L 03/12/18 06:50 Absolute Monocytes 0.49 k/cumm (0.11-0.7) 03/12/18 06:50 Absolute Eosinophils 0.25 k/cumm (0.0-0.7) 03/12/18 06:50 Absolute Basophils 0.03 k/cumm (0.0-0.2) 03/12/18 06:50 Metamyelocytes Cancelled 03/08/18 12:34 Myelocytes Cancelled 03/08/18 12:34 Promyelocytes Cancelled 03/08/18 12:34 Nucleated RBCs Cancelled 03/08/18 12:34 Differential Comment Cancelled 03/08/18 12:34 Atypical Lymphocytes Cancelled 03/08/18 12:34 Other Cell Type Cancelled 03/08/18 12:34 RBC Morphology Cancelled 03/08/18 12:34 Polychromasia Cancelled 03/08/18 12:34 Hypochromasia Cancelled 03/08/18 12:34 Poikilocytosis Cancelled 03/08/18 12:34 Basophilic Stippling Cancelled 03/08/18 12:34 Anisocytosis Cancelled 03/08/18 12:34 Microcytosis Cancelled 03/08/18 12:34 Macrocytosis Cancelled 03/08/18 12:34 Spherocytes Cancelled 03/08/18 12:34 Target Cells Cancelled 03/08/18 12:34 Tear Drop Cells Cancelled 03/08/18 12:34 Ovalocytes Cancelled 03/08/18 12:34 Stomatocytes Cancelled 03/08/18 12:34 [place] Bodies Cancelled 03/08/18 12:34 [place] Cells Cancelled 03/08/18 12:34 Acanthocytes (Spur) Cancelled 03/08/18 12:34 Schistocytes Cancelled 03/08/18 12:34 Sodium 145 mmol/L (136-145) 03/12/18 06:50 Potassium 4.5 mmol/L (3.5-5.1) D 03/12/18 06:50 Chloride 108 mmol/L (98-107) H 03/12/18 06:50 Carbon Dioxide 29.9 mmol/L (21.0-32.0) 03/12/18 06:50 Anion Gap 7.1 mmol/L (3-11) 03/12/18 06:50 BUN 20 mg/dL (7-18) H 03/12/18 06:50 Creatinine 0.65 mg/dL (0.55-1.02) 03/12/18 06:50 Estimated GFR/1.73 m2 >= 60.00 (mL/min/1.73m2) 03/12/18 06:50 Glucose 129 mg/dL (70-100) H 03/12/18 06:50 Lactate 1.3 mmol/L (0.6-1.4) 03/08/18 09:50 Calcium 8.8 mg/dL (8.5-10.1) 03/12/18 06:50 Magnesium 2.3 mg/dL (1.8-2.4) 03/12/18 06:50 Total Bilirubin 0.5 mg/dL (0.2-1.0) 03/08/18 09:50 Conjugated Bilirubin 0.20 mg/dL (0.00-0.20) 03/08/18 09:50 AST 20 U/L (15-37) 03/08/18 09:50 ALT 28 U/L (12-78) 03/08/18 09:50 Alkaline Phosphatase 114 U/L (46-116) 03/08/18 09:50 Creatine Kinase 25 U/L (26-192) L 03/08/18 09:50 Troponin I < 0.02 ng/mL (0.00-0.06) 03/08/18 09:50 NT-Pro-B Natriuret Pep Cancelled 03/08/18 12:31 Total Protein 7.8 g/dL (6.4-8.2) 03/08/18 09:50 Albumin 3.6 g/dL (3.4-5.0) 03/08/18 09:50 Urine Color Yellow (Yellow) 03/08/18 13:30 Urine Clarity Clear 03/08/18 13:30 Urine pH 6.5 (5-8) 03/08/18 13:30 Ur Specific [place] 1.020 (1.005-1.025) 03/08/18 13:30 Urine Protein 30 mg/dL (Negative) H 03/08/18 13:30 Urine Ketones Negative mg/dL (Negative) 03/08/18 13:30 Urine Blood Negative (Negative) 03/08/18 13:30 Urine Nitrite Negative (Negative) 03/08/18 13:30 Urine Bilirubin Negative (Negative) 03/08/18 13:30 Urine Urobilinogen 0.2 EU/dL (Up TO 0.2) 03/08/18 13:30 Ur Leukocyte Esterase Negative (Negative) 03/08/18 13:30 Urine RBC 0-2 (0-2) 03/08/18 13:30 Urine WBC 20-50 HPF (0-5) 03/08/18 13:30 Ur Epithelial Cells Few HPF (Negative) 03/08/18 13:30 Urine Crystals Rare calcium oxalate HPF (Negative) 03/08/18 13:30 Urine Bacteria Few HPF (Negative) 03/08/18 13:30 Urine Casts Negative LPF (Negative) 03/08/18 13:30 Urine Mucus Negative (Negative) 03/08/18 13:30 Urine Other Moderate yeast (Negative) 03/08/18 13:30 Ur Culture Indicated? Yes 03/08/18 13:30 Urine Glucose Negative mg/dL (Negative) 03/08/18 13:30 Vancomycin Trough 19.5 ug/mL (10.0-20.0) 03/09/18 15:08 Patient ABO/Rh Cancelled 03/08/18 12:31
[2018-03-12] MEDS: Enoxaparin 40 MG/0.4 ML SYR SC (11:05)
--- NOTE | 2018-03-12 11:31 | SATEXT_ITS ---
Assessment: Nutrition consult for tube feeding recommendations for bolus feeds r /t concerns of aspiration. She is currently getting 1560 ml/day at a continuous rate of 78 ml/hr with free water 250 ml, four times per day. Her weight is variable, but no significant change. She is 50.1 kg today. Hospitalist progress note refers to diarrhea ongoing. Nutritional Diagnosis: Inability to take oral foods and fluids related to dysphagia. Intervention: Bolus tube feeding recommendations as follows: Jevity 1.2 tricia: 390 ml bolus @ approximate times of 0800, 1200, 1500, 1800. Pt. will also need 1000 ml of free water to be given throughout the day. She could get 250 ml bolus of free water at 0600, 1000,1400, and 1700 or with her medication schedule. These are recommendations of a proposed schedule. * If diarrhea is persistent, would consider going 1:1 with Jevity 1.2 tricia and Osmolite 1.2 tricia to reduce the fiber load of her feeding as Osmolite 1.2 tricia has the same nutrient content but without the fiber. * Another consideration with her aspiration is the volume load of her feeding. We can consider a more concentrated feeding such as a 1.5 tricia/ml or even a 2.0 tricia/ml feeding so she doesn't have to have such a high volume. The trade off is that they are hypertonic and she is already having diarrhea. We can trial one change at a time and see what works best. Monitoring and Evaluation: 1. Will monitor her tolerance to bolus feeds and weight. 2. Will continue to evaluate her nutrition care plan and adjust as needed. Will remain available for recommendations as needed. Thank you for the consult.
--- NOTE | 2018-03-12 12:00 | PDOC.CMPRO ---
- If Service Date Differs Date of service: 03/12/18 Time of Service: 12:00 Care Management Progress Note S/O: Jaylyn is lying in bed when this speech writer visits this morning. She is pleasant and open to discussion. Jaylyn continues with tube feeds and a nutrition consult will be ordered for today. MEAGHAN spoke with [facility], to alert that Jaylyn will not be ready for DC today. A: 52 year old female admitted with Urinary Tract Infection. P: Jaylyn will return to [facility] when medically ready per MD. Anticipate patient will follow up with MD at [facility]. Jaylyn will transport via w/c van. CM will continue to offer support to patient and care team regarding discharge planning and disposition.
--- NOTE | 2018-03-12 12:17 | CMPROGNOTE_ITS ---
- If Service Date Differs Date of service: 03/12/18 Time of Service: 12:00 Care Management Progress Note S/O: Jaylyn is lying in bed when this scenario writer visits this morning. She is pleasant and open to discussion. Jaylyn continues with tube feeds and a nutrition consult will be ordered for today. MEAGHAN spoke with [facility], to alert that Jaylyn will not be ready for DC today. A: 52 year old female admitted with Urinary Tract Infection. P: Jaylyn will return to [facility] when medically ready per MD. Anticipate patient will follow up with MD at [facility]. Jaylyn will transport via w/c van. CM will continue to offer support to patient and care team regarding discharge planning and disposition.
[2018-03-12 12:18] LABS: Bilirubin Negative (Negative); Blood Negative (Negative); Clarity Clear; Glucose Negative (Negative); Ketones Negative (Negative); Leukocyte Esterase Negative (Negative); Nitrite Negative (Negative); Urobilinogen 0.2 EU/dL (Up TO 0.2); pH 7.5 (5-8)
[2018-03-12 12:29] LABS: Bacteria Negative HPF (Negative); Crystals Negative HPF (Negative); Epithelial Cells Rare HPF (Negative); Mucus Trace (Negative); RBC 0-2 (0-2); WBC 0-2 HPF (0-5)
[2018-03-12 12:30] LABS: C & S Indicated? Yes; Casts Negative LPF (Negative); Other Cells Few Yeast (Negative)
--- NOTE | 2018-03-12 15:46 | CHAPLAIN ---
Jaylyn was much more interactive today, and easier to understand. She told me about her brothers visiting Monday and over the weekend. When she talked about her brothers, she told me that the oldest two are 18 and 19 years older than her and that her own sons are several years a part as well. Her brother Carlos Alberto told me last week that he eldest son is incarcerated and her 13 year-old son is in state custody. Jaylyn was asking for ice chips and her DAVE, All, said she would be there shortly to give Jaylyn ice chips one at a time.
[2018-03-12 16:28] VITALS: BP 116/57; PULSE 72; RESP 16; TEMP 36.6; O2SAT 92
[2018-03-13 00:08] VITALS: BP 100/61; PULSE 70; RESP 18; TEMP 36.6; O2SAT 95
[2018-03-13 07:35] VITALS: BP 118/68; PULSE 68; RESP 18; TEMP 36.3; O2SAT 97
[2018-03-13] MEDS: CARBIDOPA LEVODOPA 1 EACH PEG ×3 (09:16→20:35)
[2018-03-13] MEDS: FLUoxetine 20 MG CAP PO (09:17)
[2018-03-13] MEDS: Omeprazole 20 MG CAPCR NG (09:17)
[2018-03-13] MEDS: Propranolol 40 MG TAB NG (09:17)
[2018-03-13] MEDS: rOPINIRole 0.5 MG TAB 0.25 MG NG ×3 (09:17→20:39)
[2018-03-13] MEDS: Enoxaparin 40 MG/0.4 ML SYR SC (12:14)
--- NOTE | 2018-03-13 13:31 | PDOC.CMPRO ---
- If Service Date Differs Date of service: 03/13/18 Time of Service: 13:31 Care Management Progress Note S/O: Jaylyn is lying in bed when this publications writer visits this morning. She is pleasant throughout discussion and states that she is feeling okay. Per report Jaylyn continues to have diarrhea, and currently awaiting PCR results for C Diff. DC plan remains the same at this time. A: 52 year old female admitted with Urinary Tract Infection. P: Jaylyn will return to [facility] when medically ready per MD. Anticipate patient will follow up with MD at [facility]. Jaylyn will transport via w/c van. will continue to offer support to patient and care team regarding discharge planning and disposition.
--- NOTE | 2018-03-13 13:51 | CMPROGNOTE_ITS ---
- If Service Date Differs Date of service: 03/13/18 Time of Service: 13:31 Care Management Progress Note S/O: Jaylyn is lying in bed when this manual writer visits this morning. She is pleasant throughout discussion and states that she is feeling okay. Per report Jaylyn continues to have diarrhea, and currently awaiting PCR results for C Diff. DC plan remains the same at this time. A: 52 year old female admitted with Urinary Tract Infection. P: Jaylyn will return to [facility] when medically ready per MD. Anticipate patient will follow up with MD at [facility]. Jaylyn will transport via w/c van. will continue to offer support to patient and care team regarding discharge planning and disposition.
--- NOTE | 2018-03-13 15:31 | W.PM.PROGNOT ---
Assessment and Plan (1) Parkinsons disease: Current visit: No Status: Chronic Stable on Carbidopa-Levodopa, continue current regimen. (2) PEG (percutaneous endoscopic gastrostomy) adjustment/replacement/removal: Current visit: No Status: Chronic There was concern for ongoing aspiration with continuous tube feeds. Nutrition was consulted to discuss trial of bolus feeds. She transitioned to bolus feeds 4x/day, she is tolerating it well. Continue per nutrition recommendations. (3) Recurrent aspiration events: Current visit: No Status: Chronic Stable. Continue bolus feedings and continue to monitor respiratory status. (4) Anemia: Current visit: No Status: Chronic H&H stable. (5) Diarrhea: Current visit: Yes Status: Acute C-diff PCR pending. She is no longer having diarrhea. Continue to monitor stool studies. Possibly related to antibiotics which have been completed. (6) Sepsis syndrome: Current visit: No Status: Acute Resolved. She has completed 5 day course of broad spectrum antibiotics. (7) DVT prophylaxis: Current visit: No Status: Acute Subcutaneous lovenox. (8) Discharge planning issues: Current visit: No Status: Acute She is a FULL CODE. She will likely be ready to return to [facility] tomorrow. This case was discussed with Dr. Klein who is in agreement. (9) Rash: Current visit: Yes Status: Acute She has a rash on her back, buttocks and posterior legs. Appears to be heat rash. Apply steroid cream and antifungal powder. 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 She completed her course of antibiotics, she remains afebrile, her tube feeds were changed from continuous to bolus feeds yesterday and she is doing well with this. She is taking ice chips PO without difficulty. She has a rash on her back, down to her legs, she reports that it is itchy. She reports feeling better overall, she denies any dizziness today, she denies chest pain, pressure, palpitations, shortness of breath, cough, wheeze, nausea, vomiting. She did have some diarrhea but this has resolved. She feels that the tube feedings are going well. Exam Const General: cooperative, comfortable, no acute distress and frail appearing (Parkinsonian.) Nutritional Appearance: thin Orientation: alert, awake and oriented x3 HENMT Head: normocephalic and atraumatic Mouth: moist mucous membranes abnormal (lips slightly dry, taking ice chips PO.) Neck Neck: supple and no JVD Resp Effort & Inspection: normal respiratory effort Auscultation: clear to auscultation bilaterally Cardio Rate: regular rate Rhythm: regular rhythm Heart Sounds: S1 normal, S2 normal and no murmurs GI Palpation: soft, no masses and nontender Auscultation: normal bowel sounds Skin Rashes: rashes noted (She has a diffuse maculopapular rash down back, over buttocks and down posterior legs bilaterally to knees. ) Extrem General: no clubbing, cyanosis or edema Objective Objective Clinical Data: Vital Signs Temperature 36.3 C L 03/13/18 07:35 Temperature Source Tympanic 03/13/18 07:35 Pulse 68 03/13/18 07:35 Pulse Rhythm Regular 03/13/18 07:41 Pulse 67 03/10/18 09:00 Respiratory Rate 18 03/13/18 07:35 Respiratory Effort Non-Labored 03/13/18 07:41 Respiratory Depth Normal 03/13/18 07:41 Respiratory Pattern Normal 03/13/18 07:41 Blood Pressure 118/68 03/13/18 07:35 Blood Pressure Mean 89 03/10/18 15:41 Blood Pressure Position Supine 03/10/18 07:30 Pulse Oximetry 97 03/13/18 07:35 Oxygen Delivery Method Room Air 03/13/18 07:35 Oxygen Flow Rate 0 03/13/18 07:35 Pain Level 0 03/12/18 07:30 Comment 03/09/18 13:00 Intake & Output 03/12/18 03/13/18 03/13/18 23:59 11:59 23:59 Intake Total 510 / 510 450 / 450 390 / 390 Output Total 0 / 0 1200 / 1200 297 / 297 Balance 510 / 510 -750 / -750 93 / 93 Weight 47.9 kg Intake: IV 120 / 120 Oral 60 / 60 Intake, Tube Feeding Amount 390 / 390 390 / 390 390 / 390 Output: Urine 1200 / 1200 260 / 260 Output, Residual 0 / 0 0 / 0 37 / 37 Other: Urine Color Yellow Pale Urine Appearance Clear Clear Clear Urine Odor Strong Stool Size Smear Stool Characteristics Soft Voiding Methods Incontinent Laboratory Results WBC 4.49 k/cumm (4.4-10.8) 03/12/18 06:50 RBC 3.23 m/cumm (4.00-5.20) L 03/12/18 06:50 Hgb 9.7 g/dL (12.0-15.5) L 03/12/18 06:50 Hct 32.0 % (36.0-46.0) L 03/12/18 06:50 MCV 99.1 fL (80-95) H 03/12/18 06:50 MCH 30.0 pg (27.0-33.0) 03/12/18 06:50 MCHC 30.3 g/dL (32.0-36.0) L 03/12/18 06:50 RDW 14.7 % (11.7-14.6) H 03/12/18 06:50 Plt Count 162 x1000/uL (130-400) 03/12/18 06:50 MPV 10.9 fL (8.0-11.0) 03/12/18 06:50 Abs Immat Gran (auto) Cancelled 03/08/18 12:34 Immature Gran % 0.2 03/12/18 06:50 Neutrophils % 60.8 03/12/18 06:50 Lymphocytes % 21.8 03/12/18 06:50 Monocytes % 10.9 03/12/18 06:50 Eosinophils % 5.6 03/12/18 06:50 Basophils % 0.7 03/12/18 06:50 Absolute Neutrophils 2.73 k/cumm (1.2-6.7) 03/12/18 06:50 Band Neutrophils Cancelled 03/08/18 12:34 Absolute Lymphocytes 0.98 k/cumm (1.2-3.4) L 03/12/18 06:50 Absolute Monocytes 0.49 k/cumm (0.11-0.7) 03/12/18 06:50 Absolute Eosinophils 0.25 k/cumm (0.0-0.7) 03/12/18 06:50 Absolute Basophils 0.03 k/cumm (0.0-0.2) 03/12/18 06:50 Metamyelocytes Cancelled 03/08/18 12:34 Myelocytes Cancelled 03/08/18 12:34 Promyelocytes Cancelled 03/08/18 12:34 Nucleated RBCs Cancelled 03/08/18 12:34 Differential Comment Cancelled 03/08/18 12:34 Atypical Lymphocytes Cancelled 03/08/18 12:34 Other Cell Type Cancelled 03/08/18 12:34 RBC Morphology Cancelled 03/08/18 12:34 Polychromasia Cancelled 03/08/18 12:34 Hypochromasia Cancelled 03/08/18 12:34 Poikilocytosis Cancelled 03/08/18 12:34 Basophilic Stippling Cancelled 03/08/18 12:34 Anisocytosis Cancelled 03/08/18 12:34 Microcytosis Cancelled 03/08/18 12:34 Macrocytosis Cancelled 03/08/18 12:34 Spherocytes Cancelled 03/08/18 12:34 Target Cells Cancelled 03/08/18 12:34 Tear Drop Cells Cancelled 03/08/18 12:34 Ovalocytes Cancelled 03/08/18 12:34 Stomatocytes Cancelled 03/08/18 12:34 [place] Bodies Cancelled 03/08/18 12:34 [place] Cells Cancelled 03/08/18 12:34 Acanthocytes (Spur) Cancelled 03/08/18 12:34 Schistocytes Cancelled 03/08/18 12:34 Sodium 145 mmol/L (136-145) 03/12/18 06:50 Potassium 4.5 mmol/L (3.5-5.1) D 03/12/18 06:50 Chloride 108 mmol/L (98-107) H 03/12/18 06:50 Carbon Dioxide 29.9 mmol/L (21.0-32.0) 03/12/18 06:50 Anion Gap 7.1 mmol/L (3-11) 03/12/18 06:50 BUN 20 mg/dL (7-18) H 03/12/18 06:50 Creatinine 0.65 mg/dL (0.55-1.02) 03/12/18 06:50 Estimated GFR/1.73 m2 >= 60.00 (mL/min/1.73m2) 03/12/18 06:50 Glucose 129 mg/dL (70-100) H 03/12/18 06:50 Lactate 1.3 mmol/L (0.6-1.4) 03/08/18 09:50 Calcium 8.8 mg/dL (8.5-10.1) 03/12/18 06:50 Magnesium 2.3 mg/dL (1.8-2.4) 03/12/18 06:50 Total Bilirubin 0.5 mg/dL (0.2-1.0) 03/08/18 09:50 Conjugated Bilirubin 0.20 mg/dL (0.00-0.20) 03/08/18 09:50 AST 20 U/L (15-37) 03/08/18 09:50 ALT 28 U/L (12-78) 03/08/18 09:50 Alkaline Phosphatase 114 U/L (46-116) 03/08/18 09:50 Creatine Kinase 25 U/L (26-192) L 03/08/18 09:50 Troponin I < 0.02 ng/mL (0.00-0.06) 03/08/18 09:50 NT-Pro-B Natriuret Pep Cancelled 03/08/18 12:31 Total Protein 7.8 g/dL (6.4-8.2) 03/08/18 09:50 Albumin 3.6 g/dL (3.4-5.0) 03/08/18 09:50 Urine Color Yellow (Yellow) 03/12/18 11:56 Urine Clarity Clear 03/12/18 11:56 Urine pH 7.5 (5-8) 03/12/18 11:56 Ur Specific [place] 1.020 (1.005-1.025) 03/12/18 11:56 Urine Protein Trace mg/dL (Negative) H 03/12/18 11:56 Urine Ketones Negative mg/dL (Negative) 03/12/18 11:56 Urine Blood Negative (Negative) 03/12/18 11:56 Urine Nitrite Negative (Negative) 03/12/18 11:56 Urine Bilirubin Negative (Negative) 03/12/18 11:56 Urine Urobilinogen 0.2 EU/dL (Up TO 0.2) 03/12/18 11:56 Ur Leukocyte Esterase Negative (Negative) 03/12/18 11:56 Urine RBC 0-2 (0-2) 03/12/18 11:56 Urine WBC 0-2 HPF (0-5) 03/12/18 11:56 Ur Epithelial Cells Rare HPF (Negative) 03/12/18 11:56 Urine Crystals Negative HPF (Negative) 03/12/18 11:56 Urine Bacteria Negative HPF (Negative) 03/12/18 11:56 Urine Casts Negative LPF (Negative) 03/12/18 11:56 Urine Mucus Trace (Negative) 03/12/18 11:56 Urine Other Few yeast (Negative) 03/12/18 11:56 Ur Culture Indicated? Yes 03/12/18 11:56 Urine Glucose Negative mg/dL (Negative) 03/12/18 11:56 Vancomycin Trough 19.5 ug/mL (10.0-20.0) 03/09/18 15:08 C.difficile Tox Ab Neut Cancelled 03/12/18 16:31 Patient ABO/Rh Cancelled 03/08/18 12:31
[2018-03-13 15:47] VITALS: BP 116/69; PULSE 65; RESP 20; TEMP 35.8; O2SAT 94
[2018-03-13] MEDS: Hydrocortisone 1% CR 30 GM TUBE TP (20:26)
[2018-03-13] MEDS: Nystatin POWDER 60 GM JAR TP (20:27)
[2018-03-14 00:10] VITALS: BP 113/58; PULSE 77; RESP 20; TEMP 36.3; O2SAT 95
[2018-03-14 07:30] VITALS: BP 126/71; PULSE 71; RESP 16; TEMP 36.7; O2SAT 93
[2018-03-14] MEDS: Hydrocortisone 1% CR 30 GM TUBE TP (07:59)
[2018-03-14] MEDS: rOPINIRole 0.5 MG TAB 0.25 MG NG (07:59)
[2018-03-14] MEDS: Propranolol 40 MG TAB NG (08:00)
[2018-03-14] MEDS: Normal Saline Flush 10 ML SYR IVP (08:00)
[2018-03-14] MEDS: Omeprazole 20 MG CAPCR NG (08:00)
[2018-03-14] MEDS: FLUoxetine 20 MG CAP PO (08:00)
[2018-03-14] MEDS: CARBIDOPA LEVODOPA 1 EACH PEG (08:01)
[2018-03-14 09:14] LABS: Prealbumin 20 mg/dL (20-40); Transferrin 193 mg/dL (201-352)
--- NOTE | 2018-03-14 10:50 | NT_ITS ---
Date of service: 03/14/18 Time of Service: 10:49 PT Notes PHYSICAL THERAPY NOTE 03/14/18 PT consult received, chart reviewed, eval witheld as patient is being discharged back to [facility] today. Recommend resume PT in that setting. Blanca Akhtar PT
[2018-03-14 11:06] LABS: Campylobacter PCR SEE COMMENTS; Salmonella PCR SEE COMMENTS; Shiga Toxin PCR SEE COMMENTS; Shigella/Enteroinvasive Ecoli SEE COMMENTS
--- NOTE | 2018-03-14 11:47 | W.PM.DS.N ---
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 (11) Dehydration: Status: Resolved (12) Hypoxia: Status: Acute (13) Seizure: Status: Resolved (14) NMS (neuroleptic malignant syndrome): Status: Resolved (15) Essential hypertension: Status: Chronic (16) History of DIC syndrome: Status: Resolved (17) Toxic metabolic encephalopathy: Status: Resolved (18) UTI (urinary tract infection): Status: Resolved (19) Dysphagia: Status: Chronic (20) Encephalopathy acute: Status: Resolved (21) Nasal bone fracture: Status: Resolved (22) Fall: Status: Chronic (23) Pneumonia: Status: Resolved (24) Anemia: Status: Chronic (25) Acute kidney injury: Status: Resolved (26) Secondary rhabdomyolysis: Status: Resolved (27) Non-ST elevation [place] (NSTEMI): Status: Resolved Discharge Plan Disposition Patient Disposition: SNF (LEVEL 1) [facility] Condition: Critical Discharge Details Reason For Visit: UTI Admit Date/Time: 03/08/18 11:52 Admit Provider: Dick Nicole Attending Provider: Dick Nicole Primary Care Provider: Barbara Almaguer [facility] Hospital Course: 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 Ms. So has had multiple recent admissions. She was admitted in September after an aspiration event that needed intubation. In December she was admitted here and then transferred to a Tertiary Center for sepsis and bacteremia, DIC, JOSEPH, Rhabdomyolysis, Neuroleptic Malignant Syndrome with concurrent seizure activity, and NSTEMI in the setting of demand. In January she was admitted for an elective PEG Tube placement due to failure to thrive, and underwent a rather lengthy hospital course with an acute hypoxic respiratory failure and brief cardiac arrest secondary to an inadvertant intubation of the right maintstem bronchus, UTI, abnormal ECG requiring nuclear stress testing which was ultimately interpreted as negative for ischemia, and eventual successful initiation of Tube Feeds. She was also cleared for a modified diet by Speech therapy at that time. However, earlier this month she had another witnessed episode of aspiration that required hospitalization, and treatment for likely pneumonia. The patient was discharged back to [facility] following her last hospitalization, but presented to the ED on the night prior to her admission with reported hypoxia. However, work-up in the emergency department was without any significant abnormality, and sats were actually appropriate when checked by ear probe - patient with significant tremor from underlying PD with finger probe showing poor yield. Work-up was fairly benign, including labs and CXR, and the patient's hypoxia was thought likely secondary to an erroneous read. She was transitioned back to the nursing facility. However, she presents back to the ED on 03/08/18 with reported change in mental status and fever. Patient was noted to be febrile in the emergency department, with rigors and a change in mental status. Work-up in the emergency room included an unremarkable CXR, lack of leukocytosis, and normal lactate and renal function. She appeared dehydrated clinically and by labs. Note was made by the ED attending of pyuria with attempted marks cath, and urinalysis shows 20-50 WBCs per HPF, but with negative Leukocyte Esterase and Nitrite. Blood and Urine Cultures were taken. Given Patient's elevated temperature, RR, HR, and altered mental status she is under treatment for presumptive diagnosis of Sepsis. She was admitted to the ICU initially and started on broad spectrum antibiotics including Vanco and Meropenem. Her blood cultures remained negative at 120 hours. Her urine culture grew only strep viridans, 10-50,000 colonies and yeast, 10-50,000 colonies. Her antibiotics were stepped down to Zosyn and she transitioned out of the ICU to the med/surg floor. There was continued concern regarding potential aspiration as the most likely etiology of her septic syndrome even in the setting of negative imaging. She was seen by nutrition and trialed on bolus feeds, rather than continuous. She has tolerated the bolus feedings well. She continues to request oral intake. She has been NPO except for ice chips throughout her stay. She may benefit from a palliative consult to discuss goals of care and quality of life. She will also need to follow up with speech therapy at [facility] rehab. She also experienced some intermittent diarrhea. She has had no diarrhea on the day of discharge. She did have C. difficile screening which was negative. The PCR for C. difficile is pending. This will need to be followed up on after her discharge. Improvement is noted after she continued the course of antibiotics, which may have been the cause of her diarrhea. However, if the C. difficile PCR is negative, and the diarrhea continues, this may be related to tube feedings and she may need to have her feedings adjusted accordingly. On the day prior to her discharge, she was noted to have a maculopapular rash on her back, over her buttocks, and down the posterior aspect of her legs to approximately her knees. Appears to be possible heat rash. She was started on steroid cream, hydrocortisone, with antifungal powder. If no improvement over the few days following discharge, consider stepping up steroid cream. She is discharged back to [facility] in improved condition today. Home Meds and New Rx's Prescriptions: New hydrocortisone 1 % Cream 1 g Topical TID Qty: 0 RF: 0 nystatin 100,000 unit/gram Powder Topical BID Qty: 0 RF: 0 Continue baclofen 10 MG tablet 10 mg Feeding Tube HS prn Qty: 30 RF: 0 acetaminophen [Tylenol] 325 MG tablet 650 mg Feeding Tube Q4H PRN PRNRF: 0 fluoxetine 20 MG capsule 20 mg PO DAILY RF: 0 carbidopa-levodopa [Rytary] 1 EACH capsule, extended release 1 ea TID RF: 0 propranolol 40 MG tablet 40 mg Feeding Tube DAILY RF: 0 amantadine HCl 100 MG tablet 200 mg Feeding Tube BID RF: 0 polyethylene glycol 3350 17 GM powder in packet 17 gm Feeding Tube DAILY PRNRF: 0 melatonin 3 MG tablet 3 mg Feeding Tube HS PRNRF: 0 magnesium hydroxide [Milk of Magnesia] 30 ML suspension 30 mg PO HS PRNRF: 0 bisacodyl 10 MG suppository 1 supp AL PRN PRNRF: 0 calcium carbonate 500 MG tablet,chewable 1 tab Feeding Tube .Q6H, PRN PRNRF: 0 sodium phosphates [Fleet Enema] 118 ML enema 1 btl AL PRN PRNRF: 0 docusate sodium 100 MG capsule 100 mg BID PRNRF: 0 ondansetron HCl [Zofran] 4 mg Tablet 4 mg Feeding Tube Q6H PRN PRNRF: 0 omeprazole 20 mg Capsule,Delayed Release(Dr/Ec) 20 mg Feeding Tube DAILY RF: 0 ropinirole [Requip] 0.25 MG tablet 0.25 mg Feeding Tube TID RF: 0 acetaminophen 650 mg Suppository 650 mg AL Q4H PRN PRNRF: 0 bisacodyl [Dulcolax (bisacodyl)] 10 mg Suppository 1 supp AL PRN PRNRF: 0 naproxen sodium 220 mg Tablet 440 mg Feeding Tube BID RF: 0 lactose-reduced food with fibr [Jevity 1.2 Kamlesh] 0.06 gram-1.2 kcal/mL Liquid 1 Feeding Tube TID RF: 0 Discontinued lorazepam 0.5 mg Tablet 0.25 mg Feeding Tube ONCE RF: 0 Discharge Instructions Instructions: Sepsis (GEN) Activity:: Activity as Tolerated Equipment/Supplies:: No Equipment Needed Diet:: NPO except ice chips, continue bolus tube feedings per nutrition recommendations. Discharge Orders Discharge Orders: Discharge Order (Routine); Ordered 03/14/18 Ordered By: Zita Mock Exam Narrative Exam Narrative: General: Pleasant and cooperative female, in no acute distress, appears thin and frail, parkinsonian. Awake, alert and oriented x3. Answers questions appropriately. HEENT: Normocephalic and atraumatic. Mucous membranes moist. Neck: Supple, no JVD. Respiratory: Respirations even and unlabored, lung sounds clear to auscultation throughout. Cardiovascular: Heart has regular rate and rhythm, no murmur appreciated. GI: Abdomen soft, nontender on palpation, no masses, normoactive bowel sounds throughout. Skin: She has a diffuse maculopapular rash down her back, over her buttocks and down posterior legs bilaterally to her knees. Extremities: Well perfused, no clubbing, cyanosis or edema. DS: Data Vitals/I&O Vitals and I&O: Vital Signs Temperature 36.7 C 03/14/18 07:30 Temperature Source Tympanic 03/14/18 07:30 Pulse 71 03/14/18 07:30 Pulse Rhythm Regular 03/14/18 01:33 Pulse 67 03/10/18 09:00 Respiratory Rate 16 03/14/18 07:30 Respiratory Effort 03/14/18 01:33 Respiratory Depth Normal 03/14/18 01:33 Respiratory Pattern Normal 03/14/18 01:33 Blood Pressure 126/71 03/14/18 07:30 Blood Pressure Mean 89 03/10/18 15:41 Blood Pressure Position Supine 03/10/18 07:30 Pulse Oximetry 93 L 03/14/18 07:30 Oxygen Delivery Method Room Air 03/14/18 07:30 Oxygen Flow Rate 0 03/14/18 07:30 Pain Level 0 03/12/18 07:30 Comment 03/09/18 13:00 Intake & Output 03/13/18 03/13/18 03/14/18 11:59 23:59 11:59 Intake Total 450 / 450 1220 / 1220 60 / 60 Output Total 1200 / 1200 949 / 949 550 / 550 Balance -750 / -750 271 / 271 -490 / -490 Weight 47.9 kg 48.9 kg Intake: IV 50 / 50 Oral 60 / 60 60 / 60 Intake, Tube Feeding Amount 390 / 390 1170 / 1170 Output: Urine 1200 / 1200 910 / 910 550 / 550 Output, Residual 0 / 0 39 / 39 Other: Urine Color Yellow Yellow Yellow Urine Appearance Clear Clear Clear Urine Odor Strong Comment urine is flowing through marks tube but bed was saturated with urine. balloon deflated and marks inserted further and balloon reinflated Stool Size Moderate Large Stool Characteristics Liquid Liquid Brown Voiding Methods Incontinent Incontinent Indwelling Catheter Completed studies during hospitalization [Text1]: 03/08/2018: AP AND LATERAL CHEST: The heart is normal in size. The lungs are clear. The mediastinal structures and pleura appear intact. CONCLUSION: Normal chest. CRANIAL CT: Image degradation by patient motion is noted. There is moderate cortical atrophy. There is no evidence of a hemorrhage or mass. Ventricular dilatation is unchanged when compared with prior images. 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 There is no skull fracture. No evidence of sinusitis or a mastoid effusion. SUMMARY: No interval change. No acute abnormality. No evidence of an acute intracranial abnormality. Labs on day of discharge: Labs from last 24 hours 03/13/18 14:30 Stool Campylobacter PCR Pending Stool Salmonella PCR Pending Stool Shigella PCR Pending Shiga Toxin (PCR) Pending
--- NOTE | 2018-03-14 11:53 | CMDISCH_ITS ---
- If Service Date Differs Date of service: 03/14/18 Time of Service: 11:51 LACE Index Scoring Tool - Questions: Length of Stay (in days): 4 - 6 Acuity (Admit via E.D.?): Yes E.D. Visits: 7 - Answers: Total Score: 11 Risk of Readmission: High Risk Care Management Discharge Reason for Hospitalization: Sepsis syndrome Discharge Plan: Jaylyn will return to [facility] today. MEAGHAN spoke with [facility], and he has arranged for w/c van transport at 1330. MEAGHAN notified Zita MANUFACTURING INSPECTOR , and Magda, Inspector, of time and mode of transport. SNF forms are on the front of the chart for completion. Patient/Family Education Needs: Review DC instructions, any limitations, and discuss 'Ask Me Three' Services Needed at Discharge: Correction Facility ([facility]), Transportation ([facility] w/c van.)
--- NOTE | 2018-03-14 12:11 | DSE_ITS ---
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 (11) Dehydration: Status: Resolved (12) Hypoxia: Status: Acute (13) Seizure: Status: Resolved (14) NMS (neuroleptic malignant syndrome): Status: Resolved (15) Essential hypertension: Status: Chronic (16) History of DIC syndrome: Status: Resolved (17) Toxic metabolic encephalopathy: Status: Resolved (18) UTI (urinary tract infection): Status: Resolved (19) Dysphagia: Status: Chronic (20) Encephalopathy acute: Status: Resolved (21) Nasal bone fracture: Status: Resolved (22) Fall: Status: Chronic (23) Pneumonia: Status: Resolved (24) Anemia: Status: Chronic (25) Acute kidney injury: Status: Resolved (26) Secondary rhabdomyolysis: Status: Resolved (27) Non-ST elevation SD (NSTEMI): Status: Resolved Discharge Plan Disposition Patient Disposition: SNF (LEVEL 1) [facility] Condition: Critical Discharge Details Reason For Visit: UTI Admit Date/Time: 03/08/18 11:52 Admit Provider: Dick Nicole Attending Provider: Dick Nicole Primary Care Provider: Barbara Almaguer [place] [facility] Course Hospital Course: 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 Ms. So has had multiple recent admissions. She was admitted in September after an aspiration event that needed intubation. In December she was admitted here and then transferred to a Tertiary Center for sepsis and bacteremia, DIC, JOSEPH, Rhabdomyolysis, Neuroleptic Malignant Syndrome with concurrent seizure activity , and NSTEMI in the setting of demand. In January she was admitted for an elective PEG Tube placement due to failure to thrive, and underwent a rather lengthy hospital course with an acute hypoxic respiratory failure and brief cardiac arrest secondary to an inadvertant intubation of the right maintstem bronchus, UTI, abnormal ECG requiring nuclear stress testing which was ultimately interpreted as negative for ischemia, and eventual successful initiation of Tube Feeds. She was also cleared for a modified diet by Speech therapy at that time. However, earlier this month she had another witnessed episode of aspiration that required hospitalization, and treatment for likely pneumonia. The patient was discharged back to [facility] following her last hospitalization, but presented to the ED on the night prior to her admission with reported hypoxia. However, work-up in the emergency department was without any significant abnormality, and sats were actually appropriate when checked by ear probe - patient with significant tremor from underlying PD with finger probe showing poor yield. Work-up was fairly benign, including labs and CXR, and the patient's hypoxia was thought likely secondary to an erroneous read. She was transitioned back to the nursing facility. However, she presents back to the ED on 03/08/18 with reported change in mental status and fever. Patient was noted to be febrile in the emergency department, with rigors and a change in mental status. Work-up in the emergency room included an unremarkable CXR, lack of leukocytosis, and normal lactate and renal function. She appeared dehydrated clinically and by labs. Note was made by the ED attending of pyuria with attempted marks cath, and urinalysis shows 20-50 WBCs per HPF, but with negative Leukocyte Esterase and Nitrite. Blood and Urine Cultures were taken. Given Patient's elevated temperature, RR, HR, and altered mental status she is under treatment for presumptive diagnosis of Sepsis. She was admitted to the ICU initially and started on broad spectrum antibiotics including Vanco and Meropenem. Her blood cultures remained negative at 120 hours. Her urine culture grew only strep viridans, 10-50,000 colonies and yeast, 10-50,000 colonies. Her antibiotics were stepped down to Zosyn and she transitioned out of the ICU to the med/surg floor. There was continued concern regarding potential aspiration as the most likely etiology of her septic syndrome even in the setting of negative imaging. She was seen by nutrition and trialed on bolus feeds, rather than continuous. She has tolerated the bolus feedings well. She continues to request oral intake. She has been NPO except for ice chips throughout her stay. She may benefit from a palliative consult to discuss goals of care and quality of life. She will also need to follow up with speech therapy at [facility] re[facility]. She also experienced some intermittent diarrhea. She has had no diarrhea on the day of discharge. She did have C. difficile screening which was negative. The PCR for C. difficile is pending. This will need to be followed up on after her discharge. Improvement is noted after she continued the course of antibiotics, which may have been the cause of her diarrhea. However, if the C. difficile PCR is negative, and the diarrhea continues, this may be related to tube feedings and she may need to have her feedings adjusted accordingly. On the day prior to her discharge, she was noted to have a maculopapular rash on her back, over her buttocks, and down the posterior aspect of her legs to approximately her knees. Appears to be possible heat rash. She was started on steroid cream, hydrocortisone, with antifungal powder. If no improvement over the few days following discharge, consider stepping up steroid cream. She is discharged back to [facility] in improved condition today. Home Meds and New Rx's Prescriptions: New hydrocortisone 1 % Cream 1 g Topical TID Qty: 0 RF: 0 nystatin 100,000 unit/gram Powder Topical BID Qty: 0 RF: 0 Continue baclofen 10 MG tablet 10 mg Feeding Tube HS prn Qty: 30 RF: 0 acetaminophen [Tylenol] 325 MG tablet 650 mg Feeding Tube Q4H PRN PRNRF: 0 fluoxetine 20 MG capsule 20 mg PO DAILY RF: 0 carbidopa-levodopa [Rytary] 1 EACH capsule, extended release 1 ea TID RF: 0 propranolol 40 MG tablet 40 mg Feeding Tube DAILY RF: 0 amantadine HCl 100 MG tablet 200 mg Feeding Tube BID RF: 0 polyethylene glycol 3350 17 GM powder in packet 17 gm Feeding Tube DAILY PRNRF: 0 melatonin 3 MG tablet 3 mg Feeding Tube HS PRNRF: 0 magnesium hydroxide [Milk of Magnesia] 30 ML suspension 30 mg PO HS PRNRF: 0 bisacodyl 10 MG suppository 1 supp AR PRN PRNRF: 0 calcium carbonate 500 MG tablet,chewable 1 tab Feeding Tube .Q6H, PRN PRNRF: 0 sodium phosphates [Fleet Enema] 118 ML enema 1 btl AR PRN PRNRF: 0 docusate sodium 100 MG capsule 100 mg BID PRNRF: 0 ondansetron HCl [Zofran] 4 mg Tablet 4 mg Feeding Tube Q6H PRN PRNRF: 0 omeprazole 20 mg Capsule,Delayed Release(Dr/Ec) 20 mg Feeding Tube DAILY RF: 0 ropinirole [Requip] 0.25 MG tablet 0.25 mg Feeding Tube TID RF: 0 acetaminophen 650 mg Suppository 650 mg AR Q4H PRN PRNRF: 0 bisacodyl [Dulcolax (bisacodyl)] 10 mg Suppository 1 supp AR PRN PRNRF: 0 naproxen sodium 220 mg Tablet 440 mg Feeding Tube BID RF: 0 lactose-reduced food with fibr [Jevity 1.2 Kamlesh] 0.06 gram-1.2 kcal/mL Liquid 1 Feeding Tube TID RF: 0 Discontinued lorazepam 0.5 mg Tablet 0.25 mg Feeding Tube ONCE RF: 0 Discharge Instructions Instructions: Sepsis (GEN) Activity:: Activity as Tolerated Equipment/Supplies:: No Equipment Needed Diet:: NPO except ice chips, continue bolus tube feedings per nutrition recommendations. Discharge Orders Discharge Orders: Discharge Order (Routine); Ordered 03/14/18 Ordered By: Zita Mock Exam Narrative Exam Narrative: General: Pleasant and cooperative female, in no acute distress, appears thin and frail, parkinsonian. Awake, alert and oriented x3. Answers questions appropriately. HEENT: Normocephalic and atraumatic. Mucous membranes moist. Neck: Supple, no JVD. Respiratory: Respirations even and unlabored, lung sounds clear to auscultation throughout. Cardiovascular: Heart has regular rate and rhythm, no murmur appreciated. GI: Abdomen soft, nontender on palpation, no masses, normoactive bowel sounds throughout. Skin: She has a diffuse maculopapular rash down her back, over her buttocks and down posterior legs bilaterally to her knees. Extremities: Well perfused, no clubbing, cyanosis or edema. DS: Data Vitals/I&O Vitals and I&O: Vital Signs Temperature 36.7 C 03/14/18 07:30 Temperature Source Tympanic 03/14/18 07:30 Pulse 71 03/14/18 07:30 Pulse Rhythm Regular 03/14/18 01:33 Pulse 67 03/10/18 09:00 Respiratory Rate 16 03/14/18 07:30 Respiratory Effort 03/14/18 01:33 Respiratory Depth Normal 03/14/18 01:33 Respiratory Pattern Normal 03/14/18 01:33 Blood Pressure 126/71 03/14/18 07:30 Blood Pressure Mean 89 03/10/18 15:41 Blood Pressure Position Supine 03/10/18 07:30 Pulse Oximetry 93 L 03/14/18 07:30 Oxygen Delivery Method Room Air 03/14/18 07:30 Oxygen Flow Rate 0 03/14/18 07:30 Pain Level 0 03/12/18 07:30 Comment 03/09/18 13:00 Intake & Output 03/13/18 03/13/18 03/14/18 11:59 23:59 11:59 Intake Total 450 / 450 1220 / 1220 60 / 60 Output Total 1200 / 1200 949 / 949 550 / 550 Balance -750 / -750 271 / 271 -490 / -490 Weight 47.9 kg 48.9 kg Intake: IV 50 / 50 Oral 60 / 60 60 / 60 Intake, Tube Feeding Amount 390 / 390 1170 / 1170 Output: Urine 1200 / 1200 910 / 910 550 / 550 Output, Residual 0 / 0 39 / 39 Other: Urine Color Yellow Yellow Yellow Urine Appearance Clear Clear Clear Urine Odor Strong Comment urine is flowing through marks tube but bed was saturated with urine. balloon deflated and marks inserted further and balloon reinflated Stool Size Moderate Large Stool Characteristics Liquid Liquid Brown Voiding Methods Incontinent Incontinent Indwelling Catheter Completed studies during hospitalization [Text1]: 03/08/2018: AP AND LATERAL CHEST: The heart is normal in size. The lungs are clear. The mediastinal structures and pleura appear intact. CONCLUSION: Normal chest. CRANIAL CT: Image degradation by patient motion is noted. There is moderate cortical atrophy. There is no evidence of a hemorrhage or mass. Ventricular dilatation is unchanged when compared with prior images. 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 There is no skull fracture. No evidence of sinusitis or a mastoid effusion. SUMMARY: No interval change. No acute abnormality. No evidence of an acute intracranial abnormality. Labs on day of discharge: Labs from last 24 hours 03/13/18 14:30 Stool Campylobacter PCR Pending Stool Salmonella PCR Pending Stool Shigella PCR Pending Shiga Toxin (PCR) Pending
[2018-03-14] MEDS: Enoxaparin 40 MG/0.4 ML SYR SC (12:22)
[2018-03-14] MEDS: Nystatin POWDER 60 GM JAR TP (13:11)
== END 2018-03-14 13:43 | disposition skilled nursing facility (03) | DRG 872 ==
LOC: ER 13:02 → ICU 13:08 → MS 03-10 22:18
PROVIDERS: Internal Medicine; Nurse Practitioner Acute Care; Admitting Provider Internal Medicine; Emergency Provider Student in an Organized Health Care Education/Training Program; PCP Nurse Practitioner Family; Visit Provider Internal Medicine
DX: A41.9 Sepsis, unspecified organism (principal); N39.0 Urinary tract infection, site not specified; E87.0 Hyperosmolality and hypernatremia; R41.82 Altered mental status, unspecified; G20 Parkinson's disease; E86.0 Dehydration; R62.7 Adult failure to thrive; R13.10 Dysphagia, unspecified; K94.29 Other complications of gastrostomy; D63.8 Anemia in other chronic diseases classified elsewhere; L74.0 Miliaria rubra; L89.151 Pressure ulcer of sacral region, stage 1; L89.152 Pressure ulcer of sacral region, stage 2
CPT/HCPCS: 36415; 80048; 80053; 80076; 82550; 85027; 86900; 86901; 87040; 87077; 87081; 87505; 96361; 96365; 99223; 99232; 99233; 99239; 99285; J1650; 70450; 71046; 80202; 81003; 81015; 83605; 83630; 83735; 83880; 84134; 84295; 84466; 84484; 85025; 87086; 87230; 87324; J0131; J0696; J2543; J3490

== ENCOUNTER 2018-03-30 11:03 | Emergency (ER) | payer MEDICARE, MEDICAID, SELFPAY ==
[2018-03-30] VITALS (19 sets, daily range): BP systolic 99–146; BP diastolic 27–78; PULSE 52–156; RESP 16–24; TEMP 36.7–37.1; O2SAT 92–99
--- NOTE | 2018-03-30 11:14 | W.ED.GENAD ---
Discharge Plan Disposition Patient Disposition: SNF (LEVEL 1) [facility] Condition: Stable Discharge Details Chief Complaint: Fever Clinical Impression: Aspiration into airway Reason For Visit: AURA Primary Care Provider: Barbara Almaguer ED Provider: Brennon Hahn [place] Meds and New Rx's Prescriptions: No Action baclofen 10 MG tablet 10 mg Feeding Tube HS prn Qty: 30 RF: 0 acetaminophen [Tylenol] 325 MG tablet 650 mg Feeding Tube Q4H PRN PRNRF: 0 fluoxetine 20 MG capsule 20 mg PO DAILY RF: 0 carbidopa-levodopa [Rytary] 1 EACH capsule, extended release 1 ea TID RF: 0 propranolol 40 MG tablet 40 mg Feeding Tube DAILY RF: 0 amantadine HCl 100 MG tablet 200 mg Feeding Tube BID RF: 0 polyethylene glycol 3350 17 GM powder in packet 17 gm Feeding Tube DAILY PRNRF: 0 melatonin 3 MG tablet 3 mg Feeding Tube HS PRNRF: 0 magnesium hydroxide [Milk of Magnesia] 30 ML suspension 30 mg PO HS PRNRF: 0 calcium carbonate 500 MG tablet,chewable 1 tab Feeding Tube .Q6H, PRN PRNRF: 0 sodium phosphates [Fleet Enema] 118 ML enema 1 btl [place] PRN PRNRF: 0 docusate sodium 100 MG capsule 100 mg BID PRNRF: 0 ondansetron HCl [Zofran] 4 mg Tablet 4 mg Feeding Tube Q6H PRN PRNRF: 0 omeprazole 20 mg Capsule,Delayed Release(Dr/Ec) 20 mg Feeding Tube DAILY RF: 0 ropinirole [Requip] 0.25 MG tablet 0.25 mg Feeding Tube TID RF: 0 acetaminophen 650 mg Suppository 650 mg AK Q4H PRN PRNRF: 0 bisacodyl [Dulcolax (bisacodyl)] 10 mg Suppository 1 supp AK PRN PRNRF: 0 naproxen sodium 220 mg Tablet 440 mg Feeding Tube BID RF: 0 lactose-reduced food with fibr [Jevity 1.2 Kamlesh] 0.06 gram-1.2 kcal/mL Liquid 1 Feeding Tube TID RF: 0 nystatin 100,000 unit/gram Powder Topical BID Qty: 0 RF: 0 Medical Decision Making 52 yo female with hx of parkinson's who is bed bound and resides at [facility] and rehab comes in with cough, hypoxia per their report and altered mental status (yelling at people in the hallway and neighbors). She gets frequent pneumonias and they were concerned of this so sent her here. On room air here she is 95% and seems to be at her baseline. Will eval for pna and influenza and monitor. pt is currently caox4 and refusing lab work or imaging. Spoke with her POWER ORIGINATOR at rehab who is going to send her nurse over to try and calm her and allow her to draw labs pt is now allowing xray and labs, will order this, still no tachycardia, hypotension or hypoxia. Xray negative and labs show no acute findings, remains hd stable. Spoke with her POWER ORIGINATOR at rehab who asked a dose of levofloxacin be given here and IV to remain in place for continued abx if needed at rehab. Differential Diagnosis pna, uri, influenza Imaging Data Radiologic Study: Attestation: I personally reviewed and interpreted this imaging study as follows: Imaging: X-Ray My impression: no acute findings Lab Data Lab results reviewed: Yes I reviewed the patient's lab results. HPI General Mode of arrival: ambulatory. Date/Time Provider Initiated Documentation: 03/30/18 11:09. Limitations to Documentation: no limitations. Information obtained by: patient. History of Present Illness 52 year old F presents to the emergency department with the chief complaint of cough, described as moderate, with intensity rated at 4. Quality is described as aching, No relieving factors improve symptom(s), No exacerbating factors reported . Patient did receive the following treatments prior to arrival, none Related Data Home Medications Medication Instructions Recorded Confirmed baclofen 10 mg FEEDING TUBE HS prn #30 07/25/16 03/30/18 tab-cap amantadine HCl 200 mg FEEDING TUBE BID 08/15/16 03/30/18 acetaminophen [Tylenol] 650 mg FEEDING TUBE Q4H PRN PRN 11/15/16 03/30/18 tab-cap fluoxetine 20 mg PO DAILY tab-cap 11/15/16 03/30/18 polyethylene glycol 3350 17 gm FEEDING TUBE DAILY PRN 08/15/17 03/30/18 carbidopa-levodopa [Rytary] 1 ea TID 08/30/17 03/08/18 propranolol 40 mg FEEDING TUBE DAILY 12/25/17 03/30/18 calcium carbonate 1 tab FEEDING TUBE .Q6H, PRN PRN 01/04/18 03/30/18 docusate sodium 100 mg BID PRN 01/04/18 03/30/18 magnesium hydroxide [Milk of 30 mg PO HS PRN 01/04/18 03/30/18 Magnesia] melatonin 3 mg FEEDING TUBE HS PRN 01/04/18 03/30/18 sodium phosphates [Fleet Enema] 1 btl AK PRN PRN 01/04/18 03/30/18 ondansetron HCl [Zofran] 4 mg FEEDING TUBE Q6H PRN PRN 02/06/18 03/30/18 omeprazole 20 mg FEEDING TUBE DAILY 02/22/18 03/30/18 ropinirole [Requip] 0.25 mg FEEDING TUBE TID 03/07/18 03/30/18 acetaminophen 650 mg AK Q4H PRN PRN 03/08/18 03/30/18 bisacodyl [Dulcolax (bisacodyl)] 1 supp AK PRN PRN 03/08/18 03/30/18 lactose-reduced food with fibr 1 FEEDING TUBE TID 03/08/18 [Jevity 1.2 Kamlesh] naproxen sodium 440 mg FEEDING TUBE BID 03/08/18 03/30/18 nystatin 0 g TOPICAL BID #0 g 03/14/18 Previous Rx's Medication Instructions Recorded nystatin 0 g TOPICAL BID #0 g 03/14/18 Allergies Allergy/AdvReac Type Severity Reaction Status Date / Time environmental Allergy Uncoded 03/30/18 11:16 General Stated Complaint: Fever SHAWN: 2 Review of Systems Review of Systems All systems reviewed & are unremarkable except as noted in HPI and below Constitutional Denies weakness Eyes Denies loss of vision ENT Denies change in voice Cardiovascular Denies chest pain and Denies dyspnea Respiratory Denies dyspnea Gastrointestinal Denies abdominal pain, Denies nausea and Denies vomiting Genitourinary Denies dysuria Musculoskeletal Denies joint swelling Integumentary/Breasts Denies rash Neurologic Denies loss of vision and Denies weakness Psychiatric Denies depression Endocrine Denies cold intolerance and Denies heat intolerance Allergic/Immunologic Denies urticaria PFSH Family History Mother AMI (acute myocardial infarction) Father AMI (acute myocardial infarction) Medical History 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) Ambulatory dysfunction (Chronic) Recurrent aspiration events (Chronic) Failure to thrive (Chronic) PEG (percutaneous endoscopic gastrostomy) adjustment/replacement/removal (Chronic) Seizure (Resolved) NMS (neuroleptic malignant syndrome) (Resolved) Abnormal EKG (Resolved) Hyperlipidemia type III (Chronic) Anemia (Chronic) History of DIC syndrome (Resolved) Toxic metabolic encephalopathy (Resolved) UTI (urinary tract infection) (Resolved) Dysphagia (Chronic) Encephalopathy acute (Resolved) Fall (Chronic) Acute respiratory failure with hypoxia (Resolved) Pneumonia (Resolved) Anemia (Chronic) Acute kidney injury (Resolved) Parkinsons disease (Chronic) Secondary rhabdomyolysis (Resolved) Non-ST elevation IN (NSTEMI) (Resolved) Essential hypertension (Chronic) Hyperlipidemia (Chronic) Obesity (Chronic) Osteoarthritis (Chronic) Parkinson's disease (Chronic) Social History lives independently: No number of children: 2 number of grandchildren: 1 Smoking/Tobacco Use Status: Never alcohol intake: never substance use type: does not use Surgical History History of vaginal hysterectomy (Resolved) Exam Const General: no acute distress Orientation: alert HENMT Head: normal to inspection Ears: external ears normal General nose exam: external nose normal Mouth: moist mucous membranes Eyes General: appearance normal, both eyes and all related structures Neck Neck: normal visual inspection Resp Effort & Inspection: normal respiratory effort and able to speak in complete sentences Cardio Rate: regular rate Skin General skin exam: no rashes or lesions noted Neuro General: alert and oriented x3 Extrem General: normal to inspection Psych Mental Status: mental status grossly normal Course Vital Signs Temperature 36.7 C 03/30/18 11:08 Pulse 52 L 03/30/18 11:08 Respiratory Rate 19 03/30/18 11:08 Blood Pressure 104/27 L 03/30/18 11:08 Pulse Oximetry 97 03/30/18 11:08 Temperature 36.7 C 03/30/18 11:08 Temperature Source Skin 03/30/18 11:08 Pulse 52 L 03/30/18 11:08 Respiratory Rate 19 03/30/18 11:08 Blood Pressure 104/27 L 03/30/18 11:08 Pulse Oximetry 97 03/30/18 11:08 Oxygen Delivery Method Room Air 03/30/18 11:08 Oxygen Flow Rate 0 03/30/18 11:08 Lab/Test Results Lab/Test Results: 03/30/18 11:11 Blood Blood Culture - Pending 03/30/18 11:11 Blood Blood Culture - Pending
--- NOTE | 2018-03-30 11:17 | ED.GENADUL_ITS ---
Discharge Plan Disposition Patient Disposition: SNF (LEVEL 1) [facility] Condition: Stable Discharge Details Chief Complaint: Fever Clinical Impression: Aspiration into airway Reason For Visit: AURA Primary Care Provider: Barbara Almaguer ED Provider: Brennon Hahn [place] Meds and New Rx's Prescriptions: No Action baclofen 10 MG tablet 10 mg Feeding Tube HS prn Qty: 30 RF: 0 acetaminophen [Tylenol] 325 MG tablet 650 mg Feeding Tube Q4H PRN PRNRF: 0 fluoxetine 20 MG capsule 20 mg PO DAILY RF: 0 carbidopa-levodopa [Rytary] 1 EACH capsule, extended release 1 ea TID RF: 0 propranolol 40 MG tablet 40 mg Feeding Tube DAILY RF: 0 amantadine HCl 100 MG tablet 200 mg Feeding Tube BID RF: 0 polyethylene glycol 3350 17 GM powder in packet 17 gm Feeding Tube DAILY PRNRF: 0 melatonin 3 MG tablet 3 mg Feeding Tube HS PRNRF: 0 magnesium hydroxide [Milk of Magnesia] 30 ML suspension 30 mg PO HS PRNRF: 0 calcium carbonate 500 MG tablet,chewable 1 tab Feeding Tube .Q6H, PRN PRNRF: 0 sodium phosphates [Fleet Enema] 118 ML enema 1 btl [place] PRN PRNRF: 0 docusate sodium 100 MG capsule 100 mg BID PRNRF: 0 ondansetron HCl [Zofran] 4 mg Tablet 4 mg Feeding Tube Q6H PRN PRNRF: 0 omeprazole 20 mg Capsule,Delayed Release(Dr/Ec) 20 mg Feeding Tube DAILY RF: 0 ropinirole [Requip] 0.25 MG tablet 0.25 mg Feeding Tube TID RF: 0 acetaminophen 650 mg Suppository 650 mg WA Q4H PRN PRNRF: 0 bisacodyl [Dulcolax (bisacodyl)] 10 mg Suppository 1 supp [place] PRN PRNRF: 0 naproxen sodium 220 mg Tablet 440 mg Feeding Tube BID RF: 0 lactose-reduced food with fibr [Jevity 1.2 Kamlesh] 0.06 gram-1.2 kcal/mL Liquid 1 Feeding Tube TID RF: 0 nystatin 100,000 unit/gram Powder Topical BID Qty: 0 RF: 0 Medical Decision Making 52 yo female with hx of parkinson's who is bed bound and resides at [facility] and rehab comes in with cough, hypoxia per their report and altered mental status (yelling at people in the hallway and neighbors). She gets frequent pneumonias and they were concerned of this so sent her here. On room air here she is 95% and seems to be at her baseline. Will eval for pna and influenza and monitor. pt is currently caox4 and refusing lab work or imaging. Spoke with her BRINE ROOM LABORER at rehab who is going to send her nurse over to try and calm her and allow her to draw labs pt is now allowing xray and labs, will order this, still no tachycardia, hypotension or hypoxia. Xray negative and labs show no acute findings, remains hd stable. Spoke with her BRINE ROOM LABORER at rehab who asked a dose of levofloxacin be given here and IV to remain in place for continued abx if needed at rehab. Differential Diagnosis pna, uri, influenza Imaging Data Radiologic Study: Attestation: I personally reviewed and interpreted this imaging study as follows: Imaging: X-Ray My impression: no acute findings Lab Data Lab results reviewed: Yes I reviewed the patient's lab results. HPI General Mode of arrival: ambulatory . Date/Time Provider Initiated Documentation: 03/30/18 11:09 . Limitations to Documentation: no limitations . Information obtained by: patient . History of Present Illness 52 year old F presents to the emergency department with the chief complaint of cough, described as moderate, with intensity rated at 4. Quality is described as aching, No relieving factors improve symptom(s), No exacerbating factors reported . Patient did receive the following treatments prior to arrival, none Related Data Home Medications Medication Instructions Recorded Confirmed baclofen 10 mg FEEDING TUBE HS prn #30 07/25/16 03/30/18 tab-cap amantadine HCl 200 mg FEEDING TUBE BID 08/15/16 03/30/18 acetaminophen [Tylenol] 650 mg FEEDING TUBE Q4H PRN PRN 11/15/16 03/30/18 tab-cap fluoxetine 20 mg PO DAILY tab-cap 11/15/16 03/30/18 polyethylene glycol 3350 17 gm FEEDING TUBE DAILY PRN 08/15/17 03/30/18 carbidopa-levodopa [Rytary] 1 ea TID 08/30/17 03/08/18 propranolol 40 mg FEEDING TUBE DAILY 12/25/17 03/30/18 calcium carbonate 1 tab FEEDING TUBE .Q6H, PRN PRN 01/04/18 03/30/18 docusate sodium 100 mg BID PRN 01/04/18 03/30/18 magnesium hydroxide [Milk of 30 mg PO HS PRN 01/04/18 03/30/18 Magnesia] melatonin 3 mg FEEDING TUBE HS PRN 01/04/18 03/30/18 sodium phosphates [Fleet Enema] 1 btl [place] PRN PRN 01/04/18 03/30/18 ondansetron HCl [Zofran] 4 mg FEEDING TUBE Q6H PRN PRN 02/06/18 03/30/18 omeprazole 20 mg FEEDING TUBE DAILY 02/22/18 03/30/18 ropinirole [Requip] 0.25 mg FEEDING TUBE TID 03/07/18 03/30/18 acetaminophen 650 mg WA Q4H PRN PRN 03/08/18 03/30/18 bisacodyl [Dulcolax (bisacodyl)] 1 supp [place] PRN PRN 03/08/18 03/30/18 lactose-reduced food with fibr 1 FEEDING TUBE TID 03/08/18 [Jevity 1.2 Kamlesh] naproxen sodium 440 mg FEEDING TUBE BID 03/08/18 03/30/18 nystatin 0 g TOPICAL BID #0 g 03/14/18 Previous Rx's Medication Instructions Recorded nystatin 0 g TOPICAL BID #0 g 03/14/18 Allergies Allergy/AdvReac Type Severity Reaction Status Date / Time environmental Allergy Uncoded 03/30/18 11:16 General Stated Complaint: Fever SHAWN: 2 Review of Systems Review of Systems All systems reviewed & are unremarkable except as noted in HPI and below Constitutional Denies weakness Eyes Denies loss of vision ENT Denies change in voice Cardiovascular Denies chest pain and Denies dyspnea Respiratory Denies dyspnea Gastrointestinal Denies abdominal pain, Denies nausea and Denies vomiting Genitourinary Denies dysuria Musculoskeletal Denies joint swelling Integumentary/Breasts Denies rash Neurologic Denies loss of vision and Denies weakness Psychiatric Denies depression Endocrine Denies cold intolerance and Denies heat intolerance Allergic/Immunologic Denies urticaria PFSH Family History Mother AMI (acute myocardial infarction) Father AMI (acute myocardial infarction) Medical History 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) Ambulatory dysfunction (Chronic) Recurrent aspiration events (Chronic) Failure to thrive (Chronic) PEG (percutaneous endoscopic gastrostomy) adjustment/replacement/removal ( Chronic) Seizure (Resolved) NMS (neuroleptic malignant syndrome) (Resolved) Abnormal EKG (Resolved) Hyperlipidemia type III (Chronic) Anemia (Chronic) History of DIC syndrome (Resolved) Toxic metabolic encephalopathy (Resolved) UTI (urinary tract infection) (Resolved) Dysphagia (Chronic) Encephalopathy acute (Resolved) Fall (Chronic) Acute respiratory failure with hypoxia (Resolved) Pneumonia (Resolved) Anemia (Chronic) Acute kidney injury (Resolved) Parkinsons disease (Chronic) Secondary rhabdomyolysis (Resolved) Non-ST elevation NM (NSTEMI) (Resolved) Essential hypertension (Chronic) Hyperlipidemia (Chronic) Obesity (Chronic) Osteoarthritis (Chronic) Parkinson's disease (Chronic) Social History lives independently: No number of children: 2 number of grandchildren: 1 Smoking/Tobacco Use Status: Never alcohol intake: never substance use type: does not use Surgical History History of vaginal hysterectomy (Resolved) Exam Const General: no acute distress Orientation: alert HENMT Head: normal to inspection Ears: external ears normal General nose exam: external nose normal Mouth: moist mucous membranes Eyes General: appearance normal, both eyes and all related structures Neck Neck: normal visual inspection Resp Effort & Inspection: normal respiratory effort and able to speak in complete sentences Cardio Rate: regular rate Skin General skin exam: no rashes or lesions noted Neuro General: alert and oriented x3 Extrem General: normal to inspection Psych Mental Status: mental status grossly normal Course Vital Signs Temperature 36.7 C 03/30/18 11:08 Pulse 52 L 03/30/18 11:08 Respiratory Rate 19 03/30/18 11:08 Blood Pressure 104/27 L 03/30/18 11:08 Pulse Oximetry 97 03/30/18 11:08 Temperature 36.7 C 03/30/18 11:08 Temperature Source Skin 03/30/18 11:08 Pulse 52 L 03/30/18 11:08 Respiratory Rate 19 03/30/18 11:08 Blood Pressure 104/27 L 03/30/18 11:08 Pulse Oximetry 97 03/30/18 11:08 Oxygen Delivery Method Room Air 03/30/18 11:08 Oxygen Flow Rate 0 03/30/18 11:08 Lab/Test Results Lab/Test Results: 03/30/18 11:11 Blood Blood Culture - Pending 03/30/18 11:11 Blood Blood Culture - Pending
--- NOTE | 2018-03-30 11:48 | NUR.NOTE ---
Nursing Note: pt refused lab draw- MD aware.
--- NOTE | 2018-03-30 12:23 | DI.RAD_ITS ---
SYMPTOM/DIAGNOSIS: COUGH AP AND LATERAL CHEST: Comparison is made with 03/08/18. Heart size and pulmonary vasculature are within normal limits. The lungs are clear. No effusions or pneumothoraces are identified. IMPRESSION: No acute pulmonary process.
[2018-03-30 13:30] LABS: Abs Immature Grans 0.01 k/cumm (0.0-0.09); Absolute Basophil Count 0.08 k/cumm (0.0-0.2); Absolute Eosinophil Count 0.09 k/cumm (0.0-0.7); Absolute Lymphocyte Count 1.52 k/cumm (1.2-3.4); Absolute Monocyte Count 0.63 k/cumm (0.11-0.7); Absolute Neutrophil Count 2.93 k/cumm (1.2-6.7); Basophils % 1.5; Eosinophils % 1.7; HCT 33.1 % (36.0-46.0); HGB 10.7 g/dL (12.0-15.5); Immature Grans % 0.2; Lymphocytes % 28.9; Mean Corp. HGB Concentration 32.3 g/dL (32.0-36.0); Mean Corpuscular Volume 95.9 fL (80-95); Mean Platelet Volume 10.8 fL (8.0-11.0); Neutrophils % 55.7; Platelet Count 265 x1000/uL (130-400); RBC 3.45 m/cumm (4.00-5.20); RBC Distribution Width 14.8 % (11.7-14.6); White Blood Cell Count 5.26 k/cumm (4.4-10.8)
[2018-03-30] MEDS: LEVOFLOXACIN 750 MG/150 ML BAG 150 MG IVPB (13:36)
[2018-03-30 13:46] LABS: ALT 16 U/L (12-78); AST 19 U/L (15-37); Albumin 3.4 g/dL (3.4-5.0); Alkaline Phosphatase 101 U/L (46-116); Anion Gap 8.7 mmol/L (3-11); BUN 26 mg/dL (7-18); Bilirubin, Total 0.5 mg/dL (0.2-1.0); CO2 28.3 mmol/L (21.0-32.0); Calcium 9.1 mg/dL (8.5-10.1); Chloride 101 mmol/L (98-107); Glucose 104 mg/dL (70-100); Potassium 4.2 mmol/L (3.5-5.1); Sodium 138 mmol/L (136-145); Total Protein 7.2 g/dL (6.4-8.2)
== END 2018-03-30 14:04 | disposition skilled nursing facility (03) ==
PROVIDERS: Emergency Provider Emergency Medicine; PCP Nurse Practitioner Family
DX: T17.908A Unspecified foreign body in respiratory tract, part unspecified causing other injury, initial encounter (principal); R05 Cough; R50.9 Fever, unspecified; I10 Essential (primary) hypertension; G20 Parkinson's disease
CPT/HCPCS: 36415; 80053; 80076; 83690; 87040; 87449; 96365; 99284; 71046; 83735; 85025; 85610; 85730; J1956

== ENCOUNTER 2018-03-31 12:10 | Emergency (ER) | payer MEDICARE, MEDICAID, SELFPAY ==
[2018-03-31] VITALS (12 sets, daily range): BP systolic 116–174; BP diastolic 74–120; PULSE 88–92; RESP 20; TEMP 37.2; O2SAT 93–98
--- NOTE | 2018-03-31 12:25 | DI.RAD_ITS ---
SYMPTOM/DIAGNOSIS: HYPOXIC CHEST X-RAY: Portable AP view. Comparison 03/30/18 Heart size and pulmonary vasculature are stable and within normal limits. The lungs are clear. No effusions or pneumothoraces are identified. Degenerative changes are seen at the right glenohumeral joint and right AC joint. IMPRESSION: No acute pulmonary process.
--- NOTE | 2018-03-31 12:43 | W.ED.GENAD ---
Discharge Plan Disposition Patient Disposition: HOME Condition: Good Discharge Details Chief Complaint: RespSymp Clinical Impression: Acute dehydration, Geographic tongue Primary Care Provider: Barbara Almaguer ED Provider: Rosalino Kelsey Home Meds and New Rx's Prescriptions: No Action baclofen 10 MG tablet 10 mg Feeding Tube HS prn Qty: 30 RF: 0 acetaminophen [Tylenol] 325 MG tablet 650 mg Feeding Tube Q4H PRN PRNRF: 0 fluoxetine 20 MG capsule 20 mg PO DAILY RF: 0 carbidopa-levodopa [Rytary] 1 EACH capsule, extended release 1 ea TID RF: 0 propranolol 40 MG tablet 40 mg Feeding Tube DAILY RF: 0 amantadine HCl 100 MG tablet 200 mg Feeding Tube BID RF: 0 polyethylene glycol 3350 17 GM powder in packet 17 gm Feeding Tube DAILY PRNRF: 0 melatonin 3 MG tablet 3 mg Feeding Tube HS PRNRF: 0 magnesium hydroxide [Milk of Magnesia] 30 ML suspension 30 mg PO HS PRNRF: 0 calcium carbonate 500 MG tablet,chewable 1 tab Feeding Tube .Q6H, PRN PRNRF: 0 sodium phosphates [Fleet Enema] 118 ML enema 1 btl NV PRN PRNRF: 0 docusate sodium 100 MG capsule 100 mg BID PRNRF: 0 ondansetron HCl [Zofran] 4 mg Tablet 4 mg Feeding Tube Q6H PRN PRNRF: 0 omeprazole 20 mg Capsule,Delayed Release(Dr/Ec) 20 mg Feeding Tube DAILY RF: 0 ropinirole [Requip] 0.25 MG tablet 0.25 mg Feeding Tube TID RF: 0 acetaminophen 650 mg Suppository 650 mg NV Q4H PRN PRNRF: 0 bisacodyl [Dulcolax (bisacodyl)] 10 mg Suppository 1 supp NV PRN PRNRF: 0 naproxen sodium 220 mg Tablet 440 mg Feeding Tube BID RF: 0 lactose-reduced food with fibr [Jevity 1.2 Kamlesh] 0.06 gram-1.2 kcal/mL Liquid 1 Feeding Tube TID RF: 0 nystatin 100,000 unit/gram Powder Topical BID Qty: 0 RF: 0 Medical Decision Making This is a 52-year-old female with a past medical history of Parkinson's disease who presents from [facility] and rehab. She was here yesterday for evaluation of fever, and respiratory distress, she had a relatively benign withup normal vital signs, and no signs of significant hypoxemia. She was discharged back to her rehab facility on Levaquin for suspected clinical pneumonia. Patient was sent back today for oral lesions, and difficulty breathing. Here she does have normal vital signs, no hypoxemia, no signs of respiratory distress. The patient is refusing to allow me to evaluate her mouth, however she shows no other systemic signs of lesions, no evidence of SJS, TENS, or rash. We will rehydrate the patient, evaluate for any other acute etiology, and then contact the facility for potential return. 2:20 PM Patient's laboratory has returned and demonstrates no significant abnormalities. Slight high BUN to creatinine ratio suggesting dehydration. While the patient was sleeping I was able to apply her lips back without waking her, and evaluation of her mouth does demonstrate notably dry tongue and top of her mouth secondary to chronic mouth breathing, however evaluation of the rest of the tongue as she moved around demonstrated a normal-appearing tongue when it was in contact with her other oral mucosa. I feel her symptoms are most likely secondary to her chronic mouth breathing and not in acute etiology. I see no other lesions on her lips or the inside of her oral cavity to suggest an allergic reaction, or mouth cancer or other significant abnormality. I discussed the case with Dr. Ramírez, and she agreed with the assessment and plan and how the patient could be discharged back. We did rehydrate her with 1 L, no put in a standing order for a second liter of IV fluid at her facility. With normal vital signs, no signs of acute distress, normal laboratory workup, and a benign chest x-ray I feel she is safe for discharge back to her facility. I have extensively reviewed the treatment plan with the patient. I have addressed all patient concerns at this time. I have also discussed the plan with the admitting physician and they agree with the current assessment and plan and have agreed to assume responsibility for the patient. All parties demonstrate verbal understanding and agreement with our assessment and plan at this time. FINDINGS: Lungs: Unremarkable. No consolidation. Pleural space: Unremarkable. No pleural effusion. No pneumothorax. Heart/Mediastinum: Stable cardiac silhouette Bones/joints: Osseous structures are stable IMPRESSION: No acute process. HPI General Date/Time Provider Initiated Documentation: 03/31/18 12:24. HPI Narrative: This is a 52-year-old female with a past medical history of Parkinson's, chronically bedbound, with a history of frequent pneumonias, who was recently seen and evaluated here in the emergency department last night for fever, confusion, and agitation. At that time she had a relatively benign workup, however she was started on IV Levaquin for suspected pneumonia. She was discharged back to her facility with her IV for continued IV Levaquin. Today per nursing staff at the facility patient was having difficulty breathing, and was sent back over for reevaluation. Additionally they noted lesions in the mouth, and were concerned for this. On arrival to the ED the patient appears hemodynamically stable with no hypoxemia. We have all oxygen removed and she is saturating in the 90s, at 93-94. Patient has no complaints at this time, and is refusing to allow us to evaluate her mouth. Patient has nothing additional to add to the history, makes no additional complaints or concerns. Related Data Home Medications Medication Instructions Recorded Confirmed baclofen 10 mg FEEDING TUBE HS prn #30 07/25/16 03/30/18 tab-cap amantadine HCl 200 mg FEEDING TUBE BID 08/15/16 03/30/18 acetaminophen [Tylenol] 650 mg FEEDING TUBE Q4H PRN PRN 11/15/16 03/30/18 tab-cap fluoxetine 20 mg PO DAILY tab-cap 11/15/16 03/30/18 polyethylene glycol 3350 17 gm FEEDING TUBE DAILY PRN 08/15/17 03/30/18 carbidopa-levodopa [Rytary] 1 ea TID 08/30/17 03/08/18 propranolol 40 mg FEEDING TUBE DAILY 12/25/17 03/30/18 calcium carbonate 1 tab FEEDING TUBE .Q6H, PRN PRN 01/04/18 03/30/18 docusate sodium 100 mg BID PRN 01/04/18 03/30/18 magnesium hydroxide [Milk of 30 mg PO HS PRN 01/04/18 03/30/18 Magnesia] melatonin 3 mg FEEDING TUBE HS PRN 01/04/18 03/30/18 sodium phosphates [Fleet Enema] 1 btl NV PRN PRN 01/04/18 03/30/18 ondansetron HCl [Zofran] 4 mg FEEDING TUBE Q6H PRN PRN 02/06/18 03/30/18 omeprazole 20 mg FEEDING TUBE DAILY 02/22/18 03/30/18 ropinirole [Requip] 0.25 mg FEEDING TUBE TID 03/07/18 03/30/18 acetaminophen 650 mg NV Q4H PRN PRN 03/08/18 03/30/18 bisacodyl [Dulcolax (bisacodyl)] 1 supp NV PRN PRN 03/08/18 03/30/18 lactose-reduced food with fibr 1 FEEDING TUBE TID 03/08/18 [Jevity 1.2 Kamlesh] naproxen sodium 440 mg FEEDING TUBE BID 03/08/18 03/30/18 nystatin 0 g TOPICAL BID #0 g 03/14/18 Previous Rx's Medication Instructions Recorded nystatin 0 g TOPICAL BID #0 g 03/14/18 Allergies Allergy/AdvReac Type Severity Reaction Status Date / Time environmental Allergy Uncoded 03/30/18 11:16 General Stated Complaint: RespSymp SHAWN: 3 Review of Systems Review of Systems All systems reviewed & are unremarkable except as noted in HPI and below Exam Narrative Exam Narrative: 1.Const: Cachectic, diminished muscle tone, chronic state and baseline 2.Eyes: PERRL, no conjunctival injection, and symmetrical lids. 3.ENT: Atraumatic external nose and ears. Extremely dry MM. Neck: Symmetric, trachea midline, No thyromegaly. Patient is refusing to allow complete visualization of her oral cavity. Patient will not open her mouth for inspection, she states I am fine. From an extremely limited exam I can visualize a very dry tongue, but no other significant abnormalities. No clear presence of blood or significant lesions, on limited bedside exam secondary to patient noncompliance 4.CVS: +S1/S2, No murmurs or gallops. Peripheral pulses 2+ and equal in all extremities. Brisk capillary refill in all extremities. 5.RESP: Unlabored respiratory effort. No significant tachypnea, mild crackles in the bases, slightly reduced breath sounds throughout. 6.GI: Soft, Nontender/Nondistended, No hepatosplenomegaly. No guarding or rebound. PEG tube in place in left abdomen 7.MSK: Normocephalic/Atraumatic, Extremities w/o deformity or ttp No cyanosis, normal movement of all extremities secondary to severe baseline Parkinson's, patient does appear to be at her baseline 8.Skin: Warm, Dry. No evidence of vesicles, erythema, rash, or lesions on the patient's entire skin except for chronic old mild decubitus ulcers in the coccyx area. These are very minimal, showing no signs of significant worsening of infection. No evidence of other systemic lesions. 9.Neuro: Neurologic exam is limited secondary to patient's chronic Parkinson's, appears to be at baseline from review of previous physical exams. 10.Psych: Awake, alert, and oriented to person and place. She is able to respond and answer all questions appropriately. She does get aggravated when a repeatedly asked to evaluate her oropharynx, however she does have the right of refusal, and states that the reason for refusing is I am fine, I do not need anything. Course Vital Signs Temperature 37.2 C 03/31/18 12:10 Pulse 88 03/31/18 12:10 Respiratory Rate 20 03/31/18 12:10 Blood Pressure 130/85 03/31/18 12:10 Pulse Oximetry 98 03/31/18 12:10 Temperature 37.2 C 03/31/18 12:10 Temperature Source Skin 03/31/18 12:10 Pulse 88 03/31/18 12:10 Respiratory Rate 20 03/31/18 12:10 Blood Pressure 130/85 03/31/18 12:10 Blood Pressure Position Supine 03/31/18 12:10 Pulse Oximetry 98 03/31/18 12:10 Oxygen Delivery Method Nasal Cannula 03/31/18 12:10 Oxygen Flow Rate 2 03/31/18 12:10
--- NOTE | 2018-03-31 12:51 | ED.GENADUL_ITS ---
Discharge Plan Disposition Patient Disposition: HOME Condition: Good Discharge Details Chief Complaint: RespSymp Clinical Impression: Acute dehydration, Geographic tongue Primary Care Provider: Barbara Almaguer ED Provider: Rosalino Kelsey Home Meds and New Rx's Prescriptions: No Action baclofen 10 MG tablet 10 mg Feeding Tube HS prn Qty: 30 RF: 0 acetaminophen [Tylenol] 325 MG tablet 650 mg Feeding Tube Q4H PRN PRNRF: 0 fluoxetine 20 MG capsule 20 mg PO DAILY RF: 0 carbidopa-levodopa [Rytary] 1 EACH capsule, extended release 1 ea TID RF: 0 propranolol 40 MG tablet 40 mg Feeding Tube DAILY RF: 0 amantadine HCl 100 MG tablet 200 mg Feeding Tube BID RF: 0 polyethylene glycol 3350 17 GM powder in packet 17 gm Feeding Tube DAILY PRNRF: 0 melatonin 3 MG tablet 3 mg Feeding Tube HS PRNRF: 0 magnesium hydroxide [Milk of Magnesia] 30 ML suspension 30 mg PO HS PRNRF: 0 calcium carbonate 500 MG tablet,chewable 1 tab Feeding Tube .Q6H, PRN PRNRF: 0 sodium phosphates [Fleet Enema] 118 ML enema 1 btl VT PRN PRNRF: 0 docusate sodium 100 MG capsule 100 mg BID PRNRF: 0 ondansetron HCl [Zofran] 4 mg Tablet 4 mg Feeding Tube Q6H PRN PRNRF: 0 omeprazole 20 mg Capsule,Delayed Release(Dr/Ec) 20 mg Feeding Tube DAILY RF: 0 ropinirole [Requip] 0.25 MG tablet 0.25 mg Feeding Tube TID RF: 0 acetaminophen 650 mg Suppository 650 mg VT Q4H PRN PRNRF: 0 bisacodyl [Dulcolax (bisacodyl)] 10 mg Suppository 1 supp VT PRN PRNRF: 0 naproxen sodium 220 mg Tablet 440 mg Feeding Tube BID RF: 0 lactose-reduced food with fibr [Jevity 1.2 Kamlesh] 0.06 gram-1.2 kcal/mL Liquid 1 Feeding Tube TID RF: 0 nystatin 100,000 unit/gram Powder Topical BID Qty: 0 RF: 0 Medical Decision Making This is a 52-year-old female with a past medical history of Parkinson' s disease who presents from [facility] and rehab. She was here yesterday for evaluation of fever, and respiratory distress, she had a relatively benign withup normal vital signs, and no signs of significant hypoxemia. She was discharged back to her rehab facility on Levaquin for suspected clinical pneumonia. Patient was sent back today for oral lesions, and difficulty breathing. Here she does have normal vital signs, no hypoxemia, no signs of respiratory distress. The patient is refusing to allow me to evaluate her mouth , however she shows no other systemic signs of lesions, no evidence of SJS, TENS , or rash. We will rehydrate the patient, evaluate for any other acute etiology , and then contact the facility for potential return. 2:20 PM Patient's laboratory has returned and demonstrates no significant abnormalities. Slight high BUN to creatinine ratio suggesting dehydration. While the patient was sleeping I was able to apply her lips back without waking her, and evaluation of her mouth does demonstrate notably dry tongue and top of her mouth secondary to chronic mouth breathing, however evaluation of the rest of the tongue as she moved around demonstrated a normal-appearing tongue when it was in contact with her other oral mucosa. I feel her symptoms are most likely secondary to her chronic mouth breathing and not in acute etiology. I see no other lesions on her lips or the inside of her oral cavity to suggest an allergic reaction, or mouth cancer or other significant abnormality. I discussed the case with Dr. Ramírez, and she agreed with the assessment and plan and how the patient could be discharged back. We did rehydrate her with 1 L, no put in a standing order for a second liter of IV fluid at her facility. With normal vital signs, no signs of acute distress, normal laboratory workup, and a benign chest x-ray I feel she is safe for discharge back to her facility. I have extensively reviewed the treatment plan with the patient. I have addressed all patient concerns at this time. I have also discussed the plan with the admitting physician and they agree with the current assessment and plan and have agreed to assume responsibility for the patient. All parties demonstrate verbal understanding and agreement with our assessment and plan at this time. FINDINGS: Lungs: Unremarkable. No consolidation. Pleural space: Unremarkable. No pleural effusion. No pneumothorax. Heart/Mediastinum: Stable cardiac silhouette Bones/joints: Osseous structures are stable IMPRESSION: No acute process. HPI General Date/Time Provider Initiated Documentation: 03/31/18 12:24 . HPI Narrative: This is a 52-year-old female with a past medical history of Parkinson's, chronically bedbound, with a history of frequent pneumonias, who was recently seen and evaluated here in the emergency department last night for fever, confusion, and agitation. At that time she had a relatively benign workup, however she was started on IV Levaquin for suspected pneumonia. She was discharged back to her facility with her IV for continued IV Levaquin. Today per nursing staff at the facility patient was having difficulty breathing, and was sent back over for reevaluation. Additionally they noted lesions in the mouth, and were concerned for this. On arrival to the ED the patient appears hemodynamically stable with no hypoxemia. We have all oxygen removed and she is saturating in the 90s, at 93-94. Patient has no complaints at this time, and is refusing to allow us to evaluate her mouth. Patient has nothing additional to add to the history, makes no additional complaints or concerns. Related Data Home Medications Medication Instructions Recorded Confirmed baclofen 10 mg FEEDING TUBE HS prn #30 07/25/16 03/30/18 tab-cap amantadine HCl 200 mg FEEDING TUBE BID 08/15/16 03/30/18 acetaminophen [Tylenol] 650 mg FEEDING TUBE Q4H PRN PRN 11/15/16 03/30/18 tab-cap fluoxetine 20 mg PO DAILY tab-cap 11/15/16 03/30/18 polyethylene glycol 3350 17 gm FEEDING TUBE DAILY PRN 08/15/17 03/30/18 carbidopa-levodopa [Rytary] 1 ea TID 08/30/17 03/08/18 propranolol 40 mg FEEDING TUBE DAILY 12/25/17 03/30/18 calcium carbonate 1 tab FEEDING TUBE .Q6H, PRN PRN 01/04/18 03/30/18 docusate sodium 100 mg BID PRN 01/04/18 03/30/18 magnesium hydroxide [Milk of 30 mg PO HS PRN 01/04/18 03/30/18 Magnesia] melatonin 3 mg FEEDING TUBE HS PRN 01/04/18 03/30/18 sodium phosphates [Fleet Enema] 1 btl VT PRN PRN 01/04/18 03/30/18 ondansetron HCl [Zofran] 4 mg FEEDING TUBE Q6H PRN PRN 02/06/18 03/30/18 omeprazole 20 mg FEEDING TUBE DAILY 02/22/18 03/30/18 ropinirole [Requip] 0.25 mg FEEDING TUBE TID 03/07/18 03/30/18 acetaminophen 650 mg VT Q4H PRN PRN 03/08/18 03/30/18 bisacodyl [Dulcolax (bisacodyl)] 1 supp VT PRN PRN 03/08/18 03/30/18 lactose-reduced food with fibr 1 FEEDING TUBE TID 03/08/18 [Jevity 1.2 Kamlesh] naproxen sodium 440 mg FEEDING TUBE BID 03/08/18 03/30/18 nystatin 0 g TOPICAL BID #0 g 03/14/18 Previous Rx's Medication Instructions Recorded nystatin 0 g TOPICAL BID #0 g 03/14/18 Allergies Allergy/AdvReac Type Severity Reaction Status Date / Time environmental Allergy Uncoded 03/30/18 11:16 General Stated Complaint: RespSymp SHAWN: 3 Review of Systems Review of Systems All systems reviewed & are unremarkable except as noted in HPI and below Exam Narrative Exam Narrative: 1.Const: Cachectic, diminished muscle tone, chronic state and baseline 2.Eyes: PERRL, no conjunctival injection, and symmetrical lids. 3.ENT: Atraumatic external nose and ears. Extremely dry MM. Neck: Symmetric, trachea midline, No thyromegaly. Patient is refusing to allow complete visualization of her oral cavity. Patient will not open her mouth for inspection, she states I am fine. From an extremely limited exam I can visualize a very dry tongue, but no other significant abnormalities. No clear presence of blood or significant lesions, on limited bedside exam secondary to patient noncompliance 4.CVS: +S1/S2, No murmurs or gallops. Peripheral pulses 2+ and equal in all extremities. Brisk capillary refill in all extremities. 5.RESP: Unlabored respiratory effort. No significant tachypnea, mild crackles in the bases, slightly reduced breath sounds throughout. 6.GI: Soft, Nontender/Nondistended, No hepatosplenomegaly. No guarding or rebound. PEG tube in place in left abdomen 7.MSK: Normocephalic/Atraumatic, Extremities w/o deformity or ttp No cyanosis, normal movement of all extremities secondary to severe baseline Parkinson's, patient does appear to be at her baseline 8.Skin: Warm, Dry. No evidence of vesicles, erythema, rash, or lesions on the patient's entire skin except for chronic old mild decubitus ulcers in the coccyx area. These are very minimal, showing no signs of significant worsening of infection. No evidence of other systemic lesions. 9.Neuro: Neurologic exam is limited secondary to patient's chronic Parkinson's, appears to be at baseline from review of previous physical exams. 10.Psych: Awake, alert, and oriented to person and place. She is able to respond and answer all questions appropriately. She does get aggravated when a repeatedly asked to evaluate her oropharynx, however she does have the right of refusal, and states that the reason for refusing is I am fine, I do not need anything. Course Vital Signs Temperature 37.2 C 03/31/18 12:10 Pulse 88 03/31/18 12:10 Respiratory Rate 20 03/31/18 12:10 Blood Pressure 130/85 03/31/18 12:10 Pulse Oximetry 98 03/31/18 12:10 Temperature 37.2 C 03/31/18 12:10 Temperature Source Skin 03/31/18 12:10 Pulse 88 03/31/18 12:10 Respiratory Rate 20 03/31/18 12:10 Blood Pressure 130/85 03/31/18 12:10 Blood Pressure Position Supine 03/31/18 12:10 Pulse Oximetry 98 03/31/18 12:10 Oxygen Delivery Method Nasal Cannula 03/31/18 12:10 Oxygen Flow Rate 2 03/31/18 12:10
[2018-03-31] MEDS: Normal Saline 1,000 ML 1000 ML IV (13:05)
[2018-03-31 13:36] LABS: Abs Immature Grans 0.01 k/cumm (0.0-0.09); Absolute Basophil Count 0.05 k/cumm (0.0-0.2); Absolute Lymphocyte Count 1.82 k/cumm (1.2-3.4); Absolute Monocyte Count 0.53 k/cumm (0.11-0.7); Absolute Neutrophil Count 2.26 k/cumm (1.2-6.7); BE (Venous) 0.5 mmol/L (-3-3); Eosinophils % 2.1; HCO3 (Venous) 25 mmol/L (22-28); HCT 31.4 % (36.0-46.0); HGB 10.1 g/dL (12.0-15.5); Immature Grans % 0.2; Lymphocytes % 38.2; Mean Corp. HGB Concentration 32.2 g/dL (32.0-36.0); Mean Corpuscular Volume 96.3 fL (80-95); Mean Platelet Volume 10.3 fL (8.0-11.0); Monocytes % 11.1; Neutrophils % 47.4; O2 Sat (Venous) 77 % (70-80); Platelet Count 218 x1000/uL (130-400); RBC 3.26 m/cumm (4.00-5.20); RBC Distribution Width 14.6 % (11.7-14.6); TCO2 (Venous) 24 mmol/L (22-29); White Blood Cell Count 4.77 k/cumm (4.4-10.8); pCO2 (Venous) 40 mm/Hg (34-47); pH (Venous) 7.41 (7.32-7.43); pO2 (Venous) 40 mm/Hg (28-44)
--- NOTE | 2018-03-31 13:53 | DI.VRAD_ITS ---
EXAM: XR Chest, 1 View EXAM DATE/TIME: 03/31/2018 12:49 PM CLINICAL HISTORY: 52 years old, female; Pain; Other: Hypoxic TECHNIQUE: XR of the chest, 1 view. COMPARISON: CR XR CHEST 2V PA LATERAL 03/30/2018 12:38 PM FINDINGS: Lungs: Unremarkable. No consolidation. Pleural space: Unremarkable. No pleural effusion. No pneumothorax. Heart/Mediastinum: Stable cardiac silhouette Bones/joints: Osseous structures are stable IMPRESSION: No acute process. Dictated and Authenticated by: Kim Cueva MD. Ordering:NEYDA MENDEZ MD
[2018-03-31 13:56] LABS: ALT 17 U/L (12-78); AST 17 U/L (15-37); Albumin 3.1 g/dL (3.4-5.0); Alkaline Phosphatase 82 U/L (46-116); Anion Gap 11.6 mmol/L (3-11); BUN 22 mg/dL (7-18); Bilirubin, Total 0.7 mg/dL (0.2-1.0); CO2 25.4 mmol/L (21.0-32.0); CREATININE 0.67 mg/dL (0.55-1.02); Calcium 8.8 mg/dL (8.5-10.1); Chloride 102 mmol/L (98-107); Glucose 70 mg/dL (70-100); Potassium 3.5 mmol/L (3.5-5.1); Sodium 139 mmol/L (136-145); Total Protein 6.6 g/dL (6.4-8.2)
== END 2018-03-31 14:25 | disposition home or self-care (01) ==
PROVIDERS: Emergency Provider Student in an Organized Health Care Education/Training Program; PCP Nurse Practitioner Family
DX: E86.0 Dehydration (principal); G20 Parkinson's disease
CPT/HCPCS: 36415; 80053; 82805; 96360; 99284; 71045; 85025

== ENCOUNTER → 2018-04-02 10:53 | Outpatient (BNVA) | payer MEDICARE, MEDICAID, SELFPAY | PROVIDERS: PCP Nurse Practitioner Family; Visit Provider Psychiatry & Neurology Neurology | DX: G20 Parkinson's disease (principal); Q99.8 Other specified chromosome abnormalities; R13.10 Dysphagia, unspecified; R41.82 Altered mental status, unspecified; I10 Essential (primary) hypertension | CPT/HCPCS: 99214 ==

== ENCOUNTER 2018-04-05 04:04 | Inpatient (IN) | payer MEDICARE, MEDICAID, SELFPAY ==
[2018-04-05] VITALS (31 sets, daily range): BP systolic 109–153; BP diastolic 65–92; PULSE 49–119; RESP 10–44; TEMP 36.7–37.3; O2SAT 90–100
--- NOTE | 2018-04-05 04:20 | W.ED.GENAD ---
Discharge Plan Discharge Details Chief Complaint: SOB Reason For Visit: ACUTE MENTAL STATUS CHANGE, AUTONOMIC HYPERACTIVIT Admit Date/Time: 04/05/18 07:23 Admit Provider: Alex Kong Attending Provider: Alex Kong Primary Care Provider: Barbara Almaguer ED Provider: Hemant Brooks Home Meds and New Rx's Prescriptions: No Action baclofen 10 MG tablet 10 mg Feeding Tube HS prn Qty: 30 RF: 0 acetaminophen [Tylenol] 325 MG tablet 650 mg Feeding Tube Q4H PRN PRNRF: 0 fluoxetine 20 MG capsule 20 mg Feeding Tube DAILY RF: 0 propranolol 40 MG tablet 40 mg Feeding Tube DAILY RF: 0 ipratropium-albuterol 0.5 mg-3 mg(2.5 mg base)/3 mL solution for nebulization 3 ml IH Q4H RF: 0 omeprazole 20 mg capsule,delayed release(DR/EC) 20 mg Feeding Tube DAILY RF: 0 levofloxacin [Levaquin] 750 mg tablet 750 mg Feeding Tube HS RF: 0 bisacodyl [Dulcolax (bisacodyl)] 10 mg suppository 10 mg NV ONCE RF: 0 amantadine HCl 100 MG tablet 200 mg Feeding Tube BID RF: 0 polyethylene glycol 3350 17 GM powder in packet 17 gm Feeding Tube DAILY PRNRF: 0 melatonin 3 MG tablet 3 mg Feeding Tube HS PRNRF: 0 calcium carbonate 500 MG tablet,chewable 1 tab Feeding Tube .Q6H, PRN PRNRF: 0 docusate sodium 100 MG capsule 100 mg BID PRNRF: 0 ropinirole [Requip] 0.25 MG tablet 0.25 mg Feeding Tube TID RF: 0 acetaminophen 650 mg Suppository 650 mg NV Q4H PRN PRNRF: 0 naproxen sodium 220 mg Tablet 440 mg Feeding Tube BID RF: 0 lactose-reduced food with fibr [Jevity 1.2 Kamlesh] 0.06 gram-1.2 kcal/mL Liquid 1 Feeding Tube QID RF: 0 carbidopa-levodopa [Rytary] 48.75-195 mg Capsule, Extended Release 1 cap TID RF: 0 Medical Decision Making 4:30 -- 52year-old female with multiple medical problems including progressive Parkinson's disease, recurrent pneumonia and now on Levaquin, sent from [facility] for shortness of breath and questionable hypoxia. Afebrile. Patient does have increased work of breathing. With ear pulse oximetry she is saturating 98% on room air. We will continue oxygen administration given respiratory status. ECG was reviewed and interpreted by me: Significantly limited secondary to artifact from shaking, ventricular beats are at a rate of approximately 100 bpm, study is limited and nondiagnostic. Consider worsening PNA vs progressive parkinsons disease autonomic dysfunction. Patient is on amantadine, ropinirole, and carbidopa/levodopa (recently increased per JUL). 5:23 -- cxr reviewed and interpreted by radiology: No acute findings. Labs reviewed: BNP elevated. nl trop. Patient does have prior echo showing EF of 49% and hypokinesis inferior wall. -- Considered PE and attempted CT chest - unfortunately IV infiltrated during contrast administration. No other appropriate IV access could be obtain at this time. Will send ddimer. 6:45 -- I spoke with Dr. Kong: I discussed patient presentation, diagnostic results, and ED course. He is aware of pending ddimer. He recommended benadryl for potential dystonic reaction. He will admit. Plan for neuro consult. 7:15 -- Patient reassessed and tremor improved and now able to respond to some questions. HPI General Mode of arrival: ambulatory. Date/Time Provider Initiated Documentation: 04/05/18 04:17. Limitations to Documentation: other (nonverbal). Information obtained by: EMS. HPI Narrative: 52-year-old female with multiple medical problems including advanced Parkinson's disease, recurrent aspiration, now status post PEG tube placement, here after being sent over from nursing rehab facility with questionable hypoxia (pulse ox not registering) and increased work of breathing. History and ROS is limited as patient is nonverbal. Patient was recently seen here, diagnosed with PNA, and has been on levaquin. Related Data Home Medications Medication Instructions Recorded Confirmed baclofen 10 mg FEEDING TUBE HS prn #30 07/25/16 04/05/18 tab-cap amantadine HCl 200 mg FEEDING TUBE BID 08/15/16 04/05/18 acetaminophen [Tylenol] 650 mg FEEDING TUBE Q4H PRN PRN 11/15/16 04/05/18 tab-cap fluoxetine 20 mg FEEDING TUBE DAILY tab-cap 11/15/16 04/05/18 polyethylene glycol 3350 17 gm FEEDING TUBE DAILY PRN 08/15/17 04/05/18 propranolol 40 mg FEEDING TUBE DAILY 12/25/17 04/05/18 calcium carbonate 1 tab FEEDING TUBE .Q6H, PRN PRN 01/04/18 04/05/18 docusate sodium 100 mg BID PRN 01/04/18 04/05/18 melatonin 3 mg FEEDING TUBE HS PRN 01/04/18 04/05/18 ropinirole [Requip] 0.25 mg FEEDING TUBE TID 03/07/18 04/05/18 acetaminophen 650 mg NV Q4H PRN PRN 03/08/18 04/05/18 lactose-reduced food with fibr 1 FEEDING TUBE QID 03/08/18 [Jevity 1.2 Kamlesh] naproxen sodium 440 mg FEEDING TUBE BID 03/08/18 04/05/18 bisacodyl 10 mg rectal suppository 10 mg NV ONCE 04/02/18 04/05/18 ipratropium-albuterol 0.5 mg-3 3 ml IH Q4H ml 04/02/18 04/05/18 mg(2.5 mg base)/3 mL nebulization soln levofloxacin 750 mg tablet 750 mg FEEDING TUBE HS tab 04/02/18 04/05/18 omeprazole 20 mg capsule,delayed 20 mg FEEDING TUBE DAILY 04/02/18 04/05/18 release carbidopa-levodopa [Rytary] 1 cap TID 04/05/18 04/05/18 Allergies Allergy/AdvReac Type Severity Reaction Status Date / Time environmental Allergy Uncoded 04/05/18 05:19 General SHAWN: 3 Review of Systems Review of Systems Unobtainable due to (nonverbal) Exam Const Orientation: alert Limitations: altered mental status Other: Patient shaking full body HENMT Head: normocephalic General nose exam: nasal discharge bloody (dired blood) on the right Face and sinus: face symmetric Mouth: moist mucous membranes Eyes Conjunctivae: normal conjunctivae Sclera: normal sclerae EOM: EOM intact bilaterally Neck Neck: trachea midline and supple Resp Effort & Inspection: tachypneic Auscultation: clear to auscultation bilaterally, no rales, no rhonchi and no wheezes Cardio Jugular venous pressure: no JVD Rate: regular rate and tachycardic Rhythm: regular rhythm GI Palpation: soft, not firm, no guarding, no masses, not rigid and nontender Other: peg intact Skin General skin exam: other (diaphoretic) Rashes: rashes noted (stage 2 pressure ulcer coccyx with no cellulitis ) Neuro General: alert, awake and other (spasticity noted) Motor: tremor (full body) Extrem General: no edema Course Lab/Test Results Lab/Test Results: 04/05/18 04:18 Blood Blood Culture - Pending 04/05/18 04:18 Blood Blood Culture - Pending
[2018-04-05 04:34] LABS: Bilirubin Negative (Negative); Blood Negative (Negative); Clarity Clear; Glucose Negative (Negative); Ketones Negative (Negative); Leukocyte Esterase Negative (Negative); Nitrite Negative (Negative); Specific Gravity 1.025 (1.005-1.025)
--- NOTE | 2018-04-05 04:34 | ED.GENADUL_ITS ---
Discharge Plan Discharge Details Chief Complaint: SOB Reason For Visit: ACUTE MENTAL STATUS CHANGE, AUTONOMIC HYPERACTIVIT Admit Date/Time: 04/05/18 07:23 Admit Provider: Alex Kong Attending Provider: Alex Kong Primary Care Provider: Barbara Almaguer ED Provider: Hemant Brooks Home Meds and New Rx's Prescriptions: No Action baclofen 10 MG tablet 10 mg Feeding Tube HS prn Qty: 30 RF: 0 acetaminophen [Tylenol] 325 MG tablet 650 mg Feeding Tube Q4H PRN PRNRF: 0 fluoxetine 20 MG capsule 20 mg Feeding Tube DAILY RF: 0 propranolol 40 MG tablet 40 mg Feeding Tube DAILY RF: 0 ipratropium-albuterol 0.5 mg-3 mg(2.5 mg base)/3 mL solution for nebulization 3 ml IH Q4H RF: 0 omeprazole 20 mg capsule,delayed release(DR/EC) 20 mg Feeding Tube DAILY RF: 0 levofloxacin [Levaquin] 750 mg tablet 750 mg Feeding Tube HS RF: 0 bisacodyl [Dulcolax (bisacodyl)] 10 mg suppository 10 mg DC ONCE RF: 0 amantadine HCl 100 MG tablet 200 mg Feeding Tube BID RF: 0 polyethylene glycol 3350 17 GM powder in packet 17 gm Feeding Tube DAILY PRNRF: 0 melatonin 3 MG tablet 3 mg Feeding Tube HS PRNRF: 0 calcium carbonate 500 MG tablet,chewable 1 tab Feeding Tube .Q6H, PRN PRNRF: 0 docusate sodium 100 MG capsule 100 mg BID PRNRF: 0 ropinirole [Requip] 0.25 MG tablet 0.25 mg Feeding Tube TID RF: 0 acetaminophen 650 mg Suppository 650 mg DC Q4H PRN PRNRF: 0 naproxen sodium 220 mg Tablet 440 mg Feeding Tube BID RF: 0 lactose-reduced food with fibr [Jevity 1.2 Kamlesh] 0.06 gram-1.2 kcal/mL Liquid 1 Feeding Tube QID RF: 0 carbidopa-levodopa [Rytary] 48.75-195 mg Capsule, Extended Release 1 cap TID RF: 0 Medical Decision Making 4:30 -- 52year-old female with multiple medical problems including progressive Parkinson's disease, recurrent pneumonia and now on Levaquin, sent from [facility] for shortness of breath and questionable hypoxia. Afebrile. Patient does have increased work of breathing. With ear pulse oximetry she is saturating 98% on room air. We will continue oxygen administration given respiratory status. ECG was reviewed and interpreted by me: Significantly limited secondary to artifact from shaking, ventricular beats are at a rate of approximately 100 bpm , study is limited and nondiagnostic. Consider worsening PNA vs progressive parkinsons disease autonomic dysfunction. Patient is on amantadine, ropinirole, and carbidopa/levodopa (recently increased per JUL). 5:23 -- cxr reviewed and interpreted by radiology: No acute findings. Labs reviewed: BNP elevated. nl trop. Patient does have prior echo showing EF of 49% and hypokinesis inferior wall. -- Considered PE and attempted CT chest - unfortunately IV infiltrated during contrast administration. No other appropriate IV access could be obtain at this time. Will send ddimer. 6:45 -- I spoke with Dr. Kong: I discussed patient presentation, diagnostic results, and ED course. He is aware of pending ddimer. He recommended benadryl for potential dystonic reaction. He will admit. Plan for neuro consult. 7:15 -- Patient reassessed and tremor improved and now able to respond to some questions. HPI General Mode of arrival: ambulatory . Date/Time Provider Initiated Documentation: 04/05/18 04:17 . Limitations to Documentation: other (nonverbal) . Information obtained by: EMS . HPI Narrative: 52-year-old female with multiple medical problems including advanced Parkinson's disease, recurrent aspiration, now status post PEG tube placement, here after being sent over from nursing rehab facility with questionable hypoxia (pulse ox not registering) and increased work of breathing. History and ROS is limited as patient is nonverbal. Patient was recently seen here, diagnosed with PNA, and has been on levaquin. Related Data Home Medications Medication Instructions Recorded Confirmed baclofen 10 mg FEEDING TUBE HS prn #30 07/25/16 04/05/18 tab-cap amantadine HCl 200 mg FEEDING TUBE BID 08/15/16 04/05/18 acetaminophen [Tylenol] 650 mg FEEDING TUBE Q4H PRN PRN 11/15/16 04/05/18 tab-cap fluoxetine 20 mg FEEDING TUBE DAILY tab-cap 11/15/16 04/05/18 polyethylene glycol 3350 17 gm FEEDING TUBE DAILY PRN 08/15/17 04/05/18 propranolol 40 mg FEEDING TUBE DAILY 12/25/17 04/05/18 calcium carbonate 1 tab FEEDING TUBE .Q6H, PRN PRN 01/04/18 04/05/18 docusate sodium 100 mg BID PRN 01/04/18 04/05/18 melatonin 3 mg FEEDING TUBE HS PRN 01/04/18 04/05/18 ropinirole [Requip] 0.25 mg FEEDING TUBE TID 03/07/18 04/05/18 acetaminophen 650 mg DC Q4H PRN PRN 03/08/18 04/05/18 lactose-reduced food with fibr 1 FEEDING TUBE QID 03/08/18 [Jevity 1.2 Kamlesh] naproxen sodium 440 mg FEEDING TUBE BID 03/08/18 04/05/18 bisacodyl 10 mg rectal suppository 10 mg DC ONCE 04/02/18 04/05/18 ipratropium-albuterol 0.5 mg-3 3 ml IH Q4H ml 04/02/18 04/05/18 mg(2.5 mg base)/3 mL nebulization soln levofloxacin 750 mg tablet 750 mg FEEDING TUBE HS tab 04/02/18 04/05/18 omeprazole 20 mg capsule,delayed 20 mg FEEDING TUBE DAILY 04/02/18 04/05/18 release carbidopa-levodopa [Rytary] 1 cap TID 04/05/18 04/05/18 Allergies Allergy/AdvReac Type Severity Reaction Status Date / Time environmental Allergy Uncoded 04/05/18 05:19 General SHAWN: 3 Review of Systems Review of Systems Unobtainable due to (nonverbal) Exam Const Orientation: alert Limitations: altered mental status Other: Patient shaking full body HENMT Head: normocephalic General nose exam: nasal discharge bloody (dired blood) on the right Face and sinus: face symmetric Mouth: moist mucous membranes Eyes Conjunctivae: normal conjunctivae Sclera: normal sclerae EOM: EOM intact bilaterally Neck Neck: trachea midline and supple Resp Effort & Inspection: tachypneic Auscultation: clear to auscultation bilaterally, no rales, no rhonchi and no wheezes Cardio Jugular venous pressure: no JVD Rate: regular rate and tachycardic Rhythm: regular rhythm GI Palpation: soft, not firm, no guarding, no masses, not rigid and nontender Other: peg intact Skin General skin exam: other (diaphoretic) Rashes: rashes noted (stage 2 pressure ulcer coccyx with no cellulitis ) Neuro General: alert, awake and other (spasticity noted) Motor: tremor (full body) Extrem General: no edema Course Lab/Test Results Lab/Test Results: 04/05/18 04:18 Blood Blood Culture - Pending 04/05/18 04:18 Blood Blood Culture - Pending
[2018-04-05] MEDS: Lactated Ringers 1,000 ML 1000 ML IV (04:39)
[2018-04-05 04:51] LABS: BE (Venous) 9.2 mmol/L (-3-3); HCO3 (Venous) 35 mmol/L (22-28); O2 Sat (Venous) 74 % (70-80); TCO2 (Venous) 33 mmol/L (22-29); pCO2 (Venous) 64 mm/Hg (34-47); pH (Venous) 7.34 (7.32-7.43); pO2 (Venous) 42 mm/Hg (28-44)
[2018-04-05 04:53] LABS: Abs Immature Grans 0.02 k/cumm (0.0-0.09); Absolute Basophil Count 0.05 k/cumm (0.0-0.2); Absolute Eosinophil Count 0.16 k/cumm (0.0-0.7); Absolute Lymphocyte Count 2.09 k/cumm (1.2-3.4); Absolute Monocyte Count 1.17 k/cumm (0.11-0.7); Absolute Neutrophil Count 4.85 k/cumm (1.2-6.7); Basophils % 0.6; Eosinophils % 1.9; HCT 37.1 % (36.0-46.0); HGB 11.8 g/dL (12.0-15.5); Immature Grans % 0.2; Lymphocytes % 25.1; Mean Corp. HGB Concentration 31.8 g/dL (32.0-36.0); Mean Corpuscular Hemoglobin 30.7 pg (27.0-33.0); Mean Corpuscular Volume 96.6 fL (80-95); Mean Platelet Volume 10.2 fL (8.0-11.0); Neutrophils % 58.2; Platelet Count 281 x1000/uL (130-400); RBC 3.84 m/cumm (4.00-5.20); RBC Distribution Width 14.5 % (11.7-14.6); White Blood Cell Count 8.34 k/cumm (4.4-10.8)
[2018-04-05 04:54] LABS: Lactate-non-spesis 1.3 mmol/L (0.6-1.4)
--- NOTE | 2018-04-05 04:55 | DI.RAD_ITS ---
SYMPTOM/DIAGNOSIS: SHORTNESS OF BREATH PORTABLE AP CHEST: 0455 HOURS 04/05/18 The heart is not enlarged. The lungs are clear. No pleural effusion identified on this frontal film. CONCLUSION: No evidence of acute disease.
--- NOTE | 2018-04-05 05:11 | DI.VRAD_ITS ---
EXAM: XR Chest, 1 View EXAM DATE/TIME: 04/05/2018 4:19 AM CLINICAL HISTORY: 52 years old, female; Signs and symptoms; Shortness of breath; Patient HX: SOB, diaphoretic TECHNIQUE: XR of the chest, 1 view. COMPARISON: SC XR PORTABLE CHEST AP 03/31/2018 12:45 PM FINDINGS: Lungs: Unremarkable. No consolidation. Pleural space: Unremarkable. No pleural effusion. No pneumothorax. Heart/Mediastinum: Unremarkable. No cardiomegaly. Bones/joints: Unremarkable. IMPRESSION: No acute findings. Dictated and Authenticated by: Yonis Abreu MD. Ordering:DONNIE ROBISON MD
[2018-04-05 05:16] LABS: ALT 15 U/L (12-78); AST 18 U/L (15-37); Albumin 3.8 g/dL (3.4-5.0); Alkaline Phosphatase 107 U/L (46-116); Anion Gap 5.3 mmol/L (3-11); BUN 34 mg/dL (7-18); Bilirubin, Total 0.4 mg/dL (0.2-1.0); CO2 34.7 mmol/L (21.0-32.0); CREATININE 0.68 mg/dL (0.55-1.02); Calcium 9.8 mg/dL (8.5-10.1); Chloride 101 mmol/L (98-107); Glucose 123 mg/dL (70-100); Potassium 4.8 mmol/L (3.5-5.1); Sodium 141 mmol/L (136-145); Total Protein 8.1 g/dL (6.4-8.2)
[2018-04-05 05:23] LABS: NT-proBNP 1576 pg/mL; Troponin I < 0.02 ng/mL (0.00-0.06)
--- NOTE | 2018-04-05 05:36 | DI.CT_ITS ---
SYMPTOM/DIAGNOSIS: SHORTNESS OF BREATH, TACHYCARDIA CT ANGIOGRAPHY CHEST: 04/05/18 CT angiography was performed with multi slice acquisition and multi planar and 3D reconstruction. CT angiography of the chest was attempted. An IV had been placed and the IV infiltrated on contrast injection. The patient was unable to remain motionless for this examination. Examination can be attempted again if a stable IV can be placed. However, I would note that the patient may need to be sedated in order to obtain a scan due to her inability to hold still.
--- NOTE | 2018-04-05 07:01 | W.PM.HP.N ---
Date of service: 04/05/18 Time of Service: 07:01 Assessment and Plan (1) Tachypnea: Current visit: No Status: Acute patient has elevated d-dimer and therefore will need repeat complete CTA to rule out PE. In the interim I will put her on full dose lovenox until she can be ruled out. (2) Acute alteration in mental status: Current visit: No Status: Acute unclear whether medication related (Zyprexa) versus worsening Parkinsonism. patient seemed to improve w/ benadryl which makes me believe that she had some increased cholinergic response (diaphoresis, tachypnea, altered mental status). I am keeping her on benadryl for next 24hr to see how she responds and get Dr. Mckoy's opinion about adjustment in her Parkinsonism medications. (3) Parkinsons disease: Current visit: No Status: Chronic continue higher dosing of Rytary (levodopa/carbidopa) at 195 mg tid as per recent adjustment by Dr. Mckoy. Consider palliative care consult in light of her progressive decline in her ADL's and her dismal prognosis of her variant of Parkinsonism which has been poorly responsive to med changes. 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 Patient had more recent hospitalizations at [facility] in January and February for aspiration pneumonias as well as placement of PEG tube and sepsis. She is now had recurrent emergency room visits on 3 occasions in the past week because of altered mental status associated with alleged hypoxia. She was seen by Dr. Brennon Hahn on March 30, 2018 and after chest x-ray and laboratory workup and physical examination she was found to be medically stable and exhibited no hypoxemia and no significant radiologic or laboratory abnormalities that warranted admission. She was subsequently seen by Dr. Rosalino Kelsey March 31, 2018 with similar complaints of difficulty breathing and hypoxemia. [facility] and because of her severe tremors from her parkinsonism they were not getting an accurate peripheral pulse oximetry reading. Again Dr. Kelsey did a workup and could not find any acute medical reason for admitting her but he gave her IV fluids because she appear to be mildly dehydrated. Tonight she [facility] the emergency room because of alleged hypoxemia along with tachypnea and acute mental status change. She had been finishing out a course of Levaquin which was started for an alleged pneumonia on March 30, 2018 although she had no fever and no leukocytosis and no chest x-ray during that emergency room workup. Patient was recently placed on a course of Zyprexa for acute behavioral changes for few day (03/31-04/02). Tonight during workup in the ER she was noted to be tachypneic (RR 32), diaphoretic and with increased tremors and with decreased attention. Labs were remarkable for elevated BNP of 1500, with normal troponin, lactate, CBC. CMP was remarkable for elevated BUN 34 with normal creatinine 0.68. Because of the alleged hypoxemia (SpO2 in the ER was 100% on RA) and tachypnea she was ordered a CTA chest but her iv infiltrated and the test was not completed. D-dimer was ordered. She is now admitted for evaluation of her tachypnea, and acute mental status change. While in the ER she was given benadryl 50 mg iv which improved her tremors and her diaphoresis. 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) Ambulatory dysfunction (Chronic) Recurrent aspiration events (Chronic) Failure to thrive (Chronic) Seizure (Resolved) NMS (neuroleptic malignant syndrome) (Resolved) Abnormal EKG (Resolved) Hyperlipidemia type III (Chronic) Anemia (Chronic) History of DIC syndrome (Resolved) Toxic metabolic encephalopathy (Resolved) UTI (urinary tract infection) (Resolved) Dysphagia (Chronic) Encephalopathy acute (Resolved) Fall (Chronic) Acute respiratory failure with hypoxia (Resolved) Pneumonia (Resolved) Anemia (Chronic) Acute kidney injury (Resolved) Parkinsons disease (Chronic) Secondary rhabdomyolysis (Resolved) Non-ST elevation [place] (NSTEMI) (Resolved) Essential hypertension (Chronic) Hyperlipidemia (Chronic) Obesity (Chronic) Osteoarthritis (Chronic) Parkinson's disease (Chronic) PEG (percutaneous endoscopic gastrostomy) adjustment/replacement/removal (Resolved) Social History lives independently: No number of children: 2 number of grandchildren: 1 Smoking/Tobacco Use Status: Never alcohol intake: never substance use type: does not use Surgical History History of vaginal hysterectomy (Resolved) Meds Home Medications Medication Instructions Recorded Confirmed Type baclofen 10 mg FEEDING TUBE HS prn #30 07/25/16 04/05/18 History tab-cap amantadine HCl 200 mg FEEDING TUBE BID 08/15/16 04/05/18 History acetaminophen [Tylenol] 650 mg FEEDING TUBE Q4H PRN PRN 11/15/16 04/05/18 History tab-cap fluoxetine 20 mg FEEDING TUBE DAILY tab-cap 11/15/16 04/05/18 History polyethylene glycol 3350 17 gm FEEDING TUBE DAILY PRN 08/15/17 04/05/18 History propranolol 40 mg FEEDING TUBE DAILY 12/25/17 04/05/18 History calcium carbonate 1 tab FEEDING TUBE .Q6H, PRN PRN 01/04/18 04/05/18 History docusate sodium 100 mg BID PRN 01/04/18 04/05/18 History melatonin 3 mg FEEDING TUBE HS PRN 01/04/18 04/05/18 History ropinirole [Requip] 0.25 mg FEEDING TUBE TID 03/07/18 04/05/18 History acetaminophen 650 mg LA Q4H PRN PRN 03/08/18 04/05/18 History lactose-reduced food with fibr 1 FEEDING TUBE QID 03/08/18 History [Jevity 1.2 Kamlesh] naproxen sodium 440 mg FEEDING TUBE BID 03/08/18 04/05/18 History bisacodyl 10 mg rectal suppository 10 mg LA ONCE 04/02/18 04/05/18 History ipratropium-albuterol 0.5 mg-3 3 ml IH Q4H ml 04/02/18 04/05/18 History mg(2.5 mg base)/3 mL nebulization soln omeprazole 20 mg capsule,delayed 20 mg FEEDING TUBE DAILY 04/02/18 04/05/18 History release carbidopa-levodopa [Rytary] 1 cap PO QID #1 cap 04/06/18 04/05/18 Rx Allergies Allergy/AdvReac Type Severity Reaction Status Date / Time environmental Allergy Uncoded 04/05/18 05:19 Exam Const General: in distress moderate, anxious, diaphoretic, frail appearing and ill appearing chronically Nutritional Appearance: malnourished Orientation: alert, awake, not oriented to person, not oriented to place, not oriented to time and confused Limitations: altered mental status HENMT Head: normal to inspection Ears: hearing grossly normal bilaterally General nose exam: nasal discharge bloody Eyes General: appearance normal, both eyes and all related structures Visual Laura: normal visual laura by confrontation Alignment and Position: alignment normal Periorbital: periorbital findings normal Eyelids: eyelids normal Conjunctivae: conjunctivae normal Sclera: sclerae normal Cornea: corneas normal Pupils: PERRL EOM: EOM intact bilaterally Neck Neck: normal visual inspection, full ROM, no lymphadenopathy, no meningeal signs, trachea midline and no JVD Thyroid: thyroid normal Carotids: normal carotid upstroke Lymphatic: no lymphadenopathy noted Resp Effort & Inspection: tachypneic Auscultation: clear to auscultation bilaterally Cardio Jugular venous pressure: no JVD Palpation: normal PMI Rate: regular rate Rhythm: regular rhythm Pulses: normal peripheral pulses GI Inspection: normal to inspection Palpation: soft and no hepatosplenomegaly Percussion: normal to percussion Auscultation: normal bowel sounds Other: PEG tube in place w/ small amount of discharge around ostomy Back/Spine/Pelvis Back: no CVA tenderness Cervical Spine: cervical ROM normal Thoracic/Lumbar Spine: thoracic and lumbar spine normal to inspection Skin General skin exam: no rashes or lesions noted and other (diaphoretic) Neuro General: alert, awake, not oriented x3 and moves all extremities Cranial Nerves: PERRL, EOM intact bilaterally, no nystagmus and able to rotate head bilaterally Cognition: abnormal cognition Speech: abnormal speech (paucity of speech and hypophonia secondary to her Parkinsonism) Motor: tremor and muscle tone abnormal (increased muscle tone in all limbs with spasticity in her legs) Sensory Exam: no sensory deficits noted Extrem General: normal to inspection, no joint enlargement and no clubbing, cyanosis or edema Psych Mental Status: other (decreased verbal response, staring into space until after she was given benadryl then tremors improved and she became more verbal answering single word answers) Speech and Movement: delayed speech Mood: other (decreased verbal response, staring into space until after she was given benadryl then tremors improved and she became more verbal answering single word answers) Affect: anxious affect Results Labs : 04/06/18 07:00 04/06/18 07:00 Laboratory Results - last 24 hr 04/05/18 04/05/18 04/05/18 04:25 04:43 04:43 WBC 8.34 RBC 3.84 L Hgb 11.8 L Hct 37.1 MCV 96.6 H MCH 30.7 MCHC 31.8 L RDW 14.5 Plt Count 281 MPV 10.2 Immature Gran % 0.2 Neutrophils % 58.2 Lymphocytes % 25.1 Monocytes % 14.0 Eosinophils % 1.9 Basophils % 0.6 Absolute Neutrophils 4.85 Absolute Lymphocytes 2.09 Absolute Monocytes 1.17 H Absolute Eosinophils 0.16 Absolute Basophils 0.05 VBG pH VBG pCO2 VBG pO2 VBG HCO3 VBG Total CO2 VBG O2 Saturation VBG Base Excess Sodium 141 Potassium 4.8 Chloride 101 Carbon Dioxide 34.7 H Anion Gap 5.3 BUN 34 H Creatinine 0.68 Estimated GFR/1.73 m2 >= 60.00 Glucose 123 H Lactate Calcium 9.8 Total Bilirubin 0.4 AST 18 ALT 15 Alkaline Phosphatase 107 Troponin I NT-Pro-B Natriuret Pep Total Protein 8.1 Albumin 3.8 Urine Color Yellow Urine Clarity Clear Urine pH 7.0 Ur Specific [place] 1.025 Urine Protein Negative Urine Ketones Negative Urine Blood Negative Urine Nitrite Negative Urine Bilirubin Negative Urine Urobilinogen 1.0 H Ur Leukocyte Esterase Negative Urine Glucose Negative 04/05/18 04/05/18 04/05/18 04:43 04:43 04:43 WBC RBC Hgb Hct MCV MCH MCHC RDW Plt Count MPV Immature Gran % Neutrophils % Lymphocytes % Monocytes % Eosinophils % Basophils % Absolute Neutrophils Absolute Lymphocytes Absolute Monocytes Absolute Eosinophils Absolute Basophils VBG pH 7.34 VBG pCO2 64 H VBG pO2 42 VBG HCO3 35 H VBG Total CO2 33 H VBG O2 Saturation 74 VBG Base Excess 9.2 H Sodium Potassium Chloride Carbon Dioxide Anion Gap BUN Creatinine Estimated GFR/1.73 m2 Glucose Lactate 1.3 Calcium Total Bilirubin AST ALT Alkaline Phosphatase Troponin I < 0.02 NT-Pro-B Natriuret Pep 1576 H Total Protein Albumin Urine Color Urine Clarity Urine pH Ur Specific [place] Urine Protein Urine Ketones Urine Blood Urine Nitrite Urine Bilirubin Urine Urobilinogen Ur Leukocyte Esterase Urine Glucose Last Vital Signs Temp 36.7 C 04/05/18 04:08 Pulse 119 H 04/05/18 06:46 Resp 29 H 04/05/18 06:50 BP 153/66 H 04/05/18 06:46 Pulse Ox 100 04/05/18 06:50
--- NOTE | 2018-04-05 07:05 | HPE_ITS ---
Date of service: 04/05/18 Time of Service: 07:01 Assessment and Plan (1) Tachypnea: Current visit: No Status: Acute patient has elevated d-dimer and therefore will need repeat complete CTA to rule out PE. In the interim I will put her on full dose lovenox until she can be ruled out. (2) Acute alteration in mental status: Current visit: No Status: Acute unclear whether medication related (Zyprexa) versus worsening Parkinsonism. patient seemed to improve w/ benadryl which makes me believe that she had some increased cholinergic response (diaphoresis, tachypnea, altered mental status). I am keeping her on benadryl for next 24hr to see how she responds and get Dr. Mckoy's opinion about adjustment in her Parkinsonism medications. (3) Parkinsons disease: Current visit: No Status: Chronic continue higher dosing of Rytary (levodopa/carbidopa) at 195 mg tid as per recent adjustment by Dr. Mckoy. Consider palliative care consult in light of her progressive decline in her ADL's and her dismal prognosis of her variant of Parkinsonism which has been poorly responsive to med changes. 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 Patient had more recent hospitalizations at [facility] in January and February for aspiration pneumonias as well as placement of PEG tube and sepsis. She is now had recurrent emergency room visits on 3 occasions in the past week because of altered mental status associated with alleged hypoxia. She was seen by Dr. Brennon Hahn on March 30, 2018 and after chest x-ray and laboratory workup and physical examination she was found to be medically stable and exhibited no hypoxemia and no significant radiologic or laboratory abnormalities that warranted admission. She was subsequently seen by Dr. Rosalino Kelsey March 31, 2018 with similar complaints of difficulty breathing and hypoxemia. Turns out that the residential does not have any ear probe and because of her severe tremors from her parkinsonism they were not getting an accurate peripheral pulse oximetry reading. Again Dr. Kelsey did a workup and could not find any acute medical reason for admitting her but he gave her IV fluids because she appear to be mildly dehydrated. Tonight she was sent by the residential to the emergency room because of alleged hypoxemia along with tachypnea and acute mental status change. She had been finishing out a course of Levaquin which was started for an alleged pneumonia on March 30, 2018 although she had no fever and no leukocytosis and no chest x-ray during that emergency room workup. Patient was recently placed on a course of Zyprexa for acute behavioral changes for few day (03/31-04/02). Tonight during workup in the ER she was noted to be tachypneic (RR 32), diaphoretic and with increased tremors and with decreased attention. Labs were remarkable for elevated BNP of 1500, with normal troponin, lactate, CBC. CMP was remarkable for elevated BUN 34 with normal creatinine 0.68. Because of the alleged hypoxemia (SpO2 in the ER was 100% on RA) and tachypnea she was ordered a CTA chest but her iv infiltrated and the test was not completed. D-dimer was ordered. She is now admitted for evaluation of her tachypnea, and acute mental status change. While in the ER she was given benadryl 50 mg iv which improved her tremors and her diaphoresis. 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) Ambulatory dysfunction (Chronic) Recurrent aspiration events (Chronic) Failure to thrive (Chronic) Seizure (Resolved) NMS (neuroleptic malignant syndrome) (Resolved) Abnormal EKG (Resolved) Hyperlipidemia type III (Chronic) Anemia (Chronic) History of DIC syndrome (Resolved) Toxic metabolic encephalopathy (Resolved) UTI (urinary tract infection) (Resolved) Dysphagia (Chronic) Encephalopathy acute (Resolved) Fall (Chronic) Acute respiratory failure with hypoxia (Resolved) Pneumonia (Resolved) Anemia (Chronic) Acute kidney injury (Resolved) Parkinsons disease (Chronic) Secondary rhabdomyolysis (Resolved) Non-ST elevation [place] (NSTEMI) (Resolved) Essential hypertension (Chronic) Hyperlipidemia (Chronic) Obesity (Chronic) Osteoarthritis (Chronic) Parkinson's disease (Chronic) PEG (percutaneous endoscopic gastrostomy) adjustment/replacement/removal ( Resolved) Social History lives independently: No number of children: 2 number of grandchildren: 1 Smoking/Tobacco Use Status: Never alcohol intake: never substance use type: does not use Surgical History History of vaginal hysterectomy (Resolved) Meds Home Medications Medication Instructions Recorded Confirmed Type baclofen 10 mg FEEDING TUBE HS prn #30 07/25/16 04/05/18 History tab-cap amantadine HCl 200 mg FEEDING TUBE BID 08/15/16 04/05/18 History acetaminophen [Tylenol] 650 mg FEEDING TUBE Q4H PRN PRN 11/15/16 04/05/18 History tab-cap fluoxetine 20 mg FEEDING TUBE DAILY tab-cap 11/15/16 04/05/18 History polyethylene glycol 3350 17 gm FEEDING TUBE DAILY PRN 08/15/17 04/05/18 History propranolol 40 mg FEEDING TUBE DAILY 12/25/17 04/05/18 History calcium carbonate 1 tab FEEDING TUBE .Q6H, PRN PRN 01/04/18 04/05/18 History docusate sodium 100 mg BID PRN 01/04/18 04/05/18 History melatonin 3 mg FEEDING TUBE HS PRN 01/04/18 04/05/18 History ropinirole [Requip] 0.25 mg FEEDING TUBE TID 03/07/18 04/05/18 History acetaminophen 650 mg NM Q4H PRN PRN 03/08/18 04/05/18 History lactose-reduced food with fibr 1 FEEDING TUBE QID 03/08/18 History [Jevity 1.2 Kamlesh] naproxen sodium 440 mg FEEDING TUBE BID 03/08/18 04/05/18 History bisacodyl 10 mg rectal suppository 10 mg NM ONCE 04/02/18 04/05/18 History ipratropium-albuterol 0.5 mg-3 3 ml IH Q4H ml 04/02/18 04/05/18 History mg(2.5 mg base)/3 mL nebulization soln omeprazole 20 mg capsule,delayed 20 mg FEEDING TUBE DAILY 04/02/18 04/05/18 History release carbidopa-levodopa [Rytary] 1 cap PO QID #1 cap 04/06/18 04/05/18 Rx Allergies Allergy/AdvReac Type Severity Reaction Status Date / Time environmental Allergy Uncoded 04/05/18 05:19 Exam Const General: in distress moderate, anxious, diaphoretic, frail appearing and ill appearing chronically Nutritional Appearance: malnourished Orientation: alert, awake, not oriented to person, not oriented to place, not oriented to time and confused Limitations: altered mental status HENMT Head: normal to inspection Ears: hearing grossly normal bilaterally General nose exam: nasal discharge bloody Eyes General: appearance normal, both eyes and all related structures Visual Laura: normal visual laura by confrontation Alignment and Position: alignment normal Periorbital: periorbital findings normal Eyelids: eyelids normal Conjunctivae: conjunctivae normal Sclera: sclerae normal Cornea: corneas normal Pupils: PERRL EOM: EOM intact bilaterally Neck Neck: normal visual inspection, full ROM, no lymphadenopathy, no meningeal signs , trachea midline and no JVD Thyroid: thyroid normal Carotids: normal carotid upstroke Lymphatic: no lymphadenopathy noted Resp Effort & Inspection: tachypneic Auscultation: clear to auscultation bilaterally Cardio Jugular venous pressure: no JVD Palpation: normal PMI Rate: regular rate Rhythm: regular rhythm Pulses: normal peripheral pulses GI Inspection: normal to inspection Palpation: soft and no hepatosplenomegaly Percussion: normal to percussion Auscultation: normal bowel sounds Other: PEG tube in place w/ small amount of discharge around ostomy Back/Spine/Pelvis Back: no CVA tenderness Cervical Spine: cervical ROM normal Thoracic/Lumbar Spine: thoracic and lumbar spine normal to inspection Skin General skin exam: no rashes or lesions noted and other (diaphoretic) Neuro General: alert, awake, not oriented x3 and moves all extremities Cranial Nerves: PERRL, EOM intact bilaterally, no nystagmus and able to rotate head bilaterally Cognition: abnormal cognition Speech: abnormal speech (paucity of speech and hypophonia secondary to her Parkinsonism) Motor: tremor and muscle tone abnormal (increased muscle tone in all limbs with spasticity in her legs) Sensory Exam: no sensory deficits noted Extrem General: normal to inspection, no joint enlargement and no clubbing, cyanosis or edema Psych Mental Status: other (decreased verbal response, staring into space until after she was given benadryl then tremors improved and she became more verbal answering single word answers) Speech and Movement: delayed speech Mood: other (decreased verbal response, staring into space until after she was given benadryl then tremors improved and she became more verbal answering single word answers) Affect: anxious affect Results Labs : 04/06/18 07:00 04/06/18 07:00 Laboratory Results - last 24 hr 04/05/18 04/05/18 04/05/18 04:25 04:43 04:43 WBC 8.34 RBC 3.84 L Hgb 11.8 L Hct 37.1 MCV 96.6 H MCH 30.7 MCHC 31.8 L RDW 14.5 Plt Count 281 MPV 10.2 Immature Gran % 0.2 Neutrophils % 58.2 Lymphocytes % 25.1 Monocytes % 14.0 Eosinophils % 1.9 Basophils % 0.6 Absolute Neutrophils 4.85 Absolute Lymphocytes 2.09 Absolute Monocytes 1.17 H Absolute Eosinophils 0.16 Absolute Basophils 0.05 VBG pH VBG pCO2 VBG pO2 VBG HCO3 VBG Total CO2 VBG O2 Saturation VBG Base Excess Sodium 141 Potassium 4.8 Chloride 101 Carbon Dioxide 34.7 H Anion Gap 5.3 BUN 34 H Creatinine 0.68 Estimated GFR/1.73 m2 >= 60.00 Glucose 123 H Lactate Calcium 9.8 Total Bilirubin 0.4 AST 18 ALT 15 Alkaline Phosphatase 107 Troponin I NT-Pro-B Natriuret Pep Total Protein 8.1 Albumin 3.8 Urine Color Yellow Urine Clarity Clear Urine pH 7.0 Ur Specific [place] 1.025 Urine Protein Negative Urine Ketones Negative Urine Blood Negative Urine Nitrite Negative Urine Bilirubin Negative Urine Urobilinogen 1.0 H Ur Leukocyte Esterase Negative Urine Glucose Negative 04/05/18 04/05/18 04/05/18 04:43 04:43 04:43 WBC RBC Hgb Hct MCV MCH MCHC RDW Plt Count MPV Immature Gran % Neutrophils % Lymphocytes % Monocytes % Eosinophils % Basophils % Absolute Neutrophils Absolute Lymphocytes Absolute Monocytes Absolute Eosinophils Absolute Basophils VBG pH 7.34 VBG pCO2 64 H VBG pO2 42 VBG HCO3 35 H VBG Total CO2 33 H VBG O2 Saturation 74 VBG Base Excess 9.2 H Sodium Potassium Chloride Carbon Dioxide Anion Gap BUN Creatinine Estimated GFR/1.73 m2 Glucose Lactate 1.3 Calcium Total Bilirubin AST ALT Alkaline Phosphatase Troponin I < 0.02 NT-Pro-B Natriuret Pep 1576 H Total Protein Albumin Urine Color Urine Clarity Urine pH Ur Specific [place] Urine Protein Urine Ketones Urine Blood Urine Nitrite Urine Bilirubin Urine Urobilinogen Ur Leukocyte Esterase Urine Glucose Last Vital Signs Temp 36.7 C 04/05/18 04:08 Pulse 119 H 04/05/18 06:46 Resp 29 H 04/05/18 06:50 BP 153/66 H 04/05/18 06:46 Pulse Ox 100 04/05/18 06:50
[2018-04-05] MEDS: diphenhydrAMINE 50 MG/ML VIAL (07:14)
[2018-04-05 07:40] LABS: D-Dimer 1246 ng/mlFEU (<500)
--- NOTE | 2018-04-05 08:09 | PHARADMIT ---
Admission Pharmacy Clinical Review ACUTE MENTAL STATUS CHANGE, AUTONOMIC HYPERACTIVITY Code Status Full Code Current Weight Wgt-53.8 kg Renally Cleared and Narrow Therapeutic Index Meds CrCl~ 6.5mL/min Meds-OK QTc Value / Action Taken QTc-465 NA BP Control, Fever BP- 137/80 Tmax- 36.7C Electrolytes reviewed Na-141 K+4.8 DVT Prophylaxis Lovenox Opiate Usage / Scheduled Bowel Regimen Ordered no Yes Plt/SCr for Heparin / Enoxaparin Plts -281 SCr-.68 INR for Warfarin na H/H stable, WBC/Bands H&H- 11.8/37.1 WBC- 8.34 Antibiotic appropriateness none Cultures and Sensitivities [id number], Blod-Pending Surgical ABX d/c within 24 hr na DM control / Insulin Dosing BG-123 Heart Failure (Check EF%) (MARJORIE's, B-Block, Diuretics) Inderal IV to PO Switch No Home Meds Reviewed Yes Home Meds Not Ordered Nam Sanchez-Natriuret [id number]
--- NOTE | 2018-04-05 09:28 | DI.CT_ITS ---
SYMPTOMS/DIAGNOSIS: TACHYPNEA, ELEVATED D DIMER CT ANGIOGRAPHY CHEST: CT angiography was performed with multi slice acquisition and multi planar and 3D reconstruction. CT Angiography of the chest was performed with a bolus infusion of 100 cc's of Omnipaque 350. Images obtained through the upper abdomen show grossly unremarkable appearance of liver, spleen, pancreas, adrenals and visualized portions of the kidneys. There is no evidence of pulmonary embolic disease. No thoracic aortic dissection or aneurysm. The tracheobronchial tree appears intact. The lungs are grossly clear except for right lower lobe small calcified pulmonary nodules seen superiorly. No pleural effusion. CONCLUSION: No evidence of pulmonary embolic disease.
[2018-04-05] MEDS: Propranolol 40 MG TAB NG (09:33)
--- NOTE | 2018-04-05 09:42 | W.NEUROCONSU ---
Date of service: 04/05/18 Assessment and Plan (1) Parkinsons disease: Current visit: No Status: Chronic Ms. So is a 52-year-old, right-handed woman with an advanced and severe form of Parkinson's disease who was acutely ill in December 2017 and subsequently has had worsening dysphagia with multiple episodes of aspiration along with frequent episodes of altered mental status including agitation. She has not received her Sinemet this morning. Other than being more rigid and bradykinetic, she seems to be at baseline in my opinion. She was somewhat sleepy and thus I could not pursue full cognitive testing, but overall appears stable. I have not witnessed any of these altered mental status episodes. It seems some of them may be associated with autonomic dysfunction such as diaphoresis and increased tremors. Those symptoms seem to respond well to Benadryl in the emergency room. Other episodes have been associated with hypoxia +/- evidence of aspiration pneumonia. I do not think that her current symptoms are due to the increase in Rytary that I made earlier this week as she was having these episodes prior to the increase. Intermittent spells of altered mental status is certainly concerning for unrecognized seizures, especially in light of the fact that she had had a questionable seizure in December, though, she does not have any real reason to developed epilepsy at this point in time. She is currently also be worked up for PE. Additionally, given her recent illness and significant delcine as well as the fact that she is now NPO without much hope to regain feeding status, I am sure a mood component must be in play. It is unclear how much of this may be playing a role in her current symptoms. She was previously on Zyprexa for agitation. This can worsen Parkinsons. If she needs medications for agitation, Seroquel or Pimvanserin would be good options. Otherwise, fluoxetine may need to be increased. Psychiatry may be helpful as well. She has previously met with Palliative Care prior to her December illness, and meeting with them may be helpful as well. I recommend restarting her medications. I would continue Rytary at the 195 mg 3 times daily. Let's get an EEG. I did not get a good look at her mouth today. Earlier this week it was very dry with some questionable thrush. I will try to check that later. Otherwise, I will think about the Benadryl situation. I will also contact Parkinson's specialist Dr. Au at [facility] to see if he has any recommendations. Addendum #1 (04/05/18 at 1230): EEG performed. Normal in the awake state only and with PS. No evidence of encephalopathy. Addendum #2 (04/05/18 at 1600): I spoke with Dr. Au who thought spells could be secondary to mixed motor/non-motor off-time events. He recommended treatment with an oral dissintegrating tablet of Sinemet 25/100mg via PEG for future spells. He was against Benadryl given anticholinergic affects which may accumulate over time. He was also in agreement to slow increase back to previous Rytary regimen. Will plan to increase to QID in 2-3 weeks at follow-up as scheduled. Addendum #3 (04/05/18 at 1630): After repeat exam and discussion with Jaylyn and primary team, recommend increasing Rytary to QID starting tomorrow. She should follow-up as scheduled in the neurology clinic. History of Present Illness Chief Complaint: Altered Mental Status Narrative: Handedness: right. HPI: Ms. 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 She has had a slow decline over the years, but has had a much more significant decline this summer/fall secondary to a major event of illness in December. At that time, she developed a significant fever along with altered mental status, tremor and spasticity. She was acutely septic with DIC, JOSEPH, rhabdomyolysis, ?seizure activity, and demand NSTEMI for which she was transferred to [facility]. No source for the sepsis was found. Differential diagnosis included serotonin syndrome (no recent med changes) as well as neuroleptic malignant syndrome (though no documentation of missed medications). She underwent a PEG placement on 02/11/2018 for ongoing dysphagia and failure to thrive, along with modified PO intake per ST. This was complicated by a preprocedure acute respiratory distress with transient cardiac arrest secondary to inadvertent intubation of the right mainstem bronchus. She had a brief admission in February for acute respiratory distress secondary to a witnessed episode of aspiration. She has been NPO since. She had an EKG in mid February that was concerning for A. fib but not clear due to significant artifact. She had another admission 03/08/18-03/14/18 for sepsis with fever, rigors, and AMS that was thought to be secondary to aspiration. Her tube feeds were changed to bolus. She had 2 ER visits last week for altered mental status and fever with the first and dehydration with the second. She now presents again with similar issues of altered mental status/unresponsiveness with questionable hypoxia at her assisted. In the ER, she was initially found to be nonverbal. She had significant tremors and was diaphoretic but without fever. She was given IV Benadryl and seemed to respond after that along with a reduction in her tremors. Laboratory workup was unremarkable except for an elevated d-dimer. A chest x-ray was unremarkable. A CTA of the chest was attempted but unfortunately her IV infiltrated. I recently saw her on 04/02/2018 at which time I recommended increasing her Rytary from 145 mg 3 times daily to 195 mg 3 times daily for ongoing rigidity. Prior to her hospitalization in December, she had never had periods of altered mental status. She did have periods of diaphoresis and increased tremors periodically which was felt to be secondary to autonomic dysfunction from her Parkinson's disease. She was on Zyprexa after her hospitalization in December for agitation. That was apparently stopped April 02. She had a brain MRI on January 07, 2018 while at [facility]. I reviewed the images again today. She has patchy pontine T2 hyperintensities as well as moderate generalized cerebral atrophy with ventricular enlargement. This is overall stable compared to previous MRI from 2012. Consults Requesting physician: Alex Kong Review of Systems Review of Systems Unobtainable due to mental status [facility] Family History Mother AMI (acute myocardial infarction) Father AMI (acute myocardial infarction) Medical History 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) Ambulatory dysfunction (Chronic) Recurrent aspiration events (Chronic) Failure to thrive (Chronic) Seizure (Resolved) NMS (neuroleptic malignant syndrome) (Resolved) Abnormal EKG (Resolved) Hyperlipidemia type III (Chronic) Anemia (Chronic) History of DIC syndrome (Resolved) Toxic metabolic encephalopathy (Resolved) UTI (urinary tract infection) (Resolved) Dysphagia (Chronic) Encephalopathy acute (Resolved) Fall (Chronic) Acute respiratory failure with hypoxia (Resolved) Pneumonia (Resolved) Anemia (Chronic) Acute kidney injury (Resolved) Parkinsons disease (Chronic) Secondary rhabdomyolysis (Resolved) Non-ST elevation ND (NSTEMI) (Resolved) Essential hypertension (Chronic) Hyperlipidemia (Chronic) Obesity (Chronic) Osteoarthritis (Chronic) Parkinson's disease (Chronic) PEG (percutaneous endoscopic gastrostomy) adjustment/replacement/removal (Resolved) Social History lives independently: No number of children: 2 number of grandchildren: 1 Smoking/Tobacco Use Status: Never alcohol intake: never substance use type: does not use Surgical History History of vaginal hysterectomy (Resolved) Visit Medication and Allergies Active Medications Generic Name Dose Route Start Last Admin Trade Name Freq PRN Reason Stop Dose Admin Acetaminophen 650 mg 04/05/18 07:24 Tylenol AR Q4H PRN PRN Acetaminophen 650 mg 04/05/18 07:42 Tylenol NG Q4H PRN PRN Albuterol Sulfate 2.5 mg 04/05/18 07:24 Proventil Updraft UPD Q2H PRN PRN Amantadine HCl 200 mg 04/05/18 08:30 04/05/18 09:33 Symmetrel NG 200 mg BID TAE Administration Baclofen 10 mg 04/05/18 08:00 Baclofen NG HS prn TAE Calcium Carbonate 500 mg 04/05/18 08:15 Tums NG Q6H PRN PRN Dimethicone/Zinc Oxide 0 gm 04/05/18 07:24 Charla Protect Cream TP PRN PRN Diphenhydramine HCl Confirm 04/05/18 06:41 04/05/18 07:14 Benadryl Injection Administered 50 mg Dose Administration 50 mg .ROUTE .DM PRN Diphenhydramine HCl 50 mg 04/05/18 12:00 Benadryl Injection IVP 04/06/18 00:01 Q6H TAE Docusate Sodium 100 mg 04/05/18 07:42 Colace PO BID PRN Enoxaparin Sodium 40 mg 04/05/18 08:00 Lovenox SC Q24H TAE Fluoxetine HCl 20 mg 04/05/18 08:30 Prozac NG DAILY [facility] Ringer's Solution 1,000 mls @ 100 mls/hr 04/05/18 07:30 IV INFUSION [facility] Melatonin 3 mg 04/05/18 08:38 PO HS PRN PRN Mupirocin 0 gm 04/05/18 08:30 04/05/18 09:37 Bactroban 2% Ointment TP 04/12/18 08:29 1 applic TID TAE Administration Naproxen Sodium 440 mg 04/05/18 08:30 04/05/18 09:33 Aleve NG 440 mg BID TAE Administration Non-Formulary Medication 1 cap 04/05/18 08:30 Carbidopa-Levodopa [Rytary] GT TID TAE Non-Formulary Medication 1 dose pk 04/05/18 08:30 Lactose-Reduced Food With Fibr [Jevity 1.2 Kamlesh] FEEDING TU QID [facility] Omeprazole 20 mg 04/05/18 08:30 Prilosec NG DAILY [facility] Polyethylene Glycol 17 gm 04/05/18 07:42 Miralax NG DAILY PRN Propranolol HCl 40 mg 04/05/18 08:30 04/05/18 09:33 Inderal NG 40 mg DAILY TAE Administration Ropinirole HCl 0.25 mg 04/05/18 14:00 Requip NG TID [facility] Allergies environmental Allergy (Uncoded 04/05/18 05:19) Exam Narrative Exam Narrative: Physical Exam: Rytary not given this am Constitutional: Patient of apparent stated age, well nourished, well developed, no acute distress, moderate hypomima Head and face: no facial or cranial abnormalities Neck: Supple, no meningismus, no occipital tenderness CV: + S1, S2, RRR, no murmur Resp: CTA B/L Abd: soft, nontender, nondistended Ext: No edema. No clubbing or cyanosis. No bony deformity. Neuro: MS/Language/Speech: sleepy, easily arousable; oriented to self and place, able to follow all commands, mod dysarthria with mod hypophonia Motor: Normal bulk. Mild bilateral UE dyskinesias/[id number] tremors. Significant cogwheel rigidity in the UE and mod-severe rigidity in the LE. Moderate bradykinesia throughout, R=L, LE>UE. Formal strength testing difficult to perform as she is so rigid at present. Sensation: Intact to light touch throughout Coordination: unable to test due to rigidity Gait: non-ambulatory Results Last Vital Signs Temp 36.7 C 04/05/18 08:08 Pulse 63 04/05/18 08:08 Resp 24 04/05/18 08:08 BP 136/71 04/05/18 08:08 Pulse Ox 95 04/05/18 08:08 Labs : 04/06/18 07:00 04/06/18 07:00 Laboratory Results - last 24 hr 04/05/18 04/05/18 04/05/18 04:25 04:43 04:43 WBC 8.34 RBC 3.84 L Hgb 11.8 L Hct 37.1 MCV 96.6 H MCH 30.7 MCHC 31.8 L RDW 14.5 Plt Count 281 MPV 10.2 Immature Gran % 0.2 Neutrophils % 58.2 Lymphocytes % 25.1 Monocytes % 14.0 Eosinophils % 1.9 Basophils % 0.6 Absolute Neutrophils 4.85 Absolute Lymphocytes 2.09 Absolute Monocytes 1.17 H Absolute Eosinophils 0.16 Absolute Basophils 0.05 D-Dimer VBG pH VBG pCO2 VBG pO2 VBG HCO3 VBG Total CO2 VBG O2 Saturation VBG Base Excess Sodium 141 Potassium 4.8 Chloride 101 Carbon Dioxide 34.7 H Anion Gap 5.3 BUN 34 H Creatinine 0.68 Estimated GFR/1.73 m2 >= 60.00 Glucose 123 H Lactate Calcium 9.8 Total Bilirubin 0.4 AST 18 ALT 15 Alkaline Phosphatase 107 Troponin I NT-Pro-B Natriuret Pep Total Protein 8.1 Albumin 3.8 Urine Color Yellow Urine Clarity Clear Urine pH 7.0 Ur Specific [place] 1.025 Urine Protein Negative Urine Ketones Negative Urine Blood Negative Urine Nitrite Negative Urine Bilirubin Negative Urine Urobilinogen 1.0 H Ur Leukocyte Esterase Negative Urine Glucose Negative 04/05/18 04/05/18 04/05/18 04:43 04:43 04:43 WBC RBC Hgb Hct MCV MCH MCHC RDW Plt Count MPV Immature Gran % Neutrophils % Lymphocytes % Monocytes % Eosinophils % Basophils % Absolute Neutrophils Absolute Lymphocytes Absolute Monocytes Absolute Eosinophils Absolute Basophils D-Dimer VBG pH 7.34 VBG pCO2 64 H VBG pO2 42 VBG HCO3 35 H VBG Total CO2 33 H VBG O2 Saturation 74 VBG Base Excess 9.2 H Sodium Potassium Chloride Carbon Dioxide Anion Gap BUN Creatinine Estimated GFR/1.73 m2 Glucose Lactate 1.3 Calcium Total Bilirubin AST ALT Alkaline Phosphatase Troponin I < 0.02 NT-Pro-B Natriuret Pep 1576 H Total Protein Albumin Urine Color Urine Clarity Urine pH Ur Specific [place] Urine Protein Urine Ketones Urine Blood Urine Nitrite Urine Bilirubin Urine Urobilinogen Ur Leukocyte Esterase Urine Glucose 04/05/18 04:43 WBC RBC Hgb Hct MCV MCH MCHC RDW Plt Count MPV Immature Gran % Neutrophils % Lymphocytes % Monocytes % Eosinophils % Basophils % Absolute Neutrophils Absolute Lymphocytes Absolute Monocytes Absolute Eosinophils Absolute Basophils D-Dimer 1246 H VBG pH VBG pCO2 VBG pO2 VBG HCO3 VBG Total CO2 VBG O2 Saturation VBG Base Excess Sodium Potassium Chloride Carbon Dioxide Anion Gap BUN Creatinine Estimated GFR/1.73 m2 Glucose Lactate Calcium Total Bilirubin AST ALT Alkaline Phosphatase Troponin I NT-Pro-B Natriuret Pep Total Protein Albumin Urine Color Urine Clarity Urine pH Ur Specific [place] Urine Protein Urine Ketones Urine Blood Urine Nitrite Urine Bilirubin Urine Urobilinogen Ur Leukocyte Esterase Urine Glucose Vital Signs 04/05/18 04:08 04/05/18 04:28 04/05/18 05:02 04/05/18 05:10 04/05/18 05:15 04/05/18 05:20 04/05/18 05:30 04/05/18 05:40 04/05/18 05:41 04/05/18 06:30 04/05/18 06:31 04/05/18 06:40 04/05/18 06:46 04/05/18 06:50 04/05/18 07:00 04/05/18 07:02 04/05/18 07:10 04/05/18 07:16 04/05/18 07:20 04/05/18 07:30 04/05/18 07:31 04/05/18 07:55 04/05/18 08:03 04/05/18 08:08 04/05/18 08:45 04/05/18 11:12 04/05/18 13:10 04/05/18 13:17 04/05/18 13:23 04/05/18 14:03 04/05/18 15:00 Weight 53.8 kg 53.8 kg 53.8 kg BP 143/80 H 152/79 H 109/92 H 153/66 H 132/65 138/90 137/80 137/80 136/71 124/75 Blood Pressure Location Lt radial Respiration 15 44 H 30 H 25 H 23 21 23 10 L 32 H 25 H 29 H 27 H 26 H 17 19 19 24 20 20 24 22 Pulse 62 49 L 60 119 H 93 H 87 90 90 63 98 H 68 99 H Temp 36.7 C 36.7 C 36.7 C 37.3 C Temp Source Skin Tympanic Pulse Oximetry (%) 100 96 99 100 100 100 100 100 99 99 100 100 99 98 98 97 98 98 95 91 L 98 99 90 L 99 Oxygen Flow Rate 4 4 5 4 4 4 2 2 1 1 04/05/18 15:58 04/05/18 18:52 04/06/18 06:07 04/06/18 07:10 04/06/18 07:30 04/06/18 11:12 48 kg 123/81 119/76 105/58 L 119/68 131/93 H 20 19 20 18 16 97 H 97 H 95 H 87 83 37.2 C 37.0 C 37.1 C 37.3 C 37.1 C Tympanic Tympanic Tympanic Tympanic Tympanic 98 99 99 98 99 0 0 2 2 0 Ambulatory Orders Medication Instructions Recorded baclofen 10 mg FEEDING TUBE HS prn #30 07/25/16 tab-cap amantadine HCl 200 mg FEEDING TUBE BID 08/15/16 acetaminophen [Tylenol] 650 mg FEEDING TUBE Q4H PRN PRN 11/15/16 tab-cap fluoxetine 20 mg FEEDING TUBE DAILY tab-cap 11/15/16 polyethylene glycol 3350 17 gm FEEDING TUBE DAILY PRN 08/15/17 propranolol 40 mg FEEDING TUBE DAILY 12/25/17 calcium carbonate 1 tab FEEDING TUBE .Q6H, PRN PRN 01/04/18 docusate sodium 100 mg BID PRN 01/04/18 melatonin 3 mg FEEDING TUBE HS PRN 01/04/18 ropinirole [Requip] 0.25 mg FEEDING TUBE TID 03/07/18 acetaminophen 650 mg AR Q4H PRN PRN 03/08/18 lactose-reduced food with fibr 1 FEEDING TUBE QID 03/08/18 [Jevity 1.2 Kamlesh] naproxen sodium 440 mg FEEDING TUBE BID 03/08/18 bisacodyl 10 mg rectal suppository 10 mg AR ONCE 04/02/18 ipratropium-albuterol 0.5 mg-3 3 ml IH Q4H ml 04/02/18 mg(2.5 mg base)/3 mL nebulization soln omeprazole 20 mg capsule,delayed 20 mg FEEDING TUBE DAILY 04/02/18 release carbidopa-levodopa [Rytary] 1 cap PO QID #1 cap 04/06/18
[2018-04-05] MEDS: Enoxaparin 40 MG/0.4 ML SYR SC (09:48)
[2018-04-05] MEDS: FLUoxetine 20 MG CAP NG (09:48)
[2018-04-05] MEDS: Omeprazole 20 MG CAPCR NG (09:48)
--- NOTE | 2018-04-05 09:50 | NCONE_ITS ---
Date of service: 04/05/18 Assessment and Plan (1) Parkinsons disease: Current visit: No Status: Chronic Ms. So is a 52-year-old, right-handed woman with an advanced and severe form of Parkinson's disease who was acutely ill in December 2017 and subsequently has had worsening dysphagia with multiple episodes of aspiration along with frequent episodes of altered mental status including agitation. She has not received her Sinemet this morning. Other than being more rigid and bradykinetic, she seems to be at baseline in my opinion. She was somewhat sleepy and thus I could not pursue full cognitive testing, but overall appears stable. I have not witnessed any of these altered mental status episodes. It seems some of them may be associated with autonomic dysfunction such as diaphoresis and increased tremors. Those symptoms seem to respond well to Benadryl in the emergency room. Other episodes have been associated with hypoxia +/- evidence of aspiration pneumonia. I do not think that her current symptoms are due to the increase in Rytary that I made earlier this week as she was having these episodes prior to the increase. Intermittent spells of altered mental status is certainly concerning for unrecognized seizures, especially in light of the fact that she had had a questionable seizure in December, though, she does not have any real reason to developed epilepsy at this point in time. She is currently also be worked up for PE. Additionally, given her recent illness and significant delcine as well as the fact that she is now NPO without much hope to regain feeding status, I am sure a mood component must be in play. It is unclear how much of this may be playing a role in her current symptoms. She was previously on Zyprexa for agitation. This can worsen Parkinsons. If she needs medications for agitation , Seroquel or Pimvanserin would be good options. Otherwise, fluoxetine may need to be increased. Psychiatry may be helpful as well. She has previously met with Palliative Care prior to her December illness, and meeting with them may be helpful as well. I recommend restarting her medications. I would continue Rytary at the 195 mg 3 times daily. Let's get an EEG. I did not get a good look at her mouth today. Earlier this week it was very dry with some questionable thrush. I will try to check that later. Otherwise, I will think about the Benadryl situation. I will also contact Parkinson's specialist Dr. Au at [facility] to see if he has any recommendations. Addendum #1 (04/05/18 at 1230): EEG performed. Normal in the awake state only and with PS. No evidence of encephalopathy. Addendum #2 (04/05/18 at 1600): I spoke with Dr. Au who thought spells could be secondary to mixed motor/non-motor off-time events. He recommended treatment with an oral dissintegrating tablet of Sinemet 25/100mg via PEG for future spells. He was against Benadryl given anticholinergic affects which may accumulate over time. He was also in agreement to slow increase back to previous Rytary regimen. Will plan to increase to QID in 2-3 weeks at follow- up as scheduled. Addendum #3 (04/05/18 at 1630): After repeat exam and discussion with Jaylyn and primary team, recommend increasing Rytary to QID starting tomorrow. She should follow-up as scheduled in the neurology clinic. History of Present Illness Chief Complaint: Altered Mental Status Narrative: Handedness: right. HPI: Ms. 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 She has had a slow decline over the years , but has had a much more significant decline this summer/fall secondary to a major event of illness in December. At that time, she developed a significant fever along with altered mental status, tremor and spasticity. She was acutely septic with DIC, JOSEPH, rhabdomyolysis, ?seizure activity, and demand NSTEMI for which she was transferred to [facility]. No source for the sepsis was found. Differential diagnosis included serotonin syndrome (no recent med changes) as well as neuroleptic malignant syndrome (though no documentation of missed medications). She underwent a PEG placement on 02/11/2018 for ongoing dysphagia and failure to thrive, along with modified PO intake per ST. This was complicated by a preprocedure acute respiratory distress with transient cardiac arrest secondary to inadvertent intubation of the right mainstem bronchus. She had a brief admission in February for acute respiratory distress secondary to a witnessed episode of aspiration. She has been NPO since. She had an EKG in mid February that was concerning for A. fib but not clear due to significant artifact. She had another admission 03/08/18-03/14/18 for sepsis with fever, rigors, and AMS that was thought to be secondary to aspiration. Her tube feeds were changed to bolus. She had 2 ER visits last week for altered mental status and fever with the first and dehydration with the second. She now presents again with similar issues of altered mental status/unresponsiveness with questionable hypoxia at her [place] [facility]. In the ER, she was initially found to be nonverbal. She had significant tremors and was diaphoretic but without fever. She was given IV Benadryl and seemed to respond after that along with a reduction in her tremors. Laboratory workup was unremarkable except for an elevated d-dimer. A chest x-ray was unremarkable. A CTA of the chest was attempted but unfortunately her IV infiltrated. I recently saw her on 04/02/2018 at which time I recommended increasing her Rytary from 145 mg 3 times daily to 195 mg 3 times daily for ongoing rigidity. Prior to her hospitalization in December, she had never had periods of altered mental status. She did have periods of diaphoresis and increased tremors periodically which was felt to be secondary to autonomic dysfunction from her Parkinson's disease. She was on Zyprexa after her hospitalization in December for agitation. That was apparently stopped April 02. She had a brain MRI on January 07, 2018 while at [facility]. I reviewed the images again today. She has patchy pontine T2 hyperintensities as well as moderate generalized cerebral atrophy with ventricular enlargement. This is overall stable compared to previous MRI from 2012. 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) Ambulatory dysfunction (Chronic) Recurrent aspiration events (Chronic) Failure to thrive (Chronic) Seizure (Resolved) NMS (neuroleptic malignant syndrome) (Resolved) Abnormal EKG (Resolved) Hyperlipidemia type III (Chronic) Anemia (Chronic) History of DIC syndrome (Resolved) Toxic metabolic encephalopathy (Resolved) UTI (urinary tract infection) (Resolved) Dysphagia (Chronic) Encephalopathy acute (Resolved) Fall (Chronic) Acute respiratory failure with hypoxia (Resolved) Pneumonia (Resolved) Anemia (Chronic) Acute kidney injury (Resolved) Parkinsons disease (Chronic) Secondary rhabdomyolysis (Resolved) Non-ST elevation ND (NSTEMI) (Resolved) Essential hypertension (Chronic) Hyperlipidemia (Chronic) Obesity (Chronic) Osteoarthritis (Chronic) Parkinson's disease (Chronic) PEG (percutaneous endoscopic gastrostomy) adjustment/replacement/removal ( Resolved) Social History lives independently: No number of children: 2 number of grandchildren: 1 Smoking/Tobacco Use Status: Never alcohol intake: never substance use type: does not use Surgical History History of vaginal hysterectomy (Resolved) Visit Medication and Allergies Active Medications Generic Name Dose Route Start Last Admin Trade Name Freq PRN Reason Stop Dose Admin Acetaminophen 650 mg 04/05/18 07:24 Tylenol NH Q4H PRN PRN Acetaminophen 650 mg 04/05/18 07:42 Tylenol NG Q4H PRN PRN Albuterol Sulfate 2.5 mg 04/05/18 07:24 Proventil Updraft UPD Q2H PRN PRN Amantadine HCl 200 mg 04/05/18 08:30 04/05/18 09:33 Symmetrel NG 200 mg BID TAE Administration Baclofen 10 mg 04/05/18 08:00 Baclofen NG HS prn TAE Calcium Carbonate 500 mg 04/05/18 08:15 Tums NG Q6H PRN PRN Dimethicone/Zinc Oxide 0 gm 04/05/18 07:24 Charla Protect Cream TP PRN PRN Diphenhydramine HCl Confirm 04/05/18 06:41 04/05/18 07:14 Benadryl Injection Administered 50 mg Dose Administration 50 mg .ROUTE .DM PRN Diphenhydramine HCl 50 mg 04/05/18 12:00 Benadryl Injection IVP 04/06/18 00:01 Q6H TAE Docusate Sodium 100 mg 04/05/18 07:42 Colace PO BID PRN Enoxaparin Sodium 40 mg 04/05/18 08:00 Lovenox SC Q24H TAE Fluoxetine HCl 20 mg 04/05/18 08:30 Prozac NG DAILY [facility] Ringer's Solution 1,000 mls @ 100 mls/hr 04/05/18 07:30 IV INFUSION [facility] Melatonin 3 mg 04/05/18 08:38 PO HS PRN PRN Mupirocin 0 gm 04/05/18 08:30 04/05/18 09:37 Bactroban 2% Ointment TP 04/12/18 08:29 1 applic TID TAE Administration Naproxen Sodium 440 mg 04/05/18 08:30 04/05/18 09:33 Aleve NG 440 mg BID TAE Administration Non-Formulary Medication 1 cap 04/05/18 08:30 Carbidopa-Levodopa [Rytary] GT TID TAE Non-Formulary Medication 1 dose pk 04/05/18 08:30 Lactose-Reduced Food With Fibr [Jevity 1.2 Kamlesh] FEEDING TU QID [facility] Omeprazole 20 mg 04/05/18 08:30 Prilosec NG DAILY [facility] Polyethylene Glycol 17 gm 04/05/18 07:42 Miralax NG DAILY PRN Propranolol HCl 40 mg 04/05/18 08:30 04/05/18 09:33 Inderal NG 40 mg DAILY TAE Administration Ropinirole HCl 0.25 mg 04/05/18 14:00 Requip NG TID [facility] Allergies environmental Allergy (Uncoded 04/05/18 05:19) Exam Narrative Exam Narrative: Physical Exam: Rytary not given this am Constitutional: Patient of apparent stated age, well nourished, well developed, no acute distress, moderate hypomima Head and face: no facial or cranial abnormalities Neck: Supple, no meningismus, no occipital tenderness CV: + S1, S2, RRR, no murmur Resp: CTA B/L Abd: soft, nontender, nondistended Ext: No edema. No clubbing or cyanosis. No bony deformity. Neuro: MS/Language/Speech: sleepy, easily arousable; oriented to self and place, able to follow all commands, mod dysarthria with mod hypophonia Motor: Normal bulk. Mild bilateral UE dyskinesias/[id number] tremors. Significant cogwheel rigidity in the UE and mod-severe rigidity in the LE. Moderate bradykinesia throughout, R=L, LE>UE. Formal strength testing difficult to perform as she is so rigid at present. Sensation: Intact to light touch throughout Coordination: unable to test due to rigidity Gait: non-ambulatory Results Last Vital Signs Temp 36.7 C 04/05/18 08:08 Pulse 63 04/05/18 08:08 Resp 24 04/05/18 08:08 BP 136/71 04/05/18 08:08 Pulse Ox 95 04/05/18 08:08 Labs : 04/06/18 07:00 04/06/18 07:00 Laboratory Results - last 24 hr 04/05/18 04/05/18 04/05/18 04:25 04:43 04:43 WBC 8.34 RBC 3.84 L Hgb 11.8 L Hct 37.1 MCV 96.6 H MCH 30.7 MCHC 31.8 L RDW 14.5 Plt Count 281 MPV 10.2 Immature Gran % 0.2 Neutrophils % 58.2 Lymphocytes % 25.1 Monocytes % 14.0 Eosinophils % 1.9 Basophils % 0.6 Absolute Neutrophils 4.85 Absolute Lymphocytes 2.09 Absolute Monocytes 1.17 H Absolute Eosinophils 0.16 Absolute Basophils 0.05 D-Dimer VBG pH VBG pCO2 VBG pO2 VBG HCO3 VBG Total CO2 VBG O2 Saturation VBG Base Excess Sodium 141 Potassium 4.8 Chloride 101 Carbon Dioxide 34.7 H Anion Gap 5.3 BUN 34 H Creatinine 0.68 Estimated GFR/1.73 m2 >= 60.00 Glucose 123 H Lactate Calcium 9.8 Total Bilirubin 0.4 AST 18 ALT 15 Alkaline Phosphatase 107 Troponin I NT-Pro-B Natriuret Pep Total Protein 8.1 Albumin 3.8 Urine Color Yellow Urine Clarity Clear Urine pH 7.0 Ur Specific [place] 1.025 Urine Protein Negative Urine Ketones Negative Urine Blood Negative Urine Nitrite Negative Urine Bilirubin Negative Urine Urobilinogen 1.0 H Ur Leukocyte Esterase Negative Urine Glucose Negative 04/05/18 04/05/18 04/05/18 04:43 04:43 04:43 WBC RBC Hgb Hct MCV MCH MCHC RDW Plt Count MPV Immature Gran % Neutrophils % Lymphocytes % Monocytes % Eosinophils % Basophils % Absolute Neutrophils Absolute Lymphocytes Absolute Monocytes Absolute Eosinophils Absolute Basophils D-Dimer VBG pH 7.34 VBG pCO2 64 H VBG pO2 42 VBG HCO3 35 H VBG Total CO2 33 H VBG O2 Saturation 74 VBG Base Excess 9.2 H Sodium Potassium Chloride Carbon Dioxide Anion Gap BUN Creatinine Estimated GFR/1.73 m2 Glucose Lactate 1.3 Calcium Total Bilirubin AST ALT Alkaline Phosphatase Troponin I < 0.02 NT-Pro-B Natriuret Pep 1576 H Total Protein Albumin Urine Color Urine Clarity Urine pH Ur Specific [place] Urine Protein Urine Ketones Urine Blood Urine Nitrite Urine Bilirubin Urine Urobilinogen Ur Leukocyte Esterase Urine Glucose 04/05/18 04:43 WBC RBC Hgb Hct MCV MCH MCHC RDW Plt Count MPV Immature Gran % Neutrophils % Lymphocytes % Monocytes % Eosinophils % Basophils % Absolute Neutrophils Absolute Lymphocytes Absolute Monocytes Absolute Eosinophils Absolute Basophils D-Dimer 1246 H VBG pH VBG pCO2 VBG pO2 VBG HCO3 VBG Total CO2 VBG O2 Saturation VBG Base Excess Sodium Potassium Chloride Carbon Dioxide Anion Gap BUN Creatinine Estimated GFR/1.73 m2 Glucose Lactate Calcium Total Bilirubin AST ALT Alkaline Phosphatase Troponin I NT-Pro-B Natriuret Pep Total Protein Albumin Urine Color Urine Clarity Urine pH Ur Specific [place] Urine Protein Urine Ketones Urine Blood Urine Nitrite Urine Bilirubin Urine Urobilinogen Ur Leukocyte Esterase Urine Glucose Vital Signs 3 l l l l 04/05/18 04:08 l l 04/05/18 04:28 l l 04/05/18 05:02 l l 04/05/18 05:10 l l 04/05/18 05:15 l l 04/05/18 05:20 l l 04/05/18 05:30 l l 04/05/18 05:40 l l 04/05/18 05:41 l l 04/05/18 06:30 l l 04/05/18 06:31 l l 04/05/18 06:40 l l 04/05/18 06:46 l l 04/05/18 06:50 l l 04/05/18 07:00 l l 04/05/18 07:02 l l 04/05/18 07:10 l l 04/05/18 07:16 l l 04/05/18 07:20 l l 04/05/18 07:30 l l 04/05/18 07:31 l l 04/05/18 07:55 l l 04/05/18 08:03 l l 04/05/18 08:08 l l 04/05/18 08:45 l l 04/05/18 11:12 l l 04/05/18 13:10 l l 04/05/18 13:17 l l 04/05/18 13:23 l l 04/05/18 14:03 l l 04/05/18 15:00 l l 04/05/18 15:58 l l 04/05/18 18:52 l l 04/06/18 06:07 l l 04/06/18 07:10 l l 04/06/18 07:30 l l 04/06/18 11:12 l l Weight 53.8 kg 53.8 kg 53.8 kg 48 kg l l BP 143/80 H 152/79 H 109/92 H 153/66 H 132/65 138/90 137/80 137/80 136/71 124/75 123/81 119/76 105/58 L 119/68 131/93 H l l Blood Pressure Location Lt radial l l Respiration 15 44 H 30 H 25 H 23 21 23 10 L 32 H 25 H 29 H 27 H 26 H 17 19 19 24 20 20 24 22 20 19 20 18 16 l l Pulse 62 49 L 60 119 H 93 H 87 90 90 63 98 H 68 99 H 97 H 97 H 95 H 87 83 l l Temp 36.7 C 36.7 C 36.7 C 37.3 C 37.2 C 37.0 C 37.1 C 37.3 C 37.1 C l l Temp Source Skin Tympanic Tympanic Tympanic Tympanic Tympanic Tympanic l l Pulse Oximetry (%) 100 96 99 100 100 100 100 100 99 99 100 100 99 98 98 97 98 98 95 91 L 98 99 90 L 99 98 99 99 98 99 l l Oxygen Flow Rate 4 4 5 4 4 4 2 2 1 1 0 0 2 2 0 Ambulatory Orders Medication Instructions Recorded baclofen 10 mg FEEDING TUBE HS prn #30 07/25/16 tab-cap amantadine HCl 200 mg FEEDING TUBE BID 08/15/16 acetaminophen [Tylenol] 650 mg FEEDING TUBE Q4H PRN PRN 11/15/16 tab-cap fluoxetine 20 mg FEEDING TUBE DAILY tab-cap 11/15/16 polyethylene glycol 3350 17 gm FEEDING TUBE DAILY PRN 08/15/17 propranolol 40 mg FEEDING TUBE DAILY 12/25/17 calcium carbonate 1 tab FEEDING TUBE .Q6H, PRN PRN 01/04/18 docusate sodium 100 mg BID PRN 01/04/18 melatonin 3 mg FEEDING TUBE HS PRN 01/04/18 ropinirole [Requip] 0.25 mg FEEDING TUBE TID 03/07/18 acetaminophen 650 mg NH Q4H PRN PRN 03/08/18 lactose-reduced food with fibr 1 FEEDING TUBE QID 03/08/18 [Jevity 1.2 Kamlesh] naproxen sodium 440 mg FEEDING TUBE BID 03/08/18 bisacodyl 10 mg rectal suppository 10 mg NH ONCE 04/02/18 ipratropium-albuterol 0.5 mg-3 3 ml IH Q4H ml 04/02/18 mg(2.5 mg base)/3 mL nebulization soln omeprazole 20 mg capsule,delayed 20 mg FEEDING TUBE DAILY 04/02/18 release carbidopa-levodopa [Rytary] 1 cap PO QID #1 cap 04/06/18
--- NOTE | 2018-04-05 11:52 | PDOC.CMIN ---
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 Ambulatory dysfunction (Chronic). Recurrent aspiration events (Chronic). Failure to thrive (Chronic). PEG (percutaneous endoscopic gastrostomy) adjustment/replacement/removal (Chronic). Seizure (Resolved). NMS (neuroleptic malignant syndrome) (Resolved). Abnormal EKG (Resolved). Hyperlipidemia type III (Chronic). Anemia (Chronic). History of DIC syndrome (Resolved). Toxic metabolic encephalopathy (Resolved). UTI (urinary tract infection) (Resolved). Dysphagia (Chronic). Encephalopathy acute (Resolved). Fall (Chronic). Acute respiratory failure with hypoxia (Resolved). Pneumonia (Resolved). Anemia (Chronic). Acute kidney injury (Resolved). Parkinsons disease (Chronic). Secondary rhabdomyolysis (Resolved). Non-ST elevation [place] (NSTEMI) (Resolved). Essential hypertension (Chronic). Hyperlipidemia (Chronic). Obesity (Chronic). Osteoarthritis (Chronic). Parkinson's disease (Chronic). History of vaginal hysterectomy (Resolved) PREVIOUS FUNCTIONAL STATUS/SOCIAL/FAMILY SUPPORTS:: Jaylyn is a resident at [facility]. She is alert and oriented at baseline; not at this time. She has end stage Parkinson's, has been w/c bound and staff utilizes a breanne lift at [facility] for her transfers. CURRENT FUNCTIONAL STATUS:: Jaylyn is lying in bed chin elevated-sleeping when CM enters the room-CM will continue to attempt contact. ADVANCE DIRECTIVES:: [facility] on file Has patient been provided with information about the portal?: No Did the patient sign up for the portal?: No CODE STATUS:: Full Code INSURANCE COVERAGE / FINANCIAL ISSUES:: Medicare, Medicaid CURRENT HOME/COMMUNITY SERVICES/EQUIPMENT:: Currently Jaylyn receives all services and equipment needs through [facility] PRIMARY CARE PHYSICIAN:: Barbara Almaguer POTENTIAL DISCHARGE NEEDS:: Coordinated return to [facility]. ANTICIPATED BARRIERS TO DISCHARGE:: None identified at this time. TRANSPORTATION:: W/C van or EMS dependent on clinical status upon discharge. PLAN:: Jaylyn will return to [facility] when ready per MD. CM requested MD to MD discussion central to Jaylyn's ongoing care needs [id number] considering at this time. CM will continue to follow and support discharge planning considerations. Readmission - Within the Past 30 Days Yes or No: Y - Date of First Admission Date of 1st Admission: 03/08/18 (10 ER since July) - Date of this Admission Date of Admission: 04/05/18 This admission was: Through ED - ED visits How many ED visits in the past 12 months: 10 - Assessment for Readmission Summary of readmission circumstances, based upon interviews: Patient is unable to participate in interview. Undetermined if ongoing re-admissions are due to worsening Parkingson's-MD reports Jaylyn is not hypoxic and respiratory rate is not elevated on Admission as reported by [facility] and shares concerns that her worsening tremors are skewing vital results. CM requested MD to MD conversation prior to discharge; MD considering at this time. Patient has been seen in the [facility] ER six times since 02/22/18. She remains a full code at this time. Please refer to additional information from HPI by Dr. Mckoy: HPI: Ms. 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 She has had a slow decline over the years, but has had a much more significant decline this summer/fall secondary to a major event of illness in December. At that time, she developed a significant fever along with altered mental status, tremor and spasticity. She was acutely septic with DIC, JOSEPH, rhabdomyolysis, ?seizure activity, and demand NSTEMI for which she was transferred to [facility]. No source for the sepsis was found. Differential diagnosis included serotonin syndrome (no recent med changes) as well as neuroleptic malignant syndrome (though no documentation of missed medications). She underwent a PEG placement on 02/11/2018 for ongoing dysphagia and failure to thrive, along with modified PO intake per ST. This was complicated by a preprocedure acute respiratory distress with transient cardiac arrest secondary to inadvertent intubation of the right mainstem bronchus. She had a brief admission in February for acute respiratory distress secondary to a witnessed episode of aspiration. She has been NPO since. She had an EKG in mid February that was concerning for A. fib but not clear due to significant artifact. She had another admission 03/08/18-03/14/18 for sepsis with fever, rigors, and AMS that was thought to be secondary to aspiration. Her tube feeds were changed to bolus. She had 2 ER visits last week for altered mental status and fever with the first and dehydration with the second. She now presents again with similar issues of altered mental status/unresponsiveness with questionable hypoxia at her skilled nursing. In the ER, she was initially found to be nonverbal. She had significant tremors and was diaphoretic but without fever. She was given IV Benadryl and seemed to respond after that along with a reduction in her tremors. Laboratory workup was unremarkable except for an elevated d-dimer. A chest x-ray was unremarkable. A CTA of the chest was attempted but unfortunately her IV infiltrated. I recently saw her on 04/02/2018 at which time I recommended increasing her Rytary from 145 mg 3 times daily to 195 mg 3 times daily for ongoing rigidity. Prior to her hospitalization in December, she had never had periods of altered mental status. She did have periods of diaphoresis and increased tremors periodically which was felt to be secondary to autonomic dysfunction from her Parkinson's disease. She was on Zyprexa after her hospitalization in December for agitation. That was apparently stopped April 02.
[2018-04-05] MEDS: LORazepam 2 MG/ML VIAL 1 MG IVP (12:00)
--- NOTE | 2018-04-05 12:18 | PDOC.EEG ---
EEG: [facility] Department of Neurology INPATIENT EEG REPORT Date of Recordin04/05/18 Interpreting Physician: Dr. Vidya Mckoy Reason for study: Ms. So is a 52 year-old woman with Parkinsons disease who has had episodic spells of altered mental status with a questionable GTC in December while acutely septic. Current Medications: Active Medications Generic Name Dose Route Start Last Admin Trade Name Freq PRN Reason Stop Dose Admin Acetaminophen 650 mg 04/05/18 07:24 Tylenol TN Q4H PRN PRN Acetaminophen 650 mg 04/05/18 07:42 Tylenol NG Q4H PRN PRN Albuterol Sulfate 2.5 mg 04/05/18 07:24 Proventil Updraft UPD Q2H PRN PRN Amantadine HCl 200 mg 04/05/18 08:30 04/05/18 09:33 Symmetrel NG 200 mg BID TAE Administration Baclofen 10 mg 04/05/18 10:11 Baclofen NG HS prn PRN Calcium Carbonate 500 mg 04/05/18 08:15 Tums NG Q6H PRN PRN Dimethicone/Zinc Oxide 0 gm 04/05/18 07:24 Charla Protect Cream TP PRN PRN Diphenhydramine HCl Confirm 04/05/18 06:41 04/05/18 07:14 Benadryl Injection Administered 50 mg Dose Administration 50 mg .ROUTE .DM PRN Diphenhydramine HCl 50 mg 04/05/18 12:00 Benadryl Injection IVP 04/06/18 00:01 Q6H TAE Docusate Sodium 100 mg 04/05/18 07:42 Colace PO BID PRN Enoxaparin Sodium 50 mg 04/05/18 22:00 Lovenox SC Q12H TAE Fluoxetine HCl 20 mg 04/05/18 08:30 04/05/18 09:48 Prozac NG 20 mg DAILY TAE Administration Ringer's Solution 1,000 mls @ 100 mls/hr 04/05/18 07:30 IV INFUSION TAE Iohexol 100 ml 04/05/18 12:07 Omnipaque 350 IJ 04/05/18 12:08 DIRECTED ONE Melatonin 3 mg 04/05/18 08:38 PO HS PRN PRN Mupirocin 0 gm 04/05/18 08:30 04/05/18 09:37 Bactroban 2% Ointment TP 04/12/18 08:29 1 applic TID TAE Administration Naproxen Sodium 440 mg 04/05/18 08:30 04/05/18 09:33 Aleve NG 440 mg BID TAE Administration Omeprazole 20 mg 04/05/18 08:30 04/05/18 09:48 Prilosec NG 20 mg DAILY TAE Administration Patient's Own ( 0 each 04/05/18 14:00 Carbidopa-Levodopa [ GT Rytary] 1 Cap) TID TAE Polyethylene Glycol 17 gm 04/05/18 07:42 Miralax NG DAILY PRN Propranolol HCl 40 mg 04/05/18 08:30 04/05/18 09:33 Inderal NG 40 mg DAILY TAE Administration Ropinirole HCl 0.25 mg 04/05/18 14:00 Requip NG TID TAE baclofen 10 mg FEEDING TUBE HS prn #30 tab-cap 07/25/16 amantadine HCl 200 mg FEEDING TUBE BID 08/15/16 acetaminophen [Tylenol] 650 mg FEEDING TUBE Q4H PRN PRN tab-cap 11/15/16 fluoxetine 20 mg FEEDING TUBE DAILY tab-cap 11/15/16 polyethylene glycol 3350 17 gm FEEDING TUBE DAILY PRN 08/15/17 propranolol 40 mg FEEDING TUBE DAILY 12/25/17 calcium carbonate 1 tab FEEDING TUBE .Q6H, PRN PRN 01/04/18 docusate sodium 100 mg BID PRN 01/04/18 melatonin 3 mg FEEDING TUBE HS PRN 01/04/18 ropinirole [Requip] 0.25 mg FEEDING TUBE TID 03/07/18 acetaminophen 650 mg TN Q4H PRN PRN 03/08/18 lactose-reduced food with fibr [Jevity 1.2 Kamlesh] 1 FEEDING TUBE QID 03/08/18 naproxen sodium 440 mg FEEDING TUBE BID 03/08/18 bisacodyl 10 mg rectal suppository 10 mg TN ONCE 04/02/18 ipratropium-albuterol 0.5 mg-3 mg(2.5 mg base)/3 mL nebulization soln 3 ml IH Q4H ml 04/02/18 levofloxacin 750 mg tablet 750 mg FEEDING TUBE HS tab 04/02/18 omeprazole 20 mg capsule,delayed release 20 mg FEEDING TUBE DAILY 11/12/18 carbidopa-levodopa [Rytary] 1 cap TID 04/05/18 METHODS: A 21 channel digitized electroencephalogram was performed in the [facility] Med/Surg Floor or ICU. The 10/20 international system of electrode placement was used and bipolar and referential electrode montages were recorded. In addition to EEG the patient was monitored for EKG and lateral/vertical eye movements. Activation procedures of photic stimulation and hyperventilation were performed if applicable. Video was used during activation procedures and during events where applicable. The duration of the recording was 30 minutes. DESCRIPTION OF EEG: The patient was noted to be awake only during the recording. During maximal wakefulness a 10-Hz posterior background rhythm was present which was well-modulated, symmetrical, reactive to eye opening, and of moderate voltage. With eye opening the background activity changed to a low voltage mixture of alpha, beta, and occasional theta range frequencies. Faster frequencies were present in the bilateral anterior head regions. There was a normal anterior-posterior voltage gradient. No drowsiness or stage II sleep was recorded. There was frequent motion and muscle artifact throughout the recording, but overall it was a good study. Activating Procedures: Photic stimulation was performed which produced a symmetrical posterior driving response at various flash frequencies. Hyperventilation was not performed. EKG: EKG revealed normal sinus rhythm. INTERPRETATION: This EEG is normal during the awake state as well as during photic stimulation. PRIOR EEG: none CLINICAL CORRELATION: No focal regions of cerebral dysfunction or epileptiform activity was present. No sleep was recorded during the study which reduces the sensitivity of the exam. Epilepsy remains a clinical diagnosis and a normal EEG does not rule out epilepsy. Clinical correlation is advised. Vidya Mckoy MD
--- NOTE | 2018-04-05 12:32 | INITIAL_ITS ---
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 Ambulatory dysfunction (Chronic). Recurrent aspiration events (Chronic). Failure to thrive (Chronic). PEG (percutaneous endoscopic gastrostomy) adjustment/replacement/removal (Chronic). Seizure (Resolved). NMS ( neuroleptic malignant syndrome) (Resolved). Abnormal EKG (Resolved). Hyperlipidemia type III (Chronic). Anemia (Chronic). History of DIC syndrome ( Resolved). Toxic metabolic encephalopathy (Resolved). UTI (urinary tract infection) (Resolved). Dysphagia (Chronic). Encephalopathy acute (Resolved). Fall (Chronic). Acute respiratory failure with hypoxia (Resolved). Pneumonia ( Resolved). Anemia (Chronic). Acute kidney injury (Resolved). Parkinsons disease (Chronic). Secondary rhabdomyolysis (Resolved). Non-ST elevation GA ( NSTEMI) (Resolved). Essential hypertension (Chronic). Hyperlipidemia (Chronic) . Obesity (Chronic). Osteoarthritis (Chronic). Parkinson's disease (Chronic) . History of vaginal hysterectomy (Resolved) PREVIOUS FUNCTIONAL STATUS/SOCIAL/FAMILY SUPPORTS:: Jaylyn is a resident at [facility]. She is alert and oriented at baseline; not at this time. She has end stage Parkinson's, has been w/c bound and staff utilizes a breanne lift at [facility] for her transfers. CURRENT FUNCTIONAL STATUS:: Jaylyn is lying in bed chin elevated-sleeping when CM enters the room-CM will continue to attempt contact. ADVANCE DIRECTIVES:: [facility] on file Has patient been provided with information about the portal?: No Did the patient sign up for the portal?: No CODE STATUS:: Full Code INSURANCE COVERAGE / FINANCIAL ISSUES:: Medicare, Medicaid CURRENT HOME/COMMUNITY SERVICES/EQUIPMENT:: Currently Jaylyn receives all services and equipment needs through [facility] PRIMARY CARE PHYSICIAN:: Barbara Almaguer POTENTIAL DISCHARGE NEEDS:: Coordinated return to [facility]. ANTICIPATED BARRIERS TO DISCHARGE:: None identified at this time. TRANSPORTATION:: W/C van or EMS dependent on clinical status upon discharge. PLAN:: Jaylyn will return to [facility] when ready per MD. CM requested MD to MD discussion central to Jaylyn's ongoing care needs re- admissions-MD considering at this time. CM will continue to follow and support discharge planning considerations. Readmission - Within the Past 30 Days Yes or No: Y - Date of First Admission Date of 1st Admission: 03/08/18 (10 ER since July) - Date of this Admission Date of Admission: 04/05/18 This admission was: Through ED - ED visits How many ED visits in the past 12 months: 10 - Assessment for Readmission Summary of readmission circumstances, based upon interviews: Patient is unable to participate in interview. Undetermined if ongoing re-admissions are due to worsening Parkingson's-MD reports Jaylyn is not hypoxic and respiratory rate is not elevated on Admission as reported by [facility] and shares concerns that her worsening tremors are skewing vital results. CM requested MD to MD conversation prior to discharge; MD considering at this time. Patient has been seen in the [facility] ER six times since 02/22/18. She remains a full code at this time. Please refer to additional information from HPI by Dr. Mckoy: HPI: Ms. 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 She has had a slow decline over the years , but has had a much more significant decline this summer/fall secondary to a major event of illness in December. At that time, she developed a significant fever along with altered mental status, tremor and spasticity. She was acutely septic with DIC, JOSEPH, rhabdomyolysis, ?seizure activity, and demand NSTEMI for which she was transferred to [facility]. No source for the sepsis was found. Differential diagnosis included serotonin syndrome (no recent med changes) as well as neuroleptic malignant syndrome (though no documentation of missed medications). She underwent a PEG placement on 02/11/2018 for ongoing dysphagia and failure to thrive, along with modified PO intake per ST. This was complicated by a preprocedure acute respiratory distress with transient cardiac arrest secondary to inadvertent intubation of the right mainstem bronchus. She had a brief admission in February for acute respiratory distress secondary to a witnessed episode of aspiration. She has been NPO since. She had an EKG in mid February that was concerning for A. fib but not clear due to significant artifact. She had another admission 03/08/18-03/14/18 for sepsis with fever, rigors, and AMS that was thought to be secondary to aspiration. Her tube feeds were changed to bolus. She had 2 ER visits last week for altered mental status and fever with the first and dehydration with the second. She now presents again with similar issues of altered mental status/unresponsiveness with questionable hypoxia at her fdc. In the ER, she was initially found to be nonverbal. She had significant tremors and was diaphoretic but without fever. She was given IV Benadryl and seemed to respond after that along with a reduction in her tremors. Laboratory workup was unremarkable except for an elevated d-dimer. A chest x-ray was unremarkable. A CTA of the chest was attempted but unfortunately her IV infiltrated. I recently saw her on 04/02/2018 at which time I recommended increasing her Rytary from 145 mg 3 times daily to 195 mg 3 times daily for ongoing rigidity. Prior to her hospitalization in December, she had never had periods of altered mental status. She did have periods of diaphoresis and increased tremors periodically which was felt to be secondary to autonomic dysfunction from her Parkinson's disease. She was on Zyprexa after her hospitalization in December for agitation. That was apparently stopped April 02.
[2018-04-05] MEDS: diphenhydrAMINE 50 MG/ML VIAL IVP ×2 (12:46→18:02)
--- NOTE | 2018-04-05 14:00 | W.PM.PROGNOT ---
Date of Service Date of service: 04/05/18 Time of Service: 14:01 Objective Objective Clinical Data: Abnormal lab results 04/05/18 04/05/18 04/05/18 Range/Units 04:25 04:43 04:43 RBC 3.84 L (4.00-5.20) m/cumm Hgb 11.8 L (12.0-15.5) g/dL MCV 96.6 H (80-95) fL MCHC 31.8 L (32.0-36.0) g/dL Absolute Monocytes 1.17 H (0.11-0.7) k/cumm D-Dimer (<500) ng/mlFEU VBG pCO2 (34-47) mm/Hg VBG HCO3 (22-28) mmol/L VBG Total CO2 (22-29) mmol/L VBG Base Excess (-3-3) mmol/L Carbon Dioxide 34.7 H (21.0-32.0) mmol/L BUN 34 H (7-18) mg/dL Glucose 123 H (70-100) mg/dL NT-Pro-B Natriuret Pep ( - 299) pg/mL Urine Urobilinogen 1.0 H (Up TO 0.2) EU/dL 04/05/18 04/05/18 04/05/18 Range/Units 04:43 04:43 04:43 RBC (4.00-5.20) m/cumm Hgb (12.0-15.5) g/dL MCV (80-95) fL MCHC (32.0-36.0) g/dL Absolute Monocytes (0.11-0.7) k/cumm D-Dimer 1246 H (<500) ng/mlFEU VBG pCO2 64 H (34-47) mm/Hg VBG HCO3 35 H (22-28) mmol/L VBG Total CO2 33 H (22-29) mmol/L VBG Base Excess 9.2 H (-3-3) mmol/L Carbon Dioxide (21.0-32.0) mmol/L BUN (7-18) mg/dL Glucose (70-100) mg/dL NT-Pro-B Natriuret Pep 1576 H ( - 299) pg/mL Urine Urobilinogen (Up TO 0.2) EU/dL Vital Signs Temperature 36.7 C 04/05/18 08:08 Temperature Source Skin 04/05/18 04:08 Pulse 98 H 04/05/18 08:45 Pulse Rhythm Regular 04/05/18 08:08 Pulse 95 H 04/05/18 07:31 Respiratory Rate 24 04/05/18 08:08 Respiratory Effort Labored 04/05/18 05:02 Respiratory Depth Shallow 04/05/18 08:08 Respiratory Pattern Tachypnea 04/05/18 08:08 Blood Pressure 136/71 04/05/18 08:08 Blood Pressure Mean 89 04/05/18 07:31 Pulse Oximetry 90 L 04/05/18 13:23 Oxygen Delivery Method Nasal Cannula 04/05/18 13:23 Oxygen Flow Rate 1 04/05/18 13:23 Pain Level 4 04/05/18 08:08 Intake & Output 04/04/18 04/05/18 04/05/18 23:59 11:59 23:59 Weight 53.8 kg Other: Comment Incontinent of bowel & bladder- barrier wipes used Voiding Methods Diaper Diaper Incontinent Incontinent Laboratory Results WBC 8.34 k/cumm (4.4-10.8) 04/05/18 04:43 RBC 3.84 m/cumm (4.00-5.20) L 04/05/18 04:43 Hgb 11.8 g/dL (12.0-15.5) L 04/05/18 04:43 Hct 37.1 % (36.0-46.0) 04/05/18 04:43 MCV 96.6 fL (80-95) H 04/05/18 04:43 MCH 30.7 pg (27.0-33.0) 04/05/18 04:43 MCHC 31.8 g/dL (32.0-36.0) L 04/05/18 04:43 RDW 14.5 % (11.7-14.6) 04/05/18 04:43 Plt Count 281 x1000/uL (130-400) 04/05/18 04:43 MPV 10.2 fL (8.0-11.0) 04/05/18 04:43 Immature Gran % 0.2 04/05/18 04:43 Neutrophils % 58.2 04/05/18 04:43 Lymphocytes % 25.1 04/05/18 04:43 Monocytes % 14.0 04/05/18 04:43 Eosinophils % 1.9 04/05/18 04:43 Basophils % 0.6 04/05/18 04:43 Absolute Neutrophils 4.85 k/cumm (1.2-6.7) 04/05/18 04:43 Absolute Lymphocytes 2.09 k/cumm (1.2-3.4) 04/05/18 04:43 Absolute Monocytes 1.17 k/cumm (0.11-0.7) H 04/05/18 04:43 Absolute Eosinophils 0.16 k/cumm (0.0-0.7) 04/05/18 04:43 Absolute Basophils 0.05 k/cumm (0.0-0.2) 04/05/18 04:43 D-Dimer 1246 ng/mlFEU (<500) H 04/05/18 04:43 VBG pH 7.34 (7.32-7.43) 04/05/18 04:43 VBG pCO2 64 mm/Hg (34-47) H 04/05/18 04:43 VBG pO2 42 mm/Hg (28-44) 04/05/18 04:43 VBG HCO3 35 mmol/L (22-28) H 04/05/18 04:43 VBG Total CO2 33 mmol/L (22-29) H 04/05/18 04:43 VBG O2 Saturation 74 % (70-80) 04/05/18 04:43 VBG Base Excess 9.2 mmol/L (-3-3) H 04/05/18 04:43 Sodium 141 mmol/L (136-145) 04/05/18 04:43 Potassium 4.8 mmol/L (3.5-5.1) 04/05/18 04:43 Chloride 101 mmol/L (98-107) 04/05/18 04:43 Carbon Dioxide 34.7 mmol/L (21.0-32.0) H 04/05/18 04:43 Anion Gap 5.3 mmol/L (3-11) 04/05/18 04:43 BUN 34 mg/dL (7-18) H 04/05/18 04:43 Creatinine 0.68 mg/dL (0.55-1.02) 04/05/18 04:43 Estimated GFR/1.73 m2 >= 60.00 (mL/min/1.73m2) 04/05/18 04:43 Glucose 123 mg/dL (70-100) H 04/05/18 04:43 Lactate 1.3 mmol/L (0.6-1.4) 04/05/18 04:43 Calcium 9.8 mg/dL (8.5-10.1) 04/05/18 04:43 Total Bilirubin 0.4 mg/dL (0.2-1.0) 04/05/18 04:43 AST 18 U/L (15-37) 04/05/18 04:43 ALT 15 U/L (12-78) 04/05/18 04:43 Alkaline Phosphatase 107 U/L (46-116) 04/05/18 04:43 Troponin I < 0.02 ng/mL (0.00-0.06) 04/05/18 04:43 NT-Pro-B Natriuret Pep 1576 pg/mL (-299) H 04/05/18 04:43 Total Protein 8.1 g/dL (6.4-8.2) 04/05/18 04:43 Albumin 3.8 g/dL (3.4-5.0) 04/05/18 04:43 Urine Color Yellow (Yellow) 04/05/18 04:25 Urine Clarity Clear 04/05/18 04:25 Urine pH 7.0 (5-8) 04/05/18 04:25 Ur Specific [place] 1.025 (1.005-1.025) 04/05/18 04:25 Urine Protein Negative mg/dL (Negative) 04/05/18 04:25 Urine Ketones Negative mg/dL (Negative) 04/05/18 04:25 Urine Blood Negative (Negative) 04/05/18 04:25 Urine Nitrite Negative (Negative) 04/05/18 04:25 Urine Bilirubin Negative (Negative) 04/05/18 04:25 Urine Urobilinogen 1.0 EU/dL (Up TO 0.2) H 04/05/18 04:25 Ur Leukocyte Esterase Negative (Negative) 04/05/18 04:25 Urine Glucose Negative mg/dL (Negative) 04/05/18 04:25
--- NOTE | 2018-04-05 14:15 | DI.US_ITS ---
SYMPTOMS/DIAGNOSIS: ELEVATED D DIMER DUPLEX VENOUS ULTRASOUND BOTH LOWER EXTREMITIES: Duplex evaluation of the deep venous systems was performed according to the usual protocol. The deep veins are freely compressible throughout to the level of the popliteal veins. There is normal doppler flow visible throughout and there is excellent flow augmentation with manual calf compression. CONCLUSION: No evidence of deep venous thrombosis.
[2018-04-05] MEDS: rOPINIRole 0.25 MG TAB NG ×2 (14:41→20:24)
--- NOTE | 2018-04-05 15:44 | SATEXT_ITS ---
April 05, 2018 1545 h Assessment: Nutrition consult for tube feeding. Ms. So has been tolerating her tube feeding well. We had changed her over to bolus feeds on her last admission as she was having diarrhea. Per nursing report, she is not having diarrhea and feedings are going well. Minimal residuals. She has gained 0.9 kg in one month which is planned and WNL. She is 63.5 and 53.8 kg. Her BMI is 20.7 kg/m2 which is WNL. Her estimated energy needs are 1900 kcal/day (35 kcal/kg). Estimated protein needs are 80 grams/day (1.5g/kg/day. Her estimated fluid needs are 1900 ml/day (1 ml/kcal provided) Nutritional Diagnosis: Inability to take oral foods and fluids related to dysphagia. Intervention: Would recommend that Ms. So continue on the same feeding regimen here in the hospital as she had been at [facility]. Her regimen is as follows: Jevity 1.2 tricia 390 ml bolus @ approximate times of 0800, 1200, 1500, 1800. She will also need 1000 ml of free water to be given throughout the day. She can get free water bolus at 0600, 1000, 1400, and 1700 or with her medication schedule. These are recommendations of a proposed schedule. We may be able to cut back to 750 ml/day on free water if she is well hydrated. This regimen provides 1872 kcals and 86 grams of protein. It also provides 1250 ml of free water. This regimen meets 100% of her estimated micronutrient needs. Monitoring and Evaluation: 1. Will monitor her tolerance to tube feedings and her weight. Please weigh daily. 2. Will evaluate nutrition care plan ongoing and adjust as needed. Thank you for the consult.
--- NOTE | 2018-04-06 00:05 | NUR.NOTE ---
Nursing Note: 7P-7A shift: Patient received fully awake on bed. Had bed bath rendered by [employer] due to sticky hairs from EEG done on day shift. Peg tube flushed and checked for placement. HS meds given without difficulty. Vital signs stable. complained of SOB while on bed. O2 Sat 96% at room air. O2 applied for comfort regulated at 2L per NC. No further voiced complaints, turned and repositioned.Buttocks remains reddened.barrier cream applied. Nursing will continue to monitor.
[2018-04-06] MEDS: Lactated Ringers 1,000 ML 50 ML IV (00:41)
[2018-04-06] MEDS: Normal Saline Flush 10 ML SYR (00:42)
[2018-04-06] MEDS: diphenhydrAMINE 50 MG/ML VIAL IVP (00:42)
[2018-04-06] MEDS: Melatonin 3 MG TAB PO (01:44)
[2018-04-06 06:07] VITALS: BP 105/58; PULSE 95; RESP 20; TEMP 37.1; O2SAT 99
[2018-04-06 07:19] LABS: Abs Immature Grans 0.03 k/cumm (0.0-0.09); Absolute Basophil Count 0.07 k/cumm (0.0-0.2); Absolute Eosinophil Count 0.18 k/cumm (0.0-0.7); Absolute Lymphocyte Count 1.86 k/cumm (1.2-3.4); Absolute Monocyte Count 0.73 k/cumm (0.11-0.7); Basophils % 1.2; Eosinophils % 3.2; HCT 31.3 % (36.0-46.0); Immature Grans % 0.5; Lymphocytes % 32.8; Mean Corp. HGB Concentration 31.9 g/dL (32.0-36.0); Mean Corpuscular Hemoglobin 30.4 pg (27.0-33.0); Mean Corpuscular Volume 95.1 fL (80-95); Mean Platelet Volume 9.9 fL (8.0-11.0); Monocytes % 12.9; Neutrophils % 49.4; Platelet Count 216 x1000/uL (130-400); RBC 3.29 m/cumm (4.00-5.20); RBC Distribution Width 14.9 % (11.7-14.6); White Blood Cell Count 5.67 k/cumm (4.4-10.8)
[2018-04-06 07:30] VITALS: BP 119/68; PULSE 87; RESP 18; TEMP 37.3; O2SAT 98
[2018-04-06 07:32] LABS: Anion Gap 7.4 mmol/L (3-11); BUN 30 mg/dL (7-18); CO2 29.6 mmol/L (21.0-32.0); CREATININE 0.84 mg/dL (0.55-1.02); Calcium 9.6 mg/dL (8.5-10.1); Chloride 102 mmol/L (98-107); Glucose 97 mg/dL (70-100); Sodium 139 mmol/L (136-145)
[2018-04-06] MEDS: rOPINIRole 0.25 MG TAB NG (09:17)
[2018-04-06] MEDS: Enoxaparin 40 MG/0.4 ML SYR SC (09:17)
[2018-04-06] MEDS: FLUoxetine 20 MG CAP NG (09:18)
[2018-04-06] MEDS: Omeprazole 20 MG CAPCR NG (09:18)
[2018-04-06] MEDS: Propranolol 40 MG TAB NG (09:19)
--- NOTE | 2018-04-06 10:04 | PDOC.CMDIS ---
- If Service Date Differs Date of service: 04/06/18 Time of Service: 10:04 LACE Index Scoring Tool - Questions: Length of Stay (in days): 3 Acuity (Admit via E.D.?): Yes Comorbidities: Connective Tissue Disease Care Management Discharge Reason for Hospitalization: AMS change, Autonomic Hyperactivity Discharge Plan: [facility]. CM contacted admission director and he agrees to return to facility today. CM contacted [facility] and coordinated transporation. to faclity. CM confirmed with facility that Jyalyn's purse is there at [facility] and intact. Patient/Family Education Needs: Discharge education, limitations and follow up plan of care which includes return to SNF facility. Services Needed at Discharge: Half-Way Facility, Transportation
--- NOTE | 2018-04-06 10:29 | W.PM.DS.N ---
Date of service: 04/06/18 Time of Service: 10:30 DS: Diagnosis Discharge Diagnosis (1) Parkinsons disease: Status: Chronic Discharge Plan Disposition Patient Disposition: SNF (LEVEL 1) [facility] Condition: Improving Discharge Details Reason For Visit: ACUTE MENTAL STATUS CHANGE, AUTONOMIC HYPERACTIVIT Admit Date/Time: 04/05/18 07:23 Admit Provider: Alex Kong Attending Provider: Alex Kong Primary Care Provider: Barbara Almaguer Hospital Course Hospital Course: Ms. 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 She has had a slow decline over the years, but has had a much more significant decline this summer/fall secondary to a major event of illness. She has had several recent hospitalizations. She had 2 ER visits last week for altered mental status and fever with the first and dehydration with the second. She now presents again with similar issues of altered mental status/unresponsiveness with questionable hypoxia at her residential. In the ER, she was initially found to be nonverbal. She had significant tremors and was diaphoretic but without fever. She was given IV Benadryl and seemed to respond after that along with a reduction in her tremors. Laboratory workup was unremarkable except for an elevated d-dimer. A chest x-ray was unremarkable. A CTA of the chest was negative for PE. She had duplex venous ultrasound of BLEs which did not show evidence of DVT. She remained afebrile, no leukocytosis, blood cultures yielded no growth at 24 hours, lactate was normal, hemoglobin and hematocrit stable. She had normotensive blood pressure, no tacycardia, oxygen saturation within normal limits on room air. Urinalysis was not suspicious for infection. EEG was negative for seizures. She was seen by neurology who recently saw her on 04/02/2018 at which time she recommended increasing her Rytary from 145 mg 3 times daily to 195 mg 3 times daily for ongoing rigidity. Prior to her hospitalization in December, she had never had periods of altered mental status. She did have periods of diaphoresis and increased tremors periodically which was felt to be secondary to autonomic dysfunction from her Parkinson's disease. She was on Zyprexa briefly after her hospitalization in December for agitation which was stopped April 02. Ultimately, Neurology recommended further increasing Rytary to 195 mg QID. Given her negative workup, it is possible that this is worsening of her underlying parkinsons disease. She received IV fluids while she was in the hospital. Consider increasing free water intake to ensure that she does not become dehydrated. Overall, she appears better today, she is no longer diaphoretic, this was likely related to her tremors. She will need to follow up with neurology. Continue Rytary at increased dose. Home Meds and New Rx's Prescriptions: Continue baclofen 10 MG tablet 10 mg Feeding Tube HS prn Qty: 30 RF: 0 acetaminophen [Tylenol] 325 MG tablet 650 mg Feeding Tube Q4H PRN PRNRF: 0 fluoxetine 20 MG capsule 20 mg Feeding Tube DAILY RF: 0 propranolol 40 MG tablet 40 mg Feeding Tube DAILY RF: 0 ipratropium-albuterol 0.5 mg-3 mg(2.5 mg base)/3 mL solution for nebulization 3 ml IH Q4H RF: 0 omeprazole 20 mg capsule,delayed release(DR/EC) 20 mg Feeding Tube DAILY RF: 0 bisacodyl [Dulcolax (bisacodyl)] 10 mg suppository 10 mg MI ONCE RF: 0 amantadine HCl 100 MG tablet 200 mg Feeding Tube BID RF: 0 polyethylene glycol 3350 17 GM powder in packet 17 gm Feeding Tube DAILY PRNRF: 0 melatonin 3 MG tablet 3 mg Feeding Tube HS PRNRF: 0 calcium carbonate 500 MG tablet,chewable 1 tab Feeding Tube .Q6H, PRN PRNRF: 0 docusate sodium 100 MG capsule 100 mg BID PRNRF: 0 ropinirole [Requip] 0.25 MG tablet 0.25 mg Feeding Tube TID RF: 0 acetaminophen 650 mg Suppository 650 mg MI Q4H PRN PRNRF: 0 naproxen sodium 220 mg Tablet 440 mg Feeding Tube BID RF: 0 lactose-reduced food with fibr [Jevity 1.2 Kamlesh] 0.06 gram-1.2 kcal/mL Liquid 1 Feeding Tube QID RF: 0 Changed carbidopa-levodopa [Rytary] 48.75-195 mg Capsule, Extended Release 1 cap PO QID Qty: 1 RF: 0 Discontinued levofloxacin [Levaquin] 750 mg tablet 750 mg Feeding Tube HS RF: 0 Discharge Instructions Instructions: Altered Mental Status (GEN) Stand Alone Forms: Nursing Discharge Form Referrals: Rosina,Barbara, RIGGER APPRENTICE [Primary Care Provider] - Activity:: Activity as Tolerated Equipment/Supplies:: No Equipment Needed Diet:: NPO. Tube feedings per nutrition recommendations. Discharge Orders Discharge Orders: Discharge Order (Routine); Ordered 04/06/18 Ordered By: Zita Mock Exam Narrative Exam Narrative: General: awake and alert, tremulous, nondiaphoretic. HEENT: normocephalic, atraumatic, pupils equal and round. Mucous membranes slightly dry. Neck: supple. No JVD. Cardiovascular: heart has regular rate and rhythm, no murmur, gallop or rub. Respiratory: respirations even and unlabored. Lung sounds clear to auscultation throughout. Abdomen: soft, normoactive bowel sounds, peg tube in place to left abdomen, skin clear at site. Extremities: without clubbing, cyanosis or edema. DS: Data Vitals/I&O Vitals and I&O: Vital Signs Temperature 37.3 C 04/06/18 07:30 Temperature Source Tympanic 04/06/18 07:30 Pulse 87 04/06/18 07:30 Pulse Rhythm Regular 04/06/18 10:22 Pulse 95 H 04/05/18 07:31 Respiratory Rate 18 04/06/18 07:30 Respiratory Effort 04/06/18 10:22 Respiratory Depth Normal 04/06/18 10:22 Respiratory Pattern Normal 04/06/18 10:22 Blood Pressure 119/68 04/06/18 07:30 Blood Pressure Mean 89 04/05/18 07:31 Pulse Oximetry 98 04/06/18 07:30 Oxygen Delivery Method Nasal Cannula 04/06/18 07:30 Oxygen Flow Rate 2 04/06/18 07:30 Pain Level 4 04/05/18 08:08 Comment 04/05/18 11:12 Intake & Output 04/05/18 04/05/18 04/06/18 11:59 23:59 11:59 Intake Total 780 / 780 390 / 390 Output Total 0 / 0 Balance 780 / 780 390 / 390 Weight 53.8 kg 48 kg Intake: Intake, Tube Feeding Amount 780 / 780 390 / 390 Output: Output, Residual 0 / 0 Other: Urine Color Light Jeannie Dark Jeannie Urine Appearance Clear Clear Urine Odor None Normal Comment Incontinent of bowel & bladder- barrier wipes used grossly incontinent Pt dry. Voiding Methods Diaper Diaper Diaper Incontinent Incontinent Incontinent Completed studies during hospitalization [Text1]: PORTABLE AP CHEST: 0455 HOURS 04/05/18 The heart is not enlarged. The lungs are clear. No pleural effusion identified on this frontal film. CONCLUSION: No evidence of acute disease. CT ANGIOGRAPHY CHEST: 04/05/18 CT angiography was performed with multi slice acquisition and multi planar and 3D reconstruction. CT angiography of the chest was attempted. An IV had been placed and the IV infiltrated on contrast injection. The patient was unable to remain motionless for this examination. Examination can be attempted again if a stable IV can be placed. However, I would note that the patient may need to be sedated in order to obtain a scan due to her inability to hold still. EEG 04/05/18: INTERPRETATION: This EEG is normal during the awake state as well as during photic stimulation. 04/05/18: CT ANGIOGRAPHY CHEST: CT angiography was performed with multi slice acquisition and multi planar and 3D reconstruction. CT Angiography of the chest was performed with a bolus infusion of 100 cc's of Omnipaque 350. Images obtained through the upper abdomen show grossly unremarkable appearance of liver, spleen, pancreas, adrenals and visualized portions of the kidneys. There is no evidence of pulmonary embolic disease. No thoracic aortic dissection or aneurysm. The tracheobronchial tree appears intact. The lungs are grossly clear except for right lower lobe small calcified pulmonary nodules seen superiorly. No pleural effusion. CONCLUSION: No evidence of pulmonary embolic disease. DUPLEX VENOUS ULTRASOUND BOTH LOWER EXTREMITIES: Duplex evaluation of the deep venous systems was performed according to the usual protocol. The deep veins are freely compressible throughout to the level of the popliteal veins. There is normal doppler flow visible throughout and there is excellent flow augmentation with manual calf compression. CONCLUSION: No evidence of deep venous thrombosis. Labs on day of discharge: Labs from last 24 hours 04/06/18 04/06/18 07:00 07:00 WBC 5.67 D RBC 3.29 L Hgb 10.0 L Hct 31.3 L MCV 95.1 H MCH 30.4 MCHC 31.9 L RDW 14.9 H Plt Count 216 MPV 9.9 Immature Gran % 0.5 Neutrophils % 49.4 Lymphocytes % 32.8 Monocytes % 12.9 Eosinophils % 3.2 Basophils % 1.2 Absolute Neutrophils 2.80 Absolute Lymphocytes 1.86 Absolute Monocytes 0.73 H Absolute Eosinophils 0.18 Absolute Basophils 0.07 Sodium 139 Potassium 4.0 Chloride 102 Carbon Dioxide 29.6 Anion Gap 7.4 BUN 30 H Creatinine 0.84 Estimated GFR/1.73 m2 >= 60.00 Glucose 97 Calcium 9.6 Preliminary micro results at discharge 04/05/18 05:05 Blood Culture - Preliminary Blood NO GROWTH 24 HOURS 04/05/18 04:43 Blood Culture - Preliminary Blood NO GROWTH 24 HOURS PFSH Family History Mother AMI (acute myocardial infarction) Father AMI (acute myocardial infarction) Medical History 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) Ambulatory dysfunction (Chronic) Recurrent aspiration events (Chronic) Failure to thrive (Chronic) Seizure (Resolved) NMS (neuroleptic malignant syndrome) (Resolved) Abnormal EKG (Resolved) Hyperlipidemia type III (Chronic) Anemia (Chronic) History of DIC syndrome (Resolved) Toxic metabolic encephalopathy (Resolved) UTI (urinary tract infection) (Resolved) Dysphagia (Chronic) Encephalopathy acute (Resolved) Fall (Chronic) Acute respiratory failure with hypoxia (Resolved) Pneumonia (Resolved) Anemia (Chronic) Acute kidney injury (Resolved) Parkinsons disease (Chronic) Secondary rhabdomyolysis (Resolved) Non-ST elevation DC (NSTEMI) (Resolved) Essential hypertension (Chronic) Hyperlipidemia (Chronic) Obesity (Chronic) Osteoarthritis (Chronic) Parkinson's disease (Chronic) PEG (percutaneous endoscopic gastrostomy) adjustment/replacement/removal (Resolved) Social History lives independently: No number of children: 2 number of grandchildren: 1 Smoking/Tobacco Use Status: Never alcohol intake: never substance use type: does not use Surgical History History of vaginal hysterectomy (Resolved)
[2018-04-06 11:12] VITALS: BP 131/93; PULSE 83; RESP 16; TEMP 37.1; O2SAT 99
== END 2018-04-06 12:40 | disposition skilled nursing facility (03) | DRG 204 ==
LOC: ER 07:27 → MS 07:45
PROVIDERS: Admitting Provider Internal Medicine; Emergency Provider Student in an Organized Health Care Education/Training Program; PCP Nurse Practitioner Family; Visit Provider Internal Medicine
DX: R06.82 Tachypnea, not elsewhere classified (principal); Z68.1 Body mass index [BMI] 19.9 or less, adult; R79.1 Abnormal coagulation profile; R41.82 Altered mental status, unspecified; G20 Parkinson's disease; Q99.8 Other specified chromosome abnormalities; R13.10 Dysphagia, unspecified; G24.9 Dystonia, unspecified; Z93.1 Gastrostomy status; K21.9 Gastro-esophageal reflux disease without esophagitis; F32.9 Major depressive disorder, single episode, unspecified; I10 Essential (primary) hypertension; Z71.3 Dietary counseling and surveillance
CPT/HCPCS: 36415; 71275; 80048; 80053; 82805; 87040; 87081; 93005; 95816; 96361; 96374; 99223; 99239; 99255; 99285; J1650; 71045; 81003; 83605; 83880; 84484; 85025; 85379; 93010; 93970; J1200; J2060

== ENCOUNTER 2018-05-01 12:36 | Outpatient (REF) | payer MEDICARE, MEDICAID, SELFPAY ==
[2018-05-01 14:13] LABS: Bilirubin Negative (Negative); Blood Negative (Negative); Glucose Negative (Negative); Ketones Negative (Negative); Leukocyte Esterase Negative (Negative); Nitrite Negative (Negative)
[2018-05-01 14:15] LABS: Clarity Sl Cloudy
[2018-05-01 14:33] LABS: Bacteria Moderate HPF (Negative); Crystals Moderate Amorphous HPF (Negative); Epithelial Cells Rare HPF (Negative); Mucus Negative (Negative); Other Cells Few Transitional (Negative); RBC Negative (0-2)
[2018-05-01 14:34] LABS: C & S Indicated? Yes; Casts Negative LPF (Negative)
== END 2018-05-01 12:56 ==
LOC: LBN 12:36
PROVIDERS: Family Medicine; PCP Nurse Practitioner Family; Visit Provider Internal Medicine
DX: N39.41 Urge incontinence; N17.9 Acute kidney failure, unspecified; R50.9 Fever, unspecified
CPT/HCPCS: 87077; 81003; 81015; 87086; 87186

== ENCOUNTER 2018-05-07 08:29 | Inpatient (IN) | payer MEDICARE, MEDICAID, SELFPAY ==
[2018-05-07] VITALS (31 sets, daily range): BP systolic 121–180; BP diastolic 44–92; PULSE 61–114; RESP 5–30; TEMP 37.2–40; O2SAT 92–100
--- NOTE | 2018-05-07 08:29 | W.ED.GENAD ---
Discharge Plan Disposition Condition: Good Discharge Details Chief Complaint: Fever Reason For Visit: FEVER Admit Date/Time: 05/08/18 06:50 Admit Provider: Josh Jo Attending Provider: Josh Jo Primary Care Provider: Barbara Almaguer ED Provider: Jessica Brooks Discharge Instructions Activity:: bed rest Diet:: TF: jevity as prior to admission Discharge Data Discharge Date/Time-TO BE ENTERED AT DEPARTURE: 05/07/18 11:41 Discharge Physician: Lauren Klein Medical Decision Making Jaylyn Celeste is a 53 y/o woman with h/o advanced Parkinson's disease, NSTEMI, hypertension, hyperlipidemia, G-tube in place, recurrent aspiration events presenting to the emergency department with fever. Exam patient is chronically ill-appearing, has generalized tremor, is alert but has difficulty speaking apparently secondary to worsening tremor which patient has had multiple times in the past per record review and Dr. Barrientos Concern for infection of unknown source at this time, suspect pulmonary. Doubt meningitis. Exam/history not consistent with noninfectious cause of hyperthermia. Plan for broad-spectrum antibiotics, IV fluid hydration, EKG, chest x-ray, UA, screening labs, telemetry, anticipate admission. Will monitor and reassess. UA shows possible UTI. CXR clear, though exam/hx more c/w with pulmonary process. I spoke with Dr. Nobles, who reported that patient has presented similar to this multiple times, even with minor infections. She has some concern that fever may be related to some type of autonomic dysregulation. Given concern for possible early sepsis, plan for admission. Clinical Impression: fever, UTI Disposition: [facility] inpatient Medical Records Medical records reviewed: Yes I reviewed the patient's medical records. Imaging Data Radiologic Study: Attestation: I personally reviewed and interpreted this imaging study as follows: Radiologist's impression: CHEST X-RAY: Portable AP view. Comparison 04/05/18 Heart size and pulmonary vasculature are within normal limits. The lungs are clear and well expanded. No effusions or pneumothoraces are identified. IMPRESSION: No acute pulmonary process. Lab Data Lab results reviewed: Yes I reviewed the patient's lab results. ECG Data Attestation: I personally reviewed and interpreted this ECG (s) as follows: Interpretation: EKG difficult to interpret secondary to significant artifact caused by tremor. Regular narrow QRS, likely sinus tachycardia approximately 110, no apparent STEMI. Non-diagnostic EKG. HPI General Mode of arrival: EMS. Date/Time Provider Initiated Documentation: 05/07/18 08:33. Limitations to Documentation: physical limitation. Information obtained by: RN/MD, RN notes reviewed and old records reviewed. HPI Narrative: Jaylyn Celeste is a 53 y/o woman with h/o advanced Parkinson's disease, NSTEMI, hypertension, hyperlipidemia, G-tube in place, recurrent aspiration events presenting to the emergency department with fever. History provided by Dr. Nobles at [facility]; she reports fever this morning of unknown origin, however patient's breathing seems increasingly labored compared to normal. Patient was alert, talking yesterday. Patient is chronically ill with poor long-term prognosis. Patient does have difficulty with phonation, and in the past has become nonverbal with illness despite being alert. Patient is unable to provide history secondary to tremor, I am unable to understand her phonation at this time. Related Data Home Medications Medication Instructions Recorded Confirmed baclofen 10 mg FEEDING TUBE HS prn #30 07/25/16 05/14/18 tab-cap amantadine HCl 200 mg FEEDING TUBE BID 08/15/16 05/14/18 acetaminophen [Tylenol] 650 mg FEEDING TUBE Q4H PRN PRN 11/15/16 05/14/18 tab-cap fluoxetine 20 mg FEEDING TUBE DAILY tab-cap 11/15/16 05/14/18 polyethylene glycol 3350 17 gm FEEDING TUBE DAILY PRN 08/15/17 05/14/18 propranolol 40 mg FEEDING TUBE DAILY 12/25/17 05/14/18 calcium carbonate 1 tab FEEDING TUBE .Q6H, PRN PRN 01/04/18 05/14/18 docusate sodium 100 mg BID PRN 01/04/18 05/14/18 melatonin 3 mg FEEDING TUBE HS PRN 01/04/18 05/14/18 ropinirole [Requip] 0.25 mg FEEDING TUBE TID 03/07/18 05/14/18 Jevity 1.2 Kamlesh 1 dose FEEDING TUBE QID 03/08/18 05/14/18 acetaminophen 650 mg MT Q4H PRN PRN 03/08/18 05/14/18 naproxen sodium 440 mg FEEDING TUBE BID 03/08/18 05/14/18 bisacodyl 10 mg rectal suppository 10 mg MT ONCE 11/12/18 12/24/18 ipratropium-albuterol 0.5 mg-3 3 ml IH Q4H ml 04/02/18 05/14/18 mg(2.5 mg base)/3 mL nebulization soln omeprazole 20 mg capsule,delayed 20 mg FEEDING TUBE DAILY 04/02/18 05/14/18 release Rytary 1 cap PO QID #1 cap 04/06/18 05/14/18 lorazepam 0.5 mg FEEDING TUBE TID 05/14/18 05/14/18 Previous Rx's Medication Instructions Recorded Rytary 1 cap PO QID #1 cap 04/06/18 Allergies Allergy/AdvReac Type Severity Reaction Status Date / Time environmental Allergy Uncoded 04/05/18 05:19 General SHAWN: 3 Review of Systems Review of Systems Review of systems provided by Dr. 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) Ambulatory dysfunction (Chronic) Urinary incontinence (Chronic) Recurrent aspiration events (Chronic) Failure to thrive (Chronic) Seizure (Resolved) NMS (neuroleptic malignant syndrome) (Resolved) Abnormal EKG (Resolved) Hyperlipidemia type III (Chronic) Essential hypertension (Chronic) Anemia (Chronic) History of DIC syndrome (Resolved) Toxic metabolic encephalopathy (Resolved) UTI (urinary tract infection) (Resolved) Dysphagia (Chronic) Encephalopathy acute (Resolved) Fall (Chronic) Acute respiratory failure with hypoxia (Resolved) Pneumonia (Resolved) Anemia (Chronic) Acute kidney injury (Resolved) Parkinsons disease (Chronic) Secondary rhabdomyolysis (Resolved) Non-ST elevation MS (NSTEMI) (Resolved) Essential hypertension (Chronic) Hyperlipidemia (Chronic) Obesity (Chronic) Osteoarthritis (Chronic) Parkinson's disease (Chronic) PEG (percutaneous endoscopic gastrostomy) adjustment/replacement/removal (Resolved) Surgical History History of vaginal hysterectomy (Resolved) Family History Mother AMI (acute myocardial infarction) Father AMI (acute myocardial infarction) Social History caregiver/support person: Yes household members: other details: lives in a SNF at [facility] housing: mcc lives independently: No number of children: 2 number of grandchildren: 1 mcc: Yes current occupational status: disabled diet: other caffeine: No eating out: rarely or never Smoking/Tobacco Use Status: Never alcohol intake: never substance use type: does not use Exam Narrative Exam Narrative: Constitutional: Chronically ill-appearing, alert, tries to respond when asked questions but has difficulty with phonation HENT: head atraumatic, normocephalic normal inspection, mucous membranes dry Eyes: conjunctiva normal, sclera normal, pupils 3mm b/l Neck: no stridor, normal ROM, trachea midline Chest: normal inspection Resp: Coarse breath sounds throughout, increased work of breathing Cardio: normal rate, normal rhythm, no murmur appreciated GI: abdomen soft, non-tender, non-distended, G-tube in place with site clean/dry/intact Back: normal inspection, no rash Skin: warm, dry, normal color, no rash Neuro: alert, increased tone throughout, diffuse tremor Ext: no edema
[2018-05-07 08:56] LABS: Lactate-non-spesis 1.1 mmol/L (0.6-1.4)
[2018-05-07] MEDS: Normal Saline 1,000 ML 1000 ML IV ×2 (08:56→10:30)
[2018-05-07 09:03] LABS: Abs Immature Grans 0.07 k/cumm (0.0-0.09); Absolute Basophil Count 0.05 k/cumm (0.0-0.2); Absolute Lymphocyte Count 0.93 k/cumm (1.2-3.4); Absolute Monocyte Count 1.13 k/cumm (0.11-0.7); Absolute Neutrophil Count 11.15 k/cumm (1.2-6.7); Basophils % 0.4; HCT 31.6 % (36.0-46.0); HGB 10.2 g/dL (12.0-15.5); Immature Grans % 0.5; Mean Corp. HGB Concentration 32.3 g/dL (32.0-36.0); Mean Corpuscular Hemoglobin 31.2 pg (27.0-33.0); Mean Corpuscular Volume 96.6 fL (80-95); Mean Platelet Volume 10.6 fL (8.0-11.0); Monocytes % 8.5; Neutrophils % 83.6; Platelet Count 270 x1000/uL (130-400); RBC 3.27 m/cumm (4.00-5.20); RBC Distribution Width 14.9 % (11.7-14.6); White Blood Cell Count 13.34 k/cumm (4.4-10.8)
--- NOTE | 2018-05-07 09:07 | DI.RAD_ITS ---
SYMPTOM/DIAGNOSIS: FEVER, COUGH CHEST X-RAY: Portable AP view. Comparison 04/05/18 Heart size and pulmonary vasculature are within normal limits. The lungs are clear and well expanded. No effusions or pneumothoraces are identified. IMPRESSION: No acute pulmonary process.
[2018-05-07 09:14] LABS: Bilirubin Negative (Negative); Blood Trace-intact (Negative); Clarity Sl Cloudy; Glucose Negative (Negative); Ketones Negative (Negative); Leukocyte Esterase Small (Negative); Nitrite Negative (Negative); Specific Gravity 1.025 (1.005-1.025); Urobilinogen 0.2 EU/dL (Up TO 0.2)
[2018-05-07 09:15] LABS: ALT 14 U/L (12-78); AST 26 U/L (15-37); Albumin 3.5 g/dL (3.4-5.0); Alkaline Phosphatase 98 U/L (46-116); Anion Gap 10.3 mmol/L (3-11); BUN 41 mg/dL (7-18); Bilirubin, Total 0.5 mg/dL (0.2-1.0); CO2 29.7 mmol/L (21.0-32.0); CREATININE 0.86 mg/dL (0.55-1.02); Calcium 9.7 mg/dL (8.5-10.1); Chloride 103 mmol/L (98-107); Glucose 144 mg/dL (70-100); Potassium 4.3 mmol/L (3.5-5.1); Sodium 143 mmol/L (136-145); Total Protein 7.8 g/dL (6.4-8.2); Troponin I 0.03 ng/mL (0.00-0.06)
[2018-05-07 09:27] LABS: Bacteria Many HPF (Negative); Crystals Negative HPF (Negative); Epithelial Cells Moderate HPF (Negative); Mucus Negative (Negative); Other Cells Few Renal (Negative); RBC 0-2 (0-2)
[2018-05-07 09:28] LABS: C & S Indicated? No/Sq. Contamination
[2018-05-07] MEDS: Ibuprofen 100 MG/5 ML CUP 600 MG PO (09:33)
[2018-05-07] MEDS: CEFEPIME 2 GM in Normal Saline 100 ML IVPB ×2 (09:33→20:03)
--- NOTE | 2018-05-07 09:43 | NUR.NOTE ---
patient alert and fololows coomand, no audible wheezing, number [id number] anguillan marks catheter placed MD aware. labs sent, patient receiving anti-biotics per MD order Nursing Note:
[2018-05-07] MEDS: VANCOMYCIN 1,500 MG in Normal Saline 500 ML 333.3333 MG IVPB (10:02)
[2018-05-07 10:44] LABS: Bilirubin Negative (Negative); Blood Trace-intact (Negative); Clarity Clear; Glucose Negative (Negative); Ketones Negative (Negative); Leukocyte Esterase Negative (Negative); Nitrite Negative (Negative); Specific Gravity 1.025 (1.005-1.025); Urobilinogen 0.2 EU/dL (Up TO 0.2); pH 5.5 (5-8)
[2018-05-07 10:54] LABS: Bacteria Few HPF (Negative); Epithelial Cells Few HPF (Negative); Other Cells Few Renal (Negative)
[2018-05-07 10:55] LABS: C & S Indicated? Yes; Crystals Rare Calcium Oxalate HPF (Negative); Mucus Moderate (Negative)
--- NOTE | 2018-05-07 11:09 | NUR.NOTE ---
patient vss, report given to Nneka Rose patient to be admitted Nursing Note:
--- NOTE | 2018-05-07 11:36 | NUR.NOTE ---
medication was not briught to the er from pharmacy receiving RN aware , patient trasnfered to med/surge with RN Nursing Note:
[2018-05-07] MEDS: Baclofen 10 MG TAB PO (11:47)
[2018-05-07] MEDS: Normal Saline Flush 10 ML SYR IVP (11:48)
[2018-05-07] MEDS: Acetaminophen 650 MG SUPP PR (12:31)
[2018-05-07] MEDS: Enoxaparin 40 MG/0.4 ML SYR SC (12:41)
--- NOTE | 2018-05-07 14:30 | DI.CT_ITS ---
SYMPTOM/DIAGNOSIS: FEVER POSSIBLE SEPSIS WITH UNCLEAR SOURCE CHEST CT: CT ABDOMEN AND PELVIS: The study was carried out according to the usual protocol with intravenous administration of 100.2 cc contrast material. The lungs appear intact. There is no apparent pneumothorax. There is no pleural effusion. The heart is normal and is not enlarged. There is no pericardial effusion. The aorta is normal. There is no evidence of lymphadenopathy. The bony structures are unremarkable. No acute fracture is seen. The soft tissues are unremarkable. SUMMARY: No acute abnormality in the chest. CT ABDOMEN AND PELVIS: The examination was carried out according to the usual protocol with intravenous contrast enhancement using 100 cc Omnipaque 350. The lower thorax is intact. There is no hepatic abnormality. There are no gallstones or biliary dilatation. The pancreas is normal. There is no ductal dilatation. The spleen is normal. The adrenals are normal. The kidneys are normal with no evidence of hydronephrosis. Note is made of a gastrostomy tube which lies in good position in the stomach. The bowel contains a considerable quantity of fecal material and scattered gas which would be consistent with constipation. The appendix is normal. Note is also made of gallbladder wall distension, cholelithiasis and gallbladder wall thickening and sludge. The bladder is suboptimally distended and contains a Mccall catheter. The reproductive organs as visualized are unremarkable. There is no evidence of free air in the intraperitoneal space. There is no evidence of ascites. No acute bony abnormality is seen. Note is made of air in the subcutaneous fat in the right lower quadrant which could represent the residua of a recent injection. There is no vascular abnormality. No evidence of an aortic aneurysm is seen. There is no evidence of lymphadenopathy SUMMARY: A gastrostomy tube is well positioned ending within the stomach. There are findings consistent with constipation. Gallstones are identified in the gallbladder and there is sludge with some slight thickening of the gallbladder wall. Correlation of the above findings with the patient's clinical status is recommended and if there is any further specific clinical question regarding the gallbladder status, then further assessment with an abdominal ultrasound examination is suggested. Note: The findings above regarding the status of the gallbladder are noted and the additional information should be reviewed by the E.R. staff in conjunction with the physical examination and laboratory tests.
--- NOTE | 2018-05-07 14:33 | NUR.NOTE ---
Nursing Note:pt transferred to icu ROOM 222 from med/surg room 209 for closer observation.
--- NOTE | 2018-05-07 14:35 | W.PM.HP.N ---
Date of service: 05/07/18 Time of Service: 14:38 Assessment and Plan (1) Fever: Current visit: Yes Status: Acute 53-year-old female with complicated medical history including progressive degenerative Parkinson's with history of recurrent aspiration events and several recent admissions, some with similar sepsis-like picture, presenting with acute onset high fevers and mental status changes with vital signs concerning for sepsis. As noted, tachycardia, tachypnea, high fevers, and hypoxia are concerning for sepsis. White blood cell count is elevated, which is not typical for her. Patient was initially admitted to the floor, but with concerns about her airway and the picture concerning for early sepsis, she was transferred to the ICU. I agree with starting with broad coverage with cefepime and vancomycin with blood cultures pending. I also added anti-influenza coverage, will send a PCR as we are in season and the rapid cannot be relied upon to rule out influenza. Given association of high fevers with tachypnea and hypoxia in the setting of negative chest x-ray, ordered a CT scan of the chest. Urinalysis is not consistent with urinary source. Ordered a CAT scan to continue through the abdomen and pelvis as she could have an abscess causing these recurrent febrile syndromes that have eluded clear diagnosis. She has a history of neuroleptic malignant syndrome, but this was while taking neuroleptics, which she is no longer on. There is been concern that some of the vital sign abnormalities are related to autonomic dysfunction with her Parkinson disease. This is an interesting possibility, but I do not think we can assume this given the elevated white count and the degree of her fevers. (2) Acute alteration in mental status: Current visit: No Status: Acute This appears to be secondary to toxic metabolic encephalopathy with sepsis-like picture, presumably infectious. 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 She appears to be getting seemingly worse over the past year. I did review the neurologic note from last month. Her tremor was initially traumatic, but after the fever came down she appears comfortable and will continue her outpatient dopaminergic agents. (4) Recurrent aspiration events: Current visit: No Status: Chronic Patient has G-tube, but apparently continues to eat, leading to recurrent aspiration events. With hypoxia, imagine she may have had another event. (5) Anemia: Current visit: No Status: Chronic Anemia is at level of baseline. (6) Oral mucosal lesion: Current visit: Yes Status: Acute This may be thrush. Try treating with nystatin. If does not improve she may need a biopsy of the lesion. (7) DVT prophylaxis: Current visit: No Status: Acute Lovenox (8) Discharge planning issues: Current visit: Yes Status: Acute Patient is full code per previous documentation. She is currently in the ICU. 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 History provided by Dr. Nobles at [facility]; she reports fever this morning of unclear origin, however patient's breathing seems increasingly labored compared to normal. Patient was alert, talking yesterday. History per ED and SNF report. Patient making some vocalizations but speech not intelligible currently. Reviewing records she multiple recent admissions including 04/05/18-04/06/18 for altered mental status and increasing tremors and 03/08/18-03/14/18 with a sepsis picture almost identical to her current presentation without a clear source identified but felt likely related to aspiration. In September 2017 she had an aspiration event requiring intubation and in December was transfered to [facility] with bacteremia, JOSEPH, Rhabdo, and NMS, NSTEMI. Review of Systems Review of Systems no genie seizures noted from the SNF. no diarrhea or urinary changes noted. 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) Ambulatory dysfunction (Chronic) Recurrent aspiration events (Chronic) Failure to thrive (Chronic) Seizure (Resolved) NMS (neuroleptic malignant syndrome) (Resolved) Abnormal EKG (Resolved) Hyperlipidemia type III (Chronic) Anemia (Chronic) History of DIC syndrome (Resolved) Toxic metabolic encephalopathy (Resolved) UTI (urinary tract infection) (Resolved) Dysphagia (Chronic) Encephalopathy acute (Resolved) Fall (Chronic) Acute respiratory failure with hypoxia (Resolved) Pneumonia (Resolved) Anemia (Chronic) Acute kidney injury (Resolved) Parkinsons disease (Chronic) Secondary rhabdomyolysis (Resolved) Non-ST elevation [place] (NSTEMI) (Resolved) Essential hypertension (Chronic) Hyperlipidemia (Chronic) Obesity (Chronic) Osteoarthritis (Chronic) Parkinson's disease (Chronic) PEG (percutaneous endoscopic gastrostomy) adjustment/replacement/removal (Resolved) Surgical History History of vaginal hysterectomy (Resolved) Family History Mother AMI (acute myocardial infarction) Father AMI (acute myocardial infarction) Social History lives independently: No number of children: 2 number of grandchildren: 1 Smoking/Tobacco Use Status: Never alcohol intake: never substance use type: does not use Meds Home Medications Medication Instructions Recorded Confirmed Type baclofen 10 mg FEEDING TUBE HS prn #30 07/25/16 05/07/18 History tab-cap amantadine HCl 200 mg FEEDING TUBE BID 08/15/16 05/07/18 History acetaminophen [Tylenol] 650 mg FEEDING TUBE Q4H PRN PRN 11/15/16 05/07/18 History tab-cap fluoxetine 20 mg FEEDING TUBE DAILY tab-cap 11/15/16 05/07/18 History polyethylene glycol 3350 17 gm FEEDING TUBE DAILY PRN 08/15/17 05/07/18 History propranolol 40 mg FEEDING TUBE DAILY 12/25/17 04/05/18 History calcium carbonate 1 tab FEEDING TUBE .Q6H, PRN PRN 01/04/18 05/07/18 History docusate sodium 100 mg BID PRN 01/04/18 05/07/18 History melatonin 3 mg FEEDING TUBE HS PRN 01/04/18 05/07/18 History ropinirole [Requip] 0.25 mg FEEDING TUBE TID 03/07/18 05/07/18 History Jevity 1.2 Kamlesh 1 FEEDING TUBE QID 03/08/18 History acetaminophen 650 mg [place] Q4H PRN PRN 03/08/18 05/07/18 History naproxen sodium 440 mg FEEDING TUBE BID 03/08/18 05/07/18 History bisacodyl 10 mg rectal suppository 10 mg [place] ONCE 04/02/18 05/07/18 History ipratropium-albuterol 0.5 mg-3 3 ml IH Q4H ml 04/02/18 05/07/18 History mg(2.5 mg base)/3 mL nebulization soln omeprazole 20 mg capsule,delayed 20 mg FEEDING TUBE DAILY 04/02/18 05/07/18 History release carbidopa-levodopa [Rytary] 1 cap PO QID #1 cap 04/06/18 04/05/18 Rx Allergies Allergy/AdvReac Type Severity Reaction Status Date / Time environmental Allergy Uncoded 04/05/18 05:19 Exam Narrative Exam Narrative: General: Initially very sweaty with constant tremor and increased tone with arms to chest. Focalizes in response to some questions during exam, but not intelligible. In moderate distress. After fever came down, minimal tremor though tone is still elevated. No acute distress. HEENT: Atraumatic. Conjunctive are clear without icterus. Pupils reactive bilaterally. Mouth very dry with bloody crust on lips. After cleaning area of redness and ulceration with some bleeding noted on hard palate with some whitish exudate. Neck is supple with no lymphadenopathy or other masses. Lungs: Tachypneic initially, but no rales or wheezes. Cardiovascular: Tachycardic, but regular. No murmurs gallops or rubs Abdomen: Active bowel sounds, soft, nondistended. Raw area with slight yellowish discharge below knob of G-tube, but not read in the surrounding skin. No masses palpable. Extremities: Pulses 2+ dorsalis pedis bilaterally. No cyanosis or edema. No joint redness or swelling noted. Neurologic: During fever, traumatic constant tremor to the arms, resolved after fever. Tone is diffusely increased as above, though roughly symmetric. Exam limited by mental status. Skin: No rashes or other skin lesions. No significant bruising. CXR: No acute pulmonary process. Plans a rapid testing negative. Results Labs : 05/07/18 08:45 05/07/18 08:45 Laboratory Results - last 24 hr 05/07/18 05/07/18 05/07/18 08:45 08:45 08:45 WBC 13.34 H RBC 3.27 L Hgb 10.2 L Hct 31.6 L MCV 96.6 H MCH 31.2 MCHC 32.3 RDW 14.9 H Plt Count 270 MPV 10.6 Immature Gran % 0.5 Neutrophils % 83.6 Lymphocytes % 7.0 Monocytes % 8.5 Eosinophils % 0.0 Basophils % 0.4 Absolute Neutrophils 11.15 H Absolute Lymphocytes 0.93 L Absolute Monocytes 1.13 H Absolute Eosinophils 0.00 Absolute Basophils 0.05 Sodium 143 Potassium 4.3 Chloride 103 Carbon Dioxide 29.7 Anion Gap 10.3 BUN 41 H Creatinine 0.86 Estimated GFR/1.73 m2 >= 60.00 Glucose 144 H Lactate 1.1 Calcium 9.7 Total Bilirubin 0.5 AST 26 ALT 14 Alkaline Phosphatase 98 Troponin I 0.03 Total Protein 7.8 Albumin 3.5 Urine Color Urine Clarity Urine pH Ur Specific [place] Urine Protein Urine Ketones Urine Blood Urine Nitrite Urine Bilirubin Urine Urobilinogen Ur Leukocyte Esterase Urine RBC Urine WBC Ur Epithelial Cells Urine Crystals Urine Bacteria Urine Casts Urine Mucus Urine Other Ur Culture Indicated? Urine Glucose 05/07/18 05/07/18 09:10 10:35 WBC RBC Hgb Hct MCV MCH MCHC RDW Plt Count MPV Immature Gran % Neutrophils % Lymphocytes % Monocytes % Eosinophils % Basophils % Absolute Neutrophils Absolute Lymphocytes Absolute Monocytes Absolute Eosinophils Absolute Basophils Sodium Potassium Chloride Carbon Dioxide Anion Gap BUN Creatinine Estimated GFR/1.73 m2 Glucose Lactate Calcium Total Bilirubin AST ALT Alkaline Phosphatase Troponin I Total Protein Albumin Urine Color Yellow Yellow Urine Clarity Sl cloudy Clear Urine pH 7.0 5.5 Ur Specific [place] 1.025 1.025 Urine Protein 30 H 30 H Urine Ketones Negative Negative Urine Blood Trace-intact H Trace-intact H Urine Nitrite Negative Negative Urine Bilirubin Negative Negative Urine Urobilinogen 0.2 0.2 Ur Leukocyte Esterase Small H Negative Urine RBC 0-2 3-5 H Urine WBC 10-20 10-20 Ur Epithelial Cells Moderate Few Urine Crystals Negative Rare calcium oxalate Urine Bacteria Many Few Urine Casts Comment Urine Mucus Negative Moderate Urine Other Few renal Few renal Ur Culture Indicated? No/sq. contamination Yes Urine Glucose Negative Negative Last Vital Signs Temp 37.2 C 05/07/18 13:32 Pulse 82 05/07/18 13:32 Resp 22 05/07/18 12:57 BP 176/69 H 05/07/18 12:57 Pulse Ox 100 05/07/18 13:32
--- NOTE | 2018-05-07 14:40 | HPE_ITS ---
Date of service: 05/07/18 Time of Service: 14:38 Assessment and Plan (1) Fever: Current visit: Yes Status: Acute 53-year-old female with complicated medical history including progressive degenerative Parkinson's with history of recurrent aspiration events and several recent admissions, some with similar sepsis-like picture, presenting with acute onset high fevers and mental status changes with vital signs concerning for sepsis. As noted, tachycardia, tachypnea, high fevers, and hypoxia are concerning for sepsis. White blood cell count is elevated, which is not typical for her. Patient was initially admitted to the floor, but with concerns about her airway and the picture concerning for early sepsis, she was transferred to the ICU. I agree with starting with broad coverage with cefepime and vancomycin with blood cultures pending. I also added anti-influenza coverage, will send a PCR as we are in season and the rapid cannot be relied upon to rule out influenza. Given association of high fevers with tachypnea and hypoxia in the setting of negative chest x-ray, ordered a CT scan of the chest. Urinalysis is not consistent with urinary source. Ordered a CAT scan to continue through the abdomen and pelvis as she could have an abscess causing these recurrent febrile syndromes that have eluded clear diagnosis. She has a history of neuroleptic malignant syndrome, but this was while taking neuroleptics, which she is no longer on. There is been concern that some of the vital sign abnormalities are related to autonomic dysfunction with her Parkinson disease. This is an interesting possi bility, but I do not think we can assume this given the elevated white count and the degree of her fevers. (2) Acute alteration in mental status: Current visit: No Status: Acute This appears to be secondary to toxic metabolic encephalopathy with sepsis-like picture, presumably infectious. 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 She appears to be getting seemingly worse over the past year. I did review the neurologic note from last month. Her tremor was initially traumatic, but after the fever came down she appears comfortable and will continue her outpatient dopaminergic agents. (4) Recurrent aspiration events: Current visit: No Status: Chronic Patient has G-tube, but apparently continues to eat, leading to recurrent aspiration events. With hypoxia, imagine she may have had another event. (5) Anemia: Current visit: No Status: Chronic Anemia is at level of baseline. (6) Oral mucosal lesion: Current visit: Yes Status: Acute This may be thrush. Try treating with nystatin. If does not improve she may need a biopsy of the lesion. (7) DVT prophylaxis: Current visit: No Status: Acute Lovenox (8) Discharge planning issues: Current visit: Yes Status: Acute Patient is full code per previous documentation. She is currently in the ICU. 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 History provided by Dr. Nobles at [facility]; she reports fever this morning of unclear origin, however patient's breathing seems increasingly labored compared to normal. Patient was alert, talking y esterday. History per ED and SNF report. Patient making some vocalizations but speech not intelligible currently. Reviewing records she multiple recent admissions including 04/05/18-04/06/18 for altered mental status and increasing tremors and 03/08/18-03/14/18 with a sepsis picture almost identical to her current presentation without a clear source identified but felt likely related to aspiration. In September 2017 she had an aspiration event requiring intubation and in December was transfered to [facility] with bacteremia, JOSEPH, Rhabdo, and NMS, NSTEMI. Review of Systems Review of Systems no genie seizures noted from the SNF. no diarrhea or urinary changes noted. 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) Ambulatory dysfunction (Chronic) Recurrent aspiration events (Chronic) Failure to thrive (Chronic) Seizure (Resolved) NMS (neuroleptic malignant syndrome) (Resolved) Abnormal EKG (Resolved) Hyperlipidemia type III (Chronic) Anemia (Chronic) History of DIC syndrome (Resolved) Toxic metabolic encephalopathy (Resolved) UTI (urinary tract infection) (Resolved) Dysphagia (Chronic) Encephalopathy acute (Resolved) Fall (Chronic) Acute respiratory failure with hypoxia (Resolved) Pneumonia (Resolved) Anemia (Chronic) Acute kidney injury (Resolved) Parkinsons disease (Chronic) Secondary rhabdomyolysis (Resolved) Non-ST elevation [place] (NSTEMI) (Resolved) Essential hypertension (Chronic) Hyperlipidemia (Chronic) Obesity (Chronic) Osteoarthritis (Chronic) Parkinson's disease (Chronic) PEG (percutaneous endoscopic gastrostomy) adjustment/replacement/removal (Resolved) Surgical History History of vaginal hysterectomy (Resolved) Family History Mother AMI (acute myocardial infarction) Father AMI (acute myocardial infarction) Social History lives independently: No number of children: 2 number of grandchildren: 1 Smoking/Tobacco Use Status: Never alcohol intake: never substance use type: does not use Meds Home Medications Medication Instructions Recorded Confirmed Type baclofen 10 mg FEEDING TUBE HS prn #30 07/25/16 05/07/18 History tab-cap amantadine HCl 200 mg FEEDING TUBE BID 08/15/16 05/07/18 History acetaminophen [Tylenol] 650 mg FEEDING TUBE Q4H PRN PRN 11/15/16 05/07/18 History tab-cap fluoxetine 20 mg FEEDING TUBE DAILY tab-cap 11/15/16 05/07/18 History polyethylene glycol 3350 17 gm FEEDING TUBE DAILY PRN 08/15/17 05/07/18 History propranolol 40 mg FEEDING TUBE DAILY 12/25/17 04/05/18 History calcium carbonate 1 tab FEEDING TUBE .Q6H, PRN PRN 01/04/18 05/07/18 History docusate sodium 100 mg BID PRN 01/04/18 05/07/18 History melatonin 3 mg FEEDING TUBE HS PRN 01/04/18 05/07/18 History ropinirole [Requip] 0.25 mg FEEDING TUBE TID 03/07/18 05/07/18 History Jevity 1.2 Kamlesh 1 FEEDING TUBE QID 03/08/18 History acetaminophen 650 mg [place] Q4H PRN PRN 03/08/18 05/07/18 History naproxen sodium 440 mg FEEDING TUBE BID 03/08/18 05/07/18 History bisacodyl 10 mg rectal suppository 10 mg [place] ONCE 04/02/18 05/07/18 History ipratropium-albuterol 0.5 mg-3 3 ml IH Q4H ml 04/02/18 05/07/18 History mg(2.5 mg base)/3 mL nebulization soln omeprazole 20 mg capsule,delayed 20 mg FEEDING TUBE DAILY 04/02/18 05/07/18 History release carbidopa-levodopa [Rytary] 1 cap PO QID #1 cap 04/06/18 04/05/18 Rx Allergies Allergy/AdvReac Type Severity Reaction Status Date / Time environmental Allergy Uncoded 04/05/18 05:19 Exam Narrative Exam Narrative: General: Initially very sweaty with constant tremor and increased tone with arms to chest. Focalizes in response to some questions during exam, but not intelligible. In moderate distress. After fever came down, minimal tremor though tone is still elevated. No acute distress. HEENT: Atraumatic. Conjunctive are clear without icterus. Pupils reactive bilaterally. Mouth very dry with bloody crust on lips. After cleaning area of redness and ulceration with some bleeding noted on hard palate with some whitish exudate. Neck is supple with no lymphadenopathy or other masses. Lungs: Tachypneic initially, but no rales or wheezes. Cardiovascular: Tachycardic, but regular. No murmurs gallops or rubs Abdomen: Active bowel sounds, soft, nondistended. Raw area with slight yellowish discharge below knob of G-tube, but not read in the surrounding skin. No masses palpable. Extremities: Pulses 2+ dorsalis pedis bilaterally. No cyanosis or edema. No joint redness or swelling noted. Neurologic: During fever, traumatic constant tremor to the arms, resolved after fever. Tone is diffusely increased as above, though roughly symmetric. Exam limited by mental status. Skin: No rashes or other skin lesions. No significant bruising. CXR: No acute pulmonary process. Plans a rapid testing negative. Results Labs : 05/07/18 08:45 05/07/18 08:45 Laboratory Results - last 24 hr 05/07/18 05/07/18 05/07/18 08:45 08:45 08:45 WBC 13.34 H RBC 3.27 L Hgb 10.2 L Hct 31.6 L MCV 96.6 H MCH 31.2 MCHC 32.3 RDW 14.9 H Plt Count 270 MPV 10.6 Immature Gran % 0.5 Neutrophils % 83.6 Lymphocytes % 7.0 Monocytes % 8.5 Eosinophils % 0.0 Basophils % 0.4 Absolute Neutrophils 11.15 H Absolute Lymphocytes 0.93 L Absolute Monocytes 1.13 H Absolute Eosinophils 0.00 Absolute Basophils 0.05 Sodium 143 Potassium 4.3 Chloride 103 Carbon Dioxide 29.7 Anion Gap 10.3 BUN 41 H Creatinine 0.86 Estimated GFR/1.73 m2 >= 60.00 Glucose 144 H Lactate 1.1 Calcium 9.7 Total Bilirubin 0.5 AST 26 ALT 14 Alkaline Phosphatase 98 Troponin I 0.03 Total Protein 7.8 Albumin 3.5 Urine Color Urine Clarity Urine pH Ur Specific [place] Urine Protein Urine Ketones Urine Blood Urine Nitrite Urine Bilirubin Urine Urobilinogen Ur Leukocyte Esterase Urine RBC Urine WBC Ur Epithelial Cells Urine Crystals Urine Bacteria Urine Casts Urine Mucus Urine Other Ur Culture Indicated? Urine Glucose 05/07/18 05/07/18 09:10 10:35 WBC RBC Hgb Hct MCV MCH MCHC RDW Plt Count MPV Immature Gran % Neutrophils % Lymphocytes % Monocytes % Eosinophils % Basophils % Absolute Neutrophils Absolute Lymphocytes Absolute Monocytes Absolute Eosinophils Absolute Basophils Sodium Potassium Chloride Carbon Dioxide Anion Gap BUN Creatinine Estimated GFR/1.73 m2 Glucose Lactate Calcium Total Bilirubin AST ALT Alkaline Phosphatase Troponin I Total Protein Albumin Urine Color Yellow Yellow Urine Clarity Sl cloudy Clear Urine pH 7.0 5.5 Ur Specific [place] 1.025 1.025 Urine Protein 30 H 30 H Urine Ketones Negative Negative Urine Blood Trace-intact H Trace-intact H Urine Nitrite Negative Negative Urine Bilirubin Negative Negative Urine Urobilinogen 0.2 0.2 Ur Leukocyte Esterase Small H Negative Urine RBC 0-2 3-5 H Urine WBC 10-20 10-20 Ur Epithelial Cells Moderate Few Urine Crystals Negative Rare calcium oxalate Urine Bacteria Many Few Urine Casts Comment Urine Mucus Negative Moderate Urine Other Few renal Few renal Ur Culture Indicated? No/sq. contamination Yes Urine Glucose Negative Negative Last Vital Signs Temp 37.2 C 05/07/18 13:32 Pulse 82 05/07/18 13:32 Resp 22 05/07/18 12:57 BP 176/69 H 05/07/18 12:57 Pulse Ox 100 05/07/18 13:32
--- NOTE | 2018-05-07 16:16 | NUR.NOTE ---
Nursing Note: 1220 this nurse spoke with Carlos Alberto Houstoncum regarding the patient's change in condition. He was told that at this time the patient is considered unstable. Jacqui had no further questions.
[2018-05-07] MEDS: Omnipaque 350 MG/ML 100 ML BTL IJ (16:33)
--- NOTE | 2018-05-07 16:53 | DI.VRAD_ITS ---
EXAM: CT Chest With Contrast EXAM DATE/TIME: 05/07/2018 2:31 PM CLINICAL HISTORY: 53 years old, female; Signs and symptoms; Other: Fever, possible sepsis TECHNIQUE: Axial computed tomography images of the chest with intravenous contrast. Coronal and sagittal reformatted images were created and reviewed. COMPARISON: No relevant prior studies available. FINDINGS: Lungs: Normal. No consolidation. No masses. Pleural space: Normal. No pneumothorax. No pleural effusion. Heart: Normal. No cardiomegaly. No pericardial effusion. Aorta: Normal. No aortic aneurysm. Lymph nodes: Unremarkable. No enlarged lymph nodes. Bones/joints: Unremarkable. No acute fracture. Soft tissues: Unremarkable. IMPRESSION: No acute findings. EXAM: CT Abdomen and Pelvis With Contrast EXAM DATE/TIME: 05/07/2018 2:31 PM CLINICAL HISTORY: 53 years old, female; Signs and symptoms; Other: Fever, possible sepsis TECHNIQUE: Axial computed tomography images of the abdomen and pelvis with intravenous contrast. Coronal and sagittal reformatted images were created and reviewed. CONTRAST: 100 ml of omnipaque 350 administered intravenously. COMPARISON: No relevant prior studies available. FINDINGS: Lower thorax: See report for CT chest ABDOMEN: Liver: Normal. No mass. Gallbladder and bile ducts: Gallstones in the gallbladder. Pancreas: Normal. No ductal dilation. Spleen: Normal. No splenomegaly. Adrenals: Normal. No mass. Kidneys and ureters: Normal. No hydronephrosis. Stomach and bowel: Gastrostomy tube terminates in the stomach in good position. Findings consistent with constipation. Appendix: Normal appendix PELVIS: Bladder: Mccall catheter in the bladder. Reproductive: Unremarkable as visualized. ABDOMEN and PELVIS: Intraperitoneal space: Normal. No free air. No significant fluid collection. Bones/joints: No acute fracture. No dislocation. Soft tissues: Air in the subcutaneous fat in the right lower quadrant may be due to recent injection. Vasculature: Normal. No abdominal aortic aneurysm. Lymph nodes: Normal. No enlarged lymph nodes. IMPRESSION: 1. Gastrostomy tube terminates in the stomach in good position. 2. Findings consistent with constipation. 3. Gallstones in the gallbladder. Dictated and Authenticated by: Kim Cueva MD. Ordering:RENATA Moreno MD
[2018-05-07] MEDS: VANCOMYCIN 750 MG in Normal Saline 250 ML 250 MG IVPB (17:21)
[2018-05-07] MEDS: Albuterol/Ipratropium 3 ML UPD VIAL IH ×2 (17:48→20:02)
[2018-05-07] MEDS: Nystatin 500000 UNITS/5 ML SUSP 5ML CUP PO (20:02)
[2018-05-07] MEDS: rOPINIRole 0.5 MG TAB 0.25 MG NG (20:02)
[2018-05-07] MEDS: Propranolol 20 MG TAB 40 MG NG (20:02)
[2018-05-07] MEDS: POTASSIUM CHLORIDE/D5-0.45NACL 1,000 ML 150 MEQ IV (21:29)
[2018-05-08] VITALS (27 sets, daily range): BP systolic 122–167; BP diastolic 45–70; PULSE 51–85; RESP 2–32; TEMP 36.3–37.4; O2SAT 91–99
[2018-05-08] MEDS: VANCOMYCIN 750 MG in Normal Saline 250 ML 250 MG IVPB ×3 (02:11→17:40)
[2018-05-08] MEDS: Albuterol/Ipratropium 3 ML UPD VIAL IH ×5 (04:20→21:18)
[2018-05-08] MEDS: POTASSIUM CHLORIDE/D5-0.45NACL 1,000 ML 150 MEQ IV (05:43)
[2018-05-08] MEDS: CEFEPIME 2 GM in Normal Saline 100 ML IVPB ×2 (08:45→21:14)
--- NOTE | 2018-05-08 09:08 | PDOC.CMIN ---
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 Ambulatory dysfunction (Chronic). Recurrent aspiration events (Chronic). Failure to thrive (Chronic). Seizure (Resolved). NMS (neuroleptic malignant syndrome) (Resolved). Abnormal EKG (Resolved). Hyperlipidemia type III (Chronic). Anemia (Chronic). History of DIC syndrome (Resolved). Toxic metabolic encephalopathy (Resolved). UTI (urinary tract infection) (Resolved). Dysphagia (Chronic). Encephalopathy acute (Resolved). Fall (Chronic). Acute respiratory failure with hypoxia (Resolved). Pneumonia (Resolved). Anemia (Chronic). Acute kidney injury (Resolved). Parkinsons disease (Chronic). Secondary rhabdomyolysis (Resolved). Non-ST elevation NE (NSTEMI) (Resolved). Essential hypertension (Chronic). Hyperlipidemia (Chronic). Obesity (Chronic). Osteoarthritis (Chronic). Parkinson's disease (Chronic). PEG (percutaneous endoscopic gastrostomy) adjustment/replacement/removal (Resolved). History of vaginal hysterectomy (Resolved) PREVIOUS FUNCTIONAL STATUS/SOCIAL/FAMILY SUPPORTS:: Jaylyn resides at [facility]. She has family whom reside locally and are supportive. CM spoke with Jaylyn's brother Carlos Alberto this morning after the Palliative Care Consult with Dr. Garcia to discuss Jaylyn's change in code status. CURRENT FUNCTIONAL STATUS:: Jaylyn is lying in bed this morning. She is difficult to understand, however she is able to verbalize her wishes this morning. ADVANCE DIRECTIVES:: On file - Dr. Garcia met with Jaylyn this morning and a new COLST was completed. Jaylyn is DNR/DNI at this time. CM faxed new COLST to [facility] as well as [facility] for scanning. CM also placed a copy of the updated COLST on the front of the physical chart. Has patient been provided with information about the portal?: No Did the patient sign up for the portal?: No CODE STATUS:: Full Code INSURANCE COVERAGE / FINANCIAL ISSUES:: Medicare, Medicaid CURRENT HOME/COMMUNITY SERVICES/EQUIPMENT:: Currently Jaylyn receives all services and equipment needs at [facility] PRIMARY CARE PHYSICIAN:: Barbara Rosina POTENTIAL DISCHARGE NEEDS:: Return to [facility]& via w/c van vs. ambulance PATIENT/FAMILY EDUCATION NEEDS:: Review DC instructions, any limitations, and ongoing DC planning discussion. Discuss 'Ask Me Three' ANTICIPATED BARRIERS TO DISCHARGE:: None identified at this time. TRANSPORTATION:: Via w/c van vs. ambulance PLAN:: Jaylyn will return to [facility]& once medically cleared, she will be transported via w/c van vs. ambulance when ready.
[2018-05-08] MEDS: Propranolol 20 MG TAB 40 MG NG ×2 (09:16→21:15)
[2018-05-08] MEDS: rOPINIRole 0.5 MG TAB 0.25 MG NG ×3 (09:16→21:15)
[2018-05-08] MEDS: Nystatin 500000 UNITS/5 ML SUSP 5ML CUP PO ×3 (09:16→21:15)
[2018-05-08] MEDS: Omeprazole 20 MG CAPCR NG (09:17)
[2018-05-08] MEDS: Normal Saline Flush 10 ML SYR IVP (09:17)
[2018-05-08] MEDS: FLUoxetine 20 MG CAP NG (09:17)
--- NOTE | 2018-05-08 10:53 | PHARADMIT ---
Addendum entered by Gogo Campo 05/12/18 09:39: Pharmacy Note Subjective Patient continues treatment for possible Health care acquired Pneumonia and UTI (enterococcus) Objective vs ok, labs pending Assessment cefepime and vancomycon IV continue Plan IV Abx to run through Monday, with hopes off Monday discharge back to [facility]. Original Note: Addendum entered by Valente Lovett III 05/11/18 14:22: Pharmacy Note Subjective Patient continues treatment for possible Health care acquired Pneumonia and UTI (enterococcus) Objective VS-OK SCr-0.62 No other labs. BM yesterday. Assessment Vancomyin trough high again (27.2), dose recalculated, time adjusted. dose 750mg iv q12hrs Plan IV Abx to run through Monday, with hopes off Monday discharge back to [facility]. Original Note: Addendum entered by Valente Lovett III 05/10/18 15:01: Pharmacy Note Subjective dc'd IV ABX, then changed mind and re-ordered Vanco/Cefepime. unsure what we are treating. Will continue IV ABX for 5 days (Monday) with the hope of patient returning to SNF. Objective VS-OK No Labs Assessment Vanco trough yesterday 28.2 (dose held) Recalculated dose to 1gm IV q12hr started at 1800. Plan Watch for Vancomycin trough at 5AM tomorrow. Original Note: Admission Pharmacy Clinical Review fever Code Status Full Code Current Weight 54.8 kg Renally Cleared and Narrow Therapeutic Index Meds Crcl~58.5 mL/min current meds okay QTc Value / Action Taken QTc 418 BP Control, Fever BP 159/49 Tmax 40 (yesterday) Electrolytes reviewed within normal limits DVT Prophylaxis enoxaparin Opiate Usage / Scheduled Bowel Regimen Ordered no/prn Plt/SCr for Heparin / Enoxaparin plt 270 SCr 0.86 INR for Warfarin n/a H/H stable, WBC/Bands h/h 10.2/31.6 wbc 13.34 Antibiotic appropriateness vanco and cefepime Cultures and Sensitivities blood urine and MRSA pending, rapid flu negative Surgical ABX d/c within 24 hr n/a DM control / Insulin Dosing Bg 144 none Heart Failure (Check EF%) (MARJORIE's, B-Block, Diuretics) none IV to PO Switch n/a Home Meds Reviewed -propranolol may diminish the bronchodilatory effect of albuterol -separate admin of calcium carbonate and bisacodyl -fluoxetine may enhance the antiplatelet effect of naproxen -fluoxetine may decrease the metabolism of propranolol, watch for increased risk of adverse effects/toxicity Home Meds Not Ordered carbidopa/levodopa, docusate Comments PCR for flu, pt given one time dose of baloxavir pt has g-tube
--- NOTE | 2018-05-08 11:59 | W.PALLCONSUL ---
Date of service: 05/08/18 Time of Service: 09:47 History of Present Illness Chief Complaint: genetic variant Parkinson's Disease; COLST form; [facility] Narrative: I last saw Jaylyn at [facility] on 08/26/2017. At that time, we reviewed and filled out a COLST form. Since then, however, her health has taken a dramatic turn for the worse. She has had 11 ER visits in 2018 and 7 admissions, all since September. She was helicoptered once to [facility] for septic shock. She has been in the ICU frequently. Her former COLST form indicated aggressive interventions. She wanted to be on a vent for 5-6 months. She wanted a trial of a feeding tube for 5-6 months. Note that one was inserted by Dr. Banegas in 02/06. Despite this intervention, Jaylyn has continued to lose weight. Today she weighed 103 lbs/47 kg. I spoke to Dr. Krystal Masters (Dr. Barrientos)who is the medical data entry clerk of the SNF where Jaylyn lives. She reported that Jaylyn weighed 130 lbs in December. The [facility] EMR shows that she weighed 142 at the end of September. Her rate of weight loss is accelerating despite the feeding tube. Jaylyn noted spontaneously that The feeding tube isn't working. After I talked to Dr. Leyva, I spoke to Dr. Canseco who reported a large oozing oral lesion on the roof of Jaylyn's mouth. He had yet to discuss how aggressive Jaylyn wanted to be in the work-up of the lesion. She and I did not discuss this finding. It is possible that she has a malignancy causing her weight loss, that her weight loss is not just due to her rare genetic variant Parkinson's disease. She was alert enough at my visit, in the ICU, that we could discuss how her health has changed over the last 8 months, since I saw her last. She recognizes that she is getting sicker, weaker, more tired. She doesn't like having been hospitalized so often. She wants to stay at Rehab. She considers it her home. She would like to go back as soon as Dr. Canseco releases her. She was open to changing her code status after a discussion of what a code entails for someone whose health is as poor as Asiyas is. We discussed ribs breaking and in her case, with her weakness, her inability to come off a ventilator. Given this, she opted to change her status to DNR/DNI. Note that we did try to reach her brother Carlos Alberto Osman. Dr. Nobles has been working with Carlos Alberto about the possibility of his taking on full guardianship, if and when it is necessary. He does not want to do this yet. Jaylyn is still able to make her own medical decisions. Consults Consult date: 05/08/18 Requesting physician: Josh Jo Assessment and Plan (1) Gastrostomy tube dependent: Current visit: Yes Status: Acute Still losing weight despite feeding tube x 3 months. Still having aspiration pneumonias. Discussed with Jaylyn and her doctor, Dr. Nobles at [facility] and . Plan is to remove feeding tube in May, after the holidays, after a trial of eating on her own. Tube is not working in keeping weight on or preventing aspiration pneumonias. Given this, and her desire to eat, let her eat. (2) Parkinsons disease: Current visit: Yes Status: Chronic Severe, end-stage, non-ambulatory. Lots of contractures. Unusual form--genetic defect. Demenita associated with her PD is still mild. Still able to make her own decisions, but given the usual course of the disease, will lose this ability within the next year or so. Essential to make decisions now. (3) Dysphagia: Current visit: No Status: Chronic Due to her chronic disease. Qualifiers: Dysphagia type: unspecified Qualified Code(s): R13.10 - Dysphagia, unspecified (4) Recurrent aspiration events: Current visit: No Status: Chronic Multiple admission for aspiration pneumonias, even after feeding tube. Still would like to be transferred and given antibiotics for comfort as of this time. (5) Failure to thrive: Current visit: No Status: Chronic This year has shown a DRAMATIC decline in Asiyas health. She is clearly eligible for hospice. Dr. Nobles agrees. Will revisit removing feeding tube and coming on hospice after the new year. Did not reach her brother who is her DPOA. He needs to be included in the discussion. Qualifiers: Failure to thrive age range: in adult Qualified Code(s): R62.7 - Adult failure to thrive (6) Unintentional weight loss of 10% body weight within 6 months: Current visit: Yes Status: Acute No further interventions to help. Loss may be due to an as of yet undiagnosed oral cancer. Dr Canseco will discuss getting CT scan of head and neck. Unlikely that she will be able to tolerate any treatment IF it is cancer, but imaging would let patient and family know what was going on. (7) Goals of care, counseling/discussion: Current visit: Yes Status: Acute Redid her COLST form. Shredded her old form. Now DNR/DNI, but still wants transfer, IV abx, IVF, and limited care. Would like to return to [facility] as soon as Dr. Canseco allows her to. Not that [employer] Tender Kecia Lopez was present during COLST discussion and signing. Review of Systems Constitutional Reports daytime sleepiness, Reports fever(s), Reports lethargy, Reports malaise, Reports poor appetite, Reports weakness and Reports weight loss Eyes Reports requires corrective lenses ENT Reports bleeding gums, Reports halitosis, Reports dysphagia, Reports dry mouth and Reports mouth lesions Comments: mass hard palate Cardiovascular Reports bluish discoloration of hand/feet, Reports edema, Reports lightheadedness and Reports dyspnea on exertion Respiratory Reports cough and Reports dyspnea on exertion Gastrointestinal Reports dysphagia, Reports early satiety and Reports dyspepsia Genitourinary Reports urinary incontinence Musculoskeletal Reports abnormal gait (bedbound), Reports myalgias, Reports atrophy, Reports deformity, Reports arthralgias, Reports limited range of motion, Reports muscle weakness and Reports stiffness Integumentary/Breasts Reports bleeding lesions and Reports changing lesions Neurologic Reports abnormal movements, Reports abnormal speech, Reports abnormal gait (bedbound), Reports lack of coordination, Reports focal weakness, Reports memory loss (mild), Reports paresthesias and Reports weakness Psychiatric Reports memory loss (mild) Endocrine Reports cold intolerance Hematologic/Lymphatic Reports easy bleeding (from her mouth) [facility] Medical History Gastrostomy tube dependent (Acute) Oral mucosal lesion (Acute) Fever (Acute) 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) Ambulatory dysfunction (Chronic) Recurrent aspiration events (Chronic) Failure to thrive (Chronic) Seizure (Resolved) NMS (neuroleptic malignant syndrome) (Resolved) Abnormal EKG (Resolved) Hyperlipidemia type III (Chronic) Essential hypertension (Chronic) Anemia (Chronic) History of DIC syndrome (Resolved) Toxic metabolic encephalopathy (Resolved) UTI (urinary tract infection) (Resolved) Dysphagia (Chronic) Encephalopathy acute (Resolved) Fall (Chronic) Acute respiratory failure with hypoxia (Resolved) Pneumonia (Resolved) Anemia (Chronic) Acute kidney injury (Resolved) Parkinsons disease (Chronic) Secondary rhabdomyolysis (Resolved) Non-ST elevation [place] (NSTEMI) (Resolved) Essential hypertension (Chronic) Hyperlipidemia (Chronic) Obesity (Chronic) Osteoarthritis (Chronic) Parkinson's disease (Chronic) PEG (percutaneous endoscopic gastrostomy) adjustment/replacement/removal (Resolved) Surgical History History of vaginal hysterectomy (Resolved) Family History Mother AMI (acute myocardial infarction) Father AMI (acute myocardial infarction) Social History caregiver/support person: Yes household members: other details: lives in a SNF at [facility] housing: [facility] marital status: lives independently: No number of children: 2 number of grandchildren: 1 [employer]: Yes current occupational status: disabled diet: other caffeine: No eating out: rarely or never Smoking/Tobacco Use Status: Never alcohol intake: never substance use type: does not use Exam Const General: comfortable, frail appearing and ill appearing Nutritional Appearance: cachectic and underweight Orientation: alert, awake, oriented to person and oriented to place Limitations: physical limitations (contractures, very weak ) [facility] Head: normocephalic and atraumatic Ears: hearing grossly normal bilaterally General nose exam: external nose normal Mouth: lip normal Eyes Conjunctivae: conjunctivae normal Sclera: sclerae normal Neck Neck: no lymphadenopathy Resp Effort & Inspection: normal respiratory effort and able to speak in complete sentences (but short sentences and very weak voice) Auscultation: clear to auscultation bilaterally and diminished lung sounds Cardio Jugular venous pressure: no JVD Rate: regular rate Rhythm: regular rhythm Heart Sounds: S1 normal and S2 normal GI Inspection: other (feeding tube in place, insertion site not infected) Palpation: firm Auscultation: normal bowel sounds Skin General skin exam: pallor Lesions: no lesions Rashes: no rashes Trauma: no lacerations or abrasions Hair: normal Neuro General: alert and awake Cognition: normal cognition Speech: abnormal speech (limited due to generalized weakness, no force to her speech) Gait: gait assisted (was bedbound when I saw her) Method: wheelchair bound Motor: movement abnormality noted, muscle tone abnormal and strength abnormal Extrem General: dysmorphic and muscle atrophy Psych Appearance: well kempt Speech and Movement: delayed speech and slowed movement Mood: dysthymic mood Affect: sad and dysphoric affect Attitude: cooperative Thought Process: impoverished Insight: fair Judgment: fair Results Last Vital Signs Temp 98.2 F 05/08/18 05:57 Pulse 59 L 05/08/18 09:01 Resp 32 H 05/08/18 09:01 BP 159/49 H 05/08/18 09:01 Pulse Ox 93 L 05/08/18 09:01 Labs : 05/07/18 08:45 05/07/18 08:45
--- NOTE | 2018-05-08 12:04 | PCNE_ITS ---
Date of service: 05/08/18 Time of Service: 09:47 History of Present Illness Chief Complaint: genetic variant Parkinson's Disease; COLST form; [facility] Narrative: I last saw Jaylyn at [facility] on 08/26/2017. At that time, we reviewed and filled out a COLST form. Since then, however, her health has taken a dramatic turn for the worse. She has had 11 ER visits in 2018 and 7 admissions, all since September. [place] [facility] [place] She has been in the ICU frequently. Her former COLST form indicated aggressive interventions. She wanted to be on a vent for 5-6 months. She wanted a trial of a feeding tube for 5-6 months. Note that one was inserted by Dr. Banegas in 02/06. Despite this intervention, Jaylyn has continued to lose weight. Today she weighed 103 lbs/47 kg. I spoke to Dr. Krystal Masters (Dr. Barrientos)who is the medical billing service of the SNF where Jaylyn lives. She reported that Jaylyn weighed 130 lbs in December. The [facility] EMR shows that she weighed 142 at the end of September. Her rate of weight loss is accelerating despite the feeding tube. Jaylyn noted spontaneously that The feeding tube isn't working. After I talked to Dr. Leyva, I spoke to Dr. Canseco who reported a large oozing oral lesion on the roof of Jaylyn's mouth. He had yet to discuss how aggressive Jaylyn wanted to be in the work-up of the lesion. She and I did not discuss this finding. It is possible that she has a malignancy causing her weight loss, that her weight loss is not just due to her rare genetic variant Parkinson's disease. She was alert enough at my visit, in the ICU, that we could discuss how her health has changed over the last 8 months, since I saw her last. She recognizes that she is getting sicker, weaker, more tired. She doesn't like having been hospitalized so often. She wants to stay at Rehab. She considers it her home. She would like to go back as soon as Dr. Canseco releases her. She was open to changing her code status after a discussion of what a code entails for someone whose health is as poor as Asiyas is. We discussed ribs breaking and in her case, with her weakness, her inability to come off a ventilator. Given this, she opted to change her status to DNR/DNI. Note that we did try to reach her brother Carlos Alberto Osman. Dr. Nobles has been working with Carlos Alberto about the possibility of his taking on full guardianship, if and when it is necessary. He does not want to do this yet. Jaylyn is still able to make her own medical decisions. Consults Consult date: 05/08/18 Requesting physician: Josh Jo Assessment and Plan (1) Gastrostomy tube dependent: Current visit: Yes Status: Acute Still losing weight despite feeding tube x 3 months. Still having aspiration pneumonias. Discussed with Jaylyn and her doctor, Dr. Nobles at [facility] and . Plan is to remove feeding tube in May, after the holidays, after a trial of eating on her own. Tube is not working in keeping weight on or preventing aspiration pneumonias. Given this, and her desire to eat, let her eat. (2) Parkinsons disease: Current visit: Yes Status: Chronic Severe, end-stage, non-ambulatory. Lots of contractures. Unusual form--genetic defect. Demenita associated with her PD is still mild. Still able to make her own decisions, but given the usual course of the disease, will lose this ability within the next year or so. Essential to make decisions now. (3) Dysphagia: Current visit: No Status: Chronic Due to her chronic disease. Qualifiers: Dysphagia type: unspecified Qualified Code(s): R13.10 - Dysphagia, unspecified (4) Recurrent aspiration events: Current visit: No Status: Chronic Multiple admission for aspiration pneumonias, even after feeding tube. Still would like to be transferred and given antibiotics for comfort as of this time. (5) Failure to thrive: Current visit: No Status: Chronic This year has shown a DRAMATIC decline in Asiyas health. She is clearly eligible for hospice. Dr. Nobles agrees. Will revisit removing feeding tube and coming on hospice after the new year. Did not reach her brother who is her DPOA. He needs to be included in the discussion. Qualifiers: Failure to thrive age range: in adult Qualified Code(s): R62.7 - Adult failure to thrive (6) Unintentional weight loss of 10% body weight within 6 months: Current visit: Yes Status: Acute No further interventions to help. Loss may be due to an as of yet undiagnosed oral cancer. Dr Canseco will discuss getting CT scan of head and neck. Unlikely that she will be able to tolerate any treatment IF it is cancer, but imaging would let patient and family know what was going on. (7) Goals of care, counseling/discussion: Current visit: Yes Status: Acute Redid her COLST form. Shredded her old form. Now DNR/DNI, but still wants transfer, IV abx, IVF, and limited care. Would like to return to [facility] as soon as Dr. Canseco allows her to. Not that Certified Medical Records Coder Kecia Lopez was present during COLST discussion and signing. Review of Systems Constitutional Reports daytime sleepiness, Reports fever(s), Reports lethargy, Reports malaise, Reports poor appetite, Reports weakness and Reports weight loss Eyes Reports requires corrective lenses ENT Reports bleeding gums, Reports halitosis, Reports dysphagia, Reports dry mouth and Reports mouth lesions Comments: mass hard palate Cardiovascular Reports bluish discoloration of hand/feet, Reports edema, Reports lightheadedness and Reports dyspnea on exertion Respiratory Reports cough and Reports dyspnea on exertion Gastrointestinal Reports dysphagia, Reports early satiety and Reports dyspepsia Genitourinary Reports urinary incontinence Musculoskeletal Reports abnormal gait (bedbound), Reports myalgias, Reports atrophy, Reports deformity, Reports arthralgias, Reports limited range of motion, Reports muscle weakness and Reports stiffness Integumentary/Breasts Reports bleeding lesions and Reports changing lesions Neurologic Reports abnormal movements, Reports abnormal speech, Reports abnormal gait (bedbound), Reports lack of coordination, Reports focal weakness, Reports memory loss (mild), Reports paresthesias and Reports weakness Psychiatric Reports memory loss (mild) Endocrine Reports cold intolerance Hematologic/Lymphatic Reports easy bleeding (from her mouth) [facility] Medical History Gastrostomy tube dependent (Acute) Oral mucosal lesion (Acute) Fever (Acute) 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) Ambulatory dysfunction (Chronic) Recurrent aspiration events (Chronic) Failure to thrive (Chronic) Seizure (Resolved) NMS (neuroleptic malignant syndrome) (Resolved) Abnormal EKG (Resolved) Hyperlipidemia type III (Chronic) Essential hypertension (Chronic) Anemia (Chronic) History of DIC syndrome (Resolved) Toxic metabolic encephalopathy (Resolved) UTI (urinary tract infection) (Resolved) Dysphagia (Chronic) Encephalopathy acute (Resolved) Fall (Chronic) Acute respiratory failure with hypoxia (Resolved) Pneumonia (Resolved) Anemia (Chronic) Acute kidney injury (Resolved) Parkinsons disease (Chronic) Secondary rhabdomyolysis (Resolved) Non-ST elevation ME (NSTEMI) (Resolved) Essential hypertension (Chronic) Hyperlipidemia (Chronic) Obesity (Chronic) Osteoarthritis (Chronic) Parkinson's disease (Chronic) PEG (percutaneous endoscopic gastrostomy) adjustment/replacement/removal (Resolved) Surgical History History of vaginal hysterectomy (Resolved) Family History Mother AMI (acute myocardial infarction) Father AMI (acute myocardial infarction) Social History caregiver/support person: Yes household members: other details: lives in a SNF at [facility] housing: snf marital status: lives independently: No number of children: 2 number of grandchildren: 1 snf: Yes current occupational status: disabled diet: other caffeine: No eating out: rarely or never Smoking/Tobacco Use Status: Never alcohol intake: never substance use type: does not use Exam Const General: comfortable, frail appearing and ill appearing Nutritional Appearance: cachectic and underweight Orientation: alert, awake, oriented to person and oriented to place Limitations: physical limitations (contractures, very weak ) [facility] Head: normocephalic and atraumatic Ears: hearing grossly normal bilaterally General nose exam: external nose normal Mouth: lip normal Eyes Conjunctivae: conjunctivae normal Sclera: sclerae normal Neck Neck: no lymphadenopathy Resp Effort & Inspection: normal respiratory effort and able to speak in complete sentences (but short sentences and very weak voice) Auscultation: clear to auscultation bilaterally and diminished lung sounds Cardio Jugular venous pressure: no JVD Rate: regular rate Rhythm: regular rhythm Heart Sounds: S1 normal and S2 normal GI Inspection: other (feeding tube in place, insertion site not infected) Palpation: firm Auscultation: normal bowel sounds Skin General skin exam: pallor Lesions: no lesions Rashes: no rashes Trauma: no lacerations or abrasions Hair: normal Neuro General: alert and awake Cognition: normal cognition Speech: abnormal speech (limited due to generalized weakness, no force to her speech) Gait: gait assisted (was bedbound when I saw her) Method: wheelchair bound Motor: movement abnormality noted, muscle tone abnormal and strength abnormal Extrem General: dysmorphic and muscle atrophy Psych Appearance: well kempt Speech and Movement: delayed speech and slowed movement Mood: dysthymic mood Affect: sad and dysphoric affect Attitude: cooperative Thought Process: impoverished Insight: fair Judgment: fair Results Last Vital Signs Temp 98.2 F 05/08/18 05:57 Pulse 59 L 05/08/18 09:01 Resp 32 H 05/08/18 09:01 BP 159/49 H 05/08/18 09:01 Pulse Ox 93 L 05/08/18 09:01 Labs : 05/07/18 08:45 05/07/18 08:45
--- NOTE | 2018-05-08 12:17 | W.PM.PROGNOT ---
Date of Service Date of service: 05/08/18 Time of Service: 10:00 Assessment and Plan (1) Fever: Current visit: Yes Status: Acute Temperature down overnight. Unclear if this is related to antibiotics or coincidental. No cultures growing pathogens at this point. No localizing infection on exam. Possible aspiration event causing transient temperature elevation? Possible autonomic instability related to her chromosomal/neurodegenerative disorder? Continue antibiotics while awaiting results of blood cultures. If nothing develops in terms of positive culture or localizing signs or symptoms regarding infection I would plan on discontinuing antibiotics after 48 hours. (2) Oral mucosal lesion: Current visit: Yes Status: Acute Adherent lesion on the right hard palate asymptomatic. She is awake during my conversation with her today regarding workup of this and she makes an informed choice against pursuing any diagnostic studies. She reserves the ability to change her mind should she develop symptoms. (3) Parkinsons disease: Current visit: Yes Status: Chronic Progressive loss of functional abilities. Probable transition to hospice services after the first of the year. No change in medication management planned at this time. (4) Gastrostomy tube dependent: Current visit: Yes Status: Acute Per conversation with Dr. Garcia, may be discontinuing tube feedings after the first of the year. I discussed with her whether or not she wants to stop tube feedings now. She states that she wants to take food by mouth. I did not present this is an option stating that she can discuss this with the staff when she goes back to health and rehab but needs to recognize that it may lead to recurrent aspiration and pneumonia and probably needs to decide whether or not she does not wish to return to the hospital for acute treatment of pneumonia before resuming any oral foods. For now I am continuing tube feedings but given the difference in volume and caloric density have increased it to 5 feedings per day, with the same outpatient dosing of free water, 300 cc 4 times daily. (5) Essential hypertension: Current visit: Yes Status: Chronic Blood pressure is marginally acceptable on current propranolol dose, no change yet in the dosing. (6) Discharge planning issues: Current visit: Yes Status: Acute Anticipate return back to health and rehab when medically stable, possibly entering hospice services in the new year. Dr. Garcia discussed with her end of preferences and has changed CODE STATUS to DNR/DNI after this conversation. Subjective Interval history since last seen: Initially quite sedated this morning, Ms. So is much more alert midday and is able to participate in decisions regarding her medical care. She defervesced overnight. She has no positive cultures thus far. She has had significant upper airway sounds but no major secretions. Her blood pressures have been trending down, but still a bit high systolic. Pulse rate is been in the 50s-60s with no dysrhythmias on monitor. She has not had any significant oxygen desaturations on nasal cannula oxygen. She denies pain, particularly denies discomfort in her throat or on the palate where she has an adherent lesion. She again had some dried blood on her lips this morning. She has an ineffective cough. She states that she wants to eat food by mouth rather than have tube feedings. I discussed with her the workup for the lesion on her palate noted on admission. This would involve ENT consultation with an office visit, possible biopsy which may require sedation. Discussed the possibility of getting a CT scan of head and neck. She denies any disc from this and is completely unaware of the presence of this lesion. She indicates to me and also to her brother who is in the room that she does not wish to pursue any diagnostic studies at this time. Exam Narrative Exam Narrative: Initially sedated this morning much more alert midday. Pupils are equal and reactive. She opens her mouth voluntarily, edentulous, there is brown adherent material on the posterior gingival area of the hard palate on the maxillary right region, scattered diffuse erythema of the soft palate, tongue is somewhat dry. No cervical adenopathy or supraclavicular adenopathy. Lungs have diminished breath sounds right more than left base, clear in the upper lung salter no rub and I do not hear any crackles or wheezing. No heart murmur S3 or S4. Gastrostomy tube in the mid abdomen with no erythema or discharge. Bowel sounds present but little quiet. No abdominal masses no tenderness. Extremities warm with good distal pulses no petechiae no edema. Objective Objective Clinical Data: Vital Signs Temperature 36.8 C 05/08/18 05:57 Temperature Source Temporal Artery Scan 05/08/18 05:57 Pulse 59 L 05/08/18 09:01 Pulse Rhythm Regular 05/07/18 12:00 Pulse 55 L 05/08/18 08:01 Respiratory Rate 32 H 05/08/18 09:01 Respiratory Effort 05/08/18 05:57 Respiratory Depth Normal 05/08/18 05:57 Respiratory Pattern Normal 05/08/18 05:57 Blood Pressure 159/49 H 05/08/18 09:01 Blood Pressure Mean 73 05/08/18 09:01 Blood Pressure Position Supine 05/08/18 05:57 Pulse Oximetry 93 L 05/08/18 09:01 Oxygen Delivery Method Nasal Cannula 05/08/18 07:31 Oxygen Flow Rate 3 05/08/18 07:31 Pain Level 0 05/08/18 01:35 Comment 05/07/18 08:50 Intake & Output 05/07/18 05/08/18 05/08/18 23:59 11:59 23:59 Intake Total 850 / 850 1820 / 1820 Output Total 625 / 625 550 / 550 Balance 225 / 225 1270 / 1270 Weight 47 kg 54.8 kg Intake: IV 850 / 850 1570 / 1570 Oral 250 / 250 Output: Urine 625 / 625 550 / 550 Other: Urine Color Yellow Yellow Urine Appearance Clear Clear Comment Mccall in place. Mccall in place. Laboratory Results WBC 13.34 k/cumm (4.4-10.8) H 05/07/18 08:45 RBC 3.27 m/cumm (4.00-5.20) L 05/07/18 08:45 Hgb 10.2 g/dL (12.0-15.5) L 05/07/18 08:45 Hct 31.6 % (36.0-46.0) L 05/07/18 08:45 MCV 96.6 fL (80-95) H 05/07/18 08:45 MCH 31.2 pg (27.0-33.0) 05/07/18 08:45 MCHC 32.3 g/dL (32.0-36.0) 05/07/18 08:45 RDW 14.9 % (11.7-14.6) H 05/07/18 08:45 Plt Count 270 x1000/uL (130-400) 05/07/18 08:45 MPV 10.6 fL (8.0-11.0) 05/07/18 08:45 Immature Gran % 0.5 05/07/18 08:45 Neutrophils % 83.6 05/07/18 08:45 Lymphocytes % 7.0 05/07/18 08:45 Monocytes % 8.5 05/07/18 08:45 Eosinophils % 0.0 05/07/18 08:45 Basophils % 0.4 05/07/18 08:45 Absolute Neutrophils 11.15 k/cumm (1.2-6.7) H 05/07/18 08:45 Absolute Lymphocytes 0.93 k/cumm (1.2-3.4) L 05/07/18 08:45 Absolute Monocytes 1.13 k/cumm (0.11-0.7) H 05/07/18 08:45 Absolute Eosinophils 0.00 k/cumm (0.0-0.7) 05/07/18 08:45 Absolute Basophils 0.05 k/cumm (0.0-0.2) 05/07/18 08:45 Sodium 143 mmol/L (136-145) 05/07/18 08:45 Potassium 4.3 mmol/L (3.5-5.1) 05/07/18 08:45 Chloride 103 mmol/L (98-107) 05/07/18 08:45 Carbon Dioxide 29.7 mmol/L (21.0-32.0) 05/07/18 08:45 Anion Gap 10.3 mmol/L (3-11) 05/07/18 08:45 BUN 41 mg/dL (7-18) H 05/07/18 08:45 Creatinine 0.86 mg/dL (0.55-1.02) 05/07/18 08:45 Estimated GFR/1.73 m2 >= 60.00 (mL/min/1.73m2) 05/07/18 08:45 Glucose 144 mg/dL (70-100) H 05/07/18 08:45 Lactate 1.1 mmol/L (0.6-1.4) 05/07/18 08:45 Calcium 9.7 mg/dL (8.5-10.1) 05/07/18 08:45 Total Bilirubin 0.5 mg/dL (0.2-1.0) 05/07/18 08:45 AST 26 U/L (15-37) 05/07/18 08:45 ALT 14 U/L (12-78) 05/07/18 08:45 Alkaline Phosphatase 98 U/L (46-116) 05/07/18 08:45 Troponin I 0.03 ng/mL (0.00-0.06) 05/07/18 08:45 Total Protein 7.8 g/dL (6.4-8.2) 05/07/18 08:45 Albumin 3.5 g/dL (3.4-5.0) 05/07/18 08:45 Urine Color Yellow (Yellow) 05/07/18 10:35 Urine Clarity Clear 05/07/18 10:35 Urine pH 5.5 (5-8) 05/07/18 10:35 Ur Specific [place] 1.025 (1.005-1.025) 05/07/18 10:35 Urine Protein 30 mg/dL (Negative) H 05/07/18 10:35 Urine Ketones Negative mg/dL (Negative) 05/07/18 10:35 Urine Blood Trace-intact (Negative) H 05/07/18 10:35 Urine Nitrite Negative (Negative) 05/07/18 10:35 Urine Bilirubin Negative (Negative) 05/07/18 10:35 Urine Urobilinogen 0.2 EU/dL (Up TO 0.2) 05/07/18 10:35 Ur Leukocyte Esterase Negative (Negative) 05/07/18 10:35 Urine RBC 3-5 (0-2) H 05/07/18 10:35 Urine WBC 10-20 HPF (0-5) 05/07/18 10:35 Ur Epithelial Cells Few HPF (Negative) 05/07/18 10:35 Urine Crystals Rare calcium oxalate HPF (Negative) 05/07/18 10:35 Urine Bacteria Few HPF (Negative) 05/07/18 10:35 Urine Casts Comment LPF (Negative) 05/07/18 10:35 Urine Mucus Moderate (Negative) 05/07/18 10:35 Urine Other Few renal (Negative) 05/07/18 10:35 Ur Culture Indicated? Yes 05/07/18 10:35 Urine Glucose Negative mg/dL (Negative) 05/07/18 10:35
--- NOTE | 2018-05-08 12:46 | INITIAL_ITS ---
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 Ambulatory dysfunction (Chronic). Recurrent aspiration events (Chronic). Failure to thrive (Chronic). Seizure (Resolved). NMS (neuroleptic malignant syndrome) (Resolved). Abnormal EKG (Resolved). Hyperlipidemia type III (Chronic). Anemia (Chronic). History of DIC syndrome (Resolved). Toxic metabolic encephalopathy (Resolved). UTI (urinary tract infection) (Resolved). Dysphagia (Chronic). Encephalopathy acute (Resolved). Fall (Chronic). Acute respiratory failure with hypoxia (Resolved). Pneumonia (Resolved). Anemia (Chronic). Acute kidney injury (Resolved). Parkinsons disease (Chronic). Secondary rhabdomyolysis (Resolved). Non-ST elevation NV (NSTEMI) (Resolved). Essential hypertension (Chronic). Hyperlipidemia (Chronic). Obesity (Chronic). Osteoarthritis (Chronic). Parkinson's disease (Chronic). PEG (percutaneous endoscopic gastrostomy) adjustment/replacement/removal (Resolved). History of vaginal hysterectomy (Resolved) PREVIOUS FUNCTIONAL STATUS/SOCIAL/FAMILY SUPPORTS:: Jaylyn resides at [facility]. She has family whom reside locally and are supportive. CM spoke with Jaylyn's brother Carlos Alberto this morning after the Palliative Care Consult with Dr. Garcia to discuss Jaylyn's change in code status. CURRENT FUNCTIONAL STATUS:: Jaylyn is lying in bed this morning. She is difficult to understand, however she is able to verbalize her wishes this morning. ADVANCE DIRECTIVES:: On file - Dr. Garcia met with Jaylyn this morning and a new COLST was completed. Jaylyn is DNR/DNI at this time. CM faxed new COLST to [facility] as well as [facility] for scanning. CM also placed a copy of the updated COLST on the front of the physical chart. Has patient been provided with information about the portal?: No Did the patient sign up for the portal?: No CODE STATUS:: Full Code INSURANCE COVERAGE / FINANCIAL ISSUES:: Medicare, Medicaid CURRENT HOME/COMMUNITY SERVICES/EQUIPMENT:: Currently Jaylyn receives all services and equipment needs at [facility] PRIMARY CARE PHYSICIAN:: Barbara Rosina POTENTIAL DISCHARGE NEEDS:: Return to [facility]& via w/c van vs. ambulance PATIENT/FAMILY EDUCATION NEEDS:: Review DC instructions, any limitations, and o ngoing DC planning discussion. Discuss 'Ask Me Three' ANTICIPATED BARRIERS TO DISCHARGE:: None identified at this time. TRANSPORTATION:: Via w/c van vs. ambulance PLAN:: Jaylyn will return to [facility]& once medically cleared, she will be transported via w/c van vs. ambulance when ready.
[2018-05-08] MEDS: POTASSIUM CHLORIDE/D5-0.45NACL 1,000 ML 100 MEQ IV (13:18)
[2018-05-08] MEDS: Enoxaparin 40 MG/0.4 ML SYR SC (13:47)
--- NOTE | 2018-05-08 17:18 | NUR.NOTE ---
05/08/18 1455 Pt brought out of ICU on bed, seizure pads in place. Pt alert and oriented. Hr regular, ls diminished bilat posterior bases. Positive bs x 4. Peg tube in place. Red blanchable area on coccyx. Foot drop ble. Bilat arms contracted at elbow. Pupis 3 mm and reactive. Pt denies pain/ SOB at this time.
[2018-05-08] MEDS: Acetaminophen 325 MG TAB 650 MG NG (18:28)
[2018-05-08] MEDS: LORazepam 0.5 MG TAB NG (21:16)
[2018-05-09] VITALS (10 sets, daily range): BP systolic 117–137; BP diastolic 63–97; PULSE 64–75; RESP 1–23; TEMP 36–37.2; O2SAT 95–99
[2018-05-09] MEDS: VANCOMYCIN 750 MG in Normal Saline 250 ML 250 MG IVPB (02:21)
[2018-05-09] MEDS: POTASSIUM CHLORIDE/D5-0.45NACL 1,000 ML 100 MEQ IV (03:23)
[2018-05-09] MEDS: Albuterol/Ipratropium 3 ML UPD VIAL IH ×6 (04:00→20:08)
[2018-05-09 06:55] LABS: HGB 9.9 g/dL (12.0-15.5); Mean Corp. HGB Concentration 30.9 g/dL (32.0-36.0); Mean Corpuscular Hemoglobin 30.1 pg (27.0-33.0); Mean Corpuscular Volume 97.3 fL (80-95); Mean Platelet Volume 10.6 fL (8.0-11.0); Platelet Count 200 x1000/uL (130-400); RBC 3.29 m/cumm (4.00-5.20); RBC Distribution Width 14.4 % (11.7-14.6); White Blood Cell Count 6.37 k/cumm (4.4-10.8)
[2018-05-09] MEDS: CEFEPIME 2 GM in Normal Saline 100 ML IVPB ×2 (08:12→20:27)
[2018-05-09] MEDS: Nystatin 500000 UNITS/5 ML SUSP 5ML CUP PO ×3 (08:15→20:11)
[2018-05-09] MEDS: Propranolol 20 MG TAB 40 MG NG ×2 (08:15→20:11)
[2018-05-09] MEDS: FLUoxetine 20 MG CAP NG (08:16)
[2018-05-09] MEDS: rOPINIRole 0.5 MG TAB 0.25 MG NG ×3 (08:16→20:10)
[2018-05-09] MEDS: Omeprazole 20 MG CAPCR NG (08:17)
--- NOTE | 2018-05-09 10:40 | DI.RAD_ITS ---
SYMPTOMS/DIAGNOSIS: CONTINUED CRACKLES AND WHEEZING, ASPIRATION RISK AP AND LATERAL CHEST: Pulmonary hyperinflation is demonstrated. A density is noted projected over the posterior portion of the lung probably in the left lower lobe which could represent atelectasis or infiltration. The lungs are otherwise clear. There is no definite pleural effusion. The heart is not enlarged. The hilar structures, mediastinum and tracheal air column are intact. SUMMARY: A region of increased density is projected over the posterior portion of the lung on the lateral projection. This region is clearly seen and could lie either in the right lower lobe or left lower lobe posteriorly. The findings would be consistent with an acute pneumonitis.
--- NOTE | 2018-05-09 11:23 | W.PM.PROGNOT ---
Date of Service Date of service: 05/09/18 Time of Service: 11:31 Assessment and Plan (1) Fever: Current visit: Yes Status: Acute Patient has defervesced although still has lung findings and normal chest x-ray as well as an equivocal urine culture. This may all be related to an isolated aspiration event, pneumonia and/or UTI, and/or autonomic instability from her underlying neurologic disorder. I am presuming this is infectious and will treat as noted below (2) UTI (urinary tract infection) due to Enterococcus: Current visit: Yes Status: Acute Evidence for UTI is equivocal at best. Her initial urinalysis was contaminated, subsequent also had epithelial cells and no nitrites or leukocyte esterase but her culture prior to this admission and again on this admission is growing Enterococcus faecium although not at a high colony count. I would expect to have seen more pyuria if this was the cause of her very high temperature elevation on presentation. Nevertheless I am going to continue empiric treatment. (3) Healthcare-associated pneumonia: Current visit: Yes Status: Acute New x-ray findings compared to admission film although only a portable film on presentation. With her right-sided lung findings I am presuming this is indeed healthcare associated pneumonia and continuing broad-spectrum antibiotics and follow clinically. Does not have any oxygen requirement is now afebrile. (4) Oral mucosal lesion: Current visit: Yes Status: Acute Less discharge from the lesion noted today although still present and there seems to be ulceration on the hard palate which makes me less inclined to think this is simply thrush. We will continue oral being with nystatin. (5) Parkinsons disease: Current visit: Yes Status: Chronic No change in status or medications. (6) Gastrostomy tube dependent: Current visit: Yes Status: Acute Tolerating tube feeds without abdominal distention or diarrhea. Continue to monitor with current regimen. (7) Essential hypertension: Current visit: Yes Status: Chronic Blood pressure is better today, follow on current dose of propranolol (8) Discharge planning issues: Current visit: Yes Status: Acute Anticipate return back to health and rehab when medically stable, possibly entering hospice services in the new year. Dr. Garcia discussed with her end of preferences and has changed CODE STATUS to DNR/DNI after this conversation. Subjective Interval history since last seen: No fever overnight. Successfully weaned off oxygen. However has a loose cough. Continues to deny any discomfort from the lesion in her mouth. Denies shortness of breath or chest discomfort, denies abdominal discomfort. Tube feedings have been started, thus far no indication of intolerance. No irritation from Mccall catheter that was placed on admission. Exam Narrative Exam Narrative: She is awake and in no respiratory distress although has some occasional cough and upper airway sounds. She does not have any crusted blood on her lips today, there is white adherent material on the hard palate, on the right maxillary area posterior aspect is an ulcer with whitish discharge on this, no bleeding. No cervical adenopathy or supraclavicular nodes. Lungs have coarse intermittent crackles and some expiratory wheezing in the right lung salter clear on the left, no rub. Regular heart rhythm without murmur S3 or S4. Nontender abdomen normal bowel sounds. No rash on the lower extremities, 1+ pulses in the feet. Less tremulous today. Objective Objective Clinical Data: Abnormal lab results 05/09/18 Range/Units 06:10 RBC 3.29 L (4.00-5.20) m/cumm Hgb 9.9 L (12.0-15.5) g/dL Hct 32.0 L (36.0-46.0) % MCV 97.3 H (80-95) fL MCHC 30.9 L (32.0-36.0) g/dL Vital Signs Temperature 36 C L 05/09/18 07:20 Temperature Source Tympanic 05/09/18 07:20 Pulse 67 05/09/18 07:20 Pulse Rhythm Regular 05/09/18 08:40 Pulse 59 L 05/08/18 12:01 Respiratory Rate 18 05/09/18 07:20 Respiratory Effort 05/09/18 08:40 Respiratory Depth Normal 05/09/18 08:40 Respiratory Pattern Normal 05/09/18 08:40 Blood Pressure 137/81 05/09/18 07:20 Blood Pressure Mean 74 05/08/18 13:51 Blood Pressure Position Left Lateral 05/08/18 09:00 Pulse Oximetry 97 05/09/18 08:30 Oxygen Delivery Method Room Air 05/09/18 08:30 Oxygen Flow Rate 0 05/09/18 08:30 Pain Level 0 05/08/18 15:00 Comment 05/08/18 17:47 Intake & Output 12/18/18 12/18/18 12/19/18 11:59 23:59 11:59 Intake Total 1920 / 4545 2625 / 4545 830 / 830 Output Total 550 / 2515 1965 / 2515 2500 / 2500 Balance 137 / 2030 660 / 2030 -1670 / -1670 Weight 54.8 kg 53.4 kg Intake: IV 1670 / 3815 2145 / 3815 350 / 350 Oral 250 / 250 Intake, Tube Feeding Amount 480 / 480 480 / 480 Output: Gastric Drainage 490 / 490 Lt Upper Quadrant 490 / 490 Urine 550 / 5 147 / 2024 2500 / 2500 Other: Urine Color Yellow Yellow Pale Yellow Urine Appearance Clear Clear Clear Comment Mccall intact and draining well. Mccall intact and draining well. will receive full skin care later in the shift Stool Size Moderate Moderate Stool Characteristics Soft Soft Formed Brown Laboratory Results WBC 6.37 k/cumm (4.4-10.8) 05/09/18 06:10 RBC 3.29 m/cumm (4.00-5.20) L 05/09/18 06:10 Hgb 9.9 g/dL (12.0-15.5) L 05/09/18 06:10 Hct 32.0 % (36.0-46.0) L 05/09/18 06:10 MCV 97.3 fL (80-95) H 05/09/18 06:10 MCH 30.1 pg (27.0-33.0) 05/09/18 06:10 MCHC 30.9 g/dL (32.0-36.0) L 05/09/18 06:10 RDW 14.4 % (11.7-14.6) 05/09/18 06:10 Plt Count 200 x1000/uL (130-400) 05/09/18 06:10 MPV 10.6 fL (8.0-11.0) 05/09/18 06:10 Immature Gran % 0.5 05/07/18 08:45 Neutrophils % 83.6 05/07/18 08:45 Lymphocytes % 7.0 05/07/18 08:45 Monocytes % 8.5 05/07/18 08:45 Eosinophils % 0.0 05/07/18 08:45 Basophils % 0.4 05/07/18 08:45 Absolute Neutrophils 11.15 k/cumm (1.2-6.7) H 05/07/18 08:45 Absolute Lymphocytes 0.93 k/cumm (1.2-3.4) L 05/07/18 08:45 Absolute Monocytes 1.13 k/cumm (0.11-0.7) H 05/07/18 08:45 Absolute Eosinophils 0.00 k/cumm (0.0-0.7) 05/07/18 08:45 Absolute Basophils 0.05 k/cumm (0.0-0.2) 05/07/18 08:45 Sodium 143 mmol/L (136-145) 05/07/18 08:45 Potassium 4.3 mmol/L (3.5-5.1) 05/07/18 08:45 Chloride 103 mmol/L (98-107) 05/07/18 08:45 Carbon Dioxide 29.7 mmol/L (21.0-32.0) 05/07/18 08:45 Anion Gap 10.3 mmol/L (3-11) 05/07/18 08:45 BUN 41 mg/dL (7-18) H 05/07/18 08:45 Creatinine 0.86 mg/dL (0.55-1.02) 05/07/18 08:45 Estimated GFR/1.73 m2 >= 60.00 (mL/min/1.73m2) 05/07/18 08:45 Glucose 144 mg/dL (70-100) H 05/07/18 08:45 Lactate 1.1 mmol/L (0.6-1.4) 05/07/18 08:45 Calcium 9.7 mg/dL (8.5-10.1) 05/07/18 08:45 Total Bilirubin 0.5 mg/dL (0.2-1.0) 05/07/18 08:45 AST 26 U/L (15-37) 05/07/18 08:45 ALT 14 U/L (12-78) 05/07/18 08:45 Alkaline Phosphatase 98 U/L (46-116) 05/07/18 08:45 Troponin I 0.03 ng/mL (0.00-0.06) 05/07/18 08:45 Total Protein 7.8 g/dL (6.4-8.2) 05/07/18 08:45 Albumin 3.5 g/dL (3.4-5.0) 05/07/18 08:45 Urine Color Yellow (Yellow) 05/07/18 10:35 Urine Clarity Clear 05/07/18 10:35 Urine pH 5.5 (5-8) 05/07/18 10:35 Ur Specific [place] 1.025 (1.005-1.025) 05/07/18 10:35 Urine Protein 30 mg/dL (Negative) H 05/07/18 10:35 Urine Ketones Negative mg/dL (Negative) 05/07/18 10:35 Urine Blood Trace-intact (Negative) H 05/07/18 10:35 Urine Nitrite Negative (Negative) 05/07/18 10:35 Urine Bilirubin Negative (Negative) 05/07/18 10:35 Urine Urobilinogen 0.2 EU/dL (Up TO 0.2) 05/07/18 10:35 Ur Leukocyte Esterase Negative (Negative) 05/07/18 10:35 Urine RBC 3-5 (0-2) H 05/07/18 10:35 Urine WBC 10-20 HPF (0-5) 05/07/18 10:35 Ur Epithelial Cells Few HPF (Negative) 05/07/18 10:35 Urine Crystals Rare calcium oxalate HPF (Negative) 05/07/18 10:35 Urine Bacteria Few HPF (Negative) 05/07/18 10:35 Urine Casts Comment LPF (Negative) 05/07/18 10:35 Urine Mucus Moderate (Negative) 05/07/18 10:35 Urine Other Few renal (Negative) 05/07/18 10:35 Ur Culture Indicated? Yes 05/07/18 10:35 Urine Glucose Negative mg/dL (Negative) 05/07/18 10:35 Vancomycin Trough Cancelled 05/08/18 17:00 Chest x-ray shows blunting, seen on the lateral costophrenic angle, cannot determine left or right. Urine culture with 2 gram-positive cocci 1 of which is enterococcus few centimeter which was present on urine culture obtained about a week prior to this admission. Blood cultures have been negative.
[2018-05-09 12:10] LABS: CREATININE 0.54 mg/dL (0.55-1.02)
[2018-05-09 12:14] LABS: Vancomycin, Trough 28.4 ug/mL (10.0-20.0)
[2018-05-09] MEDS: Enoxaparin 40 MG/0.4 ML SYR SC (12:48)
--- NOTE | 2018-05-09 13:56 | PDOC.CMPRO ---
- If Service Date Differs Date of service: 05/09/18 Time of Service: 13:56 Care Management Progress Note S/O: Jaylyn is lying in bed resting when this poem writer visits this morning. Jaylyn wakes easily and engages with this poem writer in discussion. When asked how she is feeling Jaylyn states Okay. Her brother Carlos Alberto was in to visit yesterday, and will most likely not be visiting today. MEAGHAN spoke with [facility], whom states that he did receive the updated COLST form for Jaylyn. A: 53 y/o female admitted 05/08/18 with fever. P: Jaylyn will return to [facility] once medically cleared. ? transport via w/c van vs. ambulance depending on presentation.
--- NOTE | 2018-05-09 13:59 | CMPROGNOTE_ITS ---
- If Service Date Differs Date of service: 05/09/18 Time of Service: 13:56 Care Management Progress Note S/O: Jaylyn is lying in bed resting when this entry writer visits this morning. Jaylyn wakes easily and engages with this entry writer in discussion. When asked how she is feeling Jaylyn states Okay. Her brother Carlos Alberto was in to visit yesterday, and will most likely not be visiting today. MEAGHAN spoke with [facility], whom states that he did receive the updated COLST form for Jaylyn. A: 53 y/o female admitted 05/08/18 with fever. P: Jaylyn will return to [facility] once medically cleared. ? transport via w/c van vs. ambulance depending on presentation.
[2018-05-09] MEDS: VANCOMYCIN 1,000 MG in Normal Saline 250 ML 166.6666 MG IVPB (17:41)
[2018-05-09] MEDS: Normal Saline Flush 10 ML SYR IVP (20:09)
[2018-05-09] MEDS: Melatonin 3 MG TAB PO (20:11)
[2018-05-09] MEDS: Baclofen 10 MG TAB NG (20:11)
[2018-05-09] MEDS: LORazepam 0.5 MG TAB NG (20:12)
[2018-05-10] MEDS: VANCOMYCIN 1,000 MG in Normal Saline 250 ML 166 MG IVPB ×2 (06:17→17:55)
[2018-05-10] MEDS: Albuterol/Ipratropium 3 ML UPD VIAL IH ×2 (06:17→07:32)
[2018-05-10 07:29] VITALS: BP 114/64; PULSE 66; RESP 17; TEMP 36.7; O2SAT 96
[2018-05-10 07:30] VITALS: O2SAT 96
[2018-05-10] MEDS: Omeprazole 20 MG CAPCR NG (08:18)
[2018-05-10] MEDS: Propranolol 20 MG TAB 40 MG NG ×2 (08:20→19:31)
[2018-05-10] MEDS: rOPINIRole 0.5 MG TAB 0.25 MG NG ×3 (08:21→19:34)
[2018-05-10] MEDS: CEFEPIME 2 GM in Normal Saline 100 ML IVPB ×2 (08:22→19:31)
[2018-05-10] MEDS: FLUoxetine 20 MG CAP NG (08:22)
[2018-05-10] MEDS: Nystatin 500000 UNITS/5 ML SUSP 5ML CUP PO ×3 (08:22→19:32)
--- NOTE | 2018-05-10 09:35 | W.NUTCONSULT ---
Date of service: 05/10/18 Time of Service: 09:35 Nutritional Consult ASSESSMENT: Ms. So is tolerating 240 ml of Jevity 1.2 tricia bolus 5 times per day with minimal residual. This feeding provides 1440 calories and 66 grams of protein which is 26 kcal/kg/day and 1.2g/kg/day of protein respectively, which is a weight maintenance level of feeding. Her weight is 53.4 kg today which has been stable over the past month or more according to our records. Her BMI is 21.5 kg/m2 which is WNL. She takes nothing by mouth at this time. NUTRITIONAL DIAGNOSIS: Inability to take oral foods and fluids related to dysphagia. INTERVENTION: Continue with current tube feeding regimen. MONITORING AND EVALUATION: 1. Will monitor tolerance of tube feeding. Will monitor weight. Will monitor progress. 2. Will evaluate nutrition care plan ongoing and adjust as needed. Time Spent in Nutritional Counseling and Treatment: SHILPA
--- NOTE | 2018-05-10 10:02 | W.PM.PROGNOT ---
Date of Service Date of service: 05/10/18 Time of Service: 10:03 Assessment and Plan (1) Fever: Current visit: Yes Status: Acute She remains afebrile, under treatment for possible healthcare associated pneumonia and enterococcus faecium urinary tract infection. Continue current IV antibiotics with a plan to treat with parenteral antibiotics for 5 days since fever resolved, which will take her through May 12 (2) UTI (urinary tract infection) due to Enterococcus: Current visit: Yes Status: Acute Evidence for UTI is equivocal at best. Her initial urinalysis was contaminated, subsequent also had epithelial cells and no nitrites or leukocyte esterase but her culture prior to this admission and again on this admission is growing Enterococcus faecium although not at a high colony count. I would expect to have seen more pyuria if this was the cause of her very high temperature elevation on presentation. Nevertheless I am going to continue empiric treatment. (3) Healthcare-associated pneumonia: Current visit: Yes Status: Acute Remains afebrile with normal air oxygen saturations and better exam. No witnessed aspiration events since arrival here. We can back off on the scheduled duo nebs and make them as needed. Continue empiric antibiotics for 5 days since fever resolved as noted above. (4) Oral mucosal lesion: Current visit: Yes Status: Acute Exudate has reduced and the area of erosion appears to be smaller. Perhaps this is all related to thrush? Continue topical application of nystatin. (5) Parkinsons disease: Current visit: Yes Status: Chronic Stable on outpatient meds, no changes planned (6) Gastrostomy tube dependent: Current visit: Yes Status: Acute Tolerating tube feeds without abdominal distention or diarrhea. Continue to monitor with current regimen. (7) Essential hypertension: Current visit: Yes Status: Chronic Blood pressure is acceptable on current dose of propranolol (8) Discharge planning issues: Current visit: Yes Status: Acute Anticipate return back to health and rehab when medically stable, possibly entering hospice services in the new year. Dr. Garcia discussed with her end of preferences and has changed CODE STATUS to DNR/DNI after this conversation. (9) Urinary incontinence: Current visit: Yes Status: Chronic At this point no plans for any treatment of her incontinence. Close attention to skin care to prevent decubitus ulcer formation. Subjective Interval history since last seen: Jaylyn has no complaints other than dry mouth. Denies all pain in her mouth. Tolerating gastrostomy tube feedings. Mccall was pulled yesterday and she has been incontinent of urine, some minimal irritation with close attention to skin care now. No fevers overnight. Denies chest discomfort, shortness of breath, cough, chest or abdominal pain. Exam Narrative Exam Narrative: Lying in bed she is awake, no spontaneous coughing and does not appear in any respiratory distress. Room air oxygen saturation remains normal. She has been afebrile since midday on May 07. Sclera clear. There is far less white exudate on the soft and hard palate and only what appears to be a very superficial erosion now on the right side at the posterior margin of her gingiva. No vesicles. No JVD. Lungs good aeration in the upper lung salter diminished at both bases but no wheezing or crackles heard anywhere today. Heart rhythm regular no S3 or S4. Active bowel sounds with no abdominal tenderness. No irritation or redness of the heels. She has contractures of the ankles and toes bilaterally. No spontaneous tremors noted today. Objective Objective Clinical Data: Abnormal lab results 05/09/18 05/09/18 Range/Units 11:37 11:37 Creatinine 0.54 L D (0.55-1.02) mg/dL Vancomycin Trough 28.4 H* (10.0-20.0) ug/mL Vital Signs Temperature 36.7 C 05/10/18 07:29 Temperature Source Tympanic 05/10/18 07:29 Pulse 66 05/10/18 07:29 Pulse Rhythm Regular 05/10/18 09:51 Pulse 59 L 05/08/18 12:01 Respiratory Rate 17 05/10/18 07:29 Respiratory Effort 05/10/18 09:51 Respiratory Depth Normal 05/10/18 09:51 Respiratory Pattern Normal 05/10/18 09:51 Blood Pressure 114/64 05/10/18 07:29 Blood Pressure Mean 74 05/08/18 13:51 Blood Pressure Position Left Lateral 05/08/18 09:00 Pulse Oximetry 96 05/10/18 07:29 Oxygen Delivery Method Room Air 05/10/18 07:29 Oxygen Flow Rate 0 05/10/18 07:29 Pain Level 0 05/10/18 07:29 Comment 05/08/18 17:47 Intake & Output 05/09/18 05/09/18 05/10/18 11:59 23:59 11:59 Intake Total 830 / 2900 2070 / 2900 350 / 350 Output Total 2500 / 3720 1220 / 3720 Balance -1670 / -820 850 / -820 350 / 350 Weight 53.4 kg Intake: IV 350 / 1700 1350 / 1700 350 / 350 Intake, Tube Feeding Amount 480 / 1200 720 / 1200 Output: Urine 2500 / 3700 1200 / 3700 Output, Residual 0 20 Other: Urine Color Pale Yellow Yellow Urine Appearance Clear Clear Clear Comment will receive full skin care later in the shift large inc urine requiring bed change large inc void x 1 Stool Size Moderate Smear Stool Characteristics Soft Voiding Methods Incontinent Diaper Incontinent Laboratory Results WBC 6.37 k/cumm (4.4-10.8) 05/09/18 06:10 RBC 3.29 m/cumm (4.00-5.20) L 05/09/18 06:10 Hgb 9.9 g/dL (12.0-15.5) L 05/09/18 06:10 Hct 32.0 % (36.0-46.0) L 05/09/18 06:10 MCV 97.3 fL (80-95) H 05/09/18 06:10 MCH 30.1 pg (27.0-33.0) 05/09/18 06:10 MCHC 30.9 g/dL (32.0-36.0) L 05/09/18 06:10 RDW 14.4 % (11.7-14.6) 05/09/18 06:10 Plt Count 200 x1000/uL (130-400) 05/09/18 06:10 MPV 10.6 fL (8.0-11.0) 05/09/18 06:10 Immature Gran % 0.5 05/07/18 08:45 Neutrophils % 83.6 05/07/18 08:45 Lymphocytes % 7.0 05/07/18 08:45 Monocytes % 8.5 05/07/18 08:45 Eosinophils % 0.0 05/07/18 08:45 Basophils % 0.4 05/07/18 08:45 Absolute Neutrophils 11.15 k/cumm (1.2-6.7) H 05/07/18 08:45 Absolute Lymphocytes 0.93 k/cumm (1.2-3.4) L 05/07/18 08:45 Absolute Monocytes 1.13 k/cumm (0.11-0.7) H 05/07/18 08:45 Absolute Eosinophils 0.00 k/cumm (0.0-0.7) 05/07/18 08:45 Absolute Basophils 0.05 k/cumm (0.0-0.2) 05/07/18 08:45 Sodium 143 mmol/L (136-145) 05/07/18 08:45 Potassium 4.3 mmol/L (3.5-5.1) 05/07/18 08:45 Chloride 103 mmol/L (98-107) 05/07/18 08:45 Carbon Dioxide 29.7 mmol/L (21.0-32.0) 05/07/18 08:45 Anion Gap 10.3 mmol/L (3-11) 05/07/18 08:45 BUN 41 mg/dL (7-18) H 05/07/18 08:45 Creatinine 0.54 mg/dL (0.55-1.02) L D 05/09/18 11:37 Estimated GFR/1.73 m2 >= 60.00 (mL/min/1.73m2) 05/09/18 11:37 Glucose 144 mg/dL (70-100) H 05/07/18 08:45 Lactate 1.1 mmol/L (0.6-1.4) 05/07/18 08:45 Calcium 9.7 mg/dL (8.5-10.1) 05/07/18 08:45 Total Bilirubin 0.5 mg/dL (0.2-1.0) 05/07/18 08:45 AST 26 U/L (15-37) 05/07/18 08:45 ALT 14 U/L (12-78) 05/07/18 08:45 Alkaline Phosphatase 98 U/L (46-116) 05/07/18 08:45 Troponin I 0.03 ng/mL (0.00-0.06) 05/07/18 08:45 Total Protein 7.8 g/dL (6.4-8.2) 05/07/18 08:45 Albumin 3.5 g/dL (3.4-5.0) 05/07/18 08:45 Urine Color Yellow (Yellow) 05/07/18 10:35 Urine Clarity Clear 05/07/18 10:35 Urine pH 5.5 (5-8) 05/07/18 10:35 Ur Specific [place] 1.025 (1.005-1.025) 05/07/18 10:35 Urine Protein 30 mg/dL (Negative) H 05/07/18 10:35 Urine Ketones Negative mg/dL (Negative) 05/07/18 10:35 Urine Blood Trace-intact (Negative) H 05/07/18 10:35 Urine Nitrite Negative (Negative) 05/07/18 10:35 Urine Bilirubin Negative (Negative) 05/07/18 10:35 Urine Urobilinogen 0.2 EU/dL (Up TO 0.2) 05/07/18 10:35 Ur Leukocyte Esterase Negative (Negative) 05/07/18 10:35 Urine RBC 3-5 (0-2) H 05/07/18 10:35 Urine WBC 10-20 HPF (0-5) 05/07/18 10:35 Ur Epithelial Cells Few HPF (Negative) 05/07/18 10:35 Urine Crystals Rare calcium oxalate HPF (Negative) 05/07/18 10:35 Urine Bacteria Few HPF (Negative) 05/07/18 10:35 Urine Casts Comment LPF (Negative) 05/07/18 10:35 Urine Mucus Moderate (Negative) 05/07/18 10:35 Urine Other Few renal (Negative) 05/07/18 10:35 Ur Culture Indicated? Yes 05/07/18 10:35 Urine Glucose Negative mg/dL (Negative) 05/07/18 10:35 Vancomycin Trough 28.4 ug/mL (10.0-20.0) H* 05/09/18 11:37
[2018-05-10] MEDS: Enoxaparin 40 MG/0.4 ML SYR SC (11:52)
--- NOTE | 2018-05-10 13:18 | PDOC.CMPRO ---
- If Service Date Differs Date of service: 05/10/18 Time of Service: 13:18 Care Management Progress Note S/O: Jyalyn continues on IV antibiotics at this time. Dr. Canseco in morning meeting stated that Jaylyn would require a total of 5 days of IV antibiotics. MEAGHAN contacted [facility], to inquire as to whether [facility] would be able to accept Jaylyn back on the weekend. [facility] states that he will be contacting Dr. Nobles in regards to this. A: 53 y/o female admitted 05/08/18 with fever. P: Jaylyn will return to [facility] once medically cleared. ? transport via w/c van vs. ambulance depending on presentation.
--- NOTE | 2018-05-10 13:49 | CMPROGNOTE_ITS ---
- If Service Date Differs Date of service: 05/10/18 Time of Service: 13:18 Care Management Progress Note S/O: Jaylyn continues on IV antibiotics at this time. Dr. Canseco in morning meeting stated that Jaylyn would require a total of 5 days of IV antibiotics. MEAGHAN contacted [facility], to inquire as to whether [facility] would be able to accept Jaylyn back on the weekend. [facility] states that he will be contacting Dr. Nobles in regards to this. A: 53 y/o female admitted 05/08/18 with fever. P: Jaylyn will return to [facility] once medically cleared. ? transport via w/c van vs. ambulance depending on presentation.
--- NOTE | 2018-05-10 15:23 | NUR.NOTE ---
Nursing Note: while covering peer nurses lunch, staff advised patient was vomiting. about 50 cc of emesis with a blood clot was noted, kangaroo pump with tube feed, was initiated short time earlier. patient was stillc/o nausea after she was [id number] up and toileted, Dr. irene was notified and he wanted the kangaroo pump stopped for an hour, a, then resume, time for resumption was 1350, note left for clinical acute care physical therapist and peer nurse
[2018-05-10 15:53] VITALS: BP 120/62; PULSE 74; RESP 19; TEMP 36.4; O2SAT 97
[2018-05-10] MEDS: Normal Saline Flush 10 ML SYR IVP (19:31)
[2018-05-10 20:13] VITALS: BP 128/78; PULSE 76; RESP 18; TEMP 36.7; O2SAT 99
[2018-05-11] VITALS (7 sets, daily range): BP systolic 131–159; BP diastolic 62–83; PULSE 59–78; RESP 16–20; TEMP 36.5–37.3; O2SAT 94–98
[2018-05-11 05:17] LABS: CREATININE 0.62 mg/dL (0.55-1.02)
[2018-05-11 05:39] LABS: Vancomycin, Trough 27.2 ug/mL (10.0-20.0)
[2018-05-11] MEDS: CEFEPIME 2 GM in Normal Saline 100 ML IVPB ×2 (07:56→20:41)
[2018-05-11] MEDS: rOPINIRole 0.5 MG TAB 0.25 MG NG ×3 (08:53→20:44)
[2018-05-11] MEDS: Propranolol 20 MG TAB 40 MG NG ×2 (08:53→20:44)
[2018-05-11] MEDS: FLUoxetine 20 MG CAP NG (08:53)
[2018-05-11] MEDS: Omeprazole 20 MG CAPCR NG (08:53)
[2018-05-11] MEDS: Nystatin 500000 UNITS/5 ML SUSP 5ML CUP PO ×3 (08:54→20:44)
--- NOTE | 2018-05-11 11:27 | W.PM.PROGNOT ---
Date of Service Date of service: 05/11/18 Time of Service: 10:30 Assessment and Plan (1) Fever: Current visit: Yes Status: Acute She remains afebrile, under treatment for possible healthcare associated pneumonia and enterococcus faecium urinary tract infection. Continue current IV antibiotics with a plan to treat with parenteral antibiotics for 5 days since fever resolved, which will take her through May 12. (2) UTI (urinary tract infection) due to Enterococcus: Current visit: Yes Status: Acute Evidence for UTI is equivocal at best. Her initial urinalysis was contaminated, subsequent also had epithelial cells and no nitrites or leukocyte esterase but her culture prior to this admission and again on this admission is growing Enterococcus faecium although not at a high colony count. I would expect to have seen more pyuria if this was the cause of her very high temperature elevation on presentation. Nevertheless I am going to continue empiric treatment. Vancomycin dose being adjusted based on trough levels. (3) Healthcare-associated pneumonia: Current visit: Yes Status: Acute Remains afebrile with normal air oxygen saturations and better exam. No witnessed aspiration events since arrival here. Continue empiric antibiotics for 5 days since fever resolved as noted above. (4) Oral mucosal lesion: Current visit: Yes Status: Acute Exudate has reduced and the area of erosion appears to be smaller. Perhaps this is all related to thrush? Continue topical application of nystatin. (5) Parkinsons disease: Current visit: Yes Status: Chronic Stable on outpatient meds, no changes planned (6) Gastrostomy tube dependent: Current visit: Yes Status: Acute Tolerating tube feeds without abdominal distention or diarrhea. Continue to monitor with current regimen. (7) Essential hypertension: Current visit: Yes Status: Chronic Blood pressure is acceptable on current dose of propranolol (8) Discharge planning issues: Current visit: Yes Status: Acute Anticipate return back to [facility] when medically stable, possibly entering hospice services in the new year. Dr. Garcia discussed with her end of preferences and has changed CODE STATUS to DNR/DNI after this conversation. (9) Urinary incontinence: Current visit: Yes Status: Chronic At this point no plans for any treatment of her incontinence. Close attention to skin care to prevent decubitus ulcer formation. Subjective Interval history since last seen: No fever or aspiration events overnight. Remains incontinent of urine. Tolerating tube feedings. custodial unable to administer twice daily antibiotics so will stay here to complete treatment. Exam Narrative Exam Narrative: Awake, difficult to understand her this morning with her mumbling but her responses seem appropriate to simple questions. No fever. Blood pressure 1 teens to 140s. Normal room air oxygen saturation. There is still a white material on the roof of her mouth which may just be dried secretions. The erosions seen on the right gingiva/palate junction area has almost completely resolved. No obvious mass. No cervical adenopathy. Anterior lung salter clear, slightly diminished breath sounds at the bases but no crackles or wheezing heard. No heart murmur S3 or S4. Gastrostomy tube site without erythema. No ankle edema. Feet are warm. Slightly tremulous today. Objective Objective Clinical Data: Abnormal lab results 05/11/18 Range/Units 04:55 Vancomycin Trough 27.2 H* (10.0-20.0) ug/mL Vital Signs Temperature 37.2 C 05/11/18 07:25 Temperature Source Tympanic 05/11/18 07:25 Pulse 76 05/11/18 07:25 Pulse Rhythm Regular 05/11/18 08:39 Pulse 59 L 05/08/18 12:01 Respiratory Rate 16 05/11/18 07:25 Respiratory Effort 05/11/18 08:39 Respiratory Depth Normal 05/11/18 08:39 Respiratory Pattern Normal 05/11/18 08:39 Blood Pressure 131/62 05/11/18 07:25 Blood Pressure Mean 74 05/08/18 13:51 Blood Pressure Position Left Lateral 05/08/18 09:00 Pulse Oximetry 98 05/11/18 07:25 Oxygen Delivery Method Room Air 05/11/18 07:25 Oxygen Flow Rate 0 05/11/18 07:25 Pain Level 0 05/11/18 08:53 Comment 05/08/18 17:47 Intake & Output 05/10/18 05/10/18 05/11/18 11:59 23:59 11:59 Intake Total 590 / 1660 1070 / 1660 340 / 340 Output Total 0 / 836 836 / 836 5 / 5 Balance 590 / 824 234 / 824 335 / 335 Weight 53.4 kg Intake: IV 350 / 700 350 / 700 100 / 100 Intake, Tube Feeding Amount 240 / 960 720 / 960 240 / 240 Output: Gastric Drainage 450 / 450 0 / 0 Lt Upper Quadrant 450 / 450 0 / 0 Urine 300 / 300 Output, Residual 0 / 86 86 / 86 5 / 5 Other: Urine Color Light Jeannie Urine Appearance Clear Clear Urine Odor Strong None Comment patient cleaned and repositioned to her right side at this time, at patient request oral care was given again inc urine x 2 large inc uriine Stool Size Moderate Stool Characteristics Soft Formed Voiding Methods Incontinent Diaper Diaper Incontinent Incontinent Laboratory Results WBC 6.37 k/cumm (4.4-10.8) 05/09/18 06:10 RBC 3.29 m/cumm (4.00-5.20) L 05/09/18 06:10 Hgb 9.9 g/dL (12.0-15.5) L 05/09/18 06:10 Hct 32.0 % (36.0-46.0) L 05/09/18 06:10 MCV 97.3 fL (80-95) H 05/09/18 06:10 MCH 30.1 pg (27.0-33.0) 05/09/18 06:10 MCHC 30.9 g/dL (32.0-36.0) L 05/09/18 06:10 RDW 14.4 % (11.7-14.6) 05/09/18 06:10 Plt Count 200 x1000/uL (130-400) 05/09/18 06:10 MPV 10.6 fL (8.0-11.0) 05/09/18 06:10 Immature Gran % 0.5 05/07/18 08:45 Neutrophils % 83.6 05/07/18 08:45 Lymphocytes % 7.0 05/07/18 08:45 Monocytes % 8.5 05/07/18 08:45 Eosinophils % 0.0 05/07/18 08:45 Basophils % 0.4 05/07/18 08:45 Absolute Neutrophils 11.15 k/cumm (1.2-6.7) H 05/07/18 08:45 Absolute Lymphocytes 0.93 k/cumm (1.2-3.4) L 05/07/18 08:45 Absolute Monocytes 1.13 k/cumm (0.11-0.7) H 05/07/18 08:45 Absolute Eosinophils 0.00 k/cumm (0.0-0.7) 05/07/18 08:45 Absolute Basophils 0.05 k/cumm (0.0-0.2) 05/07/18 08:45 Sodium 143 mmol/L (136-145) 05/07/18 08:45 Potassium 4.3 mmol/L (3.5-5.1) 05/07/18 08:45 Chloride 103 mmol/L (98-107) 05/07/18 08:45 Carbon Dioxide 29.7 mmol/L (21.0-32.0) 05/07/18 08:45 Anion Gap 10.3 mmol/L (3-11) 05/07/18 08:45 BUN 41 mg/dL (7-18) H 05/07/18 08:45 Creatinine 0.62 mg/dL (0.55-1.02) 05/11/18 04:55 Estimated GFR/1.73 m2 >= 60.00 (mL/min/1.73m2) 05/11/18 04:55 Glucose 144 mg/dL (70-100) H 05/07/18 08:45 Lactate 1.1 mmol/L (0.6-1.4) 05/07/18 08:45 Calcium 9.7 mg/dL (8.5-10.1) 05/07/18 08:45 Total Bilirubin 0.5 mg/dL (0.2-1.0) 05/07/18 08:45 AST 26 U/L (15-37) 05/07/18 08:45 ALT 14 U/L (12-78) 05/07/18 08:45 Alkaline Phosphatase 98 U/L (46-116) 05/07/18 08:45 Troponin I 0.03 ng/mL (0.00-0.06) 05/07/18 08:45 Total Protein 7.8 g/dL (6.4-8.2) 05/07/18 08:45 Albumin 3.5 g/dL (3.4-5.0) 05/07/18 08:45 Urine Color Yellow (Yellow) 05/07/18 10:35 Urine Clarity Clear 05/07/18 10:35 Urine pH 5.5 (5-8) 05/07/18 10:35 Ur Specific [place] 1.025 (1.005-1.025) 05/07/18 10:35 Urine Protein 30 mg/dL (Negative) H 05/07/18 10:35 Urine Ketones Negative mg/dL (Negative) 05/07/18 10:35 Urine Blood Trace-intact (Negative) H 05/07/18 10:35 Urine Nitrite Negative (Negative) 05/07/18 10:35 Urine Bilirubin Negative (Negative) 05/07/18 10:35 Urine Urobilinogen 0.2 EU/dL (Up TO 0.2) 05/07/18 10:35 Ur Leukocyte Esterase Negative (Negative) 05/07/18 10:35 Urine RBC 3-5 (0-2) H 05/07/18 10:35 Urine WBC 10-20 HPF (0-5) 05/07/18 10:35 Ur Epithelial Cells Few HPF (Negative) 05/07/18 10:35 Urine Crystals Rare calcium oxalate HPF (Negative) 05/07/18 10:35 Urine Bacteria Few HPF (Negative) 05/07/18 10:35 Urine Casts Comment LPF (Negative) 05/07/18 10:35 Urine Mucus Moderate (Negative) 05/07/18 10:35 Urine Other Few renal (Negative) 05/07/18 10:35 Ur Culture Indicated? Yes 05/07/18 10:35 Urine Glucose Negative mg/dL (Negative) 05/07/18 10:35 Vancomycin Trough 27.2 ug/mL (10.0-20.0) H* 05/11/18 04:55
--- NOTE | 2018-05-11 13:03 | PDOC.CMPRO ---
- If Service Date Differs Date of service: 05/11/18 Time of Service: 13:04 Care Management Progress Note S/O: Jaylyn continues on IV antibiotics at this time, she will require IV antibiotics until Monday05/12/18. CM notified [facility], and have arranged for a tentative DC date of Monday05/13/18. CM also notified Satish, of the transport need for Monday and have set a tentative time for 1100. A: 53 y/o female admitted 05/08/18 with fever. P: Jaylyn will return to [facility] once medically cleared. Transport via ambulance.
[2018-05-11] MEDS: Enoxaparin 40 MG/0.4 ML SYR SC (13:51)
--- NOTE | 2018-05-11 13:57 | CMPROGNOTE_ITS ---
- If Service Date Differs Date of service: 05/11/18 Time of Service: 13:04 Care Management Progress Note S/O: Jaylyn continues on IV antibiotics at this time, she will require IV antibiotics until Monday05/12/18. CM notified [facility], and have arranged for a tentative DC date of Monday05/13/18. CM also notified Satish, of the transport need for Monday and have set a tentative time for 1100. A: 53 y/o female admitted 05/08/18 with fever. P: Jaylyn will return to [facility]& once medically cleared. Transport via ambulance.
[2018-05-11] MEDS: VANCOMYCIN 750 MG in Normal Saline 250 ML 166.667 MG IVPB (17:10)
[2018-05-11] MEDS: Baclofen 10 MG TAB NG (20:45)
[2018-05-12] MEDS: VANCOMYCIN 750 MG in Normal Saline 250 ML 166.667 MG IVPB ×2 (03:31→15:26)
[2018-05-12 06:06] LABS: Platelet Count 232 x1000/uL (130-400)
[2018-05-12 07:19] VITALS: BP 135/82; PULSE 68; RESP 16; TEMP 36.4; O2SAT 95
[2018-05-12] MEDS: CEFEPIME 2 GM in Normal Saline 100 ML IVPB ×2 (08:35→20:15)
[2018-05-12] MEDS: Nystatin 500000 UNITS/5 ML SUSP 5ML CUP PO ×3 (08:37→20:15)
[2018-05-12] MEDS: Omeprazole 20 MG CAPCR NG (08:37)
[2018-05-12] MEDS: Propranolol 20 MG TAB 40 MG NG ×2 (08:37→20:15)
[2018-05-12] MEDS: FLUoxetine 20 MG CAP NG (08:38)
[2018-05-12] MEDS: rOPINIRole 0.5 MG TAB 0.25 MG NG ×3 (08:38→20:15)
--- NOTE | 2018-05-12 09:19 | PDOC.CMPRO ---
- If Service Date Differs Date of service: 05/12/18 Time of Service: 09:19 Care Management Progress Note S/O: CM met with Jaylyn, she appears comfortable at this time. No change in status today. Jaylyn continues to be monitored related to her presentation with fever at time of admission. She will have follow up labs today and anticipate she will return to [facility] tomorrow per provider if she remains stable. Code status was changed to DNR/DNI and palliative care continues to provide support to patient and family. A: 53 y/o female admitted 05/08/18 with fever with a history of debilitating MS. P: Jaylyn will return to [facility] once medically ready per provider. Jaylyn will transport via ambulance coordinated by [facility] prior to discharge. Anticipate she will return to [facility] on Monday05/13/18 at 11;00 am.
--- NOTE | 2018-05-12 09:23 | CMPROGNOTE_ITS ---
- If Service Date Differs Date of service: 05/12/18 Time of Service: 09:19 Care Management Progress Note S/O: CM met with Jaylyn, she appears comfortable at this time. No change in status today. Jaylyn continues to be monitored related to her presentation with fever at time of admission. She will have follow up labs today and anticipate she will return to [facility] tomorrow per provider if she remains stable. Code status was changed to DNR/DNI and palliative care continues to provide support to bubba nasreen and family. A: 53 y/o female admitted 05/08/18 with fever with a history of debilitating MS. P: Jaylyn will return to [facility] once medically ready per provider. Jaylyn will transport via ambulance coordinated by [facility] prior to discharge. Anticipate she will return to H[facility]R on Monday05/13/18 at 11;00 am.
[2018-05-12 10:05] LABS: Abs Immature Grans 0.09 k/cumm (0.0-0.09); Absolute Basophil Count 0.05 k/cumm (0.0-0.2); Absolute Eosinophil Count 0.21 k/cumm (0.0-0.7); Absolute Lymphocyte Count 2.23 k/cumm (1.2-3.4); Absolute Monocyte Count 0.64 k/cumm (0.11-0.7); Absolute Neutrophil Count 4.85 k/cumm (1.2-6.7); Basophils % 0.6; Eosinophils % 2.6; HCT 28.7 % (36.0-46.0); HGB 9.2 g/dL (12.0-15.5); Immature Grans % 1.1; Lymphocytes % 27.6; Mean Corp. HGB Concentration 32.1 g/dL (32.0-36.0); Mean Corpuscular Hemoglobin 30.8 pg (27.0-33.0); Monocytes % 7.9; Neutrophils % 60.2; Platelet Count 236 x1000/uL (130-400); RBC 2.99 m/cumm (4.00-5.20); RBC Distribution Width 14.6 % (11.7-14.6); White Blood Cell Count 8.07 k/cumm (4.4-10.8)
[2018-05-12 10:09] LABS: Anion Gap 7.1 mmol/L (3-11); BUN 21 mg/dL (7-18); CO2 29.9 mmol/L (21.0-32.0); CREATININE 0.66 mg/dL (0.55-1.02); Chloride 101 mmol/L (98-107); Glucose 101 mg/dL (70-100); Potassium 4.4 mmol/L (3.5-5.1); Sodium 138 mmol/L (136-145)
[2018-05-12 11:40] VITALS: BP 157/73; PULSE 66; RESP 16; TEMP 36.1; O2SAT 99
[2018-05-12] MEDS: Enoxaparin 40 MG/0.4 ML SYR SC (12:33)
--- NOTE | 2018-05-12 13:54 | W.PM.PROGNOT ---
Date of Service Date of service: 05/12/18 Time of Service: 13:54 Assessment and Plan (1) Fever: Current visit: Yes Status: Acute Remains afebrile. On vancomycin and cefepime (5 day course to be completed tomorrow am) for possible healthcare associated pneumonia and enterococcus faecium urinary tract infection. (2) UTI (urinary tract infection) due to Enterococcus: Current visit: Yes Status: Acute Her initial urinalysis was contaminated, subsequent also had epithelial cells and no nitrites or leukocyte esterase but her culture prior to this admission and again on this admission is growing Enterococcus faecium although not at a high colony count. Most likely this is reflective of colonization - but, as antibiotics seem to have improved her condition, we will finish a 5 day course tomorrow. (3) Healthcare-associated pneumonia: Current visit: Yes Status: Acute Not requiring Oxygen. High risk for both HCAP and aspiration, but no witnessed aspiration events reported on this admission. Finish antibiotics tomorrow with planned discharge back to [facility] tomorrow. (4) Oral mucosal lesion: Current visit: Yes Status: Acute Likely due to oropharyngeal thrush as responding to nystatin. Continue topical application of nystatin. (5) Parkinsons disease: Current visit: Yes Status: Chronic Stable on outpatient meds, no changes planned (6) Gastrostomy tube dependent: Current visit: Yes Status: Acute Tolerating tube feeds without abdominal distention or diarrhea. Continue to monitor with current regimen. (7) Essential hypertension: Current visit: Yes Status: Chronic Continue propranolol (8) Urinary incontinence: Current visit: Yes Status: Chronic Monitor condition of skin and frequently turn/reposition to ensure no wounds develop. Chronic issue - no further workup. (9) Discharge planning issues: Current visit: Yes Status: Acute Planned for discharge back to [facility] tomorrow, with [facility] services in the new year. Dr. Garcia discussed with her end of preferences and has changed CODE STATUS to DNR/DNI after this conversation. Subjective Interval history since last seen: Jaylyn complains of dizziness every time she is turned, but otherwise states she is doing good. She denies headache, chest pain, shortness of breath, nausea, vomiting. Exam Narrative Exam Narrative: General: A&Ox3, mumbling but understandable. Laying comfortably in bed HEENT: EOMI, MMM Heart: RRR, mildly tachycardic, no murmurs Lungs: CTAB GI: abdomen soft, nontender; feeding tube in place Extremities: trace edema BLE's, no clubbing/cyanosis Objective Objective Clinical Data: Abnormal lab results 05/12/18 05/12/18 Range/Units 05:45 05:45 RBC 2.99 L (4.00-5.20) m/cumm Hgb 9.2 L (12.0-15.5) g/dL Hct 28.7 L (36.0-46.0) % MCV 96.0 H (80-95) fL BUN 21 H (7-18) mg/dL Glucose 101 H (70-100) mg/dL Vital Signs Temperature 36.1 C L 05/12/18 11:40 Temperature Source Tympanic 05/12/18 11:40 Pulse 66 05/12/18 11:40 Pulse Rhythm Regular 05/12/18 08:57 Pulse 59 L 05/08/18 12:01 Respiratory Rate 16 05/12/18 11:40 Respiratory Effort 05/12/18 08:57 Respiratory Depth Normal 05/12/18 08:57 Respiratory Pattern Normal 05/12/18 08:57 Blood Pressure 157/73 H 05/12/18 11:40 Blood Pressure Mean 74 05/08/18 13:51 Blood Pressure Position Left Lateral 05/08/18 09:00 Pulse Oximetry 99 05/12/18 11:40 Oxygen Delivery Method Room Air 05/12/18 11:40 Oxygen Flow Rate 0 05/12/18 11:40 Pain Level 0 05/12/18 11:40 Comment 05/08/18 17:47 Intake & Output 05/11/18 05/12/18 05/12/18 23:59 11:59 23:59 Intake Total 1070 / 1650 730 / 830 100 / 830 Output Total 0 / 5 5 / 5 Balance 1070 / 1645 725 / 825 100 / 825 Weight 49.7 kg 50 kg Intake: IV 350 / 450 250 / 350 100 / 350 Intake, Tube Feeding Amount 720 / 1200 480 / 480 Output: Gastric Drainage 0 / 0 0 / 0 Lt Upper Quadrant 0 / 0 0 / 0 Output, Residual 0 / 5 5 / 5 Other: Urine Color Yellow Urine Appearance Clear Urine Odor Strong None Stool Size Smear Voiding Methods Diaper Diaper Diaper Incontinent Incontinent Incontinent Laboratory Results WBC 8.07 k/cumm (4.4-10.8) 05/12/18 05:45 RBC 2.99 m/cumm (4.00-5.20) L 05/12/18 05:45 Hgb 9.2 g/dL (12.0-15.5) L 05/12/18 05:45 Hct 28.7 % (36.0-46.0) L 05/12/18 05:45 MCV 96.0 fL (80-95) H 05/12/18 05:45 MCH 30.8 pg (27.0-33.0) 05/12/18 05:45 MCHC 32.1 g/dL (32.0-36.0) 05/12/18 05:45 RDW 14.6 % (11.7-14.6) 05/12/18 05:45 Plt Count 236 x1000/uL (130-400) 05/12/18 05:45 MPV 11.0 fL (8.0-11.0) 05/12/18 05:45 Immature Gran % 1.1 05/12/18 05:45 Neutrophils % 60.2 05/12/18 05:45 Lymphocytes % 27.6 05/12/18 05:45 Monocytes % 7.9 05/12/18 05:45 Eosinophils % 2.6 05/12/18 05:45 Basophils % 0.6 05/12/18 05:45 Absolute Neutrophils 4.85 k/cumm (1.2-6.7) 05/12/18 05:45 Absolute Lymphocytes 2.23 k/cumm (1.2-3.4) 05/12/18 05:45 Absolute Monocytes 0.64 k/cumm (0.11-0.7) 05/12/18 05:45 Absolute Eosinophils 0.21 k/cumm (0.0-0.7) 05/12/18 05:45 Absolute Basophils 0.05 k/cumm (0.0-0.2) 05/12/18 05:45 Sodium 138 mmol/L (136-145) 05/12/18 05:45 Potassium 4.4 mmol/L (3.5-5.1) 05/12/18 05:45 Chloride 101 mmol/L (98-107) 05/12/18 05:45 Carbon Dioxide 29.9 mmol/L (21.0-32.0) 05/12/18 05:45 Anion Gap 7.1 mmol/L (3-11) 05/12/18 05:45 BUN 21 mg/dL (7-18) H 05/12/18 05:45 Creatinine 0.66 mg/dL (0.55-1.02) 05/12/18 05:45 Estimated GFR/1.73 m2 >= 60.00 (mL/min/1.73m2) 05/12/18 05:45 Glucose 101 mg/dL (70-100) H 05/12/18 05:45 Lactate 1.1 mmol/L (0.6-1.4) 05/07/18 08:45 Calcium 9.0 mg/dL (8.5-10.1) 05/12/18 05:45 Magnesium 2.0 mg/dL (1.8-2.4) 05/12/18 05:45 Total Bilirubin 0.5 mg/dL (0.2-1.0) 05/07/18 08:45 AST 26 U/L (15-37) 05/07/18 08:45 ALT 14 U/L (12-78) 05/07/18 08:45 Alkaline Phosphatase 98 U/L (46-116) 05/07/18 08:45 Troponin I 0.03 ng/mL (0.00-0.06) 05/07/18 08:45 Total Protein 7.8 g/dL (6.4-8.2) 05/07/18 08:45 Albumin 3.5 g/dL (3.4-5.0) 05/07/18 08:45 Urine Color Yellow (Yellow) 05/07/18 10:35 Urine Clarity Clear 05/07/18 10:35 Urine pH 5.5 (5-8) 05/07/18 10:35 Ur Specific [place] 1.025 (1.005-1.025) 05/07/18 10:35 Urine Protein 30 mg/dL (Negative) H 05/07/18 10:35 Urine Ketones Negative mg/dL (Negative) 05/07/18 10:35 Urine Blood Trace-intact (Negative) H 05/07/18 10:35 Urine Nitrite Negative (Negative) 05/07/18 10:35 Urine Bilirubin Negative (Negative) 05/07/18 10:35 Urine Urobilinogen 0.2 EU/dL (Up TO 0.2) 05/07/18 10:35 Ur Leukocyte Esterase Negative (Negative) 05/07/18 10:35 Urine RBC 3-5 (0-2) H 05/07/18 10:35 Urine WBC 10-20 HPF (0-5) 05/07/18 10:35 Ur Epithelial Cells Few HPF (Negative) 05/07/18 10:35 Urine Crystals Rare calcium oxalate HPF (Negative) 05/07/18 10:35 Urine Bacteria Few HPF (Negative) 05/07/18 10:35 Urine Casts Comment LPF (Negative) 05/07/18 10:35 Urine Mucus Moderate (Negative) 05/07/18 10:35 Urine Other Few renal (Negative) 05/07/18 10:35 Ur Culture Indicated? Yes 05/07/18 10:35 Urine Glucose Negative mg/dL (Negative) 05/07/18 10:35 Vancomycin Trough 27.2 ug/mL (10.0-20.0) H* 05/11/18 04:55
[2018-05-12 15:41] VITALS: BP 142/76; PULSE 69; RESP 19; TEMP 36.5; O2SAT 95
[2018-05-12 19:36] VITALS: BP 118/78; PULSE 72; RESP 16; TEMP 36.4; O2SAT 98
[2018-05-12 21:02] VITALS: O2SAT 99
[2018-05-12 23:23] VITALS: BP 117/65; PULSE 61; RESP 16; TEMP 36.9; O2SAT 99
[2018-05-13] MEDS: VANCOMYCIN 750 MG in Normal Saline 250 ML 166.667 MG IVPB (04:04)
[2018-05-13 07:25] VITALS: BP 126/68; PULSE 76; RESP 16; TEMP 36.3; O2SAT 97
--- NOTE | 2018-05-13 07:49 | PDOC.CMDIS ---
- If Service Date Differs Date of service: 05/13/18 Time of Service: 07:49 LACE Index Scoring Tool - Questions: Length of Stay (in days): 4 - 6 Acuity (Admit via E.D.?): Yes Comorbidities: Connective Tissue Disease E.D. Visits: 6 - Answers: Total Score: 14 Risk of Readmission: High Risk Care Management Discharge Reason for Hospitalization: Fever Discharge Plan: Jaylyn is [facility]. CM contacted production crew supervisor industrial organizational psychologist at the facility and they are anticpating Jaylyn's return. Jaylyn will transport via ambulance coordianted by CM via [facility]. Update Colst was faxed to facility. Jaylyn is aware that she is returning and will resume palliative care support at time of discharge. Patient/Family Education Needs: Discharge education and follow up plan of care. Services Needed at Discharge: [facility]
[2018-05-13] MEDS: FLUoxetine 20 MG CAP NG (08:19)
[2018-05-13] MEDS: Omeprazole 20 MG CAPCR NG (08:19)
[2018-05-13] MEDS: Propranolol 20 MG TAB 40 MG NG (08:19)
[2018-05-13] MEDS: rOPINIRole 0.5 MG TAB 0.25 MG NG (08:19)
[2018-05-13] MEDS: Nystatin 500000 UNITS/5 ML SUSP 5ML CUP PO (08:20)
[2018-05-13] MEDS: CEFEPIME 2 GM in Normal Saline 100 ML IVPB (08:52)
--- NOTE | 2018-05-13 10:33 | W.PM.DS.N ---
Date of service: 05/13/18 Time of Service: 10:33 DS: Diagnosis Discharge Diagnosis (1) Sepsis: Status: Resolved (2) UTI (urinary tract infection) due to Enterococcus: Status: Acute (3) Healthcare-associated pneumonia: Status: Acute (4) Oral mucosal lesion: Status: Acute (5) Parkinsons disease: Status: Chronic (6) Gastrostomy tube dependent: Status: Acute (7) Essential hypertension: Status: Chronic (8) Urinary incontinence: Status: Chronic Discharge Plan Disposition Patient Disposition: [facility] (LEVEL 2) [facility] Condition: Good Discharge Details Reason For Visit: FEVER Admit Date/Time: 05/08/18 06:50 Admit Provider: Josh Jo Attending Provider: Josh Jo Primary Care Provider: Barbara Almaguer Hospital Course Hospital Course: Ms So is a 53 year old female with history of multiple prior admissions to our service for recurrent aspiration pneumonias due to dysphagia in the context of her underlying Parkinson's disease, now PEG-tube dependent, who was admitted [facility] from [facility] on 05/07/18 with fever and leucocytosis with suspected pneumonia and UTI (i.e. sepsis). While her original CXR did not reveal pneumonia, a repeat study done 2 days later, on 05/09, did reveal an infiltrate/evidence of pneumonitis in the posterior lung field (unclear which side). Her urine culture grew 2 different isolates of E. faecium and mixed gram positive valeriano. While her urinalysis was negative, due to patient's septic picture on admission, the decision was made to treat the bacteriuria. The patient received treatment with IV vancomycin and cefepime, having completed a 5 day course and significantly clinically improved. She is stable for return to [facility] today. While CT of abdomen and pelvis showed sludge and borderling thickening of gallbladder wall, there was no clinical suspicion for cholecystitis in this patient. It is important to note that, during this admission, the patient and family had met with palliative care, and a decision was made to change her code status to DNR/DNI. Conversation was begun about transitioning the patient comfort measures including resumption of oral feeds after the new year and will need to be followed up upon at [facility]. At this time, she continues to be fed via tube feedings alone. Home Meds and New Rx's Prescriptions: Continued baclofen 10 MG tablet 10 mg Feeding Tube HS prn Qty: 30 RF: 0 acetaminophen [Tylenol] 325 MG tablet 650 mg Feeding Tube Q4H PRN PRNRF: 0 fluoxetine 20 MG capsule 20 mg Feeding Tube DAILY RF: 0 propranolol 40 MG tablet 40 mg Feeding Tube DAILY RF: 0 ipratropium-albuterol 0.5 mg-3 mg(2.5 mg base)/3 mL solution for nebulization 3 ml IH Q4H RF: 0 omeprazole 20 mg capsule,delayed release(DR/EC) 20 mg Feeding Tube DAILY RF: 0 bisacodyl [Dulcolax (bisacodyl)] 10 mg suppository 10 mg UT ONCE RF: 0 amantadine HCl 100 MG tablet 200 mg Feeding Tube BID RF: 0 polyethylene glycol 3350 17 GM powder in packet 17 gm Feeding Tube DAILY PRNRF: 0 melatonin 3 MG tablet 3 mg Feeding Tube HS PRNRF: 0 calcium carbonate 500 MG tablet,chewable 1 tab Feeding Tube .Q6H, PRN PRNRF: 0 docusate sodium 100 MG capsule 100 mg BID PRNRF: 0 ropinirole [Requip] 0.25 MG tablet 0.25 mg Feeding Tube TID RF: 0 acetaminophen 650 mg Suppository 650 mg UT Q4H PRN PRNRF: 0 naproxen sodium 220 mg Tablet 440 mg Feeding Tube BID RF: 0 Jevity 1.2 Kamlesh 0.06 gram-1.2 kcal/mL Liquid 1 Feeding Tube QID RF: 0 Rytary 48.75-195 mg Capsule, Extended Release 1 cap PO QID Qty: 1 RF: 0 Discharge Instructions Activity:: bed rest Diet:: TF: jevity as prior to admission Discharge Data Discharge Physician: Lauren Klein Exam Narrative Exam Narrative: General: A&Ox3, mumbling but understandable. Laying comfortably in bed HEENT: EOMI, MMM Heart: RRR, mildly tachycardic, no murmurs Lungs: CTAB GI: abdomen soft, nontender; feeding tube in place Extremities: trace edema BLE's, no clubbing/cyanosis DS: Data Vitals/I&O Vitals and I&O: Vital Signs Temperature 36.3 C L 05/13/18 07:25 Temperature Source Tympanic 05/13/18 07:25 Pulse 76 05/13/18 07:25 Pulse Rhythm Regular 05/13/18 09:58 Pulse 59 L 05/08/18 12:01 Respiratory Rate 16 05/13/18 07:25 Respiratory Effort Non-Labored 05/13/18 09:58 Respiratory Depth Normal 05/13/18 09:58 Respiratory Pattern Normal 05/13/18 09:58 Blood Pressure 126/68 05/13/18 07:25 Blood Pressure Mean 74 05/08/18 13:51 Blood Pressure Position Left Lateral 05/08/18 09:00 Pulse Oximetry 97 05/13/18 07:25 Oxygen Delivery Method Room Air 05/13/18 07:25 Oxygen Flow Rate 0 05/13/18 07:25 Pain Level 0 05/13/18 07:25 Comment 05/08/18 17:47 Intake & Output 05/12/18 05/12/18 05/13/18 11:59 23:59 11:59 Intake Total 727 / 1898 1171 / 1898 237 / 237 Output Total 5 / 5 0 / 5 0 / 0 Balance 722 / 1893 1171 / 1893 237 / 237 Weight 50 kg 49.9 kg Intake: IV 250 / 710 460 / 710 Intake, Tube Feeding Amount 477 / 1188 711 / 1188 237 / 237 Output: Gastric Drainage 0 / 0 Lt Upper Quadrant 0 / 0 Output, Residual 5 / 5 0 / 5 0 / 0 Other: Urine Color Yellow Yellow Urine Appearance Clear Clear Urine Odor None Normal Voiding Methods Diaper Diaper Diaper Incontinent Incontinent Incontinent Completed studies during hospitalization [Text1]: CXR 05/07/18: No acute pulmonary process. CXR 05/09/19: A region of increased density is projected over the posterior portion of the lung on the lateral projection. This region is clearly seen and could lie either in the right lower lobe or left lower lobe posteriorly. The findings would be consistent with an acute pneumonitis. CT chest/abdomen/pelvis 05/07/18: A gastrostomy tube is well positioned ending within the stomach. There are findings consistent with constipation. Gallstones are identified in the gallbladder and there is sludge with some slight thickening of the gallbladder wall. Correlation of the above findings with the patient's clinical status is recommended and if there is any further specific clinical question regarding the gallbladder status, then further assessment with an abdominal ultrasound examination is suggested. Urine C&S 05/07/18: Organism 1 ENTEROCOCCUS FAECIUM#1 COLONY COUNT 50,000 - 100,000 COLONIES/ML Organism 2 ENTEROCOCCUS FAECIUM#2 COLONY COUNT 50,000 - 100,000 COLONIES/ML Organism 3 GRAM POSITIVE VALERIANO,MIXED COLONY COUNT <10,000 COLONIES/ML (sensitivities still pending). 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) Ambulatory dysfunction (Chronic) Urinary incontinence (Chronic) Recurrent aspiration events (Chronic) Failure to thrive (Chronic) Seizure (Resolved) NMS (neuroleptic malignant syndrome) (Resolved) Abnormal EKG (Resolved) Hyperlipidemia type III (Chronic) Essential hypertension (Chronic) Anemia (Chronic) History of DIC syndrome (Resolved) Toxic metabolic encephalopathy (Resolved) UTI (urinary tract infection) (Resolved) Dysphagia (Chronic) Encephalopathy acute (Resolved) Fall (Chronic) Acute respiratory failure with hypoxia (Resolved) Pneumonia (Resolved) Anemia (Chronic) Acute kidney injury (Resolved) Parkinsons disease (Chronic) Secondary rhabdomyolysis (Resolved) Non-ST elevation [place] (NSTEMI) (Resolved) Essential hypertension (Chronic) Hyperlipidemia (Chronic) Obesity (Chronic) Osteoarthritis (Chronic) Parkinson's disease (Chronic) PEG (percutaneous endoscopic gastrostomy) adjustment/replacement/removal (Resolved) Surgical History History of vaginal hysterectomy (Resolved) Family History Mother AMI (acute myocardial infarction) Father AMI (acute myocardial infarction) Social History caregiver/support person: Yes household members: other details: lives in a SNF at [facility] housing: halfway marital status: lives independently: No number of children: 2 number of grandchildren: 1 halfway: Yes current occupational status: disabled diet: other caffeine: No eating out: rarely or never Smoking/Tobacco Use Status: Never alcohol intake: never substance use type: does not use
--- NOTE | 2018-05-13 10:45 | DSE_ITS ---
Date of service: 05/13/18 Time of Service: 10:33 DS: Diagnosis Discharge Diagnosis (1) Sepsis: Status: Resolved (2) UTI (urinary tract infection) due to Enterococcus: Status: Acute (3) Healthcare-associated pneumonia: Status: Acute (4) Oral mucosal lesion: Status: Acute (5) Parkinsons disease: Status: Chronic (6) Gastrostomy tube dependent: Status: Acute (7) Essential hypertension: Status: Chronic (8) Urinary incontinence: Status: Chronic Discharge Plan Disposition Patient Disposition: [facility] (LEVEL 2) [facility] Condition: Good Discharge Details Reason For Visit: FEVER Admit Date/Time: 05/08/18 06:50 Admit Provider: Josh Jo Attending Provider: Josh Jo Primary Care Provider: Barbara Almaguer Hospital Course Hospital Course: Ms So is a 53 year old female with history of multiple prior admissions to our service for recurrent aspiration pneumonias due to dysphagia in the context of her underlying Parkinson's disease, now PEG-tube dependent, who was admitted to [facility] from [facility] on 05/07/18 with fever and leucocytosis with suspected pneumonia and UTI (i.e. sepsis). While her original CXR did not reveal pneumonia, a repeat study done 2 days later, on 05/09, did reveal an infiltrate/evidence of pneumonitis in the posterior lung field (unclear which side). Her urine culture grew 2 different isolates of E. faecium and mixed gram positive valeriano. While her urinalysis was negative, due to pat ient's septic picture on admission, the decision was made to treat the bacteriuria. The patient received treatment with IV vancomycin and cefepime, having completed a 5 day course and significantly clinically improved. She is stable for return to [facility] today. While CT of abdomen and pelvis showed sludge and borderling thickening of gallbladder wall, there was no clinical suspicion for cholecystitis in this patient. It is important to note that, during this admission, the patient and family had met with palliative care, and a decision was made to change her code status to DNR/DNI. Conversation was begun about transitioning the patient comfort measures including resumption of oral feeds after the new year and will need to be followed up upon at [facility]. At this time, she continues to be fed via tube feedings alone. Home Meds and New Rx's Prescriptions: Continued baclofen 10 MG tablet 10 mg Feeding Tube HS prn Qty: 30 RF: 0 acetaminophen [Tylenol] 325 MG tablet 650 mg Feeding Tube Q4H PRN PRNRF: 0 fluoxetine 20 MG capsule 20 mg Feeding Tube DAILY RF: 0 propranolol 40 MG tablet 40 mg Feeding Tube DAILY RF: 0 ipratropium-albuterol 0.5 mg-3 mg(2.5 mg base)/3 mL solution for nebulization 3 ml IH Q4H RF: 0 omeprazole 20 mg capsule,delayed release(DR/EC) 20 mg Feeding Tube DAILY RF: 0 bisacodyl [Dulcolax (bisacodyl)] 10 mg suppository 10 mg GA ONCE RF: 0 amantadine HCl 100 MG tablet 200 mg Feeding Tube BID RF: 0 polyethylene glycol 3350 17 GM powder in packet 17 gm Feeding Tube DAILY PRNRF: 0 melatonin 3 MG tablet 3 mg Feeding Tube HS PRNRF: 0 calcium carbonate 500 MG tablet,chewable 1 tab Feeding Tube .Q6H, PRN PRNRF: 0 docusate sodium 100 MG capsule 100 mg BID PRNRF: 0 ropinirole [Requip] 0.25 MG tablet 0.25 mg Feeding Tube TID RF: 0 acetaminophen 650 mg Suppository 650 mg GA Q4H PRN PRNRF: 0 naproxen sodium 220 mg Tablet 440 mg Feeding Tube BID RF: 0 Jevity 1.2 Kamlesh 0.06 gram-1.2 kcal/mL Liquid 1 Feeding Tube QID RF: 0 Rytary 48.75-195 mg Capsule, Extended Release 1 cap PO QID Qty: 1 RF: 0 Discharge Instructions Activity:: bed rest Diet:: TF: jevity as prior to admission Discharge Data Discharge Physician: Lauren Klein Exam Narrative Exam Narrative: General: A&Ox3, mumbling but understandable. Laying comfortably in bed HEENT: EOMI, MMM Heart: RRR, mildly tachycardic, no murmurs Lungs: CTAB GI: abdomen soft, nontender; feeding tube in place Extremities: trace edema BLE's, no clubbing/cyanosis DS: Data Vitals/I&O Vitals and I&O: Vital Signs Temperature 36.3 C L 05/13/18 07:25 Temperature Source Tympanic 05/13/18 07:25 Pulse 76 05/13/18 07:25 Pulse Rhythm Regular 05/13/18 09:58 Pulse 59 L 05/08/18 12:01 Respiratory Rate 16 05/13/18 07:25 Respiratory Effort Non-Labored 05/13/18 09:58 Respiratory Depth Normal 05/13/18 09:58 Respiratory Pattern Normal 05/13/18 09:58 Blood Pressure 126/68 05/13/18 07:25 Blood Pressure Mean 74 05/08/18 13:51 Blood Pressure Position Left Lateral 05/08/18 09:00 Pulse Oximetry 97 05/13/18 07:25 Oxygen Delivery Method Room Air 05/13/18 07:25 Oxygen Flow Rate 0 05/13/18 07:25 Pain Level 0 05/13/18 07:25 Comment 05/08/18 17:47 Intake & Output 05/12/18 05/12/18 05/13/18 11:59 23:59 11:59 Intake Total 727 / 1898 1171 / 1898 237 / 237 Output Total 5 / 5 0 / 5 0 / 0 Balance 722 / 1893 1171 / 1893 237 / 237 Weight 50 kg 49.9 kg Intake: IV 250 / 710 460 / 710 Intake, Tube Feeding Amount 477 / 1188 711 / 1188 237 / 237 Output: Gastric Drainage 0 / 0 Lt Upper Quadrant 0 / 0 Output, Residual 5 / 5 0 / 5 0 / 0 Other: Urine Color Yellow Yellow Urine Appearance Clear Clear Urine Odor None Normal Voiding Methods Diaper Diaper Diaper Incontinent Incontinent Incontinent Completed studies during hospitalization [Text1]: CXR 05/07/18: No acute pulmonary process. CXR 05/09/19: A region of increased density is projected over the posterior portion of the lung on the lateral projection. This region is clearly seen and could lie either in the right lower lobe or left lower lobe posteriorly. The findings would be consistent with an acute pneumonitis. CT chest/abdomen/pelvis 05/07/18: A gastrostomy tube is well positioned ending within the stomach. There are findings consistent with constipation. Gallstones are identified in the gallbladder and there is sludge with some slight thickening of the gallbladder wall. Correlation of the above findings with the patient's clinical status is recommended and if there is any further specific clinical question regarding the gallbladder status, then further assessment with an abdominal ultrasound examination is suggested. Urine C&S 05/07/18: Organism 1 ENTEROCOCCUS FAECIUM#1 COLONY COUNT 50,000 - 100,000 COLONIES/ML Organism 2 ENTEROCOCCUS FAECIUM#2 COLONY COUNT 50,000 - 100,000 COLONIES/ML Organism 3 GRAM POSITIVE VALERIANO,MIXED COLONY COUNT <10,000 COLONIES/ML (sensitivities still pending). 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) Ambulatory dysfunction (Chronic) Urinary incontinence (Chronic) Recurrent aspiration events (Chronic) Failure to thrive (Chronic) Seizure (Resolved) NMS (neuroleptic malignant syndrome) (Resolved) Abnormal EKG (Resolved) Hyperlipidemia type III (Chronic) Essential hypertension (Chronic) Anemia (Chronic) History of DIC syndrome (Resolved) Toxic metabolic encephalopathy (Resolved) UTI (urinary tract infection) (Resolved) Dysphagia (Chronic) Encephalopathy acute (Resolved) Fall (Chronic) Acute respiratory failure with hypoxia (Resolved) Pneumonia (Resolved) Anemia (Chronic) Acute kidney injury (Resolved) Parkinsons disease (Chronic) Secondary rhabdomyolysis (Resolved) Non-ST elevation [place] (NSTEMI) (Resolved) Essential hypertension (Chronic) Hyperlipidemia (Chronic) Obesity (Chronic) Osteoarthritis (Chronic) Parkinson's disease (Chronic) PEG (percutaneous endoscopic gastrostomy) adjustment/replacement/removal (Resolved) Surgical History History of vaginal hysterectomy (Resolved) Family History Mother AMI (acute myocardial infarction) Father AMI (acute myocardial infarction) Social History caregiver/support person: Yes household members: other details: lives in a SNF at [facility] housing: [facility]cc marital status: lives independently: No number of children: 2 number of grandchildren: 1 mcc: Yes current occupational status: disabled diet: other caffeine: No eating out: rarely or never Smoking/Tobacco Use Status: Never alcohol intake: never substance use type: does not use
== END 2018-05-13 11:35 | disposition intermediate care facility (04) | DRG 871 ==
LOC: ER 11:02 → MS 11:45 → ICU 14:26 → MS 05-08 16:54 → ER 05-29 11:43 → MS 05-29 11:43 → ICU 05-29 11:43
PROVIDERS: General Practice; Internal Medicine; Admitting Provider Family Medicine; Emergency Provider Student in an Organized Health Care Education/Training Program; PCP Nurse Practitioner Family; Visit Provider Internal Medicine
DX: A41.9 Sepsis, unspecified organism (principal); J18.9 Pneumonia, unspecified organism; N39.0 Urinary tract infection, site not specified; B95.2 Enterococcus as the cause of diseases classified elsewhere; Y95 Nosocomial condition; K12.0 Recurrent oral aphthae; R13.19 Other dysphagia; G20 Parkinson's disease; Z93.1 Gastrostomy status; I10 Essential (primary) hypertension; R32 Unspecified urinary incontinence; Z51.5 Encounter for palliative care; Z66 Do not resuscitate; R41.82 Altered mental status, unspecified; Q99.8 Other specified chromosome abnormalities; T17.920A Food in respiratory tract, part unspecified causing asphyxiation, initial encounter; R47.1 Dysarthria and anarthria; R62.7 Adult failure to thrive; Z68.20 Body mass index [BMI] 20.0-20.9, adult; R63.4 Abnormal weight loss; Z22.39 Carrier of other specified bacterial diseases; Z16.11 Resistance to penicillins; Z16.23 Resistance to quinolones and fluoroquinolones; Z16.29 Resistance to other single specified antibiotic; Z16.21 Resistance to vancomycin
CPT/HCPCS: 36415; 74177; 80048; 80053; 85027; 87040; 87077; 87081; 87449; 93005; 94640; 96361; 96365; 96366; 96368; 99223; 99232; 99233; 99239; 99255; 99285; J1650; 71045; 71046; 71260; 80202; 81003; 81015; 82565; 83605; 83735; 84484; 85025; 85049; 87086; 87186; 93010; G0378; J3490; J7620

== ENCOUNTER 2018-05-14 19:15 | Emergency (ER) | payer MEDICARE, MEDICAID, SELFPAY ==
[2018-05-14 19:19] VITALS: BP 118/52; PULSE 68; RESP 18; TEMP 36.3; O2SAT 98
--- NOTE | 2018-05-14 19:43 | W.ED.GENAD ---
Discharge Plan Disposition Patient Disposition: SNF (LEVEL 1) [facility] Condition: Fair Discharge Details Chief Complaint: Urinary Clinical Impression: UTI (urinary tract infection) due to Enterococcus Reason For Visit: [facility] Primary Care Provider: Barbara Almaguer ED Provider: Amanda Philip Home Meds and New Rx's Prescriptions: Continued baclofen 10 MG tablet 10 mg Feeding Tube HS prn Qty: 30 RF: 0 acetaminophen [Tylenol] 325 MG tablet 650 mg Feeding Tube Q4H PRN PRNRF: 0 fluoxetine 20 MG capsule 20 mg Feeding Tube DAILY RF: 0 propranolol 40 MG tablet 40 mg Feeding Tube DAILY RF: 0 ipratropium-albuterol 0.5 mg-3 mg(2.5 mg base)/3 mL solution for nebulization 3 ml IH Q4H RF: 0 omeprazole 20 mg capsule,delayed release(DR/EC) 20 mg Feeding Tube DAILY RF: 0 bisacodyl [Dulcolax (bisacodyl)] 10 mg suppository 10 mg NC ONCE RF: 0 amantadine HCl 100 MG tablet 200 mg Feeding Tube BID RF: 0 polyethylene glycol 3350 17 GM powder in packet 17 gm Feeding Tube DAILY PRNRF: 0 melatonin 3 MG tablet 3 mg Feeding Tube HS PRNRF: 0 calcium carbonate 500 MG tablet,chewable 1 tab Feeding Tube .Q6H, PRN PRNRF: 0 docusate sodium 100 MG capsule 100 mg BID PRNRF: 0 ropinirole [Requip] 0.25 MG tablet 0.25 mg Feeding Tube TID RF: 0 acetaminophen 650 mg Suppository 650 mg NC Q4H PRN PRNRF: 0 naproxen sodium 220 mg Tablet 440 mg Feeding Tube BID RF: 0 Jevity 1.2 Kamlesh 0.06 gram-1.2 kcal/mL Liquid 1 dose Feeding Tube QID RF: 0 Rytary 48.75-195 mg Capsule, Extended Release 1 cap PO QID Qty: 1 RF: 0 lorazepam 0.5 mg Tablet 0.5 mg Feeding Tube TID RF: 0 Discharge Instructions Instructions: Urinary Tract Infection in Women (ED) Additional Instructions: Encourage hydration. Daptomycin IV daily until clearance of infection. Patient given first dose while here. If she develops new/worsening symptoms please follow up urgently once again. Otherwise, please follow up within the next 4-5 days for reevaluation. Referrals: Barbara Almaguer NP [Primary Care Provider] - Medical Decision Making Patient is 53 y/o woman with h/o advanced Parkinson's disease, NSTEMI, hypertension, hyperlipidemia, G-tube in place, recurrent aspiration events presenting to the emergency department with c/c of UTI with culture that was reported today significant for VRE. Patient was recently admitted for fever of unknown origin. While here, she was diagnosed with health care associated pneumonia, UTI,sepsis. At this time, patient reports that she is feeling quite well. She denies any dysurea, no fevers since the time of discharge. Denies CP, SOB, cough, abdominal pain, RODRIGUEZ. On exam, patient appears at baseline. Compared to recent notes, patient appears improved. Lungs are clear, afebrile. Abdomen is soft and nontender. No CVA tenderness. Reviewed recent labs and recent notes. Patient VRE in urine culture completed today. Susceptible to Daptomycin. Will give dose of Daptomycin while here. Will also recheck labs. Called [facility] who advised that they are able to complete daily infusions at their facility. Advised that with the Daptomycin, renal function will need to be monitored, will obtain labs here. Sheis able to be reevaluated while at the rehab facility. Labs significant for elevation of white count to 11.9 Patient received hydration. She received one dose of Daptomycin, 282mg IV. She tolerated this well. Will be discharged back to [facility] with IV in place for QD dosing of Daptomycin. Advised close f/u with provider at rehab. Wrote prescription for the continued IV medication for the next week but advised that this should be followed based on clearance of infection. Advised they seek care urgently with new/worsening symptoms. Secondary to chronic medical conditions, and at the request of [facility] facility, patient transported back via EMS. Discussed plan with the patient who is in agreement. All of her questions and concerns were addressed, she is in agreement with this plan. HPI General Mode of arrival: EMS. Date/Time Provider Initiated Documentation: 05/14/18 19:18. Limitations to Documentation: no limitations. Information obtained by: patient and EMS. History of Present Illness 53 year old F presents to the emergency department with the chief complaint of UTI, described as mild (patient currently asymptomatic), Patient notes no other symptoms.; denies chest pain, cough, fever/chills, headaches, nausea/vomiting and shortness of breath. Patient did receive the following treatments prior to arrival, none Related Data Home Medications Medication Instructions Recorded Confirmed baclofen 10 mg FEEDING TUBE HS prn #30 07/25/16 05/14/18 tab-cap amantadine HCl 200 mg FEEDING TUBE BID 08/15/16 05/14/18 acetaminophen [Tylenol] 650 mg FEEDING TUBE Q4H PRN PRN 11/15/16 05/14/18 tab-cap fluoxetine 20 mg FEEDING TUBE DAILY tab-cap 11/15/16 05/14/18 polyethylene glycol 3350 17 gm FEEDING TUBE DAILY PRN 08/15/17 05/14/18 propranolol 40 mg FEEDING TUBE DAILY 12/25/17 05/14/18 calcium carbonate 1 tab FEEDING TUBE .Q6H, PRN PRN 01/04/18 05/14/18 docusate sodium 100 mg BID PRN 01/04/18 05/14/18 melatonin 3 mg FEEDING TUBE HS PRN 01/04/18 05/14/18 ropinirole [Requip] 0.25 mg FEEDING TUBE TID 03/07/18 05/14/18 Jevity 1.2 Kamlesh 1 dose FEEDING TUBE QID 03/08/18 05/14/18 acetaminophen 650 mg NC Q4H PRN PRN 03/08/18 05/14/18 naproxen sodium 440 mg FEEDING TUBE BID 03/08/18 05/14/18 bisacodyl 10 mg rectal suppository 10 mg NC ONCE 04/02/18 05/14/18 ipratropium-albuterol 0.5 mg-3 3 ml IH Q4H ml 04/02/18 05/14/18 mg(2.5 mg base)/3 mL nebulization soln omeprazole 20 mg capsule,delayed 20 mg FEEDING TUBE DAILY 04/02/18 05/14/18 release Rytary 1 cap PO QID #1 cap 04/06/18 05/14/18 lorazepam 0.5 mg FEEDING TUBE TID 05/14/18 05/14/18 Previous Rx's Medication Instructions Recorded Rytary 1 cap PO QID #1 cap 04/06/18 Allergies Allergy/AdvReac Type Severity Reaction Status Date / Time environmental Allergy Uncoded 04/05/18 05:19 General Stated Complaint: Urinary SHAWN: 3 Review of Systems Constitutional Reports as per HPI, Denies chills, Denies fever(s) and Denies poor appetite Cardiovascular Denies chest pain Respiratory Denies cough Gastrointestinal Denies abdominal pain, Denies change in bowel habits, Denies nausea and Denies vomiting Genitourinary Reports as per HPI Musculoskeletal Reports as per HPI and Denies back pain Integumentary/Breasts Reports as per HPI and Denies rash [facility] Medical History Gastrostomy tube dependent (Acute) Oral mucosal lesion (Acute) Fever (Acute) 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) Ambulatory dysfunction (Chronic) Urinary incontinence (Chronic) Recurrent aspiration events (Chronic) Failure to thrive (Chronic) Seizure (Resolved) NMS (neuroleptic malignant syndrome) (Resolved) Abnormal EKG (Resolved) Hyperlipidemia type III (Chronic) Essential hypertension (Chronic) Anemia (Chronic) History of DIC syndrome (Resolved) Toxic metabolic encephalopathy (Resolved) UTI (urinary tract infection) (Resolved) Dysphagia (Chronic) Encephalopathy acute (Resolved) Fall (Chronic) Acute respiratory failure with hypoxia (Resolved) Pneumonia (Resolved) Anemia (Chronic) Acute kidney injury (Resolved) Parkinsons disease (Chronic) Secondary rhabdomyolysis (Resolved) Non-ST elevation NM (NSTEMI) (Resolved) Essential hypertension (Chronic) Hyperlipidemia (Chronic) Obesity (Chronic) Osteoarthritis (Chronic) Parkinson's disease (Chronic) PEG (percutaneous endoscopic gastrostomy) adjustment/replacement/removal (Resolved) Surgical History History of vaginal hysterectomy (Resolved) Social History caregiver/support person: Yes household members: other details: lives in a SNF at [facility]: detention lives independently: No number of children: 2 number of grandchildren: 1 detention: Yes current occupational status: disabled diet: other caffeine: No eating out: rarely or never Smoking/Tobacco Use Status: Never alcohol intake: never substance use type: does not use Exam Const General: cooperative, comfortable, no acute distress, well groomed and ill appearing chronically Nutritional Appearance: well nourished and thin Orientation: alert and awake Resp Effort & Inspection: normal respiratory effort and no respiratory distress Auscultation: clear to auscultation bilaterally, no rales, no rhonchi and no wheezes Cardio Rate: regular rate Rhythm: regular rhythm Heart Sounds: S1 normal and S2 normal GI Inspection: normal to inspection Palpation: soft, no hepatosplenomegaly, not firm, no guarding, not rigid and nontender Back/Spine/Pelvis Back: no CVA tenderness Skin General skin exam: no rashes or lesions noted Trauma: no lacerations or abrasions Neuro General: alert and awake Cognition: normal cognition Speech: speech normal Psych Appearance: grossly normal and well kempt Mental Status: mental status grossly normal Speech and Movement: speech and movement normal Course Vital Signs Temperature 36.3 C L 05/14/18 19:19 Pulse 68 05/14/18 19:19 Respiratory Rate 18 05/14/18 19:19 Blood Pressure 118/52 L 05/14/18 19:19 Pulse Oximetry 98 05/14/18 19:19 Temperature 36.3 C L 05/14/18 19:19 Temperature Source Skin 05/14/18 19:19 Pulse 68 05/14/18 19:19 Respiratory Rate 18 05/14/18 19:19 Respiratory Effort 05/14/18 19:35 Blood Pressure 118/52 L 05/14/18 19:19 Pulse Oximetry 98 05/14/18 19:19 Oxygen Delivery Method Room Air 05/14/18 19:19 Oxygen Flow Rate 0 05/14/18 19:19
[2018-05-14] MEDS: Normal Saline 1,000 ML 1000 ML IV (19:58)
[2018-05-14 20:14] LABS: Abs Immature Grans 0.11 k/cumm (0.0-0.09); Absolute Basophil Count 0.06 k/cumm (0.0-0.2); Absolute Eosinophil Count 0.24 k/cumm (0.0-0.7); Absolute Lymphocyte Count 2.78 k/cumm (1.2-3.4); Absolute Monocyte Count 0.87 k/cumm (0.11-0.7); Absolute Neutrophil Count 7.84 k/cumm (1.2-6.7); Basophils % 0.5; HCT 32.1 % (36.0-46.0); HGB 10.5 g/dL (12.0-15.5); Immature Grans % 0.9; Lymphocytes % 23.4; Mean Corp. HGB Concentration 32.7 g/dL (32.0-36.0); Mean Corpuscular Hemoglobin 30.8 pg (27.0-33.0); Mean Corpuscular Volume 94.1 fL (80-95); Mean Platelet Volume 10.4 fL (8.0-11.0); Monocytes % 7.3; Neutrophils % 65.9; Platelet Count 311 x1000/uL (130-400); RBC 3.41 m/cumm (4.00-5.20); RBC Distribution Width 14.6 % (11.7-14.6)
--- NOTE | 2018-05-14 20:16 | ED.GENADUL_ITS ---
Discharge Plan Disposition Patient Disposition: SNF (LEVEL 1) [facility] Condition: Fair Discharge Details Chief Complaint: Urinary Clinical Impression: UTI (urinary tract infection) due to Enterococcus Reason For Visit: [facility] Primary Care Provider: Barbara Almaguer ED Provider: Amanda Philip Home Meds and New Rx's Prescriptions: Continued baclofen 10 MG tablet 10 mg Feeding Tube HS prn Qty: 30 RF: 0 acetaminophen [Tylenol] 325 MG tablet 650 mg Feeding Tube Q4H PRN PRNRF: 0 fluoxetine 20 MG capsule 20 mg Feeding Tube DAILY RF: 0 propranolol 40 MG tablet 40 mg Feeding Tube DAILY RF: 0 ipratropium-albuterol 0.5 mg-3 mg(2.5 mg base)/3 mL solution for nebulization 3 ml IH Q4H RF: 0 omeprazole 20 mg capsule,delayed release(DR/EC) 20 mg Feeding Tube DAILY RF: 0 bisacodyl [Dulcolax (bisacodyl)] 10 mg suppository 10 mg MT ONCE RF: 0 amantadine HCl 100 MG tablet 200 mg Feeding Tube BID RF: 0 polyethylene glycol 3350 17 GM powder in packet 17 gm Feeding Tube DAILY PRNRF: 0 melatonin 3 MG tablet 3 mg Feeding Tube HS PRNRF: 0 calcium carbonate 500 MG tablet,chewable 1 tab Feeding Tube .Q6H, PRN PRNRF: 0 docusate sodium 100 MG capsule 100 mg BID PRNRF: 0 ropinirole [Requip] 0.25 MG tablet 0.25 mg Feeding Tube TID RF: 0 acetaminophen 650 mg Suppository 650 mg MT Q4H PRN PRNRF: 0 naproxen sodium 220 mg Tablet 440 mg Feeding Tube BID RF: 0 Jevity 1.2 Kamlesh 0.06 gram-1.2 kcal/mL Liquid 1 dose Feeding Tube QID RF: 0 Rytary 48.75-195 mg Capsule, Extended Release 1 cap PO QID Qty: 1 RF: 0 lorazepam 0.5 mg Tablet 0.5 mg Feeding Tube TID RF: 0 Discharge Instructions Instructions: Urinary Tract Infection in Women (ED) Additional Instructions: Encourage hydration. Daptomycin IV daily until clearance of infection. Patient given first dose while here. If she develops new/worsening symptoms please follow up urgently once again. Otherwise, please follow up within the next 4-5 days for reevaluation. Referrals: Barbara Almaguer NP [Primary Care Provider] - Medical Decision Making Patient is 53 y/o woman with h/o advanced Parkinson's disease, NSTEMI, hypertension, hyperlipidemia, G-tube in place, recurrent aspiration events presenting to the emergency department with c/c of UTI with culture that was reported today significant for VRE. Patient was recently admitted for fever of unknown origin. While here, she was diagnosed with health care associated pneumonia, UTI,sepsis. At this time, patient reports that she is feeling quite well. She denies any dysurea, no fevers since the time of discharge. Denies CP, SOB, cough, abdominal pain, RODRIGUEZ. On exam, patient appears at baseline. Compared to recent notes, patient appears improved. Lungs are clear, afebrile. Abdomen is soft and nontender. No CVA tenderness. Reviewed recent labs and recent notes. Patient VRE in urine culture completed t trevon. Susceptible to Daptomycin. Will give dose of Daptomycin while here. Will also recheck labs. Called [facility] who advised that they are able to complete daily infusions at their facility. Advised that with the Daptomycin, renal function will need to be monitored, will obtain labs here. Sheis able to be reevaluated while at the rehab facility. Labs significant for elevation of white count to 11.9 Patient received hydration. She received one dose of Daptomycin, 282mg IV. She tolerated this well. Will be discharged back to [facility] with IV in place for QD dosing of Daptomycin. Advised close f/u with provider at rehab. Wrote prescription for the continued IV medication for the next week but advised that this should be followed based on clearance of infection. Advised they seek care urgently with new/worsening symptoms. Secondary to chronic medical conditions, and at the request of [facility] facility, patient transported back via EMS. Discussed plan with the patient who is in agreement. All of her questions and concerns were addressed, she is in agreement with this plan. HPI General Mode of arrival: EMS . Date/Time Provider Initiated Documentation: 05/14/18 19:18 . Limitations to Documentation: no limitations . Information obtained by: patient and EMS . History of Present Illness 53 year old F presents to the emergency department with the chief complaint of UTI, described as mild (patient currently asymptomatic), Patient notes no other symptoms.; denies chest pain, cough, fever/chills, headaches, nausea/vomiting and shortness of breath. Patient did receive the following treatments prior to arrival, none Related Data Home Medications Medication Instructions Recorded Confirmed baclofen 10 mg FEEDING TUBE HS prn #30 07/25/16 05/14/18 tab-cap amantadine HCl 200 mg FEEDING TUBE BID 08/15/16 05/14/18 acetaminophen [Tylenol] 650 mg FEEDING TUBE Q4H PRN PRN 11/15/16 05/14/18 tab-cap fluoxetine 20 mg FEEDING TUBE DAILY tab-cap 11/15/16 05/14/18 polyethylene glycol 3350 17 gm FEEDING TUBE DAILY PRN 08/15/17 05/14/18 propranolol 40 mg FEEDING TUBE DAILY 12/25/17 05/14/18 calcium carbonate 1 tab FEEDING TUBE .Q6H, PRN PRN 01/04/18 05/14/18 docusate sodium 100 mg BID PRN 01/04/18 05/14/18 melatonin 3 mg FEEDING TUBE HS PRN 01/04/18 05/14/18 ropinirole [Requip] 0.25 mg FEEDING TUBE TID 03/07/18 05/14/18 Jevity 1.2 Kamlesh 1 dose FEEDING TUBE QID 03/08/18 05/14/18 acetaminophen 650 mg MT Q4H PRN PRN 03/08/18 05/14/18 naproxen sodium 440 mg FEEDING TUBE BID 03/08/18 05/14/18 bisacodyl 10 mg rectal suppository 10 mg MT ONCE 04/02/18 05/14/18 ipratropium-albuterol 0.5 mg-3 3 ml IH Q4H ml 04/02/18 05/14/18 mg(2.5 mg base)/3 mL nebulization soln omeprazole 20 mg capsule,delayed 20 mg FEEDING TUBE DAILY 04/02/18 05/14/18 release Rytary 1 cap PO QID #1 cap 04/06/18 05/14/18 lorazepam 0.5 mg FEEDING TUBE TID 05/14/18 05/14/18 Previous Rx's Medication Instructions Recorded Rytary 1 cap PO QID #1 cap 04/06/18 Allergies Allergy/AdvReac Type Severity Reaction Status Date / Time environmental Allergy Uncoded 04/05/18 05:19 General Stated Complaint: Urinary SHAWN: 3 Review of Systems Constitutional Reports as per HPI, Denies chills, Denies fever(s) and Denies poor appetite Cardiovascular Denies chest pain Respiratory Denies cough Gastrointestinal Denies abdominal pain, Denies change in bowel habits, Denies nausea and Denies vomiting Genitourinary Reports as per HPI Musculoskeletal Reports as per HPI and Denies back pain Integumentary/Breasts Reports as per HPI and Denies rash [facility] Medical History Gastrostomy tube dependent (Acute) Oral mucosal lesion (Acute) Fever (Acute) 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) Ambulatory dysfunction (Chronic) Urinary incontinence (Chronic) Recurrent aspiration events (Chronic) Failure to thrive (Chronic) Seizure (Resolved) NMS (neuroleptic malignant syndrome) (Resolved) Abnormal EKG (Resolved) Hyperlipidemia type III (Chronic) Essential hypertension (Chronic) Anemia (Chronic) History of DIC syndrome (Resolved) Toxic metabolic encephalopathy (Resolved) UTI (urinary tract infection) (Resolved) Dysphagia (Chronic) Encephalopathy acute (Resolved) Fall (Chronic) Acute respiratory failure with hypoxia (Resolved) Pneumonia (Resolved) Anemia (Chronic) Acute kidney injury (Resolved) Parkinsons disease (Chronic) Secondary rhabdomyolysis (Resolved) Non-ST elevation RI (NSTEMI) (Resolved) Essential hypertension (Chronic) Hyperlipidemia (Chronic) Obesity (Chronic) Osteoarthritis (Chronic) Parkinson's disease (Chronic) PEG (percutaneous endoscopic gastrostomy) adjustment/replacement/removal (Resolved) Surgical History History of vaginal hysterectomy (Resolved) Social History caregiver/support person: Yes household members: other details: lives in a SNF at [facility] housing: jail lives independently: No number of children: 2 number of grandchildren: 1 jail: Yes current occupational status: disabled diet: other caffeine: No eating out: rarely or never Smoking/Tobacco Use Status: Never alcohol intake: never substance use type: does not use Exam Const General: cooperative, comfortable, no acute distress, well groomed and ill appearing chronically Nutritional Appearance: well nourished and thin Orientation: alert and awake Resp Effort & Inspection: normal respiratory effort and no respiratory distress Auscultation: clear to auscultation bilaterally, no rales, no rhonchi and no wheezes Cardio Rate: regular rate Rhythm: regular rhythm Heart Sounds: S1 normal and S2 normal GI Inspection: normal to inspection Palpation: soft, no hepatosplenomegaly, not firm, no guarding, not rigid and nontender Back/Spine/Pelvis Back: no CVA tenderness Skin General skin exam: no rashes or lesions noted Trauma: no lacerations or abrasions Neuro General: alert and awake Cognition: normal cognition Speech: speech normal Psych Appearance: grossly normal and well kempt Mental Status: mental status grossly normal Speech and Movement: speech and movement normal Course Vital Signs Temperature 36.3 C L 05/14/18 19:19 Pulse 68 05/14/18 19:19 Respiratory Rate 18 05/14/18 19:19 Blood Pressure 118/52 L 05/14/18 19:19 Pulse Oximetry 98 05/14/18 19:19 Temperature 36.3 C L 05/14/18 19:19 Temperature Source Skin 05/14/18 19:19 Pulse 68 05/14/18 19:19 Respiratory Rate 18 05/14/18 19:19 Respiratory Effort 05/14/18 19:35 Blood Pressure 118/52 L 05/14/18 19:19 Pulse Oximetry 98 05/14/18 19:19 Oxygen Delivery Method Room Air 05/14/18 19:19 Oxygen Flow Rate 0 05/14/18 19:19
[2018-05-14 20:25] LABS: ALT 21 U/L (12-78); AST 23 U/L (15-37); Albumin 3.5 g/dL (3.4-5.0); Alkaline Phosphatase 111 U/L (46-116); Anion Gap 5.1 mmol/L (3-11); BUN 23 mg/dL (7-18); Bilirubin, Total 0.4 mg/dL (0.2-1.0); CO2 31.9 mmol/L (21.0-32.0); CREATININE 0.62 mg/dL (0.55-1.02); Calcium 9.6 mg/dL (8.5-10.1); Chloride 96 mmol/L (98-107); Glucose 107 mg/dL (70-100); Potassium 4.7 mmol/L (3.5-5.1); Sodium 133 mmol/L (136-145); Total Protein 7.5 g/dL (6.4-8.2)
== END 2018-05-14 21:45 | disposition skilled nursing facility (03) ==
PROVIDERS: Emergency Provider Physician Assistant; PCP Nurse Practitioner Family
DX: N39.0 Urinary tract infection, site not specified (principal); B95.2 Enterococcus as the cause of diseases classified elsewhere; G20 Parkinson's disease; I10 Essential (primary) hypertension
CPT/HCPCS: 36415; 80053; 96361; 96374; 99284; 85025; J0878

== ENCOUNTER 2018-05-18 14:47 | Outpatient (REF) | payer MEDICARE, MEDICAID, SELFPAY ==
[2018-05-18 18:52] LABS: TSH (W/Ref FT4) 0.37 uIU/mL (0.358-3.74)
== END 2018-05-18 15:07 ==
LOC: LBN 14:47
PROVIDERS: PCP Nurse Practitioner Family; Visit Provider Family Medicine
DX: R63.4 Abnormal weight loss (principal); I10 Essential (primary) hypertension; E78.5 Hyperlipidemia, unspecified; F32.9 Major depressive disorder, single episode, unspecified; E80.4 Gilbert syndrome
CPT/HCPCS: 84443

== ENCOUNTER 2018-05-27 08:47 | Emergency (ER) | payer MEDICARE, MEDICAID, SELFPAY ==
[2018-05-27] VITALS (8 sets, daily range): BP systolic 150–263; BP diastolic 90–206; PULSE 84–119; RESP 20–33; TEMP 37.3–38.3; O2SAT 95–98
--- NOTE | 2018-05-27 09:10 | W.ED.GENAD ---
Discharge Plan Disposition Patient Disposition: [facility] Condition: Stable Discharge Details Chief Complaint: Fever Clinical Impression: Anemia, Failure to thrive, Acute alteration in mental status, Fever, Parkinsons disease Primary Care Provider: Barbara Almaguer ED Provider: Amanda Philip Home Meds and New Rx's Prescriptions: Continued baclofen 10 MG tablet 10 mg Feeding Tube HS prn Qty: 30 RF: 0 acetaminophen [Tylenol] 325 MG tablet 650 mg Feeding Tube Q4H PRN PRNRF: 0 fluoxetine 20 MG capsule 20 mg Feeding Tube DAILY RF: 0 propranolol 40 MG tablet 40 mg Feeding Tube DAILY RF: 0 ipratropium-albuterol 0.5 mg-3 mg(2.5 mg base)/3 mL solution for nebulization 3 ml IH Q4H RF: 0 omeprazole 20 mg capsule,delayed release(DR/EC) 20 mg Feeding Tube DAILY RF: 0 bisacodyl [Dulcolax (bisacodyl)] 10 mg suppository 10 mg WA ONCE RF: 0 amantadine HCl 100 MG tablet 200 mg Feeding Tube BID RF: 0 polyethylene glycol 3350 17 GM powder in packet 17 gm Feeding Tube DAILY PRNRF: 0 melatonin 3 MG tablet 3 mg Feeding Tube HS PRNRF: 0 calcium carbonate 500 MG tablet,chewable 1 tab Feeding Tube .Q6H, PRN PRNRF: 0 docusate sodium 100 MG capsule 100 mg BID PRNRF: 0 ropinirole [Requip] 0.25 MG tablet 0.25 mg Feeding Tube TID RF: 0 acetaminophen 650 mg Suppository 650 mg WA Q4H PRN PRNRF: 0 naproxen sodium 220 mg Tablet 440 mg Feeding Tube BID RF: 0 Jevity 1.2 Kamlesh 0.06 gram-1.2 kcal/mL Liquid 1 dose Feeding Tube QID RF: 0 Rytary 48.75-195 mg Capsule, Extended Release 1 cap PO QID Qty: 1 RF: 0 amantadine HCl 100 mg Capsule 100 mg PO BID RF: 0 magnesium hydroxide [Milk of Magnesia] 400 mg/5 mL Suspension 400 mg PO QAM RF: 0 carbidopa-levodopa 48.75-195 mg Capsule, Extended Release 1 cap PO QID RF: 0 daptomycin 350 mg Recon Soln 282 mg IV DAILY RF: 0 Discharge Instructions Additional Instructions: Please continue to encourage hydration. Agitation is improved after Seroquel. Dr. Nobles advises that she is good candidate for as needed seroquel. Will need her BUN and lactate reassessed, Dr. Nobles is aware of this and will order repeat labs. If she develops new/worsening symptoms please seek care urgently once again. Referrals: Barbara Almaguer, SIGNAL INSPECTOR [Primary Care Provider] - Discharge Data Discharge Date/Time-TO BE ENTERED AT DEPARTURE: 05/27/18 16:59 Medical Decision Making <Hemant Brooks MD - Last Filed: 05/28/18 16:03> 9:30 --53-year-old female with history of Parkinson's dementia, frequent aspiration events with subsequent pneumonia, here with fever since last night, concern for pneumonia from residential staff. Patient is tachycardic and febrile. Plan to check chest x-ray, CBC, lactate, blood cultures. Pt received acetaminophen WA at 7:50a at residential. Will give IVF bolus. 9:53 -- Patient with significant tremor and anxiety. Will given ativan 0.5mg IV. 10:08 -- Care signed out to HITESH Philip. <HITESH Lu - Last Filed: 05/27/18 19:01> Patient signed out to myself by Dr. Brooks with labs and imaging pending. Patient is currently receiving fluids, has received ibuprofen. G-tube. Initially, patient was noted to be very hypertensive this seems to be some false read from the patient anxious state and constant shaking. This was taken manually by nursing staff and was found to be 150/90. Patient remains febrile at 38.1, ibuprofen is currently going in. Has received WA Tylenol this morning. Dr. Brooks also ordered IV Ativan for the patient to help with acute agitated state. I did evaluate the patient, she appears cachectic and very anxious compared to when I saw her recently. I did treat her recently approximately 2 weeks ago VRE in her urine. She was on IV daptomycin at that time Evaluation of the labs, patient is noted to be anemic but stable so. Sodium is elevated at 149. Lactate is elevated at 2.4. Chest x-ray reviewed by radiology: FINDINGS: Lungs: Stable hyperaerated lungs consistent with deep inspiratory effort vs reactive airway disease vs mild COPD . Resolution of left basilar opacity since the previous exam. Pleural space: Unremarkable. No pleural effusion. No pneumothorax. Heart/Mediastinum: Unremarkable. No cardiomegaly. Bones/joints: Dextroscoliosis. Low density bone consistent with osteopenia/osteoporosis. Other findings: Patient rotation to the left. IMPRESSION: 1. Stable hyperaerated lungs consistent with deep inspiratory effort vs reactive airway disease vs mild COPD . 2. Resolution of left basilar opacity since the previous exam. Patient afebrile after Ibuprofen. She was initially given 0.5mg Ativan, continues to be tremulous and appear anxious. Will augment with another 1mg Ativan. Labs reviewed. Patient noted to be anemic which appears chronic and unchanged. BUN 45, patient has been elevated previously, this is likely associated with dehydration. Lactate elevated at 2.4, again this is may be associated with dehydration. Consulted with Dr. Nobles regarding patient's labs. In particular, at this point, I am unclear as to where her current agitated state is stemming from. I did review recent notes and it seems that this is not a new issue for the patient. She did speak with Dr. Dyson recently and expressed that she does not want to be hospitalized as frequently as she has been and seems to be focusing more on comfort. Patient was recently made a DNR DNI and a close form was filled out between the 2 of them. When I spoke with Dr. Nobles, she advised that this type of agitation, rigidity and tremulousness has been a cyclical behavior for the patient. She reports that she has been declining over the past 7-8 months that these episodes have been becoming more frequently and typically cycle every 2-4 weeks. She reports that typically these lead to admission and that supportive care leads to resolution of her symptoms appear there is concern for possible occult cancer as the patient has declined so rapidly and has had a large amount of weight loss. However, per the patient's wishes, this is not been addressed further. She has had CAT scans as well as an EGD without any underlying findings. She advised speaking with the patient's brother who is her healthcare agent to discuss the patient's wishes further Spoke with Carlos Alberto, patient's brother, regarding the patient's wishes. I did discuss that if he were to continue to pursue further diagnostics including CT and/or LP, we would likely need to sedate the patient. However, family advises that the patient has been expressing her wishes recently and has stated enough is enough. He reports do not do that in regard to further diagnostic studies, I just want her to be comfortable. This is in line with the recent note from palliative care as well as the colst form which is in agreement with treatment in order to keep the patient comfortable does not wish for further interventions beyond that Consulted with Dr. Tao with palliative care. She advised seroquel 6.25 through g-tube. May dose Q6hr PRN. Advised that this may help with hallucinations associated with dementia as well as underlying anxiety. Spoke with Dr. Nobles again and discussed recommendations. She advised a slightly higher dosing at 12.5. Will give this dose now. Reevaluated the patient. While she still appears slightly tremulous, she is much improved. Spoke with Dr. Nobles once again after Seroquel, she is much improved. She will recheck the BUN and lactate, will continue to hydrate the patient. As she is appearing improved and calmer, we will restart IV and Iv hydration. They will continue to hydrate, she will monitor an does not feel that these need to be reassessed at this time, reports that they will continue to monitor her there. Spoke with nursing staff and advised that we replace her IV to hydrate the patient. Dr. Nobles also recommended that if the IV gets dislodged when at the residential facility, they will be able to hydrate through her G-tube. I relayed this information to nursing staff as well as the fact that the patient's BUN and lactate will need to be rechecked, Dr. Nobles again will facilitate this. Advised that they bring her back with any new or worsening symptoms. At this point, no acute infection is noted. Rather, this seems cyclical with unknown etiology. All quesitons and concerns were addressed. HPI <Hemant Brooks MD - Last Filed: 05/28/18 16:03> General Mode of arrival: ambulatory. Date/Time Provider Initiated Documentation: 05/27/18 09:09. Limitations to Documentation: no limitations. Information obtained by: patient. HPI Narrative: 53-year-old female with history of Parkinson's dementia, frequent aspiration events and healthcare associated pneumonia, sent from nursing facility for concern for pneumonia. Apparently fever started last night. History and review of times limited as patient has dementia. [facility] notes concern for possible pneumonia and request screening labs and chest x-ray. Related Data Home Medications Medication Instructions Recorded Confirmed baclofen 10 mg FEEDING TUBE HS prn #30 07/25/16 05/27/18 tab-cap amantadine HCl 200 mg FEEDING TUBE BID 08/15/16 05/27/18 acetaminophen [Tylenol] 650 mg FEEDING TUBE Q4H PRN PRN 11/15/16 05/27/18 tab-cap fluoxetine 20 mg FEEDING TUBE DAILY tab-cap 11/15/16 05/27/18 polyethylene glycol 3350 17 gm FEEDING TUBE DAILY PRN 08/15/17 05/27/18 propranolol 40 mg FEEDING TUBE DAILY 12/25/17 05/27/18 calcium carbonate 1 tab FEEDING TUBE .Q6H, PRN PRN 01/04/18 05/27/18 docusate sodium 100 mg BID PRN 01/04/18 05/27/18 melatonin 3 mg FEEDING TUBE HS PRN 01/04/18 05/27/18 ropinirole [Requip] 0.25 mg FEEDING TUBE TID 03/07/18 05/27/18 Jevity 1.2 Kamlesh 1 dose FEEDING TUBE QID 03/08/18 05/27/18 acetaminophen 650 mg WA Q4H PRN PRN 03/08/18 05/27/18 naproxen sodium 440 mg FEEDING TUBE BID 03/08/18 05/14/18 bisacodyl 10 mg rectal suppository 10 mg WA ONCE 04/02/18 05/27/18 ipratropium-albuterol 0.5 mg-3 3 ml IH Q4H ml 04/02/18 05/27/18 mg(2.5 mg base)/3 mL nebulization soln omeprazole 20 mg capsule,delayed 20 mg FEEDING TUBE DAILY 04/02/18 05/27/18 release Rytary 1 cap PO QID #1 cap 04/06/18 05/14/18 amantadine HCl 100 mg PO BID 05/27/18 05/27/18 carbidopa-levodopa 1 cap PO QID 05/27/18 05/27/18 daptomycin 282 mg IV DAILY 05/27/18 05/27/18 magnesium hydroxide [Milk of 400 mg PO QAM 05/27/18 05/27/18 Magnesia] Previous Rx's Medication Instructions Recorded Rytary 1 cap PO QID #1 cap 04/06/18 Allergies Allergy/AdvReac Type Severity Reaction Status Date / Time environmental Allergy Uncoded 04/05/18 05:19 General Stated Complaint: Fever SHAWN: 3 <HITESH Lu - Last Filed: 05/27/18 19:01> General Mode of arrival: EMS. Limitations to Documentation: altered mental status. Information obtained by: EMS. 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) Ambulatory dysfunction (Chronic) Urinary incontinence (Chronic) Recurrent aspiration events (Chronic) Failure to thrive (Chronic) Seizure (Resolved) NMS (neuroleptic malignant syndrome) (Resolved) Abnormal EKG (Resolved) Hyperlipidemia type III (Chronic) Essential hypertension (Chronic) Anemia (Chronic) History of DIC syndrome (Resolved) Toxic metabolic encephalopathy (Resolved) UTI (urinary tract infection) (Resolved) Dysphagia (Chronic) Encephalopathy acute (Resolved) Fall (Chronic) Acute respiratory failure with hypoxia (Resolved) Pneumonia (Resolved) Anemia (Chronic) Acute kidney injury (Resolved) Parkinsons disease (Chronic) Secondary rhabdomyolysis (Resolved) Non-ST elevation ID (NSTEMI) (Resolved) Essential hypertension (Chronic) Hyperlipidemia (Chronic) Obesity (Chronic) Osteoarthritis (Chronic) Parkinson's disease (Chronic) PEG (percutaneous endoscopic gastrostomy) adjustment/replacement/removal (Resolved) Surgical History History of vaginal hysterectomy (Resolved) Family History Mother AMI (acute myocardial infarction) Father AMI (acute myocardial infarction) Social History caregiver/support person: Yes household members: other details: lives in a SNF at [facility]: residential lives independently: No number of children: 2 number of grandchildren: 1 residential: Yes current occupational status: disabled diet: other caffeine: No eating out: rarely or never Smoking/Tobacco Use Status: Never alcohol intake: never substance use type: does not use Exam <Hemant Brooks MD - Last Filed: 05/28/18 16:03> Const General: other (tremors) Orientation: alert Limitations: altered mental status and physical limitations HENWA Head: normocephalic and atraumatic Mouth: moist mucous membranes Eyes Conjunctivae: normal conjunctivae Sclera: normal sclerae EOM: EOM intact bilaterally Neck Neck: trachea midline and supple Resp Auscultation: clear to auscultation bilaterally, no rales, no rhonchi and no wheezes Cardio Jugular venous pressure: no JVD Rate: tachycardic Rhythm: regular rhythm GI Palpation: soft, not firm, no guarding, no masses, not rigid and nontender Skin General skin exam: no rashes or lesions noted Neuro General: alert and awake Motor: tremor and other (spasms full body) Extrem General: no edema Psych Appearance: grossly normal Mental Status: mental status grossly normal Speech and Movement: speech and movement normal Course <Hemant Brooks MD - Last Filed: 05/28/18 16:03> Vital Signs Temperature 38.1 C H 05/27/18 08:41 Pulse 115 H 05/27/18 08:41 Respiratory Rate 33 H 05/27/18 08:41 Pulse Oximetry 98 05/27/18 08:41 Temperature 38.1 C H 05/27/18 08:41 Temperature Source Tympanic 05/27/18 08:41 Pulse 115 H 05/27/18 08:41 Respiratory Rate 33 H 05/27/18 08:41 Respiratory Effort 05/27/18 08:59 Pulse Oximetry 98 05/27/18 08:41 Oxygen Delivery Method Room Air 05/27/18 08:41 Oxygen Flow Rate 0 05/27/18 08:41 Pain Level 5 05/27/18 08:41 Comment 05/27/18 08:41 Sign Out <Hemant Brooks MD - Last Filed: 05/28/18 16:03> Sign Out Data: Sign Out Comment: Follow-up on labs. Follow-up on cxr. Reassess BP after ativan. Discuss with patient's residential provider. Last updated by Hemant Brooks MD at 05/27/18 10:16
--- NOTE | 2018-05-27 09:31 | ED.GENADUL_ITS ---
Discharge Plan Disposition Patient Disposition: [facility] Condition: Stable Discharge Details Chief Complaint: Fever Clinical Impression: Anemia, Failure to thrive, Acute alteration in mental status, Fever, Parkinsons disease Primary Care Provider: Barbara Almaguer ED Provider: Amanda Philip Home Meds and New Rx's Prescriptions: Continued baclofen 10 MG tablet 10 mg Feeding Tube HS prn Qty: 30 RF: 0 acetaminophen [Tylenol] 325 MG tablet 650 mg Feeding Tube Q4H PRN PRNRF: 0 fluoxetine 20 MG capsule 20 mg Feeding Tube DAILY RF: 0 propranolol 40 MG tablet 40 mg Feeding Tube DAILY RF: 0 ipratropium-albuterol 0.5 mg-3 mg(2.5 mg base)/3 mL solution for nebulization 3 ml IH Q4H RF: 0 omeprazole 20 mg capsule,delayed release(DR/EC) 20 mg Feeding Tube DAILY RF: 0 bisacodyl [Dulcolax (bisacodyl)] 10 mg suppository 10 mg NH ONCE RF: 0 amantadine HCl 100 MG tablet 200 mg Feeding Tube BID RF: 0 polyethylene glycol 3350 17 GM powder in packet 17 gm Feeding Tube DAILY PRNRF: 0 melatonin 3 MG tablet 3 mg Feeding Tube HS PRNRF: 0 calcium carbonate 500 MG tablet,chewable 1 tab Feeding Tube .Q6H, PRN PRNRF: 0 docusate sodium 100 MG capsule 100 mg BID PRNRF: 0 ropinirole [Requip] 0.25 MG tablet 0.25 mg Feeding Tube TID RF: 0 acetaminophen 650 mg Suppository 650 mg NH Q4H PRN PRNRF: 0 naproxen sodium 220 mg Tablet 440 mg Feeding Tube BID RF: 0 Jevity 1.2 Kamlesh 0.06 gram-1.2 kcal/mL Liquid 1 dose Feeding Tube QID RF: 0 Rytary 48.75-195 mg Capsule, Extended Release 1 cap PO QID Qty: 1 RF: 0 amantadine HCl 100 mg Capsule 100 mg PO BID RF: 0 magnesium hydroxide [Milk of Magnesia] 400 mg/5 mL Suspension 400 mg PO QAM RF: 0 carbidopa-levodopa 48.75-195 mg Capsule, Extended Release 1 cap PO QID RF: 0 daptomycin 350 mg Recon Soln 282 mg IV DAILY RF: 0 Discharge Instructions Additional Instructions: Please continue to encourage hydration. Agitation is improved after Seroquel. Dr. Nobles advises that she is good candidate for as needed seroquel. Will need her BUN and lactate reassessed, Dr. Nobles is aware of this and will order repeat labs. If she develops new/worsening symptoms please seek care urgently once again. Referrals: Barbara Almaguer, BE[facility]PERATOR [Primary Care Provider] - Discharge Data Discharge Date/Time-TO BE ENTERED AT DEPARTURE: 05/27/18 16:59 Medical Decision Making <Hemant Brooks MD - Last Filed: 05/28/18 16:03> 9:30 --53-year-old female with history of Parkinson's dementia, frequent aspiration events with subsequent pneumonia, here with fever since last night, concern for pneumonia from intermediate staff. Patient is tachycardic and febrile. Plan to check chest x-ray, CBC, lactate, blood cultures. Pt received acetaminophen NH at 7:50a at intermediate. Will give IVF bolus. 9:53 -- Patient with significant tremor and anxiety. Will given ativan 0.5mg IV. 10:08 -- Care signed out to HITESH Philip. <HITESH Lu - Last Filed: 05/27/18 19:01> Patient signed out to myself by Dr. Brooks with labs and imaging pending. Patient is currently receiving fluids, has received ibuprofen. G-tube. Initially, patient was noted to be very hypertensive this seems to be some false read from the patient anxious state and constant shaking. This was taken m anually by nursing staff and was found to be 150/90. Patient remains febrile at 38.1, ibuprofen is currently going in. Has received NH Tylenol this morning. Dr. Brooks also ordered IV Ativan for the patient to help with acute agitated state. I did evaluate the patient, she appears cachectic and very anxious compared to when I saw her recently. I did treat her recently approximately 2 weeks ago VRE in her urine. She was on IV daptomycin at that time Evaluation of the labs, patient is noted to be anemic but stable so. Sodium is elevated at 149. Lactate is elevated at 2.4. Chest x-ray reviewed by radiology: FINDINGS: Lungs: Stable hyperaerated lungs consistent with deep inspiratory effort vs reactive airway disease vs mild COPD . Resolution of left basilar opacity since the previous exam. Pleural space: Unremarkable. No pleural effusion. No pneumothorax. Heart/Mediastinum: Unremarkable. No cardiomegaly. Bones/joints: Dextroscoliosis. Low density bone consistent with osteopenia/o steoporosis. Other findings: Patient rotation to the left. IMPRESSION: 1. Stable hyperaerated lungs consistent with deep inspiratory effort vs reactive airway disease vs mild COPD . 2. Resolution of left basilar opacity since the previous exam. Patient afebrile after Ibuprofen. She was initially given 0.5mg Ativan, continues to be tremulous and appear anxious. Will augment with another 1mg Ativan. Labs reviewed. Patient noted to be anemic which appears chronic and unchanged. BUN 45, patient has been elevated previously, this is likely associated with dehydration. Lactate elevated at 2.4, again this is may be associated with dehydration. Consulted with Dr. Nobles regarding patient's labs. In particular, at this point, I am unclear as to where her current agitated state is stemming from. I did review recent notes and it seems that this is not a new issue for the patient. She did speak with Dr. Dyson recently and expressed that she does not want to be hospitalized as frequently as she has been and seems to be focusing more on comfort. Patient was recently made a DNR DNI and a close form was filled out between the 2 of them. When I spoke with Dr. Nobles, she advised that this type of agitation, rigidity and tremulousness has been a cyclical behavior for the patient. She reports that she has been declining over the past 7-8 months that these episodes have been becoming more frequently and typically cycle every 2-4 weeks. She reports that typically these lead to admission and that supportive care leads to resolution of her symptoms appear there is concern for possible occult cancer as the patient has declined so rapidly and has had a large amount of weight loss. However, per the patient's wishes, this is not been addressed further. She has had CAT scans as well as an EGD without any underlying findings. She advised speaking with the patient's brother who is her healthcare agent to discuss the patient's wishes further Spoke with Carlos Alberto, patient's brother, regarding the patient's wishes. I did discuss that if he were to continue to pursue further diagnostics including CT and/or LP, we would likely need to sedate the patient. However, family advises that the patient has been expressing her wishes recently and has stated enough is enough. He reports do not do that in regard to further diagnostic studies, I just want her to be comfortable. This is in line with the recent note from palliative care as well as the colst form which is in agreement with treatment in order to keep the patient comfortable does not wish for further interventions beyond that Consulted with Dr. Tao with palliative care. She advised seroquel 6.25 through g-tube. May dose Q6hr PRN. Advised that this may help with hallucinations associated with dementia as well as underlying anxiety. Spoke with Dr. Nobles again and discussed recommendations. She advised a slightly higher dosing at 12.5. Will give this dose now. Reevaluated the patient. While she still appears slightly tremulous, she is much improved. Spoke with Dr. Nobles once again after Seroquel, she is much improved. She will recheck the BUN and lactate, will continue to hydrate the patient. As she is appearing improved and calmer, we will restart IV and Iv hydration. They will continue to hydrate, she will monitor an does not feel that these need to be reassessed at this time, reports that they will continue to monitor her there. Spoke with nursing staff and advised that we replace her IV to hydrate the patient. Dr. Nobles also recommended that if the IV gets dislodged when at the intermediate facility, they will be able to hydrate through her G-tube. I relayed this information to nursing staff as well as the fact that the patient's BUN and lactate will need to be rechecked, Dr. Nobles again will facilitate this. Advised that they bring her back with any new or worsening symptoms. At this point, no acute infection is noted. Rather, this seems cyclical with unknown etiology. All quesitons and concerns were addressed. HPI <Hemant Brooks MD - Last Filed: 05/28/18 16:03> General Mode of arrival: ambulatory . Date/Time Provider Initiated Documentation: 05/27/18 09:09 . Limitations to Documentation: no limitations . Information obtained by: patient . HPI Narrative: 53-year-old female with history of Parkinson's dementia, frequent aspiration events and healthcare associated pneumonia, sent from nursing facility for concern for pneumonia. Apparently fever started last night. History and review of times limited as patient has dementia. I spoke with Dr. Nobles at [facility] re[facility] who notes concern for possible pneumonia and request screening labs and chest x-ray. Related Data Home Medications Medication Instructions Recorded Confirmed baclofen 10 mg FEEDING TUBE HS prn #30 07/25/16 05/27/18 tab-cap amantadine HCl 200 mg FEEDING TUBE BID 08/15/16 05/27/18 acetaminophen [Tylenol] 650 mg FEEDING TUBE Q4H PRN PRN 11/15/16 05/27/18 tab-cap fluoxetine 20 mg FEEDING TUBE DAILY tab-cap 11/15/16 05/27/18 polyethylene glycol 3350 17 gm FEEDING TUBE DAILY PRN 08/15/17 05/27/18 propranolol 40 mg FEEDING TUBE DAILY 12/25/17 05/27/18 calcium carbonate 1 tab FEEDING TUBE .Q6H, PRN PRN 01/04/18 05/27/18 docusate sodium 100 mg BID PRN 01/04/18 05/27/18 melatonin 3 mg FEEDING TUBE HS PRN 01/04/18 05/27/18 ropinirole [Requip] 0.25 mg FEEDING TUBE TID 03/07/18 05/27/18 Jevity 1.2 Kamlesh 1 dose FEEDING TUBE QID 03/08/18 05/27/18 acetaminophen 650 mg NH Q4H PRN PRN 03/08/18 05/27/18 naproxen sodium 440 mg FEEDING TUBE BID 03/08/18 05/14/18 bisacodyl 10 mg rectal suppository 10 mg NH ONCE 04/02/18 05/27/18 ipratropium-albuterol 0.5 mg-3 3 ml IH Q4H ml 04/02/18 05/27/18 mg(2.5 mg base)/3 mL nebulization soln omeprazole 20 mg capsule,delayed 20 mg FEEDING TUBE DAILY 04/02/18 05/27/18 release Rytary 1 cap PO QID #1 cap 04/06/18 05/14/18 amantadine HCl 100 mg PO BID 05/27/18 05/27/18 carbidopa-levodopa 1 cap PO QID 05/27/18 05/27/18 daptomycin 282 mg IV DAILY 05/27/18 05/27/18 magnesium hydroxide [Milk of 400 mg PO QAM 05/27/18 05/27/18 Magnesia] Previous Rx's Medication Instructions Recorded Rytary 1 cap PO QID #1 cap 04/06/18 Allergies Allergy/AdvReac Type Severity Reaction Status Date / Time environmental Allergy Uncoded 04/05/18 05:19 General Stated Complaint: Fever SHAWN: 3 <HITESH Lu - Last Filed: 05/27/18 19:01> General Mode of arrival: EMS . Limitations to Documentation: altered mental status . Information obtained by: EMS . 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) Ambulatory dysfunction (Chronic) Urinary incontinence (Chronic) Recurrent aspiration events (Chronic) Failure to thrive (Chronic) Seizure (Resolved) NMS (neuroleptic malignant syndrome) (Resolved) Abnormal EKG (Resolved) Hyperlipidemia type III (Chronic) Essential hypertension (Chronic) Anemia (Chronic) History of DIC syndrome (Resolved) Toxic metabolic encephalopathy (Resolved) UTI (urinary tract infection) (Resolved) Dysphagia (Chronic) Encephalopathy acute (Resolved) Fall (Chronic) Acute respiratory failure with hypoxia (Resolved) Pneumonia (Resolved) Anemia (Chronic) Acute kidney injury (Resolved) Parkinsons disease (Chronic) Secondary rhabdomyolysis (Resolved) Non-ST elevation NV (NSTEMI) (Resolved) Essential hypertension (Chronic) Hyperlipidemia (Chronic) Obesity (Chronic) Osteoarthritis (Chronic) Parkinson's disease (Chronic) PEG (percutaneous endoscopic gastrostomy) adjustment/replacement/removal (Resolved) Surgical History History of vaginal hysterectomy (Resolved) Family History Mother AMI (acute myocardial infarction) Father AMI (acute myocardial infarction) Social History caregiver/support person: Yes household members: other details: lives in a SN[facility]: intermediate lives independently: No number of children: 2 number of grandchildren: 1 intermediate: Yes current occupational status: disabled diet: other caffeine: No eating out: rarely or never Smoking/Tobacco Use Status: Never alcohol intake: never substance use type: does not use Exam <Hemant Brooks MD - Last Filed: 05/28/18 16:03> Const General: other (tremors) Orientation: alert Limitations: altered mental status and physical limitations HENMT Head: normocephalic and atraumatic Mouth: moist mucous membranes Eyes Conjunctivae: normal conjunctivae Sclera: normal sclerae EOM: EOM intact bilaterally Neck Neck: trachea midline and supple Resp Auscultation: clear to auscultation bilaterally, no rales, no rhonchi and no wheezes Cardio Jugular venous pressure: no JVD Rate: tachycardic Rhythm: regular rhythm GI Palpation: soft, not firm, no guarding, no masses, not rigid and nontender Skin General skin exam: no rashes or lesions noted Neuro General: alert and awake Motor: tremor and other (spasms full body) Extrem General: no edema Psych Appearance: grossly normal Mental Status: mental status grossly normal Speech and Movement: speech and movement normal Course <Hemant Brooks MD - Last Filed: 05/28/18 16:03> Vital Signs Temperature 38.1 C H 05/27/18 08:41 Pulse 115 H 05/27/18 08:41 Respiratory Rate 33 H 05/27/18 08:41 Pulse Oximetry 98 05/27/18 08:41 Temperature 38.1 C H 05/27/18 08:41 Temperature Source Tympanic 05/27/18 08:41 Pulse 115 H 05/27/18 08:41 Respiratory Rate 33 H 05/27/18 08:41 Respiratory Effort 05/27/18 08:59 Pulse Oximetry 98 05/27/18 08:41 Oxygen Delivery Method Room Air 05/27/18 08:41 Oxygen Flow Rate 0 05/27/18 08:41 Pain Level 5 05/27/18 08:41 Comment 05/27/18 08:41 Sign Out <Hemant Brooks MD - Last Filed: 05/28/18 16:03> Sign Out Data: Sign Out Comment: Follow-up on labs. Follow-up on cxr. Reassess BP after ativan. Discuss with patient's intermediate provider. Last updated by Hemant Brooks MD at 05/27/18 10:16
[2018-05-27] MEDS: Lactated Ringers 1,000 ML 125 ML IV (10:07)
[2018-05-27] MEDS: LORazepam 2 MG/ML VIAL 0.5 MG IVP (10:07)
[2018-05-27 10:10] LABS: Abs Immature Grans 0.01 k/cumm (0.0-0.09); Absolute Basophil Count 0.06 k/cumm (0.0-0.2); Absolute Eosinophil Count 0.02 k/cumm (0.0-0.7); Absolute Lymphocyte Count 0.83 k/cumm (1.2-3.4); Absolute Monocyte Count 0.23 k/cumm (0.11-0.7); Absolute Neutrophil Count 7.08 k/cumm (1.2-6.7); Basophils % 0.7; Eosinophils % 0.2; HCT 32.8 % (36.0-46.0); HGB 10.4 g/dL (12.0-15.5); Immature Grans % 0.1; Lymphocytes % 10.1; Mean Corp. HGB Concentration 31.7 g/dL (32.0-36.0); Mean Corpuscular Hemoglobin 31.5 pg (27.0-33.0); Mean Corpuscular Volume 99.4 fL (80-95); Mean Platelet Volume 11.1 fL (8.0-11.0); Monocytes % 2.8; Neutrophils % 86.1; Platelet Count 392 x1000/uL (130-400); RBC Distribution Width 15.1 % (11.7-14.6); White Blood Cell Count 8.23 k/cumm (4.4-10.8)
[2018-05-27 10:15] LABS: Lactate 2.4 mmol/L (0.6-1.4)
[2018-05-27 10:33] LABS: ALT 21 U/L (12-78); AST 20 U/L (15-37); Alkaline Phosphatase 103 U/L (46-116); Anion Gap 8.6 mmol/L (3-11); BUN 45 mg/dL (7-18); Bilirubin, Total 0.7 mg/dL (0.2-1.0); CO2 30.4 mmol/L (21.0-32.0); CREATININE 0.96 mg/dL (0.55-1.02); Calcium 10.2 mg/dL (8.5-10.1); Chloride 110 mmol/L (98-107); Glucose 121 mg/dL (70-100); Potassium 4.7 mmol/L (3.5-5.1); Sodium 149 mmol/L (136-145); Total Protein 8.1 g/dL (6.4-8.2)
--- NOTE | 2018-05-27 10:56 | DI.RAD_ITS ---
SYMPTOMS/DIAGNOSIS: COUGH CHEST: Frontal and lateral views. Comparison 05/09/18. The heart size and pulmonary vasculature are within normal limits. The lungs are clear. No effusions or pneumothoraces are identified. Degenerative changes are seen in the spine. IMPRESSION: No acute pulmonary process.
--- NOTE | 2018-05-27 11:02 | DI.VRAD_ITS ---
EXAM: XR Chest, 2 Views EXAM DATE/TIME: 05/27/2018 9:16 AM CLINICAL HISTORY: 53 years old, female; Signs and symptoms; Cough TECHNIQUE: XR of the chest, 2 views. COMPARISON: CR XR CHEST 2V PA LATERAL 05/09/2018 10:40 AM FINDINGS: Lungs: Stable hyperaerated lungs consistent with deep inspiratory effort vs reactive airway disease vs mild COPD . Resolution of left basilar opacity since the previous exam. Pleural space: Unremarkable. No pleural effusion. No pneumothorax. Heart/Mediastinum: Unremarkable. No cardiomegaly. Bones/joints: Dextroscoliosis. Low density bone consistent with osteopenia/osteoporosis. Other findings: Patient rotation to the left. IMPRESSION: 1. Stable hyperaerated lungs consistent with deep inspiratory effort vs reactive airway disease vs mild COPD . 2. Resolution of left basilar opacity since the previous exam. Dictated and Authenticated by: Brennon Huynh MD. Ordering:DONNIE Marcos MD
[2018-05-27] MEDS: Ibuprofen 600 MG TAB NG (11:15)
[2018-05-27 11:32] LABS: Lipase 131 U/L (73-393)
[2018-05-27] MEDS: LORazepam 2 MG/ML VIAL 1 MG IM (11:40)
[2018-05-27] MEDS: Lactated Ringers 1,000 ML 1000 ML IV (12:08)
[2018-05-27 12:15] LABS: Bilirubin Negative (Negative); Blood Negative (Negative); Clarity Clear; Glucose Negative (Negative); Ketones Trace mg/dL (Negative); Leukocyte Esterase Trace (Negative); Nitrite Negative (Negative); Specific Gravity >= 1.030 (1.005-1.025)
[2018-05-27 12:27] LABS: Bacteria Moderate HPF (Negative); Casts Negative LPF (Negative); Crystals Negative HPF (Negative); Epithelial Cells Many HPF (Negative); Mucus Moderate (Negative); RBC Negative (0-2)
[2018-05-27 12:28] LABS: C & S Indicated? No/Sq. Contamination
--- NOTE | 2018-05-27 13:33 | NUR.NOTE ---
Nursing Note: Pt remains restless in the bed. positioned for comfort several times. frequent safety checks due to fall risk and patient trying to crawl oob.
[2018-05-27] MEDS: QUEtiapine 25 MG TAB 6.25 MG PO (15:04)
--- NOTE | 2018-05-27 15:34 | NUR.NOTE ---
Nursing Note: Pt repositioned for comfort, cleaned of incontinence and linens chnages. medicated as ordered. remains restless. will continue to monitor
== END 2018-05-27 16:59 | disposition intermediate care facility (04) ==
PROVIDERS: Student in an Organized Health Care Education/Training Program; Emergency Provider Physician Assistant; PCP Nurse Practitioner Family
DX: R50.9 Fever, unspecified (principal); F41.9 Anxiety disorder, unspecified; R45.1 Restlessness and agitation; R62.7 Adult failure to thrive; G31.83 Neurocognitive disorder with Lewy bodies; D64.9 Anemia, unspecified; E86.0 Dehydration; I10 Essential (primary) hypertension
CPT/HCPCS: 36415; 80053; 83690; 87040; 87449; 96361; 96372; 96374; 99284; 71046; 81003; 81015; 83605; 85025; 99285; J0131; J2060